=== PATIENT | female | born 1955 | race Caucasian/White ===

== ENCOUNTER 2017-10-30 08:05 | Outpatient (RCR) | payer OTHER, MEDICAID, SELFPAY | END 2017-11-08 23:59 | LOC: WC 08:05 | PROVIDERS: Family Provider Family Medicine Geriatric Medicine; PCP Family Medicine Geriatric Medicine; Visit Provider Nurse Practitioner | DX: E11.622 Type 2 diabetes mellitus with other skin ulcer (principal); Z86.14 Personal history of Methicillin resistant Staphylococcus aureus infection; L97.822 Non-pressure chronic ulcer of other part of left lower leg with fat layer exposed | CPT/HCPCS: 97605; 99212; G0463 ==

== ENCOUNTER → 2017-11-18 14:26 | Outpatient (CLI) | payer OTHER, MEDICAID, SELFPAY | PROVIDERS: Family Provider Family Medicine Geriatric Medicine; PCP Family Medicine Geriatric Medicine; Visit Provider Family Medicine Geriatric Medicine | DX: R19.7 Diarrhea, unspecified (principal) | CPT/HCPCS: 82274; 83630; 87177; 87209; 87493; 87506 ==

== ENCOUNTER 2017-12-07 08:15 | Outpatient (RCR) | payer OTHER, MEDICAID, SELFPAY ==
[2017-11-16 09:27] VITALS: BP 103/50; PULSE 104; RESP 18; TEMP 35.5
--- NOTE | 2017-11-16 10:15 | PN.PCM_ITS ---
Type of Wound Date of Service: 11/16/17 Chief Complaint: Nonhealing MRSA ulcer left knee. History of Wound: Surgery 10/20/17 - Surgical preparation left knee with incision and drainage and excisional debridement nonhealing diabetic MRSA ulcer (9 cm2). Wound care - VAC. Operative culture - negative. Was treated with Doxycycline perioperatively and has finished them. She has a history of MRSA from a culture in 05/25. Prealbumin from 10/21/17 was 13.5. She takes nutritional supplementation with protein to help the healing process. CT scan from 09/24/17 showed subcutaneous edema/cellulitis and no evidence of soft tissue abscess or osteomyelitis. Status post total knee arthroplasty. Today she denies any fever. Her appetite is good. Progress of Wound: Recent surgery on 10/20/17. - Physical Exam Vital Signs Temp Pulse Resp BP 96 F L 104 H 18 103/50 L 11/16/17 09:27 11/16/17 09:27 11/16/17 09:27 11/16/17 09:27 Wound Measurements and Assessment - Nurse 1 - General Ulcer Measurement Start: 11/16/17 08:40 Freq: Status: Active Protocol: Activity Type Activity Date Activity User E-Sign Co-Sign Detail Recorded Client Recorded Date Recorded By Document 11/16/17 09:27 DL [id number] 11/16/17 09:29 DL 11/16/17 09:27 Wound Center Nurse 1 [Ulcer Assessment Protocol: WC.WD.LOC] #2 L Knee -Current Size (cm) - Length 2.5 -Current Size (cm) - Width 4.2 -Current Size (cm) - Depth 1.2 -Total Square Cm 10.50 -Photo Taken No -Undermining/Tunneling Starts (O' 9 clock) -Undermining/Tunneling Ends (O'clock) 12 -Maximum Distance (cm) 1.6 -Exudate Amt Medium (34-66%) -Exudate Type Serosanguineous -Wound Margin Distinct, Outline Attached -Granulation Amt Large (67-100%) -Granulation Quality Red -Necrosis Amt Small (1-33%) -Necrotic Tissue Type Adherent Slough -Structure Exposed N/A -Texture (Sena-wound Skin Appearance) No Abnormality -Moisture (Sena-wound Skin Appearance No Abnormality ) -Color (Sena-wound Skin Appearance) No Abnormality -Temperature (Sena-wound Skin No Abnormality Appearance) (Pt Warm) -Ulcer Cleansing Wound Cleanser -Foul Odor after Cleansing No -Anesthetic Used 4% Lidocaine Solution KRANTHI - Nurse 2 - General Ulcer CM Notes Start: 11/16/17 08:40 Freq: Status: Active Protocol: Activity Type Activity Date Activity User E-Sign Co-Sign Detail Recorded Client Recorded Date Recorded By Document 11/16/17 09:04 JESS [id number] 11/16/17 09:07 11/16/17 09:04 Wound Center Nurse 2 [Procedure/Treatment] #3- LT LOWER LATERAL LENZ -Time 09:05 -Post Debridement Size (cm) - Length 0 -Post Debridement Size (cm) - Width 0 -Post Debridement Size (cm) - Depth 0 -Total Square Cm 0 -Wound/Ulcer Outcome Healed- Epithelialized -Foul Odor after Cleansing No -Bioengineered Tissue No -Cetacaine [place] No -Bleeding Controlled with Pressure -Treatment Response Procedure Tolerated Well #2 L Knee -Time 09:07 -Correct Patient Yes -Correct Side, Site, Position Yes -Correct Procedure Yes -Procedure Performed Yes -Type of Procedure Debridement -Clinical Debridement Subcutaneous -Post Debridement Size (cm) - Length 2.5 -Post Debridement Size (cm) - Width 4.3 -Post Debridement Size (cm) - Depth 1.2 -Total Square Cm 10.75 -Wound/Ulcer Outcome Not Healed -Ulcer Cleansing Rinsed/ Irrigated with Saline -Foul Odor after Cleansing No -Bioengineered Tissue No -Cetacaine [place] No -Bleeding Controlled with Pressure -Treatment Response Procedure Tolerated Well [See Physician Procedure note for Specifics] Pain Scale: 0-10 Numeric [Pain] -Is Patient Pain Free? Yes Debridement Note Post-Debridement Measurements/Treatment [email or web address] - Nurse 2 - General Ulcer CM Notes Start: 11/16/17 08:40 Freq: Status: Active Protocol: Activity Type Activity Date Activity User E-Sign Co-Sign Detail Recorded Client Recorded Date Recorded By Document 11/16/17 09:04 JESS [id number] 11/16/17 09:07 11/16/17 09:04 Wound Center Nurse 2 #3- LT LOWER LATERAL LENZ -Time 09:05 -Post Debridement Size (cm) - Length 0 -Post Debridement Size (cm) - Width 0 -Post Debridement Size (cm) - Depth 0 -Total Square Cm 0 -Wound/Ulcer Outcome Healed- Epithelialized -Foul Odor after Cleansing No -Bioengineered Tissue No -Cetacaine [place] No -Bleeding Controlled with Pressure -Treatment Response Procedure Tolerated Well #2 L Knee -Time 09:07 -Correct Patient Yes -Correct Side, Site, Position Yes -Correct Procedure Yes -Procedure Performed Yes -Type of Procedure Debridement -Clinical Debridement Subcutaneous -Post Debridement Size (cm) - Length 2.5 -Post Debridement Size (cm) - Width 4.3 -Post Debridement Size (cm) - Depth 1.2 -Total Square Cm 10.75 -Wound/Ulcer Outcome Not Healed -Ulcer Cleansing Rinsed/ Irrigated with Saline -Foul Odor after Cleansing No -Bioengineered Tissue No -Cetacaine [place] No -Bleeding Controlled with Pressure -Treatment Response Procedure Tolerated Well Pain Scale: 0-10 Numeric Is Patient Pain Free? Yes Wound debrided: #2 Left knee. Laterality: Left Wound Grade/Stage: 2. Type of Debridement: Excisional debridement Anesthesia Used: 4% Lidocaine Solution Depth: Down to and including healthy tissue, in the subcutaneous layer Percentage of wound debrided: 100 Instrument Used: 5mm curette Tissue Removed: subcutanenous tissue. Severity: Fat Layer Exposed Amount of bleeding with debridement: Mild Bleeding Controlled with: Pressure Patient tolerated procedure well Assessment/Plan Assessment: 1. Nonhealing MRSA diabetic ulcer left knee. 2. History of MRSA. 3. History of left knee arthroplasty. 4. Former smoker. 5. s/p surgical preparation left knee with incision and drainage and excisional debridement nonhealing diabetic MRSA ulcer (9 cm2). Plan: Continue the VAC. She is finished with the Doxycyline. The operative culture was negative. She does have a history of MRSA from a culture in 05/25. There was some confusion of whether the patient is diabetic. She says not. Her HgbA1c from 10/13/17 was normal at 5.7. She is on no diabetic medications. Prealbumin from 10/21/17 was 13.5. She takes nutritional supplementation with protein to help the healing process. Keep her left leg elevated when sitting. Renewed her Percocet for pain, one tab (30 tabs). Followup 2 weeks.
[2017-12-07 08:33] VITALS: BP 142/82; PULSE 72; RESP 18; TEMP 36.4
--- NOTE | 2017-12-10 21:39 | PN.PCM_ITS ---
Type of Wound Date of Service: 12/07/17 Chief Complaint: Nonhealing MRSA ulcer left knee. History of Wound: Surgery 10/20/17 - Surgical preparation left knee with incision and drainage and excisional debridement nonhealing diabetic MRSA ulcer (9 cm2). Wound care - VAC. Operative culture - negative. Was treated with Doxycycline perioperatively and has finished them. She has a history of MRSA from a culture in 05/25. Prealbumin from 10/21/17 was 13.5. She takes nutritional supplementation with protein to help the healing process. CT scan from 09/24/17 showed subcutaneous edema/cellulitis and no evidence of soft tissue abscess or osteomyelitis. Status post total knee arthroplasty. Today she denies any fever. Her appetite is good. Progress of Wound: Recent surgery on 10/20/17. - Physical Exam Vital Signs Temp Pulse Resp BP 97.6 F L 72 18 142/82 H 12/07/17 08:33 12/07/17 08:33 12/07/17 08:33 12/07/17 08:33 Debridement Note Post-Debridement Measurements/Treatment WC - Nurse 2 - General Ulcer CM Notes Start: 11/16/17 08:40 Freq: Status: Active Protocol: Activity Type Activity Date Activity User E-Sign Co-Sign Detail Recorded Client Recorded Date Recorded By Document 11/16/17 09:04 [id number] 11/16/17 09:07 Document 12/07/17 08:49 [id number] 12/07/17 08:50 11/16/17 12/07/17 09:04 08:49 Wound Center Nurse 2 #3- LT LOWER LATERAL LENZ -Time 09:05 -Post Debridement Size (cm) - Length 0 -Post Debridement Size (cm) - Width 0 -Post Debridement Size (cm) - Depth 0 -Total Square Cm 0 -Wound/Ulcer Outcome Healed- Epithelialized -Foul Odor after Cleansing No -Bioengineered Tissue No -Cetacaine [place] No -Bleeding Controlled with Pressure -Treatment Response Procedure Tolerated Well #2 L Knee -Time 09:07 08:49 -Correct Patient Yes Yes -Correct Side, Site, Position Yes Yes -Correct Procedure Yes Yes -Procedure Performed Yes Yes -Type of Procedure Debridement Debridement -Clinical Debridement Subcutaneous Subcutaneous -Post Debridement Size (cm) - Length 2.5 2.3 -Post Debridement Size (cm) - Width 4.3 3.4 -Post Debridement Size (cm) - Depth 1.2 0.2 -Total Square Cm 10.75 7.82 -Wound/Ulcer Outcome Not Healed Not Healed -Ulcer Cleansing Rinsed/ Rinsed/ Irrigated with Irrigated with Saline Saline -Foul Odor after Cleansing No No -Bioengineered Tissue No No -Cetacaine [place] No No -Bleeding Controlled with Pressure Pressure -Treatment Response Procedure Procedure Tolerated Well Tolerated Well Pain Scale: 0-10 Numeric Is Patient Pain Free? Yes Yes Wound debrided: #2 Left knee. Laterality: Left Wound Grade/Stage: 2. Type of Debridement: Excisional debridement Anesthesia Used: 4% Lidocaine Solution Depth: Down to and including healthy tissue, in the subcutaneous layer Percentage of wound debrided: 100 Instrument Used: 5mm curette Tissue Removed: subcutaneous tissue. Severity: Fat Layer Exposed Amount of bleeding with debridement: Mild Bleeding Controlled with: Pressure Patient tolerated procedure well Assessment/Plan Active Problems (Last Updated 04/29/18 @ 15:18 by Cee Mcnulty DO) Non-healing wound of lower extremity (Acute) Assessment: 1. Nonhealing MRSA diabetic ulcer left knee. 2. History of MRSA. 3. History of left knee arthroplasty. 4. Former smoker. 5. s/p surgical preparation left knee with incision and drainage and excisional debridement nonhealing diabetic MRSA ulcer (9 cm2). Plan: Continue the VAC. She is finished with the Doxycyline. The operative culture was negative. She does have a history of MRSA from a culture in 05/25. There was some confusion of whether the patient is diabetic. She says not. Her HgbA1c from 10/13/17 was normal at 5.7. She is on no diabetic medications. Prealbumin from 10/21/17 was 13.5. She takes nutritional supplementation with protein to help the healing process. Keep her left leg elevated when sitting. Renewed her Percocet for pain, one tab (30 tabs). Followup 2 weeks.
== END 2017-12-09 23:59 ==
LOC: WC 08:15
PROVIDERS: Family Provider Family Medicine Geriatric Medicine; PCP Family Medicine Geriatric Medicine; Visit Provider Surgery
DX: E11.622 Type 2 diabetes mellitus with other skin ulcer (principal); L97.822 Non-pressure chronic ulcer of other part of left lower leg with fat layer exposed; Z87.891 Personal history of nicotine dependence; Z86.14 Personal history of Methicillin resistant Staphylococcus aureus infection
CPT/HCPCS: 11042; 97605

== ENCOUNTER 2017-12-28 13:01 | Day surgery (SDC) | payer OTHER, MEDICAID, SELFPAY ==
[2017-12-28] VITALS (8 sets, daily range): BP systolic 119–152; BP diastolic 86–119; PULSE 64–139; RESP 16–22; TEMP 36.2–36.6; O2SAT 90–99; BMI 43.7
--- NOTE | 2017-12-28 14:43 | EKG12_ITS ---
Test Reason : AFIB RVR Blood Pressure : / mmHG Vent. Rate : 133 BPM Atrial Rate : 125 BPM P-R Int : 000 ms QRS Dur : 078 ms QT Int : 336 ms P-R-T Axes : 000 008 137 degrees QTc Int : 500 ms Atrial fibrillation with premature ventricular or aberrantly conducted complexes Posterior infarct , age undetermined Abnormal ECG When compared with ECG of 15-AUG-2017 19:46, Nonspecific T wave abnormality now evident in Inferior leads T wave inversion now evident in Anterior leads Nonspecific T wave abnormality has replaced inverted T waves in Lateral leads Confirmed by ROSALINDA ADKINS ([id number]), news video editor ABI CRAIG ([id number]) on 12/31/2017 3:13:03 PM Referred By: Dakotah Jj Confirmed By:ROSALINDA ADKINS
== END 2017-12-28 16:05 | disposition home or self-care (01) ==
LOC: SDC 13:02 → AC 13:03
PROVIDERS: Anesthesiology; Family Provider Family Medicine Geriatric Medicine; PCP Family Medicine Geriatric Medicine; Visit Provider Anesthesiology Pain Medicine
PROC: (CPT 64635; principal; 2017-12-28 14:30)
DX: M47.817 Spondylosis without myelopathy or radiculopathy, lumbosacral region (principal); M51.16 Intervertebral disc disorders with radiculopathy, lumbar region; Z53.09 Procedure and treatment not carried out because of other contraindication; I48.2 Chronic atrial fibrillation; I10 Essential (primary) hypertension; K74.60 Unspecified cirrhosis of liver; Z87.891 Personal history of nicotine dependence; Z79.899 Other long term (current) drug therapy; Z79.01 Long term (current) use of anticoagulants; Z79.891 Long term (current) use of opiate analgesic; M48.061 Spinal stenosis, lumbar region without neurogenic claudication
CPT/HCPCS: 64635; 84484; 93005; J7120

== ENCOUNTER → 2017-12-29 11:55 | Outpatient (CLI) | payer OTHER, MEDICAID, SELFPAY | PROVIDERS: Family Provider Family Medicine Geriatric Medicine; PCP Family Medicine Geriatric Medicine; Visit Provider Family Medicine Geriatric Medicine | DX: R68.83 Chills (without fever) (principal) | CPT/HCPCS: 87633 ==

== ENCOUNTER 2018-01-04 09:00 | Outpatient (RCR) | payer OTHER, MEDICAID, SELFPAY ==
[2017-11-16 11:38] VITALS: BMI 43.2
[2017-11-16 14:03] VITALS: BP 107/68
[2017-12-07 08:33] VITALS: BP 142/82
[2017-12-10 00:58] VITALS: PULSE 72; RESP 18; TEMP 36.4
--- NOTE | 2017-12-15 12:51 | VDLE_ITS ---
Reason For Study: Non-healing wound RIGHT LEFT GSV is normal. GSV is normal. CFV is compressible, spontaneous, phasic, CFV is compressible, spontaneous, phasic, competent and demonstrates normal competent, and demonstrates normal augmentation. augmentation. FV is compressible, spontaneous, phasic, FV is compressible, spontaneous, phasic, competent and demonstrates normal competent and demonstrates normal augmentation. augmentation. POP V is compressible, spontaneous, phasic, POP V is compressible, spontaneous, phasic, competent and demonstrates normal competent and demonstrates normal augmentation. augmentation. T/P Trunk is compressible. T/P Trunk is compressible. PTV is compressible. PTV is compressible. RT PerV is compressible. LT PerV is compressible. SFJ is INCOMPETENT SFJ is competent GSV is INCOMPETENT with reflux greater GSV is competent above knee than .5 sec and diameter of .65 x .71 cm GSV is INCOMPETENT below knee with reflux SSV is competent. geater than .5 sec and diameter of .52 x .58 Procedure cm Exam performed in department. SSV is INCOMPETENT with reflux greater A preliminary report was called and/or faxed than .5 sec and diameter of .90 x .83 cm. to [facility]. Interpretation Summary Deep veins of the lower extremities are bilaterally patent and compressible segmentally. There is no evidence of deep vein thrombosis on either side. Valvular competence appears intact within the proximal deep venous systems bilaterally. The greater saphenous veins appear bilaterally patent and compressible segmentally. The right sapheno-femoral junction is incompetent . The left sapheno- femoral junction is competent . The right greater saphenous vein appears segmentally incompetent. The left greater saphenous vein appears competent above the knee. The left greater saphenous vein appears incompetent below the knee. The right small saphnous vein is patent and competent. The left small saphenous vein is patent and incompetent. Ordering Physician: Alok Bliss Referring Physician: Osiel Grimaldo Chi Performed By: Leticia Han RVT
--- NOTE | 2017-12-17 14:13 | LEAS_ITS ---
Arterial Study - Arterial Study Arterial Study: This is a 62-year-old female with a history of hypertension, obesity, and atrial fibrillation. She presents with a chronic nonhealing wound to the left lower extremity. Suspecting the presence of atherosclerotic peripheral arterial occlusive disease, the patient was brought to the noninvasive vascular laboratory at this time for the purpose of bilateral noninvasive lower extremity arterial assessment. Doppler signal assessment was used to evaluate the pulses at ankle level bilaterally. The posterior tibial and dorsalis pedis pulses were triphasic bilaterally. Segmental limb pressures were obtained bilaterally. Ankle pressures, as determined by posterior tibial and dorsalis pedis pulses, could not be determined on either side due to the noncompressibility of the vasculature. The right digital pressure was measured at 121 mmHg. The left digital pressure was measured at 122 mmHg. Pulse-volume recordings were obtained bilaterally and segmentally. Waveform amplitudes appeared to be satisfactory at all levels bilaterally, including low thigh, calf, ankle, and digital levels. Resting ankle-brachial indices could not be determined on either side due to the noncompressibility of the vasculature. Digital-brachial indices were calculated bilaterally. The right and left digital-brachial indices were 0.75 bilaterally. Impression: Based upon the findings of this resting noninvasive lower extremity study, there is evidence of arterial calcification at ankle level bilaterally, rendering the arterial tree noncompressible. As a result, ankle- brachial indices can not be determined. However, triphasic waveforms were noted in ankle level bilaterally, suggesting relatively normal perfusion at ankle level bilaterally. Digital-brachial indices are bilaterally normal, suggesting relatively normal perfusion at digital level bilaterally. Clinical correlation is advised.
[2017-12-21 10:28] VITALS: BP 151/106; PULSE 125; RESP 20; TEMP 36.4; BMI 43.2
--- NOTE | 2017-12-21 16:42 | PN.PCM_ITS ---
Type of Wound Date of Service: 12/21/17 Chief Complaint: Nonhealing MRSA ulcer left knee. History of Wound: Surgery 10/20/17 - Surgical preparation left knee with incision and drainage and excisional debridement nonhealing diabetic MRSA ulcer (9 cm2). Wound care - VAC. Operative culture - negative. Was treated with Doxycycline perioperatively and has finished them. She has a history of MRSA from a culture in 05/25. Prealbumin from 10/21/17 was 13.5. She takes nutritional supplementation with protein to help the healing process. CT scan from 09/24/17 showed subcutaneous edema/cellulitis and no evidence of soft tissue abscess or osteomyelitis. Status post total knee arthroplasty. Today she denies any fever. Her appetite is good. Progress of Wound: Recent surgery on 10/20/17. - Physical Exam Vital Signs Temp Pulse Resp BP 97.5 F L 125 H 20 H 151/106 H 12/21/17 10:28 12/21/17 10:28 12/21/17 10:28 12/21/17 10:28 Wound Measurements and Assessment - Nurse 1 - General Ulcer Measurement Start: 12/21/17 10:27 Freq: Status: Active Protocol: Activity Type Activity Date Activity User E-Sign Co-Sign Detail Recorded Client Recorded Date Recorded By Document 12/21/17 10:28 [facility] [id number] 12/21/17 10:35 [facility] 12/21/17 10:28 Wound Center Nurse 1 [Ulcer Assessment Protocol: .WD.LOC] #2 L Knee -Combined with other wound No -Current Size (cm) - Length 1.2 -Current Size (cm) - Width 2.1 -Current Size (cm) - Depth 0.1 -Total Square Cm 2.52 -Photo Taken No -Epithelialization Small 1-33% -Tunneling No -Undermining/Tunneling No -Exudate Amt Small (1-33%) -Exudate Type Serosanguineous -Wound Margin Distinct, Outline Attached -Granulation Amt Medium (34-66%) -Granulation Quality [place] -Slough/Fibrin Yes -Necrosis Amt Small (1-33%) -Necrotic Tissue Type Adherent Slough -Structure Exposed None/Limited to Skin Breakdown -Texture (Sena-wound Skin Appearance) Scarring -Moisture (Sena-wound Skin Appearance Assessed ) -Color (Sena-wound Skin Appearance) Assessed -Temperature (Sena-wound Skin No Abnormality Appearance) (Pt Warm) -Tenderness on Palpation (Sena-wound No Skin Appearance) -Ulcer Cleansing Rinsed/ Irrigated with Saline -Foul Odor after Cleansing No -Anesthetic Used 4% Lidocaine Solution [Edema Assessment] -Lower Limb Edema Present Yes -Left Calf (cm) 48.6 -Left Ankle (cm) 25.6 WC - Nurse 2 - General Ulcer CM Notes Start: 12/21/17 10:27 Freq: Status: Active Protocol: Activity Type Activity Date Activity User E-Sign Co-Sign Detail Recorded Client Recorded Date Recorded By Document 12/21/17 10:58 [id number] 12/21/17 10:59 12/21/17 10:58 Wound Center Nurse 2 [Procedure/Treatment] #2 L Knee -Time 10:58 -Correct Patient Yes -Correct Side, Site, Position Yes -Correct Procedure Yes -Procedure Performed Yes -Type of Procedure Debridement -Clinical Debridement Subcutaneous -Post Debridement Size (cm) - Length 1.2 -Post Debridement Size (cm) - Width 2.2 -Post Debridement Size (cm) - Depth 0.1 -Total Square Cm 2.64 -Wound/Ulcer Outcome Not Healed -Ulcer Cleansing Rinsed/ Irrigated with Saline -Foul Odor after Cleansing No -Bioengineered Tissue No -Bleeding Controlled with Pressure -Treatment Response Procedure Tolerated Well [See Physician Procedure note for Specifics] Pain Scale: 0-10 Numeric [Pain] -Is Patient Pain Free? Yes Debridement Note Post-Debridement Measurements/Treatment - Nurse 2 - General Ulcer CM Notes Start: 12/21/17 10:27 Freq: Status: Active Protocol: Activity Type Activity Date Activity User E-Sign Co-Sign Detail Recorded Client Recorded Date Recorded By Document 12/21/17 10:58 [id number] 12/21/17 10:59 12/21/17 10:58 Wound Center Nurse 2 #2 L Knee -Time 10:58 -Correct Patient Yes -Correct Side, Site, Position Yes -Correct Procedure Yes -Procedure Performed Yes -Type of Procedure Debridement -Clinical Debridement Subcutaneous -Post Debridement Size (cm) - Length 1.2 -Post Debridement Size (cm) - Width 2.2 -Post Debridement Size (cm) - Depth 0.1 -Total Square Cm 2.64 -Wound/Ulcer Outcome Not Healed -Ulcer Cleansing Rinsed/ Irrigated with Saline -Foul Odor after Cleansing No -Bioengineered Tissue No -Bleeding Controlled with Pressure -Treatment Response Procedure Tolerated Well Pain Scale: 0-10 Numeric Is Patient Pain Free? Yes Wound debrided: #2 Left knee. Laterality: Left Wound Grade/Stage: 2. Type of Debridement: Excisional debridement Anesthesia Used: 4% Lidocaine Solution Depth: Down to and including healthy tissue, in the subcutaneous layer Percentage of wound debrided: 100 Instrument Used: 5mm curette Tissue Removed: subcutaneous tissue. Severity: Fat Layer Exposed Amount of bleeding with debridement: Mild Bleeding Controlled with: Pressure Patient tolerated procedure well Assessment/Plan Active Problems (Last Updated 04/29/18 @ 15:18 by Cee Mcnulty DO) Non-healing wound of lower extremity (Acute) Assessment: 1. Nonhealing MRSA diabetic ulcer left knee. 2. History of MRSA. 3. History of left knee arthroplasty. 4. Former smoker. 5. s/p surgical preparation left knee with incision and drainage and excisional debridement nonhealing diabetic MRSA ulcer (9 cm2). Plan: Continue the VAC. She is finished with the Doxycyline. The operative culture was negative. She does have a history of MRSA from a culture in 05/25. There was some confusion of whether the patient is diabetic. She says not. Her HgbA1c from 10/13/17 was normal at 5.7. She is on no diabetic medications. Prealbumin from 10/21/17 was 13.5. She takes nutritional supplementation with protein to help the healing process. Keep her left leg elevated when sitting. Renewed her Percocet for pain, one tab (30 tabs). Followup 2 weeks.
[2018-01-04 10:50] VITALS: BP 147/79; PULSE 104; RESP 18; TEMP 36.3; BMI 43.2
== END 2018-01-06 23:59 ==
LOC: WC 09:00
PROVIDERS: Family Provider Family Medicine Geriatric Medicine; PCP Family Medicine Geriatric Medicine; Visit Provider Surgery
DX: I83.029 Varicose veins of left lower extremity with ulcer of unspecified site (principal); L97.821 Non-pressure chronic ulcer of other part of left lower leg limited to breakdown of skin; Z86.14 Personal history of Methicillin resistant Staphylococcus aureus infection; Z87.891 Personal history of nicotine dependence; I10 Essential (primary) hypertension; I48.91 Unspecified atrial fibrillation; R60.0 Localized edema; I70.248 Atherosclerosis of native arteries of left leg with ulceration of other part of lower leg; I70.201 Unspecified atherosclerosis of native arteries of extremities, right leg
CPT/HCPCS: 11042; 93923; 93970; 99213; G0463

== ENCOUNTER 2018-01-25 07:00 | Day surgery (SDC) | payer OTHER, MEDICAID, SELFPAY ==
[2018-01-25 07:28] VITALS: BP 118/79; PULSE 77; RESP 16; TEMP 36.2; O2SAT 98; BMI 42.5
--- NOTE | 2018-01-25 08:40 | RAD_ITS ---
STUDY: X-RAY - LUMBAR SPINE REASON FOR EXAM: Female, 62 years old. Imaging provided for right L3-S1 radiofrequency ablation. TECHNIQUE: 9 coned-down intraoperative view(s) of the lumbar spine were obtained. COMPARISON: None FINDINGS: Intraoperative imaging provided for right L3-S1 radiofrequency ablation. RAD/L/S Spine Min 4 Views IMPRESSION: Imaging provided for right L3-S1 radiofrequency ablation. Electronically Signed: Dwight Ledbetter MD at 11:15 EDT Tel [phone], Service support ,
[2018-01-25] MEDS: MethylPREDNISolone Acetate 80 MG/ML Vial (08:47)
[2018-01-25] MEDS: Bupivacaine 0.25% 30 ML Vial (08:47)
[2018-01-25 09:07] VITALS: BP 118/79; BP 119/70; PULSE 77; RESP 16; TEMP 36.4; O2SAT 93
[2018-01-25 09:12] VITALS: BP 111/74; BP 118/79; PULSE 82; RESP 16; O2SAT 94
[2018-01-25 09:17] VITALS: BP 118/79; BP 118/85; PULSE 83; RESP 16; O2SAT 95
[2018-01-25 09:22] VITALS: BP 118/79; BP 122/93; PULSE 77; RESP 16; TEMP 36.2; O2SAT 95
[2018-01-25 09:57] VITALS: BP 118/79
--- NOTE | 2018-01-25 10:19 | PCM.OPRPT ---
Problem List (1) Degeneration of lumbosacral intervertebral disc Status: Chronic (2) Lumbosacral spondylosis Status: Chronic Report of Operation Date of Procedure: 01/25/18 Pre-Operative Diagnosis: Lumbosacral spondylosis, lumbosacral degenerative disc disease, lumbar facet arthropathy Post-Operative Diagnosis: Lumbosacral spondylosis, lumbosacral degenerative disc disease, lumbar facet arthropathy Surgery/Procedure Performed:: Right sided radiofrequency ablation of the medial branch at L3, L4, L5, S1 Description of Surgical Findings:: PROCEDURE: Right-sided radiofrequency ablation of the medial branch L3, L4, L5, S1 PREOPERATIVE DIAGNOSES: Lumbosacral spondylosis, lumbosacral degenerative disc disease, lumbar facet arthropathy POSTOPERATIVE DIAGNOSES: Lumbosacral spondylosis, lumbosacral degenerative disc disease, lumbar facet arthropathy ANESTHESIA: MAC COMPLICATIONS: None BLOOD LOSS: Minimal PROCEDURE IN DETAIL: History and physical today was reviewed. Risks and benefits of procedure explained. The patient understood, agreed to the procedure and informed consent was obtained. IV inserted per routine protocol. The patient was taken to the operating room, placed in the prone position with a pillow positioned underneath the abdomen. The right side of the lower back was prepped and draped in a sterile fashion using iodine x 3. Under fluoroscopy guidance, on an oblique view, the L3 through S1 vertebral bodies were visualized. The skin and subcutaneous tissue was anesthetized with approximately 10 mL of 1% lidocaine using a 25-gauge regular needle. Under direct visualization with fluoroscopy at approximately 25-degree angle, starting on the right L3, ending on the right S1 passing through the L4-L5 using a 20-gauge 15 cm with a 10 mm curved active tip radiofrequency ablation needle the needle passed through the skin. The tip of the needle was maneuvered and directed towards the superior and medial gutter of the transverse process at the vicinity of the medial branch. Once the tip of the needle was in contact with the bone, the needle pulled approximately 2 mm up the bone. The stylet of each needle was then removed. After negative aspiration of blood with CSF and confirmation of AP as well as oblique view, radiofrequency ablation probe was then inserted at each level. Impedance was then recorded at L3 to be 208, at L4 234, at L5 264, at S1 290 ohm. Motor-evoked potential was then initiated to 1.5 volt without any motor response at each corresponding level. The probe was then removed intact and a total of 6 mL preservative-free 1% lidocaine was injected in divided doses between those 4 levels after negative aspiration of blood with CSF. The radiofrequency ablation probe was then reinserted after confirmation of AP, oblique as well as lateral view. Radiofrequency ablation was then initiated to 80 degrees Celsius for 90 seconds at each level. Once concluded, the probe was then removed intact and a total of 6 mL of preservative-free 0.25% Marcaine with 40 mg Depo-Medrol was injected in divided doses between those 4 levels. The needles were then removed intact. The patient experienced no signs or symptoms of intrathecal, intravascular injection. The patient experienced no paraesthesia. The procedure was completed without any apparent difficulty, any complication. The patient appeared to tolerate well. Sensory as well as motor exam was unchanged from prior to procedure. ASSESSMENT AND PLAN: This is a 62-year-old Female with lumbosacral spondylosis, lumbosacral degenerative disc disease, lumbar facet arthropathy, status post right-sided radiofrequency ablation of the medial branch L3 through S1. The patient will continue her current medications. The patient will follow up in approximately 2 weeks for reevaluation.
== END 2018-01-25 10:01 | disposition home or self-care (01) ==
LOC: SDC 07:03 → AC 07:03
PROVIDERS: Family Provider Family Medicine Geriatric Medicine; PCP Family Medicine Geriatric Medicine; Visit Provider Anesthesiology Pain Medicine
PROC: (CPT 64635; principal; 2018-01-25 08:50)
DX: M51.17 Intervertebral disc disorders with radiculopathy, lumbosacral region (principal); M47.27 Other spondylosis with radiculopathy, lumbosacral region; Z79.899 Other long term (current) drug therapy; Z79.01 Long term (current) use of anticoagulants; Z79.891 Long term (current) use of opiate analgesic; I48.91 Unspecified atrial fibrillation; I10 Essential (primary) hypertension; Z87.891 Personal history of nicotine dependence; G43.909 Migraine, unspecified, not intractable, without status migrainosus; K21.9 Gastro-esophageal reflux disease without esophagitis; K74.69 Other cirrhosis of liver; K50.90 Crohn's disease, unspecified, without complications
CPT/HCPCS: 01936; 64635; 64636 ×2; 72110; 76000; J7120

== ENCOUNTER 2018-02-01 09:00 | Outpatient (RCR) | payer OTHER, MEDICAID, SELFPAY ==
[2018-01-07 00:46] VITALS: BP 142/82; PULSE 104; RESP 18; TEMP 36.3
[2018-01-11 08:30] VITALS: BP 152/82; PULSE 73; RESP 18; TEMP 36
--- NOTE | 2018-01-11 22:21 | PCM.WC.PN ---
Type of Wound Date of Service: 01/11/18 Chief Complaint: Nonhealing MRSA ulcer left knee. History of Wound: Surgery 10/20/17 - Surgical preparation left knee with incision and drainage and excisional debridement nonhealing diabetic MRSA ulcer (9 cm2). Wound care - Silver. Operative culture - negative. Was treated with Doxycycline perioperatively and has finished them. She has a history of MRSA from a culture in 05/25. Prealbumin from 10/21/17 was 13.5. She takes nutritional supplementation with protein to help the healing process. CT scan from 09/24/17 showed subcutaneous edema/cellulitis and no evidence of soft tissue abscess or osteomyelitis. Status post total knee arthroplasty. Today she denies any fever. Her appetite is good. Progress of Wound: Improved. - Physical Exam Vital Signs Temp Pulse Resp BP 96.8 F L 73 18 152/82 H 01/11/18 08:30 01/11/18 08:30 01/11/18 08:30 01/11/18 08:30 Wound Measurements and Assessment WC - Nurse 1 - General Ulcer Measurement Start: 01/11/18 08:30 Freq: Status: Active Protocol: Activity Type Activity Date Activity User E-Sign Co-Sign Detail Recorded Client Recorded Date Recorded By Document 01/11/18 08:30 [id number] 01/11/18 08:32 TM 01/11/18 08:30 Wound Center Nurse 1 [Ulcer Assessment] #2 L Knee -Combined with other wound No -Current Size (cm) - Length 0.4 -Current Size (cm) - Width 1.1 -Current Size (cm) - Depth 0.1 -Total Square Cm 0.44 -Date of Last Picture (Recall this 01/11/18 field) -Photo Taken Yes -Epithelialization Small 1-33% -Tunneling No -Undermining/Tunneling No -Circular Undermining No -Classification - Thickness Full Thickness without Exposed Support Structure -Exudate Amt Small (1-33%) -Exudate Type Serosanguineous -Wound Margin Distinct, Outline Attached -Granulation Amt Large (67-100%) -Granulation Quality Red -Slough/Fibrin Yes -Necrosis Amt Small (1-33%) -Necrotic Tissue Type Adherent Slough -Structure Exposed Fascia Fat Layer Exposed -Texture (Sena-wound Skin Appearance) Localized Edema Scarring -Moisture (Sena-wound Skin Appearance No Abnormality ) -Color (Sena-wound Skin Appearance) Erythema -Temperature (Sena-wound Skin No Abnormality Appearance) (Pt Warm) -Tenderness on Palpation (Sena-wound Yes Skin Appearance) -Ulcer Cleansing Rinsed/ Irrigated with Saline -Foul Odor after Cleansing No -Anesthetic Used 4% Lidocaine Solution [Edema Assessment] -Lower Limb Edema Present Yes -Right Calf (cm) 46.1 -Right Ankle (cm) 24.4 -Left Calf (cm) 44.6 -Left Ankle (cm) 24.8 KRANTHI - Nurse 2 - General Ulcer CM Notes Start: 01/11/18 08:30 Freq: Status: Active Protocol: Activity Type Activity Date Activity User E-Sign Co-Sign Detail Recorded Client Recorded Date Recorded By Document 01/11/18 08:47 JESS [id number] 01/11/18 08:49 JESS 01/11/18 08:47 Wound Center Nurse 2 [Procedure/Treatment] #2 L Knee -Time 08:49 -Correct Patient Yes -Correct Side, Site, Position Yes -Correct Procedure Yes -Procedure Performed Yes -Type of Procedure Debridement -Clinical Debridement Subcutaneous -Post Debridement Size (cm) - Length 0.5 -Post Debridement Size (cm) - Width 1.1 -Post Debridement Size (cm) - Depth 0.1 -Total Square Cm 0.55 -Wound/Ulcer Outcome Not Healed -Ulcer Cleansing Rinsed/ Irrigated with Saline -Foul Odor after Cleansing No -Bioengineered Tissue No -Bleeding Controlled with Pressure -Treatment Response Procedure Tolerated Well [See Physician Procedure note for Specifics] Pain Scale: 0-10 Numeric [Pain] -Is Patient Pain Free? Yes Debridement Note Post-Debridement Measurements/Treatment KRANTHI - Nurse 2 - General Ulcer CM Notes Start: 01/11/18 08:30 Freq: Status: Active Protocol: Activity Type Activity Date Activity User E-Sign Co-Sign Detail Recorded Client Recorded Date Recorded By Document 01/11/18 08:47 JF [id number] 01/11/18 08:49 JESS 01/11/18 08:47 Wound Center Nurse 2 #2 L Knee -Time 08:49 -Correct Patient Yes -Correct Side, Site, Position Yes -Correct Procedure Yes -Procedure Performed Yes -Type of Procedure Debridement -Clinical Debridement Subcutaneous -Post Debridement Size (cm) - Length 0.5 -Post Debridement Size (cm) - Width 1.1 -Post Debridement Size (cm) - Depth 0.1 -Total Square Cm 0.55 -Wound/Ulcer Outcome Not Healed -Ulcer Cleansing Rinsed/ Irrigated with Saline -Foul Odor after Cleansing No -Bioengineered Tissue No -Bleeding Controlled with Pressure -Treatment Response Procedure Tolerated Well Pain Scale: 0-10 Numeric Is Patient Pain Free? Yes Wound debrided: #2 Left knee. Laterality: Left Wound Grade/Stage: 2. Type of Debridement: Excisional debridement Anesthesia Used: 4% Lidocaine Solution Depth: Down to and including healthy tissue, in the subcutaneous layer Percentage of wound debrided: 100 Instrument Used: 5mm curette Tissue Removed: subcutaneous tissue. Severity: Fat Layer Exposed Amount of bleeding with debridement: Mild Bleeding Controlled with: Pressure Patient tolerated procedure well Assessment/Plan Active Problems (Last Updated 04/29/18 @ 15:18 by Cee Mcnulty DO) Non-healing wound of lower extremity (Acute) Assessment: 1. Nonhealing MRSA diabetic ulcer left knee. 2. History of MRSA. 3. History of left knee arthroplasty. 4. Former smoker. 5. s/p surgical preparation left knee with incision and drainage and excisional debridement nonhealing diabetic MRSA ulcer (9 cm2). Plan: Stop the Silver dressing and change to Collagen Hydrogel. Will also apply a 3M two layer compression wrap. She is finished with the Doxycyline. The operative culture was negative. She does have a history of MRSA from a culture in 05/25. Prealbumin from 10/21/17 was 13.5. She takes nutritional supplementation with protein to help the healing process. Keep her left leg elevated when sitting. Followup 3 weeks.
[2018-02-01 09:13] VITALS: BP 165/66; PULSE 131; RESP 18; TEMP 35.7
--- NOTE | 2018-02-01 19:14 | PCM.WC.PN ---
Type of Wound Date of Service: 02/01/18 Chief Complaint: Nonhealing MRSA ulcer left knee. History of Wound: Surgery 10/20/17 - Surgical preparation left knee with incision and drainage and excisional debridement nonhealing diabetic MRSA ulcer (9 cm2). Wound care - Collage Hydrogel. Operative culture - negative. Was treated with Doxycycline perioperatively and has finished them. She has a history of MRSA from a culture in 05/25. Prealbumin from 10/21/17 was 13.5. She takes nutritional supplementation with protein to help the healing process. CT scan from 09/24/17 showed subcutaneous edema/cellulitis and no evidence of soft tissue abscess or osteomyelitis. Status post total knee arthroplasty. Today she denies any fever. Her appetite is good. Progress of Wound: Healed. - Physical Exam Vital Signs Temp Pulse Resp BP 96.2 F L 131 H 18 165/66 H 02/01/18 09:13 02/01/18 09:13 02/01/18 09:13 02/01/18 09:13 General: Alert, Oriented x3 HEENT: PERRLA, EOMI Neck: Supple Lungs: Clear to auscultation Cardiovascular: Regular rate, Regular Rhythm Abdomen: Soft, Non-Distended Extremities: No clubbing, No cyanosis, Edema - mild edema in lower extremities. Skin: Ulcer/ Wound - left knee ulcer is healed. Neurological: Cranial nerves II-XII grossly intact Psych/Mental Status: Normal Affect, Appropriate Debridement Note Post-Debridement Measurements/Treatment WC - Nurse 2 - General Ulcer CM Notes Start: 01/11/18 08:30 Freq: Status: Active Protocol: Activity Type Activity Date Activity User E-Sign Co-Sign Detail Recorded Client Recorded Date Recorded By Document 01/11/18 08:47 [id number] 01/11/18 08:49 JESS 01/11/18 08:47 Wound Center Nurse 2 #5 L Knee -Time 08:49 -Correct Patient Yes -Correct Side, Site, Position Yes -Correct Procedure Yes -Procedure Performed Yes -Type of Procedure Debridement -Clinical Debridement Subcutaneous -Post Debridement Size (cm) - Length 0.5 -Post Debridement Size (cm) - Width 1.1 -Post Debridement Size (cm) - Depth 0.1 -Total Square Cm 0.55 -Wound/Ulcer Outcome Not Healed -Ulcer Cleansing Rinsed/ Irrigated with Saline -Foul Odor after Cleansing No -Bioengineered Tissue No -Bleeding Controlled with Pressure -Treatment Response Procedure Tolerated Well Pain Scale: 0-10 Numeric Is Patient Pain Free? Yes Wound debrided: #2 Left knee. Laterality: Left Wound Grade/Stage: 2. No debridement was completed today - The ulcer has healed. Assessment/Plan Active Problems (Last Updated 04/29/18 @ 15:18 by Cee Mcnulty DO) Non-healing wound of lower extremity (Acute) Assessment: 1. MRSA diabetic ulcer left knee, healed. 2. History of MRSA. 3. History of left knee arthroplasty. 4. Former smoker. 5. s/p surgical preparation left knee with incision and drainage and excisional debridement nonhealing diabetic MRSA ulcer (9 cm2). Plan: The ulcer has healed. Massage the scar with skin lotion daily to help soften up the scar. Order compression stockings (20-30 mmHg) to minimize swelling in her lower extremities. She will keep her legs elevated when sitting. Followup on an as needed basis.
== END 2018-02-06 23:59 ==
LOC: WC 09:00
PROVIDERS: Family Provider Family Medicine Geriatric Medicine; PCP Family Medicine Geriatric Medicine; Visit Provider Surgery
DX: E11.622 Type 2 diabetes mellitus with other skin ulcer (principal); Z86.14 Personal history of Methicillin resistant Staphylococcus aureus infection; Z87.891 Personal history of nicotine dependence; L97.822 Non-pressure chronic ulcer of other part of left lower leg with fat layer exposed
CPT/HCPCS: 11042; 29581; 99213; G0463

== ENCOUNTER → 2018-02-22 15:43 | Outpatient (CLI) | payer OTHER, MEDICAID, SELFPAY | PROVIDERS: Family Provider Family Medicine Geriatric Medicine; PCP Family Medicine Geriatric Medicine; Visit Provider Family Medicine Geriatric Medicine | DX: N39.0 Urinary tract infection, site not specified (principal) | CPT/HCPCS: 87086; 87088 ==

== ENCOUNTER 2018-03-07 16:49 | Emergency (ER) | payer OTHER, MEDICAID, SELFPAY ==
[2018-03-07 16:51] VITALS: BP 182/120; PULSE 127; RESP 16; TEMP 36.7; O2SAT 98; BMI 43.4
[2018-03-07 16:54] VITALS: BP 182/120; PULSE 125; RESP 16; O2SAT 97
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
[2018-03-07] MEDS: HYDROcodone Bitartrate/Apap 5/325 Tablet PO ×2 (17:28→18:27)
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
--- NOTE | 2018-03-07 17:53 | ED.DEP ---
ED Disposition - Plan for ED Patient: Disposition: Home or Assisted Living Chief Complaint: Lower Extremity Injury Instructions: ED Contusion Lower Ext Prescriptions: Hydrocodone/Acetaminophen [[place] 5-325 Tablet] 1 ea PO Q4H PRN PRN #14 tab PRN Reason: Pain Referrals: Osiel Grimaldo Chi, MD [Primary Care Provider] - 1 Week if not improving Additional Instructions: Elevate right leg. Review of the soft tissue bruise also noted is a contusion. [place] for pain. Follow-up your primary care physician.
--- NOTE | 2018-03-07 17:56 | DCINST.ED_ITS ---
ED Disposition - Plan for ED Patient: Disposition: Home or Assisted Living Chief Complaint: Lower Extremity Injury Instructions: ED Contusion Lower Ext Prescriptions: Hydrocodone/Acetaminophen [[place] 5-325 Tablet] 1 ea PO Q4H PRN PRN #14 tab PRN Reason: Pain Referrals: Osiel Grimaldo Chi, MD [Primary Care Provider] - 1 Week if not improving Additional Instructions: Elevate right leg. Review of the soft tissue bruise also noted is a contusion. [place] for pain. Follow-up your primary care physician.
== END 2018-03-07 18:37 | disposition home or self-care (01) ==
PROVIDERS: Emergency Provider Emergency Medicine; Family Provider Family Medicine Geriatric Medicine; PCP Family Medicine Geriatric Medicine
DX: S80.11XA Contusion of right lower leg, initial encounter (principal); W22.8XXA Striking against or struck by other objects, initial encounter; Y93.9 Activity, unspecified; Y92.9 Unspecified place or not applicable; Z79.01 Long term (current) use of anticoagulants; I10 Essential (primary) hypertension; I48.91 Unspecified atrial fibrillation; F32.9 Major depressive disorder, single episode, unspecified; Z90.49 Acquired absence of other specified parts of digestive tract; Z90.710 Acquired absence of both cervix and uterus; Z79.899 Other long term (current) drug therapy
CPT/HCPCS: 73590; 99282

== ENCOUNTER 2018-03-07 22:13 | Observation (INO) | payer OTHER, MEDICAID, SELFPAY ==
[2018-03-07 22:14] VITALS: BP 135/98; PULSE 129; RESP 20; TEMP 36.9; O2SAT 96; BMI 44.3
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
[2018-03-07] MEDS: HYDROcodone Bitartrate/Apap 5/325 Tablet PO (22:52)
[2018-03-07] MEDS: Metoprolol(XL)Succ 100 MG Tablet PO (22:53)
[2018-03-07] MEDS: dilTIAZem 60 MG CAP.SR.12H 120 MG PO (23:04)
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
[2018-03-08] VITALS (14 sets, daily range): BP systolic 98–153; BP diastolic 65–126; PULSE 62–115; RESP 15–20; TEMP 36.7–36.9; O2SAT 92–96; BMI 43.3
[2018-03-08] MEDS: Metoprolol Tartrate 5 MG/5 ML Vial IV (00:15)
--- NOTE | 2018-03-08 01:00 | EKG12_ITS ---
Test Reason : ADM EKG Blood Pressure : / mmHG Vent. Rate : 113 BPM Atrial Rate : 101 BPM P-R Int : 000 ms QRS Dur : 078 ms QT Int : 370 ms P-R-T Axes : 000 -01 107 degrees QTc Int : [address] & T wave abnormality, consider anterior ischemia Abnormal ECG Confirmed by ESTRELLITA FERNANDEZ, SATURNINO ([id number]), clinical editor ABI CRAIG ([id number] on 03/09/2018 2:13:39 PM Referred By: JOSE Confirmed By:SATURNINO HARO MD
[2018-03-08 01:19] LABS: Absolute Lymphocyte Count 2.39 X10^3/ul (0.83-4.51); Absolute Neutrophil Count 9.3 X10^3/uL (2.0-7.7); Basophil# 0.04 X10^3/uL; Basophil% 0.3 % (0-1); Eosinophil# 0.39 X10^3/uL; Hematocrit 40.7 % (37-47); Hemoglobin 13.2 g/dl (12.0-15.0); Lymphocyte # 2.39 X10^3/ul (4.0); Lymphocyte % 18.4 % (19-41); Mean Corp Hgb Conc 32.4 g/gl (32-36); Mean Corpuscular Hgb 29.6 pg (27.0-32.0); Mean Corpuscular Volume 91.3 fL (81-99); Mean Platelet Vol. 10.2 fl (6.2-12.0); Monocyte# 0.86 X10^3/uL; Monocyte% 6.6 % (0-10); Neutrophil # 9.25 X10^3/uL (2.7-7.7); Neutrophil % 71.1 % (47-70); Platelet Count 318 K/mm3 (150-450); RBC Distribution Width CV 15.3 % (11.6-14.6); RBC Distribution Width SD 49.8 fl (35.1-43.9); Red Blood Count 4.46 M/mm3 (4.2-5.4)
[2018-03-08 01:22] LABS: POSITIVE COUNT NO; POSITIVE DIFFERENTIAL NO; POSITIVE MORPHOLOGY NO
[2018-03-08 01:40] LABS: Anion Gap 5 (5-15); BUN 21 mg/dL (7-18); BUN/Creat Ratio 22.4 RATIO (10-20); Calcium,Total 8.9 mg/dL (8.5-10.1); Chloride 106 mmol/L (98-107); Creatinine, Serum 0.94 mg/dL (0.55-1.02); EST Glomerular Filtration Rate 64 mL/min (>60); Est Glom Filt Rate - Afr Amer 78 mL/min (>60); Estimated Creatinine Clearance 61.79 ml/min; Glucose 125 mg/dL (74-106); Potassium 3.1 mmol/L (3.5-5.1); Sodium Level 141 mmol/L (136-145); Thyroid Stim Hormone (TSH) 2.37 uIU/mL (0.358-3.74)
[2018-03-08] MEDS: dilTIAZem 25 MG/5 ML Vial 20 MG IV BOLUS (01:40)
[2018-03-08] MEDS: APIXABAN 5 MG TABLET PO (01:54)
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
[2018-03-08] MEDS: HYDROcodone Bitartrate/Apap 5/325 Tablet PO ×2 (05:33→12:19)
[2018-03-08] MEDS: dilTIAZem 60 MG Tablet PO ×2 (05:33→12:17)
[2018-03-08 05:52] LABS: Cholesterol 154 mg/dL (200); High Density Lipoprotein 35 mg/dL; Thyroid Stim Hormone (TSH) 1.69 uIU/mL (0.358-3.74); Triglycerides 113 mg/dL; Very Low Density Lipoprotein 23 mg/dL (5-40)
[2018-03-08] MEDS: lamoTRIgine 100 MG Tablet PO (10:34)
[2018-03-08] MEDS: FLUoxetine 20 MG Capsule 40 MG PO (10:35)
[2018-03-08] MEDS: Metoprolol Tartrate 50 MG Tablet 75 MG PO (10:35)
[2018-03-08] MEDS: Multivitamins,Therapeutic Tablet 1 TABLET PO (10:36)
[2018-03-08] MEDS: Oxybutynin 5 MG Tablet 10 MG PO (10:36)
[2018-03-08] MEDS: Methocarbamol 500 MG Tablet PO (10:37)
[2018-03-08] MEDS: Furosemide 40 MG Tablet PO (10:37)
[2018-03-08] MEDS: Vitamin E 400 UNITS Capsule PO (10:37)
[2018-03-08] MEDS: Pantoprazole Sodium 40 MG Tablet PO (10:37)
--- NOTE | 2018-03-08 12:43 | CASEMGMT ---
See RN CM Assessment Link. DC PLAN: home. Lovely SANCHEZN RN ACM
--- NOTE | 2018-03-08 14:51 | PCM.DC ---
- Discharge Diagnoses Current Active Problems: Current Active and Chronic Problems (Last Reviewed 01/22/18 @ 10:59 by Dayton Cohen MD) Atrial fibrillation with RVR (Acute) Laceration of head (Acute) You will use the following diet at home:: Cardiac Your food should be the consistency of: Regular Your liquids should be the consistency of: Regular/Thin Discharge Activity: Return to Normal Activity Call your doctor if you observe: Fever of 101 or Higher, Shortness of breath, Chest pain Allergies/Adverse Reactions: Allergies morphine Allergy (Verified 03/07/18 16:53) Itching nifedipine [From Procardia] Adverse Reaction (Verified 03/07/18 16:53) Other elevates bp Medications to take at Discharge Multivitamins,Therapeutic [Multivitamin] 1 tab PO DAILY 05/05/15 Oxybutynin [Ditropan] 10 mg PO BID 05/19/15 Ergocalciferol [Vitamin D] 50,000 unit PO LUDWIG 09/14/15 Vitamin E 400 units PO DAILY 01/01/16 Furosemide 40 mg PO BID 02/05/16 Albuterol Sulfate [Ventolin Hfa] 2 puff INHALATION Q4H PRN 01/20/17 Lorazepam 1 mg PO DAILY PRN 01/20/17 Albuterol Aerosols [Ventolin Aerosols] 2.5 mg INHALATION Q4H PRN PRN vial.neb. 10/22/17 Pantoprazole Sodium [Protonix] 40 mg PO DAILY tab 10/22/17 apixaban 5 mg tablet 5 mg PO BID #180 tab 12/25/17 fluoxetine 40 mg capsule 40 mg PO QDAY 12/29/17 potassium chloride ER 10 mEq tablet,extended release 40 meq PO .COMPLEX 12/29/17 trazodone 150 mg tablet 150 mg PO QHS PRN 12/29/17 diltiazem ER 120 mg capsule,extended release 12 hr 120 mg PO BID #180 cap 01/04/18 Gabapentin [Gralise] 600 mg PO QHS 03/07/18 Hydrocodone/Acetaminophen [[place] 5-325 Tablet] 1 ea PO Q4H PRN PRN #14 tab 03/07/18 Lamotrigine [Lamictal Xr] 100 mg PO DAILY 03/07/18 Methocarbamol [Robaxin] 500 mg PO BID 03/07/18 Metoprolol Tartrate [Lopressor (beta avila)] 75 mg PO BID #60 tab 03/08/18 The following prescriptions were given: Metoprolol Tartrate [Lopressor (beta avila)] 75 mg PO BID #60 tab Primary Care Physician: Osiel Grimaldo Chi, MD [Primary Care Provider] - Within 1 Week Please Follow Up With: Dayton Cohen MD - afib When: 2-4 weeks
--- NOTE | 2018-03-08 14:53 | PCM.DC.SUM ---
Discharge Date and Diagnosis - Problem List Patient Problems: Active and Suspected Problems (Last Reviewed 01/22/18 @ 10:59 by Dayton Cohen MD) Atrial fibrillation with RVR (Acute) Laceration of head (Acute) Date of Admission: 03/08/18 Date of Discharge: 03/08/18 - Primary Discharge Diagnosis Active and Suspected Problems (Last Reviewed 01/22/18 @ 10:59 by Dayton Cohen MD) Atrial fibrillation with RVR (Acute) Laceration of head (Acute) - Secondary Discharge Diagnosis Chronic Problems (Last Reviewed 01/22/18 @ 10:59 by Dayton Cohen MD) Degeneration of lumbosacral intervertebral disc (Chronic) Lumbosacral spondylosis (Chronic) History of left heart catheterization (Chronic ~01/2014) 01/2013, 01/2014 COPD (chronic obstructive pulmonary disease) (Chronic) Fall (on) (from) other stairs and steps, initial encounter (Chronic) Bilateral lower extremity edema (Chronic) Morbid obesity with BMI of 45.0-49.9, adult (Chronic) Non-alcoholic cirrhosis (Chronic) GERD (gastroesophageal reflux disease) (Chronic) Hypertension (Chronic) LUIS (obstructive sleep apnea) (Chronic) Tremor (Chronic) Anxiety (Chronic) Hospital Course and Treatment Imaging Results: Clinical Impression(s) from Imaging Studies Brain CT 03/07/18 22:38 IMPRESSION: No acute intracranial process. Electronically Signed: Christy Pinto MD at 23:31 EDT Tel , Service support , Operations: None Procedures: None Summary of Care Provided: The patient is a 62 year old F presents to ED with mechanical fall. She was, however, found to be in afib with RVR. Her metroprolol was change from succinate to tartrate 75mg BID. Her afib is controlled. She will need to follow with her PCP to have donald removed. Physical exam: Vital Signs Height 1.73 m Weight: 129.3 kg Weight in Pounds 285.1 lbs Pulse Ox 96 Temperature 36.7 C Pulse Rate 74 Respiratory Rate 16 Blood Pressure 125/65 Blood Pressure Position Semi-Fowlers NAD. Afebrile. HRRR +S1, S2. LCTAB.[] Discharge Diet: Low fat/ Low Cholesterol Discharge Activity: Return to Normal Activity Call your doctor if you observe: Fever of 101 or Higher, Shortness of breath, Chest pain Home Medications: Medications to take at Discharge Multivitamins,Therapeutic [Multivitamin] 1 tab PO DAILY 05/05/15 Oxybutynin [Ditropan] 10 mg PO BID 05/19/15 Ergocalciferol [Vitamin D] 50,000 unit PO LUDWIG 09/14/15 Vitamin E 400 units PO DAILY 01/01/16 Furosemide 40 mg PO BID 02/05/16 Albuterol Sulfate [Ventolin Hfa] 2 puff INHALATION Q4H PRN 01/20/17 Lorazepam 1 mg PO DAILY PRN 01/20/17 Albuterol Aerosols [Ventolin Aerosols] 2.5 mg INHALATION Q4H PRN PRN vial.neb. 10/22/17 Pantoprazole Sodium [Protonix] 40 mg PO DAILY tab 10/22/17 apixaban 5 mg tablet 5 mg PO BID #180 tab 12/25/17 fluoxetine 40 mg capsule 40 mg PO QDAY 12/29/17 potassium chloride ER 10 mEq tablet,extended release 40 meq PO .COMPLEX 12/29/17 trazodone 150 mg tablet 150 mg PO QHS PRN 12/29/17 diltiazem ER 120 mg capsule,extended release 12 hr 120 mg PO BID #180 cap 01/04/18 Gabapentin [Gralise] 600 mg PO QHS 03/07/18 Hydrocodone/Acetaminophen [[place] 5-325 Tablet] 1 ea PO Q4H PRN PRN #14 tab 03/07/18 Lamotrigine [Lamictal Xr] 100 mg PO DAILY 03/07/18 Methocarbamol [Robaxin] 500 mg PO BID 03/07/18 Metoprolol Tartrate [Lopressor (beta avila)] 75 mg PO BID #60 tab 03/08/18 Following Prescrptions Were Given to Patient: Metoprolol Tartrate [Lopressor (beta avila)] 75 mg PO BID #60 tab Primary Care Physician: Osiel Grimaldo Chi, MD [Primary Care Provider] - Within 1 Week Please Follow Up With: Dayton Cohen MD - afib When: 2-4 weeks Disposition: Home Minutes spent on discharge:: 25 Patient Condition:: Good Medical Necessity - Tobacco Use Smoking Status: Never smoker Meaningful Use Info Meaningful Use Diagnoses (Choose all that apply): None applicable Code Visit OBSV E&M: 34519 Observation care discharge
--- NOTE | 2018-03-08 14:58 | DS.PCM_ITS ---
Discharge Date and Diagnosis - Problem List Patient Problems: Active and Suspected Problems (Last Reviewed 01/22/18 @ 10:59 by Dayton Cohen MD ) Atrial fibrillation with RVR (Acute) Laceration of head (Acute) Date of Admission: 03/08/18 Date of Discharge: 03/08/18 - Primary Discharge Diagnosis Active and Suspected Problems (Last Reviewed 01/22/18 @ 10:59 by Dayton Cohen MD ) Atrial fibrillation with RVR (Acute) Laceration of head (Acute) - Secondary Discharge Diagnosis Chronic Problems (Last Reviewed 01/22/18 @ 10:59 by Dayton Cohen MD) Degeneration of lumbosacral intervertebral disc (Chronic) Lumbosacral spondylosis (Chronic) History of left heart catheterization (Chronic ~01/2014) 01/2013, 01/2014 COPD (chronic obstructive pulmonary disease) (Chronic) Fall (on) (from) other stairs and steps, initial encounter (Chronic) Bilateral lower extremity edema (Chronic) Morbid obesity with BMI of 45.0-49.9, adult (Chronic) Non-alcoholic cirrhosis (Chronic) GERD (gastroesophageal reflux disease) (Chronic) Hypertension (Chronic) LUIS (obstructive sleep apnea) (Chronic) Tremor (Chronic) Anxiety (Chronic) Hospital Course and Treatment Imaging Results: Clinical Impression(s) from Imaging Studies Brain CT 03/07/18 22:38 IMPRESSION: No acute intracranial process. Electronically Signed: Christy Pinto MD at 23:31 EDT Tel , Service support , Operations: None Procedures: None Summary of Care Provided: The patient is a 62 year old F presents to ED with mechanical fall. She was, however, found to be in afib with RVR. Her metroprolol was change from succinate to tartrate 75mg BID. Her afib is controlled. She will need to follow with her PCP to have donald removed. Physical exam: Vital Signs Height 1.73 m Weight: 129.3 kg Weight in Pounds 285.1 lbs Pulse Ox 96 Temperature 36.7 C Pulse Rate 74 Respiratory Rate 16 Blood Pressure 125/65 Blood Pressure Position Semi-Fowlers NAD. Afebrile. HRRR +S1, S2. LCTAB.[] Discharge Diet: Low fat/ Low Cholesterol Discharge Activity: Return to Normal Activity Call your doctor if you observe: Fever of 101 or Higher, Shortness of breath, Chest pain Home Medications: Medications to take at Discharge Multivitamins,Therapeutic [Multivitamin] 1 tab PO DAILY 05/05/15 Oxybutynin [Ditropan] 10 mg PO BID 05/19/15 Ergocalciferol [Vitamin D] 50,000 unit PO LUDWIG 09/14/15 Vitamin E 400 units PO DAILY 01/01/16 Furosemide 40 mg PO BID 02/05/16 Albuterol Sulfate [Ventolin Hfa] 2 puff INHALATION Q4H PRN 01/20/17 Lorazepam 1 mg PO DAILY PRN 01/20/17 Albuterol Aerosols [Ventolin Aerosols] 2.5 mg INHALATION Q4H PRN PRN vial.neb. 10/22/17 Pantoprazole Sodium [Protonix] 40 mg PO DAILY tab 10/22/17 apixaban 5 mg tablet 5 mg PO BID #180 tab 12/25/17 fluoxetine 40 mg capsule 40 mg PO QDAY 12/29/17 potassium chloride ER 10 mEq tablet,extended release 40 meq PO .COMPLEX trazodone 150 mg tablet 150 mg PO QHS PRN 12/29/17 diltiazem ER 120 mg capsule,extended release 12 hr 120 mg PO BID #180 cap Gabapentin [Gralise] 600 mg PO QHS 03/07/18 Hydrocodone/Acetaminophen [[place] 5-325 Tablet] 1 ea PO Q4H PRN PRN #14 tab 03/07 Lamotrigine [Lamictal Xr] 100 mg PO DAILY 03/07/18 Methocarbamol [Robaxin] 500 mg PO BID 03/07/18 Metoprolol Tartrate [Lopressor (beta avila)] 75 mg PO BID #60 tab 03/08/18 Following Prescrptions Were Given to Patient: Metoprolol Tartrate [Lopressor (beta avila)] 75 mg PO BID #60 tab Primary Care Physician: Osiel Grimaldo Chi, MD [Primary Care Provider] - Within 1 Week Please Follow Up With: Dayton Cohen MD - afib When: 2-4 weeks Disposition: Home Minutes spent on discharge:: 25 Patient Condition:: Good Medical Necessity - Tobacco Use Smoking Status: Never smoker Meaningful Use Info Meaningful Use Diagnoses (Choose all that apply): None applicable Code Visit OBSV E&M: 38518 Observation care discharge
== END 2018-03-08 16:44 | disposition home or self-care (01) ==
LOC: ED 22:50 → PCU 03-08 03:25
PROVIDERS: Admitting Provider Internal Medicine; Emergency Provider Emergency Medicine; Family Provider Family Medicine Geriatric Medicine; PCP Family Medicine Geriatric Medicine
DX: S01.01XA Laceration without foreign body of scalp, initial encounter (principal); Y08.89XA Assault by other specified means, initial encounter; Y93.89 Activity, other specified; Y92.9 Unspecified place or not applicable; M25.531 Pain in right wrist; W19.XXXA Unspecified fall, initial encounter; D68.32 Hemorrhagic disorder due to extrinsic circulating anticoagulants; T45.515A Adverse effect of anticoagulants, initial encounter; S16.1XXA Strain of muscle, fascia and tendon at neck level, initial encounter; I48.91 Unspecified atrial fibrillation; Z79.01 Long term (current) use of anticoagulants; M51.37 Other intervertebral disc degeneration, lumbosacral region; J44.9 Chronic obstructive pulmonary disease, unspecified; Z86.14 Personal history of Methicillin resistant Staphylococcus aureus infection; E66.01 Morbid (severe) obesity due to excess calories; Z68.41 Body mass index [BMI] 40.0-44.9, adult; Z71.3 Dietary counseling and surveillance; K21.9 Gastro-esophageal reflux disease without esophagitis; G47.33 Obstructive sleep apnea (adult) (pediatric); F41.9 Anxiety disorder, unspecified; F32.9 Major depressive disorder, single episode, unspecified; Z79.899 Other long term (current) drug therapy; R25.1 Tremor, unspecified; I11.0 Hypertensive heart disease with heart failure; I50.42 Chronic combined systolic (congestive) and diastolic (congestive) heart failure; K75.81 Nonalcoholic steatohepatitis (NASH)
CPT/HCPCS: 12002; 36415; 70450; 80048; 80061; 84443; 84484; 85025; 87631; 93005; 96374; 96375; 99218; 99285; A4216; G0378

== ENCOUNTER 2018-03-15 09:35 | Day surgery (SDC) | payer OTHER, MEDICAID, SELFPAY ==
[2018-03-15 10:08] VITALS: BP 141/95; PULSE 74; RESP 16; TEMP 36.1; O2SAT 95; BMI 43.0
--- NOTE | 2018-03-15 10:30 | RAD_ITS ---
PROCEDURE: Left L3-S1 facet joint block. DATE OF EXAMINATION: March 15, 2018. INDICATION: Female, 62 years old. Chronic low back pain. FLUOROSCOPY TIME (if supplied): (0:11) minutes/seconds Intraoperative imaging provided for intraoperative L3-S1 left facet joint block. RAD/L/S Spine Min 4 Views IMPRESSION: Intraoperative imaging provided for left L3-S1 facet joint block. Electronically Signed: Dwight Ledbetter MD at 11:02 EDT Tel [phone], Service support ,
[2018-03-15] MEDS: Bupivacaine 0.25% 30 ML Vial (10:43)
[2018-03-15] MEDS: MethylPREDNISolone Acetate 80 MG/ML Vial (10:44)
[2018-03-15 10:50] VITALS: BP 134/63; BP 141/95; PULSE 66; RESP 16; TEMP 36.6; O2SAT 93
[2018-03-15 10:55] VITALS: BP 103/67; BP 141/95; PULSE 65; RESP 16; O2SAT 99
[2018-03-15 11:00] VITALS: BP 141/95; BP 92/48; PULSE 60; RESP 16; O2SAT 95
[2018-03-15 11:05] VITALS: BP 114/75; BP 141/95; PULSE 58; RESP 16; TEMP 35.9; O2SAT 95
--- NOTE | 2018-03-15 11:31 | OP.PCM_ITS ---
Problem List (1) Degeneration of lumbosacral intervertebral disc Status: Chronic (2) Lumbosacral spondylosis Status: Chronic Report of Operation Date of Procedure: 03/15/18 Pre-Operative Diagnosis: Lumbosacral spondylosis, lumbosacral degenerative disc disease, lumbar facet arthropathy Post-Operative Diagnosis: Lumbosacral spondylosis, lumbosacral degenerative disc disease, lumbar facet arthropathy Surgery/Procedure Performed:: Left-sided lumbar facet steroid injection L3, L4, L5, S1 Description of Surgical Findings:: PROCEDURE: Left-sided lumbar facet steroid injection L3, L4, L5, S1 PREOPERATIVE DIAGNOSIS: Lumbosacral spondylosis, lumbosacral degenerative disc disease, and lumbar facet arthropathy POSTOPERATIVE DIAGNOSIS: Lumbosacral spondylosis, lumbosacral degenerative disc disease, and lumbar facet arthropathy ANESTHESIA: MAC COMPLICATIONS: None BLOOD LOSS: Minimal PROCEDURE IN DETAIL: History and physical today was reviewed. Risks and benefits of the procedure were explained. The patient understood, agreed to our procedure, and informed consent was obtained. IV inserted per routine protocol. The patient was taken to the operating room, placed in a prone position with a pillow positioned underneath the abdomen. The left side of her lower back was prepped and draped in a sterile fashion using iodine x3. Under fluoroscopy guidance, on AP view, L3 through S1 vertebral bodies were visualized. Skin and subcutaneous tissues were anesthetized with approximately 5 mL of 1% lidocaine using a 25-gauge regular needle. Under direct visualization with fluoroscopy at approximately 25-degree angle, starting on the left L3, ending on the left S1, passing through the L4-L5 using a 22-gauge 5-inch spinal needle, the needle was advanced via the skin. The tip of the needle was maneuvered and directed towards the superior and medial gutter of the transverse process at the vicinity of the medial branch. Once the tip of the needle was in contact with the bone, the needle pulled approximately 2 mm off the bone. After negative aspiration of blood with CSF and confirmation of AP as well as oblique view, a total of 8 mL of preservative-free 0.25% Marcaine with 80 mg of Depo- Medrol was injection in divided doses between those 4 levels. The needles were then removed intact. The patient experienced no signs or symptoms intrathecal, intravascular injection. The patient experienced no paraesthesia. The procedure was completed without any apparent difficult, any complication. The patient appeared to tolerate well. ASSESSMENT AND PLAN: This is a 62-year-old female with lumbosacral spondylosis, lumbosacral degenerative disc disease, and lumbar facet arthropathy, status post left-sided lumbar facet steroid injection L3 through S1. The patient will continue her current medications. The patient will follow in approximately 2 weeks for possible repeat of the procedure if indicated.
[2018-03-15 11:37] VITALS: BP 141/95
== END 2018-03-15 11:37 | disposition home or self-care (01) ==
LOC: SDC 09:37 → AC 09:38
PROVIDERS: Family Provider Family Medicine Geriatric Medicine; PCP Family Medicine Geriatric Medicine; Visit Provider Anesthesiology Pain Medicine
PROC: 3E0T3BZ Introduction of Anesthetic Agent into Peripheral Nerves and Plexi, Percutaneous Approach (ICD-10-PCS; CPT 64493; principal; 2018-03-15 10:45)
DX: M51.17 Intervertebral disc disorders with radiculopathy, lumbosacral region (principal); M47.27 Other spondylosis with radiculopathy, lumbosacral region; F41.9 Anxiety disorder, unspecified; F32.9 Major depressive disorder, single episode, unspecified; Z79.899 Other long term (current) drug therapy; Z79.01 Long term (current) use of anticoagulants; I48.91 Unspecified atrial fibrillation; I10 Essential (primary) hypertension; M19.90 Unspecified osteoarthritis, unspecified site; Z87.891 Personal history of nicotine dependence; Z79.891 Long term (current) use of opiate analgesic
CPT/HCPCS: 64493; 64494; 64495; 64483; 72110; J7120

== ENCOUNTER 2018-03-20 22:04 | Emergency (ER) | payer OTHER, MEDICAID, SELFPAY ==
[2018-03-20 22:05] VITALS: BP 155/113; PULSE 96; RESP 16; TEMP 36.5; O2SAT 93; BMI 43.2
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
--- NOTE | 2018-03-20 22:30 | ED.DEP ---
ED Disposition - Plan for ED Patient: Disposition: Home or Assisted Living Chief Complaint: Wound Check Referrals: Osiel Grimaldo Chi, MD [Primary Care Provider] - As Needed Additional Instructions: Call and follow-up with the wound care center this week. Clean the wound daily and apply antibiotic ointment. Return if pus, surrounding redness or fever.
== END 2018-03-20 22:43 | disposition home or self-care (01) ==
PROVIDERS: Emergency Provider Emergency Medicine; Family Provider Family Medicine Geriatric Medicine; PCP Family Medicine Geriatric Medicine
DX: S81.801A Unspecified open wound, right lower leg, initial encounter (principal); W51.XXXA Accidental striking against or bumped into by another person, initial encounter; Y93.9 Activity, unspecified; Y92.9 Unspecified place or not applicable; I48.91 Unspecified atrial fibrillation; Z90.49 Acquired absence of other specified parts of digestive tract; Z90.710 Acquired absence of both cervix and uterus; Z79.899 Other long term (current) drug therapy
CPT/HCPCS: 99282

== ENCOUNTER → 2018-03-25 13:50 | Outpatient (CLI) | payer OTHER, MEDICAID, SELFPAY ==
--- NOTE | 2018-03-25 13:53 | RAD_ITS ---
STUDY: X-RAY - RIGHT SHOULDER REASON FOR EXAM: Female, 62 years old. Pain TECHNIQUE: 4 view(s) of the shoulder. COMPARISON: None. FINDINGS: Normal glenohumeral articulation. Normal acromioclavicular joint. Normal acromion. Normal humeral head and visualized proximal humerus. The soft tissue structures are unremarkable. Normal visualized pulmonary apex. RAD/Shoulder min 2 Views IMPRESSION: Normal x-ray examination of the shoulder. Electronically Signed: Dc Chin MD at 7:49 EDT Tel , Service support ,
== END ==
PROVIDERS: Family Provider Family Medicine Geriatric Medicine; PCP Family Medicine Geriatric Medicine; Visit Provider Nurse Practitioner Family
DX: M25.511 Pain in right shoulder (principal)
CPT/HCPCS: 73030

== ENCOUNTER 2018-04-02 08:00 | Outpatient (RCR) | payer OTHER, MEDICAID, SELFPAY ==
[2018-03-26 08:31] VITALS: BP 146/78; PULSE 76; RESP 20; TEMP 36.6; BMI 93.8
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
[2018-04-02 08:15] VITALS: BP 139/62; PULSE 76; RESP 18; TEMP 35.7; BMI 93.8
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
== END 2018-04-08 23:59 ==
LOC: WC 08:00
PROVIDERS: Family Provider Family Medicine Geriatric Medicine; PCP Family Medicine Geriatric Medicine; Visit Provider Nurse Practitioner
DX: S81.811A Laceration without foreign body, right lower leg, initial encounter (principal); V01.00XA Pedestrian on foot injured in collision with pedal cycle in nontraffic accident, initial encounter; Z22.322 Carrier or suspected carrier of Methicillin resistant Staphylococcus aureus; L03.119 Cellulitis of unspecified part of limb; E66.01 Morbid (severe) obesity due to excess calories; Z68.42 Body mass index [BMI] 45.0-49.9, adult; Z71.3 Dietary counseling and surveillance; J44.9 Chronic obstructive pulmonary disease, unspecified; G47.33 Obstructive sleep apnea (adult) (pediatric); K21.9 Gastro-esophageal reflux disease without esophagitis; I10 Essential (primary) hypertension; K74.69 Other cirrhosis of liver; Z79.899 Other long term (current) drug therapy
CPT/HCPCS: 11042; 87070; 87075; 87077; 87186; 87205; 99213; G0463

== ENCOUNTER 2018-04-12 22:56 | Emergency (ER) | payer MEDICAID, SELFPAY ==
--- NOTE | 2018-04-12 00:01 | RAD_ITS ---
STUDY: X-RAY CHEST REASON FOR EXAM: Female, 62 years old. Fall. Pain. TECHNIQUE: PA and lateral views of the chest. COMPARISON: August 15, 2017 FINDINGS: The lungs are clear and expanded. There is no demonstrated pleural abnormality. There is borderline cardiomegaly. Normal mediastinum and guillaume. Normal visualized pulmonary arteries. Normal visualized aortic arch and descending thoracic aorta. There are diffuse degenerative changes of the visualized thoracic spine. Normal visualized ribs, clavicles, and shoulders. There is no demonstrated abnormality of the visualized soft tissue structures of the upper abdomen. RAD/Chest PA and Lateral IMPRESSION: Degenerative changes, as described above. No demonstrated acute cardiopulmonary process. Electronically Signed: Alejo Yanes MD at 13:42 EDT , Service support ,
--- NOTE | 2018-04-12 22:56 | DT_ITS ---
This patient was seen during an EMR downtime April 12, 2018 - April 19, 2018. This patient may have a combination of paper and electronic documentation or all paper documentation. All documentation is viewable within the e-chart portion of [employer] for each patient visit.
--- NOTE | 2018-04-12 23:55 | CT_ITS ---
STUDY: CT BRAIN WITHOUT CONTRAST REASON FOR EXAM: Female, 62 years old. S/P FALL TODAY, BRUISING ON CHIN. No LOC. Pt on Eliquis.Prelim report scanned in RADIATION DOSAGE (If Supplied By Facility): CTDIvol = ( 44.99 ) mGy, DLP = ( 796.11 ) mGycm TECHNIQUE: Transaxial CT imaging of the brain was performed without administration of intravenous contrast material. COMPARISON: 4.18 FINDINGS: Normal soft tissue structures. Normal calvarium. There are calcifications around the carotid artery. These are noted in the cavernous carotid arteries. There is mild cerebral atrophy with widening of the extra-axial spaces and ventricular dilatation. There are areas of decreased attenuation within the white matter tracts of the supratentorial brain, consistent with microvascular disease changes. Normal basal ganglia and thalami. Normal brainstem. There is mild cerebellar atrophy. There is no intracranial hemorrhage. There are no findings of an acute ischemic infarction. Normal visualized paranasal sinuses. CT/Brain/Head without Contrast IMPRESSION: Chronic involutional changes of the brain. There are no acute findings. Electronically Signed: Bhavesh Del Real MD at 17:33 EDT , Service support ,
== END 2018-04-13 01:00 | disposition home or self-care (01) ==
LOC: ED 04-14 16:01
PROVIDERS: Emergency Provider Emergency Medicine; Family Provider Family Medicine Geriatric Medicine; PCP Family Medicine Geriatric Medicine
DX: S09.90XA Unspecified injury of head, initial encounter (principal); W18.30XA Fall on same level, unspecified, initial encounter; Y93.01 Activity, walking, marching and hiking; S20.219D Contusion of unspecified front wall of thorax, subsequent encounter; R22.0 Localized swelling, mass and lump, head; N64.59 Other signs and symptoms in breast; I48.2 Chronic atrial fibrillation; I10 Essential (primary) hypertension; K74.60 Unspecified cirrhosis of liver; F41.9 Anxiety disorder, unspecified; F32.9 Major depressive disorder, single episode, unspecified; Z87.891 Personal history of nicotine dependence; Z79.899 Other long term (current) drug therapy
CPT/HCPCS: 70450; 71046; 93005; 99283

== ENCOUNTER 2018-04-24 01:31 | Inpatient (IN) | payer MEDICAID, SELFPAY ==
[2018-04-24] VITALS (17 sets, daily range): BP systolic 125–165; BP diastolic 67–99; PULSE 64–110; RESP 16–22; TEMP 36.4–37.1; O2SAT 93–100; BMI 44.8; BMI 43.9; BMI 44.0
--- NOTE | 2018-04-24 02:20 | RAD_ITS ---
STUDY: X-RAY CHEST REASON FOR EXAM: Female, 62 years old. Productive cough with chest pain TECHNIQUE: Single AP portable view of the chest. COMPARISON: 04/12/2018 FINDINGS: Patchy airspace infiltration at the right medial lung base, new from prior imaging. There is no demonstrated pleural abnormality. Normal size heart. Normal mediastinum and guillaume. Normal visualized pulmonary arteries. Normal visualized aortic arch and descending thoracic aorta. Normal visualized thoracic spine. Normal visualized ribs, clavicles, and shoulders. There is no demonstrated abnormality of the visualized soft tissue structures of the upper abdomen. RAD/Chest 1 View (Portable) IMPRESSION: Right medial lung base pneumonia. Electronically Signed: Daniel Conde MD at 2:56 EDT Tel , Service support ,
[2018-04-24] MEDS: predniSONE 20 MG Tablet 60 MG PO (02:34)
[2018-04-24] MEDS: Albuterol 2.5 MG/3 ML VIAL.NEB. INHALATION ×3 (02:34→02:38)
[2018-04-24] MEDS: Ipratropium/Albuterol Sulfate 3 ML AMPUL.NEB INHALATION ×5 (02:37→23:00)
[2018-04-24 03:02] LABS: Bacteria 0 SEEN /hpf (None Seen); Mucous, Urine 0 SEEN /hpf (<or=2+); Squamous Epithelial Cells - UA 0 SEEN /hpf (5-10); White Blood Cells 0 SEEN /hpf (0-5)
[2018-04-24 03:03] LABS: Color, Urine Yellow (Yellow); Glucose, Dipstick Normal (Normal); Ketone-Dipstick Negative (Negative); Leukocyte Esterase-Dipstick Negative /ul (Negative); Nitrite-Dipstick Negative (Negative); Occult Blood-Urine 25 /ul (Negative); Protein-Dipstick Negative (Negative); Urine Bilirubin Dipstick Negative (Negative); Urine Clarity Sl. Cloudy (Clear); Urine Urobilinogen Normal (Normal)
[2018-04-24 03:15] LABS: Red Blood Cells-Urine 0-5 SEEN /hpf (0-5)
--- NOTE | 2018-04-24 03:26 | ED.DCSUM_ITS ---
- ER Visit Summary Date of Service: 04/24/18 Chief Complaint: [] Cough History of Present Illness: The patient is a 62 F complaining of cough for the last 2 days gradual onset intermittent wheezing. She has a nonproductive cough. She has had soreness in her chest when she coughs. No home treatment. No history of COPD. Does have atrial fibrillation. She quit tobacco 1998. She is also having some urinary frequency and burning. She thought she might have a UTI. Physical Examination: [] Vital signs reviewed General: Well-nourished well-developed Head: Normocephalic atraumatic Eyes: Pupils equal round and reactive to light extraocular movements intact ENT: TMs clear no hemotympanum no trauma Neck: Nontender full range of motion Cardiovascular: Regular rate and rhythm no murmurs normal S1-S2 Respiratory: This wheezes throughout all lung kathleen bilateral chest nontender Abdomen: Soft nontender nondistended normal bowel sounds no masses Back: Nontender no CVA tenderness Extremities: Nontender active range of motion ?4 extremities no trauma Skin: Normal color no trauma Neuro alert oriented cranial nerves II through XII intact normal strength sensation reflexes Test Results: [] Emergency Department Course and Treatment: [] Chest x-ray shows a right medial lobe pneumonia. Urinalysis shows no infection. Patient given albuterol nebulizer treatment ?3 and Atrovent nebulizer treatment ?1. Her wheezing has subsided. Her pulse ox is 88-90% afterwards. Placed on nasal cannula oxygen. Given oral prednisone. Will be started on antibiotics for her right middle lobe pneumonia. Lab work will be sent and she will be admitted Treatment Plan: [] Disposition: [] Impression: [] Right middle lobe pneumonia with wheezing Hypoxia secondary to #1 This note was generated with [employer] dictation software. It may contain incorrect words, spelling, and punctuation that were not noted in review of the chart prior to signing ED Disposition - Plan for ED Patient: Chief Complaint: Cough Referrals: Osiel Grimaldo Chi, MD [Primary Care Provider] -
[2018-04-24] MEDS: Ceftriaxone 1 GM/50 ML BAG IV (03:57)
[2018-04-24 04:16] LABS: Absolute Lymphocyte Count 1.29 X10^3/ul (0.83-4.51); Absolute Neutrophil Count 6.4 X10^3/uL (2.0-7.7); Basophil# 0.01 X10^3/uL; Basophil% 0.1 % (0-1); Eosinophil# 0.09 X10^3/uL; Eosinophils% 1.1 % (0-5); Hematocrit 36.8 % (37-47); Hemoglobin 11.7 g/dl (12.0-15.0); Lymphocyte # 1.29 X10^3/ul (4.0); Lymphocyte % 15.8 % (19-41); Mean Corp Hgb Conc 31.8 g/gl (32-36); Mean Corpuscular Hgb 29.5 pg (27.0-32.0); Mean Corpuscular Volume 92.7 fL (81-99); Mean Platelet Vol. 10.4 fl (6.2-12.0); Monocyte# 0.34 X10^3/uL; Monocyte% 4.2 % (0-10); Neutrophil # 6.41 X10^3/uL (2.7-7.7); Neutrophil % 78.6 % (47-70); Platelet Count 217 K/mm3 (150-450); RBC Distribution Width CV 14.4 % (11.6-14.6); RBC Distribution Width SD 49.3 fl (35.1-43.9); Red Blood Count 3.97 M/mm3 (4.2-5.4); White Blood Count 8.2 K/mm3 (4.4-11.0)
[2018-04-24 04:22] LABS: POSITIVE COUNT NO; POSITIVE DIFFERENTIAL NO; POSITIVE MORPHOLOGY NO
[2018-04-24 04:28] LABS: Anion Gap 7 (5-15); BUN 13 mg/dL (7-18); BUN/Creat Ratio 18.8 RATIO (10-20); Calcium,Total 8.5 mg/dL (8.5-10.1); Chloride 103 mmol/L (98-107); Creatinine, Serum 0.69 mg/dL (0.55-1.02); EST Glomerular Filtration Rate 91 mL/min (>60); Est Glom Filt Rate - Afr Amer 110 mL/min (>60); Estimated Creatinine Clearance 84.18 ml/min; Glucose 117 mg/dL (74-106); Potassium 3.2 mmol/L (3.5-5.1); Sodium Level 141 mmol/L (136-145)
--- NOTE | 2018-04-24 08:03 | PCM.HP.STD ---
Problem List (1) Hypertension Status: Chronic Qualifiers: Hypertension type: essential hypertension (2) LUIS (obstructive sleep apnea) Status: Chronic (3) MRSA (methicillin resistant staph aureus) culture positive Status: Chronic (4) Morbid obesity with BMI of 45.0-49.9, adult Status: Chronic (5) GERD (gastroesophageal reflux disease) Status: Chronic (6) Anxiety Status: Chronic (7) Atrial fibrillation and flutter Status: Chronic History of Present Illness Date of Admission: 04/24/18 Chief Complaint: Feeling unwell, cough -worse over the last 2 days The patient is a 62 year old F past medical history of obesity, chronic atrial fibrillation on apixaban, anxiety/depression who comes in with complaints of feeling unwell and cough which has been progressive over the last 2 days. Patient states that she fell about 2 weeks ago and hit her chest, and sustained a wound on her right leg for which she is been following up at the wound center. Recently completed a 10-day course of Bactrim. Wound cultures showed MRSA(done on 04/09/2018). Patient's vitals the ED was significant for temperature of 90 8.3F, heart rate of 107, blood pressure of 114/93, respiratory rate of 17, SPO2 of 93% on room air. Investigation showed temperature of 8.2, HP of 11.7, platelet 217, sodium 141, potassium 3.2, chloride 103, bicarb 31, BUN 30, creatinine 0.69. Routine chest x-ray showed right medial lung base pneumonia Past Medical History Past Medical History (Chronic Problems): Chronic Problems (Last Updated 03/29/18 @ 08:55 by Marii Parekh) Atrial fibrillation and flutter (Chronic) Nicotine abuse (Chronic) Palpitations (Chronic) Diabetes mellitus (Chronic) Degeneration of lumbosacral intervertebral disc (Chronic) Lumbosacral spondylosis (Chronic) History of left heart catheterization (Chronic ~01/2014) 01/2013, 01/2014 COPD (chronic obstructive pulmonary disease) (Chronic) Fall (on) (from) other stairs and steps, initial encounter (Chronic) MRSA (methicillin resistant staph aureus) culture positive (Chronic) Bilateral lower extremity edema (Chronic) Morbid obesity with BMI of 45.0-49.9, adult (Chronic) Non-alcoholic cirrhosis (Chronic) GERD (gastroesophageal reflux disease) (Chronic) Hypertension (Chronic) LUIS (obstructive sleep apnea) (Chronic) Tremor (Chronic) Anxiety (Chronic) Medical History: Medical History (Last Updated 03/29/18 @ 08:55 by Marii Parekh) Palpitations (Chronic) R00.2 COPD (chronic obstructive pulmonary disease) (Chronic) J44.9 SIRS (systemic inflammatory response syndrome) (Acute) R65.10 Bilateral lower extremity edema (Chronic) R60.0 Morbid obesity with BMI of 45.0-49.9, adult (Chronic) E66.01, Z68.42 Non-alcoholic cirrhosis (Chronic) GERD (gastroesophageal reflux disease) (Chronic) K21.9 Hypertension (Chronic) I10 LUIS (obstructive sleep apnea) (Chronic) G47.33 Tremor (Chronic) R25.1 Anxiety (Chronic) F41.9 Dizziness and giddiness R42 Edema R60.9 Shortness of breath R06.02 History of carpal tunnel release Z98.890 Blister (nonthermal), left knee, initial encounter (Inactive) S80.222A Chest pain (Inactive) R07.9 Allergies morphine Allergy (Verified 04/24/18 01:31) Itching nifedipine [From Procardia] Adverse Reaction (Verified 04/24/18 01:31) Other elevates bp Home Medications: Ambulatory Orders Medication Instructions Recorded Multivitamins,Therapeutic 1 tab PO DAILY 05/05/15 [Multivitamin] Oxybutynin [Ditropan] 10 mg PO BID 05/19/15 Ergocalciferol [Vitamin D] 50,000 unit PO LUDWIG 09/14/15 Vitamin E 400 units PO DAILY 01/01/16 Furosemide 40 mg PO BID 02/05/16 Albuterol Sulfate [Ventolin Hfa] 2 puff INHALATION Q4H PRN 01/20/17 Lorazepam 1 mg PO DAILY PRN 01/20/17 Albuterol Aerosols [Ventolin 2.5 mg INHALATION Q4H PRN PRN 10/22/17 Aerosols] vial.neb. Pantoprazole Sodium [Protonix] 40 mg PO DAILY tab 10/22/17 apixaban 5 mg tablet 5 mg PO BID #180 tab 12/25/17 fluoxetine 40 mg capsule 40 mg PO QDAY 12/29/17 potassium chloride ER 10 mEq 40 meq PO BID 12/29/17 tablet,extended release trazodone 150 mg tablet 150 mg PO QHS PRN 12/29/17 diltiazem ER 120 mg 120 mg PO BID #180 cap 01/04/18 capsule,extended release 12 hr Lamotrigine [Lamictal Xr] 100 mg PO DAILY 03/07/18 Metoprolol Tartrate [Lopressor 75 mg PO BID #60 tab 03/08/18 (beta avila)] Surgical History: Surgical History (Last Updated 03/31/18 @ 10:24 by John Braswell) History of left heart catheterization (Chronic) Onset Date: ~01/2014 Z98.890 01/2013, 01/2014 History of carpal tunnel release of both wrists Z98.890 History of hysterectomy Z90.710 History of tonsillectomy and adenoidectomy Z98.890 History of total left knee replacement (TKR) Z96.652 History of total right knee replacement (TKR) Z96.651 Hx of cholecystectomy Z90.49 vaginal fistula repair Surgical History: - - T+A, Cholecystectomy, Hysterectomy, Vaginal fistula repairs, L TKR, Bunion/hammertoe RLE, Carpal tunnel BL. 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 Lives: Spouse/ Significant Other Smoking Status: Former smoker Tobacco Use: Non-smoker Alcohol: None Drugs: None - *Family History Maternal Family History: Family History (Last Updated 03/31/18 @ 10:24 by John Braswell) Mother Breast cancer Diabetes Brother Cancer History Items: Diabetes Paternal Family History: Family History (Last Updated 03/31/18 @ 10:24 by John Braswell) Mother Breast cancer Diabetes Brother Cancer History Items: Cancer Review of Systems Constitutional: Denies: Anorexia, Chills, Fever, Night Sweats, Weakness, Weight Change Eyes: Denies: Blurred vision, Cataracts, Conjunctivae Inflammation, Pain, Redness HEENT: Denies: Difficulty Hearing, Difficulty Swallowing, Head Aches, Hearing Changes, Sinus Congestion, Sinus Drainage Cardiovascular: Reports: Chest Pain. Denies: Claudication, Chest Pressure, Heaviness, Light Headedness, Orthopnea, Palpitations, Paroxysmal Noc. Dyspnea Respiratory: Reports: Shortness of Breath. Denies: Cough, Hemoptysis, Pleuritic Pain, Shortness of breath at rest, Sputum production Gastrointestinal: Denies: Abdominal Pain, Constipation, Diarrhea, Nausea, Vomiting Genitourinary: Denies: Dysuria, Frequency, Incontinence, Nocturia Musculoskeletal: Denies: Joint Pain, Joint Tenderness Skin: Denies: Rash, Wounds Neurological: Denies: Numbness, Tingling, Focal weakness Psychiatric: Denies: Anxiety, Depression, Homicidal Ideations, Suicidal Ideations Hematologic/ Lymphatic: Denies: Easy Bruising, Easy Bleeding VTE Information - Inpt Only VTE Present on Admission: No VTE Pharm Prophylaxis ordered?: Yes - Physical Exam General: Alert, Oriented x3, Cooperative, No apparent distress, - - morbidly obese, not pale, not jaundiced HEENT: Atraumatic, PERRLA, EOMI, Normocephalic Oral: Moist Mucosa Neck: Supple Lungs: Normal air movement, Diminished, Rhonchi - Scattered rhonchi Cardiovascular: Regular rate, Regular Rhythm, Normal S1, Normal S2, No murmurs Abdomen: Bowel Sounds Present, Soft, Non Tender, Non-Distended, No Hepato-splenomegaly Extremities: No edema Skin: No rashes, No breakdown Musculoskeletal: No Tenderness to Palpation of Joints or Extremities Lymphatic: No Cervical, Supraclavicular, or Inguinal Adenopathy Neurological: Cranial nerves II-XII grossly intact Psych/Mental Status: Normal Affect, Appropriate Vital Signs Temp Pulse Resp BP Pulse Ox 97.6 F L 103 H 22 H 125/71 H 96 04/24/18 05:01 04/24/18 05:01 04/24/18 05:01 04/24/18 05:01 04/24/18 05:01 Oxygen Flow Rate (L/min) 2 Oxygen Delivery Method Nasal Cannula Weight: 131.224 kg Body Mass Index (BMI) 43.9 Intake and Output for Last 24 Hours 04/22/18 04/23/18 04/24/18 23:59 23:59 23:59 Output Total 100 / 100 Balance -100 / -100 Laboratory Tests Past 24 Hrs 04/24/18 04/24/18 03:55 03:55 WBC 8.2 RBC 3.97 L Hgb 11.7 L Hct 36.8 L MCV 92.7 MCH 29.5 MCHC 31.8 L RDW 14.4 RDW Differential 49.3 H Plt Count 217 MPV 10.4 Immature Gran % (Auto) 0.200 Neut % (Auto) 78.6 H Lymph % (Auto) 15.8 L Pratt % (Auto) 4.2 Eos % (Auto) 1.1 Baso % (Auto) 0.1 Absolute Neuts (auto) 6.4 Absolute Lymphs (auto) 1.29 Total Counted Not Reportable Sodium 141 Potassium 3.2 L Chloride 103 Carbon Dioxide 31.0 Anion Gap 7 BUN 13 Creatinine 0.69 Estim Creat Clear Calc 84.18 Est GFR (MDRD) Af Amer 110 Est GFR (MDRD) Non-Af 91 BUN/Creatinine Ratio 18.8 Glucose 117 H Calcium 8.5 Assessment/Plan All Active Problems (Last Updated 03/29/18 @ 08:55 by Marii Parekh) Cellulitis of lower leg (Acute) Pain in right leg (Acute) Atrial fibrillation with RVR (Acute) Laceration of head (Acute) SIRS (systemic inflammatory response syndrome) (Acute) Non-healing wound of lower extremity (Acute) Infected open wound (Acute) Trauma complication, late effect (Acute) Allergic reaction due to correct medicinal substance properly administered (Acute) Pain in left leg (Acute) CAP (community acquired pneumonia) (Resolved) Influenza B (Resolved) Metabolic alkalosis (Resolved) Pneumonia (Resolved) Syncope and collapse (Resolved) 62-year-old with past medical history of obesity, recent MRSA of the leg, hypertension, chronic atrial fibrillation on on chronic anticoagulation, and fall about 2 weeks ago comes in with complaints of feeling unwell and progressive cough with shortness of breath 1. Right community-acquired pneumonia, likely secondary to gram-positive organisms, no signs of sepsis, patient was given IV ceftriaxone and azithromycin. Plan: We will continue with IV ceftriaxone and azithromycin, urine for Legionella and streptococcal antigen, breathing treatments, follow-up on blood work in a.m. 2. Hypertension, controlled, continue home medication. 3. Chronic atrial fibrillation, rate controlled, continue on Cardizem and apixaban. 4. Hypokalemia, replace, recheck in a.m. 5. Morbid obesity, BMI is 44, diet and exercise recommended. 6. Anxiety/depression, continue on trazodone, lorazepam. 7. DVT prophylaxis -on apixaban. Code Visit Inpatient E&M: 46534 Init Hosp L3
[2018-04-24] MEDS: 0.9% Normal Saline 1,000 ML 75 ML IV ×2 (09:55→23:06)
[2018-04-24] MEDS: Metoprolol Tartrate 50 MG Tablet 75 MG PO ×2 (09:56→22:55)
[2018-04-24 09:57] LABS: Hemoglobin A1c 5.7 % (4.2-6.3)
[2018-04-24] MEDS: guaiFENesin 1,200 MG Tablet 1200 MG PO ×2 (10:05→22:55)
[2018-04-24] MEDS: APIXABAN 5 MG TABLET PO ×2 (10:05→23:07)
[2018-04-24] MEDS: Acetaminophen 325 MG Tablet 650 MG PO ×2 (10:06→16:02)
[2018-04-24] MEDS: dilTIAZem 60 MG CAP.SR.12H 120 MG PO ×2 (11:20→22:56)
[2018-04-24] MEDS: FLUoxetine 20 MG Capsule 40 MG PO (11:20)
[2018-04-24] MEDS: Vitamin E 400 UNITS Capsule PO (11:20)
[2018-04-24] MEDS: Pantoprazole Sodium 40 MG Tablet PO (11:20)
--- NOTE | 2018-04-24 15:55 | CASEMGMT ---
CM INITIAL ASSESSMENT: Home: Patient states she lives in a one story home with her brother. There are two steps into the home, without a rail. HHS/Aides: Denies currently having HHS. She has used [facility] in the past and would prefer to use them again if indicated. DME: Denies using DME. She has a cane, but states she doesn't know how to use it. I informed patient that if she would like PT to review proper usage with her she may ask. She states she may do this. Home Oxygen: Denies Pharmacy: [facility] in [place] Advance Directives: Denies, but would like copies to complete. Advance directive documents provided to the patient to complete as she is able. Patient denies questions. PCP: Dr. Grimaldo Specialists: Dr. Harris (pain management), Dr. DARLENE Hancock (GI at [facility]), Dr. Diop (for my liver at [facility]) DC Plan: Home, no needs anticipated. CM will continue to follow for safe and effective discharge planning.
[2018-04-24] MEDS: Oxybutynin 5 MG Tablet 10 MG PO (17:23)
[2018-04-24] MEDS: lamoTRIgine 100 MG Tablet PO (22:55)
[2018-04-24] MEDS: traZODone 50 MG Tablet 150 MG PO (22:56)
[2018-04-24] MEDS: LORazepam 1 MG Tablet PO (22:56)
[2018-04-24] MEDS: oxyCODONE 5 MG Tablet PO (22:56)
[2018-04-25] VITALS (18 sets, daily range): BP systolic 112–126; BP diastolic 62–83; PULSE 63–98; RESP 14–20; TEMP 36.6–37.2; O2SAT 91–97
[2018-04-25] MEDS: Ipratropium/Albuterol Sulfate 3 ML AMPUL.NEB INHALATION ×6 (03:04→23:23)
[2018-04-25 06:50] LABS: Absolute Lymphocyte Count 1.28 X10^3/ul (0.83-4.51); Absolute Neutrophil Count 4.4 X10^3/uL (2.0-7.7); Basophil# 0.02 X10^3/uL; Basophil% 0.3 % (0-1); Eosinophil# 0.09 X10^3/uL; Eosinophils% 1.4 % (0-5); Hemoglobin 10.6 g/dl (12.0-15.0); Lymphocyte # 1.28 X10^3/ul (4.0); Lymphocyte % 19.7 % (19-41); Mean Corp Hgb Conc 31.2 g/gl (32-36); Mean Corpuscular Hgb 29.1 pg (27.0-32.0); Mean Corpuscular Volume 93.4 fL (81-99); Mean Platelet Vol. 10.8 fl (6.2-12.0); Monocyte# 0.68 X10^3/uL; Monocyte% 10.5 % (0-10); Neutrophil # 4.41 X10^3/uL (2.7-7.7); Neutrophil % 67.9 % (47-70); Platelet Count 228 K/mm3 (150-450); RBC Distribution Width CV 14.6 % (11.6-14.6); RBC Distribution Width SD 50.1 fl (35.1-43.9); Red Blood Count 3.64 M/mm3 (4.2-5.4); White Blood Count 6.5 K/mm3 (4.4-11.0)
[2018-04-25 07:03] LABS: POSITIVE COUNT NO; POSITIVE DIFFERENTIAL NO; POSITIVE MORPHOLOGY NO
[2018-04-25 07:08] LABS: Anion Gap 8 (5-15); BUN 13 mg/dL (7-18); BUN/Creat Ratio 18.7 RATIO (10-20); Calcium,Total 8.4 mg/dL (8.5-10.1); Chloride 111 mmol/L (98-107); EST Glomerular Filtration Rate 90 mL/min (>60); Est Glom Filt Rate - Afr Amer 109 mL/min (>60); Estimated Creatinine Clearance 82.98 ml/min; Glucose 105 mg/dL (74-106); Potassium 3.5 mmol/L (3.5-5.1); Sodium Level 147 mmol/L (136-145)
[2018-04-25] MEDS: Multivitamins,Therapeutic Tablet 1 TABLET PO (08:38)
[2018-04-25] MEDS: dilTIAZem 60 MG CAP.SR.12H 120 MG PO ×2 (08:38→21:56)
[2018-04-25] MEDS: Metoprolol Tartrate 50 MG Tablet 75 MG PO ×2 (08:38→21:56)
[2018-04-25] MEDS: FLUoxetine 20 MG Capsule 40 MG PO (08:39)
[2018-04-25] MEDS: APIXABAN 5 MG TABLET PO ×2 (08:39→21:56)
[2018-04-25] MEDS: Vitamin E 400 UNITS Capsule PO (08:39)
[2018-04-25] MEDS: guaiFENesin 1,200 MG Tablet 1200 MG PO ×2 (08:39→21:56)
[2018-04-25] MEDS: Oxybutynin 5 MG Tablet 10 MG PO ×2 (08:39→16:17)
[2018-04-25] MEDS: Pantoprazole Sodium 40 MG Tablet PO (08:39)
[2018-04-25] MEDS: Ceftriaxone 1 GM/50 ML BAG IV (08:40)
[2018-04-25] MEDS: Acetaminophen 325 MG Tablet 650 MG PO ×2 (09:02→16:16)
--- NOTE | 2018-04-25 10:00 | NURSING ---
in to talk with pt at her request, discussed previous shift care including frequency of rounding. pt verbalized upset as she states she was made to feel like a burden. Discussed time of when staff assisted her, timing of when will her family was here and when she was on the phone. emotional support given. Encouraged patient to discuss any further issues with the charge nurse. Denies all further needs. call light within reach.
[2018-04-25] MEDS: 0.45% Normal Saline 1,000 ML 75 ML IV (10:33)
[2018-04-25] MEDS: Collagenase 30gm Tube 1 APPLIC TOPICAL (10:33)
--- NOTE | 2018-04-25 14:14 | PCM.PN.HOSP ---
Subjective: Patient was seen and examined. She feels much better. Slightly weak. Been off oxygen. Ambulates in the room. Cough is present but dry. Denies any fever or chills. Patient is reluctant to be discharged today. Says she stays alone and prefers being discharged tomorrow. Objective: Physical Exam General: Alert, Oriented x3, Cooperative, No apparent distress, - - morbidly obese, not pale, not jaundiced HEENT: Atraumatic, PERRLA, EOMI, Normocephalic Oral: Moist Mucosa Neck: Supple Lungs: Normal air movement, Diminished, Rhonchi - Scattered rhonchi Cardiovascular: Regular rate, Regular Rhythm, Normal S1, Normal S2, No murmurs Abdomen: Bowel Sounds Present, Soft, Non Tender, Non-Distended, No Hepato-splenomegaly Extremities: No edema Skin: No rashes, No breakdown Musculoskeletal: No Tenderness to Palpation of Joints or Extremities Lymphatic: No Cervical, Supraclavicular, or Inguinal Adenopathy Neurological: Cranial nerves II-XII grossly intact Psych/Mental Status: Normal Affect, Appropriate Vitals/I&O's: Vital Signs Temp Pulse Resp BP Pulse Ox 98.2 F 70 16 118/82 H 94 04/25/18 08:33 04/25/18 12:05 04/25/18 10:48 04/25/18 08:38 04/25/18 08:33 Oxygen Flow Rate (L/min) 2 Oxygen Delivery Method Room Air Weight: 131.224 kg Intake and Output for Last 24 Hours 04/23/18 04/24/18 04/25/18 23:59 23:59 23:59 Intake Total 1564 / 1564 2978 / 2978 Balance 1564 / 1464 2978 / 2978 Laboratory Results 04/25/18 06:00: WBC 6.5, RBC 3.64 L, Hgb 10.6 L, Hct 34.0 L, MCV 93.4, MCH 29.1, MCHC 31.2 L, RDW 14.6, RDW Differential 50.1 H, Plt Count 228, MPV 10.8, Immature Gran % (Auto) 0.200, Neut % (Auto) 67.9, Lymph % (Auto) 19.7, Esmeralda % (Auto) 10.5 H, Eos % (Auto) 1.4, Baso % (Auto) 0.3, Absolute Neuts (auto) 4.4, Absolute Lymphs (auto) 1.28, Total Counted Not Reportable 04/25/18 06:00: Sodium 147 H, Potassium 3.5, Chloride 111 H, Carbon Dioxide 28.0, Anion Gap 8, BUN 13, Creatinine 0.70, Estim Creat Clear Calc 82.98, Est GFR (MDRD) Af Amer 109, Est GFR (MDRD) Non-Af 90, BUN/Creatinine Ratio 18.7, Glucose 105, Calcium 8.4 L Current Medications Acetaminophen (Tylenol) 650 mg PO Q6H PRN PRN PRN Reason: PAIN/FEVER Last Admin: 04/25/18 09:02 Dose: 650 mg Albuterol/Ipratropium (Duoneb) 3 ml INHALATION Q4H.RT [facility] Last Admin: 04/25/18 10:48 Dose: 3 ml Apixaban (Eliquis) 5 mg PO BID [facility] Last Admin: 04/25/18 08:39 Dose: 5 mg Bisacodyl (Dulcolax) 5 mg PO DAILY PRN PRN PRN Reason: Constipation Collagenase (Santyl) 1 applic TOPICAL DAILY [facility] PRN Reason: Protocol Last Admin: 04/25/18 10:33 Dose: 1 applicatio Diltiazem HCl (Cardizem Sr) 120 mg PO BID [facility] Last Admin: 04/25/18 08:38 Dose: 120 mg Ergocalciferol (Vitamin D) 50,000 unit PO Leal@1000 [facility] Last Admin: 04/25/18 08:40 Dose: 50,000 unit Fluoxetine HCl (Prozac) 40 mg PO DAILY [facility] Last Admin: 04/25/18 08:39 Dose: 40 mg Guaifenesin (Mucinex) 1,200 mg PO BID [facility] Last Admin: 04/25/18 08:39 Dose: 1,200 mg Azithromycin 500 mg/ Dextrose 255 mls @ 250 mls/hr IV Q24 [facility] Stop: 04/27/18 11:02 Last Admin: 04/25/18 10:33 Dose: 250 mls/hr Ceftriaxone Sodium (Rocephin) 1 gm in 50 mls @ 100 mls/hr IV Q24 [facility] Last Admin: 04/25/18 08:40 Dose: 100 mls/hr Sodium Chloride () 1,000 mls @ 75 mls/hr IV .[id number] [facility] Stop: 04/25/18 22:14 Last Admin: 04/25/18 10:33 Dose: 75 mls/hr Lamotrigine (Lamictal) 100 mg PO QHS [facility] Last Admin: 04/24/18 22:55 Dose: 100 mg Lorazepam (Ativan) 1 mg PO DAILY PRN PRN Reason: ANXIETY Last Admin: 04/24/18 22:56 Dose: 1 mg Magnesium Hydroxide (Milk Of Magnesia) 30 ml PO DAILY PRN PRN PRN Reason: Constipation Metoprolol Tartrate (Lopressor (Beta Danielle)) 75 mg PO BID [facility] Last Admin: 04/25/18 08:38 Dose: 75 mg [facility] Last Admin: 04/25/18 08:38 Dose: 1 tablet Nutritional Formula (Lactose Free) (Ensure Enlive) 120 ml PO 4X/DAY [facility] Last Admin: 04/25/18 13:20 Dose: 120 ml Ondansetron HCl (Zofran) 4 mg IV Q8H PRN PRN PRN Reason: NAUSEA Oxy[facility] Last Admin: 04/25/18 08:39 Dose: 10 mg Oxycodone HCl (Oxyir) 5 mg PO Q6H PRN PRN PRN Reason: SEVERE PAIN (6-10/10) Last Admin: 04/24/18 22:56 Dose: 5 mg Pantoprazole Sodium (Protonix) 40 mg PO DAILY [facility] Last Admin: 04/25/18 08:39 Dose: 40 mg Psyllium Hydrophilic Mucilloid (Metamucil) 1 packet PO DAILY PRN PRN PRN Reason: CONSTIPATION Sodium Chloride () 5 - 30 ml IV UD PRN PRN Reason: SALINE FLUSH Trazodone HCl (Desyrel) 150 mg PO QHS PRN PRN Reason: SLEEP Last Admin: 04/24/18 22:56 Dose: 150 mg Vitamin E (Vitamin E) 400 units PO DAILY [facility] Last Admin: 04/25/18 08:39 Dose: 400 units Medical Necessity - Tobacco Use Smoking Status: Former smoker Tobacco Use: Non-smoker Assessment/Plan All Active Problems (Last Updated 03/29/18 @ 08:55 by Marii Parekh) Cellulitis of lower leg (Acute) Pain in right leg (Acute) Atrial fibrillation with RVR (Acute) Laceration of head (Acute) SIRS (systemic inflammatory response syndrome) (Acute) Non-healing wound of lower extremity (Acute) Infected open wound (Acute) Trauma complication, late effect (Acute) Allergic reaction due to correct medicinal substance properly administered (Acute) Pain in left leg (Acute) CAP (community acquired pneumonia) (Resolved) Influenza B (Resolved) Metabolic alkalosis (Resolved) Pneumonia (Resolved) Syncope and collapse (Resolved) 62-year-old with past medical history of obesity, recent MRSA of the leg, hypertension, chronic atrial fibrillation on on chronic anticoagulation, and fall about 2 weeks ago comes in with complaints of feeling unwell and progressive cough with shortness of breath 1. Right community-acquired pneumonia, likely secondary to gram-positive organisms, no signs of sepsis, urine streptococcal and Legionella antigen negative, no leukocytosis, blood and sputum cultures are pending, will continue on IV ceftriaxone 2. Hypernatremia secondary to dehydration, patient encouraged to drink fluids, will start on IV half-normal saline ?1 L, repeat BMP in a.m. 3. Hypertension, controlled, continue home medication. 3. Chronic atrial fibrillation, rate controlled, continue on Cardizem and apixaban. 4. Hypokalemia, resolved, BMP in a.m. 5. Morbid obesity, BMI is 44, diet and exercise recommended. 6. Anxiety/depression, continue on trazodone, lorazepam. 7. Chronic right leg wound, history of recent falls, history of MRSA of the leg, no signs of cellulitis seen, follows up with wound clinic, continue with current wound instructions, wound nurse consulted in am. 8. DVT prophylaxis -on apixaban. 9. Disposition: DC home in a.m. Code Visit Inpatient E&M: 44715 Subs Hosp L2
--- NOTE | 2018-04-25 14:23 | PN_ITS ---
Subjective: Patient was seen and examined. She feels much better. Slightly weak. Been off oxygen. Ambulates in the room. Cough is present but dry. Denies any fever or chills. Patient is reluctant to be discharged today. Says she stays alone and prefers being discharged tomorrow. Objective: Physical Exam General: Alert, Oriented x3, Cooperative, No apparent distress, - - morbidly obese, not pale, not jaundiced HEENT: Atraumatic, PERRLA, EOMI, Normocephalic Oral: Moist Mucosa Neck: Supple Lungs: Normal air movement, Diminished, Rhonchi - Scattered rhonchi Cardiovascular: Regular rate, Regular Rhythm, Normal S1, Normal S2, No murmurs Abdomen: Bowel Sounds Present, Soft, Non Tender, Non-Distended, No Hepato- splenomegaly Extremities: No edema Skin: No rashes, No breakdown Musculoskeletal: No Tenderness to Palpation of Joints or Extremities Lymphatic: No Cervical, Supraclavicular, or Inguinal Adenopathy Neurological: Cranial nerves II-XII grossly intact Psych/Mental Status: Normal Affect, Appropriate Vitals/I&O's: Vital Signs Temp Pulse Resp BP Pulse Ox 98.2 F 70 16 118/82 H 94 04/25/18 08:33 04/25/18 12:05 04/25/18 10:48 04/25/18 08:38 04/25/18 08:33 Oxygen Flow Rate (L/min) 2 Oxygen Delivery Method Room Air Weight: 131.224 kg Intake and Output for Last 24 Hours 04/23/18 04/24/18 04/25/18 23:59 23:59 23:59 Intake Total 1564 / 1564 2978 / 2978 Balance 1564 / 1464 2978 / 2978 Laboratory Results 04/25/18 06:00: WBC 6.5, RBC 3.64 L, Hgb 10.6 L, Hct 34.0 L, MCV 93.4, MCH 29.1 , MCHC 31.2 L, RDW 14.6, RDW Differential 50.1 H, Plt Count 228, MPV 10.8, Immature Gran % (Auto) 0.200, Neut % (Auto) 67.9, Lymph % (Auto) 19.7, [place] % ( Auto) 10.5 H, Eos % (Auto) 1.4, Baso % (Auto) 0.3, Absolute Neuts (auto) 4.4, Absolute Lymphs (auto) 1.28, Total Counted Not Reportable 04/25/18 06:00: Sodium 147 H, Potassium 3.5, Chloride 111 H, Carbon Dioxide 28.0 , Anion Gap 8, BUN 13, Creatinine 0.70, Estim Creat Clear Calc 82.98, Est GFR ( MDRD) Af Amer 109, Est GFR (MDRD) Non-Af 90, BUN/Creatinine Ratio 18.7, Glucose 105, Calcium 8.4 L Current Medications Acetaminophen (Tylenol) 650 mg PO Q6H PRN PRN PRN Reason: PAIN/FEVER Last Admin: 04/25/18 09:02 Dose: 650 mg Albuterol/Ipratropium (Duoneb) 3 ml INHALATION Q4H.RT [facility] Last Admin: 04/25/18 10:48 Dose: 3 ml Apixaban (Eliquis) 5 mg PO BID [facility] Last Admin: 04/25/18 08:39 Dose: 5 mg Bisacodyl (Dulcolax) 5 mg PO DAILY PRN PRN PRN Reason: Constipation Collagenase (Santyl) 1 applic TOPICAL DAILY [facility] PRN Reason: Protocol Last Admin: 04/25/18 10:33 Dose: 1 applicatio Diltiazem HCl (Cardizem Sr) 120 mg PO BID [facility] Last Admin: 04/25/18 08:38 Dose: 120 mg Ergocalciferol (Vitamin D) 50,000 unit PO Leal@1000 [facility] Last Admin: 04/25/18 08:40 Dose: 50,000 unit Fluoxetine HCl (Prozac) 40 mg PO DAILY [facility] Last Admin: 04/25/18 08:39 Dose: 40 mg Guaifenesin (Mucinex) 1,200 mg PO BID [facility] Last Admin: 04/25/18 08:39 Dose: 1,200 mg Azithromycin 500 mg/ Dextrose 255 mls @ 250 mls/hr IV Q24 [facility] Stop: 04/27/18 11:02 Last Admin: 04/25/18 10:33 Dose: 250 mls/hr Ceftriaxone Sodium (Rocephin) 1 gm in 50 mls @ 100 mls/hr IV Q24 [facility] Last Admin: 04/25/18 08:40 Dose: 100 mls/hr Sodium Chloride () 1,000 mls @ 75 mls/hr IV .[id number] [facility] Stop: 04/25/18 22:14 Last Admin: 04/25/18 10:33 Dose: 75 mls/hr Lamotrigine (Lamictal) 100 mg PO QHS [facility] Last Admin: 04/24/18 22:55 Dose: 100 mg Lorazepam (Ativan) 1 mg PO DAILY PRN PRN Reason: ANXIETY Last Admin: 04/24/18 22:56 Dose: 1 mg Magnesium Hydroxide (Milk Of Magnesia) 30 ml PO DAILY PRN PRN PRN Reason: Constipation Metoprolol Tartrate (Lopressor (Beta Danielle)) 75 mg PO BID [facility] Last Admin: 04/25/18 08:38 Dose: 75 mg [facility] Admin: 04/25/18 08:38 Dose: 1 tablet Nutritional Formula (Lactose Free) (Ensure Enlive) 120 ml PO 4X/DAY [facility] Last Admin: 04/25/18 13:20 Dose: 120 ml Ondansetron HCl (Zofran) 4 mg IV Q8H PRN PRN PRN Reason: NAUSEA [facility] Last Admin: 04/25/18 08:39 Dose: 10 mg Oxycodone HCl (Oxyir) 5 mg PO Q6H PRN PRN PRN Reason: SEVERE PAIN (6-10/10) Last Admin: 04/24/18 22:56 Dose: 5 mg Pantoprazole Sodium (Protonix) 40 mg PO DAILY [facility] Last Admin: 04/25/18 08:39 Dose: 40 mg Psyllium Hydrophilic Mucilloid (Metamucil) 1 packet PO DAILY PRN PRN PRN Reason: CONSTIPATION Sodium Chloride () 5 - 30 ml IV UD PRN PRN Reason: SALINE FLUSH Trazodone HCl (Desyrel) 150 mg PO QHS PRN PRN Reason: SLEEP Last Admin: 04/24/18 22:56 Dose: 150 mg Vitamin E (Vitamin E) 400 units PO DAILY [facility] Last Admin: 04/25/18 08:39 Dose: 400 units Medical Necessity - Tobacco Use Smoking Status: Former smoker Tobacco Use: Non-smoker Assessment/Plan All Active Problems (Last Updated 03/29/18 @ 08:55 by Marii Parekh) Cellulitis of lower leg (Acute) Pain in right leg (Acute) Atrial fibrillation with RVR (Acute) Laceration of head (Acute) SIRS (systemic inflammatory response syndrome) (Acute) Non-healing wound of lower extremity (Acute) Infected open wound (Acute) Trauma complication, late effect (Acute) Allergic reaction due to correct medicinal substance properly administered ( Acute) Pain in left leg (Acute) CAP (community acquired pneumonia) (Resolved) Influenza B (Resolved) Metabolic alkalosis (Resolved) Pneumonia (Resolved) Syncope and collapse (Resolved) 62-year-old with past medical history of obesity, recent MRSA of the leg, hypertension, chronic atrial fibrillation on on chronic anticoagulation, and fall about 2 weeks ago comes in with complaints of feeling unwell and progressive cough with shortness of breath 1. Right community-acquired pneumonia, likely secondary to gram-positive organisms, no signs of sepsis, urine streptococcal and Legionella antigen negative, no leukocytosis, blood and sputum cultures are pending, will continue on IV ceftriaxone 2. Hypernatremia secondary to dehydration, patient encouraged to drink fluids, will start on IV half-normal saline ?1 L, repeat BMP in a.m. 3. Hypertension, controlled, continue home medication. 3. Chronic atrial fibrillation, rate controlled, continue on Cardizem and apixaban. 4. Hypokalemia, resolved, BMP in a.m. 5. Morbid obesity, BMI is 44, diet and exercise recommended. 6. Anxiety/depression, continue on trazodone, lorazepam. 7. Chronic right leg wound, history of recent falls, history of MRSA of the leg , no signs of cellulitis seen, follows up with wound clinic, continue with current wound instructions, wound nurse consulted in am. 8. DVT prophylaxis -on apixaban. 9. Disposition: DC home in a.m. Code Visit Inpatient E&M: 30985 Subs Hosp L2
[2018-04-25] MEDS: oxyCODONE 5 MG Tablet PO (20:34)
[2018-04-25] MEDS: predniSONE 20 MG Tablet PO (21:56)
[2018-04-25] MEDS: Benzonatate 100 MG Capsule PO (21:56)
[2018-04-25] MEDS: lamoTRIgine 100 MG Tablet PO (21:56)
[2018-04-26] VITALS (12 sets, daily range): BP systolic 126–145; BP diastolic 75–84; PULSE 65–118; RESP 18–20; TEMP 36.4–37.3; O2SAT 92–98
[2018-04-26] MEDS: oxyCODONE 5 MG Tablet PO ×3 (02:34→20:07)
[2018-04-26 06:21] LABS: Absolute Lymphocyte Count 0.77 X10^3/ul (0.83-4.51); Absolute Neutrophil Count 6.5 X10^3/uL (2.0-7.7); Basophil# 0.03 X10^3/uL; Basophil% 0.4 % (0-1); Eosinophil# 0.07 X10^3/uL; Eosinophils% 0.9 % (0-5); Hematocrit 36.1 % (37-47); Hemoglobin 11.2 g/dl (12.0-15.0); Lymphocyte # 0.77 X10^3/ul (4.0); Lymphocyte % 9.9 % (19-41); Mean Corpuscular Hgb 29.9 pg (27.0-32.0); Mean Corpuscular Volume 96.5 fL (81-99); Mean Platelet Vol. 11.1 fl (6.2-12.0); Monocyte# 0.32 X10^3/uL; Monocyte% 4.1 % (0-10); Neutrophil # 6.53 X10^3/uL (2.7-7.7); Neutrophil % 84.2 % (47-70); Platelet Count 247 K/mm3 (150-450); RBC Distribution Width CV 14.8 % (11.6-14.6); RBC Distribution Width SD 49.9 fl (35.1-43.9); Red Blood Count 3.74 M/mm3 (4.2-5.4); White Blood Count 7.8 K/mm3 (4.4-11.0)
[2018-04-26 06:25] LABS: POSITIVE COUNT NO; POSITIVE DIFFERENTIAL NO; POSITIVE MORPHOLOGY NO
[2018-04-26 06:28] LABS: Anion Gap 6 (5-15); BUN 15 mg/dL (7-18); BUN/Creat Ratio 17.4 RATIO (10-20); Calcium,Total 8.5 mg/dL (8.5-10.1); Chloride 106 mmol/L (98-107); Creatinine, Serum 0.86 mg/dL (0.55-1.02); EST Glomerular Filtration Rate 71 mL/min (>60); Est Glom Filt Rate - Afr Amer 86 mL/min (>60); Estimated Creatinine Clearance 67.54 ml/min; Glucose 132 mg/dL (74-106); Potassium 4.6 mmol/L (3.5-5.1); Sodium Level 143 mmol/L (136-145)
[2018-04-26] MEDS: Ipratropium/Albuterol Sulfate 3 ML AMPUL.NEB INHALATION ×5 (06:53→23:47)
[2018-04-26] MEDS: Multivitamins,Therapeutic Tablet 1 TABLET PO (08:45)
[2018-04-26] MEDS: APIXABAN 5 MG TABLET PO (08:45)
[2018-04-26] MEDS: Vitamin E 400 UNITS Capsule PO (08:45)
[2018-04-26] MEDS: predniSONE 20 MG Tablet PO (08:45)
[2018-04-26] MEDS: FLUoxetine 20 MG Capsule 40 MG PO (08:45)
[2018-04-26] MEDS: guaiFENesin 1,200 MG Tablet 1200 MG PO (08:45)
[2018-04-26] MEDS: Metoprolol Tartrate 50 MG Tablet 75 MG PO (08:45)
[2018-04-26] MEDS: dilTIAZem 60 MG CAP.SR.12H 120 MG PO (08:45)
[2018-04-26] MEDS: Pantoprazole Sodium 40 MG Tablet PO (08:45)
[2018-04-26] MEDS: Oxybutynin 5 MG Tablet 10 MG PO ×2 (08:46→17:01)
[2018-04-26] MEDS: Ceftriaxone 1 GM/50 ML BAG IV (10:54)
[2018-04-26] MEDS: Collagenase 30gm Tube 1 APPLIC TOPICAL (12:39)
--- NOTE | 2018-04-26 13:13 | PN_ITS ---
Subjective: The patient is a 62-year-old female with a past medical history of obesity, chronic atrial fibrillation, anxiety/depression, LUIS and chronic atrial fibrillation and flutter who presented to the emergency department at [facility] on 04/24/2018 complaining of cough over the preceding 2 days. He had recently finished a 10 day course of Bactrim for cellulitis of the lower extremity secondary to MRSA. Straight in the emergency room showed a right basilar pneumonia. White blood cell count was normal at 8.2 and the percent neutrophils were 78.6%. Legionella and streptococcal antigens in the urine were negative. Blood cultures had no growth after 48 hours. Luminary on the sputum culture appears to be normal respiratory andry. She has been afebrile throughout her hospital admission. White blood cell count has been normal throughout her admission. Pulse ox on room air today is 92%. No respiratory panel was sent. She is c/o chest pain with coughing and also still has a dry cough which has not improved since admission. She has been a smoker in the past but quit in the . She denies any history of asthma. She does complain of itchy watery eyes and a itchy nose. She has had some postnasal drip. - Physical Exam General: Alert, Oriented x3, Cooperative, No apparent distress, Well developed, Well nourished, - - frequent dry cough HEENT: Atraumatic, PERRLA, EOMI Oral: Moist Mucosa, No Gingival or Mucosal Lesions/ Ulcerations Lungs: Wheezes, - - coarse crackles in the left base....R base has no crackles Cardiovascular: Regular rate, Regular Rhythm, Normal S1, Normal S2, No Gallop Abdomen: Bowel Sounds Present, Soft, Non Tender, Non-Distended, Obese Extremities: No clubbing, No cyanosis, No edema Psych/Mental Status: Normal Affect, Appropriate Vital Signs Temp Pulse Resp BP Pulse Ox 98.8 F 80 20 H 141/75 H 92 04/26/18 08:35 04/26/18 10:56 04/26/18 10:56 04/26/18 08:35 04/26/18 08:58 Oxygen Flow Rate (L/min) 2 Oxygen Delivery Method Room Air Weight: 289 lb 4.79 oz Intake and Output for Last 24 Hours 04/24/18 04/25/18 04/26/18 23:59 23:59 23:59 Intake Total 1564 / 1564 3328 / 3328 2587 / 2587 Balance 1564 / 1464 3328 / 3328 2587 / 2587 Microbiology Past 72 Hours 04/25/18 12:54 Gram Stain - Final Sputum, Expectorated/Coughed Respiratory Culture - Preliminary Appears to be normal respiratory andry. Further studies to follow. 04/24/18 08:50 Blood Culture - Preliminary Blood Culture (Wb) - Right Hand No growth in 48 hours. 04/24/18 08:37 Blood Culture - Preliminary Blood Culture (Wb) - Anticubital Left No growth in 48 hours. Laboratory Tests Past 24 Hrs 04/26/18 04/26/18 05:36 05:36 WBC 7.8 RBC 3.74 L Hgb 11.2 L Hct 36.1 L MCV 96.5 MCH 29.9 MCHC 31.0 L RDW 14.8 H RDW Differential 49.9 H Plt Count 247 MPV 11.1 Immature Gran % (Auto) 0.500 Neut % (Auto) 84.2 H Lymph % (Auto) 9.9 L [place] % (Auto) 4.1 Eos % (Auto) 0.9 Baso % (Auto) 0.4 Absolute Neuts (auto) 6.5 Absolute Lymphs (auto) 0.77 L Total Counted Not Reportable Sodium 143 Potassium 4.6 Chloride 106 Carbon Dioxide 31.0 Anion Gap 6 BUN 15 Creatinine 0.86 Estim Creat Clear Calc 67.54 Est GFR (MDRD) Af Amer 86 Est GFR (MDRD) Non-Af 71 BUN/Creatinine Ratio 17.4 Glucose 132 H Calcium 8.5 Medical Necessity - Tobacco Use Smoking Status: Former smoker Tobacco Use: Non-smoker Assessment/Plan All Active Problems (Last Updated 03/29/18 @ 08:55 by Marii Parekh) Cellulitis of lower leg (Acute) Pain in right leg (Acute) Atrial fibrillation with RVR (Acute) Laceration of head (Acute) SIRS (systemic inflammatory response syndrome) (Acute) Non-healing wound of lower extremity (Acute) Infected open wound (Acute) Trauma complication, late effect (Acute) Allergic reaction due to correct medicinal substance properly administered ( Acute) Pain in left leg (Acute) CAP (community acquired pneumonia) (Resolved) Influenza B (Resolved) Metabolic alkalosis (Resolved) Pneumonia (Resolved) Syncope and collapse (Resolved) Impressions 1. Pneumonia reported on chest x-ray by the radiologist however the patient has been afebrile with a normal white blood cell count since admission. It is possible she has a viral pneumonia. We will continue antibiotics for now and check a respiratory panel in the a.m. 2. Diffuse bronchospasm-continue aerosolized bronchodilators. Discontinue prednisone and start Solu-Medrol 60 mg IV every 8 hours. 3. Morbid obesity 4. Hypertension 5. Chronic atrial fibrillation-rate controlled, will continue Cardizem and apixaban 6. Hypokalemia-resolved repeat a PA and a lateral CXR in the AM Code Visit Inpatient E&M: [id number] Subs Hosp L2
[2018-04-27] VITALS (13 sets, daily range): BP systolic 132–155; BP diastolic 79–93; PULSE 75–111; RESP 18–20; TEMP 36.9–37.2; O2SAT 93–98
[2018-04-27] MEDS: dilTIAZem 60 MG CAP.SR.12H 120 MG PO ×3 (00:01→22:09)
[2018-04-27] MEDS: APIXABAN 5 MG TABLET PO ×3 (00:02→22:09)
[2018-04-27] MEDS: MethylPREDNISolone 125 MG/2 ML Vial 60 MG IV ×4 (00:03→22:10)
[2018-04-27] MEDS: 0.9% NaCl Peripheral Flush Adult/Peds IV ×4 (00:03→22:10)
[2018-04-27] MEDS: guaiFENesin 1,200 MG Tablet 1200 MG PO ×3 (00:03→22:09)
[2018-04-27] MEDS: lamoTRIgine 100 MG Tablet PO ×2 (00:03→22:09)
[2018-04-27] MEDS: Metoprolol Tartrate 50 MG Tablet 75 MG PO ×3 (00:04→22:09)
[2018-04-27] MEDS: LORazepam 1 MG Tablet PO (00:04)
[2018-04-27] MEDS: oxyCODONE 5 MG Tablet PO ×3 (03:50→20:20)
[2018-04-27] MEDS: Ipratropium/Albuterol Sulfate 3 ML AMPUL.NEB INHALATION ×4 (03:54→23:44)
--- NOTE | 2018-04-27 05:55 | RAD_ITS ---
STUDY: X-RAY CHEST REASON FOR EXAM: Female, 62 years old. Cough. History of pneumonia. TECHNIQUE: PA and lateral views of the chest. COMPARISON: Comparison is made with prior study dated April 23, 2018. FINDINGS: Mild increased markings at the lung bases. This has progressed as compared to prior study. Follow-up is recommended. There is no demonstrated pleural abnormality. Normal size heart. Normal mediastinum and guillaume. Normal visualized pulmonary arteries. There is atherosclerotic tortuosity of the aortic arch and descending thoracic aorta. There are diffuse degenerative changes of the visualized thoracic spine. Normal visualized ribs, clavicles, and shoulders. There is no demonstrated abnormality of the visualized soft tissue structures of the upper abdomen. RAD/Chest PA and Lateral IMPRESSION: Progressive increased markings at the lung bases. Further follow-up is recommended. Electronically Signed: Dwight Ledbetter MD at 16:00 EDT Tel [phone], Service support ,
[2018-04-27] MEDS: Ceftriaxone 1 GM/50 ML BAG IV (09:01)
[2018-04-27] MEDS: Vitamin E 400 UNITS Capsule PO (09:03)
[2018-04-27] MEDS: Oxybutynin 5 MG Tablet 10 MG PO ×2 (09:03→17:38)
[2018-04-27] MEDS: Multivitamins,Therapeutic Tablet 1 TABLET PO (09:03)
[2018-04-27] MEDS: FLUoxetine 20 MG Capsule 40 MG PO (09:03)
[2018-04-27] MEDS: Pantoprazole Sodium 40 MG Tablet PO (09:03)
[2018-04-27] MEDS: Collagenase 30gm Tube 1 APPLIC TOPICAL (10:25)
[2018-04-27] MEDS: Benzonatate 100 MG Capsule PO ×2 (14:26→22:10)
--- NOTE | 2018-04-27 20:07 | PN_ITS ---
Subjective: She remains afebrile. Vital signs are stable. She is 93-95% saturated on room air. Continues to complain of shortness of breath, especially with exertion. Respiratory panel is positive for parainfluenza 3 Chest x-ray today shows no obvious infiltrates. She does have increased linear markings at the bases and these are most likely secondary to atelectasis or scarring. Objective: General: Alert, oriented ?3, cooperative, pleasant and appropriate Neck: Supple, trachea midline, no enlarged cervical nodes, no enlarged supraclavicular nodes Lungs: diffuse wheezing but less tight than yesterday with increased air exchange, symmetric chest expansion, not tachypneic at rest, no conversational dyspnea, no accessory muscle use.. She does get tachypneic with minimal exertion. Heart: Regular rate and rhythm, normal S1, normal S2, no murmur, no gallop, no rub Abdomen: Soft, NT, ND, bowel sounds present, obese Extremities: No clubbing, no peripheral edema, no cyanosis - Physical Exam Vital Signs Temp Pulse Resp BP Pulse Ox 98.7 F 91 18 150/80 H 95 04/27/18 17:40 04/27/18 17:40 04/27/18 17:40 04/27/18 17:40 04/27/18 17:40 Oxygen Flow Rate (L/min) 1 Oxygen Delivery Method Room Air Weight: 289 lb 4.79 oz Intake and Output for Last 24 Hours 04/25/18 04/26/18 04/27/18 23:59 23:59 23:59 Intake Total 3328 / 3328 2587 / 2587 1913 / 1913 Output Total 100 / 100 Balance 3328 / 3328 2587 / 2587 1813 / 1813 Microbiology Past 72 Hours 04/26/18 23:50 Respiratory Panel (PCR) - Final Interface Orders Parainfluenza 3 04/25/18 12:54 Gram Stain - Final Sputum, Expectorated/Coughed Respiratory Culture - Preliminary Appears to be normal respiratory andry. Further studies to follow. 04/24/18 08:50 Blood Culture - Preliminary Blood Culture (Wb) - Right Hand No growth in 48 hours. 04/24/18 08:37 Blood Culture - Preliminary Blood Culture (Wb) - Anticubital Left No growth in 48 hours. Medical Necessity - Tobacco Use Smoking Status: Former smoker Tobacco Use: Non-smoker Assessment/Plan All Active Problems (Last Updated 03/29/18 @ 08:55 by Marii Parekh) Cellulitis of lower leg (Acute) Pain in right leg (Acute) Atrial fibrillation with RVR (Acute) Laceration of head (Acute) SIRS (systemic inflammatory response syndrome) (Acute) Non-healing wound of lower extremity (Acute) Infected open wound (Acute) Trauma complication, late effect (Acute) Allergic reaction due to correct medicinal substance properly administered ( Acute) Pain in left leg (Acute) CAP (community acquired pneumonia) (Resolved) Influenza B (Resolved) Metabolic alkalosis (Resolved) Pneumonia (Resolved) Syncope and collapse (Resolved) Impressions 1. Pneumonia reported on chest x-ray by the radiologist however the patient has been afebrile with a normal white blood cell count since admission. The CXR today shows better inspiration and per my review there is no infiltrates. 2. Diffuse bronchospasm-continue aerosolized bronchodilators. Discontinue prednisone and start Solu-Medrol 60 mg IV every 8 hours. 3. Morbid obesity 4. Hypertension 5. Chronic atrial fibrillation-rate controlled, will continue Cardizem and apixaban 6. Hypokalemia-resolved 7. Obstructive sleep apnea 8. Anxiety/depression Continue current treatment, possible conversion to prednisone in the a.m. if she continues to improve...... Ambulatory pulse ox prior to discharge Code Visit Inpatient E&M: [id number] Subs Hosp L2
[2018-04-28] VITALS (10 sets, daily range): BP systolic 138–150; BP diastolic 91–107; PULSE 76–101; RESP 16–20; TEMP 36.6–36.8; O2SAT 92–96
[2018-04-28] MEDS: LORazepam 1 MG Tablet PO ×2 (00:09→22:11)
[2018-04-28] MEDS: oxyCODONE 5 MG Tablet PO ×3 (02:38→22:11)
[2018-04-28] MEDS: Ipratropium/Albuterol Sulfate 3 ML AMPUL.NEB INHALATION ×5 (03:47→19:21)
[2018-04-28] MEDS: 0.9% NaCl Peripheral Flush Adult/Peds IV (06:16)
[2018-04-28] MEDS: MethylPREDNISolone 125 MG/2 ML Vial 60 MG IV (06:16)
[2018-04-28] MEDS: dilTIAZem 60 MG CAP.SR.12H 120 MG PO ×2 (09:46→22:08)
[2018-04-28] MEDS: Ceftriaxone 1 GM/50 ML BAG IV (09:46)
[2018-04-28] MEDS: FLUoxetine 20 MG Capsule 40 MG PO (09:46)
[2018-04-28] MEDS: Oxybutynin 5 MG Tablet 10 MG PO ×2 (09:46→17:18)
[2018-04-28] MEDS: guaiFENesin 1,200 MG Tablet 1200 MG PO ×2 (09:47→22:08)
[2018-04-28] MEDS: Vitamin E 400 UNITS Capsule PO (09:47)
[2018-04-28] MEDS: Multivitamins,Therapeutic Tablet 1 TABLET PO (09:47)
[2018-04-28] MEDS: Pantoprazole Sodium 40 MG Tablet PO (09:47)
[2018-04-28] MEDS: Metoprolol Tartrate 50 MG Tablet 75 MG PO ×2 (09:47→22:09)
[2018-04-28] MEDS: APIXABAN 5 MG TABLET PO ×2 (09:47→22:08)
[2018-04-28] MEDS: Collagenase 30gm Tube 1 APPLIC TOPICAL (10:20)
--- NOTE | 2018-04-28 12:16 | NURSING ---
dressing changed to the RLE per DELIO Lechuga. Did not remove at this time.
[2018-04-28] MEDS: Acetaminophen 325 MG Tablet 650 MG PO (15:00)
[2018-04-28] MEDS: Benzonatate 100 MG Capsule PO ×2 (15:00→22:10)
[2018-04-28] MEDS: predniSONE 20 MG Tablet 40 MG PO (15:00)
--- NOTE | 2018-04-28 20:53 | PN_ITS ---
Subjective: She is afebrile. Vital signs are stable. She is 94% saturated on room air today. She continues to C/O SOB, harry with exertion but this is improving and she is actually requesting to be discharged. The cough is now mostly dry and the wheezing has improved. Objective: General: Alert, oriented ?3, cooperative, pleasant and appropriate Neck: Supple, trachea midline, no enlarged cervical nodes, no enlarged supraclavicular nodes Lungs: scattered mild wheezing, less tight with increased air exchange, symmetric chest expansion, not tachypneic at rest, no conversational dyspnea, no accessory muscle use.. She does get tachypneic with minimal exertion. Heart: Regular rate and rhythm, normal S1, normal S2, no murmur, no gallop, no rub Abdomen: Soft, NT, ND, bowel sounds present, obese Extremities: No clubbing, no peripheral edema, no cyanosis - Physical Exam Lungs: Wheezes - Very mild today with much improved air exchange. No rails. No conversational dyspnea. Not tachypneic at rest. Symmetric chest rise. Cardiovascular: Regular rate, Regular Rhythm, Normal S1, Normal S2 Vital Signs Temp Pulse Resp BP Pulse Ox 97.9 F 76 16 145/91 H 94 04/28/18 14:57 04/28/18 16:06 04/28/18 16:06 04/28/18 14:57 04/28/18 14:57 Oxygen Flow Rate (L/min) 1 Oxygen Delivery Method Room Air Weight: 289 lb 4.79 oz Intake and Output for Last 24 Hours 04/26/18 04/27/18 04/28/18 23:59 23:59 23:59 Intake Total 2587 / 2587 1913 / 1913 700 / 700 Output Total 100 / 100 1750 / 1750 Balance 2587 / 2587 1813 / 1813 -1050 / -1050 Microbiology Past 72 Hours 04/25/18 12:54 Gram Stain - Final Sputum, Expectorated/Coughed Respiratory Culture - Final Mixed normal respiratory andry. No Haemophilus, Streptococcus pneumoniae, beta-hemolytic Streptococcus or Staphylococcus aureus isolated. 04/26/18 23:50 Respiratory Panel (PCR) - Final Interface Orders Parainfluenza 3 04/24/18 08:50 Blood Culture - Preliminary Blood Culture (Wb) - Right Hand No growth in 48 hours. 04/24/18 08:37 Blood Culture - Preliminary Blood Culture (Wb) - Anticubital Left No growth in 48 hours. Medical Necessity - Tobacco Use Smoking Status: Former smoker Tobacco Use: Non-smoker Assessment/Plan All Active Problems (Last Updated 04/29/18 @ 15:18 by Cee Mcnulty DO) Hypokalemia (Acute) Acute exacerbation of chronic obstructive pulmonary disease (COPD) (Acute) Parainfluenza virus bronchopneumonia (Acute) Non-healing wound of lower extremity (Acute) Allergic reaction due to correct medicinal substance properly administered ( Resolved) Atrial fibrillation with RVR (Resolved) CAP (community acquired pneumonia) (Resolved) Cellulitis of lower leg (Resolved) Influenza B (Resolved) Laceration of head (Resolved) Metabolic alkalosis (Resolved) Pneumonia (Resolved) Syncope and collapse (Resolved) Impressions 1. Pneumonia reported on chest x-ray by the radiologist however the patient has been afebrile with a normal white blood cell count since admission. The CXR today shows better inspiration and per my review there is no infiltrates. 2. Diffuse bronchospasm-continue aerosolized bronchodilators. Discontinue prednisone and start Solu-Medrol 60 mg IV every 8 hours. 3. Morbid obesity 4. Hypertension 5. Chronic atrial fibrillation-rate controlled, will continue Cardizem and apixaban 6. Hypokalemia-resolved 7. Obstructive sleep apnea 8. Anxiety/depression Transition to prednisone today. Patient encouraged to get up and walk. Ambulatory pulse ox on room air in the a.m. Probable discharge on 04/29/2018. Code Visit Inpatient E&M: [id number] Subs Hosp L1
[2018-04-28] MEDS: lamoTRIgine 100 MG Tablet PO (22:09)
[2018-04-29] VITALS (9 sets, daily range): BP systolic 116–132; BP diastolic 68–76; PULSE 90–98; RESP 18–21; TEMP 36.4–36.9; O2SAT 92–95
--- NOTE | 2018-04-29 05:43 | NURSING ---
Ambulatory pulse ox attended. Pt unable to walk in the corridors as in isolation so walked back and forth in room 5 or 6 times. Stopped pt when she started to feel slightly dizzy. Pulse ox remained steady at 95-96% whilst ambulating.
[2018-04-29] MEDS: Ipratropium/Albuterol Sulfate 3 ML AMPUL.NEB INHALATION ×3 (07:24→15:08)
[2018-04-29] MEDS: Collagenase 30gm Tube 1 APPLIC TOPICAL (08:26)
--- NOTE | 2018-04-29 09:00 | NURSING ---
wound photo: right lateral lower leg
[2018-04-29] MEDS: Ceftriaxone 1 GM/50 ML BAG IV (10:13)
[2018-04-29] MEDS: Acetaminophen 325 MG Tablet 650 MG PO (10:13)
[2018-04-29] MEDS: guaiFENesin 1,200 MG Tablet 1200 MG PO (10:14)
[2018-04-29] MEDS: predniSONE 20 MG Tablet 40 MG PO (10:14)
[2018-04-29] MEDS: APIXABAN 5 MG TABLET PO (10:14)
[2018-04-29] MEDS: Vitamin E 400 UNITS Capsule PO (10:14)
[2018-04-29] MEDS: Pantoprazole Sodium 40 MG Tablet PO (10:14)
[2018-04-29] MEDS: Metoprolol Tartrate 50 MG Tablet 75 MG PO (10:14)
[2018-04-29] MEDS: FLUoxetine 20 MG Capsule 40 MG PO (10:14)
[2018-04-29] MEDS: Oxybutynin 5 MG Tablet 10 MG PO (10:14)
[2018-04-29] MEDS: Multivitamins,Therapeutic Tablet 1 TABLET PO (10:15)
[2018-04-29] MEDS: dilTIAZem 60 MG CAP.SR.12H 120 MG PO (10:15)
[2018-04-29] MEDS: oxyCODONE 5 MG Tablet PO (10:18)
[2018-04-29] MEDS: 0.9% NaCl Peripheral Flush Adult/Peds IV (10:19)
--- NOTE | 2018-04-29 15:14 | PCM.DC ---
- Discharge Diagnoses Current Active Problems: Current Active and Chronic Problems (Last Updated 03/29/18 @ 08:55 by Marii Parekh) Atrial fibrillation and flutter (Chronic) You will use the following diet at home:: Calorie/Carbohydrate Controlled (specify 1200, 1400, etc) - Recommend a 1400-calorie diet to lose weight, low-salt and low-cholesterol Your food should be the consistency of: Regular Your liquids should be the consistency of: Regular/Thin Discharge Activity: - - Avoid exposure to any strong smells such as bleach, cleaning products, strong colognes or perfumes, paint fumes and smoke of any kind. Avoid sudden exposure to cold air because this can cause bronchospasm. You may want to cover your mouth when you go outside in the winter. Avoid exposure to anyone who is sick with a cough or sore throat. Call your doctor if you observe: Fever of 101 or Higher, Dizziness, Fainting spells, Chest pain, - - Increased cough, purulent sputum Instructions: MyPlate Worksheet: 1,400 Calories Pending Tests on Discharge: none Allergies/Adverse Reactions: Allergies morphine Allergy (Verified 04/24/18 01:31) Itching nifedipine [From Procardia] Adverse Reaction (Verified 04/24/18 01:31) Other elevates bp Medications to take at Discharge Multivitamins,Therapeutic [Multivitamin] 1 tab PO DAILY 05/05/15 Oxybutynin [Ditropan] 10 mg PO BID 05/19/15 Ergocalciferol [Vitamin D] 50,000 unit PO LUDWIG 09/14/15 Vitamin E 400 units PO DAILY 01/01/16 Furosemide 40 mg PO BID 02/05/16 Albuterol Sulfate [Ventolin Hfa] 2 puff INHALATION Q4H PRN 01/20/17 Lorazepam 1 mg PO DAILY PRN 01/20/17 Albuterol Aerosols [Ventolin Aerosols] 2.5 mg INHALATION Q4H PRN PRN vial.neb. 10/22/17 Pantoprazole Sodium [Protonix] 40 mg PO DAILY tab 10/22/17 apixaban 5 mg tablet 5 mg PO BID #180 tab 12/25/17 fluoxetine 40 mg capsule 40 mg PO QDAY 12/29/17 potassium chloride ER 10 mEq tablet,extended release 40 meq PO BID 12/29/17 trazodone 150 mg tablet 150 mg PO QHS PRN 12/29/17 diltiazem ER 120 mg capsule,extended release 12 hr 120 mg PO BID #180 cap 01/04/18 Metoprolol Tartrate [Lopressor (beta avila)] 75 mg PO BID #60 tab 03/08/18 Lamotrigine 100 mg PO QHS 04/24/18 Collagenase [Santyl] 1 applic TOPICAL DAILY #1 tube 04/29/18 Guaifenesin [Mucinex] 1,200 mg PO BID #20 tab 04/29/18 Hydrocodone Bit/Homatropine [Hycodan Syrup] 5 - 10 ml PO Q6H PRN PRN 7 Days #120 ml 04/29/18 Prednisone 10 mg PO UD #30 tablet 04/29/18 Psyllium [Metamucil] 1 packet PO DAILY PRN PRN #90 packet 04/29/18 The following prescriptions were given: Hydrocodone Bit/Homatropine [Hycodan Syrup] 5 - 10 ml PO Q6H PRN PRN 7 Days #120 ml PRN Reason: COUGH Collagenase [Santyl] 1 applic TOPICAL DAILY #1 tube Prednisone 10 mg PO UD #30 tablet Psyllium [Metamucil] 1 packet PO DAILY PRN PRN #90 packet PRN Reason: CONSTIPATION Guaifenesin [Mucinex] 1,200 mg PO BID #20 tab Primary Care Physician: Osiel Grimaldo Chi, MD [Primary Care Provider] - Please follow up with your Primary Care Physician in: 1-2 weeks
--- NOTE | 2018-04-29 15:22 | DCINST_ITS ---
- Discharge Diagnoses Current Active Problems: Current Active and Chronic Problems (Last Updated 03/29/18 @ 08:55 by Marii Parekh) Atrial fibrillation and flutter (Chronic) You will use the following diet at home:: Calorie/Carbohydrate Controlled ( specify 1200, 1400, etc) - Recommend a 1400-calorie diet to lose weight, low- salt and low-cholesterol Your food should be the consistency of: Regular Your liquids should be the consistency of: Regular/Thin Discharge Activity: - - Avoid exposure to any strong smells such as bleach, cleaning products, strong colognes or perfumes, paint fumes and smoke of any kind. Avoid sudden exposure to cold air because this can cause bronchospasm. You may want to cover your mouth when you go outside in the winter. Avoid exposure to anyone who is sick with a cough or sore throat. Call your doctor if you observe: Fever of 101 or Higher, Dizziness, Fainting spells, Chest pain, - - Increased cough, purulent sputum Instructions: MyPlate Worksheet: 1,400 Calories Pending Tests on Discharge: none Allergies/Adverse Reactions: Allergies morphine Allergy (Verified 04/24/18 01:31) Itching nifedipine [From Procardia] Adverse Reaction (Verified 04/24/18 01:31) Other elevates bp Medications to take at Discharge Multivitamins,Therapeutic [Multivitamin] 1 tab PO DAILY 05/05/15 Oxybutynin [Ditropan] 10 mg PO BID 05/19/15 Ergocalciferol [Vitamin D] 50,000 unit PO LUDWIG 09/14/15 Vitamin E 400 units PO DAILY 01/01/16 Furosemide 40 mg PO BID 02/05/16 Albuterol Sulfate [Ventolin Hfa] 2 puff INHALATION Q4H PRN 01/20/17 Lorazepam 1 mg PO DAILY PRN 01/20/17 Albuterol Aerosols [Ventolin Aerosols] 2.5 mg INHALATION Q4H PRN PRN vial.neb. 10/22/17 Pantoprazole Sodium [Protonix] 40 mg PO DAILY tab 10/22/17 apixaban 5 mg tablet 5 mg PO BID #180 tab 12/25/17 fluoxetine 40 mg capsule 40 mg PO QDAY 12/29/17 potassium chloride ER 10 mEq tablet,extended release 40 meq PO BID 12/29/17 trazodone 150 mg tablet 150 mg PO QHS PRN 12/29/17 diltiazem ER 120 mg capsule,extended release 12 hr 120 mg PO BID #180 cap Metoprolol Tartrate [Lopressor (beta avila)] 75 mg PO BID #60 tab 03/08/18 Lamotrigine 100 mg PO QHS 04/24/18 Collagenase [Santyl] 1 applic TOPICAL DAILY #1 tube 04/29/18 Guaifenesin [Mucinex] 1,200 mg PO BID #20 tab 04/29/18 Hydrocodone Bit/Homatropine [Hycodan Syrup] 5 - 10 ml PO Q6H PRN PRN 7 Days # 120 ml 04/29/18 Prednisone 10 mg PO UD #30 tablet 04/29/18 Psyllium [Metamucil] 1 packet PO DAILY PRN PRN #90 packet 04/29/18 The following prescriptions were given: Hydrocodone Bit/Homatropine [Hycodan Syrup] 5 - 10 ml PO Q6H PRN PRN 7 Days # 120 ml PRN Reason: COUGH Collagenase [Santyl] 1 applic TOPICAL DAILY #1 tube Prednisone 10 mg PO UD #30 tablet Psyllium [Metamucil] 1 packet PO DAILY PRN PRN #90 packet PRN Reason: CONSTIPATION Guaifenesin [Mucinex] 1,200 mg PO BID #20 tab Primary Care Physician: Osiel Grimaldo Chi, MD [Primary Care Provider] - Please follow up with your Primary Care Physician in: 1-2 weeks
--- NOTE | 2018-04-29 15:23 | DS.PCM_ITS ---
Discharge Date and Diagnosis Date of Admission: 04/24/18 Date of Discharge: 04/29/18 - Primary Discharge Diagnosis Active and Suspected Problems (Last Updated 03/29/18 @ 08:55 by Marii Parekh) Acute exacerbation of chronic obstructive pulmonary disease (COPD) (Acute) Parainfluenza virus bronchopneumonia (Acute) Hypokalemia (Acute) - Secondary Discharge Diagnosis Chronic Problems (Last Updated 03/29/18 @ 08:55 by Marii Parekh) History of MRSA infection (Chronic) Paroxysmal atrial fibrillation (Chronic)-on chronic anticoagulation with apixaban Palpitations (Chronic) Diabetes mellitus (Chronic) Degeneration of lumbosacral intervertebral disc (Chronic) Lumbosacral spondylosis (Chronic) History of left heart catheterization (Chronic ~01/2014) 01/2013, 01/2014 COPD (chronic obstructive pulmonary disease) (Chronic) Bilateral lower extremity edema (Chronic) Morbid obesity with BMI of 45.0-49.9, adult (Chronic) Non-alcoholic cirrhosis (Chronic) GERD (gastroesophageal reflux disease) (Chronic) Hypertension (Chronic) LUIS (obstructive sleep apnea) (Chronic) Tremor (Chronic) Anxiety (Chronic) Hospital Course and Treatment Imaging Results: Clinical Impression(s) from Imaging Studies Chest X-Ray 04/24/18 02:20 IMPRESSION: Right medial lung base pneumonia. Electronically Signed: Daniel Conde MD at 2:56 EDT Tel , Service support , Chest X-Ray 04/27/18 05:55 IMPRESSION: Progressive increased markings at the lung bases. Further follow-up is recommended. Electronically Signed: Dwight Ledbetter MD at 16:00 EDT Tel [phone], Service support , Laboratory Tests 04/24/18 04/24/18 04/24/18 02:55 03:55 03:55 WBC 8.2 RBC 3.97 L Hgb 11.7 L Hct 36.8 L MCV 92.7 MCH 29.5 MCHC 31.8 L RDW 14.4 RDW Differential 49.3 H Plt Count 217 MPV 10.4 Immature Gran % (Auto) 0.200 Neut % (Auto) 78.6 H Lymph % (Auto) 15.8 L [place] % (Auto) 4.2 Eos % (Auto) 1.1 Baso % (Auto) 0.1 Absolute Neuts (auto) 6.4 Absolute Lymphs (auto) 1.29 Total Counted Not Reportable Sodium 141 Potassium 3.2 L Chloride 103 Carbon Dioxide 31.0 Anion Gap 7 BUN 13 Creatinine 0.69 Estim Creat Clear Calc 84.18 Est GFR (MDRD) Af Amer 110 Est GFR (MDRD) Non-Af 91 BUN/Creatinine Ratio 18.8 Glucose 117 H Hemoglobin A1c Calcium 8.5 Urine Color Yellow Urine Clarity Sl. Cloudy Urine pH 7.0 Ur Specific [place] 1.010 Urine Protein Negative Urine Glucose (UA) Normal Urine Ketones Negative Urine Occult Blood 25 H Urine Nitrite Negative Urine Bilirubin Negative Urine Urobilinogen Normal Ur Leukocyte Esterase Negative Urine RBC 0-5 SEEN Urine WBC 0 SEEN Ur Squamous Epith Cells 0 SEEN Urine Bacteria 0 SEEN Urine Mucus 0 SEEN 04/24/18 04/25/18 04/25/18 08:50 06:00 06:00 WBC 6.5 RBC 3.64 L Hgb 10.6 L Hct 34.0 L MCV 93.4 MCH 29.1 MCHC 31.2 L RDW 14.6 RDW Differential 50.1 H Plt Count 228 MPV 10.8 Immature Gran % (Auto) 0.200 Neut % (Auto) 67.9 Lymph % (Auto) 19.7 [place] % (Auto) 10.5 H Eos % (Auto) 1.4 Baso % (Auto) 0.3 Absolute Neuts (auto) 4.4 Absolute Lymphs (auto) 1.28 Total Counted Not Reportable Sodium 147 H Potassium 3.5 Chloride 111 H Carbon Dioxide 28.0 Anion Gap 8 BUN 13 Creatinine 0.70 Estim Creat Clear Calc 82.98 Est GFR (MDRD) Af Amer 109 Est GFR (MDRD) Non-Af 90 BUN/Creatinine Ratio 18.7 Glucose 105 Hemoglobin A1c 5.7 Calcium 8.4 L Urine Color Urine Clarity Urine pH Ur Specific [place] Urine Protein Urine Glucose (UA) Urine Ketones Urine Occult Blood Urine Nitrite Urine Bilirubin Urine Urobilinogen Ur Leukocyte Esterase Urine RBC Urine WBC Ur Squamous Epith Cells Urine Bacteria Urine Mucus 04/26/18 04/26/18 05:36 05:36 WBC 7.8 RBC 3.74 L Hgb 11.2 L Hct 36.1 L MCV 96.5 MCH 29.9 MCHC 31.0 L RDW 14.8 H RDW Differential 49.9 H Plt Count 247 MPV 11.1 Immature Gran % (Auto) 0.500 Neut % (Auto) 84.2 H Lymph % (Auto) 9.9 L [place] % (Auto) 4.1 Eos % (Auto) 0.9 Baso % (Auto) 0.4 Absolute Neuts (auto) 6.5 Absolute Lymphs (auto) 0.77 L Total Counted Not Reportable Sodium 143 Potassium 4.6 Chloride 106 Carbon Dioxide 31.0 Anion Gap 6 BUN 15 Creatinine 0.86 Estim Creat Clear Calc 67.54 Est GFR (MDRD) Af Amer 86 Est GFR (MDRD) Non-Af 71 BUN/Creatinine Ratio 17.4 Glucose 132 H Hemoglobin A1c Calcium 8.5 Urine Color Urine Clarity Urine pH Ur Specific [place] Urine Protein Urine Glucose (UA) Urine Ketones Urine Occult Blood Urine Nitrite Urine Bilirubin Urine Urobilinogen Ur Leukocyte Esterase Urine RBC Urine WBC Ur Squamous Epith Cells Urine Bacteria Urine Mucus Microbiology 04/24/18 08:37 Blood Culture (Wb) - Anticubital Left Blood Culture - Final No growth in 5 days. 04/24/18 08:50 Blood Culture (Wb) - Right Hand Blood Culture - Final No growth in 5 days. 04/25/18 12:54 Sputum, Expectorated/Coughed Gram Stain - Final 04/25/18 12:54 Sputum, Expectorated/Coughed Respiratory Culture - Final Mixed normal respiratory andry. No Haemophilus, Streptococcus pneumoniae, beta-hemolytic Streptococcus or Staphylococcus aureus isolated. 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 She had recently finished a 10 day course of Bactrim for cellulitis of the lower extremity secondary to MRSA. Chest x-ray in the emergency room showed a right basilar pneumonia. White blood cell count was normal at 8.2 and the percent neutrophils were 78.6%. Legionella and streptococcal antigens in the urine were negative. Blood cultures had no growth after 48 hours. Sputum culture had normal respiratory andry. A respiratory panel was positive for parainfluenza 3. She was afebrile throughout her hospital admission. White blood cell count was normal throughout her admission. She was treated with aerosolized bronchodilators and high-dose steroids for acute exacerbation of COPD secondary to bronchopneumonia secondary to parainfluenza 3. She was transitioned to prednisone on 04/28/2018 and on 04/29/2018 she was afebrile with stable vital signs and the respiratory rate was 21 with a pulse ox of 95% on room air. Pulse ox ambulating on room air was 95%. She was discharged home on a prednisone taper and guaifenesin and will follow up with Dr. Grimaldo in 1-2 weeks. Weight loss was recommended and she was given literature for a 1400- calorie diet. The wound on the lower extremity had an eschar and she was given a RX for Santyl to continue at home. General: Alert, oriented ?3, cooperative, pleasant and appropriate Neck: Supple, trachea midline, no enlarged cervical nodes, no enlarged supraclavicular nodes Lungs: CTA, fair air exchange, symmetric chest expansion, not tachypneic at rest, no conversational dyspnea, no accessory muscle use.. She does get tachypneic with minimal exertion and weight loss and possibly pulmonary rehab has been recommended Heart: Regular rate and rhythm, normal S1, normal S2, no murmur, no gallop, no rub Abdomen: Soft, NT, ND, bowel sounds present, obese Extremities: No clubbing, no peripheral edema, no cyanosis Discharge Activity: - - Avoid exposure to any strong smells such as bleach, cleaning products, strong colognes or perfumes, paint fumes and smoke of any kind. Avoid sudden exposure to cold air because this can cause bronchospasm. You may want to cover your mouth when you go outside in the winter. Avoid exposure to anyone who is sick with a cough or sore throat. Call your doctor if you observe: Fever of 101 or Higher, Dizziness, Fainting spells, Chest pain, - - Increased cough, purulent sputum Home Medications: Medications to take at Discharge Multivitamins,Therapeutic [Multivitamin] 1 tab PO DAILY 05/05/15 Oxybutynin [Ditropan] 10 mg PO BID 05/19/15 Ergocalciferol [Vitamin D] 50,000 unit PO LUDWIG 09/14/15 Vitamin E 400 units PO DAILY 01/01/16 Furosemide 40 mg PO BID 02/05/16 Albuterol Sulfate [Ventolin Hfa] 2 puff INHALATION Q4H PRN 01/20/17 Lorazepam 1 mg PO DAILY PRN 01/20/17 Albuterol Aerosols [Ventolin Aerosols] 2.5 mg INHALATION Q4H PRN PRN vial.neb. 10/22/17 Pantoprazole Sodium [Protonix] 40 mg PO DAILY tab 10/22/17 apixaban 5 mg tablet 5 mg PO BID #180 tab 12/25/17 fluoxetine 40 mg capsule 40 mg PO QDAY 12/29/17 potassium chloride ER 10 mEq tablet,extended release 40 meq PO BID 12/29/17 trazodone 150 mg tablet 150 mg PO QHS PRN 12/29/17 diltiazem ER 120 mg capsule,extended release 12 hr 120 mg PO BID #180 cap Metoprolol Tartrate [Lopressor (beta avila)] 75 mg PO BID #60 tab 03/08/18 Lamotrigine 100 mg PO QHS 04/24/18 Collagenase [Santyl] 1 applic TOPICAL DAILY #1 tube 04/29/18 Guaifenesin [Mucinex] 1,200 mg PO BID #20 tab 04/29/18 Hydrocodone Bit/Homatropine [Hycodan Syrup] 5 - 10 ml PO Q6H PRN PRN 7 Days # 120 ml 04/29/18 Prednisone 10 mg PO UD #30 tablet 04/29/18 Psyllium [Metamucil] 1 packet PO DAILY PRN PRN #90 packet 04/29/18 Following Prescrptions Were Given to Patient: Hydrocodone Bit/Homatropine [Hycodan Syrup] 5 - 10 ml PO Q6H PRN PRN 7 Days # 120 ml PRN Reason: COUGH Collagenase [Santyl] 1 applic TOPICAL DAILY #1 tube Prednisone 10 mg PO UD #30 tablet Psyllium [Metamucil] 1 packet PO DAILY PRN PRN #90 packet PRN Reason: CONSTIPATION Guaifenesin [Mucinex] 1,200 mg PO BID #20 tab Primary Care Physician: Osiel Grimaldo Chi, MD [Primary Care Provider] - Please follow up with your Primary Care Physician in: 1-2 weeks Patient Instructions: MyPlate Worksheet: 1,400 Calories Disposition: Home Minutes spent on discharge:: 30 Patient Condition:: Good Medical Necessity - Tobacco Use Smoking Status: Former smoker Tobacco Use: Non-smoker Meaningful Use Info Meaningful Use Diagnoses (Choose all that apply): None applicable
--- NOTE | 2018-04-30 15:52 | CASEMGMT ---
DELIO HALL Discharge Follow-up Phone Call: QASIM: Jorge Strata: 4 Call Date: 04/30/18 Discharge Date: 04/29/18 Time of Call: 1550 Duration: 1 Admitting Diagnosis: Pneumonia DELIO HALL attempted to complete follow-up phone call after recent hospitalization. DELIO HALL left message with return contact information.
--- NOTE | 2018-05-19 13:29 | CCN.REFER ---
PATIENT WILL NOT RETURN ANY OF CCN CALLS.
--- NOTE | 2018-05-19 14:02 | CCN.REFER ---
PATIENT RETURNED CALL, AND SHE AGREES TO CCN.
== END 2018-04-29 16:47 | disposition home or self-care (01) | DRG 89 ==
LOC: ED 02:09 → MS3 04:10
PROVIDERS: Internal Medicine; Admitting Provider Internal Medicine; Emergency Provider Emergency Medicine; Family Provider Family Medicine Geriatric Medicine; PCP Family Medicine Geriatric Medicine; Visit Provider Internal Medicine
DX: J12.2 Parainfluenza virus pneumonia (principal); I48.2 Chronic atrial fibrillation; J44.1 Chronic obstructive pulmonary disease with (acute) exacerbation; J44.0 Chronic obstructive pulmonary disease with (acute) lower respiratory infection; K74.60 Unspecified cirrhosis of liver; R09.02 Hypoxemia; Z68.41 Body mass index [BMI] 40.0-44.9, adult; I10 Essential (primary) hypertension; Z79.01 Long term (current) use of anticoagulants; E87.6 Hypokalemia; Z87.891 Personal history of nicotine dependence; E66.01 Morbid (severe) obesity due to excess calories; Z79.899 Other long term (current) drug therapy; F41.9 Anxiety disorder, unspecified; F32.9 Major depressive disorder, single episode, unspecified; Z86.14 Personal history of Methicillin resistant Staphylococcus aureus infection; G47.33 Obstructive sleep apnea (adult) (pediatric); K21.9 Gastro-esophageal reflux disease without esophagitis; J98.01 Acute bronchospasm
CPT/HCPCS: 36415; 71045; 71046; 80048; 81001; 83036; 85025; 87040; 87070; 87205; 87449; 87633; 93005; 94640; 97162; 97165; 97802; 99284; J7030; J7050; A4216

== ENCOUNTER → 2018-05-03 15:53 | Outpatient (CLI) | payer MEDICAID, SELFPAY ==
[2018-05-03 17:13] LABS: Absolute Lymphocyte Count 1.82 X10^3/ul (0.83-4.51); Basophil# 0.02 X10^3/uL; Basophil% 0.1 % (0-1); Eosinophil# 0.02 X10^3/uL; Eosinophils% 0.1 % (0-5); Hematocrit 45.4 % (37-47); Hemoglobin 14.8 g/dl (12.0-15.0); Lymphocyte # 1.82 X10^3/ul (4.0); Lymphocyte % 9.7 % (19-41); Mean Corp Hgb Conc 32.6 g/gl (32-36); Mean Corpuscular Hgb 29.4 pg (27.0-32.0); Mean Corpuscular Volume 90.3 fL (81-99); Mean Platelet Vol. 10.1 fl (6.2-12.0); Monocyte# 0.52 X10^3/uL; Monocyte% 2.8 % (0-10); Neutrophil # 16.04 X10^3/uL (2.7-7.7); Neutrophil % 85.7 % (47-70); Platelet Count 428 K/mm3 (150-450); RBC Distribution Width CV 14.2 % (11.6-14.6); RBC Distribution Width SD 46.1 fl (35.1-43.9); Red Blood Count 5.03 M/mm3 (4.2-5.4); White Blood Count 18.7 K/mm3 (4.4-11.0)
[2018-05-03 17:20] LABS: POSITIVE COUNT NO; POSITIVE DIFFERENTIAL NO; POSITIVE MORPHOLOGY NO
[2018-05-03 17:30] LABS: Vitamin D,25 Hydroxy 23.9 ng/mL (29.95-100.01)
[2018-05-03 17:33] LABS: ALB/GLOB Ratio 0.9 RATIO (0.9-2.4); AST(SGOT) 15 U/L (15-37); Alanine Aminotransfer ALT/SGPT 49 U/L (13-56); Albumin, Serum 3.6 g/dL (3.2-5.0); Alkaline Phosphatase 91 U/L (45-117); Anion Gap 9 (5-15); BUN 17 mg/dL (7-18); BUN/Creat Ratio 19.6 RATIO (10-20); Calcium,Total 8.8 mg/dL (8.5-10.1); Chloride 99 mmol/L (98-107); Creatinine, Serum 0.87 mg/dL (0.55-1.02); EST Glomerular Filtration Rate 70 mL/min (>60); Est Glom Filt Rate - Afr Amer 85 mL/min (>60); Globulin 3.8 g/dL (2.2-4.2); Glucose 159 mg/dL (74-106); Potassium 3.4 mmol/L (3.5-5.1); Protein, Total 7.4 g/dL (6.4-8.2); Sodium Level 140 mmol/L (136-145); Thyroid Stim Hormone (TSH) 0.44 uIU/mL (0.358-3.74)
== END ==
PROVIDERS: Family Provider Family Medicine Geriatric Medicine; PCP Family Medicine Geriatric Medicine; Visit Provider Family Medicine Geriatric Medicine
DX: E11.9 Type 2 diabetes mellitus without complications (principal); E55.9 Vitamin D deficiency, unspecified; I10 Essential (primary) hypertension
CPT/HCPCS: 36415; 80053; 82306; 84443; 85025

== ENCOUNTER 2018-05-07 10:00 | Outpatient (RCR) | payer MEDICAID, SELFPAY ==
[2018-04-09 01:10] VITALS: BP 139/62; PULSE 76; RESP 18; TEMP 35.7
[2018-04-09 10:01] VITALS: BP 138/9; PULSE 102; RESP 20; TEMP 37.1
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
[2018-04-30 08:41] VITALS: BP 162/105; RESP 18; TEMP 35.7
--- NOTE | 2018-04-30 08:56 | WC ---
Pt. was in hospital for six days with viral pneumonia. Discharged home yesterday. Is currently on prednisone and hydrocodone cough medication.
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
[2018-05-07 09:59] VITALS: BP 108/61; PULSE 74; RESP 18; TEMP 36.3
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
== END 2018-05-08 23:59 ==
LOC: WC 10:00
PROVIDERS: Family Provider Family Medicine Geriatric Medicine; PCP Family Medicine Geriatric Medicine; Visit Provider Nurse Practitioner
DX: S81.811A Laceration without foreign body, right lower leg, initial encounter (principal); V09.1XXA Pedestrian injured in unspecified nontraffic accident, initial encounter; L03.119 Cellulitis of unspecified part of limb; Z22.322 Carrier or suspected carrier of Methicillin resistant Staphylococcus aureus; R60.0 Localized edema
CPT/HCPCS: 11042; 15271; 87070; 87075; 87077; 87186; 87205; Q4131

== ENCOUNTER 2018-05-14 09:11 | Outpatient (RCR) | payer MEDICAID, SELFPAY ==
[2018-05-09 00:58] VITALS: BP 108/61; PULSE 74; RESP 18; TEMP 36.3
[2018-05-14 11:55] VITALS: BP 137/83; PULSE 95; RESP 18; TEMP 36.2
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
== END 2018-06-08 23:59 ==
LOC: WC 09:11
PROVIDERS: Family Provider Family Medicine Geriatric Medicine; PCP Family Medicine Geriatric Medicine; Visit Provider Nurse Practitioner
DX: L97.919 Non-pressure chronic ulcer of unspecified part of right lower leg with unspecified severity (principal); Z86.14 Personal history of Methicillin resistant Staphylococcus aureus infection
CPT/HCPCS: 99211; G0463

== ENCOUNTER → 2018-06-01 14:10 | Outpatient (CLI) | payer MEDICAID, SELFPAY ==
[2018-06-01 17:36] LABS: Anion Gap 7 (5-15); BUN 15 mg/dL (7-18); BUN/Creat Ratio 15.8 RATIO (10-20); Calcium,Total 8.9 mg/dL (8.5-10.1); Chloride 108 mmol/L (98-107); Creatinine, Serum 0.95 mg/dL (0.55-1.02); EST Glomerular Filtration Rate 63 mL/min (>60); Est Glom Filt Rate - Afr Amer 76 mL/min (>60); Glucose 101 mg/dL (74-106); Potassium 3.6 mmol/L (3.5-5.1); Sodium Level 143 mmol/L (136-145)
== END ==
PROVIDERS: Family Provider Family Medicine Geriatric Medicine; PCP Family Medicine Geriatric Medicine; Visit Provider Physician Assistant Medical
DX: I48.0 Paroxysmal atrial fibrillation (principal); R60.0 Localized edema
CPT/HCPCS: 36415; 80048

== ENCOUNTER 2018-06-14 07:58 | Day surgery (SDC) | payer MEDICAID, SELFPAY ==
[2018-06-14 08:20] VITALS: BP 113/74; PULSE 96; RESP 18; TEMP 36.2; O2SAT 100; BMI 40.9
[2018-06-14] MEDS: Bupivacaine 0.25% 30 ML Vial (08:55)
[2018-06-14] MEDS: MethylPREDNISolone Acetate 80 MG/ML Vial (08:55)
[2018-06-14 09:11] VITALS: BP 113/74; BP 87/61; PULSE 89; RESP 16; TEMP 36.3; O2SAT 97
[2018-06-14 09:15] VITALS: BP 113/74; BP 91/63; PULSE 75; RESP 16; O2SAT 95
[2018-06-14 09:18] VITALS: BP 113/74; BP 92/58; PULSE 75; RESP 16; O2SAT 95
[2018-06-14 09:24] VITALS: BP 113/74; BP 96/64; PULSE 72; RESP 16; TEMP 36.1; O2SAT 95
[2018-06-14 09:52] VITALS: BP 113/74
--- NOTE | 2018-06-14 10:50 | OP.PCM_ITS ---
Problem List (1) Degeneration of lumbosacral intervertebral disc Status: Chronic (2) Lumbosacral spondylosis Status: Chronic Report of Operation Date of Procedure: 06/14/18 Pre-Operative Diagnosis: Lumbosacral spondylosis, lumbosacral degenerative disc disease, and lumbar facet arthropathy Post-Operative Diagnosis: Lumbosacral spondylosis, lumbosacral degenerative disc disease, and lumbar facet arthropathy Surgery/Procedure Performed:: Left-sided lumbar facet steroid injection L3, L4, L5, S1 Description of Surgical Findings:: PROCEDURE: Left-sided lumbar facet steroid injection L3, L4, L5, S1 PREOPERATIVE DIAGNOSIS: Lumbosacral spondylosis, lumbosacral degenerative disc disease, and lumbar facet arthropathy POSTOPERATIVE DIAGNOSIS: Lumbosacral spondylosis, lumbosacral degenerative disc disease, and lumbar facet arthropathy ANESTHESIA: MAC COMPLICATIONS: None BLOOD LOSS: Minimal PROCEDURE IN DETAIL: History and physical today was reviewed. Risks and benefits of the procedure were explained. The patient understood, agreed to our procedure, and informed consent was obtained. IV inserted per routine protocol. The patient was taken to the operating room, placed in a prone position with a pillow positioned underneath the abdomen. The right side of his lower back was prepped and draped in a sterile fashion using iodine x3. Under fluoroscopy guidance, on AP view, L3 through S1 vertebral bodies were visualized. Skin and subcutaneous tissues were anesthetized with approximately 5 mL of 1% lidocaine using a 25-gauge regular needle. Under direct visualization with fluoroscopy at approximately 25-degree angle, starting on the left L3, ending on the left S1, passing through the L4-L5 using a 22-gauge 3 1/2-inch spinal needle, the needle was advanced via the skin. The tip of the needle was maneuvered and directed towards the superior and medial gutter of the transverse process at the vicinity of the medial branch. Once the tip of the needle was in contact with the bone, the needle pulled approximately 2 mm off the bone. After negative aspiration of blood with CSF and confirmation of AP as well as oblique view, a total of 8 mL of preservative-free 0.25% Marcaine with 80 mg of Depo- Medrol was injection in divided doses between those 4 levels. The needles were then removed intact. The patient experienced no signs or symptoms intrathecal, intravascular injection. The patient experienced no paraesthesia. The procedure was completed without any apparent difficult, any complication. The patient appeared to tolerate well. ASSESSMENT AND PLAN: This is a 62-year-old Female with Lumbosacral spondylosis, lumbosacral degenerative disc disease, and lumbar facet arthropathy , status post left-sided lumbar facet steroid injection L3 through S1. The patient will continue her current medications. The patient will follow in approximately 2 weeks for possible repeat of the procedure if indicated.
== END 2018-06-14 09:52 | disposition home or self-care (01) ==
LOC: SDC 07:58 → AC 08:05
PROVIDERS: Family Provider Family Medicine Geriatric Medicine; PCP Family Medicine Geriatric Medicine; Visit Provider Anesthesiology Pain Medicine
PROC: 3E0T3BZ Introduction of Anesthetic Agent into Peripheral Nerves and Plexi, Percutaneous Approach (ICD-10-PCS; CPT 64493; principal; 2018-06-14 08:45)
DX: M47.817 Spondylosis without myelopathy or radiculopathy, lumbosacral region (principal); M51.37 Other intervertebral disc degeneration, lumbosacral region; M46.96 Unspecified inflammatory spondylopathy, lumbar region; I48.91 Unspecified atrial fibrillation; I10 Essential (primary) hypertension; K50.90 Crohn's disease, unspecified, without complications; M19.90 Unspecified osteoarthritis, unspecified site; K21.9 Gastro-esophageal reflux disease without esophagitis; K74.60 Unspecified cirrhosis of liver; Z78.0 Asymptomatic menopausal state; Z90.49 Acquired absence of other specified parts of digestive tract; Z79.899 Other long term (current) drug therapy; Z87.891 Personal history of nicotine dependence
CPT/HCPCS: 01992; 64493; 64494; 64495; 64483; 72110; J7120

== ENCOUNTER → 2018-06-15 12:01 | Outpatient (CLI) | payer MEDICAID, SELFPAY ==
[2018-06-15 12:49] LABS: Absolute Lymphocyte Count 1.78 X10^3/ul (0.83-4.51); Absolute Neutrophil Count 13.8 X10^3/uL (2.0-7.7); Basophil# 0.01 X10^3/uL; Basophil% 0.1 % (0-1); Eosinophil# 0.01 X10^3/uL; Eosinophils% 0.1 % (0-5); Hematocrit 40.1 % (37-47); Hemoglobin 12.9 g/dl (12.0-15.0); Lymphocyte # 1.78 X10^3/ul (4.0); Lymphocyte % 10.9 % (19-41); Mean Corp Hgb Conc 32.2 g/gl (32-36); Mean Corpuscular Hgb 29.7 pg (27.0-32.0); Mean Corpuscular Volume 92.4 fL (81-99); Mean Platelet Vol. 11.1 fl (6.2-12.0); Monocyte# 0.69 X10^3/uL; Monocyte% 4.2 % (0-10); Neutrophil # 13.81 X10^3/uL (2.7-7.7); Neutrophil % 84.6 % (47-70); Platelet Count 305 K/mm3 (150-450); RBC Distribution Width CV 14.7 % (11.6-14.6); Red Blood Count 4.34 M/mm3 (4.2-5.4); White Blood Count 16.3 K/mm3 (4.4-11.0)
[2018-06-15 12:50] LABS: POSITIVE COUNT NO; POSITIVE DIFFERENTIAL NO; POSITIVE MORPHOLOGY NO
[2018-06-15 13:35] LABS: ALB/GLOB Ratio 1.2 RATIO (0.9-2.4); AST(SGOT) 13 U/L (15-37); Alanine Aminotransfer ALT/SGPT 20 U/L (13-56); Albumin, Serum 3.8 g/dL (3.2-5.0); Alkaline Phosphatase 91 U/L (45-117); Anion Gap 8 (5-15); BUN 22 mg/dL (7-18); BUN/Creat Ratio 21.8 RATIO (10-20); Calcium,Total 9.2 mg/dL (8.5-10.1); Chloride 105 mmol/L (98-107); Creatinine, Serum 1.01 mg/dL (0.55-1.02); EST Glomerular Filtration Rate 59 mL/min (>60); Est Glom Filt Rate - Afr Amer 71 mL/min (>60); Globulin 3.3 g/dL (2.2-4.2); Glucose 104 mg/dL (74-106); Potassium 3.6 mmol/L (3.5-5.1); Protein, Total 7.1 g/dL (6.4-8.2); Sodium Level 145 mmol/L (136-145); Thyroid Stim Hormone (TSH) 1.01 uIU/mL (0.358-3.74)
[2018-06-15 13:42] LABS: BNP,B-Type NATRIURETIC PEPTIDE 312.4 pg/mL (0-100)
== END ==
PROVIDERS: Family Provider Family Medicine Geriatric Medicine; PCP Family Medicine Geriatric Medicine; Visit Provider Family Medicine Geriatric Medicine
DX: R06.02 Shortness of breath (principal); R53.83 Other fatigue
CPT/HCPCS: 36415; 80053; 83880; 84443; 85025

== ENCOUNTER → 2018-07-26 11:03 | Outpatient (CLI) | payer MEDICAID, SELFPAY ==
[2018-07-26 11:53] LABS: Anion Gap 9 (5-15); BUN 12 mg/dL (7-18); BUN/Creat Ratio 16.6 RATIO (10-20); Chloride 106 mmol/L (98-107); Creatinine, Serum 0.72 mg/dL (0.55-1.02); EST Glomerular Filtration Rate 86 mL/min (>60); Est Glom Filt Rate - Afr Amer 105 mL/min (>60); Glucose 93 mg/dL (74-106); Potassium 3.7 mmol/L (3.5-5.1); Sodium Level 147 mmol/L (136-145)
== END ==
PROVIDERS: Family Provider Family Medicine Geriatric Medicine; PCP Family Medicine Geriatric Medicine; Visit Provider Physician Assistant Medical
DX: I48.0 Paroxysmal atrial fibrillation (principal)
CPT/HCPCS: 36415; 80048

== ENCOUNTER 2018-08-06 19:21 | Emergency (ER) | payer MEDICAID, SELFPAY ==
[2018-08-06 19:22] VITALS: BP 155/88; PULSE 120; RESP 18; TEMP 36.3; O2SAT 97; BMI 39.8
[2018-08-06 19:30] VITALS: O2SAT 94
[2018-08-06 19:47] VITALS: BP 137/82; PULSE 110; RESP 21; O2SAT 98
--- NOTE | 2018-08-06 19:47 | ED.VISSUMM ---
- ER Visit Summary Date of Service: 08/06/18 Chief Complaint: Cough History of Present Illness: The patient is a 62 F history of hypertension, A. fib and known alcoholic cirrhosis. She is on anticoagulation. Patient states she had 3-day history since Thursday mild sore throat and a cough sometimes productive of yellowish to green sputum. No hemoptysis. No chest pain other than with coughing. Low-grade fever of 100. No significant shortness of breath. Patient was on a course of antibiotics earlier this month for sinusitis. Physical Examination: Well-appearing older female. Vital signs are stable. Afebrile. Pulse ox 97% on room air. H EENT exam posterior pharynx no erythema or exudate. No trouble swallowing or breathing. No stridor or drooling. TMs normal. She has a mild nasal congestion. No purulent discharge. No sinus tenderness. Neck nontender trachea midline. No lymph. Lungs no rales or rhonchi. Few scattered expiratory wheezes. Equal and symmetrical. Heart regular rhythm rate about 100 no murmur. Abdomen obese but soft nontender. Normal bowel sounds. Test Results: Medically the patient does not need a chest x-ray I discussed that with her and she deferred having one done. Emergency Department Course and Treatment: Exam is consistent with a viral URI. Treatment Plan: Fluids and rest. Motrin as needed. Return to the ER follow-up with her doctor if not improving. Disposition: Discharge Impression: Acute viral bronchitis This note was generated with [employer] dictation software. It may contain incorrect words, spelling, and punctuation that were not noted in review of the chart prior to signing ED Disposition - Plan for ED Patient: Chief Complaint: Cough Referrals: Osiel Grimaldo Chi, MD [Primary Care Provider] -
--- NOTE | 2018-08-06 19:50 | ED.DEP ---
ED Disposition - Plan for ED Patient: Disposition: Home or Assisted Living Chief Complaint: Cough Instructions: ED URI Viral Referrals: Osiel Grimaldo Chi, MD [Primary Care Provider] - 10-14 Days if not better Additional Instructions: Plenty of fluids and rest. Motrin as needed. Return if feeling worse or follow-up with your doctor.
== END 2018-08-06 19:57 | disposition home or self-care (01) ==
PROVIDERS: Emergency Provider Emergency Medicine; Family Provider Family Medicine Geriatric Medicine; PCP Family Medicine Geriatric Medicine
DX: J20.8 Acute bronchitis due to other specified organisms (principal); J06.9 Acute upper respiratory infection, unspecified; R19.7 Diarrhea, unspecified; I10 Essential (primary) hypertension; I48.91 Unspecified atrial fibrillation; K70.30 Alcoholic cirrhosis of liver without ascites; F41.9 Anxiety disorder, unspecified; Z90.49 Acquired absence of other specified parts of digestive tract; Z79.01 Long term (current) use of anticoagulants; Z79.899 Other long term (current) drug therapy
CPT/HCPCS: 99282

== ENCOUNTER → 2018-08-17 17:55 | Outpatient (CLI) | payer MEDICAID, SELFPAY | PROVIDERS: Family Provider Family Medicine Geriatric Medicine; PCP Family Medicine Geriatric Medicine; Referring Provider Family Medicine Geriatric Medicine; Visit Provider Family Medicine Geriatric Medicine | DX: R68.83 Chills (without fever) (principal); M48.061 Spinal stenosis, lumbar region without neurogenic claudication; M51.36 Other intervertebral disc degeneration, lumbar region; M46.96 Unspecified inflammatory spondylopathy, lumbar region; M54.16 Radiculopathy, lumbar region; M79.10 Myalgia, unspecified site; M47.817 Spondylosis without myelopathy or radiculopathy, lumbosacral region; M25.511 Pain in right shoulder | CPT/HCPCS: 87633; 97162 ==

== ENCOUNTER → 2018-08-26 09:58 | Outpatient (CLI) | payer MEDICAID, SELFPAY ==
--- NOTE | 2018-08-26 10:00 | BI_ITS ---
MAMMOGRAPHY - BILATERAL SCREENING REASON FOR EXAM: Female, 62 years old. Routine annual screening examination. PERTINENT HISTORY: Mother with breast cancer. TECHNIQUE: Digital bilateral breast krystyna (3D mammographic acquisition) in the CC and MLO projections. 2-D mediolateral oblique (MLO) and craniocaudad (CC) views of both breasts were obtained. CAD: Full Field Digital Mammography with Computer Added Detection was performed. COMPARISON: Comparison is made with prior study dated November 03, 2014. FINDINGS: Breast Composition: The breasts are almost entirely fatty. There are no dominant masses or suspicious calcifications. No other significant abnormalities are identified. There has been no significant change since the prior study. BI/SCREENING MAMM (CAD), BILAT IMPRESSION: Stable bilateral screening mammogram. Yearly follow-up mammogram recommended. (A) ASSESSMENT CATEGORY: BIRADS Category 1: Negative. A letter regarding these results will be sent to the patient by the facility within 30 days. Approximately 10% of breast cancers are not detected by mammography. A normal mammogram should not delay biopsy of a clinically suspicious abnormality. [id number] Electronically Signed: Dwight Ledbetter MD at 11:36 EDT Tel [phone], Service support ,
== END ==
PROVIDERS: Family Provider Family Medicine Geriatric Medicine; PCP Family Medicine Geriatric Medicine; Visit Provider Family Medicine Geriatric Medicine
DX: Z12.31 Encounter for screening mammogram for malignant neoplasm of breast (principal)
CPT/HCPCS: 77063; 77067

== ENCOUNTER 2018-09-09 11:00 | Outpatient (RCR) | payer MEDICAID, SELFPAY ==
--- NOTE | 2018-08-17 13:23 | HP.PTEVAL_ITS ---
Patient's Visit Information RUDY MICHELE is a 62 year old F referred to Physical Therapy by CAROLINE Winn with a diagnosis of DDD L/S Lumbar arthropathy, R shoulder pain. Date of Evaluation: 08/17/18 Physical Therapist: Abran Cagle DPT, [place] - Visit Plan Frequency: 2x /Week Duration: 4-6 Weeks Plan: 2x/week for 4-6 for aquatic therapy for posture, R shoulder RC strength, NS core strength and hip strength especially abd and ext. Progress to I as patient is a member at the [employer]. - Subjective Subjective: [place] my boyfirend. Bad pain in back for years. It gets worse as I get older. Fell a couple times which doesn't help. Pain is LB and mid back. R shoulder hurts anteriorly for 8 months after fall. Unsure of the reason for the falls. Has walker and cane and zimmer tart using them. No numbness except maybe sometime in R shoulder. Gets unsteady at times ut not spinning. Shoulder hurts to push to stand. Sleep is OK at home. Not employed. Can't due to pain. Spends day sitting and watching TV and reading. Lives apartment and does stuff around the apartment but typically gets worse with sweep adn mopping, feels much better sitting down. Dresses self and bathes self. Exercises: no - Pain LBP Pain Intensity (Out of 10): 9 Pain Intensity Range: 6, 9 R shoulder Pain Intensity (Out of 10): 0 Pain Intensity Range: 0, 7 Comment: comfy at rest - Objective Walks I but slow and large L trendelenberg. Needs UE to transfer out of chair and is obese. Balance is not bad but fatigues easily. Steps reciprocal needs two rails today. LE AROM WFL, strength at 4-/5 without pain in knees and ankles and 3+ in hips without pain. reflexes 2/3 patella and achilels and sensation WNL to gross light touch. coordination to reciprocal toe tap is WFL. UE AROM R shoulder painful, tender to touch supraspinatus, weak ext rotationa nd painful 3+, int rot4-, flex/abd 3 and painful. Sensation UE WNL to gross light touch. + R muñoz quynh and neer impingement test. Posture is forward head and shoulderblades. C/S AROM WFL and painfree. LB AROM limited and painful in ext moderately, Good flexion and fair SB without pain today. - Balance Scores Functional Gait Assessment Score: 24 % Disability: 20.0000 - Goals Goal 1:: Elevate R shoulder without pain or hesitation Goal Time Frame: 4-6 Weeks Goal 2:: Walk or stand 30 minutes withotu increased pain Goal Time Frame: 4-6 Weeks Goal 3:: I approp HEP to minimize future problems and manage discomfort Goal Time Frame: 4-6 Weeks - Rehabilitation Potential Physical Therapy Diagnosis: Degenerative changes in LB, wekaness in hips and R shoulder impiongement. Rehabilitation Potential: Fair - Anticipated Interventions Patient/Client Instruction: Educate patient on: Condition, Plan of Care For the Purpose of:: To decrease pain, To increase tolerance to activity/condition/position Therapeutic Exercise to Include: Strength training, In an aquatic setting, Dynamic Lumbar Stabilization, Scapular Strength/Stabilization For the Purpose of:: To decrease pain, To increase tolerance to activity/condition/position Thank you for the opportunity to evaluate your patient. For Medicare and Medicare HMO plans, please review the plan of care and approve it. It will need to be FAXED BACK to us at [phone] for Medicare purposes. Please let me know if there are questions or concerns regarding this plan of care. Physician Signature: Date:
--- NOTE | 2018-10-28 10:02 | HP.PTDCNRP_ITS ---
HP - Discharge Summary (1) - Patient Information RUDY MICHELE was seen in my office for initial evaluation on 08/17/18. The following Plan of Care was established for this patient: Initial Frequency: 2x /Week Initial Duration: 4-6 Weeks - Anticipated Interventions Patient/Client Instruction: Educate patient on: Condition, Plan of Care For the Purpose of:: To decrease pain, To increase tolerance to activi ty/condition/position Therapeutic Exercise to Include: Strength training, In an aquatic setting, Dynamic Lumbar Stabilization, Scapular Strength/Stabilization For the Purpose of:: To decrease pain, To increase tolerance to activity/condition/position This patient was last seen in our office 09/09/18. Pertinent comments regarding their Physical therapy will appear below: Pt seen 3 visits of plan of care adn then no showed ro cancelled for 5 visits neglecting to reschedule any of them. At this oint, it has been over 6 weeks adn Iw ill discontinue due to nonattendance. At this point I will be discontinuing this patient from physical therapy. I would be happy to see this patient again in the future if found appropriate by the physician. Thank you! Abran Cagle, DPT, OCS, CSCS
== END 2018-09-09 19:00 | disposition home or self-care (01) ==
LOC: PT 11:00
PROVIDERS: Family Provider Family Medicine Geriatric Medicine; PCP Family Medicine Geriatric Medicine; Referring Provider Nurse Practitioner Family; Visit Provider Nurse Practitioner Family
DX: M48.061 Spinal stenosis, lumbar region without neurogenic claudication (principal); M51.36 Other intervertebral disc degeneration, lumbar region; M46.96 Unspecified inflammatory spondylopathy, lumbar region; M54.16 Radiculopathy, lumbar region; M79.10 Myalgia, unspecified site; M47.817 Spondylosis without myelopathy or radiculopathy, lumbosacral region; M25.511 Pain in right shoulder
CPT/HCPCS: 97113; 97162

== ENCOUNTER → 2018-09-24 11:39 | Outpatient (CLI) | payer MEDICAID, SELFPAY | LOC: POLAB3 11:39 → PSN 12:52 | PROVIDERS: Family Provider Family Medicine Geriatric Medicine; PCP Family Medicine Geriatric Medicine; Referring Provider Family Medicine Geriatric Medicine; Visit Provider Family Medicine Geriatric Medicine | DX: R68.83 Chills (without fever) (principal); N39.0 Urinary tract infection, site not specified | CPT/HCPCS: 87086; 87088; 87633 ==

== ENCOUNTER 2018-09-27 06:55 | Day surgery (SDC) | payer MEDICAID, SELFPAY ==
[2018-09-07 14:33] VITALS: BMI 41.3
[2018-09-27 07:32] VITALS: BP 129/81; PULSE 88; RESP 16; TEMP 36.7; O2SAT 94; BMI 42.0
--- NOTE | 2018-09-27 08:00 | RAD_ITS ---
STUDY: X-RAY - LUMBAR SPINE REASON FOR EXAM: Female, 63 years old. Left L3-S1 radiofrequency ablation. TECHNIQUE: 11 coned-down images of the lumbar spine were obtained were obtained intraoperatively. COMPARISON: None FINDINGS: Intraoperative fluoroscopic services provided for left L3-S1 radiofrequency ablation. RAD/L/S Spine Min 4 Views IMPRESSION: Intraoperative imaging provided for left L3 S1 radiofrequency ablation. Electronically Signed: Dwight Ledbetter MD at 12:37 EST Tel [phone], Service support ,
[2018-09-27] MEDS: Bupivacaine 0.5% PF 10 ML VIAL (08:22)
[2018-09-27] MEDS: MethylPREDNISolone Acetate 80 MG/ML Vial (08:23)
[2018-09-27 08:35] VITALS: BP 129/81; BP 133/88; PULSE 87; RESP 16; TEMP 36.2; O2SAT 98
[2018-09-27 08:40] VITALS: BP 122/88; BP 129/81; PULSE 83; RESP 16; O2SAT 95
[2018-09-27 08:45] VITALS: BP 129/81; BP 141/95; PULSE 97; RESP 16; O2SAT 95
[2018-09-27 08:50] VITALS: BP 129/81; BP 132/95; PULSE 90; RESP 16; TEMP 36.6; O2SAT 96
[2018-09-27 09:12] VITALS: BP 129/81
--- NOTE | 2018-09-27 09:50 | PCM.OPRPT ---
Problem List (1) Degeneration of lumbosacral intervertebral disc Status: Chronic (2) Lumbosacral spondylosis Status: Chronic Report of Operation Date of Procedure: 09/27/18 Pre-Operative Diagnosis: Lumbosacral spondylosis, lumbosacral degenerative disc disease, lumbar facet arthropathy Post-Operative Diagnosis: Lumbosacral spondylosis, lumbosacral degenerative disc disease, lumbar facet arthropathy Surgery/Procedure Performed:: Left-sided lumbar radiofrequency ablation of the medial branch at L3, L4, L5, S1 Description of Surgical Findings:: PROCEDURE: Left-sided radiofrequency ablation of the medial branch L3, L4, L5, S1 PREOPERATIVE DIAGNOSES: Lumbosacral spondylosis, lumbosacral degenerative disc disease, lumbar facet arthropathy POSTOPERATIVE DIAGNOSES: Lumbosacral spondylosis, lumbosacral degenerative disc disease, lumbar facet arthropathy ANESTHESIA: MAC COMPLICATIONS: None BLOOD LOSS: Minimal PROCEDURE IN DETAIL: History and physical today was reviewed. Risks and benefits of procedure explained. The patient understood, agreed to the procedure and informed consent was obtained. IV inserted per routine protocol. The patient was taken to the operating room, placed in the prone position with a pillow positioned underneath the abdomen. The left side of the lower back was prepped and draped in a sterile fashion using iodine x 3. Under fluoroscopy guidance, on an oblique view, the L3 through S1 vertebral bodies were visualized. The skin and subcutaneous tissue was anesthetized with approximately 10 mL of 1% lidocaine using a 25-gauge regular needle. Under direct visualization with fluoroscopy at approximately 25-degree angle, starting on the left L3, ending on the left S1 passing through the L4-L5 using a 20-gauge 15 cm with a 10 mm curved active tip radiofrequency ablation needle, the needle passed through the skin, The tip of the needle was maneuvered and directed towards the superior and medial gutter of the transverse process at the vicinity of the medial branch. Once the tip of the needle was in contact with the bone, the needle pulled approximately 2 mm up the bone. The stylet of each needle was then removed. After negative aspiration of blood with CSF and confirmation of AP as well as oblique view, radiofrequency ablation probe was then inserted at each level. Impedance was then recorded at L3 to be 298, at L4 240, at L5 298, at S1 310 ohm. Motor-evoked potential was then initiated to 1.5 volt without any motor response at each corresponding level. The probe was then removed intact and a total of 6 mL preservative-free 1% lidocaine was injected in divided doses between those 4 levels after negative aspiration of blood with CSF. The radiofrequency ablation probe was then reinserted after confirmation of AP, oblique as well as lateral view. Radiofrequency ablation was then initiated to 80 degrees Celsius for 90 seconds at each level. Once concluded, the probe was then removed intact and a total of 6 mL of preservative-free 0.25% Marcaine with 40 mg Depo-Medrol was injected in divided doses between those 4 levels. The needles were then removed intact. The patient experienced no signs or symptoms of intrathecal, intravascular injection. The patient experienced no paraesthesia. The procedure was completed without any apparent difficulty, any complication. The patient appeared to tolerate well. Sensory as well as motor exam was unchanged from prior to procedure. ASSESSMENT AND PLAN: This is a 63-year-old female with lumbosacral spondylosis, lumbosacral degenerative disc disease, lumbar facet arthropathy, status post left-sided radiofrequency ablation of the medial branch L3 through S1. The patient will continue her current medications. The patient will follow up in approximately 2 weeks for reevaluation.
== END 2018-09-27 09:25 | disposition home or self-care (01) ==
LOC: SDC 06:56 → AC 06:56
PROVIDERS: Family Provider Family Medicine Geriatric Medicine; PCP Family Medicine Geriatric Medicine; Referring Provider Anesthesiology Pain Medicine; Visit Provider Anesthesiology Pain Medicine
PROC: (CPT 64635; principal; 2018-09-27 08:05)
DX: M47.817 Spondylosis without myelopathy or radiculopathy, lumbosacral region (principal); M51.37 Other intervertebral disc degeneration, lumbosacral region; M46.96 Unspecified inflammatory spondylopathy, lumbar region; I48.91 Unspecified atrial fibrillation; I10 Essential (primary) hypertension; G43.909 Migraine, unspecified, not intractable, without status migrainosus; K50.90 Crohn's disease, unspecified, without complications; K21.9 Gastro-esophageal reflux disease without esophagitis; K74.60 Unspecified cirrhosis of liver; F32.9 Major depressive disorder, single episode, unspecified; Z87.19 Personal history of other diseases of the digestive system; Z78.0 Asymptomatic menopausal state; Z79.899 Other long term (current) drug therapy; Z87.891 Personal history of nicotine dependence
CPT/HCPCS: 64635; 64636 ×3; 72110; 76000; J7120; J3490

== ENCOUNTER 2018-10-27 16:19 | Observation (INO) | payer MEDICAID, SELFPAY ==
[2018-10-27] VITALS (7 sets, daily range): BP systolic 129–159; BP diastolic 75–105; PULSE 84–106; RESP 14–18; TEMP 36.1–37.1; O2SAT 95; BMI 40.8; BMI 40.9
--- NOTE | 2018-10-27 16:49 | EKG12_ITS ---
Test Reason : CHRONIC A-FIB Blood Pressure : / mmHG Vent. Rate : 102 BPM Atrial Rate : 115 BPM P-R Int : 000 ms QRS Dur : 084 ms QT Int : 336 ms P-R-T Axes : 000 002 -06 degrees QTc Int : 437 ms Atrial fibrillation with rapid ventricular response ST & T wave abnormality, consider anterolateral ischemia Abnormal ECG Confirmed by ESTRELLITA FERNANDEZ, SATURNINO ([id number]), editorial clerk ABI CRAIG ([id number] on 10/29/2018 1:59:56 PM Referred By: Chelsie Tripp Confirmed By:SATURNINO HARO MD
--- NOTE | 2018-10-27 16:50 | RAD_ITS ---
STUDY: X-RAY - RIGHT SHOULDER REASON FOR EXAM: Female, 63 years old. Pain, decreased range of motion TECHNIQUE: 4 view(s) of the shoulder. COMPARISON: None. FINDINGS: There is mild degenerative arthrosis of the glenohumeral articulation. There is degenerative arthrosis of the acromioclavicular joint without inferior osseous spur formation. Normal acromion. Normal humeral head and visualized proximal humerus. The soft tissue structures are unremarkable. Normal visualized pulmonary apex. RAD/Shoulder min 2 Views IMPRESSION: Arthrosis Electronically Signed: Augie Bosch MD at 19:27 EST , Service support ,
--- NOTE | 2018-10-27 16:50 | CT_ITS ---
STUDY: CT ABDOMEN AND PELVIS WITH CONTRAST REASON FOR EXAM: Female, 63 years old. Hypertension, elevated LFTs RADIATION DOSAGE (If Supplied By Facility): CTDIvol = ( 18.74 ) mGy, DLP = ( 1380.94 ) mGycm TECHNIQUE: Transaxial images were obtained from the dome of the diaphragm to the symphysis pubis with oral contrast. 100ML ml of Isovue 300 contrast was administered. Sagittal and coronal images were reconstructed. Individualized dose optimization techniques were used for this CT. COMPARISON: 2014 FINDINGS: There are chronic interstitial fibrotic changes of the lung bases. The visualized portions of the heart are within normal limits. Normal liver. There has likely been a previous cholecystectomy Normal spleen. Normal pancreas. Normal bilateral adrenal glands. Age consistent cortical thinning in both kidneys with 2 cm right renal cyst. Normal visualized stomach. Normal small intestine. There are multiple colonic diverticula consistent with diverticulosis. The appendix is visualized and appears normal. Appendix best seen on coronal recon images 57 through 60 There is diffuse atherosclerotic calcification of the abdominal aorta, without a demonstrated aneurysm. Normal inferior vena cava. Normal retroperitoneum. Normal urinary bladder. There is absence of the uterus consistent with a prior hysterectomy. There is a small umbilical hernia containing fat. Calcifications noted within the gluteal fat likely injection granulomas. There are diffuse degenerative changes of the visualized lumbar spine, and pelvis. CT/Abdomen/Pelvis WITH Contrast IMPRESSION: No suspicious solid organ abnormality, age consistent changes in both kidneys with a simple 2 cm right renal cyst. No CT evidence of an acute inflammatory process, normal appendix visualized. Degenerative bony changes Electronically Signed: Augie Bosch MD at 19:10 EST , Service support ,
--- NOTE | 2018-10-27 16:58 | ED.DCSUM_ITS ---
- ER Visit Summary Date of Service: 10/27/18 Chief Complaint: Vomiting, diarrhea History of Present Illness: The patient is a 63 F presenting with vomiting, diarrhea. This started today. She has had several episodes of both vomiting and diarrhea. She denies blood in her stool or emesis. Denies possibility of bad food exposure, no recent antibiotics, no recent travel. She states she feels dizzy with standing. She fell when trying to go the bathroom and has pain in her right upper extremity. She did not hit her head or lose consciousness. Denies other complaints. She is on Eliquis for history of A. fib. Physical Examination: Vitals are stable. Patient is afebrile. Alert no acute distress. HEENT exam dry mucous membranes Neck is supple. Lungs are clear and equal bilaterally. Heart is regular rate and rhythm. Abdomen is soft mild diffuse lower tenderness, no guarding or rebound Extremities right anterior shoulder tenderness, active full range of motion Skin is warm and dry. No focal neurologic deficit. Remainder of exam is unremarkable. Emergency Department Course and Treatment: Patient given IV fluids, Zofran. EKG is A. fib rate of 102. X-ray of the right shoulder and humerus show no fracture. CBC, chemistries unremarkable. Alk phos 129. Lipase 53. Troponin is negative. Patient continues to be dizzy with standing and trying to ambulate to the bathroom. CT abdomen pelvis shows no acute process. Discussed with the hospitalist for observation. Disposition: Observation Impression: Gastroenteritis, dehydration, right shoulder contusion s/p fall This note was generated with [employer] dictation software. It may contain incorrect words, spelling, and punctuation that were not noted in review of the chart prior to signing ED Disposition - Plan for ED Patient: Chief Complaint: Nausea/Vomiting Referrals: Osiel Grimaldo Chi, MD [Primary Care Provider] -
[2018-10-27] MEDS: Ondansetron 4 MG/2 ML Vial IV (17:03)
[2018-10-27] MEDS: 0.9% Normal Saline 1,000 ML 1000 ML IV (17:03)
[2018-10-27 17:17] LABS: Absolute Lymphocyte Count 1.67 X10^3/ul (0.83-4.51); Absolute Neutrophil Count 6.4 X10^3/uL (2.0-7.7); Basophil# 0.02 X10^3/uL; Basophil% 0.2 % (0-1); Eosinophil# 0.34 X10^3/uL; Eosinophils% 3.8 % (0-5); Hematocrit 42.1 % (37-47); Hemoglobin 13.2 g/dl (12.0-15.0); Lymphocyte # 1.67 X10^3/ul (4.0); Lymphocyte % 18.5 % (19-41); Mean Corp Hgb Conc 31.4 g/gl (32-36); Mean Corpuscular Hgb 28.7 pg (27.0-32.0); Mean Corpuscular Volume 91.5 fL (81-99); Mean Platelet Vol. 10.1 fl (6.2-12.0); Monocyte# 0.51 X10^3/uL; Monocyte% 5.7 % (0-10); Neutrophil # 6.44 X10^3/uL (2.7-7.7); Neutrophil % 71.4 % (47-70); Platelet Count 266 K/mm3 (150-450); RBC Distribution Width CV 14.8 % (11.6-14.6); RBC Distribution Width SD 49.4 fl (35.1-43.9)
[2018-10-27 17:22] LABS: POSITIVE COUNT NO; POSITIVE DIFFERENTIAL NO; POSITIVE MORPHOLOGY NO
[2018-10-27 17:39] LABS: AST(SGOT) 23 U/L (15-37); Alanine Aminotransfer ALT/SGPT 48 U/L (13-56); Albumin, Serum 3.6 g/dL (3.2-5.0); Alkaline Phosphatase 129 U/L (45-117); Anion Gap 7 (5-15); BUN 16 mg/dL (7-18); BUN/Creat Ratio 22.9 RATIO (10-20); Bilirubin, Direct 0.26 mg/dL (0.00-0.30); Calcium,Total 8.9 mg/dL (8.5-10.1); Chloride 105 mmol/L (98-107); EST Glomerular Filtration Rate 90 mL/min (>60); Est Glom Filt Rate - Afr Amer 108 mL/min (>60); Globulin 3.5 g/dL (2.2-4.2); Glucose 107 mg/dL (74-106); Lipase 53 U/L (73-393); Potassium 3.5 mmol/L (3.5-5.1); Protein, Total 7.1 g/dL (6.4-8.2); Sodium Level 143 mmol/L (136-145)
[2018-10-27 18:20] LABS: Bacteria 0 SEEN /hpf (None Seen); Mucous, Urine 0 SEEN /hpf (<or=2+); Red Blood Cells-Urine 0 SEEN /hpf (0-5); Squamous Epithelial Cells - UA 0 SEEN /hpf (5-10); White Blood Cells 0 SEEN /hpf (0-5)
[2018-10-27 18:32] LABS: Color, Urine Yellow (Yellow); Glucose, Dipstick Normal (Normal); Ketone-Dipstick Negative (Negative); Leukocyte Esterase-Dipstick Negative /ul (Negative); Nitrite-Dipstick Negative (Negative); Occult Blood-Urine Negative /ul (Negative); Protein-Dipstick Negative (Negative); Urine Bilirubin Dipstick Negative (Negative); Urine Clarity Clear (Clear); Urine Urobilinogen Normal (Normal)
--- NOTE | 2018-10-27 19:07 | RAD_ITS ---
STUDY: X-RAY - RIGHT HUMERUS REASON FOR EXAM: Female, 63 years old. Pain after trauma TECHNIQUE: 3 view(s) of the humerus. COMPARISON: None. FINDINGS: Normal visualized humerus. There is no demonstrated fracture or osseous destructive process. There is no demonstrated soft tissue abnormality. RAD/Humerus min 2 Views IMPRESSION: Normal x-ray examination of the humerus. Electronically Signed: Augie Bosch MD at 19:26 EST , Service support ,
--- NOTE | 2018-10-27 21:20 | PCM.HP.STD ---
History of Present Illness Date of Admission: 10/27/18 Chief Complaint: Diarrhea vomiting of one days duration The patient is a 63 year old F with an extensive past medical history as listed below. She was admitted through the ED on 10/27/2018 with complaint of nausea, vomiting and diarrhea which started yesterday. She remembers she ate scrambled eggs and pizza yesterday and she had other family members see the same. She started having severe nausea and vomiting as well as diarrhea. She vomited about 12 times from yesterday until today and has had 4 episodes of watery nonbloody diarrhea. She denied any fever or chills, cough or chest pain but admitted to palpitations due to A. fib. She also complained of dizziness due to the excessive vomiting and diarrhea and states she tripped and fell when she was going to the bathroom and hit her left shoulder. She denied any abdominal pain or frequency with urination. She came to the ED where vitals were significant for elevated blood pressure of 145/103 at time of review. Labs are essentially unremarkable. Lipase was 53. Troponin was negative and CBC was unremarkable. EKG showed A. fib with heart rate of 102. CT of the abdomen and pelvis showed no acute process. She is been admitted to be managed for gastroenteritis and right shoulder contusion which she sustained after she fell on account of dizziness. [] Past Medical History Past Medical History (Chronic Problems): Chronic Problems (Last Updated 04/29/18 @ 15:18 by Cee Mcnulty DO) History of MRSA infection (Chronic) Paroxysmal atrial fibrillation (Chronic) Atrial fibrillation and flutter (Chronic) Palpitations (Chronic) Diabetes mellitus (Chronic) Degeneration of lumbosacral intervertebral disc (Chronic) Lumbosacral spondylosis (Chronic) History of left heart catheterization (Chronic ~01/2014) 01/2013, 01/2014 COPD (chronic obstructive pulmonary disease) (Chronic) Bilateral lower extremity edema (Chronic) Morbid obesity with BMI of 45.0-49.9, adult (Chronic) Non-alcoholic cirrhosis (Chronic) GERD (gastroesophageal reflux disease) (Chronic) Hypertension (Chronic) LUIS (obstructive sleep apnea) (Chronic) Tremor (Chronic) Anxiety (Chronic) Medical History: Medical History (Last Updated 04/29/18 @ 15:18 by Cee Mcnulty DO) Palpitations (Chronic) R00.2 COPD (chronic obstructive pulmonary disease) (Chronic) J44.9 Bilateral lower extremity edema (Chronic) R60.0 Morbid obesity with BMI of 45.0-49.9, adult (Chronic) E66.01, Z68.42 Non-alcoholic cirrhosis (Chronic) GERD (gastroesophageal reflux disease) (Chronic) K21.9 Hypertension (Chronic) I10 LUIS (obstructive sleep apnea) (Chronic) G47.33 Tremor (Chronic) R25.1 Anxiety (Chronic) F41.9 Dizziness and giddiness R42 Edema R60.9 Shortness of breath R06.02 History of hysterectomy Z90.710 Blister (nonthermal), left knee, initial encounter (Inactive) S80.222A Chest pain (Inactive) R07.9 Allergies morphine Allergy (Verified 10/27/18 16:20) Itching nifedipine [From Procardia] Adverse Reaction (Verified 10/27/18 16:20) Other elevates bp Home Medications: Ambulatory Orders Medication Instructions Recorded Furosemide 40 mg PO BID 02/05/16 fluoxetine 40 mg capsule 40 mg PO DAILY 12/29/17 apixaban 5 mg tablet 5 mg PO BID tab 07/21/18 trazodone 100 mg tablet 100 mg PO QHS 30 Days #30 07/21/18 diltiazem CD 240 mg 240 mg PO DAILY #90 cap 08/05/18 capsule,extended release 24 hr Lamotrigine [Lamictal] 100 mg PO DAILY 08/06/18 cholecalciferol (vitamin D3) 50,000 unit PO LUDWIG 30 Days #4 cap 09/07/18 50,000 unit capsule gabapentin 600 mg tablet 600 mg PO BID 30 Days #30 tab 09/07/18 Ascorbic Acid [Vitamin C] 1,500 mg PO DAILY 10/27/18 Baclofen 10 mg PO TID 10/27/18 Lorazepam [Ativan] 1 mg PO BID 10/27/18 Metoprolol Tartrate 75 mg PO BID 10/27/18 Oxybutynin Chloride 10 mg PO BID 10/27/18 Potassium Chloride [Klor-Con M20] 40 meq PO BID 10/27/18 Simvastatin 40 mg PO DAILY 10/27/18 Surgical History: Surgical History (Last Updated 03/31/18 @ 10:24 by John Braswell) History of left heart catheterization (Chronic) Onset Date: ~01/2014 Z98.890 01/2013, 01/2014 History of carpal tunnel release Z98.890 History of carpal tunnel release of both wrists Z98.890 History of tonsillectomy and adenoidectomy Z98.890 History of total left knee replacement (TKR) Z96.652 History of total right knee replacement (TKR) Z96.651 Hx of cholecystectomy Z90.49 vaginal fistula repair Surgical History: - - T+A, Cholecystectomy, Hysterectomy, Vaginal fistula repairs, L TKR, Bunion/hammertoe RLE, Carpal tunnel BL. 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 Denies: Chills, Fever, Weight Change Eyes: Denies: Blurred vision HEENT: Denies: Head Aches, Sinus Congestion, Sinus Drainage Cardiovascular: Reports: Palpitations. Denies: Chest Pain, Chest Tightness, Heaviness, Orthopnea, Syncope Respiratory: Denies: Cough, Shortness of Breath, Shortness of breath at rest, Sputum production Gastrointestinal: Reports: Abdominal Pain, Diarrhea, Nausea, Vomiting. Denies: Constipation Genitourinary: Denies: Dysuria Musculoskeletal: Reports: Joint Pain - shoulder pain. Denies: Joint Tenderness Skin: Denies: Rash, Wounds Neurological: Denies: Numbness, Tingling, Focal weakness Psychiatric: Denies: Anxiety, Depression, Homicidal Ideations, Suicidal Ideations Hematologic/ Lymphatic: Denies: Easy Bruising, Easy Bleeding VTE Information - Inpt Only VTE Present on Admission: No VTE Pharm Prophylaxis ordered?: Yes - Physical Exam General: Alert, Oriented x3, Cooperative HEENT: Atraumatic, PERRLA, EOMI, Normocephalic Oral: Dry Mucosa Neck: Supple, No JVD, Negative Carotid Bruits Lungs: Clear to auscultation, Normal air movement, No rhonchi, No wheeze, No rales Cardiovascular: Normal S1, Normal S2, No murmurs, Irregular Rate, Tachycardic Abdomen: Bowel Sounds Present, Soft, Non Tender, Non-Distended, No Hepato-splenomegaly, Passing Flatus Extremities: No clubbing, No cyanosis, No edema, Capillary Refill Less than 3 Seconds Skin: No rashes, No breakdown Musculoskeletal: No Tenderness to Palpation of Joints or Extremities Lymphatic: No Cervical, Supraclavicular, or Inguinal Adenopathy Neurological: Cranial nerves II-XII grossly intact, Neuro grossly intact, Motor Exam 5/5 strength throughout Psych/Mental Status: Normal Affect, Appropriate, Alert and oriented to time, place, person, mood and affect Vital Signs Temp Pulse Resp BP Pulse Ox 97 F L 86 16 145/103 H 95 10/27/18 16:21 10/27/18 21:02 10/27/18 21:02 10/27/18 21:02 10/27/18 16:21 Oxygen Delivery Method Room Air Weight: 268 lb 11.896 oz Body Mass Index (BMI) 40.8 Laboratory Tests Past 24 Hrs 10/27/18 10/27/18 10/27/18 17:00 17:00 17:00 WBC 9.0 RBC 4.60 Hgb 13.2 Hct 42.1 MCV 91.5 MCH 28.7 MCHC 31.4 L RDW 14.8 H RDW Differential 49.4 H Plt Count 266 MPV 10.1 Immature Gran % (Auto) 0.400 Neut % (Auto) 71.4 H Lymph % (Auto) 18.5 L [place] % (Auto) 5.7 Eos % (Auto) 3.8 Baso % (Auto) 0.2 Absolute Neuts (auto) 6.4 Absolute Lymphs (auto) 1.67 Total Counted Not Reportable Sodium 143 Potassium 3.5 Chloride 105 Carbon Dioxide 31.0 Anion Gap 7 BUN 16 Creatinine 0.70 Estim Creat Clear Calc 81.90 Est GFR (MDRD) Af Amer 108 Est GFR (MDRD) Non-Af 90 BUN/Creatinine Ratio 22.9 H Glucose 107 H Calcium 8.9 Total Bilirubin 0.70 Direct Bilirubin 0.26 AST 23 ALT 48 Alkaline Phosphatase 129 H Troponin I < 0.015 Total Protein 7.1 Albumin 3.6 Globulin 3.5 Lipase 53 L Urine Color Urine Clarity Urine pH Ur Specific [place] Urine Protein Urine Glucose (UA) Urine Ketones Urine Occult Blood Urine Nitrite Urine Bilirubin Urine Urobilinogen Ur Leukocyte Esterase Urine RBC Urine WBC Ur Squamous Epith Cells Urine Bacteria Urine Mucus 10/27/18 18:00 WBC RBC Hgb Hct MCV MCH MCHC RDW RDW Differential Plt Count MPV Immature Gran % (Auto) Neut % (Auto) Lymph % (Auto) [place] % (Auto) Eos % (Auto) Baso % (Auto) Absolute Neuts (auto) Absolute Lymphs (auto) Total Counted Sodium Potassium Chloride Carbon Dioxide Anion Gap BUN Creatinine Estim Creat Clear Calc Est GFR (MDRD) Af Amer Est GFR (MDRD) Non-Af BUN/Creatinine Ratio Glucose Calcium Total Bilirubin Direct Bilirubin AST ALT Alkaline Phosphatase Troponin I Total Protein Albumin Globulin Lipase Urine Color Yellow Urine Clarity Clear Urine pH 7.0 Ur Specific [place] 1.010 Urine Protein Negative Urine Glucose (UA) Normal Urine Ketones Negative Urine Occult Blood Negative Urine Nitrite Negative Urine Bilirubin Negative Urine Urobilinogen Normal Ur Leukocyte Esterase Negative Urine RBC 0 SEEN Urine WBC 0 SEEN Ur Squamous Epith Cells 0 SEEN Urine Bacteria 0 SEEN Urine Mucus 0 SEEN Diagnostic Data Abdomen/Pelvis CT 10/27/18 16:50 IMPRESSION: No suspicious solid organ abnormality, age consistent changes in both kidneys with a simple 2 cm right renal cyst. No CT evidence of an acute inflammatory process, normal appendix visualized. Degenerative bony changes Electronically Signed: Augie Bosch MD at 19:10 EST , Service support , Shoulder X-Ray 10/27/18 16:50 IMPRESSION: Arthrosis Electronically Signed: Augie Bosch MD at 19:27 EST , Service support , Humerus X-Ray 10/27/18 19:07 IMPRESSION: Normal x-ray examination of the humerus. Electronically Signed: Augie Bosch MD at 19:26 EST , Service support , Assessment/Plan All Active Problems (Last Updated 04/29/18 @ 15:18 by Cee Mcnulty DO) Sinusitis (Acute) Hypokalemia (Acute) Acute exacerbation of chronic obstructive pulmonary disease (COPD) (Acute) Parainfluenza virus bronchopneumonia (Acute) Non-healing wound of lower extremity (Acute) Allergic reaction due to correct medicinal substance properly administered (Resolved) Atrial fibrillation with RVR (Resolved) CAP (community acquired pneumonia) (Resolved) Cellulitis of lower leg (Resolved) Influenza B (Resolved) Laceration of head (Resolved) Metabolic alkalosis (Resolved) Pneumonia (Resolved) Syncope and collapse (Resolved) [age]-year-old female presenting with a one day complaint of nausea, vomiting and diarrhea. 1. Gastroenteritis Has a 1 day history of nausea, vomiting and diarrhea after eating some scrambled eggs and some pizza. Admit to monitored bed in [facility] Hydrated with IV fluid normal saline. CBC and BMP were unremarkable. States she has had a history of C. difficile in the past and so we will check C. difficile to see if this is a recurrence. She denies being on any antibiotics recently. IV Zofran as needed for nausea. 2. A. fib Heart rate was in the 100s on admission. This is likely exacerbated by dehydration from the gastroenteritis. Will continue rate limiting medications. monitor HR per telemetry. on apizaban and cardizem and metoprolol 3. Right shoulder pain due to mechanical fall X-ray of the right shoulder was negative and x-ray of the right humerus was also negative. fall Precautions. Tylenol For pain 4. HyperLipidemia: On simvastatin 5. Hypertension: on metoprolol and furosemide 6. Depression: On trazodone and fluoxetine DVT prophylaxis: On apixaban CODE STATUS: Full code Patient counseled extensively about different types of CODE STATUS including full code, DNR CCA and DNR CCA. Patient elects to be full code. Total beqs-[id number] time 16 minutes. Code Visit OBSV E&M: 29047 Initial observation care L3
--- NOTE | 2018-10-27 21:27 | HP.PCM_ITS ---
History of Present Illness Date of Admission: 10/27/18 Chief Complaint: Diarrhea vomiting of one days duration The patient is a 63 year old F with an extensive past medical history as listed below. She was admitted through the ED on 10/27/2018 with complaint of nausea, vomiting and diarrhea which started yesterday. She remembers she ate scrambled eggs and pizza yesterday and she had other family members see the same. She started having severe nausea and vomiting as well as diarrhea. She vomited about 12 times from yesterday until today and has had 4 episodes of watery nonbloody diarrhea. She denied any fever or chills, cough or chest pain but admitted to palpitations due to A. fib. She also complained of dizziness due to the excessive vomiting and diarrhea and states she tripped and fell when she was going to the bathroom and hit her left shoulder. She denied any abdominal pain or frequency with urination. She came to the ED where vitals were significant for elevated blood pressure of 145/103 at time of review. Labs are essentially unremarkable. Lipase was 53. Troponin was negative and CBC was unremarkable. EKG showed A. fib with heart rate of 102. CT of the abdomen and pelvis showed no acute process. She is been admitted to be managed for gastroenteritis and right shoulder contusion which she sustained after she fell on account of dizziness. [] Past Medical History Past Medical History (Chronic Problems): Chronic Problems (Last Updated 04/29/18 @ 15:18 by Cee Mcnulty DO) History of MRSA infection (Chronic) Paroxysmal atrial fibrillation (Chronic) Atrial fibrillation and flutter (Chronic) Palpitations (Chronic) Diabetes mellitus (Chronic) Degeneration of lumbosacral intervertebral disc (Chronic) Lumbosacral spondylosis (Chronic) History of left heart catheterization (Chronic ~01/2014) 01/2013, 01/2014 COPD (chronic obstructive pulmonary disease) (Chronic) Bilateral lower extremity edema (Chronic) Morbid obesity with BMI of 45.0-49.9, adult (Chronic) Non-alcoholic cirrhosis (Chronic) GERD (gastroesophageal reflux disease) (Chronic) Hypertension (Chronic) LUIS (obstructive sleep apnea) (Chronic) Tremor (Chronic) Anxiety (Chronic) Medical History: Medical History (Last Updated 04/29/18 @ 15:18 by Cee Mcnulty DO) Palpitations (Chronic) R00.2 COPD (chronic obstructive pulmonary disease) (Chronic) J44.9 Bilateral lower extremity edema (Chronic) R60.0 Morbid obesity with BMI of 45.0-49.9, adult (Chronic) E66.01, Z68.42 Non-alcoholic cirrhosis (Chronic) GERD (gastroesophageal reflux disease) (Chronic) K21.9 Hypertension (Chronic) I10 LUIS (obstructive sleep apnea) (Chronic) G47.33 Tremor (Chronic) R25.1 Anxiety (Chronic) F41.9 Dizziness and giddiness R42 Edema R60.9 Shortness of breath R06.02 History of hysterectomy Z90.710 Blister (nonthermal), left knee, initial encounter (Inactive) S80.222A Chest pain (Inactive) R07.9 Allergies morphine Allergy (Verified 10/27/18 16:20) Itching nifedipine [From Procardia] Adverse Reaction (Verified 10/27/18 16:20) Other elevates bp Home Medications: Ambulatory Orders Medication Instructions Recorded Furosemide 40 mg PO BID 02/05/16 fluoxetine 40 mg capsule 40 mg PO DAILY 12/29/17 apixaban 5 mg tablet 5 mg PO BID tab 07/21/18 trazodone 100 mg tablet 100 mg PO QHS 30 Days #30 07/21/18 diltiazem CD 240 mg 240 mg PO DAILY #90 cap 08/05/18 capsule,extended release 24 hr Lamotrigine [Lamictal] 100 mg PO DAILY 08/06/18 cholecalciferol (vitamin D3) 50,000 unit PO LUDWIG 30 Days #4 cap 09/07/18 50,000 unit capsule gabapentin 600 mg tablet 600 mg PO BID 30 Days #30 tab 09/07/18 Ascorbic Acid [Vitamin C] 1,500 mg PO DAILY 10/27/18 Baclofen 10 mg PO TID 10/27/18 Lorazepam [Ativan] 1 mg PO BID 10/27/18 Metoprolol Tartrate 75 mg PO BID 10/27/18 Oxybutynin Chloride 10 mg PO BID 10/27/18 Potassium Chloride [Klor-Con M20] 40 meq PO BID 10/27/18 Simvastatin 40 mg PO DAILY 10/27/18 Surgical History: Surgical History (Last Updated 03/31/18 @ 10:24 by John Braswell) History of left heart catheterization (Chronic) Onset Date: ~01/2014 Z98.890 01/2013, 01/2014 History of carpal tunnel release Z98.890 History of carpal tunnel release of both wrists Z98.890 History of tonsillectomy and adenoidectomy Z98.890 History of total left knee replacement (TKR) Z96.652 History of total right knee replacement (TKR) Z96.651 Hx of cholecystectomy Z90.49 vaginal fistula repair Surgical History: - - T+A, Cholecystectomy, Hysterectomy, Vaginal fistula repairs, L TKR, Bunion/hammertoe RLE, Carpal tunnel BL. 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 Denies: Chills, Fever, Weight Change Eyes: Denies: Blurred vision HEENT: Denies: Head Aches, Sinus Congestion, Sinus Drainage Cardiovascular: Reports: Palpitations. Denies: Chest Pain, Chest Tightness, Heaviness, Orthopnea, Syncope Respiratory: Denies: Cough, Shortness of Breath, Shortness of breath at rest, Sputum production Gastrointestinal: Reports: Abdominal Pain, Diarrhea, Nausea, Vomiting. Denies: Constipation Genitourinary: Denies: Dysuria Musculoskeletal: Reports: Joint Pain - shoulder pain. Denies: Joint Tenderness Skin: Denies: Rash, Wounds Neurological: Denies: Numbness, Tingling, Focal weakness Psychiatric: Denies: Anxiety, Depression, Homicidal Ideations, Suicidal Ideations Hematologic/ Lymphatic: Denies: Easy Bruising, Easy Bleeding VTE Information - Inpt Only VTE Present on Admission: No VTE Pharm Prophylaxis ordered?: Yes - Physical Exam General: Alert, Oriented x3, Cooperative HEENT: Atraumatic, PERRLA, EOMI, Normocephalic Oral: Dry Mucosa Neck: Supple, No JVD, Negative Carotid Bruits Lungs: Clear to auscultation, Normal air movement, No rhonchi, No wheeze, No rales Cardiovascular: Normal S1, Normal S2, No murmurs, Irregular Rate, Tachycardic Abdomen: Bowel Sounds Present, Soft, Non Tender, Non-Distended, No Hepato- splenomegaly, Passing Flatus Extremities: No clubbing, No cyanosis, No edema, Capillary Refill Less than 3 Seconds Skin: No rashes, No breakdown Musculoskeletal: No Tenderness to Palpation of Joints or Extremities Lymphatic: No Cervical, Supraclavicular, or Inguinal Adenopathy Neurological: Cranial nerves II-XII grossly intact, Neuro grossly intact, Motor Exam 5/5 strength throughout Psych/Mental Status: Normal Affect, Appropriate, Alert and oriented to time, place, person, mood and affect Vital Signs Temp Pulse Resp BP Pulse Ox 97 F L 86 16 145/103 H 95 10/27/18 16:21 10/27/18 21:02 10/27/18 21:02 10/27/18 21:02 10/27/18 16:21 Oxygen Delivery Method Room Air Weight: 268 lb 11.896 oz Body Mass Index (BMI) 40.8 Laboratory Tests Past 24 Hrs 10/27/18 10/27/18 10/27/18 17:00 17:00 17:00 WBC 9.0 RBC 4.60 Hgb 13.2 Hct 42.1 MCV 91.5 MCH 28.7 MCHC 31.4 L RDW 14.8 H RDW Differential 49.4 H Plt Count 266 MPV 10.1 Immature Gran % (Auto) 0.400 Neut % (Auto) 71.4 H Lymph % (Auto) 18.5 L [place] % (Auto) 5.7 Eos % (Auto) 3.8 Baso % (Auto) 0.2 Absolute Neuts (auto) 6.4 Absolute Lymphs (auto) 1.67 Total Counted Not Reportable Sodium 143 Potassium 3.5 Chloride 105 Carbon Dioxide 31.0 Anion Gap 7 BUN 16 Creatinine 0.70 Estim Creat Clear Calc 81.90 Est GFR (MDRD) Af Amer 108 Est GFR (MDRD) Non-Af 90 BUN/Creatinine Ratio 22.9 H Glucose 107 H Calcium 8.9 Total Bilirubin 0.70 Direct Bilirubin 0.26 AST 23 ALT 48 Alkaline Phosphatase 129 H Troponin I < 0.015 Total Protein 7.1 Albumin 3.6 Globulin 3.5 Lipase 53 L Urine Color Urine Clarity Urine pH Ur Specific [place] Urine Protein Urine Glucose (UA) Urine Ketones Urine Occult Blood Urine Nitrite Urine Bilirubin Urine Urobilinogen Ur Leukocyte Esterase Urine RBC Urine WBC Ur Squamous Epith Cells Urine Bacteria Urine Mucus 10/27/18 18:00 WBC RBC Hgb Hct MCV MCH MCHC RDW RDW Differential Plt Count MPV Immature Gran % (Auto) Neut % (Auto) Lymph % (Auto) [place] % (Auto) Eos % (Auto) Baso % (Auto) Absolute Neuts (auto) Absolute Lymphs (auto) Total Counted Sodium Potassium Chloride Carbon Dioxide Anion Gap BUN Creatinine Estim Creat Clear Calc Est GFR (MDRD) Af Amer Est GFR (MDRD) Non-Af BUN/Creatinine Ratio Glucose Calcium Total Bilirubin Direct Bilirubin AST ALT Alkaline Phosphatase Troponin I Total Protein Albumin Globulin Lipase Urine Color Yellow Urine Clarity Clear Urine pH 7.0 Ur Specific [place] 1.010 Urine Protein Negative Urine Glucose (UA) Normal Urine Ketones Negative Urine Occult Blood Negative Urine Nitrite Negative Urine Bilirubin Negative Urine Urobilinogen Normal Ur Leukocyte Esterase Negative Urine RBC 0 SEEN Urine WBC 0 SEEN Ur Squamous Epith Cells 0 SEEN Urine Bacteria 0 SEEN Urine Mucus 0 SEEN Diagnostic Data Abdomen/Pelvis CT 10/27/18 16:50 IMPRESSION: No suspicious solid organ abnormality, age consistent changes in both kidneys with a simple 2 cm right renal cyst. No CT evidence of an acute inflammatory process, normal appendix visualized. Degenerative bony changes Electronically Signed: Augie Bosch MD at 19:10 EST , Service support , Shoulder X-Ray 10/27/18 16:50 IMPRESSION: Arthrosis Electronically Signed: Augie Bosch MD at 19:27 EST , Service support , Humerus X-Ray 10/27/18 19:07 IMPRESSION: Normal x-ray examination of the humerus. Electronically Signed: Augie Bosch MD at 19:26 EST , Service support , Assessment/Plan All Active Problems (Last Updated 04/29/18 @ 15:18 by Cee Mcnulty DO) Sinusitis (Acute) Hypokalemia (Acute) Acute exacerbation of chronic obstructive pulmonary disease (COPD) (Acute) Parainfluenza virus bronchopneumonia (Acute) Non-healing wound of lower extremity (Acute) Allergic reaction due to correct medicinal substance properly administered (Resolved) Atrial fibrillation with RVR (Resolved) CAP (community acquired pneumonia) (Resolved) Cellulitis of lower leg (Resolved) Influenza B (Resolved) Laceration of head (Resolved) Metabolic alkalosis (Resolved) Pneumonia (Resolved) Syncope and collapse (Resolved) [age]-year-old female presenting with a one day complaint of nausea, vomiting and diarrhea. 1. Gastroenteritis * Has a 1 day history of nausea, vomiting and diarrhea after eating some scrambled eggs and some pizza. * Admit to monitored bed in [facility] * Hydrated with IV fluid normal saline. * CBC and BMP were unremarkable. * States she has had a history of C. difficile in the past and so we will check C. difficile to see if this is a recurrence. * She denies being on any antibiotics recently. * IV Zofran as needed for nausea. * 2. A. fib * Heart rate was in the 100s on admission. This is likely exacerbated by dehydration from the gastroenteritis. * Will continue rate limiting medications. * monitor HR per telemetry. * on apizaban and cardizem and metoprolol * 3. Right shoulder pain due to mechanical fall * X-ray of the right shoulder was negative and x-ray of the right humerus was also negative. * fall Precautions. * Tylenol For pain * 4. HyperLipidemia: On simvastatin 5. Hypertension: on metoprolol and furosemide 6. Depression: On trazodone and fluoxetine DVT prophylaxis: On apixaban CODE STATUS: Full code * Patient counseled extensively about different types of CODE STATUS including full code, DNR CCA and DNR CCA. Patient elects to be full code. Total fcyo-ak-arbr time 16 minutes. Code Visit OBSV E&M: 31081 Initial observation care L3
[2018-10-27] MEDS: HYDROmorphone 1 MG/ML Syringe IV (21:28)
[2018-10-27] MEDS: traZODone 100 MG Tablet PO (23:13)
[2018-10-27] MEDS: 0.9% Normal Saline 1,000 ML 125 ML IV (23:13)
[2018-10-27] MEDS: LORazepam 1 MG Tablet PO (23:13)
[2018-10-27] MEDS: Gabapentin 600 MG Tablet PO (23:13)
[2018-10-27] MEDS: Oxybutynin 5 MG Tablet 10 MG PO (23:13)
[2018-10-27] MEDS: APIXABAN 5 MG TABLET PO (23:13)
[2018-10-27] MEDS: Baclofen 10 MG Tablet PO (23:13)
[2018-10-27] MEDS: Metoprolol Tartrate 50 MG Tablet 75 MG PO (23:14)
[2018-10-28 03:30] VITALS: PULSE 61
[2018-10-28 04:00] VITALS: BP 115/84; PULSE 74; RESP 14; TEMP 37; O2SAT 93
[2018-10-28] MEDS: 0.9% NaCl Peripheral Flush Adult/Peds IV (05:03)
[2018-10-28] MEDS: Baclofen 10 MG Tablet PO (05:03)
[2018-10-28 06:43] LABS: Absolute Lymphocyte Count 1.36 X10^3/ul (0.83-4.51); Absolute Neutrophil Count 4.3 X10^3/uL (2.0-7.7); Basophil# 0.04 X10^3/uL; Basophil% 0.6 % (0-1); Eosinophil# 0.36 X10^3/uL; Eosinophils% 5.5 % (0-5); Hemoglobin 11.4 g/dl (12.0-15.0); Lymphocyte # 1.36 X10^3/ul (4.0); Mean Corp Hgb Conc 30.8 g/gl (32-36); Mean Corpuscular Hgb 28.8 pg (27.0-32.0); Mean Corpuscular Volume 93.4 fL (81-99); Mean Platelet Vol. 10.9 fl (6.2-12.0); Monocyte# 0.43 X10^3/uL; Monocyte% 6.6 % (0-10); Neutrophil # 4.27 X10^3/uL (2.7-7.7); Neutrophil % 65.8 % (47-70); Platelet Count 252 K/mm3 (150-450); RBC Distribution Width CV 14.9 % (11.6-14.6); RBC Distribution Width SD 49.2 fl (35.1-43.9); Red Blood Count 3.96 M/mm3 (4.2-5.4); White Blood Count 6.5 K/mm3 (4.4-11.0)
[2018-10-28 06:55] LABS: POSITIVE COUNT NO; POSITIVE DIFFERENTIAL NO; POSITIVE MORPHOLOGY NO
[2018-10-28 07:00] LABS: Anion Gap 6 (5-15); BUN 13 mg/dL (7-18); BUN/Creat Ratio 20.5 RATIO (10-20); Calcium,Total 8.3 mg/dL (8.5-10.1); Chloride 108 mmol/L (98-107); Creatinine, Serum 0.63 mg/dL (0.55-1.02); EST Glomerular Filtration Rate 101 mL/min (>60); Est Glom Filt Rate - Afr Amer 122 mL/min (>60); Glucose 81 mg/dL (74-106); Potassium 4.4 mmol/L (3.5-5.1); Sodium Level 145 mmol/L (136-145)
[2018-10-28] MEDS: 0.9% Normal Saline 1,000 ML 125 ML IV (08:00)
[2018-10-28 09:00] VITALS: BP 117/78; PULSE 74; RESP 18; TEMP 36.3; O2SAT 95
[2018-10-28] MEDS: oxyCODONE 5 MG Tablet PO (09:14)
[2018-10-28] MEDS: APIXABAN 5 MG TABLET PO (09:14)
[2018-10-28] MEDS: dilTIAZem CD 240 MG Capsule PO (09:15)
[2018-10-28] MEDS: Gabapentin 600 MG Tablet PO (09:15)
[2018-10-28] MEDS: Oxybutynin 5 MG Tablet 10 MG PO (09:15)
[2018-10-28] MEDS: lamoTRIgine 100 MG Tablet PO (09:15)
[2018-10-28 09:16] VITALS: PULSE 74
[2018-10-28] MEDS: Metoprolol Tartrate 50 MG Tablet 75 MG PO (09:16)
[2018-10-28] MEDS: LORazepam 1 MG Tablet PO (09:16)
[2018-10-28] MEDS: Ascorbic Acid 500 MG Tablet 1500 MG PO (09:17)
[2018-10-28] MEDS: FLUoxetine 20 MG Capsule 40 MG PO (09:17)
[2018-10-28 10:00] VITALS: PULSE 78
--- NOTE | 2018-10-28 10:37 | DCINST_ITS ---
You will use the following diet at home:: Cardiac Your food should be the consistency of: Regular Discharge Activity: May Not Drive Weight Bearing Status: Weight bearing as tolerated Call your doctor if you observe: Fever of 101 or Higher, Inability to have a javier wel movement, Shortness of breath, Dizziness, Fainting spells, Swelling in the ankles, Increased palpitations (irregular heartbeat), Uncontrolled pain Allergies/Adverse Reactions: Allergies morphine Allergy (Verified 10/27/18 16:20) Itching nifedipine [From Procardia] Adverse Reaction (Verified 10/27/18 16:20) Other elevates bp Medications to take at Discharge Furosemide 40 mg PO BID 02/05/16 fluoxetine 40 mg capsule 40 mg PO DAILY 12/29/17 apixaban 5 mg tablet 5 mg PO BID tab 07/21/18 trazodone 100 mg tablet 100 mg PO QHS 30 Days #30 07/21/18 diltiazem CD 240 mg capsule,extended release 24 hr 240 mg PO DAILY #90 cap 08/05/18 Lamotrigine [Lamictal] 100 mg PO DAILY 08/06/18 cholecalciferol (vitamin D3) 50,000 unit capsule 50,000 unit PO LUDWIG 30 Days #4 cap 09/07/18 gabapentin 600 mg tablet 600 mg PO BID 30 Days #30 tab 09/07/18 Ascorbic Acid [Vitamin C] 1,500 mg PO DAILY 10/27/18 Baclofen 10 mg PO TID 10/27/18 Lorazepam [Ativan] 1 mg PO BID 10/27/18 Metoprolol Tartrate 75 mg PO BID 10/27/18 Oxybutynin Chloride 10 mg PO BID 10/27/18 Potassium Chloride [Klor-Con M20] 40 meq PO BID 10/27/18 Simvastatin 40 mg PO DAILY 10/27/18 Primary Care Physician: Osiel Grimaldo Chi, MD [Primary Care Provider] - Please follow up with your Primary Care Physician in: in 2 weeks Test Results: Test results from this visit will be discussed in further detail at your follow- up appointment, if applicable.
--- NOTE | 2018-10-28 10:37 | DS.PCM_ITS ---
Discharge Date and Diagnosis Date of Admission: 10/27/18 Date of Discharge: 10/28/18 - Primary Discharge Diagnosis Acute gastroenteritis mostly secondary to food poisoning/viral gastroenteritis - Secondary Discharge Diagnosis Chronic Problems (Last Updated 04/29/18 @ 15:18 by Cee Mcnulty DO) History of MRSA infection (Chronic) Paroxysmal atrial fibrillation (Chronic) Atrial fibrillation and flutter (Chronic) Palpitations (Chronic) Diabetes mellitus (Chronic) Degeneration of lumbosacral intervertebral disc (Chronic) Lumbosacral spondylosis (Chronic) History of left heart catheterization (Chronic ~01/2014) 01/2013, 01/2014 COPD (chronic obstructive pulmonary disease) (Chronic) Bilateral lower extremity edema (Chronic) Morbid obesity with BMI of 45.0-49.9, adult (Chronic) Non-alcoholic cirrhosis (Chronic) GERD (gastroesophageal reflux disease) (Chronic) Hypertension (Chronic) LUIS (obstructive sleep apnea) (Chronic) Tremor (Chronic) Anxiety (Chronic) Hospital Course and Treatment Operations: None Summary of Care Provided: The patient is a 63 year old F with multiple comorbidities and multiple recurrent admissions was admitted for nausea, vomiting, diarrhea after she ate scrambled eggs and pizza most probably gastroenteritis with suspicion of food poisoning/viral. [] 1. Acute gastroenteritis most probably is secondary to food poisoning/viral gastroenteritis. Patient was treated conservatively with IV fluid normal saline and supportive management for nausea and vomiting. * CBC and BMP were unremarkable. * States she has had a history of C. difficile in the past long time ago. Did not had a stool specimen for stool studies. * She denies being on any antibiotics recently. * 2. A. fib * Heart rate was in the 100s on admission. This is likely exacerbated by dehydration from the gastroenteritis. Heart rate was controlled, in 70s. Was monitored on telemetry. * on apizaban and cardizem and metoprolol 3. Right shoulder pain due to mechanical fall * X-ray of the right shoulder was negative and x-ray of the right humerus was also negative. * fall Precautions. * Tylenol For pain 4. HyperLipidemia: On simvastatin 5. Hypertension: on metoprolol and furosemide 6. Depression: On trazodone and fluoxetine DVT prophylaxis: On apixaban Discharge medication reconciliation done. Follow-up instructions completed. Discharge process discussed with the patient and her granddaughter present in the room Subjective: Seen and examined. Patient did not had any bowel movement after admission. Therefore, no stool specimen for study. Denies abdominal pain, nausea or vomiting. No fever or chills. Blood pressure 117/78 - Physical Exam General: Alert, Oriented x3, Cooperative HEENT: Atraumatic, PERRLA, EOMI, Normocephalic Neck: Supple, No JVD, Negative Carotid Bruits Lungs: Clear to auscultation, Diminished - Air entry diminished secondary to morbid obesity. Cardiovascular: Normal S1, Normal S2, No murmurs, Irregular Rate Abdomen: Bowel Sounds Present, Soft, Non Tender, Non-Distended - Fib Extremities: Capillary Refill Less than 3 Seconds, Edema Skin: No rashes, No breakdown Musculoskeletal: No Tenderness to Palpation of Joints or Extremities, Arthritic Changes, Muscle Wasting Neurological: Cranial nerves II-XII grossly intact, Deep Tendon Reflexes 2+/4 and Symmetrical, Neuro grossly intact Psych/Mental Status: Normal Affect, Appropriate Vital Signs Temp Pulse Resp BP Pulse Ox 97.4 F L 74 18 117/78 95 10/28/18 09:00 10/28/18 09:16 10/28/18 09:00 10/28/18 09:00 10/28/18 09:00 Oxygen Delivery Method Room Air Weight: 268 lb 15.423 oz Body Mass Index (BMI) 40.8 Intake and Output for Last 24 Hours 10/26/18 10/27/18 10/28/18 23:59 23:59 23:59 Intake Total 1080 / 1080 Balance 1080 / 1080 Laboratory Tests Past 24 Hrs 10/27/18 10/27/18 10/27/18 17:00 17:00 17:00 WBC 9.0 RBC 4.60 Hgb 13.2 Hct 42.1 MCV 91.5 MCH 28.7 MCHC 31.4 L RDW 14.8 H RDW Differential 49.4 H Plt Count 266 MPV 10.1 Immature Gran % (Auto) 0.400 Neut % (Auto) 71.4 H Lymph % (Auto) 18.5 L [place] % (Auto) 5.7 Eos % (Auto) 3.8 Baso % (Auto) 0.2 Absolute Neuts (auto) 6.4 Absolute Lymphs (auto) 1.67 Total Counted Not Reportable Sodium 143 Potassium 3.5 Chloride 105 Carbon Dioxide 31.0 Anion Gap 7 BUN 16 Creatinine 0.70 Estim Creat Clear Calc 81.90 Est GFR (MDRD) Af Amer 108 Est GFR (MDRD) Non-Af 90 BUN/Creatinine Ratio 22.9 H Glucose 107 H Calcium 8.9 Total Bilirubin 0.70 Direct Bilirubin 0.26 AST 23 ALT 48 Alkaline Phosphatase 129 H Troponin I < 0.015 Total Protein 7.1 Albumin 3.6 Globulin 3.5 Lipase 53 L Urine Color Urine Clarity Urine pH Ur Specific [place] Urine Protein Urine Glucose (UA) Urine Ketones Urine Occult Blood Urine Nitrite Urine Bilirubin Urine Urobilinogen Ur Leukocyte Esterase Urine RBC Urine WBC Ur Squamous Epith Cells Urine Bacteria Urine Mucus 10/27/18 10/28/18 10/28/18 18:00 06:04 06:04 WBC 6.5 RBC 3.96 L Hgb 11.4 L Hct 37.0 MCV 93.4 MCH 28.8 MCHC 30.8 L RDW 14.9 H RDW Differential 49.2 H Plt Count 252 MPV 10.9 Immature Gran % (Auto) 0.500 Neut % (Auto) 65.8 Lymph % (Auto) 21.0 [place] % (Auto) 6.6 Eos % (Auto) 5.5 H Baso % (Auto) 0.6 Absolute Neuts (auto) 4.3 Absolute Lymphs (auto) 1.36 Total Counted Not Reportable Sodium 145 Potassium 4.4 Chloride 108 H Carbon Dioxide 31.0 Anion Gap 6 BUN 13 Creatinine 0.63 Estim Creat Clear Calc 91.00 Est GFR (MDRD) Af Amer 122 Est GFR (MDRD) Non-Af 101 BUN/Creatinine Ratio 20.5 H Glucose 81 Calcium 8.3 L Total Bilirubin Direct Bilirubin AST ALT Alkaline Phosphatase Troponin I Total Protein Albumin Globulin Lipase Urine Color Yellow Urine Clarity Clear Urine pH 7.0 Ur Specific [place] 1.010 Urine Protein Negative Urine Glucose (UA) Normal Urine Ketones Negative Urine Occult Blood Negative Urine Nitrite Negative Urine Bilirubin Negative Urine Urobilinogen Normal Ur Leukocyte Esterase Negative Urine RBC 0 SEEN Urine WBC 0 SEEN Ur Squamous Epith Cells 0 SEEN Urine Bacteria 0 SEEN Urine Mucus 0 SEEN Discharge Activity: May Not Drive Weight Bearing Status: Weight bearing as tolerated Call your doctor if you observe: Fever of 101 or Higher, Inability to have a bowel movement, Shortness of breath, Dizziness, Fainting spells, Swelling in the ankles, Increased palpitations (irregular heartbeat), Uncontrolled pain Home Medications: Medications to take at Discharge Furosemide 40 mg PO BID 02/05/16 fluoxetine 40 mg capsule 40 mg PO DAILY 12/29/17 apixaban 5 mg tablet 5 mg PO BID tab 07/21/18 trazodone 100 mg tablet 100 mg PO QHS 30 Days #30 07/21/18 diltiazem CD 240 mg capsule,extended release 24 hr 240 mg PO DAILY #90 cap 08/05/18 Lamotrigine [Lamictal] 100 mg PO DAILY 08/06/18 cholecalciferol (vitamin D3) 50,000 unit capsule 50,000 unit PO LUDWIG 30 Days #4 cap 09/07/18 gabapentin 600 mg tablet 600 mg PO BID 30 Days #30 tab 09/07/18 Ascorbic Acid [Vitamin C] 1,500 mg PO DAILY 10/27/18 Baclofen 10 mg PO TID 10/27/18 Lorazepam [Ativan] 1 mg PO BID 10/27/18 Metoprolol Tartrate 75 mg PO BID 10/27/18 Oxybutynin Chloride 10 mg PO BID 10/27/18 Potassium Chloride [Klor-Con M20] 40 meq PO BID 10/27/18 Simvastatin 40 mg PO DAILY 10/27/18 Primary Care Physician: Osiel Grimaldo Chi, MD [Primary Care Provider] - Please follow up with your Primary Care Physician in: in 2 weeks Medical Necessity - Tobacco Use Smoking Status: Unknown if ever smoked Meaningful Use Info Meaningful Use Diagnoses (Choose all that apply): None applicable Code Visit OBSV E&M: 50613 Observation care discharge
== END 2018-10-28 12:00 | disposition home or self-care (01) ==
LOC: ED 18:05 → MS3 21:01
PROVIDERS: Admitting Provider Student in an Organized Health Care Education/Training Program; Emergency Provider Emergency Medicine; Family Provider Family Medicine Geriatric Medicine; PCP Family Medicine Geriatric Medicine; Referring Provider Student in an Organized Health Care Education/Training Program; Visit Provider Internal Medicine
DX: K52.9 Noninfective gastroenteritis and colitis, unspecified (principal); Z86.14 Personal history of Methicillin resistant Staphylococcus aureus infection; I48.91 Unspecified atrial fibrillation; Z79.01 Long term (current) use of anticoagulants; Z79.899 Other long term (current) drug therapy; E86.0 Dehydration; S40.011A Contusion of right shoulder, initial encounter; W19.XXXA Unspecified fall, initial encounter; Y93.9 Activity, unspecified; Y92.9 Unspecified place or not applicable; I48.0 Paroxysmal atrial fibrillation; M51.37 Other intervertebral disc degeneration, lumbosacral region; E66.01 Morbid (severe) obesity due to excess calories; Z68.41 Body mass index [BMI] 40.0-44.9, adult; Z71.3 Dietary counseling and surveillance; J44.9 Chronic obstructive pulmonary disease, unspecified; E11.9 Type 2 diabetes mellitus without complications; G47.33 Obstructive sleep apnea (adult) (pediatric); K21.9 Gastro-esophageal reflux disease without esophagitis; F41.9 Anxiety disorder, unspecified; F32.9 Major depressive disorder, single episode, unspecified; I10 Essential (primary) hypertension
CPT/HCPCS: 36415; 73030; 73060; 74177; 80048; 80076; 81001; 83690; 84484; 85025; 93005; 96361; 96374; 96375; 99218; 99283; J7030; Q9967; A4216; G0378; J2405

== ENCOUNTER 2018-11-15 07:32 | Day surgery (SDC) | payer MEDICAID, SELFPAY ==
[2018-10-27 21:49] VITALS: BMI 40.8
[2018-11-15] MEDS: Bupivacaine 0.25% 30 ML Vial (07:40)
[2018-11-15 08:06] VITALS: BP 144/93; PULSE 112; RESP 16; TEMP 36.2; O2SAT 98; BMI 40.6
--- NOTE | 2018-11-15 08:10 | RAD_ITS ---
PROCEDURE: Right L3-S1 radiofrequency ablation. DATE OF EXAMINATION: November 15, 2018. INDICATION: Female, 63 years old. Chronic low back pain. FLUOROSCOPY TIME (if supplied): (35.6 seconds) minutes/seconds. 7 images were obtained. Intraoperative fluoroscopic services provided for right L3-S1 radiofrequency ablation. The spinal needles are seen at the appropriate levels. RAD/L/S Spine Min 4 Views IMPRESSION: Intraoperative fluoroscopic services provided for right L3-S1 radiofrequency ablation. Electronically Signed: Dwight Ledbetter MD at 15:59 EST Tel [phone], Service support ,
[2018-11-15] MEDS: MethylPREDNISolone Acetate 80 MG/ML Vial (08:29)
[2018-11-15 08:50] VITALS: BP 120/74; BP 144/93; PULSE 78; RESP 16; TEMP 36.6; O2SAT 97
[2018-11-15 08:55] VITALS: BP 113/85; BP 144/93; PULSE 70; RESP 16; O2SAT 95
[2018-11-15 09:00] VITALS: BP 128/83; BP 144/93; PULSE 72; RESP 16; O2SAT 97
[2018-11-15 09:05] VITALS: BP 122/93; BP 144/93; PULSE 70; RESP 16; TEMP 36.7; O2SAT 98
[2018-11-15 09:18] VITALS: BP 144/93
--- NOTE | 2018-11-15 09:54 | PCM.OPRPT ---
Problem List (1) Degeneration of lumbosacral intervertebral disc Status: Chronic (2) Lumbosacral spondylosis Status: Chronic Report of Operation Date of Procedure: 11/15/18 Pre-Operative Diagnosis: Lumbosacral spondylosis, lumbosacral degenerative disc disease, lumbar facet arthropathy Post-Operative Diagnosis: Lumbosacral spondylosis, lumbosacral degenerative disc disease, lumbar facet arthropathy Surgery/Procedure Performed:: Right-sided lumbar radiofrequency ablation of the medial branch at L3, L4, L5, S1 Description of Surgical Findings:: PROCEDURE: Right-sided radiofrequency ablation of the medial branch L3, L4, L5, S1 PREOPERATIVE DIAGNOSES: Lumbosacral spondylosis, lumbosacral degenerative disc disease, lumbar facet arthropathy POSTOPERATIVE DIAGNOSES: Lumbosacral spondylosis, lumbosacral degenerative disc disease, lumbar facet arthropathy ANESTHESIA: MAC COMPLICATIONS: None BLOOD LOSS: Minimal PROCEDURE IN DETAIL: History and physical today was reviewed. Risks and benefits of procedure explained. The patient understood, agreed to the procedure and informed consent was obtained. IV inserted per routine protocol. The patient was taken to the operating room, placed in the prone position with a pillow positioned underneath the abdomen. The right side of the lower back was prepped and draped in a sterile fashion using iodine x 3. Under fluoroscopy guidance, on an oblique view, the L3 through S1 vertebral bodies were visualized. The skin and subcutaneous tissue was anesthetized with approximately 10 mL of 1% lidocaine using a 25-gauge regular needle. Under direct visualization with fluoroscopy at approximately 25-degree angle, starting on the right L3, ending on the right S1 passing through the L4-L5 using a 20-gauge 15 cm with a 10 mm curved active tip radiofrequency ablation needle the needle passed through the skin. The tip of the needle was maneuvered and directed towards the superior and medial gutter of the transverse process at the vicinity of the medial branch. Once the tip of the needle was in contact with the bone, the needle pulled approximately 2 mm up the bone. The stylet of each needle was then removed. After negative aspiration of blood with CSF and confirmation of AP as well as oblique view, radiofrequency ablation probe was then inserted at each level. Impedance was then recorded at L3 to be 217, at L4 211, at L5 326, at S1 328 ohm. Motor-evoked potential was then initiated to 1.5 volt without any motor response at each corresponding level. The probe was then removed intact and a total of 6 mL preservative-free 1% lidocaine was injected in divided doses between those 4 levels after negative aspiration of blood with CSF. The radiofrequency ablation probe was then reinserted after confirmation of AP, oblique as well as lateral view. Radiofrequency ablation was then initiated to 80 degrees Celsius for 90 seconds at each level. Once concluded, the probe was then removed intact and a total of 6 mL of preservative-free 0.25% Marcaine with 40 mg Depo-Medrol was injected in divided doses between those 4 levels. The needles were then removed intact. The patient experienced no signs or symptoms of intrathecal, intravascular injection. The patient experienced no paraesthesia. The procedure was completed without any apparent difficulty, any complication. The patient appeared to tolerate well. Sensory as well as motor exam was unchanged from prior to procedure. ASSESSMENT AND PLAN: This is a 63-year-old Female with lumbosacral spondylosis, lumbosacral degenerative disc disease, lumbar facet arthropathy, status post right-sided radiofrequency ablation of the medial branch L3 through S1. The patient will continue her current medications. The patient will follow up in approximately 2 weeks for reevaluation.
== END 2018-11-15 09:45 | disposition home or self-care (01) ==
LOC: SDC 07:34 → AC 07:38
PROVIDERS: Family Provider Family Medicine Geriatric Medicine; PCP Family Medicine Geriatric Medicine; Referring Provider Anesthesiology Pain Medicine; Visit Provider Anesthesiology Pain Medicine
PROC: (CPT 64635; principal; 2018-11-15 08:00)
DX: M47.897 Other spondylosis, lumbosacral region (principal); M51.37 Other intervertebral disc degeneration, lumbosacral region; M12.88 Other specific arthropathies, not elsewhere classified, other specified site; I48.91 Unspecified atrial fibrillation; F32.9 Major depressive disorder, single episode, unspecified; K21.9 Gastro-esophageal reflux disease without esophagitis; Z79.899 Other long term (current) drug therapy; Z79.01 Long term (current) use of anticoagulants; I10 Essential (primary) hypertension; Z87.891 Personal history of nicotine dependence
CPT/HCPCS: 64635; 64636 ×3; 72110; 76000; J7120

== ENCOUNTER 2018-12-01 18:45 | Inpatient (IN) | payer MEDICAID, SELFPAY ==
[2018-12-01] VITALS (8 sets, daily range): BP systolic 95–152; BP diastolic 48–90; PULSE 70–89; RESP 16–18; TEMP 36.9–37; O2SAT 95–97; BMI 43.2; BMI 41.5; BMI 41.6
--- NOTE | 2018-12-01 19:14 | CT_ITS ---
STUDY: CT CERVICAL SPINE WITHOUT CONTRAST REASON FOR EXAM: Female, 63 years old. Fall. Hit posterior head. No loss of consciousness. RADIATION DOSAGE (If Supplied By Facility): CTDIvol = ( 27.22 ) mGy, DLP = ( 548.85 ) mGycm TECHNIQUE: High resolution transaxial imaging was performed without contrast material. Sagittal and coronal images were reconstructed. Individualized dose optimization techniques were used for this CT. COMPARISON: CT cervical spine, March 30, 2017. FINDINGS: Normal craniovertebral junction. There are degenerative changes of the anterior atlantoaxial articulation. Normal odontoid process. There is straightening of the normal cervical lordosis. Normal vertebral bodies and posterior osseous elements. C2-3: Normal endplates. Normal disc height and morphology. There is mild facet and uncovertebral joint degenerative change. Normal central canal and intervertebral neuroforamina. C3-4: Normal endplates. There is loss of disc height. There is facet and uncovertebral joint degenerative change. Normal central canal and intervertebral neuroforamina. C4-5: Normal endplates. There is loss of disc height. There is facet and uncovertebral joint degenerative change. Normal central canal reveals mild narrowing of the right intervertebral neuroforamen. C5-6: There is endplate spondylosis with marked loss of disc height. There is facet and uncovertebral joint degenerative change. Normal central canal. There is severe narrowing of the right intervertebral neuroforamen. C6-7: Normal endplates. Mild loss of disc height. Normal central canal and intervertebral neuroforamina. C7-T1: Normal endplates. Normal disc height and morphology. Normal central canal and intervertebral neuroforamina. Normal visualized soft tissue structures. CT/Spine Cervical without Contras IMPRESSION: Degenerative changes of the cervical spine without acute fracture or subluxation. There is no marked interval change Electronically Signed: Félix Mcintyre DO at 20:10 EST Tel [phone], Service support ,
--- NOTE | 2018-12-01 19:14 | CT_ITS ---
STUDY: CT BRAIN WITHOUT CONTRAST REASON FOR EXAM: Female, 63 years old. Fall. Hit head. RADIATION DOSAGE (If Supplied By Facility): CTDIvol = ( 44.99 ) mGy, DLP = ( 812.98 ) mGycm TECHNIQUE: Transaxial CT imaging of the brain was performed without administration of intravenous contrast material. Individualized dose optimization techniques were used for this CT. COMPARISON: April 12, 2018. FINDINGS: There is a subcutaneous hematoma over the left occipital region. The soft tissues are otherwise unremarkable. Normal calvarium. Normal size ventricles and extra-axial spaces for the patient's age. Normal white matter tracts of the cerebral hemispheres. Normal basal ganglia and thalami. Normal brainstem. Normal cerebellum. There is no intracranial hemorrhage. There are no findings of an acute ischemic infarction. Normal visualized paranasal sinuses. CT/Brain/Head without Contrast IMPRESSION: 1. No evidence of acute intracranial or calvarial abnormality. 2. Left occipital subcutaneous hematoma. Electronically Signed: Félix Mcintyre DO at 19:57 EST Tel [phone], Service support ,
--- NOTE | 2018-12-01 19:14 | RAD_ITS ---
STUDY: X-RAY - LEFT KNEE REASON FOR EXAM: Female, 63 years old. Fracture of the distal femur after recent fall. TECHNIQUE: 4 view(s) of the knee. COMPARISON: Radiographs of the left kidney due to September 14, 2015. FINDINGS: There is an acute comminuted and displaced fracture of the distal femoral diaphysis and metaphysis, proximal to the femoral prosthesis. Patient has a total knee arthroplasty with the proximal tibial component and distal femoral component. Normal proximal tibiofibular articulation. Normal medial femorotibial compartment. Normal lateral femorotibial compartment. Normal patellofemoral articulation. There is a soft tissue prominence in the suprapatellar region suggesting a small volume joint effusion. There is soft tissue swelling. RAD/Knee 1 or 2 Views IMPRESSION: 1. Acute comminuted displaced fracture of distal femoral diaphysis. 2. Osteoporosis. 3. Status post total left knee arthroplasty. Electronically Signed: Leonarda Felix MD at 20:50 EST , Service support ,
--- NOTE | 2018-12-01 19:15 | CT_ITS ---
STUDY: CT ABDOMEN AND PELVIS WITHOUT CONTRAST REASON FOR EXAM: Female, 63 years old. Fall. Hit posterior head. Left flank pain. RADIATION DOSAGE (If Supplied By Facility): CTDIvol = ( 24.17 ) mGy, DLP = ( 1529.14 ) mGycm TECHNIQUE: Transaxial images were obtained from the dome of the diaphragm to the symphysis pubis without oral contrast, and without intravenous contrast. Sagittal and coronal images were reconstructed. Individualized dose optimization techniques were used for this CT. COMPARISON: October 27, 2018. FINDINGS: The visualized lung bases are unremarkable. The visualized portions of the heart are within normal limits. Normal liver. There is non-visualization of the gallbladder, which may be secondary to either contraction or a prior cholecystectomy. Normal spleen. Normal pancreas. Normal bilateral adrenal glands. 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 There is a 3.2 cm upper pole cyst. There is no solid mass renal calculi. There is no hydronephrosis. Normal visualized right ureter. The left kidney is without mass or renal calculi. There is no hydronephrosis. Normal visualized left ureter. Normal visualized stomach. Normal small intestine. Normal colon. The appendix is visualized and appears normal. There is diffuse atherosclerotic calcification of the abdominal aorta, without a demonstrated aneurysm. Normal inferior vena cava. Normal retroperitoneum. Normal urinary bladder. Status post hysterectomy. Vaginal cuff is grossly unremarkable. There is a calcification within the left perirectal fat which is unchanged from the prior exam. No free air or free fluid is seen within the peritoneal cavity. There is a large umbilical hernia of omental fat. The abdominal wall appears otherwise grossly unremarkable. There is stranding of subcutaneous fat over the right buttock although this is incompletely visualized. Injection granulomata are seen in the left buttock. There is levoscoliosis and degenerative changes of the lumbar spine. There is no visualized fracture or dislocation. CT/Abdomen/Pelvis without Cont IMPRESSION: 1. Stranding of the soft tissues over the right buttock and hip suggesting soft tissue injury. There is no underlying fracture or dislocation. 2. No evidence of acute intra-abdominal or pelvic abnormality. There is no other major interval change when compared to the previous study. Electronically Signed: Félix Mcintyre DO at 20:06 EST Tel [phone], Service support ,
[2018-12-01] MEDS: HYDROcodone Bitartrate/Apap 5/325 Tablet PO (19:27)
--- NOTE | 2018-12-01 19:47 | RAD_ITS ---
STUDY: X-RAY - LEFT FEMUR REASON FOR STUDY: Female, 63 years old. Fall. Left leg pain. TECHNIQUE: 4 view(s) of the femur. COMPARISON: Left knee, December 01, 2018. FINDINGS: There is a comminuted and dorsally angulated fracture of the distal femoral diametaphysis. The fracture extends downward to the left total knee arthroplasty. There is no obvious loosening on the current images. The proximal femoral shaft is intact. There are degenerative changes of the hip without dislocation. Normal visualized soft tissue structure. RAD/Femur Min 2 Views IMPRESSION: Comminuted and dorsally angulated fracture of the distal femur, involving the total knee arthroplasty. Electronically Signed: Félix Mcintyre DO at 20:45 EST Tel [phone], Service support ,
--- NOTE | 2018-12-01 19:55 | RAD_ITS ---
STUDY: X-RAY CHEST REASON FOR EXAM: Female, 63 years old. Fall. Pain. Left leg abnormality. TECHNIQUE: Single AP portable view of the chest. COMPARISON: April 27, 2018. FINDINGS: There is a decreased inspiratory effort. There is no new mass or infiltrate. There is no demonstrated pleural abnormality. Normal size heart. Normal mediastinum and guillaume. Normal visualized pulmonary arteries. Normal visualized aortic arch and descending thoracic aorta. The thoracic spine is obscured by the mediastinum. There is degenerative osteoarthritis of the bilateral shoulders. There is no demonstrated abnormality of the visualized soft tissue structures of the upper abdomen. RAD/Chest 1 View (Portable) IMPRESSION: No acute cardiopulmonary disease. Electronically Signed: Félix Mcintyre DO at 20:43 EST Tel [phone], Service support ,
[2018-12-01] MEDS: ALPRAZolam 0.25 MG Tablet PO (20:06)
[2018-12-01] MEDS: HYDROmorphone 0.5 MG/0.5 ML SYRINGE IV ×2 (20:29→21:17)
[2018-12-01] MEDS: 0.9% Normal Saline 1,000 ML 15 ML IV (20:29)
[2018-12-01 20:34] LABS: Absolute Neutrophil Count 6.8 X10^3/uL (2.0-7.7); Basophil# 0.04 X10^3/uL; Basophil% 0.4 % (0-1); Eosinophil# 0.35 X10^3/uL; Eosinophils% 3.5 % (0-5); Hematocrit 40.1 % (37-47); Hemoglobin 12.5 g/dl (12.0-15.0); Lymphocyte % 20.2 % (19-41); Mean Corp Hgb Conc 31.2 g/gl (32-36); Mean Corpuscular Hgb 29.1 pg (27.0-32.0); Mean Corpuscular Volume 93.3 fL (81-99); Mean Platelet Vol. 10.5 fl (6.2-12.0); Monocyte# 0.65 X10^3/uL; Monocyte% 6.6 % (0-10); Neutrophil # 6.78 X10^3/uL (2.7-7.7); Neutrophil % 68.7 % (47-70); Platelet Count 256 K/mm3 (150-450); RBC Distribution Width CV 14.9 % (11.6-14.6); RBC Distribution Width SD 50.5 fl (35.1-43.9); White Blood Count 9.9 K/mm3 (4.4-11.0)
[2018-12-01 20:38] LABS: POSITIVE COUNT NO; POSITIVE DIFFERENTIAL NO; POSITIVE MORPHOLOGY NO
[2018-12-01 20:43] LABS: Anion Gap 7 (5-15); BUN 23 mg/dL (7-18); BUN/Creat Ratio 31.6 RATIO (10-20); Calcium,Total 8.9 mg/dL (8.5-10.1); Chloride 106 mmol/L (98-107); Creatinine, Serum 0.73 mg/dL (0.55-1.02); EST Glomerular Filtration Rate 85 mL/min (>60); Est Glom Filt Rate - Afr Amer 103 mL/min (>60); Estimated Creatinine Clearance 78.54 ml/min; Glucose 130 mg/dL (74-106); Potassium 3.4 mmol/L (3.5-5.1); Sodium Level 145 mmol/L (136-145)
[2018-12-01 20:45] LABS: International Normalized Ratio 1.3; Prothrombin Time (Protime)PT. 15.8 SECONDS (11.7-14.9)
[2018-12-01 20:46] LABS: Partial Thromboplast Time 29.7 Seconds (24.1-36.2)
--- NOTE | 2018-12-01 20:55 | ED.RN ---
PURE WICK URINARY DEVICE APPLIED TO PATIENT AND HOOKED UP TO SUCTION PER DR. CRESPO'S REQUEST.
[2018-12-01] MEDS: Ondansetron 4 MG/2 ML Vial IV (21:17)
--- NOTE | 2018-12-01 22:01 | ED.VISSUMM ---
- ER Visit Summary Date of Service: 12/01/18 Chief Complaint: Fall History of Present Illness: The patient is a 63 F who fell on the ice today and presents with pain to her left knee, left flank, and head. She denies loss of consciousness. Patient states she was attempting to get into her truck when her feet slipped on the ice. Past history significant for COPD, hypertension, diabetes, GERD, paroxysmal A. fib, cirrhosis. Patient is currently on Eliquis. Physical Examination: Vital signs are unremarkable. Patient is lying in bed in no acute distress. Head neck examination does reveal hematoma to the posterior parietal scalp. No overlying laceration. No C-spine tenderness. Heart is regular rate and rhythm. Lungs sounds are grossly clear. Abdomen is soft with mild tenderness in the mid to lower left side abdomen. No overlying skin changes or evidence of hematoma. Lower extremity examination reveals tenderness to palpation on the left knee and distal thigh. She does have strong distal pulses and can wiggle toes. Test Results: Left femur and left knee x-rays are initially obtained which reveal comminuted and dorsally angulated fracture of the distal femur involving total knee arthroplasty. Chest x-ray shows no acute disease. CT head shows no intra-cranial abnormality. There is a subcutaneous hematoma noted to the left occiput. C-spine CT shows degenerative changes with no fracture. CT flank shows soft tissue stranding in the right buttock and hip suggesting soft tissue injury. No acute intra-abdominal abnormality is noted. CBC is unremarkable. Chemistry studies significant for potassium 3.4. INR is 1.3. Emergency Department Course and Treatment: Patient was initially given Piseco and Xanax. Upon completion of initial x-rays which did demonstrate fracture IV line was established. She was given Dilaudid for pain as well as Zofran for nausea. Left leg has been placed in a knee immobilizer. She has strong distal pulses and can wiggle toes following immobilizer application. Test results have been discussed with the patient. I have spoken with Dr. Felix, on-call for orthopedics. He has consulted with Dr. Jenkins and Dr. Jenkins will plan to do her left distal femur surgery either Thursday or Thursday morning. They will allow a day or 2 for the Eliquis to get out of her system. Hospitalist is on page at this time. Treatment Plan: [] Disposition: Admit Impression: 1. Mechanical fall 2. Left distal femur fracture 3. Chronic anticoagulation secondary to paroxysmal A. fib This note was generated with [employer] dictation software. It may contain incorrect words, spelling, and punctuation that were not noted in review of the chart prior to signing ED Disposition - Plan for ED Patient: Chief Complaint: Lower Extremity Injury Referrals: Osiel Grimaldo Chi, MD [Primary Care Provider] -
--- NOTE | 2018-12-01 22:54 | HP.PCM_ITS ---
Problem List (1) Acute fall Status: Acute (2) Fracture of femur, distal, left, closed Status: Acute (3) Sinusitis Status: Chronic (4) Hypokalemia Status: Chronic (5) Acute exacerbation of chronic obstructive pulmonary disease (COPD) Status: Resolved (6) Parainfluenza virus bronchopneumonia Status: Resolved (7) History of MRSA infection Status: Resolved (8) Paroxysmal atrial fibrillation Status: Chronic (9) Atrial fibrillation and flutter Status: Chronic (10) Palpitations Status: Chronic (11) Diabetes mellitus Status: Chronic Qualifiers: Diabetes mellitus type: type 2 (12) Degeneration of lumbosacral intervertebral disc Status: Chronic (13) Lumbosacral spondylosis Status: Chronic (14) History of left heart catheterization Status: Chronic Comment: 01/2013, 01/2014 (15) COPD (chronic obstructive pulmonary disease) Status: Chronic (16) Non-healing wound of lower extremity Status: Acute (17) Bilateral lower extremity edema Status: Chronic (18) Morbid obesity with BMI of 45.0-49.9, adult Status: Chronic (19) Non-alcoholic cirrhosis Status: Chronic (20) GERD (gastroesophageal reflux disease) Status: Chronic (21) Hypertension Status: Chronic Qualifiers: Hypertension type: essential hypertension Qualified Code(s): I10 - Essential (primary) hypertension (22) LUIS (obstructive sleep apnea) Status: Chronic (23) Tremor Status: Chronic (24) Anxiety Status: Chronic History of Present Illness Date of Admission: 12/01/18 Chief Complaint: Fall with fracture of left femur The patient is a 63 year old F with multiple comorbidities came to ER when she slipped on the ice and left knee went into hyperflexion and then fell into left side of flank and hit her head. She denies loss of consciousness. Patient immediately had severe pain in her left knee, left flank and head. She also complained of pain on the left flank of the abdomen. She is on usual health prior to that. She has multiple comorbidities including proximal A. fib, COPD, nonalcoholic cirrhosis, hypertension, obstructive sleep apnea and morbid obesity She had CT head, C-spine and x-rays of left knee and abdomen and pelvis CT. X-ray of left knee shows acute communicated displaced fracture of distal femoral diaphysis and metaphysis, proximal to the femoral prosthesis. CT scan of the abdomen shows a stranding of soft tissue over the right buttock and hip suggesting soft tissue injury otherwise no acute intra-abdominal or pelvic abnormality. Past Medical History Past Medical History (Chronic Problems): Chronic Problems (Last Updated 04/29/18 @ 15:18 by Cee Mcnulty DO) Sinusitis (Chronic) Hypokalemia (Chronic) Paroxysmal atrial fibrillation (Chronic) Atrial fibrillation and flutter (Chronic) Palpitations (Chronic) Diabetes mellitus (Chronic) Degeneration of lumbosacral intervertebral disc (Chronic) Lumbosacral spondylosis (Chronic) History of left heart catheterization (Chronic ~01/2014) 01/2013, 01/2014 COPD (chronic obstructive pulmonary disease) (Chronic) Bilateral lower extremity edema (Chronic) Morbid obesity with BMI of 45.0-49.9, adult (Chronic) Non-alcoholic cirrhosis (Chronic) GERD (gastroesophageal reflux disease) (Chronic) Hypertension (Chronic) LUIS (obstructive sleep apnea) (Chronic) Tremor (Chronic) Anxiety (Chronic) Medical History: Medical History (Last Updated 04/29/18 @ 15:18 by Cee Mcnulty DO) Palpitations (Chronic) R00.2 COPD (chronic obstructive pulmonary disease) (Chronic) J44.9 Bilateral lower extremity edema (Chronic) R60.0 Morbid obesity with BMI of 45.0-49.9, adult (Chronic) E66.01, Z68.42 Non-alcoholic cirrhosis (Chronic) GERD (gastroesophageal reflux disease) (Chronic) K21.9 Hypertension (Chronic) I10 LUIS (obstructive sleep apnea) (Chronic) G47.33 Tremor (Chronic) R25.1 Anxiety (Chronic) F41.9 Dizziness and giddiness R42 Edema R60.9 Shortness of breath R06.02 History of hysterectomy Z90.710 Blister (nonthermal), left knee, initial encounter (Inactive) S80.222A Chest pain (Inactive) R07.9 Allergies morphine Allergy (Verified 12/01/18 18:51) Itching nifedipine [From Procardia] Adverse Reaction (Verified 12/01/18 18:51) Other elevates bp Home Medications: Ambulatory Orders Medication Instructions Recorded Furosemide 40 mg PO BID 02/05/16 fluoxetine 40 mg capsule 40 mg PO DAILY 12/29/17 apixaban 5 mg tablet 5 mg PO BID tab 07/21/18 trazodone 100 mg tablet 100 mg PO QHS 30 Days #30 07/21/18 Lamotrigine [Lamictal] 100 mg PO QHS 08/06/18 cholecalciferol (vitamin D3) 50,000 unit PO LUDWIG 30 Days #4 cap 09/07/18 50,000 unit capsule gabapentin 600 mg tablet 600 mg PO BID 30 Days #30 tab 09/07/18 Ascorbic Acid [Vitamin C] 1,500 mg PO DAILY 10/27/18 Baclofen 10 mg PO TID 10/27/18 Lorazepam [Ativan] 1 mg PO BID PRN 10/27/18 Metoprolol Tartrate 75 mg PO BID 10/27/18 Oxybutynin Chloride 10 mg PO BID 10/27/18 Potassium Chloride [Klor-Con M20] 40 meq PO BID 10/27/18 Simvastatin 40 mg PO QHS 10/27/18 S-Adenosylmethionine Sul Tosyl 400 mg PO BID 12/01/18 [Ray-E] Diltiazem HCl [Diltiazem 24Hr ER] 240 mg PO DAILY 12/02/18 Surgical History: Surgical History (Last Updated 03/31/18 @ 10:24 by John Braswell) History of left heart catheterization (Chronic) Onset Date: ~01/2014 Z98.890 01/2013, 01/2014 History of carpal tunnel release Z98.890 History of carpal tunnel release of both wrists Z98.890 History of tonsillectomy and adenoidectomy Z98.890 History of total left knee replacement (TKR) Z96.652 History of total right knee replacement (TKR) Z96.651 Hx of cholecystectomy Z90.49 vaginal fistula repair Surgical History: - - T+A, Cholecystectomy, Hysterectomy, Vaginal fistula repairs, L TKR, Bunion/hammertoe RLE, Carpal tunnel BL. 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 Smoking Status: Former smoker - *Family History Maternal Family History: Family History (Last Updated 03/31/18 @ 10:24 by John Braswell) Mother Breast cancer Diabetes Brother Cancer History Items: Diabetes Paternal Family History: Family History (Last Updated 03/31/18 @ 10:24 by John Braswell) Mother Breast cancer Diabetes Brother Cancer History Items: Cancer Review of Systems Constitutional: Denies: Chills, Fever, Weight Change HEENT: Denies: Head Aches, Sinus Congestion, Sinus Drainage Cardiovascular: Denies: Chest Pain, Palpitations Respiratory: Denies: Cough, Shortness of breath at rest, Sputum production Gastrointestinal: Denies: Abdominal Pain, Nausea, Vomiting Genitourinary: Denies: Dysuria, Frequency, Hematuria, Urgency Musculoskeletal: Reports: Back Pain, Joint Pain, Joint swelling, Joint Tenderness Skin: Denies: Rash, Wounds Neurological: Reports: Balance problems, Incoordination. Denies: Focal weakness, Numbness, Tingling Psychiatric: Denies: Anxiety, Depression, Homicidal Ideations, Suicidal Ideations Hematologic/ Lymphatic: Denies: Easy Bruising, Easy Bleeding VTE Information - Inpt Only VTE Present on Admission: No VTE Mechan Device Prophylaxis: None Reason prophylaxis not ordered:: Medical Contraindication - Will need left distal femoral fracture ORIF Patient Problems: Active and Suspected Problems (Last Updated 04/29/18 @ 15:18 by Cee Mcnulty DO) Acute fall (Acute) Fracture of femur, distal, left, closed (Acute) - Physical Exam General: Alert, Oriented x3, Cooperative HEENT: Atraumatic, PERRLA, EOMI, Normocephalic Neck: Supple, No JVD, Negative Carotid Bruits Lungs: Normal air movement, No rhonchi, No wheeze, No rales, Diminished - Air entry is diminished in the bilateral lung bases Cardiovascular: Regular rate, Regular Rhythm, Normal S1, Normal S2, No murmurs Abdomen: Bowel Sounds Present, Soft, Non-Distended, Tender - Mild tenderness the abdominal wall the left lumbar region Extremities: Capillary Refill Less than 3 Seconds, Edema Skin: No rashes, No breakdown Musculoskeletal: Arthritic Changes, Tenderness - Tenderness of the left knee and thigh. Deformity of the left femur. Left lower extremity in a splint Neurological: Cranial nerves II-XII grossly intact Psych/Mental Status: Normal Affect, Appropriate Vital Signs Temp Pulse Resp BP Pulse Ox 98.6 F 87 18 98/65 96 12/01/18 18:46 12/01/18 22:50 12/01/18 22:21 12/01/18 22:50 12/01/18 22:50 Oxygen Flow Rate (L/min) 2 Oxygen Delivery Method Nasal Cannula Weight: 284 lb 6.341 oz Body Mass Index (BMI) 43.2 Laboratory Tests Past 24 Hrs 12/01/18 12/01/18 12/01/18 20:15 20:15 20:15 WBC 9.9 RBC 4.30 Hgb 12.5 Hct 40.1 MCV 93.3 MCH 29.1 MCHC 31.2 L RDW 14.9 H RDW Differential 50.5 H Plt Count 256 MPV 10.5 Immature Gran % (Auto) 0.600 Neut % (Auto) 68.7 Lymph % (Auto) 20.2 [place] % (Auto) 6.6 Eos % (Auto) 3.5 Baso % (Auto) 0.4 Absolute Neuts (auto) 6.8 Absolute Lymphs (auto) 2.00 Total Counted Not Reportable PT 15.8 H INR 1.3 APTT 29.7 Sodium 145 Potassium 3.4 L Chloride 106 Carbon Dioxide 32.0 Anion Gap 7 BUN 23 H Creatinine 0.73 Estim Creat Clear Calc 78.54 Est GFR (MDRD) Af Amer 103 Est GFR (MDRD) Non-Af 85 BUN/Creatinine Ratio 31.6 H Glucose 130 H Calcium 8.9 Assessment/Plan All Active Problems (Last Updated 04/29/18 @ 15:18 by Cee Mcnulty DO) Acute fall (Acute) Fracture of femur, distal, left, closed (Acute) Acute exacerbation of chronic obstructive pulmonary disease (COPD) (Resolved) Parainfluenza virus bronchopneumonia (Resolved) History of MRSA infection (Resolved) Non-healing wound of lower extremity (Acute) Allergic reaction due to correct medicinal substance properly administered (Resolved) Atrial fibrillation with RVR (Resolved) CAP (community acquired pneumonia) (Resolved) Cellulitis of lower leg (Resolved) Influenza B (Resolved) Laceration of head (Resolved) Metabolic alkalosis (Resolved) Pneumonia (Resolved) Syncope and collapse (Resolved) The patient is a 63 year old F with multiple comorbidities came to ER when she slipped on the ice and left knee went into hyperflexion and then fell into left side of flank and hit her head. She denies loss of consciousness. Patient immediately had severe pain in her left knee, left flank and head. She also complained of pain on the left flank of the abdomen. She is on usual health prior to that. She has multiple comorbidities including proximal A. fib, COPD, nonalcoholic cirrhosis, hypertension, obstructive sleep apnea and morbid obesity She had CT head, C-spine and x-rays of left knee and abdomen and pelvis CT. X-ray of left knee shows acute communicated displaced fracture of distal femoral diaphysis and metaphysis, proximal to the femoral prosthesis. CT scan of the abdomen shows a stranding of soft tissue over the right buttock and hip suggesting soft tissue injury otherwise no acute intra-abdominal or pelvic abnormality. 1. Acute comminuted, displaced, closed fracture of distal femoral diaphysis, proximal to femoral prosthesis: The patient is being admitted on [facility] floor. ER physician Dr. Kapadia consulted Dr. Jenkins and will plan to do surgery on either Thursday or Thursday morning as the patient needs about 2 days to wear off the effect of Eliquis. Pain control. Perioperative management. IV fluid normal saline. Vitals are stable. 2. Paroxysmal A. fib on Eliquis: Eliquis is on hold. Twelve-lead EKG done. The patient had last echo in August 2017 reported as EF 45-50%. Mild global hypokinesis of left ventricle. LA severely enlarged. Normal right atrium. Normal right ventricle size and systolic function. No significant valvular abnormality except mild diffuse aortic valve thickening. 3. Mild hypokalemia: K3.4. Potassium is being replaced. 4. HyperLipidemia: On simvastatin 5. Hypertension: on metoprolol and furosemide 6. Depression: On trazodone and fluoxetine. Patient denies history of diabetes mellitus type 2 even though it is listed in problem list. Glucose 81 in October 2018, currently 130. A1c tomorrow a.m. 7. COPD bronchodilator as needed. Incentive spirometry. DVT prophylaxis: On apixaban Laboratory Results 12/01/18 20:15: WBC 9.9, RBC 4.30, Hgb 12.5, Hct 40.1, MCV 93.3, MCH 29.1, MCHC 31.2 L, RDW 14.9 H, RDW Differential 50.5 H, Plt Count 256, MPV 10.5, Immature Gran % (Auto) 0.600, Neut % (Auto) 68.7, Lymph % (Auto) 20.2, [place] % (Auto) 6.6, Eos % (Auto) 3.5, Baso % (Auto) 0.4, Absolute Neuts (auto) 6.8, Absolute Lymphs (auto) 2.00, Total Counted Not Reportable 12/01/18 20:15: PT 15.8 H, INR 1.3, APTT 29.7 12/01/18 20:15: Sodium 145, Potassium 3.4 L, Chloride 106, Carbon Dioxide 32.0, Anion Gap 7, BUN 23 H, Creatinine 0.73, Estim Creat Clear Calc 78.54, Est GFR (MDRD) Af Amer 103, Est GFR (MDRD) Non-Af 85, BUN/Creatinine Ratio 31.6 H, Glucose 130 H, Calcium 8.9 Clinical Impression(s) from Imaging Studies Brain CT 12/01/18 19:14 IMPRESSION: 1. No evidence of acute intracranial or calvarial abnormality. 2. Left occipital subcutaneous hematoma. Cervical Spine CT 12/01/18 19:14 IMPRESSION: Degenerative changes of the cervical spine without acute fracture or subluxation. There is no marked interval change Knee X-Ray 12/01/18 19:14 IMPRESSION: 1. Acute comminuted displaced fracture of distal femoral diaphysis. 2. Osteoporosis. 3. Status post total left knee arthroplasty. Electronically Signed: Leonarda Felix MD at 20:50 EST , Service support , Abdomen/Pelvis CT 12/01/18 19:15 IMPRESSION: 1. Stranding of the soft tissues over the right buttock and hip suggesting soft tissue injury. There is no underlying fracture or dislocation. 2. No evidence of acute intra-abdominal or pelvic abnormality. There is no other major interval change when compared to the previous study. Electronically Signed: Félix Mcintyre DO at 20:06 EST Tel [phone], Service support , Femur X-Ray 12/01/18 19:47 IMPRESSION: Comminuted and dorsally angulated fracture of the distal femur, involving the total knee arthroplasty. Electronically Signed: Félix Mcintyre DO at 20:45 EST Tel [phone], Service support , Chest X-Ray 12/01/18 19:55 IMPRESSION: No acute cardiopulmonary disease. Code Visit Inpatient E&M: 43179 Init Hosp L3
--- NOTE | 2018-12-02 00:31 | EKG12_ITS ---
Test Reason : AM EKG Blood Pressure : / mmHG Vent. Rate : 080 BPM Atrial Rate : 096 BPM P-R Int : 000 ms QRS Dur : 090 ms QT Int : 416 ms P-R-T Axes : 000 -04 000 degrees QTc Int : 479 ms Atrial fibrillation Abnormal ECG Confirmed by LUCILA FERNANDEZ, NITESH ([id number]), health editor ABI CRAIG ([id number] on 12/07/2018 3:55:33 PM Referred By: JOSE Confirmed By:NITESH GAYTAN MD
[2018-12-02] MEDS: HYDROcodone Bitartrate/Apap 5/325 Tablet PO ×4 (00:55→15:54)
[2018-12-02] MEDS: 0.9% Normal Saline 1,000 ML 75 ML IV (05:02)
[2018-12-02 05:06] VITALS: BP 115/72; PULSE 79; RESP 18; TEMP 36.9; O2SAT 93
[2018-12-02 05:57] LABS: Absolute Lymphocyte Count 1.35 X10^3/ul (0.83-4.51); Absolute Neutrophil Count 6.4 X10^3/uL (2.0-7.7); Basophil# 0.03 X10^3/uL; Basophil% 0.3 % (0-1); Eosinophil# 0.25 X10^3/uL; Eosinophils% 2.9 % (0-5); Hematocrit 35.9 % (37-47); Hemoglobin 10.9 g/dl (12.0-15.0); Lymphocyte # 1.35 X10^3/ul (4.0); Lymphocyte % 15.6 % (19-41); Mean Corp Hgb Conc 30.4 g/gl (32-36); Mean Corpuscular Hgb 28.5 pg (27.0-32.0); Mean Platelet Vol. 10.3 fl (6.2-12.0); Monocyte# 0.55 X10^3/uL; Monocyte% 6.4 % (0-10); Neutrophil # 6.43 X10^3/uL (2.7-7.7); Neutrophil % 74.5 % (47-70); Platelet Count 239 K/mm3 (150-450); RBC Distribution Width SD 50.9 fl (35.1-43.9); Red Blood Count 3.82 M/mm3 (4.2-5.4); White Blood Count 8.6 K/mm3 (4.4-11.0)
[2018-12-02 06:07] LABS: POSITIVE COUNT NO; POSITIVE DIFFERENTIAL NO; POSITIVE MORPHOLOGY NO
[2018-12-02 06:21] LABS: Anion Gap 6 (5-15); BUN 23 mg/dL (7-18); BUN/Creat Ratio 32.7 RATIO (10-20); Chloride 108 mmol/L (98-107); EST Glomerular Filtration Rate 89 mL/min (>60); Est Glom Filt Rate - Afr Amer 108 mL/min (>60); Glucose 111 mg/dL (74-106); Potassium 3.8 mmol/L (3.5-5.1); Sodium Level 144 mmol/L (136-145)
--- NOTE | 2018-12-02 09:21 | PCM.CONS.GEN ---
Problem List (1) Fracture of femur, distal, left, closed Status: Acute Reason for Consult Date of Consultation: 12/02/18 Reason for Consultation: Left distal femur periprosthetic fracture History of Present Illness: The patient is a 63 year old female who slipped on the ice having her left knee hyperflexed falling on the left side. Patient had immediate left knee pain. Patient states she did hit her left flank and head. Patient had severe pain in the left knee. Patient underwent a previous left total knee arthroplasty while in [place] in 2011. She denies any postoperative complications, infections, or return to surgery. Patient states prior to the fall she was not having any significant pain in the left knee. She was ambulating without a walker or cane. Patient was seen by Dr. Bliss in 2016 for nonhealing ulcer of the left knee after a fall. Patient states she had an irrigation and debridement secondary to MRSA. She was treated with antibiotics and this resolved. She also states having a similar ulceration over the right lower leg. Patient also underwent a right total knee arthroplasty by Dr. Madrid in 2013. Patient denies any numbness and tingling in the left lower extremity. She is currently lying in bed with knee immobilizer on the left knee. Patient has a medical history pertinent for atrial fibrillation currently on Eliquis, chronic obstructive pulmonary disease, nonalcoholic cirrhosis, hypertension, obstructive sleep apnea, morbid obesity, gastroesophageal reflux disease, and anxiety. Patient's chart lists diabetes mellitus however patient states she does not have this. Orthopedics was consulted secondary to the periprosthetic left knee fracture. The Eliquis has been held in anticipation of surgery. Patient follows with android ui developer Dr. Cohen. She has also had previous heart catheterization in 2013. Patient had CT scan of the head, C-spine, abdomen/pelvis. CT scan of the head report was viewed shows no intracranial hemorrhage but does reveal subcutaneous hematoma left occipital region. CT scan report of the cervical spine shows degenerative changes with no acute fracture. Patient currently denies any chest pain, shortness of breath. Past Medical History Past Medical History (Chronic Problems): Chronic Problems (Last Updated 04/29/18 @ 15:18 by Cee Mcnulty DO) Sinusitis (Chronic) Hypokalemia (Chronic) Paroxysmal atrial fibrillation (Chronic) Atrial fibrillation and flutter (Chronic) Palpitations (Chronic) Diabetes mellitus (Chronic) Degeneration of lumbosacral intervertebral disc (Chronic) Lumbosacral spondylosis (Chronic) History of left heart catheterization (Chronic ~01/2014) 01/2013, 01/2014 COPD (chronic obstructive pulmonary disease) (Chronic) Bilateral lower extremity edema (Chronic) Morbid obesity with BMI of 45.0-49.9, adult (Chronic) Non-alcoholic cirrhosis (Chronic) GERD (gastroesophageal reflux disease) (Chronic) Hypertension (Chronic) LUIS (obstructive sleep apnea) (Chronic) Tremor (Chronic) Anxiety (Chronic) Medical History: Medical History (Last Updated 04/29/18 @ 15:18 by Cee Mcnulty DO) Palpitations (Chronic) R00.2 COPD (chronic obstructive pulmonary disease) (Chronic) J44.9 Bilateral lower extremity edema (Chronic) R60.0 Morbid obesity with BMI of 45.0-49.9, adult (Chronic) E66.01, Z68.42 Non-alcoholic cirrhosis (Chronic) GERD (gastroesophageal reflux disease) (Chronic) K21.9 Hypertension (Chronic) I10 LUIS (obstructive sleep apnea) (Chronic) G47.33 Tremor (Chronic) R25.1 Anxiety (Chronic) F41.9 Dizziness and giddiness R42 Edema R60.9 Shortness of breath R06.02 History of hysterectomy Z90.710 Blister (nonthermal), left knee, initial encounter (Inactive) S80.222A Chest pain (Inactive) R07.9 Allergies morphine Allergy (Verified 12/01/18 18:51) Itching nifedipine [From Procardia] Adverse Reaction (Verified 12/01/18 23:56) Causes elevated BP Home Medications: Ambulatory Orders Medication Instructions Recorded Furosemide 40 mg PO BID 02/05/16 fluoxetine 40 mg capsule 40 mg PO DAILY 12/29/17 apixaban 5 mg tablet 5 mg PO BID tab 07/21/18 trazodone 100 mg tablet 100 mg PO QHS 30 Days #30 07/21/18 Lamotrigine [Lamictal] 100 mg PO QHS 08/06/18 cholecalciferol (vitamin D3) 50,000 unit PO LUDWIG 30 Days #4 cap 09/07/18 50,000 unit capsule gabapentin 600 mg tablet 600 mg PO BID 30 Days #30 tab 09/07/18 Ascorbic Acid [Vitamin C] 1,500 mg PO DAILY 10/27/18 Baclofen 10 mg PO TID 10/27/18 Lorazepam [Ativan] 1 mg PO BID PRN 10/27/18 Metoprolol Tartrate 75 mg PO BID 10/27/18 Oxybutynin Chloride 10 mg PO BID 10/27/18 Potassium Chloride [Klor-Con M20] 40 meq PO BID 10/27/18 Simvastatin 40 mg PO QHS 10/27/18 S-Adenosylmethionine Sul Tosyl 400 mg PO BID 12/01/18 [Ray-E] Diltiazem HCl [Diltiazem 24Hr ER] 240 mg PO DAILY 12/02/18 Surgical History: Surgical History (Last Updated 03/31/18 @ 10:24 by John Braswell) History of left heart catheterization (Chronic) Onset Date: ~01/2014 Z98.890 01/2013, 01/2014 History of carpal tunnel release Z98.890 History of carpal tunnel release of both wrists Z98.890 History of tonsillectomy and adenoidectomy Z98.890 History of total left knee replacement (TKR) Z96.652 History of total right knee replacement (TKR) Z96.651 Hx of cholecystectomy Z90.49 vaginal fistula repair Surgical History: - - T+A, Cholecystectomy, Hysterectomy, Vaginal fistula repairs, L TKR, Bunion/hammertoe RLE, Carpal tunnel BL. 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 history Smoking Status: Former smoker - *Family History Maternal Family History: Family History (Last Updated 03/31/18 @ 10:24 by John Braswell) Mother Breast cancer Diabetes Brother Cancer History Items: Diabetes Paternal Family History: Family History (Last Updated 03/31/18 @ 10:24 by John Braswell) Mother Breast cancer Diabetes Brother Cancer History Items: Cancer Patient Problems: Active and Suspected Problems (Last Updated 04/29/18 @ 15:18 by Cee Mcnulty DO) Acute fall (Acute) Fracture of femur, distal, left, closed (Acute) Objective: On exam patient is resting comfortably in the hospital bed. Vital signs are stable and patient is currently afebrile. On auscultation patient currently is an irregular irregular rhythm. Abdomen is soft nontender to palpation with bowel sounds present 4 quadrants. Left knee reveals patient in knee immobilizer. Upon loosening the knee immobilizer there is no evidence of any wounds. Previous incision is well-healed without erythema or signs of infection. There is positive swelling to the left knee. Range of motion of the left knee was deferred secondary to fracture. Patient is able to actively plantarflex/dorsiflex left/right lower extremity. Sensation intact to saphenous, sural, superficial/deep peroneal, and tibial distribution bilaterally. Negative Homans bilaterally. - Physical Exam General: Alert, Oriented x3, Cooperative Vital Signs Temp Pulse Resp BP Pulse Ox 98.4 F 79 18 115/72 93 12/02/18 05:06 12/02/18 05:06 12/02/18 05:06 12/02/18 05:06 12/02/18 05:06 Oxygen Flow Rate (L/min) 2 Oxygen Delivery Method Room Air Weight: 124 kg Body Mass Index (BMI) 41.5 Intake and Output for Last 24 Hours 11/30/18 12/01/18 12/02/18 23:59 23:59 23:59 Intake Total 373 / 373 Balance 373 / 373 Laboratory Tests Past 24 Hrs 12/01/18 12/01/18 12/01/18 20:15 20:15 20:15 WBC 9.9 RBC 4.30 Hgb 12.5 Hct 40.1 MCV 93.3 MCH 29.1 MCHC 31.2 L RDW 14.9 H RDW Differential 50.5 H Plt Count 256 MPV 10.5 Immature Gran % (Auto) 0.600 Neut % (Auto) 68.7 Lymph % (Auto) 20.2 [place] % (Auto) 6.6 Eos % (Auto) 3.5 Baso % (Auto) 0.4 Absolute Neuts (auto) 6.8 Absolute Lymphs (auto) 2.00 Total Counted Not Reportable PT 15.8 H INR 1.3 APTT 29.7 Sodium 145 Potassium 3.4 L Chloride 106 Carbon Dioxide 32.0 Anion Gap 7 BUN 23 H Creatinine 0.73 Estim Creat Clear Calc 78.54 Est GFR (MDRD) Af Amer 103 Est GFR (MDRD) Non-Af 85 BUN/Creatinine Ratio 31.6 H Glucose 130 H Calcium 8.9 Magnesium 12/02/18 12/02/18 05:20 05:20 WBC 8.6 RBC 3.82 L Hgb 10.9 L Hct 35.9 L MCV 94.0 MCH 28.5 MCHC 30.4 L RDW 15.0 H RDW Differential 50.9 H Plt Count 239 MPV 10.3 Immature Gran % (Auto) 0.300 Neut % (Auto) 74.5 H Lymph % (Auto) 15.6 L [place] % (Auto) 6.4 Eos % (Auto) 2.9 Baso % (Auto) 0.3 Absolute Neuts (auto) 6.4 Absolute Lymphs (auto) 1.35 Total Counted Not Reportable PT INR APTT Sodium 144 Potassium 3.8 Chloride 108 H Carbon Dioxide 30.0 Anion Gap 6 BUN 23 H Creatinine 0.70 Estim Creat Clear Calc 81.90 Est GFR (MDRD) Af Amer 108 Est GFR (MDRD) Non-Af 89 BUN/Creatinine Ratio 32.7 H Glucose 111 H Calcium 8.0 L Magnesium 2.0 Assessment/Plan All Active Problems (Last Updated 04/29/18 @ 15:18 by Cee Mcnulty DO) Acute fall (Acute) Fracture of femur, distal, left, closed (Acute) Acute exacerbation of chronic obstructive pulmonary disease (COPD) (Resolved) Parainfluenza virus bronchopneumonia (Resolved) History of MRSA infection (Resolved) Non-healing wound of lower extremity (Acute) Allergic reaction due to correct medicinal substance properly administered (Resolved) Atrial fibrillation with RVR (Resolved) CAP (community acquired pneumonia) (Resolved) Cellulitis of lower leg (Resolved) Influenza B (Resolved) Laceration of head (Resolved) Metabolic alkalosis (Resolved) Pneumonia (Resolved) Syncope and collapse (Resolved) Diagnostic studies: 1. X-rays were reviewed from [facility] including femur and knee reveals a comminuted displaced fracture of the distal femur just proximal to the prosthesis. Fracture proceeded to the femoral prosthesis. There is apex dorsal angulation of the fracture. Tibia reveals a long cemented stem without evidence of fracture or loosening. Femur x-rays also do show degenerative changes of the left hip joint with joint space narrowing osteophyte formation. Assessment/plan: 1. Acute left comminuted distal femur periprosthetic fracture secondary to fall 2. Left hip osteoarthritis without evidence of fracture 3. Previous MRSA infection left knee 2017 4. Continue Pain Medications: Patient currently on [place] for pain control 5. Atrial fibrillation: Currently on Eliquis. Eliquis has been stopped in anticipation of surgery on Thursday. 6. PT/OT: Nonweightbearing left lower extremity. Continue with turns in the bed every 2 hours to prevent ulceration/bed sores. 7. H & H: 10.9/35.9, asymptomatic. Medicine has also ordered an A1c. Patient denies having diabetes mellitus but this is listed in her chart. Patient is currently not taking any medications for diabetes at home 8. Encouraged Incentive Spirometry 9. Continue medical treatment and care by medicine for multiple comorbidities 10. Disposition: Plan will be for surgical intervention of the left knee secondary to the acute comminuted left distal femur periprosthetic fracture. I discussed with the patient that she will most likely need a distal third femoral replacement. Anticipate this procedure will take over 3 hours due to hardware removal. Patient has stem in the distal tibia that will need to be removed. We will plan to proceed with surgical intervention as long as patient is medically cleared by medicine. Continue knee immobilizer of the left knee with no weightbearing left lower extremity. Continue with pain medications as above per medicine. Patient has discontinued the Eliquis in anticipation of surgery. Dr. Antonio Jenkins will evaluate the patient prior to surgery for consent.
[2018-12-02] MEDS: Polyethylene Glycol 3350 17 GM PACKET PO (10:49)
[2018-12-02] MEDS: Glucerna Shake 120 ML LIQUID PO (10:49)
[2018-12-02] MEDS: Famotidine 20 MG Tablet PO ×2 (10:50→21:14)
[2018-12-02 10:55] VITALS: BP 101/57; PULSE 83; RESP 16; TEMP 36.8; O2SAT 93
--- NOTE | 2018-12-02 13:14 | PN_ITS ---
<Demarcus Myrick - Last Filed: 12/02/18 13:07> Patient Problems: Active and Suspected Problems (Last Updated 04/29/18 @ 15:18 by Cee Mcnulty DO) Acute fall (Acute) Fracture of femur, distal, left, closed (Acute) Subjective: Pt c/o ongoing 8/10 pain in her leg. She denies numbness/tingling. She denies palp. She is not SOB. No N/V. Tolerating PO. + MARINO, at home she uses tylenol - will try this first. - Physical Exam General: Alert, Oriented x3, Cooperative HEENT: Atraumatic, PERRLA, EOMI, Normocephalic Neck: Supple, No JVD, Negative Carotid Bruits Lungs: Clear to auscultation, Normal air movement Cardiovascular: Regular rate, No murmurs Abdomen: Bowel Sounds Present, Soft, Non Tender Extremities: No edema, Capillary Refill Less than 3 Seconds Skin: No rashes, No breakdown Musculoskeletal: No Tenderness to Palpation of Joints or Extremities Neurological: Cranial nerves II-XII grossly intact Psych/Mental Status: Normal Affect, Appropriate, Alert and oriented to time, place, person, mood and affect Vital Signs Temp Pulse Resp BP Pulse Ox 98.2 F 83 16 101/57 L 93 12/02/18 10:55 12/02/18 10:55 12/02/18 10:55 12/02/18 10:55 12/02/18 10:55 Oxygen Flow Rate (L/min) 2 Oxygen Delivery Method Room Air Weight: 273 lb 5.971 oz Body Mass Index (BMI) 41.5 Intake and Output for Last 24 Hours 11/30/18 12/01/18 12/02/18 23:59 23:59 23:59 Intake Total 373 / 373 Balance 373 / 373 Laboratory Tests Past 24 Hrs 12/01/18 12/01/18 12/01/18 20:15 20:15 20:15 WBC 9.9 RBC 4.30 Hgb 12.5 Hct 40.1 MCV 93.3 MCH 29.1 MCHC 31.2 L RDW 14.9 H RDW Differential 50.5 H Plt Count 256 MPV 10.5 Immature Gran % (Auto) 0.600 Neut % (Auto) 68.7 Lymph % (Auto) 20.2 [place] % (Auto) 6.6 Eos % (Auto) 3.5 Baso % (Auto) 0.4 Absolute Neuts (auto) 6.8 Absolute Lymphs (auto) 2.00 Total Counted Not Reportable PT 15.8 H INR 1.3 APTT 29.7 Sodium 145 Potassium 3.4 L Chloride 106 Carbon Dioxide 32.0 Anion Gap 7 BUN 23 H Creatinine 0.73 Estim Creat Clear Calc 78.54 Est GFR (MDRD) Af Amer 103 Est GFR (MDRD) Non-Af 85 BUN/Creatinine Ratio 31.6 H Glucose 130 H Calcium 8.9 Magnesium 12/02/18 12/02/18 05:20 05:20 WBC 8.6 RBC 3.82 L Hgb 10.9 L Hct 35.9 L MCV 94.0 MCH 28.5 MCHC 30.4 L RDW 15.0 H RDW Differential 50.9 H Plt Count 239 MPV 10.3 Immature Gran % (Auto) 0.300 Neut % (Auto) 74.5 H Lymph % (Auto) 15.6 L [place] % (Auto) 6.4 Eos % (Auto) 2.9 Baso % (Auto) 0.3 Absolute Neuts (auto) 6.4 Absolute Lymphs (auto) 1.35 Total Counted Not Reportable PT INR APTT Sodium 144 Potassium 3.8 Chloride 108 H Carbon Dioxide 30.0 Anion Gap 6 BUN 23 H Creatinine 0.70 Estim Creat Clear Calc 81.90 Est GFR (MDRD) Af Amer 108 Est GFR (MDRD) Non-Af 89 BUN/Creatinine Ratio 32.7 H Glucose 111 H Calcium 8.0 L Magnesium 2.0 Medical Necessity - Tobacco Use Smoking Status: Former smoker Assessment/Plan All Active Problems (Last Updated 04/29/18 @ 15:18 by Cee Mcnulty DO) Acute fall (Acute) Fracture of femur, distal, left, closed (Acute) Acute exacerbation of chronic obstructive pulmonary disease (COPD) (Resolved) Parainfluenza virus bronchopneumonia (Resolved) History of MRSA infection (Resolved) Non-healing wound of lower extremity (Acute) Allergic reaction due to correct medicinal substance properly administered (Resolved) Atrial fibrillation with RVR (Resolved) CAP (community acquired pneumonia) (Resolved) Cellulitis of lower leg (Resolved) Influenza B (Resolved) Laceration of head (Resolved) Metabolic alkalosis (Resolved) Pneumonia (Resolved) Syncope and collapse (Resolved) 1. Acute comminuted, displaced, closed fracture of the distal femoral diaphysis, proximal to the femoral prosthesis secondary to fall at home. Dr. Jenkins is consulted and plans to take the patient to surgery. Eliquis has been discontinued and the patient will be cleared for surgery on Thursday. 2. Paroxysmal atrial fibrillation-Eliquis held as above. Last echo August 10, 2017 EF 45-50%. Currently rate is well controlled. Continue Lopressor and Cardizem 3. Hypokalemia-resolved 4. COPD-currently stable. As needed aerosols 5. Other chronic medical issues include history of morbid obesity, obstructive sleep apnea, GERD, MRSA of the lower extremity wound, known alcoholic cirrhosis, anxiety, hypertension. DVT prophylaxis: Eliquis currently held for surgery DC planning: PTOT postop, fall at home, may need placed. This patient was seen by Demarcus Myrick PA-C under the supervision of Doctor Marcelo. <Silviano Robertson F - Last Filed: 12/02/18 14:36> - Physical Exam Vital Signs Temp Pulse Resp BP Pulse Ox 98.2 F 83 16 101/57 L 93 12/02/18 10:55 12/02/18 10:55 12/02/18 10:55 12/02/18 10:55 12/02/18 10:55 Oxygen Flow Rate (L/min) 2 Oxygen Delivery Method Room Air Weight: 273 lb 5.971 oz Body Mass Index (BMI) 41.5 Intake and Output for Last 24 Hours 11/30/18 12/01/18 12/02/18 23:59 23:59 23:59 Intake Total 373 / 373 Output Total 800 / 800 Balance -427 / -427 Laboratory Tests Past 24 Hrs 12/01/18 12/01/18 12/01/18 20:15 20:15 20:15 WBC 9.9 RBC 4.30 Hgb 12.5 Hct 40.1 MCV 93.3 MCH 29.1 MCHC 31.2 L RDW 14.9 H RDW Differential 50.5 H Plt Count 256 MPV 10.5 Immature Gran % (Auto) 0.600 Neut % (Auto) 68.7 Lymph % (Auto) 20.2 [place] % (Auto) 6.6 Eos % (Auto) 3.5 Baso % (Auto) 0.4 Absolute Neuts (auto) 6.8 Absolute Lymphs (auto) 2.00 Total Counted Not Reportable PT 15.8 H INR 1.3 APTT 29.7 Sodium 145 Potassium 3.4 L Chloride 106 Carbon Dioxide 32.0 Anion Gap 7 BUN 23 H Creatinine 0.73 Estim Creat Clear Calc 78.54 Est GFR (MDRD) Af Amer 103 Est GFR (MDRD) Non-Af 85 BUN/Creatinine Ratio 31.6 H Glucose 130 H Calcium 8.9 Magnesium 12/02/18 12/02/18 05:20 05:20 WBC 8.6 RBC 3.82 L Hgb 10.9 L Hct 35.9 L MCV 94.0 MCH 28.5 MCHC 30.4 L RDW 15.0 H RDW Differential 50.9 H Plt Count 239 MPV 10.3 Immature Gran % (Auto) 0.300 Neut % (Auto) 74.5 H Lymph % (Auto) 15.6 L [place] % (Auto) 6.4 Eos % (Auto) 2.9 Baso % (Auto) 0.3 Absolute Neuts (auto) 6.4 Absolute Lymphs (auto) 1.35 Total Counted Not Reportable PT INR APTT Sodium 144 Potassium 3.8 Chloride 108 H Carbon Dioxide 30.0 Anion Gap 6 BUN 23 H Creatinine 0.70 Estim Creat Clear Calc 81.90 Est GFR (MDRD) Af Amer 108 Est GFR (MDRD) Non-Af 89 BUN/Creatinine Ratio 32.7 H Glucose 111 H Calcium 8.0 L Magnesium 2.0 Code Visit Addendum: Dr. Robertson I personally examined the patient and reviewed the chart. I agree with the above. 83-year-old male with a history of A. fib, COPD, morbid obesity, LUIS presenting after a fall leading to an acute comminuted displaced closed fracture of the distal femoral diaphysis. She will undergo surgery on Thursday. At this time will restart all of her medications and DC her IV fluids. She can eat until Thursday night. She is currently low to moderate risk for surgery and depending on how she does with sedation given her obesity, her history of COPD, and her history of LUIS, she may need to be transferred to the ICU after surgery if she is unable to be extubated. Inpatient E&M: [id number] [facility] L2
[2018-12-02] MEDS: Acetaminophen 325 MG Tablet 650 MG PO (13:25)
--- NOTE | 2018-12-02 14:30 | CASEMGMT ---
Social Work Assessment Referral Date: 12/02/2017 Date of Assessment: 12/02/2017 Reason for consult: Initial assessment Informant: STEFANIE Personal Status: SW met with pt to complete initial assessment. SW introduced self and role at [facility]. Pt is alert and orientated x4. Pt states that she lives with her brother and boyfriend in a one floor apartment with two steps to enter. Pt states that she takes care of her brother. Pt states that she was previously independent with ADLs. DME include a can but pt states I use the cane whenever. PT states PCP is DR. Grimaldo and preferred pharmacy is [facility]. Substance abuse Hx: Pt states that she used to smoke cigarettes but quit in 1998. Pt states that she used to be an alcoholic but quit in 1994. Pt states she still drinks occasionally but the last drink she had was two years ago on her birthday. Mental Health Hx: Pt states that she has a history of depression, bipolar, and anxiety. Pt states that she see's Deonna Clay (psychiatrist) and Lemuel (counselor) at [facility]. Pt states she has been seeing a counselor on and off for about 40 years. Pt states that she wishes to discharge home once medically cleared. STEFANIE informed pt that this worker and RN ISABEL will continue to follow along to assist with discharge planning and will wait to confirm discharge plans until pt has her surgery and works with PT/OT after surgery. Pt states understanding. Plan: Pt wishes to discharge home. STEFANIE and RN ISABEL to continue to follow along to assist with discharge planning. Ladonna Castro HOGSHEAD COOPER, PERSONAL INJURY LAW SPECIALIST
[2018-12-02] MEDS: Baclofen 10 MG Tablet PO ×2 (15:44→21:14)
[2018-12-02] MEDS: LORazepam 1 MG Tablet PO (15:44)
[2018-12-02] MEDS: FLUoxetine 20 MG Capsule 40 MG PO (15:44)
[2018-12-02 15:46] VITALS: BP 104/53; PULSE 94; RESP 16; TEMP 36.8; O2SAT 95
[2018-12-02] MEDS: Gabapentin 600 MG Tablet PO (15:53)
[2018-12-02] MEDS: Furosemide 40 MG Tablet PO (17:32)
[2018-12-02] MEDS: DiphenhydrAMINE 25 MG Capsule PO (20:02)
[2018-12-02] MEDS: Sodium Chloride 0.65% 1 SPRAY SPRAY.BTL NASAL (20:05)
[2018-12-02 20:08] VITALS: BP 109/59; PULSE 99; RESP 18; TEMP 36.9; O2SAT 94
[2018-12-02 21:14] VITALS: PULSE 102
[2018-12-02] MEDS: lamoTRIgine 100 MG Tablet PO (21:14)
[2018-12-02] MEDS: Atorvastatin Calcium 20 MG Tablet PO (21:14)
[2018-12-02] MEDS: Metoprolol Tartrate 50 MG, Metoprolol Tartrate 25 MG 75 MG PO (21:14)
[2018-12-02] MEDS: traZODone 100 MG Tablet PO (21:14)
[2018-12-03] VITALS (11 sets, daily range): BP systolic 97–118; BP diastolic 51–74; PULSE 72–102; RESP 18–20; TEMP 36.7–37.7; O2SAT 93–94
[2018-12-03] MEDS: Baclofen 10 MG Tablet PO ×2 (05:58→14:06)
[2018-12-03] MEDS: HYDROcodone Bitartrate/Apap 5/325 Tablet PO ×2 (06:03→12:45)
--- NOTE | 2018-12-03 07:21 | PN.ORTHO_ITS ---
Patient Problems: Active and Suspected Problems (Last Updated 04/29/18 @ 15:18 by Cee Mcnulty DO) Acute fall (Acute) Fracture of femur, distal, left, closed (Acute) Subjective: The patient was sitting in bed upon examination. Patient denies any chest pain, shortness of breath, dizziness, lightheadedness, nausea or vomiting, or calf pain. Pain is controlled on medications. Patient does report pain in the left knee. No adverse overnight events. Plan is for surgery on December 04, 2018 at 8 AM.. Objective: Vital signs stable and afebrile. Patient is able to plantarflex and dorsiflex actively. Sensation is intact to light touch to saphenous, sural, superficial and deep peroneal, and tibial distribution. Negative Homans bilaterally, negative signs and symptoms of DVT. - Physical Exam General: Alert, Oriented x3, Cooperative, No apparent distress Vital Signs Temp Pulse Resp BP Pulse Ox 98.5 F 82 18 108/62 94 12/03/18 02:30 12/03/18 06:19 12/03/18 02:30 12/03/18 06:19 12/03/18 02:30 Oxygen Flow Rate (L/min) 2 Oxygen Delivery Method Room Air Weight: 124 kg Body Mass Index (BMI) 41.5 Intake and Output for Last 24 Hours 12/01/18 12/02/18 12/03/18 23:59 23:59 23:59 Intake Total 2213 / 2213 200 / 200 Output Total 3650 / 3650 1450 / 1450 Balance -1437 / -1437 -1250 / -1250 Medical Necessity - Tobacco Use Smoking Status: Former smoker Assessment/Plan All Active Problems (Last Updated 04/29/18 @ 15:18 by Cee Mcnulty DO) Acute fall (Acute) Fracture of femur, distal, left, closed (Acute) Acute exacerbation of chronic obstructive pulmonary disease (COPD) (Resolved) Parainfluenza virus bronchopneumonia (Resolved) History of MRSA infection (Resolved) Non-healing wound of lower extremity (Acute) Allergic reaction due to correct medicinal substance properly administered (Resolved) Atrial fibrillation with RVR (Resolved) CAP (community acquired pneumonia) (Resolved) Cellulitis of lower leg (Resolved) Influenza B (Resolved) Laceration of head (Resolved) Metabolic alkalosis (Resolved) Pneumonia (Resolved) Syncope and collapse (Resolved) Assessment/plan: 1. Acute left comminuted distal femur periprosthetic fracture secondary to fall 2. Left hip osteoarthritis without evidence of fracture 3. Previous MRSA infection left knee 2016 4. Continue Pain Medications: Patient currently on [place] for pain control 5. Atrial fibrillation: Currently on Eliquis. Eliquis has been stopped in anticipation of surgery on Thursday. 6. PT/OT: Nonweightbearing left lower extremity. Continue with turns in the bed every 2 hours to prevent ulceration/bed sores. 7. Continue medical treatment and care by medicine for multiple comorbidities 8. Disposition: Plan will be for surgical intervention of the left knee secondary to the acute comminuted left distal femur periprosthetic fracture. I discussed with the patient that she will most likely need a distal third femoral replacement. Anticipate this procedure will take over 3 hours due to hardware removal. Plan for surgery is tomorrow December 04, 2018 at 8 AM. Patient has stem in the distal tibia that will need to be removed. We will plan to proceed with surgical intervention as long as patient is medically cleared by medicine. Continue knee immobilizer of the left knee with no weightbearing left lower extremity. Continue with pain medications as above per medicine. Patient has discontinued the Eliquis in anticipation of surgery. Dr. Antonio Jenkins will evaluate the patient prior to surgery for consent.
[2018-12-03] MEDS: Furosemide 40 MG Tablet PO ×2 (09:49→17:45)
[2018-12-03] MEDS: dilTIAZem CD 240 MG Capsule PO (09:50)
[2018-12-03] MEDS: Gabapentin 600 MG Tablet PO ×2 (09:50→17:45)
[2018-12-03] MEDS: Polyethylene Glycol 3350 17 GM PACKET PO (09:51)
[2018-12-03] MEDS: Famotidine 20 MG Tablet PO ×2 (09:51→22:20)
[2018-12-03] MEDS: FLUoxetine 20 MG Capsule 40 MG PO (09:52)
[2018-12-03] MEDS: Metoprolol Tartrate 50 MG, Metoprolol Tartrate 25 MG 75 MG PO ×2 (12:45→22:20)
[2018-12-03] MEDS: 0.9% NaCl Peripheral Flush Adult/Peds IV (14:07)
--- NOTE | 2018-12-03 14:12 | CHAPLAIN ---
Type of Pastoral Visit _x__ Initial Visit ___ Follow-up Visit ___ On-call Visit ___ General Patient Visit ___ Spiritual Assessment ___ Family Conference ___ Bereavement ___ Rapid Response ___ Code Blue ___ Other (describe below) Pastoral Care Referral From _x__ Patient ___ Family ___ Nurse ___ Physician ___ Flume Maker ___ Clearance Rep ___ Other (describe below) Sacrament/Intervention _x__ Active listening ___ Anointing ___ Orthodox _x__ Bereavement ___ Communion _x__ Elke exploration ___ _x__ Life review _x__ Prayer ___ Reconciliation ___ Sacrament of Sick _x__ Supportive presence ___ Wedding ___ Other (describe below) Pastoral Comments patient is dealing with of her daughter last year and has spiritual questions; pt facing surgery and facing need to be well so she can offer care of her family
--- NOTE | 2018-12-03 14:27 | PN_ITS ---
<Demarcus Myrick - Last Filed: 12/03/18 14:25> Patient Problems: Active and Suspected Problems (Last Updated 04/29/18 @ 15:18 by Cee Mcnulty DO) Acute fall (Acute) Fracture of femur, distal, left, closed (Acute) Subjective: C/o 10/10 pain when pain meds are due. No n/v. Tolerating PO. No SOB/wheezing. - Physical Exam General: Alert, Oriented x3, Cooperative HEENT: Atraumatic, PERRLA, EOMI, Normocephalic Neck: Supple, No JVD, Negative Carotid Bruits Lungs: Clear to auscultation, Normal air movement Cardiovascular: Regular rate, No murmurs Abdomen: Bowel Sounds Present, Soft, Non Tender Extremities: No edema, Capillary Refill Less than 3 Seconds Skin: No rashes, No breakdown Musculoskeletal: No Tenderness to Palpation of Joints or Extremities Neurological: Cranial nerves II-XII grossly intact Psych/Mental Status: Normal Affect, Appropriate, Alert and oriented to time, place, person, mood and affect Vital Signs Temp Pulse Resp BP Pulse Ox 99.8 F H 93 18 118/74 93 12/03/18 14:08 12/03/18 14:08 12/03/18 14:08 12/03/18 14:08 12/03/18 14:08 Oxygen Flow Rate (L/min) 2 Oxygen Delivery Method Room Air Weight: 273 lb 5.971 oz Body Mass Index (BMI) 41.5 Intake and Output for Last 24 Hours 12/01/18 12/02/18 12/03/18 23:59 23:59 23:59 Intake Total 2213 / 2213 700 / 700 Output Total 3650 / 3650 2049 Balance -1437 / -1437 -1350 / -1350 Medical Necessity - Tobacco Use Smoking Status: Former smoker Assessment/Plan All Active Problems (Last Updated 04/29/18 @ 15:18 by Cee Mcnulty DO) Acute fall (Acute) Fracture of femur, distal, left, closed (Acute) Acute exacerbation of chronic obstructive pulmonary disease (COPD) (Resolved) Parainfluenza virus bronchopneumonia (Resolved) History of MRSA infection (Resolved) Non-healing wound of lower extremity (Acute) Allergic reaction due to correct medicinal substance properly administered (Resolved) Atrial fibrillation with RVR (Resolved) CAP (community acquired pneumonia) (Resolved) Cellulitis of lower leg (Resolved) Influenza B (Resolved) Laceration of head (Resolved) Metabolic alkalosis (Resolved) Pneumonia (Resolved) Syncope and collapse (Resolved) 1. Acute comminuted, displaced, closed fracture of the distal femoral diaphysis, proximal to the femoral prosthesis secondary to fall at home. Dr. Jenkins is consulted and plans to take the patient to surgery. Eliquis has been discontinued and the patient will go to surgery thursday. 2. Paroxysmal atrial fibrillation-Eliquis held as above. Last echo August 10, 2017 EF 45-50%. Currently rate is well controlled. Continue Lopressor and Cardizem 3. Hypokalemia-resolved 4. COPD-currently stable. As needed aerosols 5. Other chronic medical issues include history of morbid obesity, obstructive sleep apnea, GERD, MRSA of the lower extremity wound, known alcoholic cirrhosis, anxiety, hypertension. DVT prophylaxis: Eliquis currently held for surgery DC planning: PTOT postop, fall at home, may need placed. This patient was seen by Demarcus Myrick PA-C under the supervision of Doctor Rosendo weller. <Silviano Robertson F - Last Filed: 12/03/18 16:17> - Physical Exam Vital Signs Temp Pulse Resp BP Pulse Ox 99.8 F H 93 18 118/74 93 12/03/18 14:08 12/03/18 14:08 12/03/18 14:08 12/03/18 14:08 12/03/18 14:27 Oxygen Flow Rate (L/min) 2 Oxygen Delivery Method Room Air Weight: 273 lb 5.971 oz Body Mass Index (BMI) 41.5 Intake and Output for Last 24 Hours 12/01/18 12/02/18 12/03/18 23:59 23:59 23:59 Intake Total 2213 / 2213 700 / 700 Output Total 3650 / 3650 2049 / 2049 Balance -1437 / -1437 -1350 / -1350 Code Visit Addendum: Dr. Robertson I personally examined the patient and reviewed the chart. I agree with the above. 63-year-old female with history of A. fib, COPD, morbid obesity, LUIS presenting after a fall leading to an acute comminuted displaced closed fracture of the distal femoral diaphysis. Plan is for her to undergo surgery on Thursday. She can continue all of her home meds and continue her diet for today, she will need to be n.p.o. tonight. We will discuss with surgery when she can restart her Eliquis. Inpatient E&M: 23748 Subs Hosp L2
[2018-12-03 19:00] LABS: Bedside Glucose 149 mg/dL (70-110)
[2018-12-03] MEDS: Ipratropium/Albuterol Sulfate 3 ML AMPUL.NEB INHALATION (19:40)
--- NOTE | 2018-12-03 20:15 | CT_ITS ---
STUDY: CT BRAIN WITHOUT CONTRAST REASON FOR EXAM: Female, 63 years old. Involuntary movement of upper extremity RADIATION DOSAGE (If Supplied By Facility): CTDIvol = ( 44.99 ) mGy, DLP = ( 829.85 ) mGycm TECHNIQUE: Transaxial CT imaging of the brain was performed without administration of intravenous contrast material. Individualized dose optimization techniques were used for this CT. COMPARISON: December 01, 2018 FINDINGS: Small hematoma overlying the left occipital bone without associated skull fracture. Normal size ventricles and extra-axial spaces for the patient's age. Mild periventricular white matter ischemic changes.. Normal basal ganglia and thalami. Normal brainstem. Normal cerebellum. There is no intracranial hemorrhage. There are no findings of an acute ischemic infarction. Small mucous retention cyst in left maxillary sinus The hematoma in the scalp has decreased in size significantly since prior study. No other significant change CT/Brain/Head without Contrast IMPRESSION: Small persistent hematoma in the scalp overlying left occipital bone without skull fracture or acute intracranial bleed Mild periventricular white matter ischemic changes Electronically Signed: Dakotah White MD at 22:22 EST , Service support ,
--- NOTE | 2018-12-03 20:18 | EKG12_ITS ---
Test Reason : NEURO SX Blood Pressure : / mmHG Vent. Rate : 084 BPM Atrial Rate : 227 BPM P-R Int : 000 ms QRS Dur : 090 ms QT Int : 424 ms P-R-T Axes : 000 -07 -10 degrees QTc Int : 501 ms Atrial fibrillation Nonspecific ST and T wave abnormality Prolonged QT Abnormal ECG Confirmed by LUCILA FERNANDEZ, NITESH ([id number]), supervising film or videotape editor ABI CRAIG ([id number]) on 12/09/2018 8:37:13 AM Referred By: JOSE Confirmed By:NITESH GAYTAN MD
--- NOTE | 2018-12-03 20:18 | PCM.HOSP.N ---
Hospitalist Note Nurse called me to evaluate the patien for the concern of weakness of upper extremities and drowsy and lethargic and abnormal behavior Seen and examined. Patient has involuntary movement of proximal muscles in both upper arms. Not able to hold both upper extremity for 10 seconds. Patient is tearful feels like something is wrong with her. Denies change in vision or loss of vision. NIH stroke scale done Patient is not able to hold upper extremity for 10 seconds but seems she is confused. Doesn't look like stroke but medication side effects as she is on Prozac, trazodone, lamotrigine, baclofen and [place]. The patient has a history of anxiety and tremor but denies history of seizure disorder but she is on Lamictal. Seems she might have a history of bipolar. CT head without contrast is ordered EKG 12-lead ordered to check for QTc interval. Previous EKG of 02 December 2018 shows A. fib with QTC 470 ms Discontinue baclofen. Decrease trazodone to 50 mg at bedtime as needed only for insomnia. Avoid Ativan 1 leave patient goes in withdrawal are absolutely needed. Active Medications Acetaminophen (Tylenol) 650 mg PO Q6H PRN PRN PRN Reason: Mild Pain (scale 0-3)/T>100.7 Last Admin: 12/02/18 13:25 Dose: 650 mg Hydrocodone Bitart/Acetaminophen ([place] 5mg-325mg) 1 - 2 tablet PO Q4H PRN PRN PRN Reason: MODERATE PAIN (4-5/10) Last Admin: 12/03/18 12:45 Dose: 2 tablet Al Hydroxide/Mg Hydroxide (Mylanta Ii) 30 ml PO Q6H PRN PRN PRN Reason: Gastric Burning Albuterol/Ipratropium (Duoneb) 3 ml INHALATION Q4HWA.RT [facility] Last Admin: 12/03/18 19:40 Dose: 3 ml Atorvastatin Calcium (Lipitor) 20 mg PO QHS [facility] Last Admin: 12/02/18 21:14 Dose: 20 mg Bisacodyl (Dulcolax) 10 mg RECTAL DAILY PRN PRN PRN Reason: Constipation Diltiazem HCl (Cardizem Cd) 240 mg PO DAILY [facility] Last Admin: 12/03/18 09:50 Dose: 240 mg Docusate Sodium (Colace) 200 mg PO BID PRN PRN PRN Reason: Constipation Famotidine (Pepcid) 20 mg PO BID [facility] Last Admin: 12/03/18 09:51 Dose: 20 mg Fluoxetine HCl (Prozac) 40 mg PO DAILY [facility] Last Admin: 12/03/18 09:52 Dose: 40 mg Furosemide (Lasix) 40 mg PO BIDLX [facility] Last Admin: 12/03/18 17:45 Dose: 40 mg Gabapentin (Neurontin) 600 mg PO BIDCM [facility] Last Admin: 12/03/18 17:45 Dose: 600 mg Sodium Chloride () 1,000 mls @ 15 mls/hr IV .Q48H [facility] Last Admin: 12/01/18 20:29 Dose: 15 mls/hr Cefazolin Sodium 3 gm/ (Dextrose) 130 mls @ 150 mls/hr IV SEND TO OR W/PATIENT ONE Stop: 12/04/18 07:51 Lamotrigine (Lamictal) 100 mg PO QHS [facility] Last Admin: 12/02/18 21:14 Dose: 100 mg Lorazepam (Ativan) 0.5 mg PO BID PRN PRN Reason: ANXIETY Metoprolol Tartrate 50 mg/ (Metoprolol Tartrate 25 mg) 75 mg PO BID [facility] Last Admin: 12/03/18 12:45 Dose: 75 mg Nutritional Formula (Lactose Free) (Ensure Enlive) 120 ml PO 4X/DAY [facility] Last Admin: 12/03/18 17:44 Dose: 120 ml Ondansetron HCl (Zofran) 4 mg IV Q8H PRN PRN PRN Reason: Nausea Polyethylene Glycol (Miralax) 17 gm PO DAILY [facility] Last Admin: 12/03/18 09:51 Dose: 17 gm Sodium Chloride () 5 - 15 ml IV UD PRN PRN Reason: SALINE FLUSH Last Admin: 12/03/18 14:07 Dose: 10 ml Sodium Chloride ([place] Nasal [place]) 1 spray NASAL TID PRN PRN PRN Reason: NASAL DRYNESS Last Admin: 12/02/18 20:05 Dose: 1 spray Trazodone HCl (Desyrel) 50 mg PO QHS PRN PRN PRN Reason: insomnia Zolpidem Tartrate (Ambien (Generic)) 5 mg PO QHS PRN PRN PRN Reason: INSOMNIA
--- NOTE | 2018-12-03 20:24 | CCHN_ITS ---
Hospitalist Note Nurse called me to evaluate the patien for the concern of weakness of upper extremities and drowsy and lethargic and abnormal behavior Seen and examined. Patient has involuntary movement of proximal muscles in both upper arms. Not able to hold both upper extremity for 10 seconds. Patient is tearful feels like something is wrong with her. Denies change in vision or loss of vision. NIH stroke scale done Patient is not able to hold upper extremity for 10 seconds but seems she is confused. Doesn't look like stroke but medication side effects as she is on Prozac, trazodone, lamotrigine, baclofen and [place]. The patient has a history of anxiety and tremor but denies history of seizure disorder but she is on Lamictal. Seems she might have a history of bipolar. CT head without contrast is ordered EKG 12-lead ordered to check for QTc interval. Previous EKG of 02 December 2018 shows A. fib with QTC 470 ms Discontinue baclofen. Decrease trazodone to 50 mg at bedtime as needed only for insomnia. Avoid Ativan 1 leave patient goes in withdrawal are absolutely needed. Active Medications Acetaminophen (Tylenol) 650 mg PO Q6H PRN PRN PRN Reason: Mild Pain (scale 0-3)/T>100.7 Last Admin: 12/02/18 13:25 Dose: 650 mg Hydrocodone Bitart/Acetaminophen ([place] 5mg-325mg) 1 - 2 tablet PO Q4H PRN PRN PRN Reason: MODERATE PAIN (4-5/10) Last Admin: 12/03/18 12:45 Dose: 2 tablet Al Hydroxide/Mg Hydroxide (Mylanta Ii) 30 ml PO Q6H PRN PRN PRN Reason: Gastric Burning Albuterol/Ipratropium (Duoneb) 3 ml INHALATION Q4HWA.RT [facility] Last Admin: 12/03/18 19:40 Dose: 3 ml Atorvastatin Calcium (Lipitor) 20 mg PO QHS [facility] Last Admin: 12/02/18 21:14 Dose: 20 mg Bisacodyl (Dulcolax) 10 mg RECTAL DAILY PRN PRN PRN Reason: Constipation Diltiazem HCl (Cardizem Cd) 240 mg PO DAILY [facility] Last Admin: 12/03/18 09:50 Dose: 240 mg Docusate Sodium (Colace) 200 mg PO BID PRN PRN PRN Reason: Constipation Famotidine (Pepcid) 20 mg PO BID [facility] Last Admin: 12/03/18 09:51 Dose: 20 mg Fluoxetine HCl (Prozac) 40 mg PO DAILY [facility] Last Admin: 12/03/18 09:52 Dose: 40 mg Furosemide (Lasix) 40 mg PO BIDLX [facility] Last Admin: 12/03/18 17:45 Dose: 40 mg Gabapentin (Neurontin) 600 mg PO BIDCM [facility] Last Admin: 12/03/18 17:45 Dose: 600 mg Sodium Chloride () 1,000 mls @ 15 mls/hr IV .Q48H [facility] Last Admin: 12/01/18 20:29 Dose: 15 mls/hr Cefazolin Sodium 3 gm/ (Dextrose) 130 mls @ 150 mls/hr IV SEND TO OR W/PATIENT ONE Stop: 12/04/18 07:51 Lamotrigine (Lamictal) 100 mg PO QHS [facility] Last Admin: 12/02/18 21:14 Dose: 100 mg Lorazepam (Ativan) 0.5 mg PO BID PRN PRN Reason: ANXIETY Metoprolol Tartrate 50 mg/ (Metoprolol Tartrate 25 mg) 75 mg PO BID [facility] Last Admin: 12/03/18 12:45 Dose: 75 mg Nutritional Formula (Lactose Free) (Ensure Enlive) 120 ml PO 4X/DAY [facility] Last Admin: 12/03/18 17:44 Dose: 120 ml Ondansetron HCl (Zofran) 4 mg IV Q8H PRN PRN PRN Reason: Nausea Polyethylene Glycol (Miralax) 17 gm PO DAILY [facility] Last Admin: 12/03/18 09:51 Dose: 17 gm Sodium Chloride () 5 - 15 ml IV UD PRN PRN Reason: SALINE FLUSH Last Admin: 12/03/18 14:07 Dose: 10 ml Sodium Chloride ([place] Nasal [place]) 1 spray NASAL TID PRN PRN PRN Reason: NASAL DRYNESS Last Admin: 12/02/18 20:05 Dose: 1 spray Trazodone HCl (Desyrel) 50 mg PO QHS PRN PRN PRN Reason: insomnia Zolpidem Tartrate (Ambien (Generic)) 5 mg PO QHS PRN PRN PRN Reason: INSOMNIA
[2018-12-03] MEDS: Atorvastatin Calcium 20 MG Tablet PO (22:20)
[2018-12-03] MEDS: lamoTRIgine 100 MG Tablet PO (22:20)
[2018-12-03] MEDS: 0.9% Normal Saline 1,000 ML 15 ML IV (22:25)
[2018-12-04] VITALS (24 sets, daily range): BP systolic 89–138; BP diastolic 60–107; PULSE 74–119; RESP 16–20; TEMP 36.3–36.9; O2SAT 92–96; BMI 41.5; BMI 41.6
[2018-12-04 05:47] LABS: Absolute Lymphocyte Count 1.85 X10^3/ul (0.83-4.51); Basophil# 0.05 X10^3/uL; Basophil% 0.5 % (0-1); Eosinophil# 0.58 X10^3/uL; Eosinophils% 5.7 % (0-5); Hematocrit 36.7 % (37-47); Hemoglobin 11.6 g/dl (12.0-15.0); Lymphocyte # 1.85 X10^3/ul (4.0); Lymphocyte % 18.2 % (19-41); Mean Corp Hgb Conc 31.6 g/gl (32-36); Mean Corpuscular Hgb 29.6 pg (27.0-32.0); Mean Corpuscular Volume 93.6 fL (81-99); Mean Platelet Vol. 10.8 fl (6.2-12.0); Monocyte# 0.67 X10^3/uL; Monocyte% 6.6 % (0-10); Neutrophil # 6.96 X10^3/uL (2.7-7.7); Neutrophil % 68.5 % (47-70); Platelet Count 244 K/mm3 (150-450); RBC Distribution Width CV 14.9 % (11.6-14.6); RBC Distribution Width SD 48.9 fl (35.1-43.9); Red Blood Count 3.92 M/mm3 (4.2-5.4); White Blood Count 10.2 K/mm3 (4.4-11.0)
--- NOTE | 2018-12-04 05:55 | EKG12_ITS ---
Test Reason : AM EKG Blood Pressure : / mmHG Vent. Rate : 075 BPM Atrial Rate : 089 BPM P-R Int : 000 ms QRS Dur : 094 ms QT Int : 422 ms P-R-T Axes : 000 -07 005 degrees QTc Int : 471 ms Atrial fibrillation Abnormal ECG Confirmed by LUCILA FERNANDEZ, NITESH ([id number]), editorial project manager ABI CRAIG ([id number]) on 12/09/2018 8:37:01 AM Referred By: JOSE Confirmed By:NITESH GAYTAN MD
[2018-12-04 06:00] LABS: Anion Gap 5 (5-15); BUN 17 mg/dL (7-18); BUN/Creat Ratio 21.2 RATIO (10-20); Calcium,Total 8.4 mg/dL (8.5-10.1); Chloride 100 mmol/L (98-107); EST Glomerular Filtration Rate 77 mL/min (>60); Est Glom Filt Rate - Afr Amer 93 mL/min (>60); Estimated Creatinine Clearance 71.67 ml/min; Glucose 101 mg/dL (74-106); Phosphorus 3.5 mg/dL (2.5-4.9); Potassium 3.5 mmol/L (3.5-5.1); Sodium Level 142 mmol/L (136-145)
[2018-12-04 06:01] LABS: POSITIVE COUNT NO; POSITIVE DIFFERENTIAL NO; POSITIVE MORPHOLOGY NO
[2018-12-04] MEDS: Ipratropium/Albuterol Sulfate 3 ML AMPUL.NEB INHALATION ×4 (07:00→23:00)
[2018-12-04] MEDS: Potassium Chloride 10mEq/100mL 10 MEQ/100 ML IV.SOLN. 100 MEQ IV BOLUS ×2 (07:04→14:06)
[2018-12-04 08:49] LABS: Hemoglobin A1c 5.4 % (4.2-6.3)
[2018-12-04] MEDS: Vancomycin IV 1,000 MG/20 ML Vial 2000 MG OPERA.SITE (09:30)
--- NOTE | 2018-12-04 10:45 | PCA ---
pt off floor
--- NOTE | 2018-12-04 12:19 | PCM.OPRPT ---
Report of Operation Date of Procedure: 12/04/18 Pre-Operative Diagnosis: Left periprosthetic distal femur fracture Post-Operative Diagnosis: Left comminuted periprosthetic distal femur fracture Surgery/Procedure Performed:: Revision left total knee replacement entire femoral and tibial component Description of Surgical Findings:: Severe comminution and evidence of implant loosening from the injury was noted intraoperatively. Leg lengths appear equal during surgery based on medial malleoli. Good patella tracking. stencil machine operator: Pablito Dhillon Type of Anesthesia:: General Anesthesiologist: Rebecca Fulton Special Medications: 3 g Ancef, 2 g TXA 1 minute lavage and wound prior to closure, 10 mg Decadron, joint cocktail (5 mg Duramorph, 30 mL of 0.5% Ropivicaine, 1000 units of epinephrine, 30 mg of Toradol), 2 additional grams Ancef 2-1/2 hours after incision. 1 g of vancomycin in cement mantle. 1 g of vancomycin powder and wound. Specimen's removed: 3 separate specimens were sent to microbiology Estimated Blood Loss (mL): 300 Fluids Replaced: 2 L crystalloid Description of Procedure: On the date of the procedure patient's left lower extremity was marked in the preoperative area. Patient was brought back to the operating room where there transferred to the table in the supine position. Anesthesia assumed control of the C-spine and airway remained to control throughout the remainder of the procedure. All bony prominences were identified and well-padded. After anesthesia was administered a tourniquet was placed in the left upper thigh. At this time based on the patient's size of a BMI of 41 and the instability of the fracture my assistant golf professional had to help hold the leg is the leg was prepped. While the leg was being prepped surgeon scrubbed. Upon reentering the room left lower extremity was draped in a standard orthopedic fashion with the help of my tech well to people held the leg. Once this was appropriately draped the incision was marked out. Previous incision was used extending it proximally and distally 2 cm. Timeout was called at this time and everyone agreed upon the side, the site, the procedure be performed, patient's identity and antibiotics given. Esmarch bandage was used to exsanguinate the extremity. Based on the patient's size and instability of the leg to people had to hold the leg while the Esmarch was placed. Knee was flexed tourniquet was placed up to 250 mmHg. Incision was taken down through skin subtenons tissue fat down to fascia. Appropriate medial lateral flaps were raised. Once we identified the extensor mechanism a standard medial parapatellar arthrotomy was made was made proximal enough getting into the vastus medialis in order to get to the proximal portion of the fracture. Once we entered the wound were able to identify the fracture. They were fragments of bone that were associated from the implant. The entire lateral femoral condyle was dissociated from the implant and distal femur. There was several pieces of comminution. At this time the distal femur was debrided and placed on the back table all, need pieces were debrided and placed on the back table. A cleanup cut was made on the distal femur. Based on the fragments debrided we determine an estimate with the standard size body and 30 mm augment. The distal femur was exposed by my assistant golf professional with retractors and using a lap sponge to elevate the distal femur. We then used flexible reamers in order to ream up to 15 mm where he had good chatter in the femur. At this time based on the previous tibial implant we trialed the femoral implants and noted that a 40 mm augment was better. This help us get the joint line down to where it was previously. Once this was done we removed the femoral component and exposed the tibia. Once the tibia was adequately exposed the tibia had a long stem with a offset. Patient had osteopenic bone. We used this thin saw first to separate the bone cement interface then a thicker sole in order to give us room to use the osteotomes. Once the entire baseplate/bone/cement interface was disrupted we attempted to back slap the implant however the cement was fixed distally. Based on the kink from the office that we knew we had to remove some of the cement prior to explanting the tibia. At this time using cortical windows we were able to debride some of the cement over the shoulder of the offset. We did this very carefully using a bur and osteotomes. We used fluid in order to decrease the amount of heat. Once the cement had adequately been debrided and we could visualize the shoulder through the windows we again attempted to back slap the tibia. This then did come out. It took 4 times of carefully debriding cement and attempting to back slap before we could get the implant out safely. We were able to get the implant out without additional significant bone loss or major fractures. However, this did take us additional time due to the size of the implants stems and the offset. We spent at least an additional 45 minutes on this portion of the case in order to avoid complications. Once this was removed we removed the remainder of the cement mantle distally using drills and osteotomes. At this point we then began to prep the tibia for implants. First we reamed the proximal tibia for a cone a size E cone was selected. Contrast was put into place and a perpendicular cut was made using the extra medullary guide on the proximal tibia. Once a perpendicular cut was made a medium tibial baseplate was selected. It was pinned in place in appropriate external rotation heel punch was made and the box was reamed. We then selected a 40 mm tibial stem and 10 mm augment. We placed the tibial trial and trialed the femur once more. With a 13 mm polyethylene leg lengths were equal and patella appeared to track well without appreciable impingement until about 110 degrees. At this time the trial components were removed. 6 L of normal saline were used to irrigate the wound under low pressure lavage. We started the lavage the tourniquet was let down. After the lavage hemostasis was obtained. No significant vascular injuries were noted in the posterior knee. We then placed the tourniquet back up for cementing. We mixed 2 batches of cement separately. One batch was mixed with an additional gram of vancomycin and placed around the femoral components body as a additional nonbiodegradable antibiotic spacer as this procedure has a high infection rate. The other active cement was mixed in a gun and used to pressurize the tibial canal after a cement restrictor was placed. Prior to repressurized and the canal cement the tibial cone had been put into place and was solidly fixed. Once the tibia canal was pressurized with cement we then cemented the millimeters augment on the backside of the tibia and cemented the tibia into place. Once the tibia cement was cured we directed our attention to the femur. Femoral canal was cleaned up and dried. Additional batch of cement was mixed and the femoral canal was pressurized and using the previous marking for external rotation the femur was cemented in the appropriate place. After the femoral cement cured we again trialed the appropriate tibial polyethylene and noted that a 13 mm polyethylene was appropriate. Final components were opened for the bushings and the polyethylene and assembled. The hinged component was assembled into place with a 3 degree bumper. It was let down and hemostasis was obtained. 2 g of TXA were used to lavage the wound for 1 minute followed by normal saline. A lateral drain was placed. Vancomycin was placed. The arthrotomy was closed #1 Vicryl. Skin was closed with 2-0 Vicryl and 3-0 nylon. Sterile dressing was placed. She was awakened by anesthesia and transferred to the PACU for recovery. Postoperative plan: Patient will wear a knee immobilizer for 2 weeks to protect the wound. At 2 weeks she will start range of motion and strengthening. We will do partial weightbearing for 6 weeks 50%. Patient can restart her Eliquis tomorrow for DVT prophylaxis and treatment. She will be placed on doxycycline for 1 week as we follow cultures. Implants: Femur: standard left distal femur for GMR S with appropriate bushings. 40 mm body, 13 mm stem with standard attached body. Tibia: Starr M2 tibia for hinged implant. 40 mm stem. 10 mm augment. 13 mm polyethylene. Size E Cone. Based on the complexity of this case and modifier 22 should be considered. Patient size added to the complexity of the case with a BMI of 41+. In addition the tibial stem took a significant amount of additional time adding roughly an hour to the case. This is typically a 3-hour case that took 4 hours, 33% longer. Grafts/Implants Used: [place] GMR S distal femoral replacement - Complications None - Admit VTE Documentation VTE Present on Admission: No VTE Mechan Device Prophylaxis: SCD's, Thigh High BECCA Hose VTE Pharm Prophylaxis ordered?: Yes
--- NOTE | 2018-12-04 12:42 | OP.PCM_ITS ---
Report of Operation Date of Procedure: 12/04/18 Pre-Operative Diagnosis: Left periprosthetic distal femur fracture Post-Operative Diagnosis: Left comminuted periprosthetic distal femur fracture Surgery/Procedure Performed:: Revision left total knee replacement entire femo ral and tibial component Description of Surgical Findings:: Severe comminution and evidence of implant loosening from the injury was noted intraoperatively. Leg lengths appear equal during surgery based on medial malleoli. Good patella tracking. catalyst manufacturing operator: Pablito Dhillon Type of Anesthesia:: General Anesthesiologist: Rebecca Fulton Special Medications: 3 g Ancef, 2 g TXA 1 minute lavage and wound prior to closure, 10 mg Decadron, joint cocktail (5 mg Duramorph, 30 mL of 0.5% Ropivicaine, 1000 units of epinephrine, 30 mg of Toradol), 2 additional grams Ancef 2-1/2 hours after incision. 1 g of vancomycin in cement mantle. 1 g of vancomycin powder and wound. Specimen's removed: 3 separate specimens were sent to microbiology Estimated Blood Loss (mL): 300 Fluids Replaced: 2 L crystalloid Description of Procedure: On the date of the procedure patient's left lower extremity was marked in the preoperative area. Patient was brought back to the operating room where there transferred to the table in the supine position. Anesthesia assumed control of the C-spine and airway remained to control throughout the remainder of the procedure. All bony prominences were identified and well-padded. After anesthesia was administered a tourniquet was placed in the left upper thigh. At this time based on the patient's size of a BMI of 41 and the instability of the fracture my care assistant had to help hold the leg is the leg was prepped. While the leg was being prepped surgeon scrubbed. Upon reentering the room left lower extremity was draped in a standard orthopedic fashion with the help of my tech well to people held the leg. Once this was appropriately draped the incision was marked out. Previous incision was used extending it proximally and distally 2 cm. Timeout was called at this time and everyone agreed upon the side, the site, the procedure be performed, patient's identity and antibiotics given. Esmarch bandage was used to exsanguinate the extremity. Based on the patient's size and instability of the leg to people had to hold the leg while the Esmarch was placed. Knee was flexed tourniquet was placed up to 250 mmHg. Incision was gutierrez en down through skin subtenons tissue fat down to fascia. Appropriate medial lateral flaps were raised. Once we identified the extensor mechanism a standard medial parapatellar arthrotomy was made was made proximal enough getting into the vastus medialis in order to get to the proximal portion of the fracture. Once we entered the wound were able to identify the fracture. They were fragments of bone that were associated from the implant. The entire lateral femoral condyle was dissociated from the implant and distal femur. There was several pieces of comminution. At this time the distal femur was debrided and placed on the back table all, need pieces were debrided and placed on the back table. A cleanup cut was made on the distal femur. Based on the fragments debrided we determine an estimate with the standard size body and 30 mm augment. The distal femur was exposed by my care assistant with retractors and using a lap sponge to elevate the distal femur. We then used flexible reamers in order to ream up to 15 mm where he had good chatter in the femur. At this time based on the previous tibial implant we trialed the femoral implants and noted that a 40 mm augment was better. This help us get the joint line down to where it was previously. Once this was done we removed the femoral component and exposed the tibia. Once the tibia was adequately exposed the tibia had a long stem with a offset. Patient had osteopenic bone. We used this thin saw first to separate the bone cement interface then a thicker sole in order to give us room to use the osteotomes. Once the entire baseplate/bone/cement interface was disrupted we attempted to back slap the implant however the cement was fixed distally. Based on the kink from the office that we knew we had to remove some of the cement prior to explanting the tibia. At this time using cortical windows we were able to debride some of the cement over the shoulder of the offset. We did this very carefully using a bur and osteotomes. We used fluid in order to decrease the amount of heat. Once the cement had adequately been debrided and we could visualize the shoulder through the windows we again attempted to back slap the tibia. This then did come out. It took 4 times of carefully debriding cement and attempting to back slap before we could get the implant out safely. We were able to get the implant out without additional significant bone loss or major fractures. However, this did take us additional time due to the size of the implants stems and the offset. We spent at least an additional 45 minutes on this portion of the case in order to avoid complications. Once this was removed we removed the remainder of the cement mantle distally using drills and osteotomes. At this point we then began to prep the tibia for implants. First we reamed the proximal tibia for a cone a size E cone was selected. Contrast was put into place and a perpendicular cut was made using the extra medullary guide on the proximal tibia. Once a perpendicular cut was made a medium tibial baseplate was selected. It was pinned in place in appropriate external rotation heel punch was made and the box was reamed. We then selected a 40 mm tibial stem and 10 mm augment. We placed the tibial trial and trialed the femur once more. With a 13 mm polyethylene leg lengths were equal and patella appeared to track well without appreciable impingement until about 110 degrees. At this time the trial components were removed. 6 L of normal saline were used to irrigate the wound under low pressure lavage. We started the lava ge the tourniquet was let down. After the lavage hemostasis was obtained. No significant vascular injuries were noted in the posterior knee. We then placed the tourniquet back up for cementing. We mixed 2 batches of cement separately. One batch was mixed with an additional gram of vancomycin and placed around the femoral components body as a additional nonbiodegradable antibiotic spacer as th is procedure has a high infection rate. The other active cement was mixed in a gun and used to pressurize the tibial canal after a cement restrictor was placed. Prior to repressurized and the canal cement the tibial cone had been put into place and was solidly fixed. Once the tibia canal was pressurized with cement we then cemented the millimeters augment on the backside of the tibia and cemented the tibia into place. Once the tibia cement was cured we directed our attention to the femur. Femoral canal was cleaned up and dried. Additional batch of cement was mixed and the femoral canal was pressurized and using the previous marking for external rotation the femur was cemented in the appropriate place. After the femoral cement cured we again trialed the appropriate tibial polyethylene and noted that a 13 mm polyethylene was appropriate. Final components were opened for the bushings and the polyethylene and assembled. The hinged component was assembled into place with a 3 degree bumper. It was let down and hemostasis was obtained. 2 g of TXA were used to lavage the wound for 1 minute followed by normal saline. A lateral drain was placed. Vancomycin was placed. The arthrotomy was closed #1 Vicryl. Skin was closed with 2-0 Vicryl and 3-0 nylon. Sterile dressing was placed. She was awakened by anesthesia and transferred to the PACU for recovery. Postoperative plan: Patient will wear a knee immobilizer for 2 weeks to protect the wound. At 2 weeks she will start range of motion and strengthening. We will do partial weightbearing for 6 weeks 50%. Patient can restart her Eliquis tomorrow for DVT prophylaxis and treatment. She will be placed on doxycycline for 1 week as we follow cultures. Implants: Femur: standard left distal femur for GMR S with appropriate bushings. 40 mm body, 13 mm stem with standard attached body. Tibia: Woodruff M2 tibia for hinged implant. 40 mm stem. 10 mm augment. 13 mm polyethylene. Size E Cone. Based on the complexity of this case and modifier 22 should be considered. Patient size added to the complexity of the case with a BMI of 41+. In addition the tibial stem took a significant amount of additional time adding roughly an hour to the case. This is typically a 3-hour case that took 4 hours, 33% longer. Grafts/Implants Used: Starr GMR S distal femoral replacement - Complications None - Admit VTE Documentation VTE Present on Admission: No VTE Mechan Device Prophylaxis: SCD's, Thigh High BECCA Hose VTE Pharm Prophylaxis ordered?: Yes
--- NOTE | 2018-12-04 12:53 | PCA ---
pt off floor
--- NOTE | 2018-12-04 13:09 | RAD_ITS ---
STUDY: X-RAY - LEFT KNEE REASON FOR EXAM: Female, 63 years old. Postop TECHNIQUE: 2 view(s) of the knee. COMPARISON: None. FINDINGS: Normal visualized distal femur. Normal visualized proximal tibia and fibula. Normal proximal tibiofibular articulation. Knee replacement is in radiographic alignment. Soft tissue swelling, gas and surgical drainage catheter compatible with recent surgery. Vascular calcifications are present. RAD/Knee 1 or 2 Views IMPRESSION: Radiographic alignment of left knee replacement with recent operative changes. Electronically Signed: Say Kimball MD at 18:07 EST , Service support ,
--- NOTE | 2018-12-04 13:53 | PCA ---
pt off floor
--- NOTE | 2018-12-04 14:34 | PN_ITS ---
<Demarcus Myrick - Last Filed: 12/04/18 14:29> Patient Problems: Active and Suspected Problems (Last Updated 04/29/18 @ 15:18 by Cee Mcnulty DO) Acute fall (Acute) Fracture of femur, distal, left, closed (Acute) Subjective: Pt resting comfortably in bed post op. She has no complaints. She is somewhat drowsy still. She is on 3lpm O2 via NC, no complaints of SOB or cough, and with clear lungs and good breathing effort. No pain. No numbness or tingling. No nausea or vomiting. No PO intake yet. Dubois is in place. - Physical Exam General: Alert, Oriented x3, Cooperative, - - drowsy HEENT: Atraumatic, PERRLA, EOMI, Normocephalic Neck: Supple, No JVD, Negative Carotid Bruits Lungs: Clear to auscultation, Normal air movement Cardiovascular: Regular rate, No murmurs Abdomen: Bowel Sounds Present, Soft, Non Tender Extremities: No edema, Capillary Refill Less than 3 Seconds Skin: No rashes, No breakdown Musculoskeletal: No Tenderness to Palpation of Joints or Extremities Neurological: Cranial nerves II-XII grossly intact Psych/Mental Status: Normal Affect, Appropriate Vital Signs Temp Pulse Resp BP Pulse Ox 98.0 F 111 H 16 112/74 94 12/04/18 14:12 12/04/18 14:12 12/04/18 14:12 12/04/18 14:12 12/04/18 14:12 Oxygen Flow Rate (L/min) 3 Oxygen Delivery Method Nasal Cannula Weight: 273 lb 5.971 oz Body Mass Index (BMI) 41.5 Intake and Output for Last 24 Hours 12/02/18 12/03/18 12/04/18 23:59 23:59 23:59 Intake Total 2213 / 2213 1000 / 1000 2710 / 2710 Output Total 3650 / 3650 3050 / 3050 2300 / 2300 Balance -1437 / -1437 -2049 / -0 410 / 410 Laboratory Tests Past 24 Hrs 12/04/18 12/04/18 12/04/18 05:16 05:16 05:16 WBC 10.2 RBC 3.92 L Hgb 11.6 L Hct 36.7 L MCV 93.6 MCH 29.6 MCHC 31.6 L RDW 14.9 H RDW Differential 48.9 H Plt Count 244 MPV 10.8 Immature Gran % (Auto) 0.500 Neut % (Auto) 68.5 Lymph % (Auto) 18.2 L [place] % (Auto) 6.6 Eos % (Auto) 5.7 H Baso % (Auto) 0.5 Absolute Neuts (auto) 7.0 Absolute Lymphs (auto) 1.85 Total Counted Not Reportable Sodium 142 Potassium 3.5 Chloride 100 Carbon Dioxide 37.0 H Anion Gap 5 BUN 17 Creatinine 0.80 Estim Creat Clear Calc 71.67 Est GFR (MDRD) Af Amer 93 Est GFR (MDRD) Non-Af 77 BUN/Creatinine Ratio 21.2 H Glucose 101 Hemoglobin A1c Calcium 8.4 L Phosphorus 3.5 Magnesium 2.0 Blood Type O POSITIVE Antibody Screen NEGATIVE 12/04/18 05:16 WBC RBC Hgb Hct MCV MCH MCHC RDW RDW Differential Plt Count MPV Immature Gran % (Auto) Neut % (Auto) Lymph % (Auto) [place] % (Auto) Eos % (Auto) Baso % (Auto) Absolute Neuts (auto) Absolute Lymphs (auto) Total Counted Sodium Potassium Chloride Carbon Dioxide Anion Gap BUN Creatinine Estim Creat Clear Calc Est GFR (MDRD) Af Amer Est GFR (MDRD) Non-Af BUN/Creatinine Ratio Glucose Hemoglobin A1c 5.4 Calcium Phosphorus Magnesium Blood Type Antibody Screen POC Glucose 12/03/18 18:55 POC Glucose 149 H Medical Necessity - Tobacco Use Smoking Status: Former smoker Assessment/Plan All Active Problems (Last Updated 04/29/18 @ 15:18 by Cee Mcnulty DO) Acute fall (Acute) Fracture of femur, distal, left, closed (Acute) Acute exacerbation of chronic obstructive pulmonary disease (COPD) (Resolved) Parainfluenza virus bronchopneumonia (Resolved) History of MRSA infection (Resolved) Non-healing wound of lower extremity (Acute) Allergic reaction due to correct medicinal substance properly administered (Resolved) Atrial fibrillation with RVR (Resolved) CAP (community acquired pneumonia) (Resolved) Cellulitis of lower leg (Resolved) Influenza B (Resolved) Laceration of head (Resolved) Metabolic alkalosis (Resolved) Pneumonia (Resolved) Syncope and collapse (Resolved) 1. Acute comminuted, displaced, closed fracture of the distal femoral diaphysis, proximal to the femoral prosthesis secondary to fall at home. Post op d#0. Dr. Jenkins following. Doing well. IS and Wean O2 as tolerated and as she becomes more alert. Clear diet ordered per ortho. Repeat CT brain with small persistent scalp hematoma. 2. Paroxysmal atrial fibrillation-Eliquis held as above. Last echo August 10, 2017 EF 45-50%. Currently rate is well controlled. Continue Lopressor and Cardizem. Plan to resume eliquis tomorrow if no bleeding. 3. Hypokalemia-resolved 4. COPD-currently stable. As needed aerosols. CXR neg at admission. 5. Other chronic medical issues include history of morbid obesity, obstructive sleep apnea, GERD, MRSA of the lower extremity wound, known alcoholic cirrhosis, anxiety, hypertension. DVT prophylaxis: Eliquis currently held for surgery - resume tomorrow if no bleeding. DC planning: PTOT postop, fall at home, may need placed. This patient was seen by Demarcus Myrick PA-C under the supervision of Doctor Marcelo. <Silviano Robertson F - Last Filed: 12/04/18 15:17> - Physical Exam Vital Signs Temp Pulse Resp BP Pulse Ox 98.0 F 111 H 16 112/74 94 12/04/18 14:12 12/04/18 14:12 12/04/18 14:12 12/04/18 14:12 12/04/18 14:12 Oxygen Flow Rate (L/min) 3 Oxygen Delivery Method Nasal Cannula Weight: 273 lb 5.971 oz Body Mass Index (BMI) 41.5 Intake and Output for Last 24 Hours 12/02/18 12/03/18 12/04/18 23:59 23:59 23:59 Intake Total 2213 / 2213 1000 / 1000 2710 / 2710 Output Total 3650 / 3650 3050 / 3050 2300 / 2300 Balance -1437 / -1437 -2050 / -2050 410 / 410 Laboratory Tests Past 24 Hrs 12/04/18 12/04/18 12/04/18 05:16 05:16 05:16 WBC 10.2 RBC 3.92 L Hgb 11.6 L Hct 36.7 L MCV 93.6 MCH 29.6 MCHC 31.6 L RDW 14.9 H RDW Differential 48.9 H Plt Count 244 MPV 10.8 Immature Gran % (Auto) 0.500 Neut % (Auto) 68.5 Lymph % (Auto) 18.2 L [place] % (Auto) 6.6 Eos % (Auto) 5.7 H Baso % (Auto) 0.5 Absolute Neuts (auto) 7.0 Absolute Lymphs (auto) 1.85 Total Counted Not Reportable Sodium 142 Potassium 3.5 Chloride 100 Carbon Dioxide 37.0 H Anion Gap 5 BUN 17 Creatinine 0.80 Estim Creat Clear Calc 71.67 Est GFR (MDRD) Af Amer 93 Est GFR (MDRD) Non-Af 77 BUN/Creatinine Ratio 21.2 H Glucose 101 Hemoglobin A1c Calcium 8.4 L Phosphorus 3.5 Magnesium 2.0 Blood Type O POSITIVE Antibody Screen NEGATIVE 12/04/18 05:16 WBC RBC Hgb Hct MCV MCH MCHC RDW RDW Differential Plt Count MPV Immature Gran % (Auto) Neut % (Auto) Lymph % (Auto) [place] % (Auto) Eos % (Auto) Baso % (Auto) Absolute Neuts (auto) Absolute Lymphs (auto) Total Counted Sodium Potassium Chloride Carbon Dioxide Anion Gap BUN Creatinine Estim Creat Clear Calc Est GFR (MDRD) Af Amer Est GFR (MDRD) Non-Af BUN/Creatinine Ratio Glucose Hemoglobin A1c 5.4 Calcium Phosphorus Magnesium Blood Type Antibody Screen POC Glucose 12/03/18 18:55 POC Glucose 149 H Code Visit Addendum: Dr. Robertson I personally examined the patient and reviewed the chart. I agree with the above. 63-year-old female with a history of A. fib, COPD, morbid obesity, LUIS presenting after falling to an acute comminuted displaced closed fracture of the distal femoral diaphysis. She underwent operative repair today. The plan will be to continue her Eliquis tomorrow and plan for either discharge home or discharge to a assisted facility depending on PT and OT needs. Inpatient E&M: 90811 Subs Hosp L2
[2018-12-04] MEDS: Gabapentin 600 MG Tablet PO (16:14)
[2018-12-04] MEDS: Metoprolol Tartrate 50 MG, Metoprolol Tartrate 25 MG 75 MG PO ×2 (16:14→21:19)
[2018-12-04] MEDS: dilTIAZem CD 240 MG Capsule PO (16:14)
[2018-12-04] MEDS: Furosemide 40 MG Tablet PO (16:14)
[2018-12-04 17:36] LABS: Bedside Glucose 237 mg/dL (70-110)
[2018-12-04] MEDS: Cefazolin 1 GM/50 ML BAG IV (18:21)
[2018-12-04] MEDS: 0.9% Normal Saline 1,000 ML 15 ML IV (18:21)
[2018-12-04] MEDS: Ketorolac 15 MG/ML Vial IV (18:24)
[2018-12-04] MEDS: Atorvastatin Calcium 20 MG Tablet PO (21:18)
[2018-12-04] MEDS: lamoTRIgine 100 MG Tablet PO (21:19)
[2018-12-04] MEDS: Famotidine 20 MG Tablet PO (21:20)
[2018-12-04] MEDS: Insulin Lispro 100 UNIT/ML INSULN.PEN SC (21:26)
[2018-12-04 22:11] LABS: Bedside Glucose 211 mg/dL (70-110)
[2018-12-04] MEDS: HYDROcodone Bitartrate/Apap 5/325 Tablet PO (23:42)
[2018-12-05] VITALS (16 sets, daily range): BP systolic 91–108; BP diastolic 49–72; PULSE 54–102; RESP 16–18; TEMP 36.4–37.2; O2SAT 94–97
[2018-12-05] MEDS: LORazepam 0.5 MG Tablet PO ×2 (00:51→21:17)
[2018-12-05] MEDS: Ketorolac 15 MG/ML Vial IV ×2 (03:12→13:36)
[2018-12-05] MEDS: Cefazolin 1 GM/50 ML BAG IV (03:12)
[2018-12-05] MEDS: HYDROcodone Bitartrate/Apap 5/325 Tablet PO ×3 (04:31→18:32)
--- NOTE | 2018-12-05 05:55 | EKG12_ITS ---
Test Reason : AM Blood Pressure : / mmHG Vent. Rate : 087 BPM Atrial Rate : 090 BPM P-R Int : 000 ms QRS Dur : 084 ms QT Int : 402 ms P-R-T Axes : 000 008 014 degrees QTc Int : 483 ms Atrial fibrillation Abnormal ECG Confirmed by LUCILA FERNANDEZ, NITESH ([id number]), associate entertainment editor ABI CRAIG ([id number] on 12/09/2018 8:36:28 AM Referred By: Confirmed By:NITESH GAYTAN MD
[2018-12-05 06:00] LABS: Hematocrit 28.8 % (37-47); Hemoglobin 9.1 g/dl (12.0-15.0); Mean Corp Hgb Conc 31.6 g/gl (32-36); Mean Corpuscular Hgb 29.4 pg (27.0-32.0); Mean Corpuscular Volume 93.2 fL (81-99); Mean Platelet Vol. 10.7 fl (6.2-12.0); Platelet Count 194 K/mm3 (150-450); RBC Distribution Width CV 14.7 % (11.6-14.6); Red Blood Count 3.09 M/mm3 (4.2-5.4); White Blood Count 12.8 K/mm3 (4.4-11.0)
[2018-12-05 06:04] LABS: Scan Indicated on CBC? Y/N NO
[2018-12-05 06:17] LABS: Anion Gap 9 (5-15); BUN 20 mg/dL (7-18); BUN/Creat Ratio 24.8 RATIO (10-20); Calcium,Total 8.1 mg/dL (8.5-10.1); Chloride 100 mmol/L (98-107); Creatinine, Serum 0.81 mg/dL (0.55-1.02); EST Glomerular Filtration Rate 76 mL/min (>60); Est Glom Filt Rate - Afr Amer 92 mL/min (>60); Estimated Creatinine Clearance 70.78 ml/min; Glucose 152 mg/dL (74-106); Potassium 3.9 mmol/L (3.5-5.1); Sodium Level 140 mmol/L (136-145)
[2018-12-05] MEDS: Insulin Lispro 100 UNIT/ML INSULN.PEN SC ×3 (06:37→21:09)
[2018-12-05 06:45] LABS: Bedside Glucose 153 mg/dL (70-110)
[2018-12-05] MEDS: Ipratropium/Albuterol Sulfate 3 ML AMPUL.NEB INHALATION ×4 (07:05→19:26)
[2018-12-05] MEDS: dilTIAZem CD 240 MG Capsule PO (08:22)
[2018-12-05] MEDS: Gabapentin 600 MG Tablet PO ×2 (08:22→16:57)
[2018-12-05] MEDS: Famotidine 20 MG Tablet PO ×2 (08:22→21:11)
[2018-12-05] MEDS: Polyethylene Glycol 3350 17 GM PACKET PO (08:22)
[2018-12-05] MEDS: Metoprolol Tartrate 50 MG, Metoprolol Tartrate 25 MG 75 MG PO (08:23)
[2018-12-05] MEDS: Furosemide 40 MG Tablet PO ×2 (08:24→18:33)
--- NOTE | 2018-12-05 11:07 | PCM.PROGNOTE ---
<Demarcus Myrick - Last Filed: 12/05/18 11:07> Patient Problems: Active and Suspected Problems (Last Updated 04/29/18 @ 15:18 by Cee Mcnulty DO) Acute fall (Acute) Fracture of femur, distal, left, closed (Acute) Subjective: Pt resting comfortably in bed. She has not been up yet. Heart rate was up somewhat last night, but no palp. She does have a cough, however she insists this is chronic and not new at all. It is nonproductive. She has moderate pain in the hip with intermittent parasthesias of the foot. - Physical Exam General: Alert, Oriented x3, Cooperative HEENT: Atraumatic, PERRLA, EOMI, Normocephalic Neck: Supple, No JVD, Negative Carotid Bruits Lungs: Clear to auscultation, Normal air movement Cardiovascular: Regular rate, No murmurs Abdomen: Bowel Sounds Present, Soft, Non Tender Extremities: No edema, Capillary Refill Less than 3 Seconds Skin: No rashes, No breakdown Musculoskeletal: No Tenderness to Palpation of Joints or Extremities Neurological: Cranial nerves II-XII grossly intact Psych/Mental Status: Normal Affect, Appropriate, Alert and oriented to time, place, person, mood and affect Vital Signs Temp Pulse Resp BP Pulse Ox 98.3 F 90 16 105/70 94 12/05/18 08:20 12/05/18 08:23 12/05/18 08:20 12/05/18 08:20 12/05/18 08:20 Oxygen Flow Rate (L/min) 2 Oxygen Delivery Method Nasal Cannula Weight: 273 lb 5.971 oz Body Mass Index (BMI) 41.5 Intake and Output for Last 24 Hours 12/03/18 12/04/18 12/05/18 23:59 23:59 23:59 Intake Total 1000 / 1000 3232 / 3232 145 / 145 Output Total 3050 / 3050 2995 / 2995 905 / 905 Balance -2049 / -0 237 / 237 -760 / -760 Microbiology Past 72 Hours 12/04/18 12:30 Gram Stain - Final Tissue - Other 12/04/18 12:30 Gram Stain - Final Tissue - Other 12/04/18 12:30 Gram Stain - Final Tissue - Other Laboratory Tests Past 24 Hrs 12/05/18 12/05/18 05:26 05:26 WBC 12.8 H RBC 3.09 L Hgb 9.1 L Hct 28.8 L MCV 93.2 MCH 29.4 MCHC 31.6 L RDW 14.7 H RDW Differential 48.0 H Plt Count 194 MPV 10.7 Sodium 140 Potassium 3.9 Chloride 100 Carbon Dioxide 31.0 Anion Gap 9 BUN 20 H Creatinine 0.81 Estim Creat Clear Calc 70.78 Est GFR (MDRD) Af Amer 92 Est GFR (MDRD) Non-Af 76 BUN/Creatinine Ratio 24.8 H Glucose 152 H Calcium 8.1 L POC Glucose 12/05/18 12/04/18 12/04/18 06:30 21:17 17:26 POC Glucose 153 H 211 H 237 H Medical Necessity - Tobacco Use Smoking Status: Former smoker Assessment/Plan All Active Problems (Last Updated 04/29/18 @ 15:18 by Cee Mcnulty DO) Acute fall (Acute) Fracture of femur, distal, left, closed (Acute) Acute exacerbation of chronic obstructive pulmonary disease (COPD) (Resolved) Parainfluenza virus bronchopneumonia (Resolved) History of MRSA infection (Resolved) Non-healing wound of lower extremity (Acute) Allergic reaction due to correct medicinal substance properly administered (Resolved) Atrial fibrillation with RVR (Resolved) CAP (community acquired pneumonia) (Resolved) Cellulitis of lower leg (Resolved) Influenza B (Resolved) Laceration of head (Resolved) Metabolic alkalosis (Resolved) Pneumonia (Resolved) Syncope and collapse (Resolved) 1. Acute comminuted, displaced, closed fracture of the distal femoral diaphysis, proximal to the femoral prosthesis secondary to fall at home. Post op d#1. Dr. Jenkins following. Doing well. Parsasthesias off and on in foot, however on testing PMS intact. Continue IS and Wean O2 as tolerated. diet advanced ordered per ortho. Repeat CT brain with small persistent scalp hematoma. 2. Paroxysmal atrial fibrillation-Eliquis held as above. Last echo August 10, 2017 EF 45-50%. Currently rate is well controlled. Continue Lopressor and Cardizem. Eliquis has been resumed. 3. Hypokalemia-resolved 4. COPD-currently stable. As needed aerosols. CXR neg at admission. Encouraged IS 10x/hr. 5. Other chronic medical issues include history of morbid obesity, obstructive sleep apnea, GERD, MRSA of the lower extremity wound, known alcoholic cirrhosis, anxiety, hypertension. 6. Hyperglycemia - likely 2/2 stress reaction, a1c 5.4. low dose SSI and accuchecks ordered. DVT prophylaxis: Eliquis restarted. DC planning: PTOT postop, fall at home, likely needs placed. This patient was seen by Demarcus Myrick PA-C under the supervision of Doctor Marcelo. <Silviano Robertson F - Last Filed: 12/05/18 12:53> - Physical Exam Vital Signs Temp Pulse Resp BP Pulse Ox 98.3 F 69 16 105/70 94 12/05/18 08:20 12/05/18 11:59 12/05/18 10:35 12/05/18 08:20 12/05/18 08:20 Oxygen Flow Rate (L/min) 2 Oxygen Delivery Method Nasal Cannula Weight: 273 lb 5.971 oz Body Mass Index (BMI) 41.5 Intake and Output for Last 24 Hours 12/03/18 12/04/18 12/05/18 23:59 23:59 23:59 Intake Total 1000 / 1000 3232 / 3232 745 / 745 Output Total 3050 / 3050 2995 / 2995 1855 / 1855 Balance -2050 / -2050 237 / 237 -1110 / -1110 Microbiology Past 72 Hours 12/04/18 12:30 Gram Stain - Final Tissue - Other 12/04/18 12:30 Gram Stain - Final Tissue - Other 12/04/18 12:30 Gram Stain - Final Tissue - Other Laboratory Tests Past 24 Hrs 12/05/18 12/05/18 05:26 05:26 WBC 12.8 H RBC 3.09 L Hgb 9.1 L Hct 28.8 L MCV 93.2 MCH 29.4 MCHC 31.6 L RDW 14.7 H RDW Differential 48.0 H Plt Count 194 MPV 10.7 Sodium 140 Potassium 3.9 Chloride 100 Carbon Dioxide 31.0 Anion Gap 9 BUN 20 H Creatinine 0.81 Estim Creat Clear Calc 70.78 Est GFR (MDRD) Af Amer 92 Est GFR (MDRD) Non-Af 76 BUN/Creatinine Ratio 24.8 H Glucose 152 H Calcium 8.1 L POC Glucose 12/05/18 12/05/18 12/04/18 12:22 06:30 21:17 POC Glucose 130 H 153 H 211 H 12/04/18 17:26 POC Glucose 237 H Code Visit Addendum: Dr. Robertson I personally examined the patient and reviewed the chart. I agree with the above. 63-year-old female presenting after a fall with an acute comminuted displaced closed fracture of the distal femoral diaphysis. She is postop day 1 and is doing well. She is having some pain but otherwise has tolerated surgery. We will plan to restart Eliquis tomorrow for her paroxysmal A. fib otherwise she continue all of her home medications. Have discussed with her that she may need placement to a senior living facility on discharge for rehab. Inpatient E&M: 19082 Subs Hosp L2
[2018-12-05 12:26] LABS: Bedside Glucose 130 mg/dL (70-110)
[2018-12-05] MEDS: 0.9% NaCl Peripheral Flush Adult/Peds IV ×2 (13:37→15:54)
--- NOTE | 2018-12-05 14:14 | PCM.PN.ORT ---
Patient Problems: Active and Suspected Problems (Last Updated 04/29/18 @ 15:18 by Cee Mcnulty DO) Acute fall (Acute) Fracture of femur, distal, left, closed (Acute) Subjective: Patient is doing well today. No acute events overnight. She does report some intermittent paresthesias in the left lower extremity especially in the foot. She also reports some tierney bone pain. No fevers overnight. Patient did have some difficulty with physical therapy and tolerating the partial weightbearing. Pain reports 6-9 out of 10 pain in the charting however she is resting comfortably in bed during our encounter today. Objective: Left knee radiographs postoperatively shows stable well fixed distal femoral replacement and tibial implant. - Physical Exam General: Alert, Oriented x3, Cooperative Extremities: - - Left lower extremity: Dressing is clean dry and intact Sensations intact to light touch saphenous, sural, superficial peroneal, deep peroneal, and tibial distributions Motors intact 5/5 EHL, DF, PF calves are soft and supple Vital Signs Temp Pulse Resp BP Pulse Ox 98.3 F 69 16 105/70 94 12/05/18 08:20 12/05/18 11:59 12/05/18 10:35 12/05/18 08:20 12/05/18 08:20 Oxygen Flow Rate (L/min) 2 Oxygen Delivery Method Nasal Cannula Weight: 273 lb 5.971 oz Body Mass Index (BMI) 41.5 Intake and Output for Last 24 Hours 12/03/18 12/04/18 12/05/18 23:59 23:59 23:59 Intake Total 1000 / 1000 3232 / 3232 745 / 745 Output Total 3050 / 3050 2995 / 2995 1855 / 1855 Balance -2050 / -2050 237 / 237 -1110 / -1110 Microbiology Past 72 Hours 12/04/18 12:30 Gram Stain - Final Tissue - Other Wound Culture - Preliminary No growth-Final to follow 12/04/18 12:30 Gram Stain - Final Tissue - Other Wound Culture - Preliminary No growth-Final to follow 12/04/18 12:30 Gram Stain - Final Tissue - Other Wound Culture - Preliminary No growth-Final to follow Laboratory Tests Past 24 Hrs 12/05/18 12/05/18 05:26 05:26 WBC 12.8 H RBC 3.09 L Hgb 9.1 L Hct 28.8 L MCV 93.2 MCH 29.4 MCHC 31.6 L RDW 14.7 H RDW Differential 48.0 H Plt Count 194 MPV 10.7 Sodium 140 Potassium 3.9 Chloride 100 Carbon Dioxide 31.0 Anion Gap 9 BUN 20 H Creatinine 0.81 Estim Creat Clear Calc 70.78 Est GFR (MDRD) Af Amer 92 Est GFR (MDRD) Non-Af 76 BUN/Creatinine Ratio 24.8 H Glucose 152 H Calcium 8.1 L POC Glucose 12/05/18 12/05/18 12/04/18 12:22 06:30 21:17 POC Glucose 130 H 153 H 211 H 12/04/18 17:26 POC Glucose 237 H Medical Necessity - Tobacco Use Smoking Status: Former smoker Assessment/Plan All Active Problems (Last Updated 04/29/18 @ 15:18 by Cee Mcnulty DO) Acute fall (Acute) Fracture of femur, distal, left, closed (Acute) Acute exacerbation of chronic obstructive pulmonary disease (COPD) (Resolved) Parainfluenza virus bronchopneumonia (Resolved) History of MRSA infection (Resolved) Non-healing wound of lower extremity (Acute) Allergic reaction due to correct medicinal substance properly administered (Resolved) Atrial fibrillation with RVR (Resolved) CAP (community acquired pneumonia) (Resolved) Cellulitis of lower leg (Resolved) Influenza B (Resolved) Laceration of head (Resolved) Metabolic alkalosis (Resolved) Pneumonia (Resolved) Syncope and collapse (Resolved) Postop day 1 revision left total knee replacement. 1. Therapy: Partial weightbearing 50% left lower extremity. Going to maintain the knee immobilizer at this time to help protect the integrity of the soft tissue envelope and minimize tension on the incision as patient heals. 2. Drain: Drain continues to decrease in drainage output. Plan is for discontinuation of the drain tomorrow morning if output remains minimal. 3. DVT prophylaxis: Patient allowed to restart Eliquis today. 4. Pain control: Continue current regimen patient allergic to morphine. Patient's reported pain. To be significantly more than what physical exam and vital signs would indicate. 5. Cultures are negative we will continue to follow, continue doxycycline for 1 week as we follow cultures. 6. Disposition: Based on patient's protected weightbearing status and overall health and upper extremity strength she will likely need detention versus rehabilitation upon discharge prior to being discharged home. [facility] Office:
[2018-12-05] MEDS: Doxycycline 100 MG CAPSULE PO ×2 (15:54→21:08)
[2018-12-05 17:15] LABS: Bedside Glucose 201 mg/dL (70-110)
[2018-12-05] MEDS: lamoTRIgine 100 MG Tablet PO (21:09)
[2018-12-05] MEDS: Atorvastatin Calcium 20 MG Tablet PO (21:09)
[2018-12-05] MEDS: APIXABAN 5 MG TABLET PO (21:09)
[2018-12-05 22:06] LABS: Bedside Glucose 193 mg/dL (70-110)
[2018-12-06] VITALS (14 sets, daily range): BP systolic 101–142; BP diastolic 59–71; PULSE 74–117; RESP 16–20; TEMP 36.6–37.1; O2SAT 94–96
--- NOTE | 2018-12-06 05:55 | EKG12_ITS ---
Test Reason : AM Blood Pressure : / mmHG Vent. Rate : 087 BPM Atrial Rate : 093 BPM P-R Int : 000 ms QRS Dur : 096 ms QT Int : 392 ms P-R-T Axes : 000 004 006 degrees QTc Int : 471 ms Atrial fibrillation Abnormal ECG Confirmed by LUCILA FERNANDEZ, NITESH ([id number]), business editor ABI CRAIG ([id number] on 12/09/2018 8:36:10 AM Referred By: LUNA Confirmed By:NITESH GAYTAN MD
[2018-12-06 06:20] LABS: Absolute Neutrophil Count 8.7 X10^3/uL (2.0-7.7); Basophil# 0.01 X10^3/uL; Basophil% 0.1 % (0-1); Eosinophil# 0.12 X10^3/uL; Eosinophils% 1.1 % (0-5); Hematocrit 27.5 % (37-47); Hemoglobin 8.4 g/dl (12.0-15.0); Lymphocyte % 9.4 % (19-41); Mean Corp Hgb Conc 30.5 g/gl (32-36); Mean Corpuscular Hgb 29.4 pg (27.0-32.0); Mean Corpuscular Volume 96.2 fL (81-99); Mean Platelet Vol. 10.9 fl (6.2-12.0); Monocyte% 6.6 % (0-10); Neutrophil # 8.72 X10^3/uL (2.7-7.7); Neutrophil % 82.4 % (47-70); Platelet Count 202 K/mm3 (150-450); RBC Distribution Width CV 14.9 % (11.6-14.6); RBC Distribution Width SD 49.5 fl (35.1-43.9); Red Blood Count 2.86 M/mm3 (4.2-5.4); White Blood Count 10.6 K/mm3 (4.4-11.0)
[2018-12-06 06:21] LABS: POSITIVE COUNT NO; POSITIVE DIFFERENTIAL NO; POSITIVE MORPHOLOGY NO
[2018-12-06] MEDS: HYDROcodone Bitartrate/Apap 5/325 Tablet PO ×4 (06:27→21:13)
[2018-12-06 06:31] LABS: Bedside Glucose 135 mg/dL (70-110)
--- NOTE | 2018-12-06 07:10 | PCM.PN.ORT ---
Patient Problems: Active and Suspected Problems (Last Updated 04/29/18 @ 15:18 by Cee Mcnulty DO) Acute fall (Acute) Fracture of femur, distal, left, closed (Acute) Subjective: The patient was sitting in bed upon examination. Patient denies any chest pain, shortness of breath, dizziness, nausea or vomiting, or calf pain. Pain is controlled on medications. No adverse overnight events. Patient only had 30 mL drainage on December 05, 2018. Drainage into the Hemovac has slowed down. Patient does continue to complain of increased pain into the left knee. Objective: Vital signs stable and afebrile. Patient is able to plantarflex and dorsiflex actively. Sensation is intact to light touch to saphenous, sural, superficial and deep peroneal, and tibial distribution. Dressing is clean dry and intact. Hemovac drain: Minimal output in canister. Negative Homans bilaterally, negative signs and symptoms of DVT. - Physical Exam General: Alert, Oriented x3, Cooperative, No apparent distress Vital Signs Temp Pulse Resp BP Pulse Ox 97.9 F 83 18 104/59 L 94 12/06/18 03:20 12/06/18 04:00 12/06/18 03:20 12/06/18 03:20 12/06/18 03:20 Oxygen Flow Rate (L/min) 2 Oxygen Delivery Method Nasal Cannula Weight: 124 kg Body Mass Index (BMI) 41.5 Intake and Output for Last 24 Hours 12/04/18 12/05/18 12/06/18 23:59 23:59 23:59 Intake Total 3232 / 3232 1145 / 1145 400 / 400 Output Total 2995 / 2995 3005 / 3005 1600 / 1600 Balance 237 / 237 -1860 / -1860 -1200 / -1200 Microbiology Past 72 Hours 12/04/18 12:30 Gram Stain - Final Tissue - Other Wound Culture - Preliminary No growth-Final to follow 12/04/18 12:30 Gram Stain - Final Tissue - Other Wound Culture - Preliminary No growth-Final to follow 12/04/18 12:30 Gram Stain - Final Tissue - Other Wound Culture - Preliminary No growth-Final to follow Laboratory Tests Past 24 Hrs 12/06/18 05:52 WBC 10.6 RBC 2.86 L Hgb 8.4 L Hct 27.5 L MCV 96.2 MCH 29.4 MCHC 30.5 L RDW 14.9 H RDW Differential 49.5 H Plt Count 202 MPV 10.9 Immature Gran % (Auto) 0.400 Neut % (Auto) 82.4 H Lymph % (Auto) 9.4 L [place] % (Auto) 6.6 Eos % (Auto) 1.1 Baso % (Auto) 0.1 Absolute Neuts (auto) 8.7 H Absolute Lymphs (auto) 1.00 Total Counted Not Reportable POC Glucose 12/06/18 12/05/18 12/05/18 06:19 21:07 16:55 POC Glucose 135 H 193 H 201 H 12/05/18 12:22 POC Glucose 130 H Medical Necessity - Tobacco Use Smoking Status: Former smoker Assessment/Plan All Active Problems (Last Updated 04/29/18 @ 15:18 by Cee Mcnulty DO) Acute fall (Acute) Fracture of femur, distal, left, closed (Acute) Acute exacerbation of chronic obstructive pulmonary disease (COPD) (Resolved) Parainfluenza virus bronchopneumonia (Resolved) History of MRSA infection (Resolved) Non-healing wound of lower extremity (Acute) Allergic reaction due to correct medicinal substance properly administered (Resolved) Atrial fibrillation with RVR (Resolved) CAP (community acquired pneumonia) (Resolved) Cellulitis of lower leg (Resolved) Influenza B (Resolved) Laceration of head (Resolved) Metabolic alkalosis (Resolved) Pneumonia (Resolved) Syncope and collapse (Resolved) 1. S/P revision left total knee arthroplasty POD #2 2. Continue Pain Medications: Continue per primary medicine. Patient currently on [place]. If pain is not adequately controlled would recommend oxycodone 1-2 tablets every 4 hours. 3. DVT Prophylaxis: Patient has been placed back on her Eliquis in which she takes secondary to atrial fibrillation. 4. PT/OT: Partial weightbearing 50% left lower extremity. Continue with knee immobilizer for 2 weeks postoperatively 5. H & H: 8.4/27.5 6. Encouraged Incentive Spirometry 7. Continue post operative medical management per medicine 8. Continue antibiotics: Currently on doxycycline 1 week postoperatively while following cultures 9. Disposition: Due to patient's protected weightbearing and limitations patient will require care home facility versus rehabilitation upon discharge. We will have case management assist with proper placement.
[2018-12-06] MEDS: Ipratropium/Albuterol Sulfate 3 ML AMPUL.NEB INHALATION ×4 (07:12→19:18)
[2018-12-06] MEDS: Gabapentin 600 MG Tablet PO ×2 (09:10→16:32)
[2018-12-06] MEDS: dilTIAZem CD 240 MG Capsule PO (09:11)
[2018-12-06] MEDS: Furosemide 40 MG Tablet PO ×2 (09:12→17:46)
[2018-12-06] MEDS: Doxycycline 100 MG CAPSULE PO ×2 (09:12→22:52)
[2018-12-06] MEDS: APIXABAN 5 MG TABLET PO ×2 (09:12→22:51)
[2018-12-06] MEDS: Polyethylene Glycol 3350 17 GM PACKET PO (09:13)
[2018-12-06] MEDS: Metoprolol Tartrate 50 MG, Metoprolol Tartrate 25 MG 75 MG PO ×2 (09:13→22:52)
[2018-12-06] MEDS: Famotidine 20 MG Tablet PO ×2 (09:13→22:56)
--- NOTE | 2018-12-06 09:57 | PCM.PN.HOSP ---
Patient Problems: Active and Suspected Problems (Last Updated 04/29/18 @ 15:18 by Cee Mcnulty DO) Acute fall (Acute) Fracture of femur, distal, left, closed (Acute) Subjective: Patient is a 63-year-old lady who slipped on ice injuring her left knee imaging studies obtained on admission demonstrated Comminuted and dorsally angulated fracture of the distal femur, involving the total knee arthroplasty. Admitted to regular nursing floor with consultation placed to orthopedic surgery patient underwent surgical intervention on 12/04/2018 12/06/2018: Patient seen complains of significant pain in the left knee. Significant drop in patient hemoglobin level down to 8.4 Objective: GENERAL: cooperative HEENT: Atraumatic; moist oral mucosa EYES; Anicteric, Normal Conjunctiva NECK; supple, normal thyroid, no distended JVD. RESPIRATORY: Diminished to auscultation bilaterally, CARDIOVASCULAR: Regular S1 S2, no audible murmurs GI: soft, non-tender, normoactive bowel sounds, : No Renal angle tenderness; EXTREMITIES: No edema, no clubbing, no cyanosis. MUSCULOSKELETAL: left Knee surgical dressing NEURO: Awake; no lateralizing signs. SKIN: No Rash PSYCH; Normal affect Vitals/I&O's: Vital Signs Temp Pulse Resp BP Pulse Ox 98.1 F 95 16 101/60 95 12/06/18 08:52 12/06/18 09:13 12/06/18 08:52 12/06/18 08:52 12/06/18 08:52 Oxygen Flow Rate (L/min) 2 Oxygen Delivery Method Nasal Cannula Weight: 124 kg Body Mass Index (BMI) 41.5 Intake and Output for Last 24 Hours 12/04/18 12/05/18 12/06/18 23:59 23:59 23:59 Intake Total 3232 / 3232 1145 / 1145 400 / 400 Output Total 2995 / 2995 3005 / 3005 1600 / 1600 Balance 237 / 237 -1860 / -1860 -1200 / -1200 Microbiology Past 72 Hours 12/04/18 12:30 Tissue - Other Gram Stain - Final 12/04/18 12:30 Tissue - Other Wound Culture - Preliminary No growth-Final to follow 12/04/18 12:30 Tissue - Other Gram Stain - Final 12/04/18 12:30 Tissue - Other Wound Culture - Preliminary No growth-Final to follow 12/04/18 12:30 Tissue - Other Gram Stain - Final 12/04/18 12:30 Tissue - Other Wound Culture - Preliminary No growth-Final to follow Laboratory Results 12/05/18 12:22: POC Glucose 130 H 12/05/18 16:55: POC Glucose 201 H 12/05/18 21:07: POC Glucose 193 H 12/06/18 05:52: WBC 10.6, RBC 2.86 L, Hgb 8.4 L, Hct 27.5 L, MCV 96.2, MCH 29.4, MCHC 30.5 L, RDW 14.9 H, RDW Differential 49.5 H, Plt Count 202, MPV 10.9, Immature Gran % (Auto) 0.400, Neut % (Auto) 82.4 H, Lymph % (Auto) 9.4 L, [place] % (Auto) 6.6, Eos % (Auto) 1.1, Baso % (Auto) 0.1, Absolute Neuts (auto) 8.7 H, Absolute Lymphs (auto) 1.00, Total Counted Not Reportable 12/06/18 06:19: POC Glucose 135 H Current Medications Acetaminophen (Tylenol) 650 mg PO Q6H PRN PRN PRN Reason: Mild Pain (scale 0-3)/T>100.7 Last Admin: 12/02/18 13:25 Dose: 650 mg Hydrocodone Bitart/Acetaminophen ([place] 5mg-325mg) 1 - 2 tablet PO Q4H PRN PRN PRN Reason: MODERATE PAIN (4-5/10) Last Admin: 12/06/18 06:27 Dose: 2 tablet Al Hydroxide/Mg Hydroxide (Mylanta Ii) 30 ml PO Q6H PRN PRN PRN Reason: Gastric Burning Albuterol/Ipratropium (Duoneb) 3 ml INHALATION Q4HWA.RT [facility] Last Admin: 12/06/18 07:12 Dose: 3 ml Apixaban (Eliquis) 5 mg PO BID [facility] Last Admin: 12/06/18 09:12 Dose: 5 mg Atorvastatin Calcium (Lipitor) 20 mg PO QHS [facility] Last Admin: 12/05/18 21:09 Dose: 20 mg Bisacodyl (Dulcolax) 10 mg RECTAL DAILY PRN PRN PRN Reason: Constipation Dextrose (D50w Syringe) 0 gm IV X1 PRN; Protocol PRN Reason: Hypoglycemia Diltiazem HCl (Cardizem Cd) 240 mg PO DAILY [facility] Last Admin: 12/06/18 09:11 Dose: 240 mg Docusate Sodium (Colace) 200 mg PO BID PRN PRN PRN Reason: Constipation Doxycycline Monohydrate (Doxycycline) 100 mg PO BID [facility] Stop: 12/12/18 15:01 Last Admin: 12/06/18 09:12 Dose: 100 mg Famotidine (Pepcid) 20 mg PO BID [facility] Last Admin: 12/06/18 09:13 Dose: 20 mg Furosemide (Lasix) 40 mg PO BIDLX [facility] Last Admin: 12/06/18 09:12 Dose: 40 mg Gabapentin (Neurontin) 600 mg PO BIDCM [facility] Last Admin: 12/06/18 09:10 Dose: 600 mg Glucagon () 1 mg IM .X1 PRN PRN Reason: Hypoglycemia Sodium Chloride () 1,000 mls @ 15 mls/hr IV .Q48H [facility] Last Admin: 12/04/18 18:21 Dose: 15 mls/hr Insulin Human Lispro (Humalog Kwikpen (Bkc)) 0 unit SC ACHS [facility]; Protocol Last Admin: 12/06/18 06:27 Dose: Not Given Lamotrigine (Lamictal) 100 mg PO QHS [facility] Last Admin: 12/05/18 21:09 Dose: 100 mg Lorazepam (Ativan) 0.5 mg PO BID PRN PRN Reason: ANXIETY Last Admin: 12/05/18 21:17 Dose: 0.5 mg Metoprolol Tartrate 50 mg/ (Metoprolol Tartrate 25 mg) 75 mg PO BID [facility] Last Admin: 12/06/18 09:13 Dose: 75 mg Nutritional Formula (Lactose Free) (Ensure Enlive) 120 ml PO 4X/DAY [facility] Last Admin: 12/06/18 09:17 Dose: 120 ml Ondansetron HCl (Zofran) 4 mg IV Q8H PRN PRN PRN Reason: Nausea Polyethylene Glycol (Miralax) 17 gm PO DAILY [facility] Last Admin: 12/06/18 09:13 Dose: 17 gm Promethazine HCl (Phenergan) 12.5 mg IM Q6H PRN PRN; Protocol PRN Reason: NAUSEA/VOMITING Sodium Chloride () 5 - 15 ml IV UD PRN PRN Reason: SALINE FLUSH Last Admin: 12/05/18 15:54 Dose: 10 ml Sodium Chloride (Emanuel Nasal [place]) 1 spray NASAL TID PRN PRN PRN Reason: NASAL DRYNESS Last Admin: 12/02/18 20:05 Dose: 1 spray Trazodone HCl (Desyrel) 50 mg PO QHS PRN PRN PRN Reason: insomnia Zolpidem Tartrate (Ambien (Generic)) 5 mg PO QHS PRN PRN PRN Reason: INSOMNIA Medical Necessity - Tobacco Use Smoking Status: Former smoker Assessment/Plan All Active Problems (Last Updated 04/29/18 @ 15:18 by Cee Mcnulty DO) Acute fall (Acute) Fracture of femur, distal, left, closed (Acute) Acute exacerbation of chronic obstructive pulmonary disease (COPD) (Resolved) Parainfluenza virus bronchopneumonia (Resolved) History of MRSA infection (Resolved) Non-healing wound of lower extremity (Acute) Allergic reaction due to correct medicinal substance properly administered (Resolved) Atrial fibrillation with RVR (Resolved) CAP (community acquired pneumonia) (Resolved) Cellulitis of lower leg (Resolved) Influenza B (Resolved) Laceration of head (Resolved) Metabolic alkalosis (Resolved) Pneumonia (Resolved) Syncope and collapse (Resolved) Patient is a 63-year-old lady who slipped on ice injuring her left knee imaging studies obtained on admission demonstrated Comminuted and dorsally angulated fracture of the distal femur, involving the total knee arthroplasty. Admitted to regular nursing floor with consultation placed to orthopedic surgery patient underwent surgical intervention on 12/04/2018 1. Acute comminuted, displaced, closed fracture of the distal femoral diaphysis, proximal to the femoral prosthesis secondary to fall. Patient underwent Revision left total knee replacement entire femoral and tibial component on 12/04/[address] Jenkins 2. Paroxysmal atrial fibrillation rate controlled on systemic anticoagulation with Eliquis resumed on 12/05/2017 3. Anemia secondary to acute blood loss anemia following surgery monitoring H&H with plans to transfuse if hemoglobin falls below 7 or patient becomes symptomatic 4. COPD without acute exacerbation did continue patient home regimen 5. Obstructive sleep apnea 6. Morbid obesity with BMI of 41.6 7. Hypertension-blood pressure controlled, home medications continued with dose adjustment as needed 8. Depression with anxiety 9. Chronic alcoholic cirrhosis stable 10. DVT prophylaxis on Eliquis Clinical Impression(s) from Imaging Studies Brain CT 12/01/18 19:14 IMPRESSION: 1. No evidence of acute intracranial or calvarial abnormality. 2. Left occipital subcutaneous hematoma. Electronically Signed: Félix Mcintyre at 19:57 EST Tel [phone], Service support , Cervical Spine CT 12/01/18 19:14 IMPRESSION: Degenerative changes of the cervical spine without acute fracture or subluxation. There is no marked interval change Electronically Signed: Félix Mcintyre, at 20:10 EST Tel [phone], Service support , Knee X-Ray 12/01/18 19:14 IMPRESSION: 1. Acute comminuted displaced fracture of distal femoral diaphysis. 2. Osteoporosis. 3. Status post total left knee arthroplasty. Electronically Signed: Leonarda Felix MD a Active Medications Acetaminophen (Tylenol) 650 mg PO Q6H PRN PRN PRN Reason: Mild Pain (scale 0-3)/T>100.7 Last Admin: 12/02/18 13:25 Dose: 650 mg Hydrocodone Bitart/Acetaminophen ([place] 5mg-325mg) 1 - 2 tablet PO Q4H PRN PRN PRN Reason: MODERATE PAIN (4-5/10) Last Admin: 12/06/18 06:27 Dose: 2 tablet Al Hydroxide/Mg Hydroxide (Mylanta Ii) 30 ml PO Q6H PRN PRN PRN Reason: Gastric Burning Albuterol/Ipratropium (Duoneb) 3 ml INHALATION Q4HWA.RT [facility] Last Admin: 12/06/18 07:12 Dose: 3 ml Apixaban (Eliquis) 5 mg PO BID [facility] Last Admin: 12/06/18 09:12 Dose: 5 mg Atorvastatin Calcium (Lipitor) 20 mg PO QHS [facility] Last Admin: 12/05/18 21:09 Dose: 20 mg Bisacodyl (Dulcolax) 10 mg RECTAL DAILY PRN PRN PRN Reason: Constipation Dextrose (D50w Syringe) 0 gm IV X1 PRN; Protocol PRN Reason: Hypoglycemia Diltiazem HCl (Cardizem Cd) 240 mg PO DAILY [facility] Last Admin: 12/06/18 09:11 Dose: 240 mg Docusate Sodium (Colace) 200 mg PO BID PRN PRN PRN Reason: Constipation Doxycycline Monohydrate (Doxycycline) 100 mg PO BID [facility] Stop: 12/12/18 15:01 Last Admin: 12/06/18 09:12 Dose: 100 mg Famotidine (Pepcid) 20 mg PO BID [facility] Last Admin: 12/06/18 09:13 Dose: 20 mg Furosemide (Lasix) 40 mg PO BIDLX [facility] Last Admin: 12/06/18 09:12 Dose: 40 mg Gabapentin (Neurontin) 600 mg PO BIDCM [facility] Last Admin: 12/06/18 09:10 Dose: 600 mg Glucagon () 1 mg IM .X1 PRN PRN Reason: Hypoglycemia Sodium Chloride () 1,000 mls @ 15 mls/hr IV .Q48H [facility] Last Admin: 12/04/18 18:21 Dose: 15 mls/hr Insulin Human Lispro (Humalog Kwikpen (Bkc)) 0 unit SC ACHS [facility]; Protocol Last Admin: 12/06/18 06:27 Dose: Not Given Lamotrigine (Lamictal) 100 mg PO QHS [facility] Last Admin: 12/05/18 21:09 Dose: 100 mg Lorazepam (Ativan) 0.5 mg PO BID PRN PRN Reason: ANXIETY Last Admin: 12/05/18 21:17 Dose: 0.5 mg Metoprolol Tartrate 50 mg/ (Metoprolol Tartrate 25 mg) 75 mg PO BID [facility] Last Admin: 12/06/18 09:13 Dose: 75 mg Nutritional Formula (Lactose Free) (Ensure Enlive) 120 ml PO 4X/DAY [facility] Last Admin: 12/06/18 09:17 Dose: 120 ml Ondansetron HCl (Zofran) 4 mg IV Q8H PRN PRN PRN Reason: Nausea Polyethylene Glycol (Miralax) 17 gm PO DAILY [facility] Last Admin: 12/06/18 09:13 Dose: 17 gm Promethazine HCl (Phenergan) 12.5 mg IM Q6H PRN PRN; Protocol PRN Reason: NAUSEA/VOMITING Sodium Chloride () 5 - 15 ml IV UD PRN PRN Reason: SALINE FLUSH Last Admin: 12/05/18 15:54 Dose: 10 ml Sodium Chloride (Emanuel Nasal [place]) 1 spray NASAL TID PRN PRN PRN Reason: NASAL DRYNESS Last Admin: 12/02/18 20:05 Dose: 1 spray Trazodone HCl (Desyrel) 50 mg PO QHS PRN PRN PRN Reason: insomnia Zolpidem Tartrate (Ambien (Generic)) 5 mg PO QHS PRN PRN PRN Reason: INSOMNIA t 20:50 EST , Service support , Abdomen/Pelvis CT 12/01/18 19:15 IMPRESSION: 1. Stranding of the soft tissues over the right buttock and hip suggesting soft tissue injury. There is no underlying fracture or dislocation. 2. No evidence of acute intra-abdominal or pelvic abnormality. There is no other major interval change when compared to the previous study. Electronically Signed: Félix Mcintyre DO at 20:06 EST Tel [phone], Service support , Femur X-Ray 12/01/18 19:47 IMPRESSION: Comminuted and dorsally angulated fracture of the distal femur, involving the total knee arthroplasty. Electronically Signed: Félix Mcintyre DO at 20:45 EST Tel [phone], Service support , Chest X-Ray 12/01/18 19:55 IMPRESSION: No acute cardiopulmonary disease. Electronically Signed: Félix Mcintyre DO at 20:43 EST Tel [phone], Service support , Brain CT 12/03/18 20:15 IMPRESSION: Small persistent hematoma in the scalp overlying left occipital bone without skull fracture or acute intracranial bleed Mild periventricular white matter ischemic changes Electronically Signed: Dakotah White MD at 22:22 EST , Service support , Knee X-Ray 12/04/18 13:09 IMPRESSION: Radiographic alignment of left knee replacement with recent operative changes. Electronically Signed: Say Kimball MD at 18:07 EST , Service support , Code Visit Inpatient E&M: 57146 Subs Hosp L3
--- NOTE | 2018-12-06 10:00 | PN_ITS ---
Patient Problems: Active and Suspected Problems (Last Updated 04/29/18 @ 15:18 by Cee Mcnulty DO) Acute fall (Acute) Fracture of femur, distal, left, closed (Acute) Subjective: Patient is a 63-year-old lady who slipped on ice injuring her left knee imaging studies obtained on admission demonstrated Comminuted and dorsally angulated fracture of the distal femur, involving the total knee arthroplasty. Admitted to regular nursing floor with consultation placed to orthopedic surgery patient underwent surgical intervention on 12/04/2018 12/06/2018: Patient seen complains of significant pain in the left knee. Significant drop in patient hemoglobin level down to 8.4 Objective: GENERAL: cooperative HEENT: Atraumatic; moist oral mucosa EYES; Anicteric, Normal Conjunctiva NECK; supple, normal thyroid, no distended JVD. RESPIRATORY: Diminished to auscultation bilaterally, CARDIOVASCULAR: Regular S1 S2, no audible murmurs GI: soft, non-tender, normoactive bowel sounds, : No Renal angle tenderness; EXTREMITIES: No edema, no clubbing, no cyanosis. MUSCULOSKELETAL: left Knee surgical dressing NEURO: Awake; no lateralizing signs. SKIN: No Rash PSYCH; Normal affect Vitals/I&O's: Vital Signs Temp Pulse Resp BP Pulse Ox 98.1 F 95 16 101/60 95 12/06/18 08:52 12/06/18 09:13 12/06/18 08:52 12/06/18 08:52 12/06/18 08:52 Oxygen Flow Rate (L/min) 2 Oxygen Delivery Method Nasal Cannula Weight: 124 kg Body Mass Index (BMI) 41.5 Intake and Output for Last 24 Hours 12/04/18 12/05/18 12/06/18 23:59 23:59 23:59 Intake Total 3232 / 3232 1145 / 1145 400 / 400 Output Total 2995 / 2995 3005 / 3005 1600 / 1600 Balance 237 / 237 -1860 / -1860 -1200 / -1200 Microbiology Past 72 Hours 12/04/18 12:30 Tissue - Other Gram Stain - Final 12/04/18 12:30 Tissue - Other Wound Culture - Preliminary No growth-Final to follow 12/04/18 12:30 Tissue - Other Gram Stain - Final 12/04/18 12:30 Tissue - Other Wound Culture - Preliminary No growth-Final to follow 12/04/18 12:30 Tissue - Other Gram Stain - Final 12/04/18 12:30 Tissue - Other Wound Culture - Preliminary No growth-Final to follow Laboratory Results 12/05/18 12:22: POC Glucose 130 H 12/05/18 16:55: POC Glucose 201 H 12/05/18 21:07: POC Glucose 193 H 12/06/18 05:52: WBC 10.6, RBC 2.86 L, Hgb 8.4 L, Hct 27.5 L, MCV 96.2, MCH 29.4, MCHC 30.5 L, RDW 14.9 H, RDW Differential 49.5 H, Plt Count 202, MPV 10.9, Immature Gran % (Auto) 0.400, Neut % (Auto) 82.4 H, Lymph % (Auto) 9.4 L, [place] % (Auto) 6.6, Eos % (Auto) 1.1, Baso % (Auto) 0.1, Absolute Neuts (auto) 8.7 H, Absolute Lymphs (auto) 1.00, Total Counted Not Reportable 12/06/18 06:19: POC Glucose 135 H Current Medications Acetaminophen (Tylenol) 650 mg PO Q6H PRN PRN PRN Reason: Mild Pain (scale 0-3)/T>100.7 Last Admin: 12/02/18 13:25 Dose: 650 mg Hydrocodone Bitart/Acetaminophen ([place] 5mg-325mg) 1 - 2 tablet PO Q4H PRN PRN PRN Reason: MODERATE PAIN (4-5/10) Last Admin: 12/06/18 06:27 Dose: 2 tablet Al Hydroxide/Mg Hydroxide (Mylanta Ii) 30 ml PO Q6H PRN PRN PRN Reason: Gastric Burning Albuterol/Ipratropium (Duoneb) 3 ml INHALATION Q4HWA.RT [facility] Last Admin: 12/06/18 07:12 Dose: 3 ml Apixaban (Eliquis) 5 mg PO BID [facility] Last Admin: 12/06/18 09:12 Dose: 5 mg Atorvastatin Calcium (Lipitor) 20 mg PO QHS [facility] Last Admin: 12/05/18 21:09 Dose: 20 mg Bisacodyl (Dulcolax) 10 mg RECTAL DAILY PRN PRN PRN Reason: Constipation Dextrose (D50w Syringe) 0 gm IV X1 PRN; Protocol PRN Reason: Hypoglycemia Diltiazem HCl (Cardizem Cd) 240 mg PO DAILY [facility] Last Admin: 12/06/18 09:11 Dose: 240 mg Docusate Sodium (Colace) 200 mg PO BID PRN PRN PRN Reason: Constipation Doxycycline Monohydrate (Doxycycline) 100 mg PO BID [facility] Stop: 12/12/18 15:01 Last Admin: 12/06/18 09:12 Dose: 100 mg Famotidine (Pepcid) 20 mg PO BID [facility] Last Admin: 12/06/18 09:13 Dose: 20 mg Furosemide (Lasix) 40 mg PO BIDLX [facility] Last Admin: 12/06/18 09:12 Dose: 40 mg Gabapentin (Neurontin) 600 mg PO BIDCM [facility] Last Admin: 12/06/18 09:10 Dose: 600 mg Glucagon () 1 mg IM .X1 PRN PRN Reason: Hypoglycemia Sodium Chloride () 1,000 mls @ 15 mls/hr IV .Q48H [facility] Last Admin: 12/04/18 18:21 Dose: 15 mls/hr Insulin Human Lispro (Humalog Kwikpen (Bkc)) 0 unit SC ACHS [facility]; Protocol Last Admin: 12/06/18 06:27 Dose: Not Given Lamotrigine (Lamictal) 100 mg PO QHS [facility] Last Admin: 12/05/18 21:09 Dose: 100 mg Lorazepam (Ativan) 0.5 mg PO BID PRN PRN Reason: ANXIETY Last Admin: 12/05/18 21:17 Dose: 0.5 mg Metoprolol Tartrate 50 mg/ (Metoprolol Tartrate 25 mg) 75 mg PO BID [facility] Last Admin: 12/06/18 09:13 Dose: 75 mg Nutritional Formula (Lactose Free) (Ensure Enlive) 120 ml PO 4X/DAY [facility] Last Admin: 12/06/18 09:17 Dose: 120 ml Ondansetron HCl (Zofran) 4 mg IV Q8H PRN PRN PRN Reason: Nausea Polyethylene Glycol (Miralax) 17 gm PO DAILY [facility] Last Admin: 12/06/18 09:13 Dose: 17 gm Promethazine HCl (Phenergan) 12.5 mg IM Q6H PRN PRN; Protocol PRN Reason: NAUSEA/VOMITING Sodium Chloride () 5 - 15 ml IV UD PRN PRN Reason: SALINE FLUSH Last Admin: 12/05/18 15:54 Dose: 10 ml Sodium Chloride ([place] Nasal [place]) 1 spray NASAL TID PRN PRN PRN Reason: NASAL DRYNESS Last Admin: 12/02/18 20:05 Dose: 1 spray Trazodone HCl (Desyrel) 50 mg PO QHS PRN PRN PRN Reason: insomnia Zolpidem Tartrate (Ambien (Generic)) 5 mg PO QHS PRN PRN PRN Reason: INSOMNIA Medical Necessity - Tobacco Use Smoking Status: Former smoker Assessment/Plan All Active Problems (Last Updated 04/29/18 @ 15:18 by Cee Mcnulty DO) Acute fall (Acute) Fracture of femur, distal, left, closed (Acute) Acute exacerbation of chronic obstructive pulmonary disease (COPD) (Resolved) Parainfluenza virus bronchopneumonia (Resolved) History of MRSA infection (Resolved) Non-healing wound of lower extremity (Acute) Allergic reaction due to correct medicinal substance properly administered (Resolved) Atrial fibrillation with RVR (Resolved) CAP (community acquired pneumonia) (Resolved) Cellulitis of lower leg (Resolved) Influenza B (Resolved) Laceration of head (Resolved) Metabolic alkalosis (Resolved) Pneumonia (Resolved) Syncope and collapse (Resolved) Patient is a 63-year-old lady who slipped on ice injuring her left knee imaging studies obtained on admission demonstrated Comminuted and dorsally angulated fracture of the distal femur, involving the total knee arthroplasty. Admitted to regular nursing floor with consultation placed to orthopedic surgery patient underwent surgical intervention on 12/04/2018 1. Acute comminuted, displaced, closed fracture of the distal femoral diaphysis, proximal to the femoral prosthesis secondary to fall. Patient underwent Revision left total knee replacement entire femoral and tibial component on 12/04/[address] Jenkins 2. Paroxysmal atrial fibrillation rate controlled on systemic anticoagulation with Eliquis resumed on 12/05/2017 3. Anemia secondary to acute blood loss anemia following surgery monitoring H&H with plans to transfuse if hemoglobin falls below 7 or patient becomes symptomatic 4. COPD without acute exacerbation did continue patient home regimen 5. Obstructive sleep apnea 6. Morbid obesity with BMI of 41.6 7. Hypertension-blood pressure controlled, home medications continued with dose adjustment as needed 8. Depression with anxiety 9. Chronic alcoholic cirrhosis stable 10. DVT prophylaxis on Eliquis Clinical Impression(s) from Imaging Studies Brain CT 12/01/18 19:14 IMPRESSION: 1. No evidence of acute intracranial or calvarial abnormality. 2. Left occipital subcutaneous hematoma. Electronically Signed: Félix Mcintyre at 19:57 EST Tel [phone], Service support , Cervical Spine CT 12/01/18 19:14 IMPRESSION: Degenerative changes of the cervical spine without acute fracture or subluxation. There is no marked interval change Electronically Signed: Félix Mcintyre, at 20:10 EST Tel [phone], Service support , Knee X-Ray 12/01/18 19:14 IMPRESSION: 1. Acute comminuted displaced fracture of distal femoral diaphysis. 2. Osteoporosis. 3. Status post total left knee arthroplasty. Electronically Signed: Leonarda Felix MD a Active Medications Acetaminophen (Tylenol) 650 mg PO Q6H PRN PRN PRN Reason: Mild Pain (scale 0-3)/T>100.7 Last Admin: 12/02/18 13:25 Dose: 650 mg Hydrocodone Bitart/Acetaminophen ([place] 5mg-325mg) 1 - 2 tablet PO Q4H PRN PRN PRN Reason: MODERATE PAIN (4-5/10) Last Admin: 12/06/18 06:27 Dose: 2 tablet Al Hydroxide/Mg Hydroxide (Mylanta Ii) 30 ml PO Q6H PRN PRN PRN Reason: Gastric Burning Albuterol/Ipratropium (Duoneb) 3 ml INHALATION Q4HWA.RT [facility] Last Admin: 12/06/18 07:12 Dose: 3 ml Apixaban (Eliquis) 5 mg PO BID [facility] Last Admin: 12/06/18 09:12 Dose: 5 mg Atorvastatin Calcium (Lipitor) 20 mg PO QHS [facility] Last Admin: 12/05/18 21:09 Dose: 20 mg Bisacodyl (Dulcolax) 10 mg RECTAL DAILY PRN PRN PRN Reason: Constipation Dextrose (D50w Syringe) 0 gm IV X1 PRN; Protocol PRN Reason: Hypoglycemia Diltiazem HCl (Cardizem Cd) 240 mg PO DAILY [facility] Last Admin: 12/06/18 09:11 Dose: 240 mg Docusate Sodium (Colace) 200 mg PO BID PRN PRN PRN Reason: Constipation Doxycycline Monohydrate (Doxycycline) 100 mg PO BID [facility] Stop: 12/12/18 15:01 Last Admin: 12/06/18 09:12 Dose: 100 mg Famotidine (Pepcid) 20 mg PO BID [facility] Last Admin: 12/06/18 09:13 Dose: 20 mg Furosemide (Lasix) 40 mg PO BIDLX [facility] Last Admin: 12/06/18 09:12 Dose: 40 mg Gabapentin (Neurontin) 600 mg PO BIDCM [facility] Last Admin: 12/06/18 09:10 Dose: 600 mg Glucagon () 1 mg IM .X1 PRN PRN Reason: Hypoglycemia Sodium Chloride () 1,000 mls @ 15 mls/hr IV .Q48H [facility] Last Admin: 12/04/18 18:21 Dose: 15 mls/hr Insulin Human Lispro (Humalog Kwikpen (Bkc)) 0 unit SC ACHS [facility]; Protocol Last Admin: 12/06/18 06:27 Dose: Not Given Lamotrigine (Lamictal) 100 mg PO QHS [facility] Last Admin: 12/05/18 21:09 Dose: 100 mg Lorazepam (Ativan) 0.5 mg PO BID PRN PRN Reason: ANXIETY Last Admin: 12/05/18 21:17 Dose: 0.5 mg Metoprolol Tartrate 50 mg/ (Metoprolol Tartrate 25 mg) 75 mg PO BID [facility] Last Admin: 12/06/18 09:13 Dose: 75 mg Nutritional Formula (Lactose Free) (Ensure Enlive) 120 ml PO 4X/DAY [facility] Last Admin: 12/06/18 09:17 Dose: 120 ml Ondansetron HCl (Zofran) 4 mg IV Q8H PRN PRN PRN Reason: Nausea Polyethylene Glycol (Miralax) 17 gm PO DAILY [facility] Last Admin: 12/06/18 09:13 Dose: 17 gm Promethazine HCl (Phenergan) 12.5 mg IM Q6H PRN PRN; Protocol PRN Reason: NAUSEA/VOMITING Sodium Chloride () 5 - 15 ml IV UD PRN PRN Reason: SALINE FLUSH Last Admin: 12/05/18 15:54 Dose: 10 ml Sodium Chloride ([place] Nasal [place]) 1 spray NASAL TID PRN PRN PRN Reason: NASAL DRYNESS Last Admin: 12/02/18 20:05 Dose: 1 spray Trazodone HCl (Desyrel) 50 mg PO QHS PRN PRN PRN Reason: insomnia Zolpidem Tartrate (Ambien (Generic)) 5 mg PO QHS PRN PRN PRN Reason: INSOMNIA t 20:50 EST , Service support , Abdomen/Pelvis CT 12/01/18 19:15 IMPRESSION: 1. Stranding of the soft tissues over the right buttock and hip suggesting soft tissue injury. There is no underlying fracture or dislocation. 2. No evidence of acute intra-abdominal or pelvic abnormality. There is no other major interval change when compared to the previous study. Electronically Signed: Félix Mcintyre DO at 20:06 EST Tel [phone], Service support , Femur X-Ray 12/01/18 19:47 IMPRESSION: Comminuted and dorsally angulated fracture of the distal femur, involving the total knee arthroplasty. Electronically Signed: Félix Mcintyre DO at 20:45 EST Tel [phone], Service support , Chest X-Ray 12/01/18 19:55 IMPRESSION: No acute cardiopulmonary disease. Electronically Signed: Félix Mcintyre DO at 20:43 EST Tel [phone], Service support , Brain CT 12/03/18 20:15 IMPRESSION: Small persistent hematoma in the scalp overlying left occipital bone without skull fracture or acute intracranial bleed Mild periventricular white matter ischemic changes Electronically Signed: Dakotah White MD at 22:22 EST , Service support , Knee X-Ray 12/04/18 13:09 IMPRESSION: Radiographic alignment of left knee replacement with recent operative changes. Electronically Signed: Say Kimball MD at 18:07 EST , Service support , Code Visit Inpatient E&M: 85992 Subs Hosp L3
[2018-12-06 11:15] LABS: Bedside Glucose 146 mg/dL (70-110)
[2018-12-06 11:36] LABS: Hemoglobin A1c 5.3 % (4.2-6.3)
--- NOTE | 2018-12-06 12:08 | CASEMGMT ---
Social Work Note STEFANIE met with pt to confirm discharge plans. Pt states she would like to go to [facility]. SW explained pt will need qualifying diagnosis and that pt will need to be able to complete three hours of therapy a day. Pt states that she has been to [facility] before and liked the people there. SW explained that this worker will have to check on bed availability and pt will need pre-cert from insurance. SW provided pt with list of in network facilities in the area in the event [facility] is unable to accept pt or pt's insurance denies [facility]. STEFANIE encouraged pt to have 2-3 different choices for SNF. Pt states understanding. STEFANIE placed a call to Tiffanie with [facility]. Per Tiffanie she will submit referral to [facility]. Plan: [facility] pending pre-cert Ladonna ESTRELLA, NUTRITIONALIST
[2018-12-06] MEDS: Insulin Lispro 100 UNIT/ML INSULN.PEN SC (16:32)
[2018-12-06] MEDS: LORazepam 0.5 MG Tablet PO ×2 (16:38→22:51)
[2018-12-06 17:01] LABS: Bedside Glucose 161 mg/dL (70-110)
[2018-12-06] MEDS: Atorvastatin Calcium 20 MG Tablet PO (22:53)
[2018-12-06] MEDS: lamoTRIgine 100 MG Tablet PO (22:53)
[2018-12-06 23:01] LABS: Bedside Glucose 136 mg/dL (70-110)
[2018-12-07] VITALS (10 sets, daily range): BP systolic 98–131; BP diastolic 64–76; PULSE 61–87; RESP 16–20; TEMP 36.6–37.1; O2SAT 93–97
[2018-12-07 06:51] LABS: Bedside Glucose 119 mg/dL (70-110)
--- NOTE | 2018-12-07 07:04 | PN.ORTHO_ITS ---
Patient Problems: Active and Suspected Problems (Last Updated 04/29/18 @ 15:18 by Cee Mcnulty DO) Acute fall (Acute) Fracture of femur, distal, left, closed (Acute) Subjective: The patient was sitting in bed upon examination. Patient denies any chest pain, shortness of breath, dizziness, lightheadedness, nausea or vomiting, or calf pain. Pain is controlled on medications. Patient appears to be in better pain control this morning. No adverse overnight events. Case management is involved and currently waiting on pre-CERT for discharge to rehab unit.. Objective: Vital signs stable and afebrile. Patient is able to plantarflex and dorsiflex actively. Sensation is intact to light touch to saphenous, sural, superficial and deep peroneal, and tibial distribution. Dressing is clean dry and intact. Knee immobilizer in place. Negative Homans bilaterally, negative signs and symptoms of DVT. - Physical Exam Vital Signs Temp Pulse Resp BP Pulse Ox 98.4 F 81 16 98/64 96 12/07/18 02:00 12/07/18 04:13 12/07/18 02:00 12/07/18 02:00 12/07/18 02:00 Oxygen Flow Rate (L/min) 2 Oxygen Delivery Method Room Air Weight: 124 kg Body Mass Index (BMI) 41.5 Intake and Output for Last 24 Hours 12/05/18 12/06/18 12/07/18 23:59 23:59 23:59 Intake Total 1145 / 1145 1020 / 1020 Output Total 3005 / 3005 1600 / 1600 Balance -1860 / -1860 -580 / -580 Microbiology Past 72 Hours 12/04/18 12:30 Gram Stain - Final Tissue - Other Wound Culture - Preliminary No growth-Final to follow Anaerobic Culture - Preliminary No growth in 48 hours. 12/04/18 12:30 Gram Stain - Final Tissue - Other Wound Culture - Preliminary No growth-Final to follow Anaerobic Culture - Preliminary No growth in 48 hours. 12/04/18 12:30 Gram Stain - Final Tissue - Other Wound Culture - Preliminary No growth-Final to follow Anaerobic Culture - Preliminary No growth in 48 hours. Laboratory Tests Past 24 Hrs 12/06/18 12/07/18 12/07/18 05:52 06:16 06:16 WBC Pending RBC Pending Hgb Pending Hct Pending MCV Pending MCH Pending MCHC Pending RDW Pending RDW Differential Pending Plt Count Pending Sodium Pending Potassium Pending Chloride Pending Carbon Dioxide Pending Anion Gap Pending BUN Pending Creatinine Pending Est GFR (MDRD) Af Amer Pending Est GFR (MDRD) Non-Af Pending BUN/Creatinine Ratio Pending Glucose Pending Hemoglobin A1c 5.3 Calcium Pending Magnesium Pending POC Glucose 12/07/18 12/06/18 12/06/18 06:48 22:49 16:29 POC Glucose 119 H 136 H 161 H 12/06/18 11:07 POC Glucose 146 H Medical Necessity - Tobacco Use Smoking Status: Former smoker Assessment/Plan All Active Problems (Last Updated 04/29/18 @ 15:18 by Cee Mcnulty DO) Acute fall (Acute) Fracture of femur, distal, left, closed (Acute) Acute exacerbation of chronic obstructive pulmonary disease (COPD) (Resolved) Parainfluenza virus bronchopneumonia (Resolved) History of MRSA infection (Resolved) Non-healing wound of lower extremity (Acute) Allergic reaction due to correct medicinal substance properly administered (Resolved) Atrial fibrillation with RVR (Resolved) CAP (community acquired pneumonia) (Resolved) Cellulitis of lower leg (Resolved) Influenza B (Resolved) Laceration of head (Resolved) Metabolic alkalosis (Resolved) Pneumonia (Resolved) Syncope and collapse (Resolved) 1. S/P revision left total knee arthroplasty POD #3 2. Continue Pain Medications: Continue per primary medicine. Patient currently on [place]. If pain is not adequately controlled would recommend oxycodone 1-2 tablets every 4 hours. 3. DVT Prophylaxis: Patient has been placed back on her Eliquis in which she takes secondary to atrial fibrillation. 4. PT/OT: Partial weightbearing 50% left lower extremity. Continue with knee immobilizer for 2 weeks postoperatively 5. H & H: Currently pending, asymptomatic. Patient does have anemia secondary to acute blood loss following surgery. Primary medicine will continue to monitor and transfuse if hemoglobin falls below 7 and patient becomes symptomatic. 6. Encouraged Incentive Spirometry 7. Continue post operative medical management per medicine 8. Continue antibiotics: Currently on doxycycline 1 week postoperatively while following cultures 9. Disposition: Due to patient's protected weightbearing and limitations patient will require retirement facility versus rehabilitation upon discharge. We will have case management assist with proper placement. Currently waiting on pre-CERT for discharge to rehab unit. Patient will need to schedule II week follow-up with [facility]. Continue with the knee immobilizer and partial weightbearing 50% left lower extremity 6 weeks postoperatively. At 2-week visit we will begin range of motion and strengthening of the left lower extremity. Continue with Eliquis for DVT prophylaxis.
[2018-12-07 07:05] LABS: Hematocrit 30.2 % (37-47); Hemoglobin 9.2 g/dl (12.0-15.0); Mean Corp Hgb Conc 30.5 g/gl (32-36); Mean Corpuscular Hgb 29.6 pg (27.0-32.0); Mean Corpuscular Volume 97.1 fL (81-99); Mean Platelet Vol. 11.3 fl (6.2-12.0); Platelet Count 252 K/mm3 (150-450); RBC Distribution Width CV 15.3 % (11.6-14.6); RBC Distribution Width SD 51.6 fl (35.1-43.9); Red Blood Count 3.11 M/mm3 (4.2-5.4); White Blood Count 10.1 K/mm3 (4.4-11.0)
[2018-12-07 07:08] LABS: Scan Indicated on CBC? Y/N NO
[2018-12-07 07:23] LABS: Anion Gap 9 (5-15); BUN 29 mg/dL (7-18); BUN/Creat Ratio 38.6 RATIO (10-20); Calcium,Total 8.6 mg/dL (8.5-10.1); Chloride 101 mmol/L (98-107); Creatinine, Serum 0.75 mg/dL (0.55-1.02); EST Glomerular Filtration Rate 83 mL/min (>60); Est Glom Filt Rate - Afr Amer 100 mL/min (>60); Estimated Creatinine Clearance 76.44 ml/min; Glucose 105 mg/dL (74-106); Magnesium 2.1 mg/dL (1.6-2.6); Potassium 3.6 mmol/L (3.5-5.1); Sodium Level 143 mmol/L (136-145)
[2018-12-07] MEDS: Ipratropium/Albuterol Sulfate 3 ML AMPUL.NEB INHALATION ×2 (07:24→14:46)
[2018-12-07] MEDS: Gabapentin 600 MG Tablet PO ×2 (08:26→16:48)
[2018-12-07] MEDS: HYDROcodone Bitartrate/Apap 5/325 Tablet PO ×2 (08:53→14:10)
[2018-12-07] MEDS: dilTIAZem CD 240 MG Capsule PO (08:54)
[2018-12-07] MEDS: Doxycycline 100 MG CAPSULE PO (08:54)
[2018-12-07] MEDS: Metoprolol Tartrate 50 MG, Metoprolol Tartrate 25 MG 75 MG PO (08:55)
[2018-12-07] MEDS: Furosemide 40 MG Tablet PO ×2 (08:55→16:48)
[2018-12-07] MEDS: Polyethylene Glycol 3350 17 GM PACKET PO (08:55)
[2018-12-07] MEDS: APIXABAN 5 MG TABLET PO (08:55)
[2018-12-07] MEDS: Famotidine 20 MG Tablet PO (08:56)
--- NOTE | 2018-12-07 09:51 | PCM.PN.HOSP ---
Patient Problems: Active and Suspected Problems (Last Updated 04/29/18 @ 15:18 by Cee Mcnulty DO) Acute fall (Acute) Fracture of femur, distal, left, closed (Acute) Subjective: Seen complains of significant pain if needed. Added Toradol 50 mg x1. Plan is for patient to be transferred to the inpatient rehab unit pending insurance approval Objective: GENERAL: cooperative HEENT: Atraumatic; moist oral mucosa EYES; Anicteric, Normal Conjunctiva NECK; supple, normal thyroid, no distended JVD. RESPIRATORY: Diminished to auscultation bilaterally, CARDIOVASCULAR: Regular S1 S2, no audible murmurs GI: soft, non-tender, normoactive bowel sounds, : No Renal angle tenderness; EXTREMITIES: No edema, no clubbing, no cyanosis. MUSCULOSKELETAL: left Knee surgical dressing NEURO: Awake; no lateralizing signs. SKIN: No Rash PSYCH; Normal affect Vitals/I&O's: Vital Signs Temp Pulse Resp BP Pulse Ox 97.8 F 66 18 131/72 H 93 12/07/18 08:30 12/07/18 08:55 12/07/18 08:30 12/07/18 08:30 12/07/18 08:30 Oxygen Flow Rate (L/min) 2 Oxygen Delivery Method Room Air Weight: 124 kg Body Mass Index (BMI) 41.5 Intake and Output for Last 24 Hours 12/05/18 12/06/18 12/07/18 23:59 23:59 23:59 Intake Total 1145 / 1145 1020 / 1020 Output Total 3005 / 3005 1600 / 1600 Balance -1860 / -1860 -580 / -580 Microbiology Past 72 Hours 12/04/18 12:30 Tissue - Other Gram Stain - Final 12/04/18 12:30 Tissue - Other Wound Culture - Final No growth aerobically. 12/04/18 12:30 Tissue - Other Anaerobic Culture - Preliminary No growth in 48 hours. 12/04/18 12:30 Tissue - Other Gram Stain - Final 12/04/18 12:30 Tissue - Other Wound Culture - Final No growth aerobically. 12/04/18 12:30 Tissue - Other Anaerobic Culture - Preliminary No growth in 48 hours. 12/04/18 12:30 Tissue - Other Gram Stain - Final 12/04/18 12:30 Tissue - Other Wound Culture - Final No growth aerobically. 12/04/18 12:30 Tissue - Other Anaerobic Culture - Preliminary No growth in 48 hours. Laboratory Results 12/06/18 05:52: Hemoglobin A1c 5.3 12/06/18 11:07: POC Glucose 146 H 12/06/18 16:29: POC Glucose 161 H 12/06/18 22:49: POC Glucose 136 H 12/07/18 06:16: WBC 10.1, RBC 3.11 L, Hgb 9.2 L, Hct 30.2 L, MCV 97.1, MCH 29.6, MCHC 30.5 L, RDW 15.3 H, RDW Differential 51.6 H, Plt Count 252, MPV 11.3 12/07/18 06:16: Sodium 143, Potassium 3.6, Chloride 101, Carbon Dioxide 33.0 H, Anion Gap 9, BUN 29 H, Creatinine 0.75, Estim Creat Clear Calc 76.44, Est GFR (MDRD) Af Amer 100, Est GFR (MDRD) Non-Af 83, BUN/Creatinine Ratio 38.6 H, Glucose 105, Calcium 8.6, Magnesium 2.1 12/07/18 06:48: POC Glucose 119 H Current Medications Acetaminophen (Tylenol) 650 mg PO Q6H PRN PRN PRN Reason: Mild Pain (scale 0-3)/T>100.7 Last Admin: 12/02/18 13:25 Dose: 650 mg Hydrocodone Bitart/Acetaminophen ([place] 5mg-325mg) 1 - 2 tablet PO Q4H PRN PRN PRN Reason: MODERATE PAIN (4-5/10) Last Admin: 12/07/18 08:53 Dose: 2 tablet Al Hydroxide/Mg Hydroxide (Mylanta Ii) 30 ml PO Q6H PRN PRN PRN Reason: Gastric Burning Albuterol/Ipratropium (Duoneb) 3 ml INHALATION Q4HWA.RT [facility] Last Admin: 12/07/18 07:24 Dose: 3 ml Apixaban (Eliquis) 5 mg PO BID [facility] Last Admin: 12/07/18 08:55 Dose: 5 mg Atorvastatin Calcium (Lipitor) 20 mg PO QHS [facility] Last Admin: 12/06/18 22:53 Dose: 20 mg Bisacodyl (Dulcolax) 10 mg RECTAL DAILY PRN PRN PRN Reason: Constipation Dextrose (D50w Syringe) 0 gm IV X1 PRN; Protocol PRN Reason: Hypoglycemia Diltiazem HCl (Cardizem Cd) 240 mg PO DAILY [facility] Last Admin: 12/07/18 08:54 Dose: 240 mg Docusate Sodium (Colace) 200 mg PO BID PRN PRN PRN Reason: Constipation Doxycycline Monohydrate (Doxycycline) 100 mg PO BID [facility] Stop: 12/12/18 15:01 Last Admin: 12/07/18 08:54 Dose: 100 mg Famotidine (Pepcid) 20 mg PO BID [facility] Last Admin: 12/07/18 08:56 Dose: 20 mg Furosemide (Lasix) 40 mg PO BIDLX [facility] Last Admin: 12/07/18 08:55 Dose: 40 mg Gabapentin (Neurontin) 600 mg PO BIDCM [facility] Last Admin: 12/07/18 08:26 Dose: 600 mg Glucagon () 1 mg IM .X1 PRN PRN Reason: Hypoglycemia Sodium Chloride () 1,000 mls @ 15 mls/hr IV .Q48H [facility] Last Admin: 12/07/18 05:53 Dose: Not Given Insulin Human Lispro (Humalog Kwikpen (Bkc)) 0 unit SC ACHS [facility]; Protocol Last Admin: 12/07/18 08:01 Dose: Not Given Ketorolac Tromethamine (Toradol) 15 mg IV X1 ONE Stop: 12/07/18 09:50 Lamotrigine (Lamictal) 100 mg PO QHS [facility] Last Admin: 12/06/18 22:53 Dose: 100 mg Lorazepam (Ativan) 0.5 mg PO BID PRN PRN Reason: ANXIETY Last Admin: 12/06/18 22:51 Dose: 0.5 mg Metoprolol Tartrate 50 mg/ (Metoprolol Tartrate 25 mg) 75 mg PO BID [facility] Last Admin: 12/07/18 08:55 Dose: 75 mg Nutritional Formula (Lactose Free) (Ensure Enlive) 120 ml PO 4X/DAY [facility] Last Admin: 12/07/18 08:55 Dose: 120 ml Ondansetron HCl (Zofran) 4 mg IV Q8H PRN PRN PRN Reason: Nausea Polyethylene Glycol (Miralax) 17 gm PO DAILY [facility] Last Admin: 12/07/18 08:55 Dose: 17 gm Promethazine HCl (Phenergan) 12.5 mg IM Q6H PRN PRN; Protocol PRN Reason: NAUSEA/VOMITING Sodium Chloride () 5 - 15 ml IV UD PRN PRN Reason: SALINE FLUSH Last Admin: 12/05/18 15:54 Dose: 10 ml Sodium Chloride ([place] Nasal [place]) 1 spray NASAL TID PRN PRN PRN Reason: NASAL DRYNESS Last Admin: 12/02/18 20:05 Dose: 1 spray Trazodone HCl (Desyrel) 50 mg PO QHS PRN PRN PRN Reason: insomnia Zolpidem Tartrate (Ambien (Generic)) 5 mg PO QHS PRN PRN PRN Reason: INSOMNIA Medical Necessity - Tobacco Use Smoking Status: Former smoker Assessment/Plan All Active Problems (Last Updated 04/29/18 @ 15:18 by Cee Mcnulty DO) Acute fall (Acute) Fracture of femur, distal, left, closed (Acute) Acute exacerbation of chronic obstructive pulmonary disease (COPD) (Resolved) Parainfluenza virus bronchopneumonia (Resolved) History of MRSA infection (Resolved) Non-healing wound of lower extremity (Acute) Allergic reaction due to correct medicinal substance properly administered (Resolved) Atrial fibrillation with RVR (Resolved) CAP (community acquired pneumonia) (Resolved) Cellulitis of lower leg (Resolved) Influenza B (Resolved) Laceration of head (Resolved) Metabolic alkalosis (Resolved) Pneumonia (Resolved) Syncope and collapse (Resolved) Patient is a 63-year-old lady who slipped on ice injuring her left knee imaging studies obtained on admission demonstrated Comminuted and dorsally angulated fracture of the distal femur, involving the total knee arthroplasty. Admitted to regular nursing floor with consultation placed to orthopedic surgery patient underwent surgical intervention on 12/04/2018 1. Acute comminuted, displaced, closed fracture of the distal femoral diaphysis, proximal to the femoral prosthesis secondary to fall. Patient underwent Revision left total knee replacement entire femoral and tibial component on 12/04/[address] Jenkins currently undergoing PT with plans for patient to be transferred to the inpatient rehab unit pending insurance approval 2. Paroxysmal atrial fibrillation rate controlled on systemic anticoagulation with Eliquis resumed on 12/05/2017 3. Anemia secondary to acute blood loss anemia following surgery monitoring H&H with plans to transfuse if hemoglobin falls below 7 or patient becomes symptomatic 4. COPD without acute exacerbation did continue patient home regimen 5. Obstructive sleep apnea 6. Morbid obesity with BMI of 41.6 7. Hypertension-blood pressure controlled, home medications continued with dose adjustment as needed 8. Depression with anxiety 9. Chronic alcoholic cirrhosis stable 10. DVT prophylaxis on Eliquis Code Visit Inpatient E&M: 47973 Subs Hosp L2
[2018-12-07] MEDS: Ketorolac 15 MG/ML Vial IV (10:30)
[2018-12-07 11:31] LABS: Bedside Glucose 119 mg/dL (70-110)
--- NOTE | 2018-12-07 11:47 | CASEMGMT ---
Addendum entered by Ladonna Castro 12/07/18 13:50: SW spoke with Tiffanie in [facility] stating she called [facility] and they are working on referral. Original Note: Social Work Note SW spoke with Tiffanie with [facility] stating Dr. Kumari has accepted pt and she has [facility]. Tiffanie states she will let this worker know once she hears from pt's insurance. SW spoke with Tiffanie with [facility] again and per Tiffanie she has received calls from nursing about pt stating pt was unable to work with PT/OT today. Tiffanie states she will need to have pt work with PT/OT and she would like to come speak to pt after lunch regarding RU. Tiffanie states she still hasn't heard anything from pt's insurance. Plan: Tiffanie to meet with pt after lunch RU pending pre-cert Ladonna Castro CABLE TELEVISION ACCESS COORDINATOR, INSURANCE INSTRUCTOR
--- NOTE | 2018-12-07 15:30 | CASEMGMT ---
Social Work Note SW received message from Tiffanie with RU stating pt has been approved for RU. Physician, RN and pt updated. Plan: RU today Ladonna Castro BANQUET ATTENDANT, BELL CAPTAIN
--- NOTE | 2018-12-07 15:46 | DCINST_ITS ---
- Discharge Diagnoses Current Active Problems: Current Active and Chronic Problems (Last Updated 04/29/18 @ 15:18 by Cee Mcnulty DO) Acute fall (Acute) Fracture of femur, distal, left, closed (Acute) You will use the following diet at home:: Regular Allergies/Adverse Reactions: Allergies morphine Allergy (Verified 12/01/18 18:51) Itching nifedipine [From Procardia] Adverse Reaction (Verified 12/01/18 23:56) Causes elevated BP Medications to take at Discharge Furosemide 40 mg PO BID 02/05/16 fluoxetine 40 mg capsule 40 mg PO DAILY 12/29/17 apixaban 5 mg tablet 5 mg PO BID tab 07/21/18 trazodone 100 mg tablet 100 mg PO QHS 30 Days #30 07/21/18 Lamotrigine [Lamictal] 100 mg PO QHS 08/06/18 cholecalciferol (vitamin D3) 50,000 unit capsule 50,000 unit PO LUDWIG 30 Days #4 cap 09/07/18 gabapentin 600 mg tablet 600 mg PO BID 30 Days #30 tab 09/07/18 Ascorbic Acid [Vitamin C] 1,500 mg PO DAILY 10/27/18 Baclofen 10 mg PO TID 10/27/18 Lorazepam [Ativan] 1 mg PO BID PRN 10/27/18 Metoprolol Tartrate 75 mg PO BID 10/27/18 Oxybutynin Chloride 10 mg PO BID 10/27/18 Potassium Chloride [Klor-Con M20] 40 meq PO BID 10/27/18 Simvastatin 40 mg PO QHS 10/27/18 S-Adenosylmethionine Sul Tosyl [Ray-E] 400 mg PO BID 12/01/18 Diltiazem HCl [Diltiazem 24Hr ER] 240 mg PO DAILY 12/02/18 Acetaminophen [Tylenol Tablet] 650 mg PO Q6H PRN PRN tablet 12/07/18 Bisacodyl [Dulcolax] 10 mg RECTAL DAILY PRN PRN suppos. 12/07/18 Polyethylene Glycol 3350 [Miralax] 17 gm PO DAILY packet 12/07/18 Zolpidem Tartrate [Ambien] 5 mg PO QHS PRN PRN tablet 12/07/18 Primary Care Physician: Osiel Grimaldo Chi, MD [Primary Care Provider] - Test Results: Test results from this visit will be discussed in further detail at your follow- up appointment, if applicable. Please Follow Up With: Antonio Jenkins MD When: IN 1-2 WEEKS Proposed Discharge Date: 12/07/18
--- NOTE | 2018-12-07 16:05 | PCM.DC.SUM ---
Discharge Date and Diagnosis - Problem List Patient Problems: Active and Suspected Problems (Last Updated 04/29/18 @ 15:18 by Cee Mcnulty DO) Acute fall (Acute) Fracture of femur, distal, left, closed (Acute) Date of Admission: 12/01/18 Date of Discharge: 12/07/18 - Primary Discharge Diagnosis Active and Suspected Problems (Last Updated 04/29/18 @ 15:18 by Cee Mcnulty DO) Acute fall (Acute) Fracture of femur, distal, left, closed (Acute) - Secondary Discharge Diagnosis Chronic Problems (Last Updated 04/29/18 @ 15:18 by Cee Mcnulty DO) Sinusitis (Chronic) Hypokalemia (Chronic) Paroxysmal atrial fibrillation (Chronic) Atrial fibrillation and flutter (Chronic) Palpitations (Chronic) Diabetes mellitus (Chronic) Degeneration of lumbosacral intervertebral disc (Chronic) Lumbosacral spondylosis (Chronic) History of left heart catheterization (Chronic ~01/2014) 01/2013, 01/2014 COPD (chronic obstructive pulmonary disease) (Chronic) Bilateral lower extremity edema (Chronic) Morbid obesity with BMI of 45.0-49.9, adult (Chronic) Non-alcoholic cirrhosis (Chronic) GERD (gastroesophageal reflux disease) (Chronic) Hypertension (Chronic) LUIS (obstructive sleep apnea) (Chronic) Tremor (Chronic) Anxiety (Chronic) Hospital Course and Treatment Imaging Results: Clinical Impression(s) from Imaging Studies Brain CT 12/01/18 19:14 IMPRESSION: 1. No evidence of acute intracranial or calvarial abnormality. 2. Left occipital subcutaneous hematoma. Electronically Signed: Félix Mcintyre DO at 19:57 EST Tel [phone], Service support , Cervical Spine CT 12/01/18 19:14 IMPRESSION: Degenerative changes of the cervical spine without acute fracture or subluxation. There is no marked interval change Electronically Signed: Félix Mcintyre DO at 20:10 EST Tel [phone], Service support , Knee X-Ray 12/01/18 19:14 IMPRESSION: 1. Acute comminuted displaced fracture of distal femoral diaphysis. 2. Osteoporosis. 3. Status post total left knee arthroplasty. Electronically Signed: Leonarda Felix MD at 20:50 EST , Service support , Abdomen/Pelvis CT 12/01/18 19:15 IMPRESSION: 1. Stranding of the soft tissues over the right buttock and hip suggesting soft tissue injury. There is no underlying fracture or dislocation. 2. No evidence of acute intra-abdominal or pelvic abnormality. There is no other major interval change when compared to the previous study. Electronically Signed: Félix Mcintyre DO at 20:06 EST Tel [phone], Service support , Femur X-Ray 12/01/18 19:47 IMPRESSION: Comminuted and dorsally angulated fracture of the distal femur, involving the total knee arthroplasty. Electronically Signed: Félix Mcintyre DO at 20:45 EST Tel [phone], Service support , Chest X-Ray 12/01/18 19:55 IMPRESSION: No acute cardiopulmonary disease. Electronically Signed: Félix Mcintyre DO at 20:43 EST Tel [phone], Service support , Brain CT 12/03/18 20:15 IMPRESSION: Small persistent hematoma in the scalp overlying left occipital bone without skull fracture or acute intracranial bleed Mild periventricular white matter ischemic changes Electronically Signed: Dakotah White MD at 22:22 EST , Service support , Knee X-Ray 12/04/18 13:09 IMPRESSION: Radiographic alignment of left knee replacement with recent operative changes. Electronically Signed: Say Kimball MD at 18:07 EST , Service support , Operations: None Summary of Care Provided: Patient is a 63-year-old lady who slipped on ice injuring her left knee imaging studies obtained on admission demonstrated Comminuted and dorsally angulated fracture of the distal femur, involving the total knee arthroplasty. Admitted to regular nursing floor with consultation placed to orthopedic surgery patient underwent surgical intervention on 12/04/2018 1. Acute comminuted, displaced, closed fracture of the distal femoral diaphysis, proximal to the femoral prosthesis secondary to fall. Patient underwent Revision left total knee replacement entire femoral and tibial component on 12/04/[address] Jenkins patient was transferred to the inpatient rehab unit once insurance approval was obtained 2. Paroxysmal atrial fibrillation rate controlled on systemic anticoagulation with Eliquis resumed on 12/05/2017 3. Anemia secondary to acute blood loss anemia following surgery monitored H&H patient did not meet criteria for blood transfusion symptomatic 4. COPD without acute exacerbation did continue patient home regimen 5. Obstructive sleep apnea 6. Morbid obesity with BMI of 41.6 7. Hypertension-blood pressure controlled, home medications continued with dose adjustment as needed 8. Depression with anxiety 9. Chronic alcoholic cirrhosis stable 10. DVT prophylaxis on Eliquis Patient Problems: Active and Suspected Problems (Last Updated 04/29/18 @ 15:18 by Cee Mcnulty DO) Acute fall (Acute) Fracture of femur, distal, left, closed (Acute) - Physical Exam General: Alert, Oriented x3 HEENT: Atraumatic Neck: Supple, No JVD Lungs: Diminished Neurological: Neuro grossly intact Psych/Mental Status: Normal Affect Vital Signs Temp Pulse Resp BP Pulse Ox 97.9 F 82 16 111/76 95 12/07/18 14:04 12/07/18 14:46 12/07/18 14:46 12/07/18 14:04 12/07/18 14:04 Oxygen Flow Rate (L/min) 2 Oxygen Delivery Method Room Air Weight: 124 kg Body Mass Index (BMI) 41.5 Intake and Output for Last 24 Hours 12/05/18 12/06/18 12/07/18 23:59 23:59 23:59 Intake Total 1145 / 1145 1020 / 1020 Output Total 3005 / 3005 1600 / 1600 Balance -1860 / -1860 -580 / -580 Microbiology Past 72 Hours 12/04/18 12:30 Gram Stain - Final Tissue - Other Wound Culture - Final No growth aerobically. Anaerobic Culture - Preliminary No growth in 48 hours. 12/04/18 12:30 Gram Stain - Final Tissue - Other Wound Culture - Final No growth aerobically. Anaerobic Culture - Preliminary No growth in 48 hours. 12/04/18 12:30 Gram Stain - Final Tissue - Other Wound Culture - Final No growth aerobically. Anaerobic Culture - Preliminary No growth in 48 hours. Laboratory Tests Past 24 Hrs 12/07/18 12/07/18 06:16 06:16 WBC 10.1 RBC 3.11 L Hgb 9.2 L Hct 30.2 L MCV 97.1 MCH 29.6 MCHC 30.5 L RDW 15.3 H RDW Differential 51.6 H Plt Count 252 MPV 11.3 Sodium 143 Potassium 3.6 Chloride 101 Carbon Dioxide 33.0 H Anion Gap 9 BUN 29 H Creatinine 0.75 Estim Creat Clear Calc 76.44 Est GFR (MDRD) Af Amer 100 Est GFR (MDRD) Non-Af 83 BUN/Creatinine Ratio 38.6 H Glucose 105 Calcium 8.6 Magnesium 2.1 POC Glucose 12/07/18 12/07/18 12/06/18 11:25 06:48 22:49 POC Glucose 119 H 119 H 136 H 12/06/18 16:29 POC Glucose 161 H Discharge Diet: No Restrictions Home Medications: Medications to take at Discharge Furosemide 40 mg PO BID 02/05/16 fluoxetine 40 mg capsule 40 mg PO DAILY 12/29/17 apixaban 5 mg tablet 5 mg PO BID tab 07/21/18 trazodone 100 mg tablet 100 mg PO QHS 30 Days #30 07/21/18 Lamotrigine [Lamictal] 100 mg PO QHS 08/06/18 cholecalciferol (vitamin D3) 50,000 unit capsule 50,000 unit PO LUDWIG 30 Days #4 cap 09/07/18 gabapentin 600 mg tablet 600 mg PO BID 30 Days #30 tab 09/07/18 Ascorbic Acid [Vitamin C] 1,500 mg PO DAILY 10/27/18 Baclofen 10 mg PO TID 10/27/18 Lorazepam [Ativan] 1 mg PO BID PRN 10/27/18 Metoprolol Tartrate 75 mg PO BID 10/27/18 Oxybutynin Chloride 10 mg PO BID 10/27/18 Potassium Chloride [Klor-Con M20] 40 meq PO BID 10/27/18 Simvastatin 40 mg PO QHS 10/27/18 S-Adenosylmethionine Sul Tosyl [Ray-E] 400 mg PO BID 12/01/18 Diltiazem HCl [Diltiazem 24Hr ER] 240 mg PO DAILY 12/02/18 Acetaminophen [Tylenol Tablet] 650 mg PO Q6H PRN PRN tablet 12/07/18 Bisacodyl [Dulcolax] 10 mg RECTAL DAILY PRN PRN suppos. 12/07/18 Polyethylene Glycol 3350 [Miralax] 17 gm PO DAILY packet 12/07/18 Zolpidem Tartrate [Ambien] 5 mg PO QHS PRN PRN tablet 12/07/18 Primary Care Physician: Osiel Grimaldo Chi, MD [Primary Care Provider] - Please Follow Up With: Antonio Jenkins MD When: IN 1-2 WEEKS Disposition: Inpt Rehab Unit/Facility Minutes spent on discharge:: 45 Patient Condition:: Stable Medical Necessity - Tobacco Use Smoking Status: Former smoker Meaningful Use Info Meaningful Use Diagnoses (Choose all that apply): None applicable Code Visit Inpatient E&M: 79260 Disch Hosp
--- NOTE | 2018-12-07 16:05 | NURSING ---
call placed to rehab unit and report given to RN whom will be taking over care for this patient
[2018-12-07] MEDS: Insulin Lispro 100 UNIT/ML INSULN.PEN SC (16:47)
[2018-12-07 17:16] LABS: Bedside Glucose 166 mg/dL (70-110)
== END 2018-12-07 17:47 | DRG 302 ==
LOC: ED 19:23 → MS3 23:06
PROVIDERS: Anesthesiology; Family Medicine; Physician Assistant; Specialist; Admitting Provider Internal Medicine; Emergency Provider Emergency Medicine; Family Provider Family Medicine Geriatric Medicine; PCP Family Medicine Geriatric Medicine; Visit Provider Internal Medicine
PROC: 0SPD0JZ Removal of Synthetic Substitute from Left Knee Joint, Open Approach (ICD-10-PCS; principal; 2018-12-04 07:35)
DX: S72.492A Other fracture of lower end of left femur, initial encounter for closed fracture (principal); M97.12XA Periprosthetic fracture around internal prosthetic left knee joint, initial encounter; W00.0XXA Fall on same level due to ice and snow, initial encounter; E66.01 Morbid (severe) obesity due to excess calories; Z68.41 Body mass index [BMI] 40.0-44.9, adult; G47.33 Obstructive sleep apnea (adult) (pediatric); I48.0 Paroxysmal atrial fibrillation; E87.6 Hypokalemia; D62 Acute posthemorrhagic anemia; I10 Essential (primary) hypertension; K70.30 Alcoholic cirrhosis of liver without ascites; F41.8 Other specified anxiety disorders; Z79.01 Long term (current) use of anticoagulants; Z79.899 Other long term (current) drug therapy; J44.9 Chronic obstructive pulmonary disease, unspecified; Z87.891 Personal history of nicotine dependence; Z86.14 Personal history of Methicillin resistant Staphylococcus aureus infection; S00.03XA Contusion of scalp, initial encounter
CPT/HCPCS: 36415; 70450; 71045; 72125; 73552; 73560; 74176; 80048; 82962; 83036; 83735; 84100; 85025; 85027; 85610; 85730; 86850; 86900; 87015; 87070; 87075; 87102; 87116; 87205; 87206; 93005; 94640; 97110; 97162; 97166; 97530; 97535; 97802; 99251; 99284; C1776; J7030; J7040; A4216; G0463; J2405

== ENCOUNTER 2018-12-07 18:00 | Inpatient (IN) | payer MEDICAID, SELFPAY ==
[2018-12-04 07:47] VITALS: BMI 41.5
[2018-12-07 18:00] VITALS: BP 111/58; PULSE 82; RESP 18; TEMP 36.8; O2SAT 95
[2018-12-07 19:05] VITALS: BMI 41.3; BMI 41.4
--- NOTE | 2018-12-07 19:05 | NURSING ---
Aware she is a fall risk and must ask for staff assist. Demonstrated call shook use.
[2018-12-07 20:50] VITALS: O2SAT 94
[2018-12-07 21:08] VITALS: BP 105/62; PULSE 80; RESP 18; TEMP 36.8; O2SAT 92
[2018-12-07] MEDS: Gabapentin 600 MG Tablet PO (22:15)
[2018-12-07] MEDS: Senna/Docusate Sodium 1 Tablet 2 TABLET PO (22:15)
[2018-12-07 22:16] VITALS: BP 105/62; PULSE 80
[2018-12-07] MEDS: lamoTRIgine 100 MG Tablet PO (22:16)
[2018-12-07] MEDS: Atorvastatin Calcium 20 MG Tablet PO (22:16)
[2018-12-07] MEDS: Baclofen 10 MG Tablet PO (22:16)
[2018-12-07] MEDS: Metoprolol Tartrate 25 MG Tablet 75 MG PO (22:16)
[2018-12-07] MEDS: APIXABAN 5 MG TABLET PO (22:16)
[2018-12-07] MEDS: traZODone 100 MG Tablet PO (22:17)
[2018-12-07] MEDS: Oxybutynin 5 MG Tablet 10 MG PO (22:17)
--- NOTE | 2018-12-07 23:21 | NURSING ---
DDR PAINTSIL RETURNS CALL AFTER BEING PAGED BY [facility] JOINERY FACTORY WORKER. INFORMED PT HAS PAIN RATED #10 TO L FEMUR. ORDERS GIVEN.
[2018-12-07] MEDS: Acetaminophen 325 MG Tablet 650 MG PO (23:24)
--- NOTE | 2018-12-08 00:05 | NURSING ---
PT SLEEPING AT THIS TIME. INSTRUCTED EARLIER TO USE CALL LIGHT IF HAVING PAIN WHEN WAKES UP DURING NIGHT.
--- NOTE | 2018-12-08 02:00 | NURSING ---
PT REMAINS ASLEEP AND HAS NOT WOKEN UP TO REQUEST ONE TIME ORDER FOR STRONGER PAIN MED (OXYIR).
[2018-12-08] MEDS: oxyCODONE 5 MG Tablet PO ×3 (02:51→19:58)
--- NOTE | 2018-12-08 02:54 | NURSING ---
PT WAKES TO USE BSC AND NOW WANTS PAIN MED-GIVEN.
[2018-12-08 05:54] LABS: Hematocrit 31.1 % (37-47); Hemoglobin 9.5 g/dl (12.0-15.0); Mean Corp Hgb Conc 30.5 g/gl (32-36); Mean Corpuscular Hgb 29.4 pg (27.0-32.0); Mean Corpuscular Volume 96.3 fL (81-99); Mean Platelet Vol. 11.1 fl (6.2-12.0); Platelet Count 296 K/mm3 (150-450); RBC Distribution Width CV 15.4 % (11.6-14.6); RBC Distribution Width SD 51.8 fl (35.1-43.9); Red Blood Count 3.23 M/mm3 (4.2-5.4); White Blood Count 12.1 K/mm3 (4.4-11.0)
[2018-12-08 05:55] LABS: Scan Indicated on CBC? Y/N NO
[2018-12-08 06:06] LABS: Anion Gap 6 (5-15); BUN 28 mg/dL (7-18); BUN/Creat Ratio 40.4 RATIO (10-20); Calcium,Total 8.6 mg/dL (8.5-10.1); Chloride 102 mmol/L (98-107); Creatinine, Serum 0.69 mg/dL (0.55-1.02); EST Glomerular Filtration Rate 91 mL/min (>60); Est Glom Filt Rate - Afr Amer 110 mL/min (>60); Estimated Creatinine Clearance 83.09 ml/min; Glucose 111 mg/dL (74-106); Potassium 3.5 mmol/L (3.5-5.1); Sodium Level 142 mmol/L (136-145)
[2018-12-08] MEDS: Acetaminophen 325 MG Tablet 650 MG PO ×2 (06:53→17:41)
[2018-12-08] MEDS: Baclofen 10 MG Tablet PO ×3 (06:53→20:00)
[2018-12-08 07:08] VITALS: BP 108/67; PULSE 78; RESP 12; TEMP 36.5; O2SAT 93
[2018-12-08 07:44] VITALS: BP 108/67; PULSE 78
[2018-12-08] MEDS: dilTIAZem CD 240 MG Capsule PO (07:44)
[2018-12-08] MEDS: FLUoxetine 20 MG Capsule 40 MG PO (07:44)
[2018-12-08] MEDS: APIXABAN 5 MG TABLET PO ×2 (07:44→20:00)
[2018-12-08] MEDS: Oxybutynin 5 MG Tablet 10 MG PO ×2 (07:44→20:00)
[2018-12-08] MEDS: Metoprolol Tartrate 25 MG Tablet 75 MG PO ×2 (07:44→19:59)
[2018-12-08] MEDS: Furosemide 40 MG Tablet PO ×2 (07:44→17:39)
[2018-12-08] MEDS: Gabapentin 600 MG Tablet PO ×2 (07:45→19:59)
[2018-12-08] MEDS: Ascorbic Acid 500 MG Tablet 1500 MG PO (07:45)
[2018-12-08] MEDS: Senna/Docusate Sodium 1 Tablet 2 TABLET PO ×2 (07:45→19:58)
[2018-12-08] MEDS: Polyethylene Glycol 3350 17 GM PACKET PO (07:45)
--- NOTE | 2018-12-08 08:31 | HP.PCM_ITS ---
Problem List (1) Acute fall Status: Acute (2) Fracture of femur, distal, left, closed Status: Acute (3) History of MRSA infection Status: Resolved (4) Paroxysmal atrial fibrillation Status: Chronic (5) Atrial fibrillation and flutter Status: Chronic (6) Degeneration of lumbosacral intervertebral disc Status: Chronic (7) Lumbosacral spondylosis Status: Chronic (8) COPD (chronic obstructive pulmonary disease) Status: Chronic (9) Non-healing wound of lower extremity Status: Acute (10) Morbid obesity with BMI of 45.0-49.9, adult Status: Chronic (11) Non-alcoholic cirrhosis Status: Chronic (12) GERD (gastroesophageal reflux disease) Status: Chronic (13) Hypertension Status: Chronic Qualifiers: Hypertension type: essential hypertension Qualified Code(s): I10 - Essent ial (primary) hypertension (14) LUIS (obstructive sleep apnea) Status: Chronic (15) Debility Status: Acute History of Present Illness Date of Admission: 12/07/18 Chief Complaint: Debility s/p fall, left distal femur fracture s/p total knee replacement The patient is a 63 year old F with PMH HTN, Afib on Eliquis, LUIS, morbid obesity, COPD, GERD, chronic non healing ulcer bilateral LE, Lumbar spondylosis with lumbar radiculopathy and degenerative disc disease, depression/anxiety admitted to [facility] on 12/07/18 with debility s/p fall and left distal femur closed fracture s/p revision total left knee replacement done by Dr. Jenkins on 12/04/18, for >3 hrs therapy daily with a goal of returning back home at or near her prior level of functional independence. Per patient she fell on ice on 12/03/18, had femur fracture, per patient she hit her back of the head also, but denies any LOC, had some double vision since but has improved, denies any MARINO. Lives with her BF and brother in an apartment, has 2 steps to go into the house, does not use cane or walker at baseline, denies any frequent falls, does drive and does not need any assistance for her ADLs at baseline. Per patient she has chronic low back pain, does go to pain management for the same. Has occasional radicular symptoms but denies the same at present. [] Past Medical History Past Medical History (Chronic Problems): Chronic Problems (Last Updated 04/29/18 @ 15:18 by Cee Mcnulty DO) Sinusitis (Chronic) Hypokalemia (Chronic) Paroxysmal atrial fibrillation (Chronic) Atrial fibrillation and flutter (Chronic) Palpitations (Chronic) Diabetes mellitus (Chronic) Degeneration of lumbosacral intervertebral disc (Chronic) Lumbosacral spondylosis (Chronic) History of left heart catheterization (Chronic ~01/2014) 01/2013, 01/2014 COPD (chronic obstructive pulmonary disease) (Chronic) Bilateral lower extremity edema (Chronic) Morbid obesity with BMI of 45.0-49.9, adult (Chronic) Non-alcoholic cirrhosis (Chronic) GERD (gastroesophageal reflux disease) (Chronic) Hypertension (Chronic) LUIS (obstructive sleep apnea) (Chronic) Tremor (Chronic) Anxiety (Chronic) Medical History: Medical History (Last Updated 04/29/18 @ 15:18 by Cee Mcnulty DO) Palpitations (Chronic) R00.2 COPD (chronic obstructive pulmonary disease) (Chronic) J44.9 Bilateral lower extremity edema (Chronic) R60.0 Morbid obesity with BMI of 45.0-49.9, adult (Chronic) E66.01, Z68.42 Non-alcoholic cirrhosis (Chronic) GERD (gastroesophageal reflux disease) (Chronic) K21.9 Hypertension (Chronic) I10 LUIS (obstructive sleep apnea) (Chronic) G47.33 Tremor (Chronic) R25.1 Anxiety (Chronic) F41.9 Dizziness and giddiness R42 Edema R60.9 Shortness of breath R06.02 History of hysterectomy Z90.710 Blister (nonthermal), left knee, initial encounter (Inactive) S80.222A Chest pain (Inactive) R07.9 Allergies morphine Allergy (Verified 12/01/18 18:51) Itching nifedipine [From Procardia] Adverse Reaction (Verified 12/01/18 23:56) Causes elevated BP Home Medications: Ambulatory Orders Medication Instructions Recorded Furosemide 40 mg PO BID 02/05/16 fluoxetine 40 mg capsule 40 mg PO DAILY 12/29/17 apixaban 5 mg tablet 5 mg PO BID tab 07/21/18 trazodone 100 mg tablet 100 mg PO QHS 30 Days #30 07/21/18 Lamotrigine [Lamictal] 100 mg PO QHS 08/06/18 cholecalciferol (vitamin D3) 50,000 unit PO LUDWIG 30 Days #4 cap 18 50,000 unit capsule gabapentin 600 mg tablet 600 mg PO BID 30 Days #30 tab 09/07/18 Ascorbic Acid [Vitamin C] 1,500 mg PO DAILY 10/27/18 Baclofen 10 mg PO TID 10/27/18 Lorazepam [Ativan] 1 mg PO BID PRN 10/27/18 Metoprolol Tartrate 75 mg PO BID 10/27/18 Oxybutynin Chloride 10 mg PO BID 10/27/18 Potassium Chloride [Klor-Con M20] 40 meq PO BID 10/27/18 Simvastatin 40 mg PO QHS 10/27/18 S-Adenosylmethionine Sul Tosyl 400 mg PO BID 12/01/18 [Ray-E] Diltiazem HCl [Diltiazem 24Hr ER] 240 mg PO DAILY 12/02/18 Acetaminophen [Tylenol Tablet] 650 mg PO Q6H PRN PRN tablet 12/07/18 Bisacodyl [Dulcolax] 10 mg RECTAL DAILY PRN PRN suppos. 12/07/18 Polyethylene Glycol 3350 [Miralax] 17 gm PO DAILY 12/07/18 Zolpidem Tartrate [Ambien] 5 mg PO QHS PRN PRN tablet 12/07/18 Surgical History: Surgical History (Last Updated 03/31/18 @ 10:24 by John Braswell) History of left heart catheterization (Chronic) Onset Date: ~01/2014 Z98.890 01/2013, 01/2014 History of carpal tunnel release Z98.890 History of carpal tunnel release of both wrists Z98.890 History of tonsillectomy and adenoidectomy Z98.890 History of total left knee replacement (TKR) Z96.652 History of total right knee replacement (TKR) Z96.651 Hx of cholecystectomy Z90.49 vaginal fistula repair Surgical History: - - T+A, Cholecystectomy, Hysterectomy, Vaginal fistula repairs, L TKR, Bunion/hammertoe RLE, Carpal tunnel BL. 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 Lives: - - with BF and brother Smoking Status: Former smoker Alcohol: None Drugs: None - *Family History Maternal Family History: Family History (Last Updated 03/31/18 @ 10:24 by John Braswell) Mother Breast cancer Diabetes Brother Cancer History Items: Diabetes Paternal Family History: Family History (Last Updated 03/31/18 @ 10:24 by John Braswell) Mother Breast cancer Diabetes Brother Cancer History Items: Cancer Review of Systems Constitutional: Reports: - - complete ROS negative except as documented in HPI VTE Information - Inpt Only VTE Present on Admission: No VTE Mechan Device Prophylaxis: SCD's, Knee High BECCA Hose VTE Pharm Prophylaxis ordered?: Yes Patient Problems: Active and Suspected Problems (Last Updated 04/29/18 @ 15:18 by Cee Mcnulty DO) Debility (Acute) - Physical Exam General: Alert HEENT: Normocephalic Neck: Supple Lungs: Normal air movement Cardiovascular: Normal S1, Normal S2 Abdomen: Bowel Sounds Present Extremities: No cyanosis Neurological: Cranial nerves II-XII grossly intact, Deep Tendon Reflexes 2+/4 and Symmetrical, Neuro grossly intact, Motor Exam 5/5 strength throughout, Muscle tone normal, Sensory exam intact to light touch and pain, Coordination normal Psych/Mental Status: Normal Affect Vital Signs Temp Pulse Resp BP Pulse Ox 97.7 F L 78 12 108/67 93 12/08/18 07:08 12/08/18 07:44 12/08/18 07:08 12/08/18 07:44 12/08/18 07:08 Oxygen Delivery Method Room Air Weight: 123.377 kg Body Mass Index (BMI) 41.3 Intake and Output for Last 24 Hours 12/06/18 12/07/18 12/08/18 23:59 23:59 23:59 Intake Total 360 / 360 Output Total 300 / 300 500 / 500 Balance -300 / -300 -140 / -140 Laboratory Tests Past 24 Hrs 12/08/18 12/08/18 05:35 05:35 WBC 12.1 H RBC 3.23 L Hgb 9.5 L Hct 31.1 L MCV 96.3 MCH 29.4 MCHC 30.5 L RDW 15.4 H RDW Differential 51.8 H Plt Count 296 MPV 11.1 Sodium 142 Potassium 3.5 Chloride 102 Carbon Dioxide 34.0 H Anion Gap 6 BUN 28 H Creatinine 0.69 Estim Creat Clear Calc 83.09 Est GFR (MDRD) Af Amer 110 Est GFR (MDRD) Non-Af 91 BUN/Creatinine Ratio 40.4 H Glucose 111 H Calcium 8.6 Assessment/Plan All Active Problems (Last Updated 04/29/18 @ 15:18 by Cee Mcnulty DO) Acute fall (Acute) Fracture of femur, distal, left, closed (Acute) Debility (Acute) Acute exacerbation of chronic obstructive pulmonary disease (COPD) (Resolved) Parainfluenza virus bronchopneumonia (Resolved) History of MRSA infection (Resolved) Non-healing wound of lower extremity (Acute) Allergic reaction due to correct medicinal substance properly administered (Resolved) Atrial fibrillation with RVR (Resolved) CAP (community acquired pneumonia) (Resolved) Cellulitis of lower leg (Resolved) Influenza B (Resolved) Laceration of head (Resolved) Metabolic alkalosis (Resolved) Pneumonia (Resolved) Syncope and collapse (Resolved) The patient is a 63 year old F with PMH HTN, Afib on Eliquis, LUIS, morbid obesity, COPD, GERD, chronic non healing ulcer bilateral LE, Lumbar spondylosis with lumbar radiculopathy and degenerative disc disease, depression/anxiety admitted to [facility] on 12/07/18 with debility s/p fall and left distal femur closed fracture s/p revision total left knee replacement done by Dr. Jenkins on 12/04/18, for >3 hrs therapy daily with a goal of returning back home at or near her prior level of functional independence. Per patient she fell on ice on 12/03/18, had femur fracture, per patient she hit her back of the head also, but denies any LOC, had some double vision since but has improved, denies any MARINO. Lives with her BF and brother in an apartment, has 2 steps to go into the house, does not use cane or walker at baseline, denies any frequent falls, does drive and does not need any assistance for her ADLs at baseline. Per patient she has chronic low back pain, does go to pain management for the same. Has occasional radicular symptoms but denies the same at present. Plan -PT for gait stability and balance -OT for ADLs -Analgesics PRN -Bowel protocol -Left distal closed femur fracture s/p revision total left knee replacement- further management per orthopedic Dr. Jenkins's recommendation -HTN-on Lasix, Metoprolol and Diltiazem. BP controlled -HLD- on atorvastatin -Afib-On Eliquis 5mg PO BID. Rate controlled. -Chronic low back pain- on gabapentin 600 mg PO BID and Baclofen -Anxiety/mood d/o- on Prozac and Lamictal 100 mg PO q hs. -Urinary disturbances- on Ditropan -GI/DVT prophylaxis- ON Eliquis -Fall precautions -Further medical management per hospitalist recommendation. Hospitalist consult -Follow with PCP, Orthopedic surgeon Dr. Jenkins, and Cardiology as outpatient after discharge. Code Visit Inpatient E&M: 19362 Init Hosp L3
--- NOTE | 2018-12-08 08:52 | REHABEVAL_ITS ---
Admission Information Status Changes from Prescreening?: No changes Identified Actual Problem List:: Falls, Mobility Impaired, Self Care Deficit, BP, Hypertension Potential Problem List:: DVT, Bleeding, Infection, UTI, Aspiration, Falls, Skin Integrity, Depression Risk of Complications DVT: LMWH, BECCA Hose, Sequential Compression Device Bleeding: Monitor Lab Values, Nursing to Teach Precautions for anti-coagulation therapy., Wound, if applicable, to be assessed every shift., Stroke patients assessed for lethargy or change in status. Infection: Clinical Staff to Monitor for S/S of infection:, S/S of infection include fever, redness, warmth, etc. Urinary Tract Infection: Monitor for frequency, burning, discomfort, or incontinence., Nursing will obtain urine sample for urinalysis and C&S when ordered. Aspiration: Clinical staff will monitor for coughing, drooling, congestion., Speech will evaluate swallowing and dsyphasia., Nursing will monitor patient swallowing during meals. Falls: Patient will be evaluated for Fall Precautions, Patient will be placed on Fall Precautions as indicated per protocol. Skin Breakdown: Nursing will assess skin daily using assessment tool., Nursing will place on Skin Breakdown Precautions as indicated. Pain: Clinical staff will assess patient's pain level per protocol., Medications will be given, if needed, and the pain level reassessed., Other methods: Massage, distraction, decrease stimulus, etc. used PRN. Plan of Care Patient requires physician specializing in physical medicine and rehab oversight to provide close medical supervision of rehab issues including: Pain Management, Sleep Problems, Bowel and Bladder, Medical and co-morbidity Management, DVT prophylaxis, Rehabilitation Leadership, Coordination of treatment team Patient needs Physical Therapy: For a minimum of 1 hour, At least 5 out of 7 days Patient needs Physical Therapy to improve:: Mobility, Mobility, Mobility, Strengthening, Transfers, Stretching, ROM, Endurance, Stairs, Gait, Balance Patient needs Occupational Therapy: For a minimum of 1 hour, At least 5 out of 7 days Patient needs Occupational Therapy to improve ADL's incl.: Eating, Grooming, Bathing, Dressing, Toileting, Toilet transfers, Community Reintegration, Higher functioning activities, Household tasks, Adaptive Equipment, Splinting, Other activities as determined Patient requires 24/ Rehabilitation Nursing for: Pain Issues, Identifying and preventing risk factors, Monitoring and reporting current medical conditions, Assisting with ambulation, transfer, and all ADL's, Teaching patients about disease process and medications, Family teaching, Providing safe environment, Bowel and Bladder Issues, Skin integrity, Medication Management Patient needs Labor Gang Supervisor/ Case Management for: Discharge Planning, Arranging Home Equipment or Services, Family Interventions Patient needs Dietary and Nutrition Services for: Adequate Nutrition, Nutritional Supplements, Nutritional Education Goals Patient will remain: free from falls, or injury at time of discharge. Patient will perform bed mobility at: MOD I level of assist. Patient will complete transfers from bed to chair at: MOD I level of assist. Patient will ambulate: 100 feet, with MOD I assist, with LRD Patient will complete upper body dressing at: MOD I level of assist. Patient will complete lower body dressing at: MOD I level of assist. Patient will complete toileting at: MOD I level of assist. Patient will perform bathing at: MOD I level of assist. Patient will complete grooming at: MOD I level of assist. Patient will complete home management skills at: MOD I level of assist. Patient will achieve: 12 stairs, at MOD I assist Patient will have pain level of: of 3 or less Patient's skin will: remain intact, free from infection. Patient will receive: adequate nutrition. Discharge Planning Pt Prognosis for Sig. Practical Improv. w/in Reasonable Time: Good Estimated Length of stay (days): 16 Anticipated D/C Destination: Home with Outpt Therapy Was Preadmission Assessment Accurate?: Yes
--- NOTE | 2018-12-08 10:04 | NURSING ---
Called Dr. Jenkins's office to clarify orders left message [phone]
--- NOTE | 2018-12-08 11:57 | PN_ITS ---
Patient Problems: Active and Suspected Problems (Last Updated 04/29/18 @ 15:18 by Cee Mcnulty DO) Debility (Acute) Subjective: Patient is a 63-year-old lady who slipped on ice injuring her left knee imaging studies obtained on admission demonstrated Comminuted and dorsally angulated fracture of the distal femur, involving the total knee arthroplasty. Admitted to regular nursing floor with consultation placed to orthopedic surgery patient underwent surgical intervention on 12/04/2018 [facility] once her medical condition stabilized. 12/08/2018: Patient seen complains of significant pain in the left knee rating pain 9 out of 10. OxyIR added to patient pain regimen Objective: GENERAL: cooperative HEENT: Atraumatic; moist oral mucosa EYES; Anicteric, Normal Conjunctiva NECK; supple, normal thyroid, no distended JVD. RESPIRATORY: Diminished to auscultation bilaterally, CARDIOVASCULAR: Regular S1 S2, no audible murmurs GI: soft, non-tender, normoactive bowel sounds, : No Renal angle tenderness; EXTREMITIES: No edema, no clubbing, no cyanosis. MUSCULOSKELETAL: left Knee surgical dressing NEURO: Awake; no lateralizing signs. SKIN: No Rash PSYCH; Normal affect Vitals/I&O's: Vital Signs Temp Pulse Resp BP Pulse Ox 97.7 F L 78 12 108/67 93 12/08/18 07:08 12/08/18 07:44 12/08/18 07:08 12/08/18 07:44 12/08/18 07:08 Oxygen Delivery Method Room Air Weight: 123.37 kg Body Mass Index (BMI) 41.3 Intake and Output for Last 24 Hours 12/06/18 12/07/18 12/08/18 23:59 23:59 23:59 Intake Total 360 / 360 Output Total 300 / 300 500 / 500 Balance -300 / -300 -140 / -140 Laboratory Results 12/08/18 05:35: WBC 12.1 H, RBC 3.23 L, Hgb 9.5 L, Hct 31.1 L, MCV 96.3, MCH 29.4, MCHC 30.5 L, RDW 15.4 H, RDW Differential 51.8 H, Plt Count 296, MPV 11.1 12/08/18 05:35: Sodium 142, Potassium 3.5, Chloride 102, Carbon Dioxide 34.0 H, Anion Gap 6, BUN 28 H, Creatinine 0.69, Estim Creat Clear Calc 83.09, Est GFR (MDRD) Af Amer 110, Est GFR (MDRD) Non-Af 91, BUN/Creatinine Ratio 40.4 H, Glucose 111 H, Calcium 8.6 Current Medications Acetaminophen (Tylenol) 650 mg PO Q6H PRN PRN PRN Reason: Mild Pain (scale 0-3)/T>100.7 Last Admin: 12/08/18 06:53 Dose: 650 mg Apixaban (Eliquis) 5 mg PO BID [facility] Last Admin: 12/08/18 07:44 Dose: 5 mg Ascorbic Acid (Vitamin C) 1,500 mg PO DAILY [facility] Last Admin: 12/08/18 07:45 Dose: 1,500 mg Atorvastatin Calcium (Lipitor) 20 mg PO QHS [facility] Last Admin: 12/07/18 22:16 Dose: 20 mg Baclofen (Lioresal) 10 mg PO TID [facility] Last Admin: 12/08/18 06:53 Dose: 10 mg Bisacodyl (Dulcolax) 10 mg RECTAL DAILY PRN PRN PRN Reason: Constipation Diltiazem HCl (Cardizem Cd) 240 mg PO DAILY [facility] Last Admin: 12/08/18 07:44 Dose: 240 mg Ergocalciferol (Vitamin D) 50,000 unit PO LUDWIG [facility] Fluoxetine HCl (Prozac) 40 mg PO DAILY [facility] Last Admin: 12/08/18 07:44 Dose: 40 mg Furosemide (Lasix) 40 mg PO BIDLX [facility] Last Admin: 12/08/18 07:44 Dose: 40 mg Gabapentin (Neurontin) 600 mg PO BID [facility] Last Admin: 12/08/18 07:45 Dose: 600 mg Lamotrigine (Lamictal) 100 mg PO QHS [facility] Last Admin: 12/07/18 22:16 Dose: 100 mg Magnesium Hydroxide (Milk Of Magnesia) 30 ml PO .PRN X 1 PRN PRN Reason: Constipation Metoprolol Tartrate (Lopressor (Beta Danielle)) 75 mg PO BID [facility] Last Admin: 12/08/18 07:44 Dose: 75 mg Oxybutynin Chloride (Ditropan) 10 mg PO BID [facility] Last Admin: 12/08/18 07:44 Dose: 10 mg Oxycodone HCl (Oxyir) 5 mg PO Q4H PRN PRN PRN Reason: SEVERE PAIN (6-10/10) Polyethylene Glycol (Miralax) 17 gm PO DAILY [facility] Last Admin: 12/08/18 07:45 Dose: 17 gm Potassium [facility] ([facility]Dur) [facility] Last Admin: 12/08/18 06:52 Dose: 40 meq Senna/Docusate Sodium (Senokot-S, Sena-Colace) 2 tablet PO BID [facility] Last Admin: 12/08/18 07:45 Dose: 2 tablet Trazodone HCl (Desyrel) 100 mg PO QHS [facility] Last Admin: 12/07/18 22:17 Dose: 100 mg Zolpidem Tartrate (Ambien (Generic)) 5 mg PO QHS PRN PRN PRN Reason: INSOMNIA Medical Necessity - Tobacco Use Smoking Status: Former smoker Assessment/Plan All Active Problems (Last Updated 04/29/18 @ 15:18 by Cee Mcnulty DO) Acute fall (Acute) Fracture of femur, distal, left, closed (Acute) Debility (Acute) Acute exacerbation of chronic obstructive pulmonary disease (COPD) (Resolved) Parainfluenza virus bronchopneumonia (Resolved) History of MRSA infection (Resolved) Non-healing wound of lower extremity (Acute) Allergic reaction due to correct medicinal substance properly administered (Resolved) Atrial fibrillation with RVR (Resolved) CAP (community acquired pneumonia) (Resolved) Cellulitis of lower leg (Resolved) Influenza B (Resolved) Laceration of head (Resolved) Metabolic alkalosis (Resolved) Pneumonia (Resolved) Syncope and collapse (Resolved) Patient is a 63-year-old lady who slipped on ice injuring her left knee imaging studies obtained on admission demonstrated Comminuted and dorsally angulated fracture of the distal femur, involving the total knee arthroplasty. Admitted to regular nursing floor with consultation placed to orthopedic surgery patient underwent surgical intervention on 12/04/2018 patient was transferred to the inpatient rehab unit once her medical condition stabilized. 1. Acute comminuted, displaced, closed fracture of the distal femoral diaphysis, proximal to the femoral prosthesis secondary to fall. Patient underwent Revision left total knee replacement entire femoral and tibial component on 12/04/[address] Jenkins transferred to the inpatient rehab unit once her medical condition stabilized 2. Paroxysmal atrial fibrillation rate controlled on systemic anticoagulation with Eliquis resumed on 12/05/2017 3. Anemia secondary to acute blood loss anemia following surgery monitoring H&H with plans to transfuse if hemoglobin falls below 7 or patient becomes symptomatic 4. COPD without acute exacerbation did continue patient home regimen 5. Obstructive sleep apnea 6. Morbid obesity with BMI of 41.6 7. Hypertension-blood pressure controlled, home medications continued with dose adjustment as needed 8. Depression with anxiety 9. Chronic alcoholic cirrhosis stable 10. DVT prophylaxis on Eliquis Code Visit Inpatient E&M: 17558 Subs Hosp L3
[2018-12-08 14:13] VITALS: BP 100/50; PULSE 72; RESP 18; O2SAT 95
[2018-12-08 19:51] VITALS: BP 131/75; PULSE 80; RESP 16; TEMP 36.8; O2SAT 94
[2018-12-08] MEDS: Magnesium Hydroxide 30 ML UDC PO (19:58)
[2018-12-08 19:59] VITALS: BP 131/75; PULSE 80
[2018-12-08] MEDS: Atorvastatin Calcium 20 MG Tablet PO (19:59)
[2018-12-08] MEDS: traZODone 100 MG Tablet PO (20:00)
[2018-12-08] MEDS: lamoTRIgine 100 MG Tablet PO (20:00)
[2018-12-09] MEDS: Bisacodyl 10 MG Suppository RECTAL (01:56)
[2018-12-09] MEDS: oxyCODONE 5 MG Tablet PO ×2 (01:56→07:00)
[2018-12-09] MEDS: Baclofen 10 MG Tablet PO (07:01)
[2018-12-09 07:25] VITALS: O2SAT 95
[2018-12-09 08:06] VITALS: BP 119/83; PULSE 73; RESP 12; TEMP 36.9; O2SAT 95
[2018-12-09] MEDS: Ascorbic Acid 500 MG Tablet 1500 MG PO (08:56)
[2018-12-09] MEDS: APIXABAN 5 MG TABLET PO ×2 (08:58→20:06)
[2018-12-09 08:59] VITALS: PULSE 73
[2018-12-09] MEDS: Metoprolol Tartrate 25 MG Tablet 75 MG PO ×2 (08:59→20:07)
[2018-12-09] MEDS: FLUoxetine 20 MG Capsule 40 MG PO (08:59)
[2018-12-09] MEDS: Oxybutynin 5 MG Tablet 10 MG PO ×2 (09:00→20:06)
[2018-12-09] MEDS: Furosemide 40 MG Tablet PO ×2 (09:00→18:24)
[2018-12-09] MEDS: Gabapentin 600 MG Tablet PO ×2 (09:00→20:07)
[2018-12-09] MEDS: dilTIAZem CD 240 MG Capsule PO (09:01)
--- NOTE | 2018-12-09 10:48 | PN.NEURO_ITS ---
Patient Problems: Active and Suspected Problems (Last Updated 04/29/18 @ 15:18 by Cee Mcnulty DO) Debility (Acute) Subjective: No issues overnight. Care discussed with nursing staff. Per nursing staff and PT/OT patient probably is more sleepy. Patient is on multiple medications like baclofen 10 mg p.o. 3 times daily (per patient started by Dr. Harris about a month ago for muscle spasms?but it has not helped with any symptoms). Also is on trazodone 100 mg p.o. nightly. Yesterday (12/08/2018) was started on OxyIR for pain, which patient had tolerated without any side effects. Per OT patient patient also has some occasional involuntary movements of the arms. At present patient is alert and oriented does not have any involuntary movement on bedside examination. Will decrease the baclofen to 5 mg p.o. 3 times daily and discontinue the trazodone, will decrease OxyIR 1 tablet as needed to every 6 hourly as needed. During the inpatient admission for total knee revision patient was on doxycycline (reasons not clear for the same), but the same was not written by the orthopedics team to be continued on discharge. Will call Dr. Jenkins's office for further clarification of doxycycline and for further dressing management of the total knee revision. - Physical Exam General: Alert HEENT: Normocephalic Neck: Supple Lungs: Clear to auscultation Cardiovascular: Normal S1, Normal S2 Abdomen: Bowel Sounds Present Extremities: No cyanosis Neurological: Cranial nerves II-XII grossly intact, Deep Tendon Reflexes 2+/4 and Symmetrical, Neuro grossly intact, Motor Exam 5/5 strength throughout, Muscle tone normal, Sensory exam intact to light touch and pain, Coordination normal Psych/Mental Status: Normal Affect Vital Signs Temp Pulse Resp BP Pulse Ox 98.4 F 73 12 119/83 H 95 12/09/18 08:06 12/09/18 08:59 12/09/18 08:06 12/09/18 08:06 12/09/18 08:06 Oxygen Delivery Method Room Air Weight: 123.37 kg Body Mass Index (BMI) 41.3 Intake and Output for Last 24 Hours 12/07/18 12/08/18 12/09/18 23:59 23:59 23:59 Intake Total 1080 / 1080 Output Total 300 / 300 500 / 500 Balance -300 / -300 580 / 580 Medical Necessity - Tobacco Use Smoking Status: Former smoker Assessment/Plan All Active Problems (Last Updated 04/29/18 @ 15:18 by Cee Mcnulty DO) Acute fall (Acute) Fracture of femur, distal, left, closed (Acute) Debility (Acute) Acute exacerbation of chronic obstructive pulmonary disease (COPD) (Resolved) Parainfluenza virus bronchopneumonia (Resolved) History of MRSA infection (Resolved) Non-healing wound of lower extremity (Acute) Allergic reaction due to correct medicinal substance properly administered (Resolved) Atrial fibrillation with RVR (Resolved) CAP (community acquired pneumonia) (Resolved) Cellulitis of lower leg (Resolved) Influenza B (Resolved) Laceration of head (Resolved) Metabolic alkalosis (Resolved) Pneumonia (Resolved) Syncope and collapse (Resolved) The patient is a 63 year old F with PMH HTN, Afib on Eliquis, LUIS, morbid obesity, COPD, GERD, chronic non healing ulcer bilateral LE, Lumbar spondylosis with lumbar radiculopathy and degenerative disc disease, depression/anxiety admitted to [facility] on 12/07/18 with debility s/p fall and left distal femur closed fracture s/p revision total left knee replacement done by Dr. Jenkins on 12/04/18, for >3 hrs therapy daily with a goal of returning back home at or near her prior level of functional independence. Per patient she fell on ice on 12/03/18, had femur fracture, per patient she hit her back of the head also, but denies any LOC, had some double vision since but has improved, denies any MARINO. Lives with her BF and brother in an apartment, has 2 steps to go into the house, does not use cane or walker at baseline, denies any frequent falls, does drive and does not need any assistance for her ADLs at baseline. Per patient she has chronic low back pain, does go to pain management for the same. Has occasional radicular symptoms but denies the same at present. Plan -PT for gait stability and balance -OT for ADLs -Analgesics PRN -Bowel protocol -Left distal closed femur fracture s/p revision total left knee replacement- further management per orthopedic Dr. Jenkins's recommendation. Call Dr. Jenkins's office for further recommendations doxycycline which was given to the patient as an inpatient but not written on the discharge summary. Also need further recommendations about dressing for the left knee. WBCs 12.1 on admission. will repeat and monitor. ?Muscle spasms?patient was started on baclofen 10 mg p.o. [address] Harris about a month ago. Per patient baclofen has not helped much. Will decrease baclofen to 5 mg p.o. 3 times daily. ?We will discontinue trazodone as PT/OT thinks patient is too sleepy at times. -HTN-on Lasix, Metoprolol and Diltiazem. BP controlled -HLD- on atorvastatin -Afib-On Eliquis 5mg PO BID. Rate controlled. -Chronic low back pain- on gabapentin 600 mg PO BID and Baclofen -Anxiety/mood d/o- on Prozac and Lamictal 100 mg PO q hs. -Urinary disturbances- on Ditropan -GI/DVT prophylaxis- ON Eliquis -Fall precautions -Further medical management per hospitalist recommendation. Hospitalist consult -Follow with PCP, Orthopedic surgeon Dr. Jenkins, and Cardiology as outpatient after discharge.
[2018-12-09 11:35] VITALS: BP 108/68; PULSE 78; RESP 17; O2SAT 96
[2018-12-09] MEDS: Baclofen 10 MG Tablet 5 MG PO ×2 (14:52→20:06)
[2018-12-09] MEDS: Acetaminophen 325 MG Tablet 650 MG PO (18:24)
[2018-12-09] MEDS: lamoTRIgine 100 MG Tablet PO (20:06)
[2018-12-09 20:07] VITALS: PULSE 66
[2018-12-09] MEDS: Atorvastatin Calcium 20 MG Tablet PO (20:07)
--- NOTE | 2018-12-09 21:30 | NURSING ---
upon removing immobilizer for the first time per physician's order, pt stated the back of left leg was tender. upon removing TRI wraps per order to remove dressing, this nurse noted an open area to the left posterior proximal calf. open area was measured at 1 cm by 1 cm. area noted to have slough and red granulation tissue. skin around open area noted to be pink in color. area cleansed with sterile water, patted dry, adaptic placed over open area. area then wrapped with gauze wrap. a consult to Daisha wound nurse, was ordered. will continue to monitor.
[2018-12-09 22:00] VITALS: BP 106/68; PULSE 66; RESP 18; TEMP 36.8; O2SAT 96
[2018-12-09] MEDS: Doxycycline 100 MG CAPSULE PO (23:01)
--- NOTE | 2018-12-10 03:56 | NURSING ---
Reviewed and agree with CLIENT SERVICE COORDINATOR documentation and FIMS charting.
[2018-12-10] MEDS: Baclofen 10 MG Tablet 5 MG PO ×3 (05:41→19:54)
[2018-12-10] MEDS: Acetaminophen 325 MG Tablet 650 MG PO ×2 (05:41→14:20)
[2018-12-10 06:04] LABS: White Blood Count 9.1 K/mm3 (4.4-11.0)
[2018-12-10 07:00] VITALS: PULSE 80; RESP 18; TEMP 36.7; O2SAT 98
--- NOTE | 2018-12-10 07:31 | NURSING ---
2130 12/09/2018 HEEL SLUGGER called this RN to view a wound discovered upon removal of immobilizer for the first time per doctors order. Order for immobilizer to be in place for 2 weeks. Open wound found at proximal calf. Wound cleansed with sterile water, covered with Adaptic, gauze wrap wrapped around calf. Wound nurse consult. Will continue to monitor.
[2018-12-10 09:05] VITALS: BP 105/72; PULSE 72; RESP 18; O2SAT 90
[2018-12-10] MEDS: Ascorbic Acid 500 MG Tablet 1500 MG PO (09:08)
[2018-12-10] MEDS: FLUoxetine 20 MG Capsule 40 MG PO (09:08)
[2018-12-10 09:09] VITALS: BP 105/72; PULSE 72
[2018-12-10] MEDS: Furosemide 40 MG Tablet PO ×2 (09:09→16:43)
[2018-12-10] MEDS: dilTIAZem CD 240 MG Capsule PO (09:09)
[2018-12-10] MEDS: Metoprolol Tartrate 25 MG Tablet 75 MG PO ×2 (09:09→19:54)
[2018-12-10] MEDS: Doxycycline 100 MG CAPSULE PO ×2 (09:09→19:53)
[2018-12-10] MEDS: Oxybutynin 5 MG Tablet 10 MG PO ×2 (09:09→19:53)
[2018-12-10] MEDS: Gabapentin 600 MG Tablet PO ×2 (09:09→19:55)
[2018-12-10] MEDS: APIXABAN 5 MG TABLET PO ×2 (09:10→19:54)
[2018-12-10] MEDS: Polyethylene Glycol 3350 17 GM PACKET PO (09:10)
[2018-12-10] MEDS: HYDROcodone Bitartrate/Apap 5/325 Tablet PO (11:32)
--- NOTE | 2018-12-10 12:23 | PN.NEURO_ITS ---
Patient Problems: Active and Suspected Problems (Last Updated 04/29/18 @ 15:18 by Cee Mcnulty DO) Debility (Acute) Subjective: No issues overnight. Care discussed with the nursing staff. Per orthopedic surgery patient to be continued on doxycycline 100 mg p.o. twice daily for a total of 14 days. WBC count has normalized to 9.1. Per nursing staff there is a quarter size open wound at the posterior proximal calf on the left leg when the immobilizer was removed yesterday on 12/09/2018, wound consult placed. Per orthopedic recommendations the immobilizer was not to be removed until 12/09/2018. - Physical Exam General: Alert HEENT: Normocephalic Neck: Supple Lungs: Normal air movement Cardiovascular: Normal S1, Normal S2 Abdomen: Bowel Sounds Present Extremities: No cyanosis Neurological: Cranial nerves II-XII grossly intact, Deep Tendon Reflexes 2+/4 and Symmetrical, Neuro grossly intact, Motor Exam 5/5 strength throughout, Muscle tone normal, Sensory exam intact to light touch and pain, Coordination normal Psych/Mental Status: Normal Affect Vital Signs Temp Pulse Resp BP Pulse Ox 98.0 F 72 18 105/72 90 12/10/18 07:00 12/10/18 09:09 12/10/18 09:05 12/10/18 09:09 12/10/18 09:05 Oxygen Flow Rate (L/min) 2 Oxygen Delivery Method Nasal Cannula Weight: 123.37 kg Body Mass Index (BMI) 41.3 Intake and Output for Last 24 Hours 12/08/18 12/09/18 12/10/18 23:59 23:59 23:59 Intake Total 1080 / 1080 Output Total 500 / 500 200 / 200 Balance 580 / 580 -200 / -200 Laboratory Tests Past 24 Hrs 12/10/18 05:35 WBC 9.1 Medical Necessity - Tobacco Use Smoking Status: Former smoker Assessment/Plan All Active Problems (Last Updated 04/29/18 @ 15:18 by Cee Mcnulty DO) Acute fall (Acute) Fracture of femur, distal, left, closed (Acute) Debility (Acute) Acute exacerbation of chronic obstructive pulmonary disease (COPD) (Resolved) Parainfluenza virus bronchopneumonia (Resolved) History of MRSA infection (Resolved) Non-healing wound of lower extremity (Acute) Allergic reaction due to correct medicinal substance properly administered ( Resolved) Atrial fibrillation with RVR (Resolved) CAP (community acquired pneumonia) (Resolved) Cellulitis of lower leg (Resolved) Influenza B (Resolved) Laceration of head (Resolved) Metabolic alkalosis (Resolved) Pneumonia (Resolved) Syncope and collapse (Resolved) The patient is a 63 year old F with PMH HTN, Afib on Eliquis, LUIS, morbid obesity, COPD, GERD, chronic non healing ulcer bilateral LE, Lumbar spondylosis with lumbar radiculopathy and degenerative disc disease, depression/anxiety admitted to [facility] on 12/07/18 with debility s/p fall and left distal femur closed fracture s/p revision total left knee replacement done by Dr. Jenkins on 12/04/18, for >3 hrs therapy daily with a goal of returning back home at or near her prior level of functional independence. Per patient she fell on ice on 12/03/18, had femur fracture, per patient she hit her back of the head also, but denies any LOC, had some double vision since but has improved, denies any MARINO. Lives with her BF and brother in an apartment, has 2 steps to go into the house, does not use cane or walker at baseline, denies any frequent falls, does drive and does not need any assistance for her ADLs at baseline. Per patient she has chronic low back pain, does go to pain management for the same. Has occasional radicular symptoms but denies the same at present. Plan -PT for gait stability and balance -OT for ADLs -Analgesics PRN -Bowel protocol -Left distal closed femur fracture s/p revision total left knee replacement- further management per orthopedic Dr. Jenkins's recommendation. Per Dr. Jenkins's further recommendation doxycycline was restarted and it is to be given for 14 days. WBCs 9.1. ?Muscle spasms?patient was started on baclofen 10 mg p.o. [address] Harris about a month ago. Per patient baclofen has not helped much. decreased to baclofen to 5 mg p.o. 3 times daily. ?We will discontinue trazodone as PT/OT thinks patient is too sleepy at times. -HTN-on Lasix, Metoprolol and Diltiazem. BP controlled -HLD- on atorvastatin -Afib-On Eliquis 5mg PO BID. Rate controlled. -Chronic low back pain- on gabapentin 600 mg PO BID and Baclofen -Anxiety/mood d/o- on Prozac and Lamictal 100 mg PO q hs. -Urinary disturbances- on Ditropan -GI/DVT prophylaxis- ON Eliquis -Fall precautions -Further medical management per hospitalist recommendation. Hospitalist consult -Follow with PCP, Orthopedic surgeon Dr. Jenkins, and Cardiology as outpatient after discharge.
--- NOTE | 2018-12-10 13:03 | PN_ITS ---
Patient Problems: Active and Suspected Problems (Last Updated 04/29/18 @ 15:18 by Cee Mcnulty DO) Debility (Acute) Subjective: Patient seen complains of headache. An order was given for Tylenol 650 every 6 as needed Objective: GENERAL: cooperative HEENT: Atraumatic; moist oral mucosa EYES; Anicteric, Normal Conjunctiva NECK; supple, normal thyroid, no distended JVD. RESPIRATORY: Diminished to auscultation bilaterally, CARDIOVASCULAR: Regular S1 S2, no audible murmurs GI: soft, non-tender, normoactive bowel sounds, : No Renal angle tenderness; EXTREMITIES: No edema, no clubbing, no cyanosis. MUSCULOSKELETAL: left Knee surgical dressing NEURO: Awake; no lateralizing signs. SKIN: No Rash PSYCH; Normal affect Vitals/I&O's: Vital Signs Temp Pulse Resp BP Pulse Ox 98.0 F 72 18 105/72 90 12/10/18 07:00 12/10/18 09:09 12/10/18 09:05 12/10/18 09:09 12/10/18 09:05 Oxygen Flow Rate (L/min) 2 Oxygen Delivery Method Nasal Cannula Weight: 123.37 kg Body Mass Index (BMI) 41.3 Intake and Output for Last 24 Hours 12/08/18 12/09/18 12/10/18 23:59 23:59 23:59 Intake Total 1080 / 1080 Output Total 500 / 500 200 / 200 Balance 580 / 580 -200 / -200 Laboratory Results 12/10/18 05:35: WBC 9.1 Current Medications Acetaminophen (Tylenol) 650 mg PO Q6H PRN PRN PRN Reason: Mild Pain (scale 0-3)/T>100.7 Last Admin: 12/10/18 05:41 Dose: 650 mg Hydrocodone Bitart/Acetaminophen ([place] 5mg-325mg) 1 tablet PO Q6H PRN PRN PRN Reason: SEVERE PAIN (6-10/10) Last Admin: 12/10/18 11:32 Dose: 1 tablet Apixaban (Eliquis) 5 mg PO BID [facility] Last Admin: 12/10/18 09:10 Dose: 5 mg Ascorbic Acid (Vitamin C) 1,500 mg PO DAILY [facility] Last Admin: 12/10/18 09:08 Dose: 1,500 mg Atorvastatin Calcium (Lipitor) 20 mg PO QHS [facility] Last Admin: 12/09/18 20:07 Dose: 20 mg Baclofen (Lioresal) 5 mg PO TID [facility] Last Admin: 12/10/18 05:41 Dose: 5 mg Bisacodyl (Dulcolax) 10 mg RECTAL DAILY PRN PRN PRN Reason: Constipation Last Admin: 12/09/18 01:56 Dose: 10 mg Calamine/Phenol (Calmoseptine Ointment) 1 applic TOPICAL BID@0600,2200 [facility]; Protocol Diltiazem HCl (Cardizem Cd) 240 mg PO DAILY [facility] Last Admin: 12/10/18 09:09 Dose: 240 mg Doxycycline Monohydrate (Doxycycline) 100 mg PO BID [facility] Stop: 12/14/18 22:01 Last Admin: 12/10/18 09:09 Dose: 100 mg Ergocalciferol (Vitamin D) 50,000 unit PO LUDWIG [facility] Fluoxetine HCl (Prozac) 40 mg PO DAILY [facility] Last Admin: 12/10/18 09:08 Dose: 40 mg Furosemide (Lasix) 40 mg PO BIDLX [facility] Last Admin: 12/10/18 09:09 Dose: 40 mg Gabapentin (Neurontin) 600 mg PO BID [facility] Last Admin: 12/10/18 09:09 Dose: 600 mg Lamotrigine (Lamictal) 100 mg PO QHS [facility] Last Admin: 12/09/18 20:06 Dose: 100 mg Magnesium Hydroxide (Milk Of Magnesia) 30 ml PO .PRN X 1 PRN PRN Reason: Constipation Last Admin: 12/08/18 19:58 Dose: 30 ml Metoprolol Tartrate (Lopressor (Beta Danielle)) 75 mg PO BID [facility] Last Admin: 12/10/18 09:09 Dose: 75 mg Oxybutynin Chloride (Ditropan) 10 mg PO BID [facility] Last Admin: 12/10/18 09:09 Dose: 10 mg Polyethylene Glycol (Miralax) 17 gm PO DAILY [facility] Last Admin: 12/10/18 09:10 Dose: 17 gm [facility] Last Admin: 12/10/18 09:09 Dose: 40 meq Senna/Docusate Sodium (Senokot-S, Sena-Colace) 2 tablet PO BID [facility] Last Admin: 12/10/18 09:10 Dose: Not Given Zolpidem Tartrate (Ambien (Generic)) 5 mg PO QHS PRN PRN PRN Reason: INSOMNIA Medical Necessity - Tobacco Use Smoking Status: Former smoker Assessment/Plan All Active Problems (Last Updated 04/29/18 @ 15:18 by Cee Mcnulty DO) Acute fall (Acute) Fracture of femur, distal, left, closed (Acute) Debility (Acute) Acute exacerbation of chronic obstructive pulmonary disease (COPD) (Resolved) Parainfluenza virus bronchopneumonia (Resolved) History of MRSA infection (Resolved) Non-healing wound of lower extremity (Acute) Allergic reaction due to correct medicinal substance properly administered (Resolved) Atrial fibrillation with RVR (Resolved) CAP (community acquired pneumonia) (Resolved) Cellulitis of lower leg (Resolved) Influenza B (Resolved) Laceration of head (Resolved) Metabolic alkalosis (Resolved) Pneumonia (Resolved) Syncope and collapse (Resolved) Patient is a 63-year-old lady who slipped on ice injuring her left knee imaging studies obtained on admission demonstrated Comminuted and dorsally angulated fracture of the distal femur, involving the total knee arthroplasty. Admitted to regular nursing floor with consultation placed to orthopedic surgery patient underwent surgical intervention on 12/04/2018 patient was transferred to the inpatient rehab unit once her medical condition stabilized. 1. Acute comminuted, displaced, closed fracture of the distal femoral diaphysis, proximal to the femoral prosthesis secondary to fall. Patient underwent Revision left total knee replacement entire femoral and tibial component on 12/04/[address] Jenkins transferred to the inpatient rehab unit once her medical condition stabilized 2. Paroxysmal atrial fibrillation rate controlled on systemic anticoagulation with Eliquis resumed on 12/05/2017 3. Anemia secondary to acute blood loss anemia following surgery monitoring H&H with plans to transfuse if hemoglobin falls below 7 or patient becomes symptomatic 4. COPD without acute exacerbation did continue patient home regimen 5. Obstructive sleep apnea 6. Morbid obesity with BMI of 41.6 7. Hypertension-blood pressure controlled, home medications continued with dose adjustment as needed 8. Depression with anxiety 9. Chronic alcoholic cirrhosis stable 10. DVT prophylaxis on Eliquis Code Visit Inpatient E&M: 84968 Subs Hosp L2
[2018-12-10 15:30] VITALS: O2SAT 95
--- NOTE | 2018-12-10 16:19 | NURSING ---
wound photo: Left posterior Calf
--- NOTE | 2018-12-10 16:20 | NURSING ---
wound photo: Flavia
[2018-12-10 19:54] VITALS: PULSE 82
[2018-12-10] MEDS: Atorvastatin Calcium 20 MG Tablet PO (19:54)
[2018-12-10] MEDS: lamoTRIgine 100 MG Tablet PO (19:54)
[2018-12-10] MEDS: Menthol/Lanolin/Calamine/Znox 113 GM Tube 1 APPLIC TOPICAL (20:03)
[2018-12-10 20:07] VITALS: BP 108/74; PULSE 82; RESP 16; TEMP 37.1; O2SAT 96
--- NOTE | 2018-12-10 23:43 | NURSING ---
Reviewed and agree with LPNs fims and handoff
[2018-12-11] MEDS: HYDROcodone Bitartrate/Apap 5/325 Tablet PO ×2 (01:07→17:57)
[2018-12-11] MEDS: Baclofen 10 MG Tablet 5 MG PO ×3 (06:41→22:02)
[2018-12-11] MEDS: Menthol/Lanolin/Calamine/Znox 113 GM Tube 1 APPLIC TOPICAL ×2 (06:49→22:08)
[2018-12-11 10:00] VITALS: BP 110/67; PULSE 81; RESP 16; TEMP 36.3; O2SAT 96
[2018-12-11] MEDS: Oxybutynin 5 MG Tablet 10 MG PO ×2 (10:27→22:01)
[2018-12-11] MEDS: Furosemide 40 MG Tablet PO ×2 (10:27→17:17)
[2018-12-11] MEDS: Doxycycline 100 MG CAPSULE PO ×2 (10:27→22:01)
[2018-12-11] MEDS: dilTIAZem CD 240 MG Capsule PO (10:27)
[2018-12-11] MEDS: APIXABAN 5 MG TABLET PO ×2 (10:27→22:02)
[2018-12-11 10:28] VITALS: PULSE 81
[2018-12-11] MEDS: Metoprolol Tartrate 25 MG Tablet 75 MG PO ×2 (10:28→22:05)
[2018-12-11] MEDS: Gabapentin 600 MG Tablet PO ×2 (10:28→22:05)
[2018-12-11] MEDS: Polyethylene Glycol 3350 17 GM PACKET PO (10:28)
[2018-12-11] MEDS: FLUoxetine 20 MG Capsule 40 MG PO (10:29)
[2018-12-11] MEDS: Ascorbic Acid 500 MG Tablet 1500 MG PO (10:30)
[2018-12-11] MEDS: Acetaminophen 325 MG Tablet 650 MG PO (10:54)
[2018-12-11 13:00] VITALS: O2SAT 98
[2018-12-11 22:00] VITALS: BP 113/70; PULSE 71; RESP 18; TEMP 36.7; O2SAT 96
[2018-12-11] MEDS: lamoTRIgine 100 MG Tablet PO (22:02)
[2018-12-11] MEDS: Atorvastatin Calcium 20 MG Tablet PO (22:02)
[2018-12-11 22:05] VITALS: PULSE 71
[2018-12-12] MEDS: HYDROcodone Bitartrate/Apap 5/325 Tablet PO ×2 (01:18→21:30)
--- NOTE | 2018-12-12 05:43 | NURSING ---
Reviewed and agree with LPNs fims and handoff
[2018-12-12] MEDS: Baclofen 10 MG Tablet 5 MG PO ×3 (05:47→21:32)
[2018-12-12] MEDS: Menthol/Lanolin/Calamine/Znox 113 GM Tube 1 APPLIC TOPICAL ×2 (05:48→21:32)
[2018-12-12 06:53] VITALS: O2SAT 95
[2018-12-12 07:47] VITALS: PULSE 64; RESP 18; TEMP 37; O2SAT 93
[2018-12-12] MEDS: Doxycycline 100 MG CAPSULE PO ×2 (08:48→21:32)
[2018-12-12] MEDS: APIXABAN 5 MG TABLET PO ×2 (08:48→21:32)
[2018-12-12] MEDS: Oxybutynin 5 MG Tablet 10 MG PO ×2 (08:48→21:32)
[2018-12-12] MEDS: Polyethylene Glycol 3350 17 GM PACKET PO (08:48)
[2018-12-12] MEDS: Ascorbic Acid 500 MG Tablet 1500 MG PO (08:49)
[2018-12-12] MEDS: Gabapentin 600 MG Tablet PO ×2 (08:49→21:32)
[2018-12-12] MEDS: FLUoxetine 20 MG Capsule 40 MG PO (08:49)
[2018-12-12] MEDS: Senna/Docusate Sodium 1 Tablet 2 TABLET PO ×2 (08:53→21:31)
--- NOTE | 2018-12-12 09:37 | PN_ITS ---
Patient Problems: Active and Suspected Problems (Last Updated 04/29/18 @ 15:18 by Cee Mcnulty DO) Debility (Acute) Subjective: Patient seen still complains of significant discomfort in the left lower extremity otherwise tolerating PT well Objective: GENERAL: cooperative HEENT: Atraumatic; moist oral mucosa EYES; Anicteric, Normal Conjunctiva NECK; supple, normal thyroid, no distended JVD. RESPIRATORY: Diminished to auscultation bilaterally, CARDIOVASCULAR: Regular S1 S2, no audible murmurs GI: soft, non-tender, normoactive bowel sounds, : No Renal angle tenderness; EXTREMITIES: No edema, no clubbing, no cyanosis. MUSCULOSKELETAL: left Knee surgical dressing NEURO: Awake; no lateralizing signs. SKIN: No Rash PSYCH; Normal affect Vitals/I&O's: Vital Signs Temp Pulse Resp BP Pulse Ox 98.6 F 64 18 113/70 93 12/12/18 07:47 12/12/18 07:47 12/12/18 07:47 12/11/18 22:00 12/12/18 07:47 Oxygen Flow Rate (L/min) 2 Oxygen Delivery Method Room Air Weight: 123.37 kg Body Mass Index (BMI) 41.3 Intake and Output for Last 24 Hours 12/10/18 12/11/18 12/12/18 23:59 23:59 23:59 Intake Total 240 / 240 Balance 240 / 240 Current Medications Acetaminophen (Tylenol) 650 mg PO Q6H PRN PRN PRN Reason: Mild Pain (scale 0-3)/T>100.7 Last Admin: 12/11/18 10:54 Dose: 650 mg Hydrocodone Bitart/Acetaminophen ([place] 5mg-325mg) 1 tablet PO Q6H PRN PRN PRN Reason: SEVERE PAIN (6-10/10) Last Admin: 12/12/18 01:18 Dose: 1 tablet Apixaban (Eliquis) 5 mg PO BID [facility] Last Admin: 12/12/18 08:48 Dose: 5 mg Ascorbic Acid (Vitamin C) 1,500 mg PO DAILY [facility] Last Admin: 12/12/18 08:49 Dose: 1,500 mg Atorvastatin Calcium (Lipitor) 20 mg PO QHS [facility] Last Admin: 12/11/18 22:02 Dose: 20 mg Baclofen (Lioresal) 5 mg PO TID [facility] Last Admin: 12/12/18 05:47 Dose: 5 mg Bisacodyl (Dulcolax) 10 mg RECTAL DAILY PRN PRN PRN Reason: Constipation Last Admin: 12/09/18 01:56 Dose: 10 mg Calamine/Phenol (Calmoseptine Ointment) 1 applic TOPICAL BID@0600,2200 [facility]; Protocol Last Admin: 12/12/18 05:48 Dose: 1 applicatio Diltiazem HCl (Cardizem Cd) 240 mg PO DAILY [facility] Last Admin: 12/11/18 10:27 Dose: 240 mg Doxycycline Monohydrate (Doxycycline) 100 mg PO BID [facility] Stop: 12/14/18 22:01 Last Admin: 12/12/18 08:48 Dose: 100 mg Ergocalciferol (Vitamin D) 50,000 unit PO LUDWIG [facility] Last Admin: 12/12/18 08:49 Dose: 50,000 unit Fluoxetine HCl (Prozac) 40 mg PO DAILY [facility] Last Admin: 12/12/18 08:49 Dose: 40 mg Furosemide (Lasix) 40 mg PO BIDLX [facility] Last Admin: 12/11/18 17:17 Dose: 40 mg Gabapentin (Neurontin) 600 mg PO BID [facility] Last Admin: 12/12/18 08:49 Dose: 600 mg Lamotrigine (Lamictal) 100 mg PO QHS [facility] Last Admin: 12/11/18 22:02 Dose: 100 mg Magnesium Hydroxide (Milk Of Magnesia) 30 ml PO .PRN X 1 PRN PRN Reason: Constipation Last Admin: 12/08/18 19:58 Dose: 30 ml Metoprolol Tartrate (Lopressor (Beta Danielle)) 75 mg PO BID [facility] Last Admin: 12/11/18 22:05 Dose: 75 mg Oxybutynin Chloride (Ditropan) 10 mg PO BID [facility] Last Admin: 12/12/18 08:48 Dose: 10 mg Polyethylene Glycol (Miralax) 17 gm PO DAILY [facility] Last Admin: 12/12/18 08:48 Dose: 17 gm Potassium Chloride (K-Dur) 40 meq PO BIDCM [facility] Last Admin: 12/12/18 08:47 Dose: 40 meq Senna/Docusate Sodium (Senokot-S, Sena-Colace) 2 tablet PO BID [facility] Last Admin: 12/12/18 08:53 Dose: 2 tablet Zolpidem Tartrate (Ambien (Generic)) 5 mg PO QHS PRN PRN PRN Reason: INSOMNIA Medical Necessity - Tobacco Use Smoking Status: Former smoker Assessment/Plan All Active Problems (Last Updated 04/29/18 @ 15:18 by Cee Mcnulty DO) Acute fall (Acute) Fracture of femur, distal, left, closed (Acute) Debility (Acute) Acute exacerbation of chronic obstructive pulmonary disease (COPD) (Resolved) Parainfluenza virus bronchopneumonia (Resolved) History of MRSA infection (Resolved) Non-healing wound of lower extremity (Acute) Allergic reaction due to correct medicinal substance properly administered (Resolved) Atrial fibrillation with RVR (Resolved) CAP (community acquired pneumonia) (Resolved) Cellulitis of lower leg (Resolved) Influenza B (Resolved) Laceration of head (Resolved) Metabolic alkalosis (Resolved) Pneumonia (Resolved) Syncope and collapse (Resolved) Patient is a 63-year-old lady who slipped on ice injuring her left knee imaging studies obtained on admission demonstrated Comminuted and dorsally angulated fracture of the distal femur, involving the total knee arthroplasty. Admitted to regular nursing floor with consultation placed to orthopedic surgery patient underwent surgical intervention on 12/04/2018 patient was transferred to the inpatient rehab unit once her medical condition stabilized. 1. Acute comminuted, displaced, closed fracture of the distal femoral diaphysis, proximal to the femoral prosthesis secondary to fall. Patient underwent Revision left total knee replacement entire femoral and tibial component on 12/04/[address] Jenkins transferred to the inpatient rehab unit once her medical condition stabilized 2. Paroxysmal atrial fibrillation rate controlled on systemic anticoagulation with Eliquis resumed on 12/05/2017 3. Anemia secondary to acute blood loss anemia following surgery monitoring H&H with plans to transfuse if hemoglobin falls below 7 or patient becomes symptomatic 4. COPD without acute exacerbation did continue patient home regimen 5. Obstructive sleep apnea 6. Morbid obesity with BMI of 41.6 7. Hypertension-blood pressure controlled, home medications continued with dose adjustment as needed 8. Depression with anxiety 9. Chronic alcoholic cirrhosis stable 10. DVT prophylaxis on Eliquis Code Visit Inpatient E&M: 26765 Subs Hosp L2
[2018-12-12 11:14] VITALS: BP 89/62; PULSE 82; RESP 18; TEMP 37
[2018-12-12 11:42] VITALS: BP 89/62; PULSE 82
[2018-12-12] MEDS: Furosemide 40 MG Tablet PO (18:21)
[2018-12-12 21:25] VITALS: BP 122/80; PULSE 113; RESP 18; TEMP 36.7; O2SAT 97
[2018-12-12] MEDS: lamoTRIgine 100 MG Tablet PO (21:31)
[2018-12-12] MEDS: Atorvastatin Calcium 20 MG Tablet PO (21:32)
[2018-12-12 22:21] VITALS: BP 122/80; PULSE 113
[2018-12-12] MEDS: Metoprolol Tartrate 25 MG Tablet 75 MG PO (22:21)
[2018-12-13] VITALS (7 sets, daily range): BP systolic 100–110; BP diastolic 58–71; PULSE 71–78; RESP 16–17; TEMP 36.6–37; O2SAT 93–100
[2018-12-13] MEDS: HYDROcodone Bitartrate/Apap 5/325 Tablet PO ×3 (04:34→22:36)
[2018-12-13] MEDS: Baclofen 10 MG Tablet 5 MG PO ×3 (04:35→22:37)
[2018-12-13] MEDS: Menthol/Lanolin/Calamine/Znox 113 GM Tube 1 APPLIC TOPICAL ×2 (04:35→22:38)
--- NOTE | 2018-12-13 04:47 | NURSING ---
Reviewed and agree with LPNs fims and handoff
[2018-12-13] MEDS: Oxybutynin 5 MG Tablet 10 MG PO ×2 (08:01→22:36)
[2018-12-13] MEDS: Furosemide 40 MG Tablet PO ×2 (08:01→17:26)
[2018-12-13] MEDS: Gabapentin 600 MG Tablet PO ×2 (08:01→22:38)
[2018-12-13] MEDS: Doxycycline 100 MG CAPSULE PO ×2 (08:01→22:38)
[2018-12-13] MEDS: dilTIAZem CD 240 MG Capsule PO (08:01)
[2018-12-13] MEDS: FLUoxetine 20 MG Capsule 40 MG PO (08:02)
[2018-12-13] MEDS: Metoprolol Tartrate 25 MG Tablet 75 MG PO ×2 (08:02→22:37)
[2018-12-13] MEDS: APIXABAN 5 MG TABLET PO ×2 (08:03→22:37)
[2018-12-13] MEDS: Ascorbic Acid 500 MG Tablet 1500 MG PO (08:03)
--- NOTE | 2018-12-13 10:16 | CT_ITS ---
STUDY: CT BRAIN WITHOUT CONTRAST REASON FOR EXAM: Female, 63 years old. Dizziness. RADIATION DOSAGE (If Supplied By Facility): CTDIvol = ( 44.99 ) mGy, DLP = ( 812.98 ) mGycm TECHNIQUE: Transaxial CT imaging of the brain was performed without administration of intravenous contrast material. Individualized dose optimization techniques were used for this CT. COMPARISON: Comparison is made with prior study dated June 02, 2019. FINDINGS: Normal soft tissue structures. Normal calvarium. There is mild cerebral atrophy with widening of the extra-axial spaces and ventricular dilatation. There are areas of decreased attenuation within the white matter tracts of the supratentorial brain, consistent with microvascular disease changes. Normal basal ganglia and thalami. Normal brainstem. Normal cerebellum. There is no intracranial hemorrhage. There are no findings of an acute ischemic infarction. Densely calcified left vertebral artery. Normal visualized paranasal sinuses. CT/Brain/Head without Contrast IMPRESSION: Chronic involutional changes of the brain. Electronically Signed: Dwight Ledbetter MD at 13:58 EST , Service support ,
[2018-12-13] MEDS: Polyethylene Glycol 3350 17 GM PACKET PO (10:23)
[2018-12-13] MEDS: Senna/Docusate Sodium 1 Tablet 2 TABLET PO (10:24)
--- NOTE | 2018-12-13 11:50 | PN.NEURO_ITS ---
Patient Problems: Active and Suspected Problems (Last Updated 04/29/18 @ 15:18 by Cee Mcnulty DO) Debility (Acute) Subjective: No issues overnight. Care discussed with the nursing staff. Staffed in the team meeting today. All questions were answered. Further therapy details per PT/OT notes. Wound care consult note appreciated. - Physical Exam General: Alert HEENT: Normocephalic Neck: Supple Lungs: Normal air movement Cardiovascular: Normal S1, Normal S2 Abdomen: Bowel Sounds Present Extremities: No cyanosis Neurological: Cranial nerves II-XII grossly intact, Deep Tendon Reflexes 2+/4 and Symmetrical, Neuro grossly intact, Motor Exam 5/5 strength throughout, Muscle tone normal, Sensory exam intact to light touch and pain, Coordination normal Psych/Mental Status: Normal Affect Vital Signs Temp Pulse Resp BP Pulse Ox 97.8 F 71 17 110/62 100 12/13/18 10:30 12/13/18 10:30 12/13/18 08:00 12/13/18 08:00 12/13/18 10:30 Oxygen Flow Rate (L/min) 2 Oxygen Delivery Method Room Air Weight: 123.37 kg Body Mass Index (BMI) 41.3 Medical Necessity - Tobacco Use Smoking Status: Former smoker Assessment/Plan All Active Problems (Last Updated 04/29/18 @ 15:18 by Cee Mcnulty DO) Acute fall (Acute) Fracture of femur, distal, left, closed (Acute) Debility (Acute) Acute exacerbation of chronic obstructive pulmonary disease (COPD) (Resolved) Parainfluenza virus bronchopneumonia (Resolved) History of MRSA infection (Resolved) Non-healing wound of lower extremity (Acute) Allergic reaction due to correct medicinal substance properly administered (Resolved) Atrial fibrillation with RVR (Resolved) CAP (community acquired pneumonia) (Resolved) Cellulitis of lower leg (Resolved) Influenza B (Resolved) Laceration of head (Resolved) Metabolic alkalosis (Resolved) Pneumonia (Resolved) Syncope and collapse (Resolved) The patient is a 63 year old F with PMH HTN, Afib on Eliquis, LUIS, morbid obesit y, COPD, GERD, chronic non healing ulcer bilateral LE, Lumbar spondylosis with lumbar radiculopathy and degenerative disc disease, depression/anxiety admitted to [facility] on 12/07/18 with debility s/p fall and left distal femur closed fracture s/p revision total left knee replacement done by Dr. Jenkins on 12/04/18, for >3 hrs therapy daily with a goal of returning back home at or near her prior level of functional independence. Per patient she fell on ice on 12/03/18, had femur fracture, per patient she hit her back of the head also, but denies any LOC, had some double vision since but has improved, denies any MARINO. Lives with her BF and brother in an apartment, has 2 steps to go into the house, does not use cane or walker at baseline, denies any frequent falls, does drive and does not need any assistance for her ADLs at baseline. Per patient she has chronic low back pain, does go to pain management for the same. Has occasional radicular symptoms but denies the same at present. Plan -PT for gait stability and balance -OT for ADLs -Analgesics PRN -Bowel protocol -Left distal closed femur fracture s/p revision total left knee replacement- further postsurgical management per orthopedic Dr. Jenkins's recommendation. Per Dr. Jenkins's further recommendation doxycycline was restarted and it is to be given for 14 days. WBCs 9.1 (12/10/2018). -Orthostatic vitals were positive- maintain hydration, compression stockings as needed. -Dizziness and light headedness per PT/OT after patient walks a few steps- probably orthostatic but will re-check CT head w/o contrast as she had hit the back of the head when she fell on 12/01/18 per patient. Per patient she does not want to get MRI brain due to claustrophobia. will do CT head for possible post- concussion syndrome. ?Muscle spasms?patient was started on baclofen 10 mg p.o. [address] Harris about a month ago. Per patient baclofen has not helped much. decreased to baclofen to 5 mg p.o. 3 times daily. ?We will discontinue trazodone as PT/OT thinks patient is too sleepy at times. Stopping trazodone has helped. -HTN-on Lasix, Metoprolol and Diltiazem. BP controlled -HLD- on atorvastatin -Afib-On Eliquis 5mg PO BID. Rate controlled. -Chronic low back pain- on gabapentin 600 mg PO BID and Baclofen -Anxiety/mood d/o- on Prozac and Lamictal 100 mg PO q hs. -Urinary disturbances- on Ditropan -GI/DVT prophylaxis- ON Eliquis -Fall precautions -Further medical management per hospitalist recommendation. Hospitalist consult -Follow with PCP, Orthopedic surgeon Dr. Jenkins, and Cardiology as outpatient after discharge.
--- NOTE | 2018-12-13 12:52 | CASEMGMT ---
Team meeting held. Patient present, no support person present. Patient with an insurance update due on 12/21/18 and aware that continued stay approval is not guaranteed. Patient plans to discharge to home with significant other and brother at time of discharge. Plan is to re-team patient next week. Support given. Will continue to follow. Waldemar JENSEN MSW
--- NOTE | 2018-12-13 14:15 | NURSING ---
This nurse received order via Dr. Jenkins's nurse Vicky. If patient can come to office on Thursday, we are to make an appt and if not, we are able to take xrays here at the hospital and nursing here is able to take out sutures/donald.
[2018-12-13] MEDS: Atorvastatin Calcium 20 MG Tablet PO (22:37)
[2018-12-13] MEDS: lamoTRIgine 100 MG Tablet PO (22:39)
--- NOTE | 2018-12-14 03:55 | NURSING ---
Reviewed and agree with OPHTHALMOLOGY SURGICAL TECHNICIAN documentation and FIMs charting.
[2018-12-14] MEDS: Baclofen 10 MG Tablet 5 MG PO ×3 (05:36→21:41)
[2018-12-14] MEDS: HYDROcodone Bitartrate/Apap 5/325 Tablet PO ×3 (05:37→21:49)
[2018-12-14] MEDS: Menthol/Lanolin/Calamine/Znox 113 GM Tube 1 APPLIC TOPICAL ×2 (05:38→21:40)
[2018-12-14 07:32] VITALS: O2SAT 94
[2018-12-14 07:40] VITALS: BP 112/74; PULSE 72; RESP 16; TEMP 36.9; O2SAT 96
[2018-12-14] MEDS: Gabapentin 600 MG Tablet PO ×2 (09:22→21:41)
[2018-12-14] MEDS: Ascorbic Acid 500 MG Tablet 1500 MG PO (09:22)
[2018-12-14] MEDS: FLUoxetine 20 MG Capsule 40 MG PO (09:22)
[2018-12-14] MEDS: Furosemide 40 MG Tablet PO ×2 (09:22→17:36)
[2018-12-14 09:23] VITALS: PULSE 72
[2018-12-14] MEDS: Metoprolol Tartrate 25 MG Tablet 75 MG PO ×2 (09:23→21:42)
[2018-12-14] MEDS: Doxycycline 100 MG CAPSULE PO ×2 (09:23→21:41)
[2018-12-14] MEDS: dilTIAZem CD 240 MG Capsule PO (09:23)
[2018-12-14] MEDS: Oxybutynin 5 MG Tablet 10 MG PO ×2 (09:23→21:41)
[2018-12-14] MEDS: APIXABAN 5 MG TABLET PO ×2 (09:24→21:41)
[2018-12-14] MEDS: Acetaminophen 325 MG Tablet 650 MG PO (09:29)
[2018-12-14 11:00] VITALS: BP 106/58; BP 110/60; BP 114/62
[2018-12-14 21:00] VITALS: BP 109/77; PULSE 51; RESP 16; TEMP 37.1; O2SAT 91
[2018-12-14] MEDS: lamoTRIgine 100 MG Tablet PO (21:41)
[2018-12-14] MEDS: Atorvastatin Calcium 20 MG Tablet PO (21:41)
[2018-12-14 21:42] VITALS: BP 109/77; PULSE 51
--- NOTE | 2018-12-15 01:27 | NURSING ---
Reviewed and agree with SHEETMETAL WORKER documentation and FIMs charting.
[2018-12-15] MEDS: Acetaminophen 325 MG Tablet 650 MG PO ×2 (02:37→10:34)
[2018-12-15] MEDS: Baclofen 10 MG Tablet 5 MG PO ×3 (06:22→20:34)
[2018-12-15] MEDS: Menthol/Lanolin/Calamine/Znox 113 GM Tube 1 APPLIC TOPICAL ×2 (06:22→20:33)
[2018-12-15] MEDS: HYDROcodone Bitartrate/Apap 5/325 Tablet PO ×3 (06:26→20:41)
[2018-12-15 07:00] VITALS: BP 101/60; PULSE 71; RESP 16; TEMP 36.6; O2SAT 92
[2018-12-15 07:39] VITALS: O2SAT 93
[2018-12-15] MEDS: APIXABAN 5 MG TABLET PO ×2 (08:13→20:33)
[2018-12-15] MEDS: Oxybutynin 5 MG Tablet 10 MG PO ×2 (08:13→20:33)
[2018-12-15] MEDS: FLUoxetine 20 MG Capsule 40 MG PO (08:14)
[2018-12-15] MEDS: Ascorbic Acid 500 MG Tablet 1500 MG PO (08:14)
[2018-12-15] MEDS: Gabapentin 600 MG Tablet PO ×2 (08:14→20:36)
[2018-12-15 11:57] VITALS: PULSE 84
--- NOTE | 2018-12-15 11:58 | NURSING ---
pt refused cardizem, lopressor, and lasix this am d/t low BP. States she monitors her Bp at home and doesn't take these meds if it is low. Re-checked x2 and remains 102/64 HR 84. RN made aware.
--- NOTE | 2018-12-15 13:46 | PCM.PN.NEU ---
Patient Problems: Active and Suspected Problems (Last Updated 04/29/18 @ 15:18 by Cee Mcnulty DO) Debility (Acute) Subjective: No new complaints. Tolerating therapies. No GI or complaints. She does report ongoing pain, and nursing staff notes that her pain complaints are fairly stable and she has had some untoward cognitive reaction to medications in the past. - Physical Exam General: Alert, Oriented x3, Cooperative, No apparent distress Neurological: Cranial nerves II-XII grossly intact Psych/Mental Status: Normal Affect, Alert and oriented to time, place, person, mood and affect Vital Signs Temp Pulse Resp BP Pulse Ox 36.6 C 84 16 101/60 93 12/15/18 07:00 12/15/18 11:57 12/15/18 07:00 12/15/18 07:00 12/15/18 07:39 Oxygen Flow Rate (L/min) 2 Oxygen Delivery Method Room Air Weight: 123.37 kg Body Mass Index (BMI) 41.3 Intake and Output for Last 24 Hours 12/13/18 12/14/18 12/15/18 23:59 23:59 23:59 Intake Total 360 / 360 240 / 240 Balance 360 / 360 240 / 240 Current Medications Generic Name Dose Route Start Last Admin Trade Name Freq PRN Reason Stop Dose Admin Acetaminophen 650 mg 12/07/18 20:04 12/15/18 10:34 Tylenol PO 650 mg Q6H PRN PRN Administration Mild Pain (scale 0-3)/T>100.7 Hydrocodone Bitart/Acetaminophen 1 tablet 12/10/18 10:41 12/15/18 13:39 [place] 5mg-325mg PO 1 tablet Q6H PRN PRN Administration SEVERE PAIN (6-10/10) Apixaban 5 mg 12/07/18 22:00 12/15/18 08:13 Eliquis PO 5 mg BID SUZANNE Administration Ascorbic Acid 1,500 mg 12/08/18 10:00 12/15/18 08:14 Vitamin C PO 1,500 mg DAILY SUZANNE Administration Atorvastatin Calcium 20 mg 12/07/18 22:00 12/14/18 21:41 Lipitor PO 20 mg QHS SUZANNE Administration Baclofen 5 mg 12/09/18 14:00 12/15/18 13:38 Lioresal PO 5 mg TID SUZANNE Administration Bisacodyl 10 mg 12/07/18 20:04 12/09/18 01:56 Dulcolax RECTAL 10 mg DAILY PRN PRN Administration Constipation Calamine/Phenol 1 applic 12/10/18 22:00 12/15/18 06:22 Calmoseptine Ointment TOPICAL 1 applicatio BID@0600,2200 SUZANNE Administration Protocol Diltiazem HCl 240 mg 12/08/18 10:00 12/15/18 11:57 Cardizem Cd PO Not Given DAILY [facility] Ergocalciferol 50,000 unit 12/12/18 10:00 12/12/18 08:49 Vitamin D PO 50,000 unit LUDWIG [facility] Administration Fluoxetine HCl 40 mg 12/08/18 10:00 12/15/18 08:14 Prozac PO 40 mg DAILY [facility] Administration Furosemide 40 mg 12/08/18 10:00 12/15/18 11:57 Lasix PO Not Given BIDLX [facility] Gabapentin 600 mg 12/07/18 22:00 12/15/18 08:14 Neurontin PO 600 mg BID [facility] Administration Lamotrigine 100 mg 12/07/18 22:00 12/14/18 21:41 Lamictal PO 100 mg QHS [facility] Administration Magnesium Hydroxide 30 ml 12/07/18 20:06 12/08/18 19:58 Milk Of Magnesia PO 30 ml .PRN X 1 PRN Administration Constipation Metoprolol Tartrate 75 mg 12/07/18 22:00 12/15/18 11:57 Lopressor (Beta Danielle) PO Not Given BID [facility] Oxybutynin Chloride 10 mg 12/07/18 22:00 12/15/18 08:13 Ditropan PO 10 mg BID [facility] Administration Polyethylene Glycol 17 gm 12/08/18 10:00 12/15/18 08:14 Miralax PO Not Given DAILY [facility] Potassium Chloride 40 meq 12/08/18 08:00 12/15/18 08:12 [facility] Administration Senna/Docusate Sodium 2 tablet 12/07/18 22:00 12/15/18 08:14 Senokot-S, Sena-Colace PO Not Given BID [facility] Zolpidem Tartrate 5 mg 12/07/18 20:04 Ambien (Generic) PO QHS PRN PRN INSOMNIA Medical Necessity - Tobacco Use Smoking Status: Former smoker Assessment/Plan All Active Problems (Last Updated 04/29/18 @ 15:18 by Cee Mcnulty DO) Acute fall (Acute) Fracture of femur, distal, left, closed (Acute) Debility (Acute) Acute exacerbation of chronic obstructive pulmonary disease (COPD) (Resolved) Parainfluenza virus bronchopneumonia (Resolved) History of MRSA infection (Resolved) Non-healing wound of lower extremity (Acute) Allergic reaction due to correct medicinal substance properly administered (Resolved) Atrial fibrillation with RVR (Resolved) CAP (community acquired pneumonia) (Resolved) Cellulitis of lower leg (Resolved) Influenza B (Resolved) Laceration of head (Resolved) Metabolic alkalosis (Resolved) Pneumonia (Resolved) Syncope and collapse (Resolved) Per notes: The patient is a 63 year old F with PMH HTN, Afib on Eliquis, LUIS, morbid obesity, COPD, GERD, chronic non healing ulcer bilateral LE, Lumbar spondylosis with lumbar radiculopathy and degenerative disc disease, depression/anxiety admitted to [facility] on 12/07/18 with debility s/p fall and left distal femur closed fracture s/p revision total left knee replacement done by Dr. Jenkins on 12/04/18, for >3 hrs therapy daily with a goal of returning back home at or near her prior level of functional independence. Per patient she fell on ice on 12/03/18, had femur fracture, per patient she hit her back of the head also, but denies any LOC, had some double vision since but has improved, denies any MARINO. Lives with her BF and brother in an apartment, has 2 steps to go into the house, does not use cane or walker at baseline, denies any frequent falls, does drive and does not need any assistance for her ADLs at baseline. Per patient she has chronic low back pain, does go to pain management for the same. Has occasional radicular symptoms but denies the same at present. Impression: Debility status post left femur fracture status post ORIF and revision of left knee replacement. Goal of rehab is mandaen of prior level of functional independence. Plan -PT for gait stability and balance -OT for ADLs -Analgesics PRN -Bowel protocol -Left distal closed femur fracture s/p revision total left knee replacement- further postsurgical management per orthopedic Dr. Jenkins's recommendation. Per Dr. Jenkins's further recommendation doxycycline was restarted and it is to be given for 14 days. WBCs 9.1 (12/10/2018). 12/16: Stable -Orthostatic vitals were positive- maintain hydration, compression stockings as needed. 12/16: Stable -Dizziness and light headedness per PT/OT after patient walks a few steps- probably orthostatic but will re-check CT head w/o contrast as she had hit the back of the head when she fell on 12/01/18 per patient. Per patient she does not want to get MRI brain due to claustrophobia. will do CT head for possible post-concussion syndrome. 12/16: No recurrence ?Muscle spasms?patient was started on baclofen 10 mg p.o. [address] Harris about a month ago. Per patient baclofen has not helped much. decreased to baclofen to 5 mg p.o. 3 times daily. 12/16: Resolved this may be due to overmedication with narcotics ?We will discontinue trazodone as PT/OT thinks patient is too sleepy at times. Stopping trazodone has helped. -HTN-on Lasix, Metoprolol and Diltiazem. BP controlled -HLD- on atorvastatin -Afib-On Eliquis 5mg PO BID. Rate controlled. -Chronic low back pain- on gabapentin 600 mg PO BID and Baclofen -Anxiety/mood d/o- on Prozac and Lamictal 100 mg PO q hs. 12/16: Stable -Urinary disturbances- on Ditropan 12/16: Stable -GI/DVT prophylaxis- ON Eliquis -Fall precautions -Further medical management per hospitalist recommendation. Hospitalist consult -Follow with PCP, Orthopedic surgeon Dr. Jenkins, and Cardiology as outpatient after discharge.
[2018-12-15] MEDS: Furosemide 40 MG Tablet PO (17:32)
[2018-12-15 20:02] VITALS: BP 109/65; PULSE 90; RESP 16; TEMP 36.9; O2SAT 98
[2018-12-15] MEDS: lamoTRIgine 100 MG Tablet PO (20:34)
[2018-12-15 20:35] VITALS: PULSE 90
[2018-12-15] MEDS: Atorvastatin Calcium 20 MG Tablet PO (20:35)
[2018-12-15] MEDS: Metoprolol Tartrate 25 MG Tablet 75 MG PO (20:35)
[2018-12-16] VITALS (7 sets, daily range): BP systolic 98–133; BP diastolic 59–62; PULSE 76–90; RESP 18; TEMP 36.8–37.1; O2SAT 95–96
[2018-12-16] MEDS: Baclofen 10 MG Tablet 5 MG PO ×3 (06:43→20:49)
[2018-12-16] MEDS: Menthol/Lanolin/Calamine/Znox 113 GM Tube 1 APPLIC TOPICAL ×2 (06:45→21:36)
[2018-12-16] MEDS: HYDROcodone Bitartrate/Apap 5/325 Tablet PO ×3 (06:48→20:53)
[2018-12-16] MEDS: FLUoxetine 20 MG Capsule 40 MG PO (09:57)
[2018-12-16] MEDS: Ascorbic Acid 500 MG Tablet 1500 MG PO (09:57)
[2018-12-16] MEDS: Gabapentin 600 MG Tablet PO ×2 (09:57→20:50)
[2018-12-16] MEDS: APIXABAN 5 MG TABLET PO ×2 (09:57→20:49)
[2018-12-16] MEDS: Oxybutynin 5 MG Tablet 10 MG PO ×2 (09:57→20:49)
[2018-12-16] MEDS: Furosemide 40 MG Tablet PO ×2 (09:57→17:40)
[2018-12-16] MEDS: Metoprolol Tartrate 25 MG Tablet 75 MG PO (09:57)
[2018-12-16] MEDS: dilTIAZem CD 240 MG Capsule PO (09:58)
--- NOTE | 2018-12-16 11:39 | PCM.PN.NEU ---
Patient Problems: Active and Suspected Problems (Last Updated 04/29/18 @ 15:18 by Cee Mcnulty DO) Debility (Acute) Subjective: No new complaints. Tolerating therapies. No GI or complaints. She reports intermittent itching and takes Benadryl intermittently at home. This has been ordered. She denies any rashes. She also prefers trazodone 50 mg at bedtime and this has been ordered as well. Apparently she does not tolerate Ambien. - Physical Exam General: Alert, Oriented x3, Cooperative, No apparent distress Musculoskeletal: - - Left knee incision is clear Neurological: Cranial nerves II-XII grossly intact Psych/Mental Status: Normal Affect, Alert and oriented to time, place, person, mood and affect Vital Signs Temp Pulse Resp BP Pulse Ox 36.8 C 90 18 133/59 H 95 12/16/18 07:50 12/16/18 09:57 12/16/18 07:50 12/16/18 07:50 12/16/18 07:50 Oxygen Flow Rate (L/min) 2 Oxygen Delivery Method Room Air Weight: 123.37 kg Body Mass Index (BMI) 41.3 Intake and Output for Last 24 Hours 12/14/18 12/15/18 12/16/18 23:59 23:59 23:59 Intake Total 720 / 720 440 / 440 Balance 720 / 720 440 / 440 Current Medications Generic Name Dose Route Start Last Admin Trade Name Freq PRN Reason Stop Dose Admin Acetaminophen 650 mg 12/07/18 20:04 12/15/18 10:34 Tylenol PO 650 mg Q6H PRN PRN Administration Mild Pain (scale 0-3)/T>100.7 Hydrocodone Bitart/Acetaminophen 1 tablet 12/10/18 10:41 12/16/18 06:48 [place] 5mg-325mg PO 1 tablet Q6H PRN PRN Administration SEVERE PAIN (6-10/10) Apixaban 5 mg 12/07/18 22:00 12/16/18 09:57 Eliquis PO 5 mg BID SUZANNE Administration Ascorbic Acid 1,500 mg 12/08/18 10:00 12/16/18 09:57 Vitamin C PO 1,500 mg DAILY SUZANNE Administration Atorvastatin Calcium 20 mg 12/07/18 22:00 12/15/18 20:35 Lipitor PO 20 mg QHS SUZANNE Administration Baclofen 5 mg 12/09/18 14:00 12/16/18 06:43 Lioresal PO 5 mg TID SUZANNE Administration Bisacodyl 10 mg 12/07/18 20:04 12/09/18 01:56 Dulcolax RECTAL 10 mg DAILY PRN PRN Administration Constipation Calamine/Phenol 1 applic 12/10/18 22:00 12/16/18 06:45 Calmoseptine Ointment TOPICAL 1 applicatio BID@0600,2200 [facility] Administration Protocol Diltiazem HCl 240 mg 12/08/18 10:00 12/16/18 09:58 Cardizem Cd PO 240 mg DAILY [facility] Administration Diphenhydramine HCl 25 mg 12/16/18 09:55 Benadryl PO TID PRN PRN ITCHING Ergocalciferol 50,000 unit 12/12/18 10:00 12/12/18 08:49 Vitamin D PO 50,000 unit LUDWIG [facility] Administration Fluoxetine HCl 40 mg 12/08/18 10:00 12/16/18 09:57 Prozac PO 40 mg DAILY [facility] Administration Furosemide 40 mg 12/08/18 10:00 12/16/18 09:57 Lasix PO 40 mg BIDLX [facility] Administration Gabapentin 600 mg 12/07/18 22:00 12/16/18 09:57 Neurontin PO 600 mg BID [facility] Administration Lamotrigine 100 mg 12/07/18 22:00 12/15/18 20:34 Lamictal PO 100 mg QHS [facility] Administration Magnesium Hydroxide 30 ml 12/07/18 20:06 12/08/18 19:58 Milk Of Magnesia PO 30 ml .PRN X 1 PRN Administration Constipation Metoprolol Tartrate 75 mg 12/07/18 22:00 12/16/18 09:57 Lopressor (Beta Danielle) PO 75 mg BID [facility] Administration Oxybutynin Chloride 10 mg 12/07/18 22:00 12/16/18 09:57 Ditropan PO 10 mg BID [facility] Administration Polyethylene Glycol 17 gm 12/08/18 10:00 12/16/18 09:55 Miralax PO Not Given DAILY [facility] Potassium Chloride 40 meq 12/08/18 08:00 12/16/18 09:58 K-Dur PO 40 meq BIDCM [facility] Administration Senna/Docusate Sodium 2 tablet 12/07/18 22:00 12/16/18 09:56 Senokot-S, Sena-Colace PO Not Given BID [facility]ANNE Trazodone HCl 50 mg 12/16/18 22:00 Desyrel PO QHS SUZANNE Zolpidem Tartrate 5 mg 12/07/18 20:04 Ambien (Generic) PO QHS PRN PRN INSOMNIA Medical Necessity - Tobacco Use Smoking Status: Former smoker Assessment/Plan All Active Problems (Last Updated 04/29/18 @ 15:18 by Cee Mcnulty DO) Acute fall (Acute) Fracture of femur, distal, left, closed (Acute) Debility (Acute) Acute exacerbation of chronic obstructive pulmonary disease (COPD) (Resolved) Parainfluenza virus bronchopneumonia (Resolved) History of MRSA infection (Resolved) Non-healing wound of lower extremity (Acute) Allergic reaction due to correct medicinal substance properly administered (Resolved) Atrial fibrillation with RVR (Resolved) CAP (community acquired pneumonia) (Resolved) Cellulitis of lower leg (Resolved) Influenza B (Resolved) Laceration of head (Resolved) Metabolic alkalosis (Resolved) Pneumonia (Resolved) Syncope and collapse (Resolved) Per notes: The patient is a 63 year old F with PMH HTN, Afib on Eliquis, LUIS, morbid obesity, COPD, GERD, chronic non healing ulcer bilateral LE, Lumbar spondylosis with lumbar radiculopathy and degenerative disc disease, depression/anxiety admitted to [facility] on 12/07/18 with debility s/p fall and left distal femur closed fracture s/p revision total left knee replacement done by Dr. Jenkins on 12/04/18, for >3 hrs therapy daily with a goal of returning back home at or near her prior level of functional independence. Per patient she fell on ice on 12/03/18, had femur fracture, per patient she hit her back of the head also, but denies any LOC, had some double vision since but has improved, denies any MARINO. Lives with her BF and brother in an apartment, has 2 steps to go into the house, does not use cane or walker at baseline, denies any frequent falls, does drive and does not need any assistance for her ADLs at baseline. Per patient she has chronic low back pain, does go to pain management for the same. Has occasional radicular symptoms but denies the same at present. Impression: Debility status post left femur fracture status post ORIF and revision of left knee replacement. Goal of rehab is adventism of prior level of functional independence. Plan -PT for gait stability and balance -OT for ADLs -Analgesics PRN -Bowel protocol -Left distal closed femur fracture s/p revision total left knee replacement- further postsurgical management per orthopedic Dr. Jenkins's recommendation. Per Dr. Jenkins's further recommendation doxycycline was restarted and it is to be given for 14 days. WBCs 9.1 (12/10/2018). 2: Stable. Incision is clear. -Orthostatic vitals were positive- maintain hydration, compression stockings as needed. 2: Stable -Dizziness and light headedness per PT/OT after patient walks a few steps- probably orthostatic but will re-check CT head w/o contrast as she had hit the back of the head when she fell on 12/01/18 per patient. Per patient she does not want to get MRI brain due to claustrophobia. will do CT head for possible post-concussion syndrome. 12/16: No recurrence ?Muscle spasms?patient was started on baclofen 10 mg p.o. [address] Harris about a month ago. Per patient baclofen has not helped much. decreased to baclofen to 5 mg p.o. 3 times daily. 12/16: Resolved this may be due to overmedication with narcotics ?We will discontinue trazodone as PT/OT thinks patient is too sleepy at times. Stopping trazodone has helped. Patient has asked to restart trazodone at 50 mg we will try this and see. -HTN-on Lasix, Metoprolol and Diltiazem. BP controlled -HLD- on atorvastatin -Afib-On Eliquis 5mg PO BID. Rate controlled. -Chronic low back pain- on gabapentin 600 mg PO BID and Baclofen -Anxiety/mood d/o- on Prozac and Lamictal 100 mg PO q hs. 12/16: Stable -Urinary disturbances- on Ditropan 12/16: Stable -GI/DVT prophylaxis- ON Eliquis -Fall precautions -Further medical management per hospitalist recommendation. Hospitalist consult -Follow with PCP, Orthopedic surgeon Dr. Jenkins, and Cardiology as outpatient after discharge.
--- NOTE | 2018-12-16 11:42 | PN.NEURO_ITS ---
Patient Problems: Active and Suspected Problems (Last Updated 04/29/18 @ 15:18 by Cee Mcnulty DO) Debility (Acute) Subjective: No new complaints. Tolerating therapies. No GI or complaints. She reports intermittent itching and takes Benadryl intermittently at home. This has been ordered. She denies any rashes. She also prefers trazodone 50 mg at bedtime and this has been ordered as well. Apparently she does not tolerate Ambien. - Physical Exam General: Alert, Oriented x3, Cooperative, No apparent distress Musculoskeletal: - - Left knee incision is clear Neurological: Cranial nerves II-XII grossly intact Psych/Mental Status: Normal Affect, Alert and oriented to time, place, person, mood and affect Vital Signs Temp Pulse Resp BP Pulse Ox 36.8 C 90 18 133/59 H 95 12/16/18 07:50 12/16/18 09:57 12/16/18 07:50 12/16/18 07:50 12/16/18 07:50 Oxygen Flow Rate (L/min) 2 Oxygen Delivery Method Room Air Weight: 123.37 kg Body Mass Index (BMI) 41.3 Intake and Output for Last 24 Hours 12/14/18 12/15/18 12/16/18 23:59 23:59 23:59 Intake Total 720 / 720 440 / 440 Balance 720 / 720 440 / 440 Current Medications Generic Name Dose Route Start Last Admin Trade Name Freq PRN Reason Stop Dose Admin Acetaminophen 650 mg 12/07/18 20:04 12/15/18 10:34 Tylenol PO 650 mg Q6H PRN PRN Administration Mild Pain (scale 0-3)/T>100.7 Hydrocodone Bitart/Acetaminophen 1 tablet 12/10/18 10:41 12/16/18 06:48 Soldier 5mg-325mg PO 1 tablet Q6H PRN PRN Administration SEVERE PAIN (6-10/10) Apixaban 5 mg 12/07/18 22:00 12/16/18 09:57 Eliquis PO 5 mg BID SUZANNE Administration Ascorbic Acid 1,500 mg 12/08/18 10:00 12/16/18 09:57 Vitamin C PO 1,500 mg DAILY SUZANNE Administration Atorvastatin Calcium 20 mg 12/07/18 22:00 12/15/18 20:35 Lipitor PO 20 mg QHS SUZANNE Administration Baclofen 5 mg 12/09/18 14:00 12/16/18 06:43 Lioresal PO 5 mg TID SUZANNE Administration Bisacodyl 10 mg 12/07/18 20:04 12/09/18 01:56 Dulcolax RECTAL 10 mg DAILY PRN PRN Administration Constipation Calamine/Phenol 1 applic 12/10/18 22:00 12/16/18 06:45 Calmoseptine Ointment TOPICAL 1 applicatio BID@0600,2200 [facility] Administration Protocol Diltiazem HCl 240 mg 12/08/18 10:00 12/16/18 09:58 Cardizem Cd PO 240 mg DAILY [facility] Administration Diphenhydramine HCl 25 mg 12/16/18 09:55 Benadryl PO TID PRN PRN ITCHING Ergocalciferol 50,000 unit 12/12/18 10:00 12/12/18 08:49 Vitamin D PO 50,000 unit LUDWIG [facility] Administration Fluoxetine HCl 40 mg 12/08/18 10:00 12/16/18 09:57 Prozac PO 40 mg DAILY [facility] Administration Furosemide 40 mg 12/08/18 10:00 12/16/18 09:57 Lasix PO 40 mg BIDLX [facility] Administration Gabapentin 600 mg 12/07/18 22:00 12/16/18 09:57 Neurontin PO 600 mg BID [facility] Administration Lamotrigine 100 mg 12/07/18 22:00 12/15/18 20:34 Lamictal PO 100 mg QHS [facility] Administration Magnesium Hydroxide 30 ml 12/07/18 20:06 12/08/18 19:58 Milk Of Magnesia PO 30 ml .PRN X 1 PRN Administration Constipation Metoprolol Tartrate 75 mg 12/07/18 22:00 12/16/18 09:57 Lopressor (Beta Danielle) PO 75 mg BID [facility] Administration Oxybutynin Chloride 10 mg 12/07/18 22:00 12/16/18 09:57 Ditropan PO 10 mg BID [facility] Administration Polyethylene Glycol 17 gm 12/08/18 10:00 12/16/18 09:55 Miralax PO Not Given DAILY [facility] Potassium Chloride 40 meq 12/08/18 08:00 12/16/18 09:58 K-Dur PO 40 meq BIDCM [facility] Administration Senna/Docusate Sodium 2 tablet 12/07/18 22:00 12/16/18 09:56 Senokot-S, Sena-Colace PO Not Given BID SUZANNE Trazodone HCl 50 mg 12/16/18 22:00 Desyrel PO QHS SUZANNE Zolpidem Tartrate 5 mg 12/07/18 20:04 Ambien (Generic) PO QHS PRN PRN INSOMNIA Medical Necessity - Tobacco Use Smoking Status: Former smoker Assessment/Plan All Active Problems (Last Updated 04/29/18 @ 15:18 by Cee Mcnulty DO) Acute fall (Acute) Fracture of femur, distal, left, closed (Acute) Debility (Acute) Acute exacerbation of chronic obstructive pulmonary disease (COPD) (Resolved) Parainfluenza virus bronchopneumonia (Resolved) History of MRSA infection (Resolved) Non-healing wound of lower extremity (Acute) Allergic reaction due to correct medicinal substance properly administered (Resolved) Atrial fibrillation with RVR (Resolved) CAP (community acquired pneumonia) (Resolved) Cellulitis of lower leg (Resolved) Influenza B (Resolved) Laceration of head (Resolved) Metabolic alkalosis (Resolved) Pneumonia (Resolved) Syncope and collapse (Resolved) Per notes: The patient is a 63 year old F with PMH HTN, Afib on Eliquis, LUIS, morbid obesity, COPD, GERD, chronic non healing ulcer bilateral LE, Lumbar spondylosis with lumbar radiculopathy and degenerative disc disease, depression/anxiety admitted to [facility] on 12/07/18 with debility s/p fall and left distal femur closed fracture s/p revision total left knee replacement done by Dr. Jenkins on 12/04/18, for >3 hrs therapy daily with a goal of returning back home at or near her prior level of functional independence. Per patient she fell on ice on 12/03/18, had femur fracture, per patient she hit her back of the head also, but denies any LOC, had some double vision since but has improved, denies any MARINO. Lives with her BF and brother in an apartment, has 2 steps to go into the house, does not use cane or walker at baseline, denies any frequent falls, does drive and does not need any assistance for her ADLs at baseline. Per patient she has chronic low back pain, does go to pain management for the same. Has occasional radicular symptoms but denies the same at present. Impression: Debility status post left femur fracture status post ORIF and revision of left knee replacement. Goal of rehab is christian of prior level of functional independence. Plan -PT for gait stability and balance -OT for ADLs -Analgesics PRN -Bowel protocol -Left distal closed femur fracture s/p revision total left knee replacement- further postsurgical management per orthopedic Dr. Jenkins's recommendation. Per Dr. Jenkins's further recommendation doxycycline was restarted and it is to be given for 14 days. WBCs 9.1 (12/10/2018). 2: Stable. Incision is clear. -Orthostatic vitals were positive- maintain hydration, compression stockings as needed. 2: Stable -Dizziness and light headedness per PT/OT after patient walks a few steps- probably orthostatic but will re-check CT head w/o contrast as she had hit the back of the head when she fell on 12/01/18 per patient. Per patient she does not want to get MRI brain due to claustrophobia. will do CT head for possible post- concussion syndrome. 12/16: No recurrence ?Muscle spasms?patient was started on baclofen 10 mg p.o. [address] Harris about a month ago. Per patient baclofen has not helped much. decreased to baclofen to 5 mg p.o. 3 times daily. 12/16: Resolved this may be due to overmedication with narcotics ?We will discontinue trazodone as PT/OT thinks patient is too sleepy at times. Stopping trazodone has helped. Patient has asked to restart trazodone at 50 mg we will try this and see. -HTN-on Lasix, Metoprolol and Diltiazem. BP controlled -HLD- on atorvastatin -Afib-On Eliquis 5mg PO BID. Rate controlled. -Chronic low back pain- on gabapentin 600 mg PO BID and Baclofen -Anxiety/mood d/o- on Prozac and Lamictal 100 mg PO q hs. 12/16: Stable -Urinary disturbances- on Ditropan 12/16: Stable -GI/DVT prophylaxis- ON Eliquis -Fall precautions -Further medical management per hospitalist recommendation. Hospitalist consult -Follow with PCP, Orthopedic surgeon Dr. Jenkins, and Cardiology as outpatient after discharge.
[2018-12-16] MEDS: traZODone 50 MG Tablet PO (20:48)
[2018-12-16] MEDS: lamoTRIgine 100 MG Tablet PO (20:49)
[2018-12-16] MEDS: Atorvastatin Calcium 20 MG Tablet PO (20:50)
--- NOTE | 2018-12-16 21:17 | NURSING ---
DR CHASE NOTIFIED OF PT'S BLOOD PRESSURE AND PULSE THIS SHIFT. ORDERS GIVEN TO HOLD THIS LOPRESSOR DOSE AND PARAMETERS PROVIDED FOR FUTURE DOSES. CURRENTLY, PT'S SKIN IS WARM AND DRY. HEART RATE IS IRREGULAR. PT STATES SHE HAS HAD INTERMITTENT DIZZINESS SINCE ARRIVING TO REHAB UNIT. PT IS ALERT AND ORIENTED AND ACTING APPROPRIATELY.
[2018-12-17] VITALS (7 sets, daily range): BP systolic 88–112; BP diastolic 62–68; PULSE 74–82; RESP 16–18; TEMP 36.6–36.7; O2SAT 96–98
--- NOTE | 2018-12-17 02:43 | NURSING ---
REVIEWED AND AGREE WITH DOT COMPLIANCE COORDINATOR'S FIM AND HANDOFF CHARTING.
[2018-12-17] MEDS: Baclofen 10 MG Tablet 5 MG PO ×3 (06:29→21:15)
[2018-12-17] MEDS: Menthol/Lanolin/Calamine/Znox 113 GM Tube 1 APPLIC TOPICAL ×2 (06:34→21:14)
[2018-12-17] MEDS: HYDROcodone Bitartrate/Apap 5/325 Tablet PO ×2 (06:44→21:19)
[2018-12-17] MEDS: Oxybutynin 5 MG Tablet 10 MG PO ×2 (08:08→21:15)
[2018-12-17] MEDS: FLUoxetine 20 MG Capsule 40 MG PO (08:08)
[2018-12-17] MEDS: Ascorbic Acid 500 MG Tablet 1500 MG PO (08:08)
[2018-12-17] MEDS: APIXABAN 5 MG TABLET PO ×2 (08:08→21:15)
[2018-12-17] MEDS: Gabapentin 600 MG Tablet PO ×2 (08:09→21:16)
[2018-12-17] MEDS: Furosemide 40 MG Tablet PO ×2 (09:00→17:27)
[2018-12-17] MEDS: Metoprolol Tartrate 25 MG Tablet 75 MG PO ×2 (09:01→21:16)
[2018-12-17] MEDS: dilTIAZem CD 240 MG Capsule PO (09:01)
--- NOTE | 2018-12-17 11:52 | PN.NEURO_ITS ---
Patient Problems: Active and Suspected Problems (Last Updated 04/29/18 @ 15:18 by Cee Mcnulty DO) Debility (Acute) Subjective: No complaints. Tolerating therapies. No GI or complaints although she does have intermittent vertigo and apparently is experiencing this now. She says she has had multiple episodes of this and is been treated with meclizine in the past. She has not had a scan. She says she is claustrophobic and cannot have an MRI but she is willing to undergo CTA. Otherwise tolerating therapies. No G I or complaints. - Physical Exam General: Alert, Oriented x3, Cooperative, No apparent distress HEENT: PERRLA, EOMI Neurological: Cranial nerves II-XII grossly intact Psych/Mental Status: Normal Affect, Alert and oriented to time, place, person, mood and affect Vital Signs Temp Pulse Resp BP Pulse Ox 36.6 C 82 16 112/66 97 12/17/18 08:11 12/17/18 09:01 12/17/18 08:11 12/17/18 08:53 12/17/18 08:11 Oxygen Flow Rate (L/min) 2 Oxygen Delivery Method Room Air Weight: 123.37 kg Body Mass Index (BMI) 41.3 Intake and Output for Last 24 Hours 12/15/18 12/16/18 12/17/18 23:59 23:59 23:59 Intake Total 720 / 720 1380 / 1380 360 / 360 Balance 720 / 720 1380 / 1380 360 / 360 Current Medications Generic Name Dose Route Start Last Admin Trade Name Freq PRN Reason Stop Dose Admin Acetaminophen 650 mg 12/07/18 20:04 12/15/18 10:34 Tylenol PO 650 mg Q6H PRN PRN Administration Mild Pain (scale 0-3)/T>100.7 Hydrocodone Bitart/Acetaminophen 1 tablet 12/10/18 10:41 12/17/18 06:44 Conrad 5mg-325mg PO 1 tablet Q6H PRN PRN Administration SEVERE PAIN (6-10/10) Apixaban 5 mg 12/07/18 22:00 12/17/18 08:08 Eliquis PO 5 mg BID SUZANNE Administration Ascorbic Acid 1,500 mg 12/08/18 10:00 12/17/18 08:08 Vitamin C PO 1,500 mg DAILY SUZANNE Administration Atorvastatin Calcium 20 mg 12/07/18 22:00 12/16/18 20:50 Lipitor PO 20 mg QHS [facility] Administration Baclofen 5 mg 12/09/18 14:00 12/17/18 06:29 Lioresal PO 5 mg TID [facility] Administration Bisacodyl 10 mg 12/07/18 20:04 12/09/18 01:56 Dulcolax RECTAL 10 mg DAILY PRN PRN Administration Constipation Calamine/Phenol 1 applic 12/10/18 22:00 12/17/18 06:34 Calmoseptine Ointment TOPICAL 1 applicatio BID@0600,2200 [facility] Administration Protocol Diltiazem HCl 240 mg 12/08/18 10:00 12/17/18 09:01 Cardizem Cd PO 240 mg DAILY [facility] Administration Diphenhydramine HCl 25 mg 12/16/18 09:55 Benadryl PO TID PRN PRN ITCHING Ergocalciferol 50,000 unit 12/12/18 10:00 12/12/18 08:49 Vitamin D PO 50,000 unit LUDWIG [facility] Administration Fluoxetine HCl 40 mg 12/08/18 10:00 12/17/18 08:08 Prozac PO 40 mg DAILY [facility] Administration Furosemide 40 mg 12/08/18 10:00 12/17/18 09:00 Lasix PO 40 mg BIDLX [facility] Administration Gabapentin 600 mg 12/07/18 22:00 12/17/18 08:09 Neurontin PO 600 mg BID [facility] Administration Lamotrigine 100 mg 12/07/18 22:00 12/16/18 20:49 Lamictal PO 100 mg QHS [facility] Administration Magnesium Hydroxide 30 ml 12/07/18 20:06 12/08/18 19:58 Milk Of Magnesia PO 30 ml .PRN X 1 PRN Administration Constipation Metoprolol Tartrate 75 mg 12/16/18 22:00 12/17/18 09:01 Lopressor (Beta Danielle) PO 75 mg BID [facility] Administration Oxybutynin Chloride 10 mg 12/07/18 22:00 12/17/18 08:08 Ditropan PO 10 mg BID [facility] Administration Polyethylene Glycol 17 gm 12/08/18 10:00 12/17/18 08:09 Miralax PO Not Given DAILY [facility] Potassium Chloride 40 meq 12/08/18 08:00 12/17/18 08:08 K-Dur PO 40 meq BIDCM [facility] Administration Senna/Docusate Sodium 2 tablet 12/07/18 22:00 12/17/18 08:09 Senokot-S, Sena-Colace PO Not Given BID SUZANNE Trazodone HCl 50 mg 12/16/18 22:00 12/16/18 20:48 Desyrel PO 50 mg QHS SUZANNE Administration Zolpidem Tartrate 5 mg 12/07/18 20:04 Ambien (Generic) PO QHS PRN PRN INSOMNIA Medical Necessity - Tobacco Use Smoking Status: Former smoker Assessment/Plan All Active Problems (Last Updated 04/29/18 @ 15:18 by Cee Mcnulty DO) Acute fall (Acute) Fracture of femur, distal, left, closed (Acute) Debility (Acute) Acute exacerbation of chronic obstructive pulmonary disease (COPD) (Resolved) Parainfluenza virus bronchopneumonia (Resolved) History of MRSA infection (Resolved) Non-healing wound of lower extremity (Acute) Allergic reaction due to correct medicinal substance properly administered (Resolved) Atrial fibrillation with RVR (Resolved) CAP (community acquired pneumonia) (Resolved) Cellulitis of lower leg (Resolved) Influenza B (Resolved) Laceration of head (Resolved) Metabolic alkalosis (Resolved) Pneumonia (Resolved) Syncope and collapse (Resolved) Per notes: The patient is a 63 year old F with PMH HTN, Afib on Eliquis, LUIS, morbid obesity, COPD, GERD, chronic non healing ulcer bilateral LE, Lumbar spondylosis with lumbar radiculopathy and degenerative disc disease, depression/anxiety admitted to [facility] on 12/07/18 with debility s/p fall and left distal femur closed fracture s/p revision total left knee replacement done by Dr. Jenkins on 12/04/18, for >3 hrs therapy daily with a goal of returning back home at or near her prior level of functional independence. Per patient she fell on ice on 12/03/18, had femur fracture, per patient she hit her back of the head also, but denies any LOC, had some double vision since but has improved, denies any MARINO. Lives with her BF and brother in an apartment, has 2 steps to go into the house, does not use cane or walker at baseline, denies any frequent falls, does drive and does not need any assistance for her ADLs at baseline. Per patient she has chronic low back pain, does go to pain management for the same. Has occasional radicular symptoms but denies the same at present. Impression: Debility status post left femur fracture status post ORIF and revision of left knee replacement. Goal of rehab is denominational of prior level of functional independence. Plan -PT for gait stability and balance -OT for ADLs -Analgesics PRN -Bowel protocol -Left distal closed femur fracture s/p revision total left knee replacement- further postsurgical management per orthopedic Dr. Jenkins's recommendation. Per Dr. Jenkins's further recommendation doxycycline was restarted and it is to be given for 14 days. WBCs 9.1 (12/10/2018). 2: Stable. Incision is clear. -Orthostatic vitals were positive- maintain hydration, compression stockings as needed. 12/16: Stable. -Dizziness and light headedness per PT/OT after patient walks a few steps- probably orthostatic but will re-check CT head w/o contrast as she had hit the back of the head when she fell on 12/01/18 per patient. Per patient she does not want to get MRI brain due to claustrophobia. will do CT head for possible post- concussion syndrome. 12/16: No recurrence. Vertigo has recurred. We will do a CTA of her head and neck. Patient cannot have an MRI due to claustrophobia. ?Muscle spasms?patient was started on baclofen 10 mg p.o. [address] Harris about a month ago. Per patient baclofen has not helped much. decreased to baclofen to 5 mg p.o. 3 times daily. 12/16: Resolved this may be due to overmedication with narcotics ?We will discontinue trazodone as PT/OT thinks patient is too sleepy at times. Stopping trazodone has helped. Patient has asked to restart trazodone at 50 mg we will try this and see. -HTN-on Lasix, Metoprolol and Diltiazem. BP controlled -HLD- on atorvastatin -Afib-On Eliquis 5mg PO BID. Rate controlled. -Chronic low back pain- on gabapentin 600 mg PO BID and Baclofen -Anxiety/mood d/o- on Prozac and Lamictal 100 mg PO q hs. 12/16: Stable -Urinary disturbances- on Ditropan 12/16: Stable -GI/DVT prophylaxis- ON Eliquis -Fall precautions -Further medical management per hospitalist recommendation. Hospitalist consult -Follow with PCP, Orthopedic surgeon Dr. Jenkins, and Cardiology as outpatient after discharge.
--- NOTE | 2018-12-17 11:53 | CT_ITS ---
STUDY: CTA OF THE BRAIN without and with IV contrast REASON FOR EXAM: Female, 63 years old. RADIATION DOSAGE (If Supplied By Facility): CTDIvol = ( 42.35 ) mGy, DLP = ( 1514.24 ) mGycm TECHNIQUE: Axial head CT imaging was initially performed without IV contrast. CT angiography was performed with a multi-detector CT scanner. Data acquisition was obtained from the skull base through the vertex following intravenous administration of 100 ml of Isovue-370. MIP images were reconstructed from the axial data set. Post-processing of the angiographic images was performed, with multiplanar reformation and 3D reconstruction. Individualized dose optimization techniques were used for this CT. COMPARISON: None. FINDINGS: Normal bilateral petrous carotid arteries. There is calcified plaque formation of the right cavernous carotid artery, without a cross-sectional luminal stenosis. Normal left cavernous carotid artery with a normal supraclinoid bifurcation. Normal right A1 segments of the anterior cerebral artery. Normal left A1 segments of the anterior cerebral artery. Normal intact anterior communicating artery (ACOM). Normal bilateral A2 segments of the anterior cerebral arteries. Normal right M1 and M2 segments of the middle cerebral arteries, with a normal M1 bifurcation. Normal left M1 and M2 segments of the middle cerebral arteries, with a normal M1 bifurcation. Normal right posterior communicating artery (PCOM). 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 There is a small atretic right vertebral artery with a dominant left vertebral artery. Arising from the medial side of the left posterior inferior cerebellar artery, there is a 7.8 x 7.5 mm saccular aneurysm best seen on image 175 of series 3 and image 57 of 601. The visualized bilateral superior cerebellar (SCA) arteries are normal. Normal bilateral P1, P2 and visualized P3 segments of the posterior cerebral arteries. There is no demonstrated aneurysm of the jackson of Ray. Mild central parenchymal volume loss. No masses, mass effects or shift of the midline structures. Diminished areas of white matter in the periventricular and subcortical regions. No acute intracranial hemorrhage or obvious infarction. Visualized paranasal sinuses, orbits and mastoid air cells are unremarkable except for minimal mucosal thickening of the sphenoid sinus. CT/CTA Head W/WO Contrast IMPRESSION: 1. 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 2. No acute intracranial hemorrhage. 3. Age-appropriate central parenchymal volume loss. White matter changes that are nonspecific but most commonly associated with chronic small vessel ischemic disease. Electronically Signed: Say Kimball MD at 19:27 EST , Service support ,
--- NOTE | 2018-12-17 11:53 | CT_ITS ---
We are attempting to reach Hayden Villarreal MD to discuss findings. An addendum with communication details will be sent when the communication is complete. STUDY: CTA NECK WITH CONTRAST REASON FOR EXAM: Female, 63 years old. Dizziness RADIATION DOSAGE (If Supplied By Facility): CTDIvol = ( ) mGy, DLP = ( ) mGycm TECHNIQUE: CT angiography with multi-detector data acquisition was performed from the aortic arch to the skull base following intravenous administration of 100ML ml of Isovue 370 contrast. MIP images were reconstructed from the axial data set. Post-processing of the angiographic images was performed, with multiplanar reformation and 3D reconstruction. Individualized dose optimization techniques were used for this CT. COMPARISON: None. FINDINGS: AORTIC ARCH: Normal visualized aortic arch. Normal origins of the brachiocephalic, left common carotid, and left subclavian arteries. RIGHT CAROTID ARTERIES: Normal right common carotid artery (CCA). Normal right common carotid bulb. Normal origin of the right internal carotid (ICA) artery without a hemodynamically significant stenosis. There is atherosclerotic tortuous elongation of the cervical portion of the right internal carotid artery. Normal origin of the right external carotid artery (ECA). LEFT CAROTID ARTERIES: Normal left common carotid artery (CCA). There is mild atherosclerotic plaque formation with minimal narrowing of the left carotid bulb. Normal origin of the left internal carotid (ICA) artery without a hemodynamically significant stenosis. There is atherosclerotic tortuous elongation of the cervical portion of the left internal carotid artery. Normal origin of the left external carotid artery (ECA). VERTEBRAL ARTERIES: Normal bilateral vertebral arteries. Mild adenopathy of the upper mediastinum is only partially visualized. Station 4 lymph nodes measure up to 1.6 cm in short axis. CT/CTA Neck W/WO Contrast IMPRESSION: 1. No hemodynamically significant stenosis or dissection. Mild atherosclerosis with tortuosity. 2. Mediastinal adenopathy partially visualized. Recommend chest CT/follow-up. Electronically Signed: Say Kimball MD at 19:43 EST , Service support ,
--- NOTE | 2018-12-17 20:15 | NURSING ---
DR BENTLEY ON [facility] CALLS TO REPORT CRITICAL RESULTS FROM CTA NECK OF PT. PHONE # . DR BENTLEY REPORTS PT HAS AN 8 MM PICA,(L POST INF CEREBELLAR ARTERY ANEURYSM. PAGE PLACE TO DR SONG VIA NEUROLOGY CELL OPERATION SUPERVISOR.
--- NOTE | 2018-12-17 20:20 | NURSING ---
PT CURRENTLY TALKING ON PHONE. FEELS FINE. VITALS DONE.
--- NOTE | 2018-12-17 20:35 | NURSING ---
DR VAZQUEZ PHONES INTO UNIT (MEDICINE AIDE FOR NEUROLOGY). INFORMED OF CRITICAL RESULT GIVEN BY DR BENTLEY OF [facility] OF AN 8 MM PICA ANEURYSM ON PT'S CTA OF NECK DONE TODAY. NO NEW ORDERS GIVEN AT THIS TIME.
[2018-12-17] MEDS: lamoTRIgine 100 MG Tablet PO (21:15)
[2018-12-17] MEDS: traZODone 50 MG Tablet PO (21:15)
[2018-12-17] MEDS: Atorvastatin Calcium 20 MG Tablet PO (21:16)
--- NOTE | 2018-12-18 03:15 | NURSING ---
REVIEWED AND AGREE WITH CONVERTING OPERATOR'S FIM AND HANDOFF CHARTING.
[2018-12-18] MEDS: Baclofen 10 MG Tablet 5 MG PO ×3 (05:27→21:15)
[2018-12-18] MEDS: Menthol/Lanolin/Calamine/Znox 113 GM Tube 1 APPLIC TOPICAL ×2 (05:28→21:24)
[2018-12-18 07:00] VITALS: BP 123/68; PULSE 71; RESP 18; TEMP 36.7; O2SAT 93
[2018-12-18] MEDS: dilTIAZem CD 240 MG Capsule PO (07:42)
[2018-12-18 07:43] VITALS: PULSE 70
[2018-12-18] MEDS: Metoprolol Tartrate 25 MG Tablet 75 MG PO ×2 (07:43→21:14)
[2018-12-18] MEDS: Oxybutynin 5 MG Tablet 10 MG PO ×2 (07:43→21:16)
[2018-12-18] MEDS: APIXABAN 5 MG TABLET PO ×2 (07:43→21:17)
[2018-12-18] MEDS: Furosemide 40 MG Tablet PO ×2 (07:43→17:20)
[2018-12-18] MEDS: Ascorbic Acid 500 MG Tablet 1500 MG PO (07:45)
[2018-12-18] MEDS: Gabapentin 600 MG Tablet PO ×2 (07:45→21:14)
[2018-12-18] MEDS: FLUoxetine 20 MG Capsule 40 MG PO (07:45)
[2018-12-18] MEDS: HYDROcodone Bitartrate/Apap 5/325 Tablet PO ×3 (07:45→21:22)
[2018-12-18 14:15] VITALS: O2SAT 94
[2018-12-18 20:11] VITALS: BP 110/76; PULSE 67; RESP 16; TEMP 36.7; O2SAT 95
[2018-12-18 21:14] VITALS: PULSE 72
[2018-12-18] MEDS: Atorvastatin Calcium 20 MG Tablet PO (21:14)
[2018-12-18] MEDS: traZODone 50 MG Tablet PO (21:16)
[2018-12-18] MEDS: lamoTRIgine 100 MG Tablet PO (21:16)
[2018-12-18] MEDS: Senna/Docusate Sodium 1 Tablet 2 TABLET PO (21:17)
[2018-12-18] MEDS: Zolpidem Tartrate 5 MG Tablet PO (22:59)
[2018-12-19] MEDS: Baclofen 10 MG Tablet 5 MG PO ×3 (06:11→21:21)
[2018-12-19] MEDS: HYDROcodone Bitartrate/Apap 5/325 Tablet PO ×3 (06:12→21:20)
[2018-12-19] MEDS: Menthol/Lanolin/Calamine/Znox 113 GM Tube 1 APPLIC TOPICAL ×2 (06:13→21:21)
[2018-12-19 07:47] VITALS: BP 102/64; PULSE 70; RESP 18; TEMP 36.3; O2SAT 98
[2018-12-19 08:46] VITALS: PULSE 67
[2018-12-19] MEDS: Metoprolol Tartrate 25 MG Tablet 75 MG PO ×2 (08:46→21:22)
[2018-12-19] MEDS: Ascorbic Acid 500 MG Tablet 1500 MG PO (08:46)
[2018-12-19] MEDS: FLUoxetine 20 MG Capsule 40 MG PO (08:46)
[2018-12-19] MEDS: Gabapentin 600 MG Tablet PO ×2 (08:46→21:21)
[2018-12-19] MEDS: Furosemide 40 MG Tablet PO ×2 (08:46→16:35)
[2018-12-19] MEDS: Oxybutynin 5 MG Tablet 10 MG PO ×2 (08:47→21:21)
[2018-12-19] MEDS: APIXABAN 5 MG TABLET PO ×2 (08:54→21:21)
[2018-12-19] MEDS: dilTIAZem CD 240 MG Capsule PO (08:55)
--- NOTE | 2018-12-19 18:23 | NURSING ---
Refused several times to ambulate with staff in hallway. Patient reported she wanted to rest.
[2018-12-19 20:55] VITALS: BP 104/58; PULSE 72; PULSE 95; RESP 18; TEMP 37.1; O2SAT 95
[2018-12-19] MEDS: Atorvastatin Calcium 20 MG Tablet PO (21:21)
[2018-12-19] MEDS: lamoTRIgine 100 MG Tablet PO (21:21)
[2018-12-19] MEDS: Senna/Docusate Sodium 1 Tablet 2 TABLET PO (21:21)
[2018-12-19] MEDS: traZODone 50 MG Tablet PO (21:21)
[2018-12-19 21:22] VITALS: BP 104/58; PULSE 72
[2018-12-19] MEDS: Zolpidem Tartrate 5 MG Tablet PO (23:05)
[2018-12-20] MEDS: Baclofen 10 MG Tablet 5 MG PO ×3 (06:27→21:32)
[2018-12-20] MEDS: Menthol/Lanolin/Calamine/Znox 113 GM Tube 1 APPLIC TOPICAL ×2 (06:28→21:33)
--- NOTE | 2018-12-20 06:32 | NURSING ---
0600 24 sutures were removed from incision to the lt thigh and knee as per order. pt tolerated the procedure well. no active drainage was noted old dried drainage noted along the incision line
[2018-12-20 07:11] LABS: Bedside Glucose 96 mg/dL (70-110)
--- NOTE | 2018-12-20 07:46 | PN_ITS ---
Patient Problems: Active and Suspected Problems (Last Updated 04/29/18 @ 15:18 by Cee Mcnulty DO) Debility (Acute) Subjective: Patient still complains of discomfort in left lower extremity otherwise tolerating physical therapy well Objective: GENERAL: cooperative HEENT: Atraumatic; moist oral mucosa EYES; Anicteric, Normal Conjunctiva NECK; supple, normal thyroid, no distended JVD. RESPIRATORY: Diminished to auscultation bilaterally, CARDIOVASCULAR: Regular S1 S2, no audible murmurs GI: soft, non-tender, normoactive bowel sounds, : No Renal angle tenderness; EXTREMITIES: No edema, no clubbing, no cyanosis. MUSCULOSKELETAL: left Knee surgical dressing NEURO: Awake; no lateralizing signs. SKIN: No Rash PSYCH; Normal affect Vitals/I&O's: Vital Signs Temp Pulse Resp BP Pulse Ox 98.7 F 72 18 104/58 L 95 12/19/18 20:55 12/19/18 21:22 12/19/18 20:55 12/19/18 21:22 12/19/18 20:55 Oxygen Flow Rate (L/min) 2 Oxygen Delivery Method Room Air Weight: 123.37 kg Body Mass Index (BMI) 41.3 Intake and Output for Last 24 Hours 12/18/18 12/19/18 12/20/18 23:59 23:59 23:59 Intake Total 600 / 600 Balance 600 / 600 Laboratory Results 12/20/18 06:54: POC Glucose 96 Current Medications Acetaminophen (Tylenol) 650 mg PO Q6H PRN PRN PRN Reason: Mild Pain (scale 0-3)/T>100.7 Last Admin: 12/15/18 10:34 Dose: 650 mg Hydrocodone Bitart/Acetaminophen ([place] 5mg-325mg) 1 tablet PO Q6H PRN PRN PRN Reason: SEVERE PAIN (6-10/10) Last Admin: 12/19/18 21:20 Dose: 1 tablet Apixaban (Eliquis) 5 mg PO BID [facility] Last Admin: 12/19/18 21:21 Dose: 5 mg Ascorbic Acid (Vitamin C) 1,500 mg PO DAILY [facility] Last Admin: 12/19/18 08:46 Dose: 1,500 mg Atorvastatin Calcium (Lipitor) 20 mg PO QHS [facility] Last Admin: 02/10/19 21:21 Dose: 20 mg Baclofen (Lioresal) 5 mg PO TID [facility] Last Admin: 12/20/18 06:27 Dose: 5 mg Bisacodyl (Dulcolax) 10 mg RECTAL DAILY PRN PRN PRN Reason: Constipation Last Admin: 12/09/18 01:56 Dose: 10 mg Calamine/Phenol (Calmoseptine Ointment) 1 applic TOPICAL BID@0600,2200 [facility]; Protocol Last Admin: 12/20/18 06:28 Dose: 1 applicatio Diltiazem HCl (Cardizem Cd) 240 mg PO DAILY [facility] Last Admin: 12/19/18 08:55 Dose: 240 mg Diphenhydramine HCl (Benadryl) 25 mg PO TID PRN PRN PRN Reason: ITCHING Ergocalciferol (Vitamin D) 50,000 unit PO LUDWIG [facility] Last Admin: 12/19/18 08:46 Dose: 50,000 unit Fluoxetine HCl (Prozac) 40 mg PO DAILY [facility] Last Admin: 12/19/18 08:46 Dose: 40 mg Furosemide (Lasix) 40 mg PO BIDLX [facility] Last Admin: 12/19/18 16:35 Dose: 40 mg Gabapentin (Neurontin) 600 mg PO BID [facility] Last Admin: 12/19/18 21:21 Dose: 600 mg Lamotrigine (Lamictal) 100 mg PO QHS [facility] Last Admin: 12/19/18 21:21 Dose: 100 mg Magnesium Hydroxide (Milk Of Magnesia) 30 ml PO .PRN X 1 PRN PRN Reason: Constipation Last Admin: 12/08/18 19:58 Dose: 30 ml Metoprolol Tartrate (Lopressor (Beta Danielle)) 75 mg PO BID [facility] Last Admin: 12/19/18 21:22 Dose: 75 mg Oxybutynin Chloride (Ditropan) 10 mg PO BID [facility] Last Admin: 12/19/18 21:21 Dose: 10 mg Polyethylene Glycol (Miralax) 17 gm PO DAILY [facility] Last Admin: 12/19/18 08:55 Dose: Not Given Potassium Chloride (K-Dur) 40 meq PO BIDCM [facility] Last Admin: 12/19/18 16:35 Dose: 40 meq Senna/Docusate Sodium (Senokot-S, Sena-Colace) 2 tablet PO BID [facility] Last Admin: 12/19/18 21:21 Dose: 2 tablet Trazodone HCl (Desyrel) 50 mg PO QHS [facility] Last Admin: 12/19/18 21:21 Dose: 50 mg Zolpidem Tartrate (Ambien (Generic)) 5 mg PO QHS PRN PRN PRN Reason: INSOMNIA Last Admin: 12/19/18 23:05 Dose: 5 mg Medical Necessity - Tobacco Use Smoking Status: Former smoker Assessment/Plan All Active Problems (Last Updated 04/29/18 @ 15:18 by Cee Mcnulty DO) Acute fall (Acute) Fracture of femur, distal, left, closed (Acute) Debility (Acute) Acute exacerbation of chronic obstructive pulmonary disease (COPD) (Resolved) Parainfluenza virus bronchopneumonia (Resolved) History of MRSA infection (Resolved) Non-healing wound of lower extremity (Acute) Allergic reaction due to correct medicinal substance properly administered (Resolved) Atrial fibrillation with RVR (Resolved) CAP (community acquired pneumonia) (Resolved) Cellulitis of lower leg (Resolved) Influenza B (Resolved) Laceration of head (Resolved) Metabolic alkalosis (Resolved) Pneumonia (Resolved) Syncope and collapse (Resolved) Patient is a 63-year-old lady who slipped on ice injuring her left knee imaging studies obtained on admission demonstrated Comminuted and dorsally angulated fracture of the distal femur, involving the total knee arthroplasty. Admitted to regular nursing floor with consultation placed to orthopedic surgery patient underwent surgical intervention on 12/04/2018 patient was transferred to the inpatient rehab unit once her medical condition stabilized. 1. Acute comminuted, displaced, closed fracture of the distal femoral diaphysis, proximal to the femoral prosthesis secondary to fall. Patient underwent Revision left total knee replacement entire femoral and tibial component on 12/04/[address] Jenkins transferred to the inpatient rehab unit once her medical condition stabilized. Patient progress is rather been slow. 2. Paroxysmal atrial fibrillation rate controlled on systemic anticoagulation with Eliquis resumed on 12/05/2017 3. Anemia secondary to acute blood loss anemia following surgery monitoring H&H and has not require blood transfusion 4. COPD without acute exacerbation did continue patient home regimen 5. Obstructive sleep apnea 6. Morbid obesity with BMI of 41.6 7. Hypertension-blood pressure controlled, home medications continued with dose adjustment as needed 8. Depression with anxiety 9. Chronic alcoholic cirrhosis stable 10. DVT prophylaxis on Eliquis Code Visit Inpatient E&M: 49397 Subs Hosp L2
[2018-12-20 07:50] VITALS: BP 103/56; PULSE 67; RESP 16; TEMP 36.6; O2SAT 95
[2018-12-20 09:15] VITALS: PULSE 72
[2018-12-20] MEDS: Furosemide 40 MG Tablet PO ×2 (09:15→18:08)
[2018-12-20] MEDS: APIXABAN 5 MG TABLET PO ×2 (09:15→21:30)
[2018-12-20] MEDS: Metoprolol Tartrate 25 MG Tablet 75 MG PO (09:15)
[2018-12-20] MEDS: Oxybutynin 5 MG Tablet 10 MG PO ×2 (09:15→21:32)
[2018-12-20] MEDS: dilTIAZem CD 240 MG Capsule PO (09:15)
[2018-12-20] MEDS: FLUoxetine 20 MG Capsule 40 MG PO (09:16)
[2018-12-20] MEDS: Gabapentin 600 MG Tablet PO ×2 (09:16→21:32)
[2018-12-20] MEDS: Senna/Docusate Sodium 1 Tablet 2 TABLET PO ×2 (09:16→21:30)
[2018-12-20] MEDS: Ascorbic Acid 500 MG Tablet 1500 MG PO (09:17)
--- NOTE | 2018-12-20 10:50 | PCM.PN.NEU ---
Patient Problems: Active and Suspected Problems (Last Updated 04/29/18 @ 15:18 by Cee Mcnulty DO) Debility (Acute) Subjective: Staffed in team meeting. Questions are answered. With physical therapy she is standby assistance and has improved walking distance and improved fatigue. Occupational therapy notes improvement with respect to personal care issues. She was somewhat sleepy this morning apparently her trazodone was stopped again and she was placed back on Ambien. No issues from a social work standpoint updating Medicare pending. - Physical Exam General: Alert, Oriented x3, Cooperative, No apparent distress Neurological: Cranial nerves II-XII grossly intact Psych/Mental Status: Normal Affect, Alert and oriented to time, place, person, mood and affect Vital Signs Temp Pulse Resp BP Pulse Ox 36.6 C 72 16 103/56 L 95 12/20/18 07:50 12/20/18 09:15 12/20/18 07:50 12/20/18 07:50 12/20/18 07:50 Oxygen Flow Rate (L/min) 2 Oxygen Delivery Method Room Air Weight: 123.37 kg Body Mass Index (BMI) 41.3 Intake and Output for Last 24 Hours 12/18/18 12/19/18 12/20/18 23:59 23:59 23:59 Intake Total 600 / 600 Balance 600 / 600 POC Glucose 12/20/18 06:54 POC Glucose 96 Current Medications Generic Name Dose Route Start Last Admin Trade Name Freq PRN Reason Stop Dose Admin Acetaminophen 650 mg 12/07/18 20:04 12/15/18 10:34 Tylenol PO 650 mg Q6H PRN PRN Administration Mild Pain (scale 0-3)/T>100.7 Hydrocodone Bitart/Acetaminophen 1 tablet 12/10/18 10:41 12/19/18 21:20 [place] 5mg-325mg PO 1 tablet Q6H PRN PRN Administration SEVERE PAIN (6-10/10) Apixaban 5 mg 12/07/18 22:00 12/20/18 09:15 Eliquis PO 5 mg BID [facility] Administration Ascorbic Acid 1,500 mg 12/08/18 10:00 12/20/18 09:17 Vitamin C PO 1,500 mg DAILY [facility] Administration Atorvastatin Calcium 20 mg 12/07/18 22:00 12/19/18 21:21 Lipitor PO 20 mg QHS [facility] Administration Baclofen 5 mg 12/09/18 14:00 12/20/18 06:27 Lioresal PO 5 mg TID [facility] Administration Bisacodyl 10 mg 12/07/18 20:04 12/09/18 01:56 Dulcolax RECTAL 10 mg DAILY PRN PRN Administration Constipation Calamine/Phenol 1 applic 12/10/18 22:00 12/20/18 06:28 Calmoseptine Ointment TOPICAL 1 applicatio BID@0600,2200 [facility] Administration Protocol Diltiazem HCl 240 mg 12/08/18 10:00 12/20/18 09:15 Cardizem Cd PO 240 mg DAILY [facility] Administration Diphenhydramine HCl 25 mg 12/16/18 09:55 Benadryl PO TID PRN PRN ITCHING Ergocalciferol 50,000 unit 12/12/18 10:00 12/19/18 08:46 Vitamin D PO 50,000 unit LUDWIG [facility] Administration Fluoxetine HCl 40 mg 12/08/18 10:00 12/20/18 09:16 Prozac PO 40 mg DAILY [facility] Administration Furosemide 40 mg 12/08/18 10:00 12/20/18 09:15 Lasix PO 40 mg BIDLX [facility] Administration Gabapentin 600 mg 12/07/18 22:00 12/20/18 09:16 Neurontin PO 600 mg BID [facility] Administration Lamotrigine 100 mg 12/07/18 22:00 12/19/18 21:21 Lamictal PO 100 mg QHS [facility] Administration Magnesium Hydroxide 30 ml 12/07/18 20:06 12/08/18 19:58 Milk Of Magnesia PO 30 ml .PRN X 1 PRN Administration Constipation Metoprolol Tartrate 75 mg 12/16/18 22:00 12/20/18 09:15 Lopressor (Beta Danielle) PO 75 mg BID [facility] Administration Oxybutynin Chloride 10 mg 12/07/18 22:00 12/20/18 09:15 Ditropan PO 10 mg BID [facility] Administration Polyethylene Glycol 17 gm 12/08/18 10:00 12/20/18 09:16 Miralax PO Not Given DAILY [facility] Potassium Chloride 40 meq 12/08/18 08:00 12/20/18 09:14 K-Dur PO 40 meq BIDCM [facility] Administration Senna/Docusate Sodium 2 tablet 12/07/18 22:00 12/20/18 09:16 Senokot-S, Sena-Colace PO 2 tablet BID [facility] Administration Trazodone HCl 25 mg 12/20/18 22:00 Desyrel PO QHS [facility] Medical Necessity - Tobacco Use Smoking Status: Former smoker Assessment/Plan All Active Problems (Last Updated 04/29/18 @ 15:18 by Cee Mcnulty DO) Acute fall (Acute) Fracture of femur, distal, left, closed (Acute) Debility (Acute) Acute exacerbation of chronic obstructive pulmonary disease (COPD) (Resolved) Parainfluenza virus bronchopneumonia (Resolved) History of MRSA infection (Resolved) Non-healing wound of lower extremity (Acute) Allergic reaction due to correct medicinal substance properly administered (Resolved) Atrial fibrillation with RVR (Resolved) CAP (community acquired pneumonia) (Resolved) Cellulitis of lower leg (Resolved) Influenza B (Resolved) Laceration of head (Resolved) Metabolic alkalosis (Resolved) Pneumonia (Resolved) Syncope and collapse (Resolved) Per notes: The patient is a 63 year old F with PMH HTN, Afib on Eliquis, LUIS, morbid obesity, COPD, GERD, chronic non healing ulcer bilateral LE, Lumbar spondylosis with lumbar radiculopathy and degenerative disc disease, depression/anxiety admitted to [facility] on 12/07/18 with debility s/p fall and left distal femur closed fracture s/p revision total left knee replacement done by Dr. Jenkins on 12/04/18, for >3 hrs therapy daily with a goal of returning back home at or near her prior level of functional independence. Per patient she fell on ice on 12/03/18, had femur fracture, per patient she hit her back of the head also, but denies any LOC, had some double vision since but has improved, denies any MARINO. Lives with her BF and brother in an apartment, has 2 steps to go into the house, does not use cane or walker at baseline, denies any frequent falls, does drive and does not need any assistance for her ADLs at baseline. Per patient she has chronic low back pain, does go to pain management for the same. Has occasional radicular symptoms but denies the same at present. Impression: Debility status post left femur fracture status post ORIF and revision of left knee replacement. Goal of rehab is jainism of prior level of functional independence. Plan -PT for gait stability and balance -OT for ADLs -Analgesics PRN -Bowel protocol -Left distal closed femur fracture s/p revision total left knee replacement- further postsurgical management per orthopedic Dr. Jenkins's recommendation. Per Dr. Jenkins's further recommendation doxycycline was restarted and it is to be given for 14 days. WBCs 9.1 (12/10/2018). 12/16: Stable. Incision is clear. -Orthostatic vitals were positive- maintain hydration, compression stockings as needed. 12/16: Stable. -Dizziness and light headedness per PT/OT after patient walks a few steps- probably orthostatic but will re-check CT head w/o contrast as she had hit the back of the head when she fell on 12/01/18 per patient. Per patient she does not want to get MRI brain due to claustrophobia. will do CT head for possible post-concussion syndrome. 12/16: No recurrence. Vertigo has recurred. We will do a CTA of her head and neck. Patient cannot have an MRI due to claustrophobia. ?Muscle spasms?patient was started on baclofen 10 mg p.o. [address] Harris about a month ago. Per patient baclofen has not helped much. decreased to baclofen to 5 mg p.o. 3 times daily. 12/16: Resolved this may be due to overmedication with narcotics ?We will discontinue trazodone as PT/OT thinks patient is too sleepy at times. Stopping trazodone has helped. Patient has asked to restart trazodone at 50 mg we will try this and see. Somehow the trazodone was discontinued and she is back on Ambien. I have discussed this with the nursing staff. Apparently the Ambien made her too sleepy this morning we will try 25 mg of trazodone at bedtime. She normally takes trazodone at home and this appears to have worked well for her. -HTN-on Lasix, Metoprolol and Diltiazem. BP controlled -HLD- on atorvastatin -Afib-On Eliquis 5mg PO BID. Rate controlled. -Chronic low back pain- on gabapentin 600 mg PO BID and Baclofen -Anxiety/mood d/o- on Prozac and Lamictal 100 mg PO q hs. 12/16: Stable -Urinary disturbances- on Ditropan 12/16: Stable -GI/DVT prophylaxis- ON Eliquis -Fall precautions -Further medical management per hospitalist recommendation. Hospitalist consult -Follow with PCP, Orthopedic surgeon Dr. Jenkins, and Cardiology as outpatient after discharge.
--- NOTE | 2018-12-20 10:55 | RAD_ITS ---
STUDY: X-RAY - LEFT FEMUR REASON FOR STUDY: Female, 63 years old. TECHNIQUE: 2 view(s) and 6 images of the femur. COMPARISON: Comparison is made with prior examination dated December 01, 2018. FINDINGS: The patient is status post resection of the distal femur with replacement of a long stem femoral component of a total knee replacement. There is good alignment. RAD/Femur Min 2 Views IMPRESSION: Status post resection of the distal portion of the femur with long stem femoral component of a knee prosthesis. There is good alignment. Postoperative soft tissue changes. Electronically Signed: Dwight Ledbetter MD at 13:03 EST , Service support ,
[2018-12-20] MEDS: HYDROcodone Bitartrate/Apap 5/325 Tablet PO (11:13)
--- NOTE | 2018-12-20 15:09 | CASEMGMT ---
Team meeting held today with pt present. Pt continues to participate in PT and OT and is progressing. No d/c date has been set at this time. Pt plans to return home with her boyfriend and brother. Pt states they are unable to assist her in her home. Insurance update is due tomorrow 12/21/18. Pt is aware and made aware that continued stay is not guaranteed. SW offered to update family on team meeting and pt declined stating she will notify them when they visit. Will continue with treatment plan at this time and reteam next week. TAVIA Ramirez
--- NOTE | 2018-12-20 15:17 | NURSING ---
wound photo: left knee
--- NOTE | 2018-12-20 15:18 | NURSING ---
wound photo: left posterolateral lower leg
[2018-12-20 21:30] VITALS: BP 96/64; PULSE 73; PULSE 93; RESP 18; TEMP 37.1; O2SAT 98
[2018-12-20] MEDS: lamoTRIgine 100 MG Tablet PO (21:32)
[2018-12-20] MEDS: Atorvastatin Calcium 20 MG Tablet PO (21:32)
[2018-12-20] MEDS: traZODone 50 MG Tablet 25 MG PO (21:33)
[2018-12-20 21:36] VITALS: BP 96/64; PULSE 73
[2018-12-21] MEDS: Menthol/Lanolin/Calamine/Znox 113 GM Tube 1 APPLIC TOPICAL ×2 (06:06→22:15)
[2018-12-21] MEDS: Baclofen 10 MG Tablet 5 MG PO ×3 (06:06→22:15)
[2018-12-21] MEDS: Ascorbic Acid 500 MG Tablet 1500 MG PO (07:56)
[2018-12-21] MEDS: FLUoxetine 20 MG Capsule 40 MG PO (07:57)
[2018-12-21] MEDS: Gabapentin 600 MG Tablet PO ×2 (07:57→22:14)
[2018-12-21] MEDS: Oxybutynin 5 MG Tablet 10 MG PO ×2 (07:57→22:15)
[2018-12-21] MEDS: APIXABAN 5 MG TABLET PO ×2 (07:57→22:15)
[2018-12-21] MEDS: Senna/Docusate Sodium 1 Tablet 2 TABLET PO ×2 (07:57→22:17)
[2018-12-21 09:12] VITALS: BP 103/65; PULSE 90; RESP 18; TEMP 36.5; O2SAT 97
[2018-12-21 09:14] VITALS: BP 103/65; PULSE 90
[2018-12-21] MEDS: Metoprolol Tartrate 25 MG Tablet 75 MG PO ×2 (09:14→22:16)
[2018-12-21] MEDS: dilTIAZem CD 240 MG Capsule PO (09:15)
[2018-12-21] MEDS: Furosemide 40 MG Tablet PO ×2 (09:15→17:09)
--- NOTE | 2018-12-21 11:30 | PN.NEURO_ITS ---
Patient Problems: Active and Suspected Problems (Last Updated 04/29/18 @ 15:18 by Cee Mcnulty DO) Debility (Acute) Subjective: No new complaints. Tolerating therapies. No GI or complaints. Her knee immobilizer has been removed and she is experiencing knee pain but she feels that she is moving forward otherwise. Her dose of trazodone was reduced to 25 and she is much better today. - Physical Exam General: Alert, Oriented x3 HEENT: Atraumatic, PERRLA, EOMI Neurological: Cranial nerves II-XII grossly intact Psych/Mental Status: Normal Affect, Alert and oriented to time, place, person, mood and affect Vital Signs Temp Pulse Resp BP Pulse Ox 36.5 C L 90 18 103/65 97 12/21/18 09:12 12/21/18 09:14 12/21/18 09:12 12/21/18 09:14 12/21/18 09:12 Oxygen Flow Rate (L/min) 2 Oxygen Delivery Method Room Air Weight: 123.37 kg Body Mass Index (BMI) 41.3 Intake and Output for Last 24 Hours 12/19/18 12/20/18 12/21/18 23:59 23:59 23:59 Intake Total 440 / 440 360 / 360 Balance 440 / 440 360 / 360 Medical Necessity - Tobacco Use Smoking Status: Former smoker Assessment/Plan All Active Problems (Last Updated 04/29/18 @ 15:18 by Cee Mcnulty DO) Acute fall (Acute) Fracture of femur, distal, left, closed (Acute) Debility (Acute) Acute exacerbation of chronic obstructive pulmonary disease (COPD) (Resolved) Parainfluenza virus bronchopneumonia (Resolved) History of MRSA infection (Resolved) Non-healing wound of lower extremity (Acute) Allergic reaction due to correct medicinal substance properly administered (Resolved) Atrial fibrillation with RVR (Resolved) CAP (community acquired pneumonia) (Resolved) Cellulitis of lower leg (Resolved) Influenza B (Resolved) Laceration of head (Resolved) Metabolic alkalosis (Resolved) Pneumonia (Resolved) Syncope and collapse (Resolved) Per notes: The patient is a 63 year old F with PMH HTN, Afib on Eliquis, LUIS, morbid obesity, COPD, GERD, chronic non healing ulcer bilateral LE, Lumbar spondylosis with lumbar radiculopathy and degenerative disc disease, depression/anxiety admitted to [facility] on 12/07/18 with debility s/p fall and left distal femur closed fracture s/p revision total left knee replacement done by Dr. Jenkins on 12/04/18, for >3 hrs therapy daily with a goal of returning back home at or near her prior level of functional independence. Per patient she fell on ice on 12/03/18, had femur fracture, per patient she hit her back of the head also, but denies any LOC, had some double vision since but has improved, denies any MARINO. Lives with her BF and brother in an apartment, has 2 steps to go into the house, does not use cane or walker at baseline, denies any frequent falls, does drive and does not need any assistance for her ADLs at baseline. Per patient she has chronic low back pain, does go to pain management for the same. Has occasional radicular symptoms but denies the same at present. Impression: Debility status post left femur fracture status post ORIF and revision of left knee replacement. Goal of rehab is druze of prior level of functional independence. Plan -PT for gait stability and balance -OT for ADLs -Analgesics PRN -Bowel protocol -Left distal closed femur fracture s/p revision total left knee replacement- further postsurgical management per orthopedic Dr. Jenkins's recommendation. Per Dr. Jenkins's further recommendation doxycycline was restarted and it is to be given for 14 days. WBCs 9.1 (12/10/2018). 12/16: Stable. Incision is clear. 12/21: Stable -Orthostatic vitals were positive- maintain hydration, compression stockings as needed. 12/16: Stable. 12/21: Resolved -Dizziness and light headedness per PT/OT after patient walks a few steps- probably orthostatic but will re-check CT head w/o contrast as she had hit the back of the head when she fell on 12/01/18 per patient. Per patient she does not want to get MRI brain due to claustrophobia. will do CT head for possible post- concussion syndrome. 12/16: No recurrence. Vertigo has recurred. We will do a CTA of her head and neck. Patient cannot have an MRI due to claustrophobia. 12/21: None recurrent. She has a small PICA aneurysm, 8 mm which she is aware of and should be followed periodically with repeat scans. ?Muscle spasms?patient was started on baclofen 10 mg p.o. [address] Harris about a month ago. Per patient baclofen has not helped much. decreased to baclofen to 5 mg p.o. 3 times daily. 12/16: Resolved this may be due to overmedication with narcotics ?We will discontinue trazodone as PT/OT thinks patient is too sleepy at times. Stopping trazodone has helped. Patient has asked to restart trazodone at 50 mg we will try this and see. Somehow the trazodone was discontinued and she is back on Ambien. I have discussed this with the nursing staff. Apparently the Ambien made her too sleepy this morning we will try 25 mg of trazodone at bedtime. She normally takes trazodone at home and this appears to have worked well for her. -HTN-on Lasix, Metoprolol and Diltiazem. BP controlled -HLD- on atorvastatin -Afib-On Eliquis 5mg PO BID. Rate controlled. -Chronic low back pain- on gabapentin 600 mg PO BID and Baclofen 12/21: Controlled -Anxiety/mood d/o- on Prozac and Lamictal 100 mg PO q hs. 12/16: Stable -Urinary disturbances- on Ditropan 12/16: Stable -GI/DVT prophylaxis- ON Eliquis -Fall precautions -Further medical management per hospitalist recommendation. Hospitalist consult -Follow with PCP, Orthopedic surgeon Dr. Jenkins, and Cardiology as outpatient after discharge.
--- NOTE | 2018-12-21 12:27 | CASEMGMT ---
Insurance Clinical information sent. Pending continued stay approval at this time. Auth#[id number] Waldemar ESTRELLA, CAMILA
[2018-12-21] MEDS: HYDROcodone Bitartrate/Apap 5/325 Tablet PO (13:14)
[2018-12-21] MEDS: traZODone 50 MG Tablet 25 MG PO (22:14)
[2018-12-21] MEDS: Atorvastatin Calcium 20 MG Tablet PO (22:14)
[2018-12-21 22:15] VITALS: BP 100/68; PULSE 76; RESP 16; RESP 94; TEMP 36.8; O2SAT 94
[2018-12-21] MEDS: lamoTRIgine 100 MG Tablet PO (22:15)
[2018-12-21 22:16] VITALS: BP 100/68; PULSE 76
--- NOTE | 2018-12-22 01:39 | NURSING ---
Reviewed and agree with [employer] documentation and FIMs charting.
[2018-12-22] MEDS: HYDROcodone Bitartrate/Apap 5/325 Tablet PO ×2 (06:33→21:40)
[2018-12-22] MEDS: Menthol/Lanolin/Calamine/Znox 113 GM Tube 1 APPLIC TOPICAL ×2 (06:34→21:33)
[2018-12-22] MEDS: Baclofen 10 MG Tablet 5 MG PO ×3 (06:36→21:36)
[2018-12-22 07:00] VITALS: TEMP 36.5
[2018-12-22] MEDS: Oxybutynin 5 MG Tablet 10 MG PO ×2 (09:01→21:35)
[2018-12-22] MEDS: FLUoxetine 20 MG Capsule 40 MG PO (09:02)
[2018-12-22] MEDS: Gabapentin 600 MG Tablet PO ×2 (09:02→21:37)
[2018-12-22] MEDS: Ascorbic Acid 500 MG Tablet 1500 MG PO (09:02)
[2018-12-22] MEDS: APIXABAN 5 MG TABLET PO ×2 (09:04→21:35)
[2018-12-22 10:26] VITALS: BP 101/60; PULSE 86; RESP 18; TEMP 36.6; O2SAT 96
[2018-12-22 10:28] VITALS: PULSE 86
[2018-12-22] MEDS: dilTIAZem CD 240 MG Capsule PO (10:28)
[2018-12-22] MEDS: Furosemide 40 MG Tablet PO ×2 (10:28→17:08)
[2018-12-22] MEDS: Metoprolol Tartrate 25 MG Tablet 75 MG PO (10:28)
[2018-12-22] MEDS: Acetaminophen 325 MG Tablet 650 MG PO (11:28)
--- NOTE | 2018-12-22 13:42 | PCM.PN.HOSP ---
Patient Problems: Active and Suspected Problems (Last Updated 04/29/18 @ 15:18 by Cee Mcnulty DO) Debility (Acute) Subjective: Patient seen tolerating physical therapy well. Objective: GENERAL: cooperative HEENT: Atraumatic; moist oral mucosa EYES; Anicteric, Normal Conjunctiva NECK; supple, normal thyroid, no distended JVD. RESPIRATORY: Diminished to auscultation bilaterally, CARDIOVASCULAR: Regular S1 S2, no audible murmurs GI: soft, non-tender, normoactive bowel sounds, : No Renal angle tenderness; EXTREMITIES: No edema, no clubbing, no cyanosis. MUSCULOSKELETAL: left Knee surgical dressing NEURO: Awake; no lateralizing signs. SKIN: No Rash PSYCH; Normal affect Vitals/I&O's: Vital Signs Temp Pulse Resp BP Pulse Ox 97.9 F 86 18 101/60 96 12/22/18 10:26 12/22/18 10:28 12/22/18 10:26 12/22/18 10:26 12/22/18 10:26 Oxygen Flow Rate (L/min) 2 Oxygen Delivery Method Room Air Weight: 123.37 kg Body Mass Index (BMI) 41.3 Intake and Output for Last 24 Hours 12/20/18 12/21/18 12/22/18 23:59 23:59 23:59 Intake Total 440 / 440 940 / 940 360 / 360 Balance 440 / 440 940 / 940 360 / 360 Current Medications Acetaminophen (Tylenol) 650 mg PO Q6H PRN PRN PRN Reason: Mild Pain (scale 0-3)/T>100.7 Last Admin: 12/22/18 11:28 Dose: 650 mg Hydrocodone Bitart/Acetaminophen ([place] 5mg-325mg) 1 tablet PO Q6H PRN PRN PRN Reason: SEVERE PAIN (6-10/10) Last Admin: 12/22/18 06:33 Dose: 1 tablet Apixaban (Eliquis) 5 mg PO BID [facility] Last Admin: 12/22/18 09:04 Dose: 5 mg Ascorbic Acid (Vitamin C) 1,500 mg PO DAILY [facility] Last Admin: 12/22/18 09:02 Dose: 1,500 mg Atorvastatin Calcium (Lipitor) 20 mg PO QHS [facility] Last Admin: 12/21/18 22:14 Dose: 20 mg Baclofen (Lioresal) 5 mg PO TID [facility] Last Admin: 12/22/18 13:16 Dose: 5 mg Bisacodyl (Dulcolax) 10 mg RECTAL DAILY PRN PRN PRN Reason: Constipation Last Admin: 12/09/18 01:56 Dose: 10 mg Calamine/Phenol (Calmoseptine Ointment) 1 applic TOPICAL BID@0600,2200 [facility]; Protocol Last Admin: 12/22/18 06:34 Dose: 1 applicatio Diltiazem HCl (Cardizem Cd) 240 mg PO DAILY [facility] Last Admin: 12/22/18 10:28 Dose: 240 mg Diphenhydramine HCl (Benadryl) 25 mg PO TID PRN PRN PRN Reason: ITCHING Ergocalciferol (Vitamin D) 50,000 unit PO LUDWIG [facility] Last Admin: 12/19/18 08:46 Dose: 50,000 unit Fluoxetine HCl (Prozac) 40 mg PO DAILY [facility] Last Admin: 12/22/18 09:02 Dose: 40 mg Furosemide (Lasix) 40 mg PO BIDLX [facility] Last Admin: 12/22/18 10:28 Dose: 40 mg Gabapentin (Neurontin) 600 mg PO BID [facility] Last Admin: 12/22/18 09:02 Dose: 600 mg Lamotrigine (Lamictal) 100 mg PO QHS [facility] Last Admin: 12/21/18 22:15 Dose: 100 mg Magnesium Hydroxide (Milk Of Magnesia) 30 ml PO .PRN X 1 PRN PRN Reason: Constipation Last Admin: 12/08/18 19:58 Dose: 30 ml Metoprolol Tartrate (Lopressor (Beta Danielle)) 75 mg PO BID [facility] Last Admin: 12/22/18 10:28 Dose: 75 mg Oxybutynin Chloride (Ditropan) 10 mg PO BID [facility] Last Admin: 12/22/18 09:01 Dose: 10 mg Polyethylene Glycol (Miralax) 17 gm PO DAILY [facility] Last Admin: 12/22/18 09:24 Dose: Not Given [facility] Admin: 12/22/18 09:01 Dose: 40 meq Senna/Docusate Sodium (Senokot-S, Sena-Colace) 2 tablet PO BID [facility] Last Admin: 12/22/18 09:24 Dose: Not Given Trazodone HCl (Desyrel) 25 mg PO QHS [facility] Last Admin: 12/21/18 22:14 Dose: 25 mg Medical Necessity - Tobacco Use Smoking Status: Former smoker Assessment/Plan All Active Problems (Last Updated 04/29/18 @ 15:18 by Cee Mcnulty DO) Acute fall (Acute) Fracture of femur, distal, left, closed (Acute) Debility (Acute) Acute exacerbation of chronic obstructive pulmonary disease (COPD) (Resolved) Parainfluenza virus bronchopneumonia (Resolved) History of MRSA infection (Resolved) Non-healing wound of lower extremity (Acute) Allergic reaction due to correct medicinal substance properly administered (Resolved) Atrial fibrillation with RVR (Resolved) CAP (community acquired pneumonia) (Resolved) Cellulitis of lower leg (Resolved) Influenza B (Resolved) Laceration of head (Resolved) Metabolic alkalosis (Resolved) Pneumonia (Resolved) Syncope and collapse (Resolved) Patient is a 63-year-old lady who slipped on ice injuring her left knee imaging studies obtained on admission demonstrated Comminuted and dorsally angulated fracture of the distal femur, involving the total knee arthroplasty. Admitted to regular nursing floor with consultation placed to orthopedic surgery patient underwent surgical intervention on 12/04/2018 patient was transferred to the inpatient rehab unit once her medical condition stabilized. 1. Acute comminuted, displaced, closed fracture of the distal femoral diaphysis, proximal to the femoral prosthesis secondary to fall. Patient underwent Revision left total knee replacement entire femoral and tibial component on 12/04/[address] Jenkins transferred to the inpatient rehab unit once her medical condition stabilized. Patient progress is rather been slow. 2. Paroxysmal atrial fibrillation rate controlled on systemic anticoagulation with Eliquis resumed on 12/05/2017 3. Anemia secondary to acute blood loss anemia following surgery monitoring H&H and has not require blood transfusion 4. COPD without acute exacerbation did continue patient home regimen 5. Obstructive sleep apnea 6. Morbid obesity with BMI of 41.6 7. Hypertension-blood pressure controlled, home medications continued with dose adjustment as needed 8. Depression with anxiety 9. Chronic alcoholic cirrhosis stable 10. DVT prophylaxis on Eliquis Code Visit Inpatient E&M: 88974 Subs Hosp L2
--- NOTE | 2018-12-22 14:26 | CASEMGMT ---
Insurance Continued stay approved with next update due on 12/27/18. Auth#[id number] Waldemar ESTRELLA, CAMILA
[2018-12-22 21:15] VITALS: BP 94/70; PULSE 69
[2018-12-22] MEDS: traZODone 50 MG Tablet 25 MG PO (21:34)
[2018-12-22] MEDS: lamoTRIgine 100 MG Tablet PO (21:35)
[2018-12-22] MEDS: Atorvastatin Calcium 20 MG Tablet PO (21:37)
[2018-12-22 22:00] VITALS: BP 94/70; PULSE 69; RESP 18; TEMP 36.8; O2SAT 97
[2018-12-23] MEDS: Baclofen 10 MG Tablet 5 MG PO ×3 (06:46→22:01)
[2018-12-23] MEDS: Menthol/Lanolin/Calamine/Znox 113 GM Tube 1 APPLIC TOPICAL ×2 (06:46→22:01)
[2018-12-23 07:43] VITALS: BP 96/58; PULSE 78; RESP 18; TEMP 36.8; O2SAT 96
[2018-12-23] MEDS: Gabapentin 600 MG Tablet PO ×2 (07:46→22:02)
[2018-12-23] MEDS: Furosemide 40 MG Tablet PO ×2 (07:46→17:16)
[2018-12-23] MEDS: APIXABAN 5 MG TABLET PO ×2 (07:46→22:01)
[2018-12-23] MEDS: Ascorbic Acid 500 MG Tablet 1500 MG PO (07:46)
[2018-12-23] MEDS: FLUoxetine 20 MG Capsule 40 MG PO (07:46)
[2018-12-23] MEDS: Oxybutynin 5 MG Tablet 10 MG PO ×2 (07:46→22:01)
[2018-12-23 09:06] VITALS: BP 121/56; PULSE 96
[2018-12-23 09:07] VITALS: PULSE 96
[2018-12-23] MEDS: dilTIAZem CD 240 MG Capsule PO (09:07)
[2018-12-23] MEDS: Metoprolol Tartrate 25 MG Tablet 75 MG PO ×2 (09:07→22:04)
[2018-12-23] MEDS: HYDROcodone Bitartrate/Apap 5/325 Tablet PO ×2 (12:39→22:24)
[2018-12-23 22:00] VITALS: BP 108/64; PULSE 70; RESP 18; TEMP 36.8; O2SAT 95
[2018-12-23] MEDS: lamoTRIgine 100 MG Tablet PO (22:01)
[2018-12-23] MEDS: traZODone 50 MG Tablet 25 MG PO (22:01)
[2018-12-23] MEDS: Atorvastatin Calcium 20 MG Tablet PO (22:02)
[2018-12-23 22:04] VITALS: BP 108/64; PULSE 70
--- NOTE | 2018-12-24 02:19 | NURSING ---
REVIEWED AND AGREE WITH NARCOTICS AND VICE DETECTIVE'S FIM AND HANDOFF CHARTING.
[2018-12-24] MEDS: Baclofen 10 MG Tablet 5 MG PO ×3 (05:52→21:05)
[2018-12-24] MEDS: Menthol/Lanolin/Calamine/Znox 113 GM Tube 1 APPLIC TOPICAL ×2 (05:53→21:04)
[2018-12-24 07:42] VITALS: BP 102/76; PULSE 71; RESP 16; TEMP 36.6; O2SAT 95
[2018-12-24] MEDS: Ascorbic Acid 500 MG Tablet 1500 MG PO (07:43)
[2018-12-24] MEDS: APIXABAN 5 MG TABLET PO ×2 (07:43→21:05)
[2018-12-24] MEDS: FLUoxetine 20 MG Capsule 40 MG PO (07:43)
[2018-12-24] MEDS: Oxybutynin 5 MG Tablet 10 MG PO ×2 (07:43→21:05)
[2018-12-24 07:44] VITALS: PULSE 71
[2018-12-24] MEDS: Metoprolol Tartrate 25 MG Tablet 75 MG PO (07:44)
[2018-12-24] MEDS: dilTIAZem CD 240 MG Capsule PO (07:44)
[2018-12-24] MEDS: Furosemide 40 MG Tablet PO ×2 (07:44→16:58)
[2018-12-24] MEDS: Gabapentin 600 MG Tablet PO ×2 (07:44→21:06)
[2018-12-24] MEDS: HYDROcodone Bitartrate/Apap 5/325 Tablet PO ×2 (08:11→21:05)
--- NOTE | 2018-12-24 13:21 | PCM.PN.NEU ---
Patient Problems: Active and Suspected Problems (Last Updated 04/29/18 @ 15:18 by Cee Mcnulty DO) Debility (Acute) Subjective: asks about low bp and ongoing bp issues - Physical Exam General: Alert, Oriented x3, Cooperative, No apparent distress HEENT: Atraumatic, PERRLA, EOMI Neurological: Cranial nerves II-XII grossly intact Psych/Mental Status: Normal Affect, Alert and oriented to time, place, person, mood and affect Vital Signs Temp Pulse Resp BP Pulse Ox 36.6 C 71 16 102/76 95 12/24/18 07:42 12/24/18 07:44 12/24/18 07:42 12/24/18 07:42 12/24/18 07:42 Oxygen Flow Rate (L/min) 2 Oxygen Delivery Method Room Air Weight: 120.769 kg Body Mass Index (BMI) 41.3 Intake and Output for Last 24 Hours 12/22/18 12/23/18 12/24/18 23:59 23:59 23:59 Intake Total 1080 / 1080 Balance 1080 / 1080 Medical Necessity - Tobacco Use Smoking Status: Former smoker Assessment/Plan All Active Problems (Last Updated 04/29/18 @ 15:18 by Cee Mcnulty DO) Acute fall (Acute) Fracture of femur, distal, left, closed (Acute) Debility (Acute) Acute exacerbation of chronic obstructive pulmonary disease (COPD) (Resolved) Parainfluenza virus bronchopneumonia (Resolved) History of MRSA infection (Resolved) Non-healing wound of lower extremity (Acute) Allergic reaction due to correct medicinal substance properly administered (Resolved) Atrial fibrillation with RVR (Resolved) CAP (community acquired pneumonia) (Resolved) Cellulitis of lower leg (Resolved) Influenza B (Resolved) Laceration of head (Resolved) Metabolic alkalosis (Resolved) Pneumonia (Resolved) Syncope and collapse (Resolved) Per notes: The patient is a 63 year old F with PMH HTN, Afib on Eliquis, LUIS, morbid obesity, COPD, GERD, chronic non healing ulcer bilateral LE, Lumbar spondylosis with lumbar radiculopathy and degenerative disc disease, depression/anxiety admitted to [facility] on 12/07/18 with debility s/p fall and left distal femur closed fracture s/p revision total left knee replacement done by Dr. Jenkins on 12/04/18, for >3 hrs therapy daily with a goal of returning back home at or near her prior level of functional independence. Per patient she fell on ice on 12/03/18, had femur fracture, per patient she hit her back of the head also, but denies any LOC, had some double vision since but has improved, denies any MARINO. Lives with her BF and brother in an apartment, has 2 steps to go into the house, does not use cane or walker at baseline, denies any frequent falls, does drive and does not need any assistance for her ADLs at baseline. Per patient she has chronic low back pain, does go to pain management for the same. Has occasional radicular symptoms but denies the same at present. Impression: Debility status post left femur fracture status post ORIF and revision of left knee replacement. Goal of rehab is [facility] of prior level of functional independence. Plan -PT for gait stability and balance -OT for ADLs -Analgesics PRN -Bowel protocol -Left distal closed femur fracture s/p revision total left knee replacement- further postsurgical management per orthopedic Dr. Jenkins's recommendation. Per Dr. Jenkins's further recommendation doxycycline was restarted and it is to be given for 14 days. WBCs 9.1 (12/10/2018). 12/16: Stable. Incision is clear. 12/21: Stable -Orthostatic vitals were positive- maintain hydration, compression stockings as needed. 2: Stable. 12/21: Resolved -Dizziness and light headedness per PT/OT after patient walks a few steps- probably orthostatic but will re-check CT head w/o contrast as she had hit the back of the head when she fell on 12/01/18 per patient. Per patient she does not want to get MRI brain due to claustrophobia. will do CT head for possible post-concussion syndrome. 2: No recurrence. Vertigo has recurred. We will do a CTA of her head and neck. Patient cannot have an MRI due to claustrophobia. 12/21: None recurrent. She has a small PICA aneurysm, 8 mm which she is aware of and should be followed periodically with repeat scans. ?Muscle spasms?patient was started on baclofen 10 mg p.o. [address] Harris about a month ago. Per patient baclofen has not helped much. decreased to baclofen to 5 mg p.o. 3 times daily. 12/16: Resolved this may be due to overmedication with narcotics ?We will discontinue trazodone as PT/OT thinks patient is too sleepy at times. Stopping trazodone has helped. Patient has asked to restart trazodone at 50 mg we will try this and see. Somehow the trazodone was discontinued and she is back on Ambien. I have discussed this with the nursing staff. Apparently the Ambien made her too sleepy this morning we will try 25 mg of trazodone at bedtime. She normally takes trazodone at home and this appears to have worked well for her. -HTN-on Lasix, Metoprolol and Diltiazem. BP controlled -HLD- on atorvastatin -Afib-On Eliquis 5mg PO BID. Rate controlled. -Chronic low back pain- on gabapentin 600 mg PO BID and Baclofen 12/21: Controlled -Anxiety/mood d/o- on Prozac and Lamictal 100 mg PO q hs. 12/16: Stable -Urinary disturbances- on Ditropan 12/16: Stable -GI/DVT prophylaxis- ON Eliquis -Fall precautions -Further medical management per hospitalist recommendation. Hospitalist consult -Follow with PCP, Orthopedic surgeon Dr. Jenkins, and Cardiology as outpatient after discharge.
--- NOTE | 2018-12-24 13:25 | PN.NEURO_ITS ---
Patient Problems: Active and Suspected Problems (Last Updated 04/29/18 @ 15:18 by Cee Mcnulty DO) Debility (Acute) Subjective: concerned about low bp. otherwise no complaints. - Physical Exam General: Alert, Oriented x3 Neurological: Cranial nerves II-XII grossly intact Psych/Mental Status: Normal Affect, Alert and oriented to time, place, person, mood and affect Vital Signs Temp Pulse Resp BP Pulse Ox 36.6 C 71 16 102/76 95 12/24/18 07:42 12/24/18 07:44 12/24/18 07:42 12/24/18 07:42 12/24/18 07:42 Oxygen Flow Rate (L/min) 2 Oxygen Delivery Method Room Air Weight: 120.769 kg Body Mass Index (BMI) 41.3 Intake and Output for Last 24 Hours 12/22/18 12/23/18 12/24/18 23:59 23:59 23:59 Intake Total 1080 / 1080 Balance 1080 / 1080 Current Medications Generic Name Dose Route Start Last Admin Trade Name Freq PRN Reason Stop Dose Admin Acetaminophen 650 mg 12/07/18 20:04 12/22/18 11:28 Tylenol PO 650 mg Q6H PRN PRN Administration Mild Pain (scale 0-3)/T>100.7 Hydrocodone Bitart/Acetaminophen 1 tablet 12/10/18 10:41 12/24/18 08:11 [place] 5mg-325mg PO 1 tablet Q6H PRN PRN Administration SEVERE PAIN (6-10/10) Apixaban 5 mg 12/07/18 22:00 12/24/18 07:43 Eliquis PO 5 mg BID SUZANNE Administration Ascorbic Acid 1,500 mg 12/08/18 10:00 12/24/18 07:43 Vitamin C PO 1,500 mg DAILY SUZANNE Administration Atorvastatin Calcium 20 mg 12/07/18 22:00 12/23/18 22:02 Lipitor PO 20 mg QHS SUZANNE Administration Baclofen 5 mg 12/09/18 14:00 12/24/18 13:06 Lioresal PO 5 mg TID SUZANNE Administration Bisacodyl 10 mg 12/07/18 20:04 12/09/18 01:56 Dulcolax RECTAL 10 mg DAILY PRN PRN Administration Constipation Calamine/Phenol 1 applic 12/10/18 22:00 12/24/18 05:53 Calmoseptine Ointment TOPICAL 1 applicatio BID@0600,2200 SUZANNE Administration Protocol Diltiazem HCl 240 mg 12/08/18 10:00 12/24/18 07:44 Cardizem Cd PO 240 mg DAILY [facility]NE Administration Diphenhydramine HCl 25 mg 12/16/18 09:55 Benadryl PO TID PRN PRN ITCHING Ergocalciferol 50,000 unit 12/12/18 10:00 12/19/18 08:46 Vitamin D PO 50,000 unit LUDWIG SUZANNE Administration Fluoxetine HCl 40 mg 12/08/18 10:00 12/24/18 07:43 Prozac PO 40 mg DAILY [facility] Administration Furosemide 40 mg 12/08/18 10:00 12/24/18 07:44 Lasix PO 40 mg BIDLX [facility]NE Administration Gabapentin 600 mg 12/07/18 22:00 12/24/18 07:44 Neurontin PO 600 mg BID [facility] Administration Lamotrigine 100 mg 12/07/18 22:00 12/23/18 22:01 Lamictal PO 100 mg QHS [facility] Administration Magnesium Hydroxide 30 ml 12/07/18 20:06 12/08/18 19:58 Milk Of Magnesia PO 30 ml .PRN X 1 PRN Administration Constipation Metoprolol Tartrate 75 mg 12/16/18 22:00 12/24/18 07:44 Lopressor (Beta Danielle) PO 75 mg BID [facility] Administration Oxybutynin Chloride 10 mg 12/07/18 22:00 12/24/18 07:43 Ditropan PO 10 mg BID [facility] Administration Polyethylene Glycol 17 gm 12/08/18 10:00 12/24/18 07:47 Miralax PO Not Given DAILY [facility] Potassium Chloride 40 meq 12/08/18 08:00 12/24/18 07:43 [facility] Administration Senna/Docusate Sodium 2 tablet 12/07/18 22:00 12/24/18 07:48 Senokot-S, Sena-Colace PO Not Given BID [facility] Trazodone HCl 25 mg 12/20/18 22:00 12/23/18 22:01 Desyrel PO 25 mg QHS [facility] Administration Medical Necessity - Tobacco Use Smoking Status: Former smoker Assessment/Plan All Active Problems (Last Updated 04/29/18 @ 15:18 by Cee Mcnulty DO) Acute fall (Acute) Fracture of femur, distal, left, closed (Acute) Debility (Acute) Acute exacerbation of chronic obstructive pulmonary disease (COPD) (Resolved) Parainfluenza virus bronchopneumonia (Resolved) History of MRSA infection (Resolved) Non-healing wound of lower extremity (Acute) Allergic reaction due to correct medicinal substance properly administered (Resolved) Atrial fibrillation with RVR (Resolved) CAP (community acquired pneumonia) (Resolved) Cellulitis of lower leg (Resolved) Influenza B (Resolved) Laceration of head (Resolved) Metabolic alkalosis (Resolved) Pneumonia (Resolved) Syncope and collapse (Resolved) Per notes: The patient is a 63 year old F with PMH HTN, Afib on Eliquis, LUIS, morbid obesity, COPD, GERD, chronic non healing ulcer bilateral LE, Lumbar spo ndylosis with lumbar radiculopathy and degenerative disc disease, depression/anxiety admitted to [facility] on 12/07/18 with debility s/p fall and left distal femur closed fracture s/p revision total left knee replacement done by Dr. Jenkins on 12/04/18, for >3 hrs therapy daily with a goal of returning back home at or near her prior level of functional independence. Per patient she fell on ice on 12/03/18, had femur fracture, per patient she hit her back of the head also, but denies any LOC, had some double vision since but has improved, denies any MARINO. Lives with her BF and brother in an apartment, has 2 steps to go into the house, does not use cane or walker at baseline, denies any frequent falls, does drive and does not need any assistance for her ADLs at baseline. Per patient she has chronic low back pain, does go to pain management for the same. Has occasional radicular symptoms but denies the same at present. Impression: Debility status post left femur fracture status post ORIF and revision of left knee replacement. Goal of rehab is church of prior level of functional independence. Plan -PT for gait stability and balance -OT for ADLs -Analgesics PRN -Bowel protocol -Left distal closed femur fracture s/p revision total left knee replacement- further postsurgical management per orthopedic Dr. Jenkins's recommendation. Per Dr. Jenkins's further recommendation doxycycline was restarted and it is to be given for 14 days. WBCs 9.1 (12/10/2018). 12/16: Stable. Incision is clear. 12/21: Stable -Orthostatic vitals were positive- maintain hydration, compression stockings as needed. 12/16: Stable. 12/21: Resolved. 12/24: will reduce lopressor to 50mg bid -Dizziness and light headedness per PT/OT after patient walks a few steps- probably orthostatic but will re-check CT head w/o contrast as she had hit the back of the head when she fell on 12/01/18 per patient. Per patient she does not want to get MRI brain due to claustrophobia. will do CT head for possible post- concussion syndrome. 12/16: No recurrence. Vertigo has recurred. We will do a CTA of her head and neck. Patient cannot have an MRI due to claustrophobia. 12/21: None recurrent. She has a small PICA aneurysm, 8 mm which she is aware of and should be followed periodically with repeat scans. ?Muscle spasms?patient was started on baclofen 10 mg p.o. [address] Harris about a month ago. Per patient baclofen has not helped much. decreased to baclofen to 5 mg p.o. 3 times daily. 12/16: Resolved this may be due to overmedication with narcotics ?We will discontinue trazodone as PT/OT thinks patient is too sleepy at times. Stopping trazodone has helped. Patient has asked to restart trazodone at 50 mg we will try this and see. Somehow the trazodone was discontinued and she is ba ck on Ambien. I have discussed this with the nursing staff. Apparently the Ambien made her too sleepy this morning we will try 25 mg of trazodone at bedtime. She normally takes trazodone at home and this appears to have worked well for her. -HTN-on Lasix, Metoprolol and Diltiazem. BP controlled -HLD- on atorvastatin -Afib-On Eliquis 5mg PO BID. Rate controlled. -Chronic low back pain- on gabapentin 600 mg PO BID and Baclofen 12/21: Controlled -Anxiety/mood d/o- on Prozac and Lamictal 100 mg PO q hs. 2/7: Stable -Urinary disturbances- on Ditropan 12/16: Stable -GI/DVT prophylaxis- ON Eliquis -Fall precautions -Further medical management per hospitalist recommendation. Hospitalist consult -Follow with PCP, Orthopedic surgeon Dr. Jenkins, and Cardiology as outpatient after discharge.
--- NOTE | 2018-12-24 14:31 | PN_ITS ---
Patient Problems: Active and Suspected Problems (Last Updated 04/29/18 @ 15:18 by Cee Mcnulty DO) Debility (Acute) Subjective: Seen has tolerated physical therapy well. Pain in the left knee appears to have subsided Objective: GENERAL: cooperative HEENT: Atraumatic; moist oral mucosa EYES; Anicteric, Normal Conjunctiva NECK; supple, normal thyroid, no distended JVD. RESPIRATORY: Diminished to auscultation bilaterally, CARDIOVASCULAR: Regular S1 S2, no audible murmurs GI: soft, non-tender, normoactive bowel sounds, : No Renal angle tenderness; EXTREMITIES: No edema, no clubbing, no cyanosis. MUSCULOSKELETAL: left Knee surgical dressing NEURO: Awake; no lateralizing signs. SKIN: No Rash PSYCH; Normal affect Vitals/I&O's: Vital Signs Temp Pulse Resp BP Pulse Ox 97.8 F 71 16 102/76 95 12/24/18 07:42 12/24/18 07:44 12/24/18 07:42 12/24/18 07:42 12/24/18 07:42 Oxygen Flow Rate (L/min) 2 Oxygen Delivery Method Room Air Weight: 120.769 kg Body Mass Index (BMI) 41.3 Intake and Output for Last 24 Hours 12/22/18 12/23/18 12/24/18 23:59 23:59 23:59 Intake Total 1080 / 1080 Balance 1080 / 1080 Current Medications Acetaminophen (Tylenol) 650 mg PO Q6H PRN PRN PRN Reason: Mild Pain (scale 0-3)/T>100.7 Last Admin: 12/22/18 11:28 Dose: 650 mg Hydrocodone Bitart/Acetaminophen ([place] 5mg-325mg) 1 tablet PO Q6H PRN PRN PRN Reason: SEVERE PAIN (6-10/10) Last Admin: 12/24/18 08:11 Dose: 1 tablet Apixaban (Eliquis) 5 mg PO BID [facility] Last Admin: 12/24/18 07:43 Dose: 5 mg Ascorbic Acid (Vitamin C) 1,500 mg PO DAILY [facility] Last Admin: 12/24/18 07:43 Dose: 1,500 mg Atorvastatin Calcium (Lipitor) 20 mg PO QHS [facility] Last Admin: 12/23/18 22:02 Dose: 20 mg Baclofen (Lioresal) 5 mg PO TID [facility] Last Admin: 12/24/18 13:06 Dose: 5 mg Bisacodyl (Dulcolax) 10 mg RECTAL DAILY PRN PRN PRN Reason: Constipation Last Admin: 12/09/18 01:56 Dose: 10 mg Calamine/Phenol (Calmoseptine Ointment) 1 applic TOPICAL BID@0600,2200 [facility]; Protocol Last Admin: 12/24/18 05:53 Dose: 1 applicatio Diltiazem HCl (Cardizem Cd) 240 mg PO DAILY [facility] Last Admin: 12/24/18 07:44 Dose: 240 mg Diphenhydramine HCl (Benadryl) 25 mg PO TID PRN PRN PRN Reason: ITCHING Ergocalciferol (Vitamin D) 50,000 unit PO LUDWIG [facility] Last Admin: 12/19/18 08:46 Dose: 50,000 unit Fluoxetine HCl (Prozac) 40 mg PO DAILY [facility] Last Admin: 12/24/18 07:43 Dose: 40 mg Furosemide (Lasix) 40 mg PO BIDLX [facility] Last Admin: 12/24/18 07:44 Dose: 40 mg Gabapentin (Neurontin) 600 mg PO BID [facility] Last Admin: 12/24/18 07:44 Dose: 600 mg Lamotrigine (Lamictal) 100 mg PO QHS [facility] Last Admin: 12/23/18 22:01 Dose: 100 mg Magnesium Hydroxide (Milk Of Magnesia) 30 ml PO .PRN X 1 PRN PRN Reason: Constipation Last Admin: 12/08/18 19:58 Dose: 30 ml Metoprolol Tartrate (Lopressor (Beta Danielle)) 50 mg PO BID [facility] Oxybutynin Chloride (Ditropan) 10 mg PO BID [facility] Last Admin: 12/24/18 07:43 Dose: 10 mg Polyethylene Glycol (Miralax) 17 gm PO DAILY [facility] Last Admin: 12/24/18 07:47 Dose: Not Given Potassium [facility] ([facility] Last Admin: 12/24/18 07:43 Dose: 40 meq Senna/Docusate Sodium (Senokot-S, Sena-Colace) 2 tablet PO BID [facility] Last Admin: 12/24/18 07:48 Dose: Not Given Trazodone HCl (Desyrel) 25 mg PO QHS [facility] Last Admin: 12/23/18 22:01 Dose: 25 mg Medical Necessity - Tobacco Use Smoking Status: Former smoker Assessment/Plan All Active Problems (Last Updated 04/29/18 @ 15:18 by Cee Mcnulty DO) Acute fall (Acute) Fracture of femur, distal, left, closed (Acute) Debility (Acute) Acute exacerbation of chronic obstructive pulmonary disease (COPD) (Resolved) Parainfluenza virus bronchopneumonia (Resolved) History of MRSA infection (Resolved) Non-healing wound of lower extremity (Acute) Allergic reaction due to correct medicinal substance properly administered (Resolved) Atrial fibrillation with RVR (Resolved) CAP (community acquired pneumonia) (Resolved) Cellulitis of lower leg (Resolved) Influenza B (Resolved) Laceration of head (Resolved) Metabolic alkalosis (Resolved) Pneumonia (Resolved) Syncope and collapse (Resolved) Patient is a 63-year-old lady who slipped on ice injuring her left knee imaging studies obtained on admission demonstrated Comminuted and dorsally angulated fracture of the distal femur, involving the total knee arthroplasty. Admitted to regular nursing floor with consultation placed to orthopedic surgery patient underwent surgical intervention on 12/04/2018 patient was transferred to the inpatient rehab unit once her medical condition stabilized. 1. Acute comminuted, displaced, closed fracture of the distal femoral diaphysis, proximal to the femoral prosthesis secondary to fall. Patient underwent Revision left total knee replacement entire femoral and tibial component on 12/04/[address] Jenkins transferred to the inpatient rehab unit once her medical condition stabilized. Patient progress is rather been slow. 2. Paroxysmal atrial fibrillation rate controlled on systemic anticoagulation with Eliquis resumed on 12/05/2017 3. Anemia secondary to acute blood loss anemia following surgery monitoring H&H and has not require blood transfusion 4. COPD without acute exacerbation did continue patient home regimen 5. Obstructive sleep apnea 6. Morbid obesity with BMI of 41.6 7. Hypertension-blood pressure controlled, home medications continued with dose adjustment as needed 8. Depression with anxiety 9. Chronic alcoholic cirrhosis stable 10. DVT prophylaxis on Eliquis Code Visit Inpatient E&M: 26545 Subs Hosp L2
[2018-12-24 16:59] VITALS: BP 108/64
[2018-12-24 20:27] VITALS: BP 99/53; PULSE 84; RESP 16; TEMP 36.7; O2SAT 97
[2018-12-24] MEDS: traZODone 50 MG Tablet 25 MG PO (21:05)
[2018-12-24] MEDS: lamoTRIgine 100 MG Tablet PO (21:05)
[2018-12-24] MEDS: Senna/Docusate Sodium 1 Tablet 2 TABLET PO (21:06)
[2018-12-24] MEDS: Atorvastatin Calcium 20 MG Tablet PO (21:06)
[2018-12-24 21:13] VITALS: BP 98/62
--- NOTE | 2018-12-25 01:24 | NURSING ---
Reviewed and agree with [employer] [employer] documentation and [employer]IM[employer] charting.
[2018-12-25] MEDS: Baclofen 10 MG Tablet 5 MG PO ×3 (06:36→21:11)
[2018-12-25] MEDS: Menthol/Lanolin/Calamine/Znox 113 GM Tube 1 APPLIC TOPICAL ×2 (06:36→21:17)
[2018-12-25 07:31] VITALS: BP 105/65; PULSE 79; RESP 18; TEMP 36.9; O2SAT 95
[2018-12-25] MEDS: Oxybutynin 5 MG Tablet 10 MG PO ×2 (10:30→21:10)
[2018-12-25] MEDS: dilTIAZem CD 240 MG Capsule PO (10:30)
[2018-12-25] MEDS: APIXABAN 5 MG TABLET PO ×2 (10:30→21:11)
[2018-12-25 10:31] VITALS: BP 105/65; PULSE 79
[2018-12-25] MEDS: Furosemide 40 MG Tablet PO ×2 (10:31→17:35)
[2018-12-25] MEDS: Metoprolol Tartrate 50 MG Tablet PO ×2 (10:31→21:12)
[2018-12-25] MEDS: FLUoxetine 20 MG Capsule 40 MG PO (10:31)
[2018-12-25] MEDS: Ascorbic Acid 500 MG Tablet 1500 MG PO (10:31)
[2018-12-25] MEDS: Gabapentin 600 MG Tablet PO ×2 (10:31→21:13)
[2018-12-25 18:58] VITALS: BP 106/58; PULSE 80; RESP 18; TEMP 37.1; O2SAT 96
[2018-12-25] MEDS: traZODone 50 MG Tablet 25 MG PO (21:10)
[2018-12-25] MEDS: lamoTRIgine 100 MG Tablet PO (21:11)
[2018-12-25 21:12] VITALS: PULSE 79
[2018-12-25] MEDS: Atorvastatin Calcium 20 MG Tablet PO (21:12)
[2018-12-25] MEDS: HYDROcodone Bitartrate/Apap 5/325 Tablet PO (21:16)
[2018-12-25 22:00] VITALS: PULSE 76
[2018-12-26] MEDS: Baclofen 10 MG Tablet 5 MG PO ×3 (06:02→20:54)
[2018-12-26] MEDS: Menthol/Lanolin/Calamine/Znox 113 GM Tube 1 APPLIC TOPICAL ×2 (06:04→20:52)
[2018-12-26 07:51] VITALS: BP 98/68; PULSE 71; RESP 16; TEMP 36.6; O2SAT 95
[2018-12-26 09:16] VITALS: BP 103/63; PULSE 79
[2018-12-26] MEDS: Oxybutynin 5 MG Tablet 10 MG PO ×2 (09:16→20:53)
[2018-12-26] MEDS: dilTIAZem CD 240 MG Capsule PO (09:16)
[2018-12-26] MEDS: Ascorbic Acid 500 MG Tablet 1500 MG PO (09:16)
[2018-12-26] MEDS: Metoprolol Tartrate 50 MG Tablet PO ×2 (09:16→20:54)
[2018-12-26] MEDS: APIXABAN 5 MG TABLET PO ×2 (09:16→20:53)
[2018-12-26] MEDS: Senna/Docusate Sodium 1 Tablet 2 TABLET PO (09:16)
[2018-12-26] MEDS: Furosemide 40 MG Tablet PO ×2 (09:17→18:10)
[2018-12-26] MEDS: Gabapentin 600 MG Tablet PO ×2 (09:17→20:55)
[2018-12-26] MEDS: FLUoxetine 20 MG Capsule 40 MG PO (09:17)
--- NOTE | 2018-12-26 10:36 | PN_ITS ---
Patient Problems: Active and Suspected Problems (Last Updated 04/29/18 @ 15:18 by Cee Mcnulty DO) Debility (Acute) Subjective: Patient seen. Did experience a relatively uneventful night. Did order for CBC BMP and magnesium reviewed within normal limits. Objective: GENERAL: cooperative HEENT: Atraumatic; moist oral mucosa EYES; Anicteric, Normal Conjunctiva NECK; supple, normal thyroid, no distended JVD. RESPIRATORY: Diminished to auscultation bilaterally, CARDIOVASCULAR: Regular S1 S2, no audible murmurs GI: soft, non-tender, normoactive bowel sounds, : No Renal angle tenderness; EXTREMITIES: No edema, no clubbing, no cyanosis. MUSCULOSKELETAL: left Knee surgical dressing NEURO: Awake; no lateralizing signs. SKIN: No Rash PSYCH; Normal affect Vitals/I&O's: Vital Signs Temp Pulse Resp BP Pulse Ox 98 F 79 16 103/63 95 12/26/18 07:51 12/26/18 09:16 12/26/18 07:51 12/26/18 09:16 12/26/18 07:51 Oxygen Flow Rate (L/min) 2 Oxygen Delivery Method Room Air Weight: 120.769 kg Body Mass Index (BMI) 41.3 Intake and Output for Last 24 Hours 12/24/18 12/25/18 12/26/18 23:59 23:59 23:59 Intake Total 1340 / 1340 Balance 1340 / 1340 Current Medications Acetaminophen (Tylenol) 650 mg PO Q6H PRN PRN PRN Reason: Mild Pain (scale 0-3)/T>100.7 Last Admin: 12/22/18 11:28 Dose: 650 mg Hydrocodone Bitart/Acetaminophen ([place] 5mg-325mg) 1 tablet PO Q6H PRN PRN PRN Reason: SEVERE PAIN (6-10/10) Last Admin: 12/25/18 21:16 Dose: 1 tablet Apixaban (Eliquis) 5 mg PO BID [facility] Last Admin: 12/26/18 09:16 Dose: 5 mg Ascorbic Acid (Vitamin C) 1,500 mg PO DAILY [facility] Last Admin: 12/26/18 09:16 Dose: 1,500 mg Atorvastatin Calcium (Lipitor) 20 mg PO QHS [facility] Last Admin: 12/25/18 21:12 Dose: 20 mg Baclofen (Lioresal) 5 mg PO TID [facility] Last Admin: 12/26/18 06:02 Dose: 5 mg Bisacodyl (Dulcolax) 10 mg RECTAL DAILY PRN PRN PRN Reason: Constipation Last Admin: 12/09/18 01:56 Dose: 10 mg Calamine/Phenol (Calmoseptine Ointment) 1 applic TOPICAL BID@0600,2200 [facility]; Protocol Last Admin: 12/26/18 06:04 Dose: 1 applicatio Diltiazem HCl (Cardizem Cd) 240 mg PO DAILY [facility] Last Admin: 12/26/18 09:16 Dose: 240 mg Diphenhydramine HCl (Benadryl) 25 mg PO TID PRN PRN PRN Reason: ITCHING Ergocalciferol (Vitamin D) 50,000 unit PO LUDWIG [facility] Last Admin: 12/26/18 09:20 Dose: 50,000 unit Fluoxetine HCl (Prozac) 40 mg PO DAILY [facility] Last Admin: 12/26/18 09:17 Dose: 40 mg Furosemide (Lasix) 40 mg PO BIDLX [facility] Last Admin: 12/26/18 09:17 Dose: 40 mg Gabapentin (Neurontin) 600 mg PO BID [facility] Last Admin: 12/26/18 09:17 Dose: 600 mg Lamotrigine (Lamictal) 100 mg PO QHS [facility] Last Admin: 12/25/18 21:11 Dose: 100 mg Magnesium Hydroxide (Milk Of Magnesia) 30 ml PO .PRN X 1 PRN PRN Reason: Constipation Last Admin: 12/08/18 19:58 Dose: 30 ml Metoprolol Tartrate (Lopressor (Beta Danielle)) 50 mg PO BID [facility] Last Admin: 12/26/18 09:16 Dose: 50 mg Oxybutynin Chloride (Ditropan) 10 mg PO BID [facility] Last Admin: 12/26/18 09:16 Dose: 10 mg Polyethylene Glycol (Miralax) 17 gm PO DAILY [facility] Last Admin: 12/26/18 09:12 Dose: Not Given [facility] Last Admin: 12/26/18 09:17 Dose: 40 meq Senna/Docusate Sodium (Senokot-S, Sena-Colace) 2 tablet PO BID [facility] Last Admin: 12/26/18 09:16 Dose: 2 tablet Trazodone HCl (Desyrel) 25 mg PO QHS [facility] Last Admin: 12/25/18 21:10 Dose: 25 mg Medical Necessity - Tobacco Use Smoking Status: Former smoker Assessment/Plan All Active Problems (Last Updated 04/29/18 @ 15:18 by Cee Mcnulty DO) Acute fall (Acute) Fracture of femur, distal, left, closed (Acute) Debility (Acute) Acute exacerbation of chronic obstructive pulmonary disease (COPD) (Resolved) Parainfluenza virus bronchopneumonia (Resolved) History of MRSA infection (Resolved) Non-healing wound of lower extremity (Acute) Allergic reaction due to correct medicinal substance properly administered (Resolved) Atrial fibrillation with RVR (Resolved) CAP (community acquired pneumonia) (Resolved) Cellulitis of lower leg (Resolved) Influenza B (Resolved) Laceration of head (Resolved) Metabolic alkalosis (Resolved) Pneumonia (Resolved) Syncope and collapse (Resolved) Patient is a 63-year-old lady who slipped on ice injuring her left knee imaging studies obtained on admission demonstrated Comminuted and dorsally angulated fracture of the distal femur, involving the total knee arthroplasty. Admitted to regular nursing floor with consultation placed to orthopedic surgery patient underwent surgical intervention on 12/04/2018 patient was transferred to the inpatient rehab unit once her medical condition stabilized. 1. Acute comminuted, displaced, closed fracture of the distal femoral diaphysis, proximal to the femoral prosthesis secondary to fall. Patient underwent Revision left total knee replacement entire femoral and tibial component on 12/04/[address] Jenkins transferred to the inpatient rehab unit once her medical condition stabilized. Patient progress is rather been slow. 2. Paroxysmal atrial fibrillation rate controlled on systemic anticoagulation with Eliquis resumed on 12/05/2017 3. Anemia secondary to acute blood loss anemia following surgery monitoring H&H and has not require blood transfusion 4. COPD without acute exacerbation did continue patient home regimen 5. Obstructive sleep apnea 6. Morbid obesity with BMI of 41.6 7. Hypertension-blood pressure controlled, home medications continued with dose adjustment as needed 8. Depression with anxiety 9. Chronic alcoholic cirrhosis stable 10. DVT prophylaxis on Eliquis Code Visit Inpatient E&M: 46578 Subs Hosp L2
[2018-12-26 11:13] LABS: Mean Corp Hgb Conc 30.3 g/gl (32-36); Mean Corpuscular Hgb 28.7 pg (27.0-32.0); Mean Corpuscular Volume 94.6 fL (81-99); Mean Platelet Vol. 9.6 fl (6.2-12.0); Platelet Count 284 K/mm3 (150-450); RBC Distribution Width CV 15.8 % (11.6-14.6); Red Blood Count 3.49 M/mm3 (4.2-5.4); Scan Indicated on CBC? Y/N NO; White Blood Count 6.3 K/mm3 (4.4-11.0)
[2018-12-26 11:38] LABS: Anion Gap 7 (5-15); BUN 16 mg/dL (7-18); BUN/Creat Ratio 20.7 RATIO (10-20); Calcium,Total 8.3 mg/dL (8.5-10.1); Chloride 105 mmol/L (98-107); Creatinine, Serum 0.77 mg/dL (0.55-1.02); EST Glomerular Filtration Rate 80 mL/min (>60); Est Glom Filt Rate - Afr Amer 97 mL/min (>60); Estimated Creatinine Clearance 74.46 ml/min; Glucose 104 mg/dL (74-106); Potassium 3.8 mmol/L (3.5-5.1); Sodium Level 143 mmol/L (136-145)
[2018-12-26 19:48] VITALS: BP 124/74; PULSE 81; RESP 19; TEMP 37.1; O2SAT 95
[2018-12-26 20:46] VITALS: PULSE 81
[2018-12-26] MEDS: lamoTRIgine 100 MG Tablet PO (20:53)
[2018-12-26] MEDS: traZODone 50 MG Tablet 25 MG PO (20:53)
[2018-12-26 20:54] VITALS: BP 124/74; PULSE 81
[2018-12-26] MEDS: Atorvastatin Calcium 20 MG Tablet PO (20:54)
[2018-12-26] MEDS: HYDROcodone Bitartrate/Apap 5/325 Tablet PO (22:12)
[2018-12-27] MEDS: Menthol/Lanolin/Calamine/Znox 113 GM Tube 1 APPLIC TOPICAL ×2 (05:12→20:47)
[2018-12-27] MEDS: Baclofen 10 MG Tablet 5 MG PO ×3 (05:12→20:45)
[2018-12-27] MEDS: HYDROcodone Bitartrate/Apap 5/325 Tablet PO ×3 (05:14→20:47)
[2018-12-27] MEDS: Ascorbic Acid 500 MG Tablet 1500 MG PO (07:54)
[2018-12-27] MEDS: Gabapentin 600 MG Tablet PO ×2 (07:54→20:47)
[2018-12-27] MEDS: FLUoxetine 20 MG Capsule 40 MG PO (07:55)
[2018-12-27] MEDS: Oxybutynin 5 MG Tablet 10 MG PO ×2 (07:55→20:45)
[2018-12-27] MEDS: Furosemide 40 MG Tablet PO ×2 (07:55→16:08)
[2018-12-27] MEDS: APIXABAN 5 MG TABLET PO ×2 (07:57→20:45)
[2018-12-27] MEDS: dilTIAZem CD 240 MG Capsule PO (07:57)
[2018-12-27 08:16] VITALS: BP 102/64; PULSE 72; RESP 18; TEMP 36.6; O2SAT 92
[2018-12-27 08:29] VITALS: BP 102/64; PULSE 72
[2018-12-27] MEDS: Metoprolol Tartrate 50 MG Tablet PO ×2 (08:29→20:46)
--- NOTE | 2018-12-27 11:34 | CASEMGMT ---
Team meeting held. Patient present, no support person present at this time. Patient with insurance update due on this day, 12/27/18 and aware that continued stay approval is not guaranteed. Patient plans to discharge to home with significant other and brother versus SNF, pending how long insurance will coverage patient on the Inpatient Rehab Unit. Patient unsure of what SNF at this time. Patient to continue with further care and treatment on the Inpatient Rehab Unit. Support given. Will continue to follow. Waldemar ESTRELLA, CAMILA
--- NOTE | 2018-12-27 11:47 | PN.NEURO_ITS ---
Patient Problems: Active and Suspected Problems (Last Updated 04/29/18 @ 15:18 by Cee Mcnulty DO) Debility (Acute) Subjective: Patient staffed in team meeting. No complaints. Tolerating therapies. With physical therapy she is contact-guard assist/min assist and able to ambulate 40- 60 feet which is improved. With occupational therapy measures she has been assessed/set up and with nursing there are no issues although she is requesting that her Rakan wraps be discontinued and we will abide by this. Awaiting update from care source. - Physical Exam General: Alert, Oriented x3, Cooperative, No apparent distress Neurological: Cranial nerves II-XII grossly intact Psych/Mental Status: Normal Affect, Alert and oriented to time, place, person, mood and affect Vital Signs Temp Pulse Resp BP Pulse Ox 36.6 C 72 18 102/64 92 12/27/18 08:16 12/27/18 08:29 12/27/18 08:16 12/27/18 08:29 12/27/18 08:16 Oxygen Flow Rate (L/min) 2 Oxygen Delivery Method Room Air Weight: 120.769 kg Body Mass Index (BMI) 41.3 Intake and Output for Last 24 Hours 12/25/18 12/26/18 12/27/18 23:59 23:59 23:59 Intake Total 1340 / 1340 600 / 600 Balance 1340 / 1340 600 / 600 Current Medications Generic Name Dose Route Start Last Admin Trade Name Freq PRN Reason Stop Dose Admin Acetaminophen 650 mg 12/07/18 20:04 12/22/18 11:28 Tylenol PO 650 mg Q6H PRN PRN Administration Mild Pain (scale 0-3)/T>100.7 Hydrocodone Bitart/Acetaminophen 1 tablet 12/10/18 10:41 12/27/18 11:34 [place] 5mg-325mg PO 1 tablet Q6H PRN PRN Administration SEVERE PAIN (6-10/10) Apixaban 5 mg 12/07/18 22:00 12/27/18 07:57 Eliquis PO 5 mg BID [facility] Administration Ascorbic Acid 1,500 mg 12/08/18 10:00 12/27/18 07:54 Vitamin C PO 1,500 mg DAILY [facility] Administration Atorvastatin Calcium 20 mg 12/07/18 22:00 12/26/18 20:54 Lipitor PO 20 mg QHS [facility] Administration Baclofen 5 mg 12/09/18 14:00 12/27/18 05:12 Lioresal PO 5 mg TID [facility] Administration Bisacodyl 10 mg 12/07/18 20:04 12/09/18 01:56 Dulcolax RECTAL 10 mg DAILY PRN PRN Administration Constipation Calamine/Phenol 1 applic 12/10/18 22:00 12/27/18 05:12 Calmoseptine Ointment TOPICAL 1 applicatio BID@0600,2200 [facility] Administration Protocol Diltiazem HCl 240 mg 12/08/18 10:00 12/27/18 07:57 Cardizem Cd PO 240 mg DAILY [facility] Administration Diphenhydramine HCl 25 mg 12/16/18 09:55 Benadryl PO TID PRN PRN ITCHING Ergocalciferol 50,000 unit 12/12/18 10:00 12/26/18 09:20 Vitamin D PO 50,000 unit LUDWIG [facility] Administration Fluoxetine HCl 40 mg 12/08/18 10:00 12/27/18 07:55 Prozac PO 40 mg DAILY [facility] Administration Furosemide 40 mg 12/08/18 10:00 12/27/18 07:55 Lasix PO 40 mg BIDLX [facility] Administration Gabapentin 600 mg 12/07/18 22:00 12/27/18 07:54 Neurontin PO 600 mg BID [facility] Administration Lamotrigine 100 mg 12/07/18 22:00 12/26/18 20:53 Lamictal PO 100 mg QHS [facility] Administration Magnesium Hydroxide 30 ml 12/07/18 20:06 12/08/18 19:58 Milk Of Magnesia PO 30 ml .PRN X 1 PRN Administration Constipation Metoprolol Tartrate 50 mg 12/24/18 22:00 12/27/18 08:29 Lopressor (Beta Danielle) PO 50 mg BID [facility] Administration Oxybutynin Chloride 10 mg 12/07/18 22:00 12/27/18 07:55 Ditropan PO 10 mg BID [facility] Administration Polyethylene Glycol 17 gm 12/08/18 10:00 12/27/18 07:57 Miralax PO Not Given DAILY [facility] Potassium Chloride 40 meq 12/08/18 08:00 12/27/18 07:55 K-Dur PO 40 meq BIDCM [facility] Administration Senna/Docusate Sodium 2 tablet 12/07/18 22:00 12/27/18 07:58 Senokot-S, Sena-Colace PO Not Given BID [facility] Trazodone HCl 25 mg 12/20/18 22:00 12/26/18 20:53 Desyrel PO 25 mg QHS [facility] Administration Medical Necessity - Tobacco Use Smoking Status: Former smoker Assessment/Plan All Active Problems (Last Updated 04/29/18 @ 15:18 by Cee Mcnulty DO) Acute fall (Acute) Fracture of femur, distal, left, closed (Acute) Debility (Acute) Acute exacerbation of chronic obstructive pulmonary disease (COPD) (Resolved) Parainfluenza virus bronchopneumonia (Resolved) History of MRSA infection (Resolved) Non-healing wound of lower extremity (Acute) Allergic reaction due to correct medicinal substance properly administered (Resolved) Atrial fibrillation with RVR (Resolved) CAP (community acquired pneumonia) (Resolved) Cellulitis of lower leg (Resolved) Influenza B (Resolved) Laceration of head (Resolved) Metabolic alkalosis (Resolved) Pneumonia (Resolved) Syncope and collapse (Resolved) Per notes: The patient is a 63 year old F with PMH HTN, Afib on Eliquis, LUIS, morbid obesity, COPD, GERD, chronic non healing ulcer bilateral LE, Lumbar spondylosis with lumbar radiculopathy and degenerative disc disease, depression/anxiety admitted to [facility] on 12/07/18 with debility s/p fall and left distal femur closed fracture s/p revision total left knee replacement done by Dr. Jenkins on 12/04/18, for >3 hrs therapy daily with a goal of returning back home at or near her prior level of functional independence. Per patient she fell on ice on 12/03/18, had femur fracture, per patient she hit her back of the head also, but denies any LOC, had some double vision since but has improved, denies any MARINO. Lives with her BF and brother in an apartment, has 2 steps to go into the house, does not use cane or walker at baseline, denies any frequent falls, does drive and does not need any assistance for her ADLs at baseline. Per patient she has chronic low back pain, does go to pain management for the same. Has occasional radicular symptoms but denies the same at present. Impression: Debility status post left femur fracture status post ORIF and revision of left knee replacement. Goal of rehab is moravian of prior level of functional independence. Plan -PT for gait stability and balance -OT for ADLs -Analgesics PRN -Bowel protocol -Left distal closed femur fracture s/p revision total left knee replacement- further postsurgical management per orthopedic Dr. Jenkins's recommendation. Per Dr. Jenkins's further recommendation doxycycline was restarted and it is to be given for 14 days. WBCs 9.1 (12/10/2018). 12/16: Stable. Incision is clear. 12/21: Stable 12/27: Improved -Orthostatic vitals were positive- maintain hydration, compression stockings as needed. 12/16: Stable. 12/21: Resolved 12/27: Improved -Dizziness and light headedness per PT/OT after patient walks a few steps- probably orthostatic but will re-check CT head w/o contrast as she had hit the back of the head when she fell on 12/01/18 per patient. Per patient she does not want to get MRI brain due to claustrophobia. will do CT head for possible post- concussion syndrome. 12/16: No recurrence. Vertigo has recurred. We will do a CTA of her head and neck. Patient cannot have an MRI due to claustrophobia. 12/21: None recurrent. She has a small PICA aneurysm, 8 mm which she is aware of and should be followed periodically with repeat scans. ?Muscle spasms?patient was started on baclofen 10 mg p.o. [address] Harris about a month ago. Per patient baclofen has not helped much. decreased to baclofen to 5 mg p.o. 3 times daily. 12/16: Resolved this may be due to overmedication with narcotics. 12/27: Resolved ?We will discontinue trazodone as PT/OT thinks patient is too sleepy at times. Stopping trazodone has helped. Patient has asked to restart trazodone at 50 mg we will try this and see. Somehow the trazodone was discontinued and she is back on Ambien. I have discussed this with the nursing staff. Apparently the Ambien made her too sleepy this morning we will try 25 mg of trazodone at bedtime. She normally takes trazodone at home and this appears to have worked well for her. 12/27: Stable -HTN-on Lasix, Metoprolol and Diltiazem. BP controlled -HLD- on atorvastatin -Afib-On Eliquis 5mg PO BID. Rate controlled. -Chronic low back pain- on gabapentin 600 mg PO BID and Baclofen 12/21: Controlled -Anxiety/mood d/o- on Prozac and Lamictal 100 mg PO q hs. 12/16: Stable -Urinary disturbances- on Ditropan 12/16: Stable -GI/DVT prophylaxis- ON Eliquis -Fall precautions -Further medical management per hospitalist recommendation. Hospitalist consult -Follow with PCP, Orthopedic surgeon Dr. Jenkins, and Cardiology as outpatient after discharge.
--- NOTE | 2018-12-27 13:00 | CASEMGMT ---
Insurance Clinical information sent. Pending continued stay approval. Auth#[id number] Waldemar ESTRELLA, CAMILA
--- NOTE | 2018-12-27 15:00 | CASEMGMT ---
Insurance Continued stay approved with next update due on 01/03/19. LCD: 01/03/19. Auth#[id number] Waldemar ESTRELLA, CAMILA
[2018-12-27 20:30] VITALS: BP 108/62; PULSE 77; RESP 18; TEMP 36.6; O2SAT 94
[2018-12-27] MEDS: traZODone 50 MG Tablet 25 MG PO (20:44)
[2018-12-27] MEDS: lamoTRIgine 100 MG Tablet PO (20:45)
[2018-12-27] MEDS: Atorvastatin Calcium 20 MG Tablet PO (20:45)
[2018-12-27 20:46] VITALS: BP 108/62; PULSE 77
--- NOTE | 2018-12-28 01:15 | NURSING ---
REVIEWED AND AGREE WITH [employer]'S FIM AND HANDOFF CHARTING.
[2018-12-28] MEDS: Acetaminophen 325 MG Tablet 650 MG PO (01:34)
[2018-12-28] MEDS: HYDROcodone Bitartrate/Apap 5/325 Tablet PO ×3 (06:48→21:34)
[2018-12-28] MEDS: Baclofen 10 MG Tablet 5 MG PO ×3 (06:48→21:35)
[2018-12-28] MEDS: Menthol/Lanolin/Calamine/Znox 113 GM Tube 1 APPLIC TOPICAL ×2 (06:49→21:38)
[2018-12-28 08:30] VITALS: BP 100/70; PULSE 69; RESP 16; TEMP 36.8; O2SAT 93
[2018-12-28 08:33] VITALS: BP 141/68; PULSE 61
[2018-12-28] MEDS: Metoprolol Tartrate 50 MG Tablet PO ×2 (08:33→21:35)
[2018-12-28] MEDS: APIXABAN 5 MG TABLET PO ×2 (08:34→21:38)
[2018-12-28] MEDS: Oxybutynin 5 MG Tablet 10 MG PO ×2 (08:34→21:38)
[2018-12-28] MEDS: dilTIAZem CD 240 MG Capsule PO (08:34)
[2018-12-28] MEDS: Ascorbic Acid 500 MG Tablet 1500 MG PO (08:34)
[2018-12-28] MEDS: Furosemide 40 MG Tablet PO ×2 (08:34→17:00)
[2018-12-28] MEDS: Gabapentin 600 MG Tablet PO ×2 (08:34→21:35)
[2018-12-28] MEDS: FLUoxetine 20 MG Capsule 40 MG PO (08:39)
--- NOTE | 2018-12-28 12:41 | PN.NEURO_ITS ---
Patient Problems: Active and Suspected Problems (Last Updated 04/29/18 @ 15:18 by Cee Mcnulty DO) Debility (Acute) Subjective: No new complaints. Tolerating therapies. No GI or complaints. No recurrence of dizziness or vertigo. Has been sleeping well at this point. - Physical Exam General: Alert, Oriented x3, Cooperative, No apparent distress HEENT: PERRLA, EOMI Neurological: Cranial nerves II-XII grossly intact Psych/Mental Status: Normal Affect, Alert and oriented to time, place, person, mood and affect Vital Signs Temp Pulse Resp BP Pulse Ox 36.8 C 61 16 141/68 H 93 12/28/18 08:30 12/28/18 08:33 12/28/18 08:30 12/28/18 08:33 12/28/18 08:30 Oxygen Flow Rate (L/min) 2 Oxygen Delivery Method Room Air Weight: 120.769 kg Body Mass Index (BMI) 41.3 Intake and Output for Last 24 Hours 12/26/18 12/27/18 12/28/18 23:59 23:59 23:59 Intake Total 600 / 600 Balance 600 / 600 Medical Necessity - Tobacco Use Smoking Status: Former smoker Assessment/Plan All Active Problems (Last Updated 04/29/18 @ 15:18 by Cee Mcnulty DO) Acute fall (Acute) Fracture of femur, distal, left, closed (Acute) Debility (Acute) Acute exacerbation of chronic obstructive pulmonary disease (COPD) (Resolved) Parainfluenza virus bronchopneumonia (Resolved) History of MRSA infection (Resolved) Non-healing wound of lower extremity (Acute) Allergic reaction due to correct medicinal substance properly administered (Resolved) Atrial fibrillation with RVR (Resolved) CAP (community acquired pneumonia) (Resolved) Cellulitis of lower leg (Resolved) Influenza B (Resolved) Laceration of head (Resolved) Metabolic alkalosis (Resolved) Pneumonia (Resolved) Syncope and collapse (Resolved) Per notes: The patient is a 63 year old F with PMH HTN, Afib on Eliquis, LUIS, morbid obesity, COPD, GERD, chronic non healing ulcer bilateral LE, Lumbar spondylosis with lumbar radiculopathy and degenerative disc disease, depression/anxiety admitted to [facility] on 12/07/18 with debility s/p fall and left distal femur closed fracture s/p revision total left knee replacement done by Dr. Jenkins on 12/04/18, for >3 hrs therapy daily with a goal of returning back home at or near her prior level of functional independence. Per patient she fell on ice on 12/03/18, had femur fracture, per patient she hit her back of the head also, but denies any LOC, had some double vision since but has improved, denies any MARINO. Lives with her BF and brother in an apartment, has 2 steps to go into the house, does not use cane or walker at baseline, denies any frequent falls, does drive and does not need any assistance for her ADLs at baseline. Per patient she has chronic low back pain, does go to pain management for the same. Has occasional radicular symptoms but denies the same at present. Impression: Debility status post left femur fracture status post ORIF and revision of left knee replacement. Goal of rehab is roman catholic of prior level of functional independence. Plan -PT for gait stability and balance. 12/28: Stable -OT for ADLs. 2/: Stable -Analgesics PRN -Bowel protocol -Left distal closed femur fracture s/p revision total left knee replacement- further postsurgical management per orthopedic Dr. Jenkins's recommendation. Per Dr. Jenkins's further recommendation doxycycline was restarted and it is to be given for 14 days. WBCs 9.1 (12/10/2018). 12/16: Stable. Incision is clear. 12/21: Stable 12/27: Improved 12/28: Stable. -Orthostatic vitals were positive- maintain hydration, compression stockings as needed. 12/16: Stable. 12/21: Resolved 12/27: Improved -Dizziness and light headedness per PT/OT after patient walks a few steps- probably orthostatic but will re-check CT head w/o contrast as she had hit the back of the head when she fell on 12/01/18 per patient. Per patient she does not want to get MRI brain due to claustrophobia. will do CT head for possible post- concussion syndrome. 12/16: No recurrence. Vertigo has recurred. We will do a CTA of her head and neck. Patient cannot have an MRI due to claustrophobia. 12/21: None recurrent. She has a small PICA aneurysm, 8 mm which she is aware of and should be followed periodically with repeat scans. ?Muscle spasms?patient was started on baclofen 10 mg p.o. [address] Harris about a month ago. Per patient baclofen has not helped much. decreased to baclofen to 5 mg p.o. 3 times daily. 12/16: Resolved this may be due to overmedication with narcotics. 12/27: Resolved ?We will discontinue trazodone as PT/OT thinks patient is too sleepy at times. Stopping trazodone has helped. Patient has asked to restart trazodone at 50 mg we will try this and see. Somehow the trazodone was discontinued and she is back on Ambien. I have discussed this with the nursing staff. Apparently the Ambien made her too sleepy this morning we will try 25 mg of trazodone at bedtime. She normally takes trazodone at home and this appears to have worked well for her. 12/27: Stable -HTN-on Lasix, Metoprolol and Diltiazem. BP controlled -HLD- on atorvastatin -Afib-On Eliquis 5mg PO BID. Rate controlled. -Chronic low back pain- on gabapentin 600 mg PO BID and Baclofen 12/21: Controlled -Anxiety/mood d/o- on Prozac and Lamictal 100 mg PO q hs. 12/16: Stable -Urinary disturbances- on Ditropan 12/16: Stable -GI/DVT prophylaxis- ON Eliquis -Fall precautions -Further medical management per hospitalist recommendation. Hospitalist consult -Follow with PCP, Orthopedic surgeon Dr. Jenkins, and Cardiology as outpatient after discharge.
[2018-12-28 21:20] VITALS: BP 106/72; PULSE 61; RESP 16; RESP 17; TEMP 37.1; O2SAT 97
[2018-12-28] MEDS: traZODone 50 MG Tablet 25 MG PO (21:34)
[2018-12-28 21:35] VITALS: BP 106/72; PULSE 61
[2018-12-28] MEDS: Senna/Docusate Sodium 1 Tablet 2 TABLET PO (21:35)
[2018-12-28] MEDS: Atorvastatin Calcium 20 MG Tablet PO (21:35)
[2018-12-28] MEDS: lamoTRIgine 100 MG Tablet PO (21:38)
--- NOTE | 2018-12-29 01:28 | NURSING ---
REVIEWED AND AGREE WITH CROZE MACHINE OPERATOR'S FIM AND HANDOFF CHARTING.
[2018-12-29] MEDS: Baclofen 10 MG Tablet 5 MG PO ×3 (05:58→20:34)
[2018-12-29] MEDS: Menthol/Lanolin/Calamine/Znox 113 GM Tube 1 APPLIC TOPICAL ×2 (05:59→20:31)
[2018-12-29] MEDS: Oxybutynin 5 MG Tablet 10 MG PO ×2 (07:38→20:32)
[2018-12-29] MEDS: Senna/Docusate Sodium 1 Tablet 2 TABLET PO (07:38)
[2018-12-29] MEDS: Ascorbic Acid 500 MG Tablet 1500 MG PO (07:38)
[2018-12-29] MEDS: Gabapentin 600 MG Tablet PO ×2 (07:38→20:33)
[2018-12-29] MEDS: HYDROcodone Bitartrate/Apap 5/325 Tablet PO ×2 (08:19→20:40)
[2018-12-29 09:45] VITALS: BP 102/68; PULSE 82; RESP 16; TEMP 36.5; O2SAT 95
[2018-12-29 11:24] VITALS: PULSE 70
[2018-12-29] MEDS: dilTIAZem CD 240 MG Capsule PO (11:24)
[2018-12-29] MEDS: APIXABAN 5 MG TABLET PO ×2 (11:24→20:30)
[2018-12-29] MEDS: FLUoxetine 20 MG Capsule 40 MG PO (11:24)
[2018-12-29] MEDS: Metoprolol Tartrate 50 MG Tablet PO ×2 (11:24→20:33)
[2018-12-29] MEDS: Furosemide 40 MG Tablet PO ×2 (11:25→18:13)
[2018-12-29 18:39] VITALS: BP 100/53; PULSE 73; RESP 16; TEMP 37.1; O2SAT 97
[2018-12-29 20:22] VITALS: BP 102/56
[2018-12-29] MEDS: traZODone 50 MG Tablet 25 MG PO (20:32)
[2018-12-29 20:33] VITALS: BP 102/56; PULSE 76
[2018-12-29] MEDS: Atorvastatin Calcium 20 MG Tablet PO (20:33)
[2018-12-29] MEDS: lamoTRIgine 100 MG Tablet PO (20:35)
[2018-12-29 22:00] VITALS: PULSE 73; RESP 16
[2018-12-30] MEDS: Menthol/Lanolin/Calamine/Znox 113 GM Tube 1 APPLIC TOPICAL ×2 (05:21→20:21)
[2018-12-30] MEDS: Baclofen 10 MG Tablet 5 MG PO ×3 (05:22→20:27)
[2018-12-30] MEDS: HYDROcodone Bitartrate/Apap 5/325 Tablet PO ×3 (05:25→20:28)
[2018-12-30 07:21] VITALS: BP 101/63; PULSE 78; RESP 17; TEMP 36.6; O2SAT 97
[2018-12-30 07:45] VITALS: PULSE 78
[2018-12-30] MEDS: APIXABAN 5 MG TABLET PO ×2 (07:45→20:27)
[2018-12-30] MEDS: Ascorbic Acid 500 MG Tablet 1500 MG PO (07:45)
[2018-12-30] MEDS: Gabapentin 600 MG Tablet PO ×2 (07:45→20:28)
[2018-12-30] MEDS: dilTIAZem CD 240 MG Capsule PO (07:45)
[2018-12-30] MEDS: Oxybutynin 5 MG Tablet 10 MG PO ×2 (07:45→20:26)
[2018-12-30] MEDS: Metoprolol Tartrate 50 MG Tablet PO (07:45)
[2018-12-30] MEDS: FLUoxetine 20 MG Capsule 40 MG PO (07:45)
[2018-12-30] MEDS: Furosemide 40 MG Tablet PO ×2 (07:45→17:14)
[2018-12-30 17:14] VITALS: BP 98/66; PULSE 70
[2018-12-30] MEDS: traZODone 50 MG Tablet 25 MG PO (20:26)
[2018-12-30] MEDS: lamoTRIgine 100 MG Tablet PO (20:27)
[2018-12-30] MEDS: Atorvastatin Calcium 20 MG Tablet PO (20:27)
[2018-12-30 20:37] VITALS: BP 98/64; PULSE 61; RESP 18; TEMP 36.8; O2SAT 92
--- NOTE | 2018-12-31 04:20 | NURSING ---
Reviewed and agree with RIG SUPERINTENDENT documentation and FIMs charting.
[2018-12-31] MEDS: Baclofen 10 MG Tablet 5 MG PO ×3 (06:37→21:50)
[2018-12-31] MEDS: Menthol/Lanolin/Calamine/Znox 113 GM Tube 1 APPLIC TOPICAL ×2 (06:37→21:52)
[2018-12-31 07:00] VITALS: BP 106/66; PULSE 86; RESP 18; TEMP 36.7; O2SAT 92
[2018-12-31] MEDS: Ascorbic Acid 500 MG Tablet 1500 MG PO (09:51)
[2018-12-31] MEDS: Gabapentin 600 MG Tablet PO ×2 (09:51→21:51)
[2018-12-31 09:52] VITALS: BP 106/66; PULSE 86
[2018-12-31] MEDS: Oxybutynin 5 MG Tablet 10 MG PO ×2 (09:52→21:49)
[2018-12-31] MEDS: HYDROcodone Bitartrate/Apap 5/325 Tablet PO ×2 (09:52→21:49)
[2018-12-31] MEDS: dilTIAZem CD 240 MG Capsule PO (09:52)
[2018-12-31] MEDS: FLUoxetine 20 MG Capsule 40 MG PO (09:52)
[2018-12-31] MEDS: Metoprolol Tartrate 50 MG Tablet PO (09:52)
[2018-12-31] MEDS: Furosemide 40 MG Tablet PO ×2 (09:53→17:38)
[2018-12-31] MEDS: APIXABAN 5 MG TABLET PO ×2 (09:53→21:52)
[2018-12-31 18:14] VITALS: BP 98/58; PULSE 75; RESP 16; TEMP 36.9; O2SAT 96
[2018-12-31] MEDS: lamoTRIgine 100 MG Tablet PO (21:49)
[2018-12-31] MEDS: Atorvastatin Calcium 20 MG Tablet PO (21:50)
[2018-12-31] MEDS: traZODone 50 MG Tablet 25 MG PO (21:51)
[2018-12-31 21:55] VITALS: BP 98/58
[2018-12-31] MEDS: Senna/Docusate Sodium 1 Tablet 2 TABLET PO (22:04)
[2019-01-01] MEDS: Baclofen 10 MG Tablet 5 MG PO ×3 (06:19→20:25)
[2019-01-01] MEDS: Menthol/Lanolin/Calamine/Znox 113 GM Tube 1 APPLIC TOPICAL ×2 (06:22→20:27)
[2019-01-01 07:00] VITALS: BP 95/69; PULSE 79; RESP 18; TEMP 36.6; O2SAT 96
[2019-01-01 08:23] VITALS: BP 129/66
[2019-01-01 08:26] VITALS: PULSE 79
[2019-01-01] MEDS: Gabapentin 600 MG Tablet PO ×2 (08:26→20:25)
[2019-01-01] MEDS: FLUoxetine 20 MG Capsule 40 MG PO (08:26)
[2019-01-01] MEDS: Metoprolol Tartrate 50 MG Tablet PO (08:26)
[2019-01-01] MEDS: Furosemide 40 MG Tablet PO ×2 (08:26→17:00)
[2019-01-01] MEDS: Ascorbic Acid 500 MG Tablet 1500 MG PO (08:27)
[2019-01-01] MEDS: Senna/Docusate Sodium 1 Tablet 2 TABLET PO ×2 (08:27→20:23)
[2019-01-01] MEDS: dilTIAZem CD 240 MG Capsule PO (08:27)
[2019-01-01] MEDS: APIXABAN 5 MG TABLET PO ×2 (08:28→20:25)
[2019-01-01] MEDS: Oxybutynin 5 MG Tablet 10 MG PO ×2 (08:28→20:25)
[2019-01-01] MEDS: HYDROcodone Bitartrate/Apap 5/325 Tablet PO ×2 (10:29→17:02)
[2019-01-01 20:10] VITALS: BP 92/41; PULSE 66; RESP 18; TEMP 37.2; O2SAT 95
[2019-01-01 20:21] VITALS: BP 92/41; PULSE 66
[2019-01-01] MEDS: Atorvastatin Calcium 20 MG Tablet PO (20:24)
[2019-01-01] MEDS: traZODone 50 MG Tablet 25 MG PO (20:24)
[2019-01-01] MEDS: lamoTRIgine 100 MG Tablet PO (20:24)
[2019-01-02] MEDS: Baclofen 10 MG Tablet 5 MG PO ×3 (04:57→21:03)
[2019-01-02] MEDS: HYDROcodone Bitartrate/Apap 5/325 Tablet PO ×3 (04:57→21:02)
[2019-01-02 07:18] VITALS: BP 108/50; PULSE 89; RESP 18; TEMP 36.4; O2SAT 93
[2019-01-02] MEDS: Polyethylene Glycol 3350 17 GM PACKET PO (08:21)
[2019-01-02] MEDS: Menthol/Lanolin/Calamine/Znox 113 GM Tube 1 APPLIC TOPICAL ×2 (08:21→21:06)
[2019-01-02] MEDS: Furosemide 40 MG Tablet PO ×2 (08:22→17:38)
[2019-01-02] MEDS: FLUoxetine 20 MG Capsule 40 MG PO (08:22)
[2019-01-02] MEDS: dilTIAZem CD 240 MG Capsule PO (08:22)
[2019-01-02 08:23] VITALS: BP 108/50; PULSE 89
[2019-01-02] MEDS: Gabapentin 600 MG Tablet PO ×2 (08:23→21:01)
[2019-01-02] MEDS: Ascorbic Acid 500 MG Tablet 1500 MG PO (08:23)
[2019-01-02] MEDS: Metoprolol Tartrate 50 MG Tablet PO ×2 (08:23→21:02)
[2019-01-02] MEDS: Senna/Docusate Sodium 1 Tablet 2 TABLET PO (08:23)
[2019-01-02] MEDS: Oxybutynin 5 MG Tablet 10 MG PO ×2 (08:24→21:03)
[2019-01-02] MEDS: APIXABAN 5 MG TABLET PO ×2 (08:26→21:01)
--- NOTE | 2019-01-02 16:10 | NURSING ---
pt ambulated x1 assist with walker x1 lap through hallway. Pt also completed nustep x15 minutes. Tolerated well.
[2019-01-02 20:00] VITALS: BP 100/61; PULSE 70; RESP 16; TEMP 36.7
[2019-01-02] MEDS: traZODone 50 MG Tablet 25 MG PO (21:01)
[2019-01-02 21:02] VITALS: BP 100/61; PULSE 70
[2019-01-02] MEDS: Atorvastatin Calcium 20 MG Tablet PO (21:03)
[2019-01-02] MEDS: lamoTRIgine 100 MG Tablet PO (21:06)
[2019-01-03] MEDS: Baclofen 10 MG Tablet 5 MG PO ×3 (05:54→20:55)
[2019-01-03] MEDS: HYDROcodone Bitartrate/Apap 5/325 Tablet PO ×3 (05:55→21:26)
[2019-01-03] MEDS: Menthol/Lanolin/Calamine/Znox 113 GM Tube 1 APPLIC TOPICAL ×2 (05:58→20:52)
[2019-01-03] MEDS: Oxybutynin 5 MG Tablet 10 MG PO ×2 (08:05→21:00)
[2019-01-03] MEDS: Ascorbic Acid 500 MG Tablet 1500 MG PO (08:05)
[2019-01-03] MEDS: FLUoxetine 20 MG Capsule 40 MG PO (08:05)
[2019-01-03] MEDS: dilTIAZem CD 240 MG Capsule PO (08:05)
[2019-01-03 08:06] VITALS: BP 105/59; PULSE 61
[2019-01-03] MEDS: Furosemide 40 MG Tablet PO ×2 (08:06→17:11)
[2019-01-03] MEDS: Metoprolol Tartrate 50 MG Tablet PO (08:06)
[2019-01-03] MEDS: APIXABAN 5 MG TABLET PO ×2 (08:06→21:01)
[2019-01-03] MEDS: Gabapentin 600 MG Tablet PO ×2 (08:06→21:01)
[2019-01-03 08:54] VITALS: BP 105/57; PULSE 61; RESP 18; TEMP 36.6; O2SAT 96
--- NOTE | 2019-01-03 10:21 | CASEMGMT ---
Team meeting held. Patient present. Collaborating with patient and team, discharge date set for 01/07/19 pending if insurance approves until stated discharge date. Patient with insurance update due on this day and aware that continued stay approval is not guaranteed. Patient plans to discharge to home with brother and significant other. Patient to follow up with orthopedics surgeon on further therapy recommendation. Therapy providing patient with list of home exercises. Patient reporting to have a walker already set up within the home and to have family that is able to provide transportation home for patient at time of discharge. Support given. Proposed discharge date: 01/07/19 PLAN: Discharge to home with significant other and family. Waldemar ESTRELLA, CAMILA
--- NOTE | 2019-01-03 13:14 | CASEMGMT ---
Insurance Clinical information sent. Pending continued stay approval. Auth#[id number] Waldemar ESTRELLA, CAMILA
--- NOTE | 2019-01-03 14:07 | PCM.PN.NEU ---
Patient Problems: Active and Suspected Problems (Last Updated 04/29/18 @ 15:18 by Cee Mcnulty DO) Debility (Acute) Subjective: No issues overnight. Care discussed with the nursing staff. Staffed in the team meeting today. All questions were answered. Further therapy details per PT/OT notes. - Physical Exam General: Alert HEENT: Normocephalic Neck: Supple Lungs: Normal air movement Cardiovascular: Normal S1, Normal S2 Abdomen: Bowel Sounds Present Extremities: No cyanosis Neurological: Cranial nerves II-XII grossly intact, Deep Tendon Reflexes 2+/4 and Symmetrical, Neuro grossly intact, Motor Exam 5/5 strength throughout, Muscle tone normal, Sensory exam intact to light touch and pain, Coordination normal Psych/Mental Status: Normal Affect Vital Signs Temp Pulse Resp BP Pulse Ox 97.8 F 61 18 105/57 L 96 01/03/19 08:54 01/03/19 08:54 01/03/19 08:54 01/03/19 08:54 01/03/19 08:54 Oxygen Flow Rate (L/min) 2 Oxygen Delivery Method Room Air Weight: 121.2 kg Body Mass Index (BMI) 41.3 Intake and Output for Last 24 Hours 01/01/19 01/02/19 01/03/19 23:59 23:59 23:59 Intake Total 880 / 880 Balance 880 / 880 Medical Necessity - Tobacco Use Smoking Status: Former smoker Assessment/Plan All Active Problems (Last Updated 04/29/18 @ 15:18 by Cee Mcnulty DO) Acute fall (Acute) Fracture of femur, distal, left, closed (Acute) Debility (Acute) Acute exacerbation of chronic obstructive pulmonary disease (COPD) (Resolved) Parainfluenza virus bronchopneumonia (Resolved) History of MRSA infection (Resolved) Non-healing wound of lower extremity (Acute) Allergic reaction due to correct medicinal substance properly administered (Resolved) Atrial fibrillation with RVR (Resolved) CAP (community acquired pneumonia) (Resolved) Cellulitis of lower leg (Resolved) Influenza B (Resolved) Laceration of head (Resolved) Metabolic alkalosis (Resolved) Pneumonia (Resolved) Syncope and collapse (Resolved) The patient is a 63 year old F with PMH HTN, Afib on Eliquis, LUIS, morbid obesity, COPD, GERD, chronic non healing ulcer bilateral LE, Lumbar spondylosis with lumbar radiculopathy and degenerative disc disease, depression/anxiety admitted to [facility] on 12/07/18 with debility s/p fall and left distal femur closed fracture s/p revision total left knee replacement done by Dr. Jenkins on 12/04/18, for >3 hrs therapy daily with a goal of returning back home at or near her prior level of functional independence. Per patient she fell on ice on 12/03/18, had femur fracture, per patient she hit her back of the head also, but denies any LOC, had some double vision since but has improved, denies any MARINO. Lives with her BF and brother in an apartment, has 2 steps to go into the house, does not use cane or walker at baseline, denies any frequent falls, does drive and does not need any assistance for her ADLs at baseline. Per patient she has chronic low back pain, does go to pain management for the same. Has occasional radicular symptoms but denies the same at present. Likely discharge Thursday01/07/2019. Plan -PT for gait stability and balance -OT for ADLs -Analgesics PRN -Bowel protocol -Left distal closed femur fracture s/p revision total left knee replacement- further postsurgical management per orthopedic Dr. Jenkins's recommendation. Per Dr. Jenkins's further recommendation doxycycline was given for 14 days. WBCs 6.3 (12/26/2018). -Orthostatic vitals were positive initially during the admission to [facility]- maintain hydration, compression stockings as needed. Later resolved -Dizziness and light headedness per PT/OT after patient walks a few steps- probably orthostatic but CT head w/o contrast-reported nothing acute, CT head was done as she had hit the back of the head when she fell on 12/01/18 per patient. Per patient she does not want to get MRI brain due to claustrophobia. 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 Refer to Neurosurgery as outpatient. CTA neck reported to show mediastinal adenopathy partially visualized. Will defer further evaluation to hospitalist. ?Muscle spasms?patient was started on baclofen 10 mg p.o. [address] Harris about a month ago. Per patient baclofen has not helped much. decreased to baclofen to 5 mg p.o. 3 times daily. -HTN-on Lasix, Metoprolol and Diltiazem. BP controlled -HLD- on atorvastatin -Afib-On Eliquis 5mg PO BID. Rate controlled. -Chronic low back pain- on gabapentin 600 mg PO BID and Baclofen -Anxiety/mood d/o- on Prozac and Lamictal 100 mg PO q hs. -Urinary disturbances- on Ditropan -GI/DVT prophylaxis- ON Eliquis -Fall precautions -Further medical management per hospitalist recommendation. Hospitalist consult -Follow with PCP, Orthopedic surgeon Dr. Jenkins, Neurosurgery and Cardiology as outpatient after discharge.
--- NOTE | 2019-01-03 15:16 | PCM.RU.DC ---
Rehab Discharge Summary DATE OF ADMISSION: 12/07/18 DATE OF DISCHARGE: 01/07/2019 - Rehab Diagnosis Debility s/p fall and left distal femur closed fracture s/p revision total left knee replacement Patient Problems: Active and Suspected Problems (Last Updated 04/29/18 @ 15:18 by Cee Mcnulty DO) Debility (Acute) - Physical Exam Vital Signs Temp Pulse Resp BP Pulse Ox 97.8 F 61 18 105/57 L 96 01/03/19 08:54 01/03/19 08:54 01/03/19 08:54 01/03/19 08:54 01/03/19 08:54 Oxygen Flow Rate (L/min) 2 Oxygen Delivery Method Room Air Weight: 121.2 kg Body Mass Index (BMI) 41.3 Intake and Output for Last 24 Hours 01/01/19 01/02/19 01/03/19 23:59 23:59 23:59 Intake Total 880 / 880 Balance 880 / 880 Discharge Diet: - - Regular diet Discharge Activity: May Not Drive Weight Bearing Status: Partial weight bearing Call your doctor if your incision/area has: Continuous Slow Oozing, Sudden Increased Bleeding, Increased Pain/ Swelling, Increased Redness, Foul Smelling Discharge, Swelling at the incision site Call your doctor if you observe: Fever of 101 or Higher, Coldness, Increased Pain, Numbness or Tingling, Change in Color, Inability to urinate, Inability to have a bowel movement, Using more than one pad per hour, Shortness of breath, Dizziness, Fainting spells, Swelling in the ankles, Chest pain, Prolonged hiccoughing, Increased palpitations (irregular heartbeat), Calf discomfort, Uncontrolled pain Cleanse incision/area with: - - per ortho recommendations Home Medications: Medications to take at Discharge Furosemide 40 mg PO BID 02/05/16 fluoxetine 40 mg capsule 40 mg PO DAILY 12/29/17 apixaban 5 mg tablet 5 mg PO BID tab 07/21/18 Lamotrigine [Lamictal] 100 mg PO QHS 08/06/18 cholecalciferol (vitamin D3) 50,000 unit capsule 50,000 unit PO LUDWIG 30 Days #4 cap 09/07/18 gabapentin 600 mg tablet 600 mg PO BID 30 Days #30 tab 09/07/18 Ascorbic Acid [Vitamin C] 1,500 mg PO DAILY 10/27/18 Metoprolol Tartrate 75 mg PO BID 10/27/18 Oxybutynin Chloride 10 mg PO BID 10/27/18 Potassium Chloride [Klor-Con M20] 40 meq PO BID 10/27/18 Simvastatin 40 mg PO QHS 10/27/18 Diltiazem HCl [Diltiazem 24Hr ER] 240 mg PO DAILY 12/02/18 Baclofen [Lioresal] 5 mg PO TID tablet 01/03/19 Hydrocodone Bitart/Apap 5-325 [[place] 5/325] 1 tablet PO Q6H PRN PRN 10 Days #40 tablet 01/03/19 traZODone [Desyrel] 25 mg PO QHS tablet 01/03/19 Following Prescrptions Were Given to Patient: Hydrocodone Bitart/Apap 5-325 [[place] 5/325] 1 tablet PO Q6H PRN PRN 10 Days #40 tablet PRN Reason: Severe Pain (-08/18) Primary Care Physician: Osiel Grimaldo Chi, MD [Primary Care Provider] - Please follow up with your Primary Care Physician in: Follow up with PCP in 1-2 weeks Please Follow Up With: Gregory When: Follow up with Orthopedic surgeon in 1-2 weeks When: Follow with Neurosurgery REGLA When: Follow up with Cardiology Patient Instructions: What Is Atrial Flutter/Atrial Fibrillation?, What Is Type 2 Diabetes?, What is COPD?, Your High Blood Pressure Risk Factors, Diabetes and Kidney Disease, Discharge Instructions for Atrial Fibrillation, Discharge Instructions: COPD, Discharge Instructions for High Blood Pressure (Hypertension), Deciding on Bariatric Surgery Rehab Course The patient is a 63 year old F with PMH HTN, Afib on Eliquis, LUIS, morbid obesity, COPD, GERD, chronic non healing ulcer bilateral LE, Lumbar spondylosis with lumbar radiculopathy and degenerative disc disease, depression/anxiety admitted to [facility] on 12/07/18 with debility s/p fall and left distal femur closed fracture s/p revision total left knee replacement done by Dr. Jenkins on 12/04/18, for >3 hrs therapy daily with a goal of returning back home at or near her prior level of functional independence. Per patient she fell on ice on 12/03/18, had femur fracture, per patient she hit her back of the head also, but denies any LOC, had some double vision since but has improved, denies any MARINO. Lives with her BF and brother in an apartment, has 2 steps to go into the house, does not use cane or walker at baseline, denies any frequent falls, does drive and does not need any assistance for her ADLs at baseline. Per patient she has chronic low back pain, does go to pain management for the same. Has occasional radicular symptoms but denies the same at present. Per Dr. Jenkins's further recommendation doxycycline was given for 14 days. WBCs 6.3 (12/26/2018). Patient was orthostatic during the admission, also had dizziness, for which CT head w/o contrast was done and-reported nothing acute. Per patient she does not want to get MRI brain due to claustrophobia. 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 CTA neck reported to show mediastinal adenopathy partially visualized. Wound care consult was obtained for left posterior calf wound which was discovered upon the removal of immobilize for the first time and recommendations followed with resulting improvement in the wound. Patient tolerated therapies well, had further uncomplicated hospital course. Hospitalist consult was obtained for medical management and recommendations followed. Given the size of the left PICA aneurysm discussed in detail with the patient the need to see neurosurgery REGLA as outpatient for further intervention. She understands the same, counseled not to smoke and avoid hypertension. Patient to follow up with PCP (PCP to decide further management evaluation of mediastinal lymphadenopathy and decision about getting CT chest), Orthopedics surgery Dr. Jenkins, Neurosurgery (for left PICA aneurysm) and Cardiology (for Afib) as outpatient. Meaningful Use Info Meaningful Use Diagnoses (Choose all that apply): None applicable
--- NOTE | 2019-01-03 16:28 | PN_ITS ---
Patient Problems: Active and Suspected Problems (Last Updated 04/29/18 @ 15:18 by Cee Mcnulty DO) Debility (Acute) Subjective: Patient seen did discuss results of CT of the neck which demonstrated Mediastinal adenopathy patient was informed to follow-up with her primary care physician Dr. Grimaldo for repeat CAT scan in 3 months. Objective: GENERAL: cooperative HEENT: Atraumatic; moist oral mucosa EYES; Anicteric, Normal Conjunctiva NECK; supple, normal thyroid, no distended JVD. RESPIRATORY: Diminished to auscultation bilaterally, CARDIOVASCULAR: Regular S1 S2, no audible murmurs GI: soft, non-tender, normoactive bowel sounds, : No Renal angle tenderness; EXTREMITIES: No edema, no clubbing, no cyanosis. MUSCULOSKELETAL: left Knee surgical dressing NEURO: Awake; no lateralizing signs. SKIN: No Rash PSYCH; Normal affect Vitals/I&O's: Vital Signs Temp Pulse Resp BP Pulse Ox 97.8 F 61 18 105/57 L 96 01/03/19 08:54 01/03/19 08:54 01/03/19 08:54 01/03/19 08:54 01/03/19 08:54 Oxygen Flow Rate (L/min) 2 Oxygen Delivery Method Room Air Weight: 121.2 kg Body Mass Index (BMI) 41.3 Intake and Output for Last 24 Hours 01/01/19 01/02/19 01/03/19 23:59 23:59 23:59 Intake Total 880 / 880 Balance 880 / 880 Current Medications Acetaminophen (Tylenol) 650 mg PO Q6H PRN PRN PRN Reason: Mild Pain (scale 0-3)/T>100.7 Last Admin: 12/28/18 01:34 Dose: 650 mg Hydrocodone Bitart/Acetaminophen ([place] 5mg-325mg) 1 tablet PO Q6H PRN PRN PRN Reason: SEVERE PAIN (6-10/10) Last Admin: 01/03/19 14:46 Dose: 1 tablet Apixaban (Eliquis) 5 mg PO BID [facility] Last Admin: 01/03/19 08:06 Dose: 5 mg Ascorbic Acid (Vitamin C) 1,500 mg PO DAILY [facility] Last Admin: 01/03/19 08:05 Dose: 1,500 mg Atorvastatin Calcium (Lipitor) 20 mg PO QHS [facility] Last Admin: 01/02/19 21:03 Dose: 20 mg Baclofen (Lioresal) 5 mg PO TID [facility] Last Admin: 01/03/19 14:44 Dose: 5 mg Bisacodyl (Dulcolax) 10 mg RECTAL DAILY PRN PRN PRN Reason: Constipation Last Admin: 12/09/18 01:56 Dose: 10 mg Calamine/Phenol (Calmoseptine Ointment) 1 applic TOPICAL BID@0600,2200 [facility]; Protocol Last Admin: 01/03/19 05:58 Dose: 1 applicatio Diltiazem HCl (Cardizem Cd) 240 mg PO DAILY [facility] Last Admin: 01/03/19 08:05 Dose: 240 mg Diphenhydramine HCl (Benadryl) 25 mg PO TID PRN PRN PRN Reason: ITCHING Ergocalciferol (Vitamin D) 50,000 unit PO LUDWIG [facility] Last Admin: 01/02/19 08:22 Dose: 50,000 unit Fluoxetine HCl (Prozac) 40 mg PO DAILY [facility] Last Admin: 01/03/19 08:05 Dose: 40 mg Furosemide (Lasix) 40 mg PO BIDLX [facility] Last Admin: 01/03/19 08:06 Dose: 40 mg Gabapentin (Neurontin) 600 mg PO BID [facility] Last Admin: 01/03/19 08:06 Dose: 600 mg Lamotrigine (Lamictal) 100 mg PO QHS [facility] Last Admin: 01/02/19 21:06 Dose: 100 mg Magnesium Hydroxide (Milk Of Magnesia) 30 ml PO .PRN X 1 PRN PRN Reason: Constipation Last Admin: 12/08/18 19:58 Dose: 30 ml Metoprolol Tartrate (Lopressor (Beta Danielle)) 50 mg PO BID [facility] Last Admin: 01/03/19 08:06 Dose: 50 mg Oxybutynin Chloride (Ditropan) 10 mg PO BID [facility] Last Admin: 01/03/19 08:05 Dose: 10 mg Polyethylene Glycol (Miralax) 17 gm PO DAILY [facility] Last Admin: 01/03/19 08:07 Dose: Not Given Potassium Chloride (K-Dur) 40 meq PO BIDCM [facility] Last Admin: 01/03/19 08:05 Dose: 40 meq Senna/Docusate Sodium (Senokot-S, Sena-Colace) 2 tablet PO BID [facility] Last Admin: 01/03/19 08:07 Dose: Not Given Trazodone HCl (Desyrel) 25 mg PO QHS [facility] Last Admin: 01/02/19 21:01 Dose: 25 mg Medical Necessity - Tobacco Use Smoking Status: Former smoker Assessment/Plan All Active Problems (Last Updated 04/29/18 @ 15:18 by Cee Mcnulty DO) Acute fall (Acute) Fracture of femur, distal, left, closed (Acute) Debility (Acute) Acute exacerbation of chronic obstructive pulmonary disease (COPD) (Resolved) Parainfluenza virus bronchopneumonia (Resolved) History of MRSA infection (Resolved) Non-healing wound of lower extremity (Acute) Allergic reaction due to correct medicinal substance properly administered (Resolved) Atrial fibrillation with RVR (Resolved) CAP (community acquired pneumonia) (Resolved) Cellulitis of lower leg (Resolved) Influenza B (Resolved) Laceration of head (Resolved) Metabolic alkalosis (Resolved) Pneumonia (Resolved) Syncope and collapse (Resolved) Patient is a 63-year-old lady who slipped on ice injuring her left knee imaging studies obtained on admission demonstrated Comminuted and dorsally angulated fracture of the distal femur, involving the total knee arthroplasty. Admitted to regular nursing floor with consultation placed to orthopedic surgery patient underwent surgical intervention on 12/04/2018 patient was transferred to the inpatient rehab unit once her medical condition stabilized. 1. Acute comminuted, displaced, closed fracture of the distal femoral diaphysis, proximal to the femoral prosthesis secondary to fall. Patient underwent Revision left total knee replacement entire femoral and tibial component on 12/04/[address] Jenkins transferred to the inpatient rehab unit once her medical condition stabilized. Patient progress is rather been slow. 2. Paroxysmal atrial fibrillation rate controlled on systemic anticoagulation with Eliquis resumed on 12/05/2017 3. Anemia secondary to acute blood loss anemia following surgery monitoring H&H and has not require blood transfusion 4. COPD without acute exacerbation did continue patient home regimen 5. Obstructive sleep apnea 6. Morbid obesity with BMI of 41.6 7. Hypertension-blood pressure controlled, home medications continued with dose adjustment as needed 8. Depression with anxiety 9. Chronic alcoholic cirrhosis stable 10. Mediastinal adenopathy ; Informed of results instructed to follow-up with Dr. Grimaldo her primary care physician for subsequent follow-up 11. DVT prophylaxis on Eliquis Code Visit Inpatient E&M: 69193 Subs Hosp L2
[2019-01-03 19:23] VITALS: BP 95/59; PULSE 60; RESP 16; TEMP 36.7; O2SAT 93
[2019-01-03 20:54] VITALS: BP 93/58; PULSE 60
[2019-01-03] MEDS: Atorvastatin Calcium 20 MG Tablet PO (20:54)
[2019-01-03] MEDS: lamoTRIgine 100 MG Tablet PO (20:55)
[2019-01-03] MEDS: traZODone 50 MG Tablet 25 MG PO (21:00)
[2019-01-03] MEDS: Senna/Docusate Sodium 1 Tablet 2 TABLET PO (21:01)
[2019-01-03 22:00] VITALS: PULSE 60; RESP 16
[2019-01-04] MEDS: Baclofen 10 MG Tablet 5 MG PO ×3 (05:24→20:28)
[2019-01-04] MEDS: Menthol/Lanolin/Calamine/Znox 113 GM Tube 1 APPLIC TOPICAL (05:28)
[2019-01-04] MEDS: dilTIAZem CD 240 MG Capsule PO (07:48)
[2019-01-04] MEDS: Oxybutynin 5 MG Tablet 10 MG PO ×2 (07:49→20:28)
[2019-01-04] MEDS: Furosemide 40 MG Tablet PO ×2 (07:49→17:47)
[2019-01-04] MEDS: FLUoxetine 20 MG Capsule 40 MG PO (07:50)
[2019-01-04] MEDS: Ascorbic Acid 500 MG Tablet 1500 MG PO (07:50)
[2019-01-04 07:52] VITALS: PULSE 67
[2019-01-04] MEDS: Metoprolol Tartrate 50 MG Tablet PO (07:52)
[2019-01-04] MEDS: APIXABAN 5 MG TABLET PO ×2 (07:53→20:29)
[2019-01-04] MEDS: Gabapentin 600 MG Tablet PO ×2 (07:54→20:28)
[2019-01-04] MEDS: Senna/Docusate Sodium 1 Tablet 2 TABLET PO (07:55)
[2019-01-04] MEDS: HYDROcodone Bitartrate/Apap 5/325 Tablet PO ×2 (08:20→17:47)
[2019-01-04 08:29] VITALS: BP 101/66; PULSE 67; RESP 16; TEMP 36.5; O2SAT 94
--- NOTE | 2019-01-04 15:33 | CASEMGMT ---
Insurance Continued stay approved with next update due on 01/07/19. Auth#[id number] Waldemar ESTRELLA, CAMILA
[2019-01-04 20:00] VITALS: BP 99/52; PULSE 78; RESP 16; TEMP 37.2; O2SAT 94
[2019-01-04 20:02] VITALS: BP 99/52; PULSE 78; RESP 16; TEMP 37.2; O2SAT 94
[2019-01-04] MEDS: traZODone 50 MG Tablet 25 MG PO (20:28)
[2019-01-04] MEDS: lamoTRIgine 100 MG Tablet PO (20:28)
[2019-01-04] MEDS: Atorvastatin Calcium 20 MG Tablet PO (20:28)
[2019-01-04 20:29] VITALS: BP 99/52; PULSE 78
--- NOTE | 2019-01-05 01:39 | NURSING ---
Reviewed and agree with PARKING METER COLLECTOR documentation and FIMs charting.
[2019-01-05] MEDS: HYDROcodone Bitartrate/Apap 5/325 Tablet PO ×2 (06:00→22:11)
[2019-01-05] MEDS: Baclofen 10 MG Tablet 5 MG PO ×3 (06:02→21:59)
[2019-01-05] MEDS: Menthol/Lanolin/Calamine/Znox 113 GM Tube 1 APPLIC TOPICAL ×2 (06:03→22:02)
[2019-01-05 09:41] VITALS: BP 121/65; PULSE 86; RESP 18; TEMP 36.7; O2SAT 96
--- NOTE | 2019-01-05 09:41 | PCM.PN.HOSP ---
Patient Problems: Active and Suspected Problems (Last Updated 04/29/18 @ 15:18 by Cee Mcnulty DO) Debility (Acute) Subjective: Relatively uneventful night Objective: GENERAL: cooperative HEENT: Atraumatic; moist oral mucosa EYES; Anicteric, Normal Conjunctiva NECK; supple, normal thyroid, no distended JVD. RESPIRATORY: Diminished to auscultation bilaterally, CARDIOVASCULAR: Regular S1 S2, no audible murmurs GI: soft, non-tender, normoactive bowel sounds, : No Renal angle tenderness; EXTREMITIES: No edema, no clubbing, no cyanosis. MUSCULOSKELETAL: left Knee surgical dressing NEURO: Awake; no lateralizing signs. SKIN: No Rash PSYCH; Normal affect Vitals/I&O's: Vital Signs Temp Pulse Resp BP Pulse Ox 99 F 78 16 99/52 L 94 01/04/19 20:02 01/04/19 20:29 01/04/19 20:02 01/04/19 20:29 01/04/19 20:02 Oxygen Flow Rate (L/min) 2 Oxygen Delivery Method Room Air Weight: 121.2 kg Body Mass Index (BMI) 41.3 Intake and Output for Last 24 Hours 01/03/19 01/04/19 01/05/19 23:59 23:59 23:59 Intake Total 1320 / 1320 1200 / 1200 360 / 360 Balance 1320 / 1320 1200 / 1200 360 / 360 Current Medications Acetaminophen (Tylenol) 650 mg PO Q6H PRN PRN PRN Reason: Mild Pain (scale 0-3)/T>100.7 Last Admin: 12/28/18 01:34 Dose: 650 mg Hydrocodone Bitart/Acetaminophen ([place] 5mg-325mg) 1 tablet PO Q6H PRN PRN PRN Reason: SEVERE PAIN (6-10/10) Last Admin: 01/05/19 06:00 Dose: 1 tablet Apixaban (Eliquis) 5 mg PO BID [facility] Last Admin: 01/04/19 20:29 Dose: 5 mg Ascorbic Acid (Vitamin C) 1,500 mg PO DAILY [facility] Last Admin: 01/04/19 07:50 Dose: 1,500 mg Atorvastatin Calcium (Lipitor) 20 mg PO QHS [facility] Last Admin: 01/04/19 20:28 Dose: 20 mg Baclofen (Lioresal) 5 mg PO TID [facility] Last Admin: 01/05/19 06:02 Dose: 5 mg Bisacodyl (Dulcolax) 10 mg RECTAL DAILY PRN PRN PRN Reason: Constipation Last Admin: 12/09/18 01:56 Dose: 10 mg Calamine/Phenol (Calmoseptine Ointment) 1 applic TOPICAL BID@0600,2200 [facility]; Protocol Last Admin: 01/05/19 06:03 Dose: 1 applicatio Diltiazem HCl (Cardizem Cd) 240 mg PO DAILY [facility] Last Admin: 01/04/19 07:48 Dose: 240 mg Diphenhydramine HCl (Benadryl) 25 mg PO TID PRN PRN PRN Reason: ITCHING Ergocalciferol (Vitamin D) 50,000 unit PO LUDWIG [facility] Last Admin: 01/02/19 08:22 Dose: 50,000 unit Fluoxetine HCl (Prozac) 40 mg PO DAILY [facility] Last Admin: 01/04/19 07:50 Dose: 40 mg Furosemide (Lasix) 40 mg PO BIDLX [facility] Last Admin: 01/04/19 17:47 Dose: 40 mg Gabapentin (Neurontin) 600 mg PO BID [facility] Last Admin: 01/04/19 20:28 Dose: 600 mg Lamotrigine (Lamictal) 100 mg PO QHS [facility] Last Admin: 01/04/19 20:28 Dose: 100 mg Magnesium Hydroxide (Milk Of Magnesia) 30 ml PO .PRN X 1 PRN PRN Reason: Constipation Last Admin: 12/08/18 19:58 Dose: 30 ml Metoprolol Tartrate (Lopressor (Beta Danielle)) 50 mg PO BID [facility] Last Admin: 01/04/19 20:29 Dose: Not Given Oxybutynin Chloride (Ditropan) 10 mg PO BID [facility] Last Admin: 01/04/19 20:28 Dose: 10 mg Polyethylene Glycol (Miralax) 17 gm PO DAILY [facility] Last Admin: 01/04/19 07:57 Dose: Not Given [facility]assium Ch[facility] ([facility]Dur) [facility] Last Admin: 01/04/19 17:47 Dose: 40 meq Senna/Docusate Sodium (Senokot-S, Sena-Colace) 2 tablet PO BID [facility] Last Admin: 01/04/19 20:30 Dose: Not Given Trazodone HCl (Desyrel) 25 mg PO QHS [facility] Last Admin: 01/04/19 20:28 Dose: 25 mg Medical Necessity - Tobacco Use Smoking Status: Former smoker Assessment/Plan All Active Problems (Last Updated 04/29/18 @ 15:18 by Cee Mcnulty DO) Acute fall (Acute) Fracture of femur, distal, left, closed (Acute) Debility (Acute) Acute exacerbation of chronic obstructive pulmonary disease (COPD) (Resolved) Parainfluenza virus bronchopneumonia (Resolved) History of MRSA infection (Resolved) Non-healing wound of lower extremity (Acute) Allergic reaction due to correct medicinal substance properly administered (Resolved) Atrial fibrillation with RVR (Resolved) CAP (community acquired pneumonia) (Resolved) Cellulitis of lower leg (Resolved) Influenza B (Resolved) Laceration of head (Resolved) Metabolic alkalosis (Resolved) Pneumonia (Resolved) Syncope and collapse (Resolved) Patient is a 63-year-old lady who slipped on ice injuring her left knee imaging studies obtained on admission demonstrated Comminuted and dorsally angulated fracture of the distal femur, involving the total knee arthroplasty. Admitted to regular nursing floor with consultation placed to orthopedic surgery patient underwent surgical intervention on 12/04/2018 patient was transferred to the inpatient rehab unit once her medical condition stabilized. 1. Acute comminuted, displaced, closed fracture of the distal femoral diaphysis, proximal to the femoral prosthesis secondary to fall. Patient underwent Revision left total knee replacement entire femoral and tibial component on 12/04/[address] Jenkins transferred to the inpatient rehab unit once her medical condition stabilized. Patient progress is rather been slow. 2. Paroxysmal atrial fibrillation rate controlled on systemic anticoagulation with Eliquis resumed on 12/05/2017 3. Anemia secondary to acute blood loss anemia following surgery monitoring H&H and has not require blood transfusion 4. COPD without acute exacerbation did continue patient home regimen 5. Obstructive sleep apnea 6. Morbid obesity with BMI of 41.6 7. Hypertension-blood pressure controlled, home medications continued with dose adjustment as needed 8. Depression with anxiety 9. Chronic alcoholic cirrhosis stable 10. Mediastinal adenopathy ; Informed of results instructed to follow-up with Dr. Grimaldo her primary care physician for subsequent follow-up 11. DVT prophylaxis on Eliquis Code Visit Inpatient E&M: 14560 Subs Hosp L2
[2019-01-05 09:42] VITALS: BP 121/65; PULSE 86
[2019-01-05] MEDS: Metoprolol Tartrate 50 MG Tablet PO ×2 (09:42→21:59)
[2019-01-05] MEDS: Ascorbic Acid 500 MG Tablet 1500 MG PO (09:42)
[2019-01-05] MEDS: FLUoxetine 20 MG Capsule 40 MG PO (09:42)
[2019-01-05] MEDS: Senna/Docusate Sodium 1 Tablet 2 TABLET PO (09:42)
[2019-01-05] MEDS: Oxybutynin 5 MG Tablet 10 MG PO ×2 (09:43→22:00)
[2019-01-05] MEDS: Furosemide 40 MG Tablet PO ×2 (09:43→17:46)
[2019-01-05] MEDS: APIXABAN 5 MG TABLET PO ×2 (09:43→22:00)
[2019-01-05] MEDS: dilTIAZem CD 240 MG Capsule PO (09:43)
[2019-01-05] MEDS: Gabapentin 600 MG Tablet PO ×2 (09:43→21:59)
--- NOTE | 2019-01-05 15:05 | PCM.PN.NEU ---
Patient Problems: Active and Suspected Problems (Last Updated 04/29/18 @ 15:18 by Cee Mcnulty DO) Debility (Acute) Subjective: No issues overnight. Care discussed with the nursing staff. - Physical Exam General: Alert HEENT: Normocephalic Neck: Supple Lungs: Normal air movement Cardiovascular: Normal S1, Normal S2 Abdomen: Bowel Sounds Present Extremities: No cyanosis Neurological: Cranial nerves II-XII grossly intact, Deep Tendon Reflexes 2+/4 and Symmetrical, Neuro grossly intact, Motor Exam 5/5 strength throughout, Muscle tone normal, Sensory exam intact to light touch and pain, Coordination normal Psych/Mental Status: Normal Affect Vital Signs Temp Pulse Resp BP Pulse Ox 98.0 F 86 18 121/65 H 96 01/05/19 09:41 01/05/19 09:42 01/05/19 09:41 01/05/19 09:42 01/05/19 09:41 Oxygen Flow Rate (L/min) 2 Oxygen Delivery Method Room Air Weight: 121.2 kg Body Mass Index (BMI) 41.3 Intake and Output for Last 24 Hours 01/03/19 01/04/19 01/05/19 23:59 23:59 23:59 Intake Total 1320 / 1320 1200 / 1200 600 / 600 Balance 1320 / 1320 1200 / 1200 600 / 600 Medical Necessity - Tobacco Use Smoking Status: Former smoker Assessment/Plan All Active Problems (Last Updated 04/29/18 @ 15:18 by Cee Mcnulty DO) Acute fall (Acute) Fracture of femur, distal, left, closed (Acute) Debility (Acute) Acute exacerbation of chronic obstructive pulmonary disease (COPD) (Resolved) Parainfluenza virus bronchopneumonia (Resolved) History of MRSA infection (Resolved) Non-healing wound of lower extremity (Acute) Allergic reaction due to correct medicinal substance properly administered (Resolved) Atrial fibrillation with RVR (Resolved) CAP (community acquired pneumonia) (Resolved) Cellulitis of lower leg (Resolved) Influenza B (Resolved) Laceration of head (Resolved) Metabolic alkalosis (Resolved) Pneumonia (Resolved) Syncope and collapse (Resolved) The patient is a 63 year old F with PMH HTN, Afib on Eliquis, LUIS, morbid obesity, COPD, GERD, chronic non healing ulcer bilateral LE, Lumbar spondylosis with lumbar radiculopathy and degenerative disc disease, depression/anxiety admitted to [facility] on 12/07/18 with debility s/p fall and left distal femur closed fracture s/p revision total left knee replacement done by Dr. Jenkins on 12/04/18, for >3 hrs therapy daily with a goal of returning back home at or near her prior level of functional independence. Per patient she fell on ice on 12/03/18, had femur fracture, per patient she hit her back of the head also, but denies any LOC, had some double vision since but has improved, denies any MARINO. Lives with her BF and brother in an apartment, has 2 steps to go into the house, does not use cane or walker at baseline, denies any frequent falls, does drive and does not need any assistance for her ADLs at baseline. Per patient she has chronic low back pain, does go to pain management for the same. Has occasional radicular symptoms but denies the same at present. Likely discharge Thursday01/07/2019. Plan -PT for gait stability and balance -OT for ADLs -Analgesics PRN -Bowel protocol -Left distal closed femur fracture s/p revision total left knee replacement- further postsurgical management per orthopedic Dr. Jenkins's recommendation. Per Dr. Jenkins's further recommendation doxycycline was given for 14 days. WBCs 6.3 (12/26/2018). -Orthostatic vitals were positive initially during the admission to [facility]- maintain hydration, compression stockings as needed. Later resolved -Dizziness and light headedness per PT/OT after patient walks a few steps- probably orthostatic but CT head w/o contrast-reported nothing acute, CT head was done as she had hit the back of the head when she fell on 12/01/18 per patient. Per patient she does not want to get MRI brain due to claustrophobia. 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 Refer to Neurosurgery as outpatient. CTA neck reported to show mediastinal adenopathy partially visualized. Will defer further evaluation to hospitalist. ?Muscle spasms?patient was started on baclofen 10 mg p.o. [address] Harris about a month ago. Per patient baclofen has not helped much. decreased to baclofen to 5 mg p.o. 3 times daily. -HTN-on Lasix, Metoprolol and Diltiazem. BP controlled -HLD- on atorvastatin -Afib-On Eliquis 5mg PO BID. Rate controlled. -Chronic low back pain- on gabapentin 600 mg PO BID and Baclofen -Anxiety/mood d/o- on Prozac and Lamictal 100 mg PO q hs. -Urinary disturbances- on Ditropan -GI/DVT prophylaxis- ON Eliquis -Fall precautions -Further medical management per hospitalist recommendation. Hospitalist consult -Follow with PCP, Orthopedic surgeon Dr. Jenkins, Neurosurgery and Cardiology as outpatient after discharge.
--- NOTE | 2019-01-05 15:08 | PN.NEURO_ITS ---
Patient Problems: Active and Suspected Problems (Last Updated 04/29/18 @ 15:18 by Cee Mcnulty DO) Debility (Acute) Subjective: No issues overnight. Care discussed with the nursing staff. - Physical Exam General: Alert HEENT: Normocephalic Neck: Supple Lungs: Normal air movement Cardiovascular: Normal S1, Normal S2 Abdomen: Bowel Sounds Present Extremities: No cyanosis Neurological: Cranial nerves II-XII grossly intact, Deep Tendon Reflexes 2+/4 and Symmetrical, Neuro grossly intact, Motor Exam 5/5 strength throughout, Muscle tone normal, Sensory exam intact to light touch and pain, Coordination normal Psych/Mental Status: Normal Affect Vital Signs Temp Pulse Resp BP Pulse Ox 98.0 F 86 18 121/65 H 96 01/05/19 09:41 01/05/19 09:42 01/05/19 09:41 01/05/19 09:42 01/05/19 09:41 Oxygen Flow Rate (L/min) 2 Oxygen Delivery Method Room Air Weight: 121.2 kg Body Mass Index (BMI) 41.3 Intake and Output for Last 24 Hours 01/03/19 01/04/19 01/05/19 23:59 23:59 23:59 Intake Total 1320 / 1320 1200 / 1200 600 / 600 Balance 1320 / 1320 1200 / 1200 600 / 600 Medical Necessity - Tobacco Use Smoking Status: Former smoker Assessment/Plan All Active Problems (Last Updated 04/29/18 @ 15:18 by Cee Mcnulty DO) Acute fall (Acute) Fracture of femur, distal, left, closed (Acute) Debility (Acute) Acute exacerbation of chronic obstructive pulmonary disease (COPD) (Resolved) Parainfluenza virus bronchopneumonia (Resolved) History of MRSA infection (Resolved) Non-healing wound of lower extremity (Acute) Allergic reaction due to correct medicinal substance properly administered (Resolved) Atrial fibrillation with RVR (Resolved) CAP (community acquired pneumonia) (Resolved) Cellulitis of lower leg (Resolved) Influenza B (Resolved) Laceration of head (Resolved) Metabolic alkalosis (Resolved) Pneumonia (Resolved) Syncope and collapse (Resolved) The patient is a 63 year old F with PMH HTN, Afib on Eliquis, LUIS, morbid obesity, COPD, GERD, chronic non healing ulcer bilateral LE, Lumbar spondylosis with lumbar radiculopathy and degenerative disc disease, depression/anxiety a dmitted to [facility] on 12/07/18 with debility s/p fall and left distal femur closed fracture s/p revision total left knee replacement done by Dr. Jenkins on 12/04/18, for >3 hrs therapy daily with a goal of returning back home at or near her prior level of functional independence. Per patient she fell on ice on 12/03/18, had femur fracture, per patient she hit her back of the head also, but denies any LOC, had some double vision since but has improved, denies any MARINO. Lives with her BF and brother in an apartment, has 2 steps to go into the house, does not use cane or walker at baseline, denies any frequent falls, does drive and does not need any assistance for her ADLs at baseline. Per patient she has chronic low back pain, does go to pain management for the same. Has occasional radicular symptoms but denies the same at present. Likely discharge Thursday01/07/2019. Plan -PT for gait stability and balance -OT for ADLs -Analgesics PRN -Bowel protocol -Left distal closed femur fracture s/p revision total left knee replacement- further postsurgical management per orthopedic Dr. Jenkins's recommendation. Per Dr. Jenkins's further recommendation doxycycline was given for 14 days. WBCs 6.3 (12/26/2018). -Orthostatic vitals were positive initially during the admission to [facility]- maintain hydration, compression stockings as needed. Later resolved -Dizziness and light headedness per PT/OT after patient walks a few steps- probably orthostatic but CT head w/o contrast-reported nothing acute, CT head was done as she had hit the back of the head when she fell on 12/01/18 per patien t. Per patient she does not want to get MRI brain due to claustrophobia. 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 Refer to Neurosurgery as outpatient. CTA neck reported to show mediastinal adenopathy partially visualized. Will defer further evaluation to hospitalist. ?Muscle spasms?patient was started on baclofen 10 mg p.o. [address] Harris about a month ago. Per patient baclofen has not helped much. decreased to baclofen to 5 mg p.o. 3 times daily. -HTN-on Lasix, Metoprolol and Diltiazem. BP controlled -HLD- on atorvastatin -Afib-On Eliquis 5mg PO BID. Rate controlled. -Chronic low back pain- on gabapentin 600 mg PO BID and Baclofen -Anxiety/mood d/o- on Prozac and Lamictal 100 mg PO q hs. -Urinary disturbances- on Ditropan -GI/DVT prophylaxis- ON Eliquis -Fall precautions -Further medical management per hospitalist recommendation. Hospitalist consult -Follow with PCP, Orthopedic surgeon Dr. Jenkins, Neurosurgery and Cardiology as outpatient after discharge.
[2019-01-05 21:55] VITALS: BP 116/63; PULSE 66; RESP 16; TEMP 36.8; O2SAT 95
[2019-01-05 21:59] VITALS: BP 116/63; PULSE 66
[2019-01-05] MEDS: Atorvastatin Calcium 20 MG Tablet PO (21:59)
[2019-01-05] MEDS: lamoTRIgine 100 MG Tablet PO (22:00)
[2019-01-05] MEDS: traZODone 50 MG Tablet 25 MG PO (22:02)
[2019-01-06] MEDS: Baclofen 10 MG Tablet 5 MG PO ×3 (06:26→22:38)
[2019-01-06] MEDS: Menthol/Lanolin/Calamine/Znox 113 GM Tube 1 APPLIC TOPICAL ×2 (06:27→22:39)
[2019-01-06 09:45] VITALS: BP 110/62; PULSE 64; RESP 16; TEMP 36.6; O2SAT 97
[2019-01-06] MEDS: Senna/Docusate Sodium 1 Tablet 2 TABLET PO ×2 (09:50→22:37)
[2019-01-06] MEDS: Ascorbic Acid 500 MG Tablet 1500 MG PO (09:50)
[2019-01-06 09:51] VITALS: PULSE 64
[2019-01-06] MEDS: dilTIAZem CD 240 MG Capsule PO (09:51)
[2019-01-06] MEDS: Furosemide 40 MG Tablet PO ×2 (09:51→17:59)
[2019-01-06] MEDS: Metoprolol Tartrate 50 MG Tablet PO ×2 (09:51→22:37)
[2019-01-06] MEDS: Oxybutynin 5 MG Tablet 10 MG PO ×2 (09:51→22:38)
[2019-01-06] MEDS: FLUoxetine 20 MG Capsule 40 MG PO (09:51)
[2019-01-06] MEDS: Gabapentin 600 MG Tablet PO ×2 (09:51→22:37)
[2019-01-06] MEDS: APIXABAN 5 MG TABLET PO ×2 (09:51→22:38)
--- NOTE | 2019-01-06 10:48 | PN.NEURO_ITS ---
Patient Problems: Active and Suspected Problems (Last Updated 04/29/18 @ 15:18 by Cee Mcnulty DO) Debility (Acute) Subjective: No issues overnight. Care discussed with the nursing staff. Further therapy details per PT/OT notes - Physical Exam General: Alert HEENT: Normocephalic Neck: Supple Lungs: Normal air movement Cardiovascular: Normal S1, Normal S2 Abdomen: Bowel Sounds Present Extremities: No cyanosis Neurological: Cranial nerves II-XII grossly intact, Deep Tendon Reflexes 2+/4 and Symmetrical, Neuro grossly intact, Motor Exam 5/5 strength throughout, Muscle tone normal, Sensory exam intact to light touch and pain, Coordination normal Psych/Mental Status: Normal Affect Vital Signs Temp Pulse Resp BP Pulse Ox 97.8 F 64 16 110/62 97 01/06/19 09:45 01/06/19 09:51 01/06/19 09:45 01/06/19 09:45 01/06/19 09:45 Oxygen Flow Rate (L/min) 2 Oxygen Delivery Method Room Air Weight: 121.2 kg Body Mass Index (BMI) 41.3 Intake and Output for Last 24 Hours 01/04/19 01/05/19 01/06/19 23:59 23:59 23:59 Intake Total 1200 / 1200 600 / 600 Balance 1200 / 1200 600 / 600 Medical Necessity - Tobacco Use Smoking Status: Former smoker Assessment/Plan All Active Problems (Last Updated 04/29/18 @ 15:18 by Cee Mcnulty DO) Acute fall (Acute) Fracture of femur, distal, left, closed (Acute) Debility (Acute) Acute exacerbation of chronic obstructive pulmonary disease (COPD) (Resolved) Parainfluenza virus bronchopneumonia (Resolved) History of MRSA infection (Resolved) Non-healing wound of lower extremity (Acute) Allergic reaction due to correct medicinal substance properly administered (Resolved) Atrial fibrillation with RVR (Resolved) CAP (community acquired pneumonia) (Resolved) Cellulitis of lower leg (Resolved) Influenza B (Resolved) Laceration of head (Resolved) Metabolic alkalosis (Resolved) Pneumonia (Resolved) Syncope and collapse (Resolved) The patient is a 63 year old F with PMH HTN, Afib on Eliquis, LUIS, morbid obesity, COPD, GERD, chronic non healing ulcer bilateral LE, Lumbar spondylosis with lumbar radiculopathy and degenerative disc disease, depression/anxiety admitted to [facility] on 12/07/18 with debility s/p fall and left distal femur closed fracture s/p revision total left knee replacement done by Dr. Jenkins on 12/04/18, for >3 hrs therapy daily with a goal of returning back home at or near her prior level of functional independence. Per patient she fell on ice on 12/03/18, had femur fracture, per patient she hit her back of the head also, but denies any LOC, had some double vision since but has improved, denies any MARINO. Lives with her BF and brother in an apartment, has 2 steps to go into the house, does not use cane or walker at baseline, denies any frequent falls, does drive and does not need any assistance for her ADLs at baseline. Per patient she has chronic low back pain, does go to pain management for the same. Has occasional radicular symptoms but denies the same at present. Likely discharge Thursday01/07/2019. Plan -PT for gait stability and balance -OT for ADLs -Analgesics PRN -Bowel protocol -Left distal closed femur fracture s/p revision total left knee replacement- further postsurgical management per orthopedic Dr. Jenkins's recommendation. Per Dr. Jenkins's further recommendation doxycycline was given for 14 days. WBCs 6.3 (12/26/2018). -Orthostatic vitals were positive initially during the admission to [facility]- maintain hydration, compression stockings as needed. Later resolved -Dizziness and light headedness per PT/OT after patient walks a few steps- probably orthostatic but CT head w/o contrast-reported nothing acute, CT head was done as she had hit the back of the head when she fell on 12/01/18 per patient. Per patient she does not want to get MRI brain due to claustrophobia. 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 Refer to Neurosurgery as outpatient. CTA neck reported to show mediastinal adenopathy partially visualized. Will defer further evaluation to hospitalist. ?Muscle spasms?patient was started on baclofen 10 mg p.o. [address] Harris about a month ago. Per patient baclofen has not helped much. decreased to baclofen to 5 mg p.o. 3 times daily. -HTN-on Lasix, Metoprolol and Diltiazem. BP controlled -HLD- on atorvastatin -Afib-On Eliquis 5mg PO BID. Rate controlled. -Chronic low back pain- on gabapentin 600 mg PO BID and Baclofen -Anxiety/mood d/o- on Prozac and Lamictal 100 mg PO q hs. -Urinary disturbances- on Ditropan -GI/DVT prophylaxis- ON Eliquis -Fall precautions -Further medical management per hospitalist recommendation. Hospitalist consult -Follow with PCP, Orthopedic surgeon Dr. Jenkins, Neurosurgery and Cardiology as outpatient after discharge. Likely discharge 01/07/19
--- NOTE | 2019-01-06 13:41 | CASEMGMT ---
Social Work Met with patient in room. Patient planning to discharge to home with significant other and brother on 01/07/19. Patient voicing no further needs. Patient to follow up with Orthopedic surgeon on continued therapy recommendations. Patient family to provide transportation home for patient at time of discharge. Support given. Proposed discharge date: 01/07/19 PLAN: Discharge to home with family. Waldemar ESTRELLA, CAMILA
[2019-01-06] MEDS: HYDROcodone Bitartrate/Apap 5/325 Tablet PO (14:36)
[2019-01-06 19:43] VITALS: BP 94/58; PULSE 62; RESP 16; TEMP 36.8; O2SAT 95
[2019-01-06 22:32] VITALS: BP 105/64; PULSE 68
[2019-01-06 22:37] VITALS: BP 105/64; PULSE 68
[2019-01-06] MEDS: Atorvastatin Calcium 20 MG Tablet PO (22:37)
[2019-01-06] MEDS: lamoTRIgine 100 MG Tablet PO (22:38)
[2019-01-06] MEDS: traZODone 50 MG Tablet 25 MG PO (22:39)
[2019-01-07] MEDS: Baclofen 10 MG Tablet 5 MG PO (06:13)
[2019-01-07] MEDS: Menthol/Lanolin/Calamine/Znox 113 GM Tube 1 APPLIC TOPICAL (06:14)
[2019-01-07 07:00] VITALS: BP 114/70; PULSE 76; RESP 18; TEMP 36.5; O2SAT 92
--- NOTE | 2019-01-07 07:22 | PN_ITS ---
Patient Problems: Active and Suspected Problems (Last Updated 04/29/18 @ 15:18 by Cee Mcnulty DO) Debility (Acute) Subjective: Uneventful night plan is for patient to be discharged home today by neurology Objective: GENERAL: cooperative HEENT: Atraumatic; moist oral mucosa EYES; Anicteric, Normal Conjunctiva NECK; supple, normal thyroid, no distended JVD. RESPIRATORY: Diminished to auscultation bilaterally, CARDIOVASCULAR: Regular S1 S2, no audible murmurs GI: soft, non-tender, normoactive bowel sounds, : No Renal angle tenderness; EXTREMITIES: No edema, no clubbing, no cyanosis. MUSCULOSKELETAL: left Knee surgical dressing NEURO: Awake; no lateralizing signs. SKIN: No Rash PSYCH; Normal affect Vitals/I&O's: Vital Signs Temp Pulse Resp BP Pulse Ox 98.2 F 68 16 105/64 95 01/06/19 19:43 01/06/19 22:37 01/06/19 19:43 01/06/19 22:37 01/06/19 19:43 Oxygen Flow Rate (L/min) 2 Oxygen Delivery Method Room Air Weight: 121.2 kg Body Mass Index (BMI) 41.3 Intake and Output for Last 24 Hours 01/05/19 01/06/19 01/07/19 23:59 23:59 23:59 Intake Total 600 / 600 440 / 440 Balance 600 / 600 440 / 440 Current Medications Acetaminophen (Tylenol) 650 mg PO Q6H PRN PRN PRN Reason: Mild Pain (scale 0-3)/T>100.7 Last Admin: 12/28/18 01:34 Dose: 650 mg Hydrocodone Bitart/Acetaminophen ([place] 5mg-325mg) 1 tablet PO Q6H PRN PRN PRN Reason: SEVERE PAIN (6-10/10) Last Admin: 01/06/19 14:36 Dose: 1 tablet Apixaban (Eliquis) 5 mg PO BID [facility] Last Admin: 01/06/19 22:38 Dose: 5 mg Ascorbic Acid (Vitamin C) 1,500 mg PO DAILY [facility] Last Admin: 01/06/19 09:50 Dose: 1,500 mg Atorvastatin Calcium (Lipitor) 20 mg PO QHS [facility] Last Admin: 01/06/19 22:37 Dose: 20 mg Baclofen (Lioresal) 5 mg PO TID [facility] Last Admin: 01/07/19 06:13 Dose: 5 mg Bisacodyl (Dulcolax) 10 mg RECTAL DAILY PRN PRN PRN Reason: Constipation Last Admin: 12/09/18 01:56 Dose: 10 mg Calamine/Phenol (Calmoseptine Ointment) 1 applic TOPICAL BID@0600,2200 [facility]; Protocol Last Admin: 01/07/19 06:14 Dose: 1 applicatio Diltiazem HCl (Cardizem Cd) 240 mg PO DAILY [facility] Last Admin: 01/06/19 09:51 Dose: 240 mg Diphenhydramine HCl (Benadryl) 25 mg PO TID PRN PRN PRN Reason: ITCHING Ergocalciferol (Vitamin D) 50,000 unit PO LUDWIG [facility] Last Admin: 01/02/19 08:22 Dose: 50,000 unit Fluoxetine HCl (Prozac) 40 mg PO DAILY [facility] Last Admin: 01/06/19 09:51 Dose: 40 mg Furosemide (Lasix) 40 mg PO BIDLX [facility] Last Admin: 01/06/19 17:59 Dose: 40 mg Gabapentin (Neurontin) 600 mg PO BID [facility] Last Admin: 01/06/19 22:37 Dose: 600 mg Lamotrigine (Lamictal) 100 mg PO QHS [facility] Last Admin: 01/06/19 22:38 Dose: 100 mg Magnesium Hydroxide (Milk Of Magnesia) 30 ml PO .PRN X 1 PRN PRN Reason: Constipation Last Admin: 12/08/18 19:58 Dose: 30 ml Metoprolol Tartrate (Lopressor (Beta Danielle)) 50 mg PO BID [facility] Last Admin: 01/06/19 22:37 Dose: 50 mg Oxybutynin Chloride (Ditropan) 10 mg PO BID [facility] Last Admin: 01/06/19 22:38 Dose: 10 mg Polyethylene Glycol (Miralax) 17 gm PO DAILY [facility] Last Admin: 01/06/19 09:49 Dose: Not Given Potassium Chloride (K-Dur) 40 meq PO BIDCM [facility] Last Admin: 01/06/19 17:59 Dose: 40 meq Senna/Docusate Sodium (Senokot-S, Sena-Colace) 2 tablet PO BID [facility] Last Admin: 01/06/19 22:37 Dose: 2 tablet Trazodone HCl (Desyrel) 25 mg PO QHS [facility] Last Admin: 01/06/19 22:39 Dose: 25 mg Medical Necessity - Tobacco Use Smoking Status: Former smoker Assessment/Plan All Active Problems (Last Updated 04/29/18 @ 15:18 by Cee Mcnulty DO) Acute fall (Acute) Fracture of femur, distal, left, closed (Acute) Debility (Acute) Acute exacerbation of chronic obstructive pulmonary disease (COPD) (Resolved) Parainfluenza virus bronchopneumonia (Resolved) History of MRSA infection (Resolved) Non-healing wound of lower extremity (Acute) Allergic reaction due to correct medicinal substance properly administered (Resolved) Atrial fibrillation with RVR (Resolved) CAP (community acquired pneumonia) (Resolved) Cellulitis of lower leg (Resolved) Influenza B (Resolved) Laceration of head (Resolved) Metabolic alkalosis (Resolved) Pneumonia (Resolved) Syncope and collapse (Resolved) Patient is a 63-year-old lady who slipped on ice injuring her left knee imaging studies obtained on admission demonstrated Comminuted and dorsally angulated fracture of the distal femur, involving the total knee arthroplasty. Admitted to regular nursing floor with consultation placed to orthopedic surgery patient underwent surgical intervention on 12/04/2018 patient was transferred to the inpatient rehab unit once her medical condition stabilized. 1. Acute comminuted, displaced, closed fracture of the distal femoral diaphysis, proximal to the femoral prosthesis secondary to fall. Patient underwent Revision left total knee replacement entire femoral and tibial component on 12/04/[address] Jenkins transferred to the inpatient rehab unit once her medical condition stabilized. Patient progress is rather been slow. 2. Paroxysmal atrial fibrillation rate controlled on systemic anticoagulation with Eliquis resumed on 12/05/2017 3. Anemia secondary to acute blood loss anemia following surgery monitoring H&H and has not require blood transfusion 4. COPD without acute exacerbation did continue patient home regimen 5. Obstructive sleep apnea 6. Morbid obesity with BMI of 41.6 7. Hypertension-blood pressure controlled, home medications continued with dose adjustment as needed 8. Depression with anxiety 9. Chronic alcoholic cirrhosis stable 10. Mediastinal adenopathy ; Informed of results instructed to follow-up with Dr. Grimaldo her primary care physician for subsequent follow-up 11. DVT prophylaxis on Eliquis Code Visit Inpatient E&M: 70791 Subs Hosp L2
[2019-01-07] MEDS: Ascorbic Acid 500 MG Tablet 1500 MG PO (09:09)
[2019-01-07] MEDS: FLUoxetine 20 MG Capsule 40 MG PO (09:09)
[2019-01-07 09:10] VITALS: BP 114/70; PULSE 76
[2019-01-07] MEDS: dilTIAZem CD 240 MG Capsule PO (09:10)
[2019-01-07] MEDS: Furosemide 40 MG Tablet PO (09:10)
[2019-01-07] MEDS: Oxybutynin 5 MG Tablet 10 MG PO (09:10)
[2019-01-07] MEDS: APIXABAN 5 MG TABLET PO (09:10)
[2019-01-07] MEDS: Senna/Docusate Sodium 1 Tablet 2 TABLET PO (09:10)
[2019-01-07] MEDS: Metoprolol Tartrate 50 MG Tablet PO (09:10)
[2019-01-07] MEDS: Gabapentin 600 MG Tablet PO (09:10)
--- NOTE | 2019-01-07 09:48 | PCM.DC ---
- Discharge Diagnoses Current Active Problems: Current Active and Chronic Problems (Last Updated 04/29/18 @ 15:18 by Cee Mcnulty DO) Debility (Acute) You will use the following diet at home:: Regular Your food should be the consistency of: Regular Discharge Activity: May Not Drive Weight Bearing Status: Partial weight bearing Call your doctor if your incision/area has: Continuous Slow Oozing, Sudden Increased Bleeding, Increased Pain/ Swelling, Increased Redness, Foul Smelling Discharge, Swelling at the incision site Call your doctor if you observe: Fever of 101 or Higher, Coldness, Increased Pain, Numbness or Tingling, Change in Color, Inability to urinate, Inability to have a bowel movement, Using more than one pad per hour, Shortness of breath, Dizziness, Fainting spells, Swelling in the ankles, Chest pain, Prolonged hiccoughing, Increased palpitations (irregular heartbeat), Calf discomfort, Uncontrolled pain Cleanse incision/area with: - - per ortho recommendations Instructions: What Is Atrial Flutter/Atrial Fibrillation?, What Is Type 2 Diabetes?, Your High Blood Pressure Risk Factors, Diabetes and Kidney Disease, What is COPD?, Discharge Instructions: COPD, Discharge Instructions for Atrial Fibrillation, Discharge Instructions for High Blood Pressure (Hypertension), Deciding on Bariatric Surgery Allergies/Adverse Reactions: Allergies morphine Allergy (Verified 12/01/18 18:51) Itching nifedipine [From Procardia] Adverse Reaction (Verified 12/01/18 23:56) Causes elevated BP Medications to take at Discharge Furosemide 40 mg PO BID 02/05/16 fluoxetine 40 mg capsule 40 mg PO DAILY 12/29/17 apixaban 5 mg tablet 5 mg PO BID tab 07/21/18 Lamotrigine [Lamictal] 100 mg PO QHS 08/06/18 cholecalciferol (vitamin D3) 50,000 unit capsule 50,000 unit PO LUDWIG 30 Days #4 cap 09/07/18 gabapentin 600 mg tablet 600 mg PO BID 30 Days #30 tab 09/07/18 Ascorbic Acid [Vitamin C] 1,500 mg PO DAILY 10/27/18 Metoprolol Tartrate 75 mg PO BID 10/27/18 Oxybutynin Chloride 10 mg PO BID 10/27/18 Potassium Chloride [Klor-Con M20] 40 meq PO BID 10/27/18 Simvastatin 40 mg PO QHS 10/27/18 Diltiazem HCl [Diltiazem 24Hr ER] 240 mg PO DAILY 12/02/18 Baclofen [Lioresal] 5 mg PO TID tablet 01/03/19 Hydrocodone Bitart/Apap 5-325 [[place] 5/325] 1 tablet PO Q6H PRN PRN 10 Days #40 tablet 01/03/19 traZODone [Desyrel] 25 mg PO QHS tablet 01/03/19 The following prescriptions were given: Hydrocodone Bitart/Apap 5-325 [[place] 5/325] 1 tablet PO Q6H PRN PRN 10 Days #40 tablet PRN Reason: Severe Pain (-08/18) Primary Care Physician: Osiel Grimaldo Chi, MD [Primary Care Provider] - Please follow up with your Primary Care Physician in: Follow up with PCP in 1-2 weeks Test Results: Test results from this visit will be discussed in further detail at your follow-up appointment, if applicable. Please Follow Up With: Gregory When: Follow up with Orthopedic surgeon in 1-2 weeks When: Follow with Neurosurgery [facility] for brain aneurysm Please Follow Up With: Dayton Cohen MD When: Follow up with Cardiology
[2019-01-07 09:50] VITALS: BP 114/70; PULSE 76; RESP 18; TEMP 36.5; O2SAT 92
--- NOTE | 2019-01-07 09:52 | DCINST_ITS ---
- Discharge Diagnoses Current Active Problems: Current Active and Chronic Problems (Last Updated 04/29/18 @ 15:18 by Cee Mcnulty DO) Debility (Acute) You will use the following diet at home:: Regular Your food should be the consistency of: Regular Discharge Activity: May Not Drive Weight Bearing Status: Partial weight bearing Call your doctor if your incision/area has: Continuous Slow Oozing, Sudden Increased Bleeding, Increased Pain/ Swelling, Increased Redness, Foul Smelling Discharge, Swelling at the incision site Call your doctor if you observe: Fever of 101 or Higher, Coldness, Increased Pain, Numbness or Tingling, Change in Color, Inability to urinate, Inability to have a bowel movement, Using more than one pad per hour, Shortness of breath, Dizziness, Fainting spells, Swelling in the ankles, Chest pain, Prolonged hiccoughing, Increased palpitations (irregular heartbeat), Calf discomfort, Uncontrolled pain Cleanse incision/area with: - - per ortho recommendations Instructions: What Is Atrial Flutter/Atrial Fibrillation?, What Is Type 2 Diabetes?, Your High Blood Pressure Risk Factors, Diabetes and Kidney Disease, What is COPD?, Discharge Instructions: COPD, Discharge Instructions for Atrial Fibrillation, Discharge Instructions for High Blood Pressure (Hypertension), Deciding on Bariatric Surgery Allergies/Adverse Reactions: Allergies morphine Allergy (Verified 12/01/18 18:51) Itching nifedipine [From Procardia] Adverse Reaction (Verified 12/01/18 23:56) Causes elevated BP Medications to take at Discharge Furosemide 40 mg PO BID 02/05/16 fluoxetine 40 mg capsule 40 mg PO DAILY 12/29/17 apixaban 5 mg tablet 5 mg PO BID tab 07/21/18 Lamotrigine [Lamictal] 100 mg PO QHS 08/06/18 cholecalciferol (vitamin D3) 50,000 unit capsule 50,000 unit PO LUDWIG 30 Days #4 cap 09/07/18 gabapentin 600 mg tablet 600 mg PO BID 30 Days #30 tab 09/07/18 Ascorbic Acid [Vitamin C] 1,500 mg PO DAILY 10/27/18 Metoprolol Tartrate 75 mg PO BID 10/27/18 Oxybutynin Chloride 10 mg PO BID 10/27/18 Potassium Chloride [Klor-Con M20] 40 meq PO BID 10/27/18 Simvastatin 40 mg PO QHS 10/27/18 Diltiazem HCl [Diltiazem 24Hr ER] 240 mg PO DAILY 12/02/18 Baclofen [Lioresal] 5 mg PO TID tablet 01/03/19 Hydrocodone Bitart/Apap 5-325 [[place] 5/325] 1 tablet PO Q6H PRN PRN 10 Days #40 tablet 01/03/19 traZODone [Desyrel] 25 mg PO QHS tablet 01/03/19 The following prescriptions were given: Hydrocodone Bitart/Apap 5-325 [[place] 5/325] 1 tablet PO Q6H PRN PRN 10 Days #40 tablet PRN Reason: Severe Pain (-08/18) Primary Care Physician: Osiel Grimaldo Chi, MD [Primary Care Provider] - Please follow up with your Primary Care Physician in: Follow up with PCP in 1-2 weeks Test Results: Test results from this visit will be discussed in further detail at your follow- up appointment, if applicable. Please Follow Up With: Gregory When: Follow up with Orthopedic surgeon in 1-2 weeks When: Follow with Neurosurgery [facility] for brain aneurysm Please Follow Up With: Dayton Cohen MD When: Follow up with Cardiology
--- NOTE | 2019-01-07 14:33 | NURSING ---
Went over discharge instructions, medications and appts. with pt., pt verbalized understanding, pt had all personal belongings in hand at discharged to include medical records for neurosurgery appt. Pt in stable condition.
--- NOTE | 2019-01-07 16:34 | CASEMGMT ---
Insurance Insurance notified of d/c home on 01/07/19. Auth # [id number] TAVIA Ramirez
== END 2019-01-07 14:37 | disposition home or self-care (01) | DRG 862 ==
PROVIDERS: Hospitalist; Admitting Provider Psychiatry & Neurology Neurology; Family Provider Family Medicine Geriatric Medicine; PCP Family Medicine Geriatric Medicine; Visit Provider Internal Medicine
DX: S72.402D Unspecified fracture of lower end of left femur, subsequent encounter for closed fracture with routine healing (principal); Z96.652 Presence of left artificial knee joint; G47.33 Obstructive sleep apnea (adult) (pediatric); K21.9 Gastro-esophageal reflux disease without esophagitis; J44.9 Chronic obstructive pulmonary disease, unspecified; Z86.14 Personal history of Methicillin resistant Staphylococcus aureus infection; I48.0 Paroxysmal atrial fibrillation; M51.37 Other intervertebral disc degeneration, lumbosacral region; I10 Essential (primary) hypertension; E66.01 Morbid (severe) obesity due to excess calories; Z68.41 Body mass index [BMI] 40.0-44.9, adult; Z71.3 Dietary counseling and surveillance; G89.29 Other chronic pain; E11.9 Type 2 diabetes mellitus without complications; R25.1 Tremor, unspecified; Z87.891 Personal history of nicotine dependence; M47.27 Other spondylosis with radiculopathy, lumbosacral region; D62 Acute posthemorrhagic anemia; E78.5 Hyperlipidemia, unspecified; Z79.01 Long term (current) use of anticoagulants; F41.8 Other specified anxiety disorders; W00.0XXD Fall on same level due to ice and snow, subsequent encounter; R59.0 Localized enlarged lymph nodes; K74.69 Other cirrhosis of liver
CPT/HCPCS: 36415; 70450; 70496; 70498; 73552; 80048; 82962; 83735; 85027; 85048; 97110; 97116; 97162; 97166; 97530; 97535; 97542; 97802; Q9967; A4216

== ENCOUNTER → 2019-01-13 17:17 | Outpatient (CLI) | payer MEDICAID, SELFPAY ==
[2018-12-07 19:05] VITALS: BMI 41.3
--- NOTE | 2019-01-13 17:20 | CT_ITS ---
STUDY: CT BRAIN WITHOUT CONTRAST REASON FOR EXAM: Female, 63 years old. Closed head injury RADIATION DOSAGE (If Supplied By Facility): CTDIvol = ( 44.99 ) mGy, DLP = ( 796.11 ) mGycm TECHNIQUE: Transaxial CT imaging of the brain was performed without administration of intravenous contrast material. Individualized dose optimization techniques were used for this CT. COMPARISON: 12/13/2018 FINDINGS: Normal soft tissue structures. Normal calvarium. There is mild cerebral atrophy with widening of the extra-axial spaces and ventricular dilatation. There are areas of decreased attenuation within the white matter tracts of the supratentorial brain, consistent with microvascular disease changes. Normal basal ganglia and thalami. Normal brainstem. There is mild cerebellar atrophy. There is no intracranial hemorrhage. There are no findings of an acute ischemic infarction. Normal visualized paranasal sinuses. CT/Brain/Head without Contrast IMPRESSION: Chronic involutional changes of the brain. Electronically Signed: Chang Pierson DO at 18:21 EST Tel , Service support ,
== END ==
PROVIDERS: Family Provider Family Medicine Geriatric Medicine; PCP Family Medicine Geriatric Medicine; Referring Provider Family Medicine Geriatric Medicine; Visit Provider Family Medicine Geriatric Medicine
DX: S09.90XA Unspecified injury of head, initial encounter (principal)
CPT/HCPCS: 70450

== ENCOUNTER → 2019-02-01 08:21 | Outpatient (CLI) | payer MEDICAID, SELFPAY ==
[2018-12-07 19:05] VITALS: BMI 41.3
--- NOTE | 2019-02-01 08:29 | VDLE_ITS ---
Reason For Study: LEG PAIN AND SWELLING RIGHT LEFT CFV is compressible, spontaneous, phasic, GSV is normal. competent and demonstrates normal CFV is compressible, spontaneous, phasic, augmentation. competent, and demonstrates normal Procedure augmentation. Exam performed in department. FV is compressible, spontaneous, phasic, A preliminary report was called and/or faxed competent and demonstrates normal to Dr. Jenkins. augmentation. POP V is compressible, spontaneous, phasic, competent and demonstrates normal augmentation. T/P Trunk is compressible. PTV is compressible. LT PerV is compressible. Interpretation Summary Deep veins of the left lower extremity are patent and compressible segmentally. There is no evidence of left lower extremity deep vein thrombosis. Valvular competence appears intact within the proximal deep venous system on the left . The left greater saphenous vein appears patent and compressible segmentally. Ordering Physician: Antonio Jenkins Referring Physician: Antonio Jenkins Performed By: Leticia Han RVT
== END ==
PROVIDERS: Family Provider Family Medicine Geriatric Medicine; PCP Family Medicine Geriatric Medicine; Referring Provider Specialist; Visit Provider Specialist
DX: M79.662 Pain in left lower leg (principal)
CPT/HCPCS: 93971

== ENCOUNTER → 2019-02-10 10:56 | Outpatient (CLI) | payer MEDICAID, SELFPAY ==
[2018-12-07 19:05] VITALS: BMI 41.3
== END ==
PROVIDERS: Family Provider Family Medicine Geriatric Medicine; PCP Family Medicine Geriatric Medicine; Referring Provider Family Medicine Geriatric Medicine; Visit Provider Family Medicine Geriatric Medicine
DX: R68.83 Chills (without fever) (principal)
CPT/HCPCS: 87633

== ENCOUNTER 2019-05-03 12:30 | Outpatient (RCR) | payer MEDICAID, SELFPAY ==
[2018-12-07 19:05] VITALS: BMI 41.3
--- NOTE | 2019-02-04 15:59 | HP.PTEVAL_ITS ---
Patient's Visit Information RUDY MICHELE is a 63 year old F referred to Physical Therapy by PRISCILLA Griffin with a diagnosis of PERIPROSTHETIC FRACTURE AROUND INTERNAL PROSTHESIS LEFT ,LEFT TKR. Date of Evaluation: 02/04/19 Physical Therapist: Alok Irizarry PT, Cert MDT, OCS - Visit Plan Frequency: 2x /Week Duration: 6 Weeks Plan: INTERVENTIONS WITH ROM,STRENGTHENIN HIP/KNEE ,GAIT/BALANCE TRAINING,NUSTEP. CP - Subjective Findings: This 63 y/o female presents to physical therapy periproshetic fracture around internal prothesis , revision left TKR . Patient fell out truck Dec 01 2018 caused fracture TKR thus went to ER ,thus undwerent revison of left TKR on 12/04/[address] Jenkins at [facility]. Patient then went to Rehab 4th floor 1 week later. Patient recently had US to r/o DVT 02/02. Patient d/c to home 01/07/19.While in hospital found aneurysm in brain ,patient seen Neurosurgeon in [facility].Patient recently seen DR shreyas BEAN. Patient denies parathesia/tingling in knee. Patient d/c to home with fww. Patient lives in apartment with 2 steps to enter has shower chair. Patient has difficulty with ADL's and housework tasks. Patient surgery affects QOL and function . SOCAIL: . VOCATION: retired - Pain Left Knee Pain Intensity (Out of 10): 9 Pain Intensity Range: 10 - Objective POSTURE: mild knee valgus. NEURO: c/o parathesia/tingling. EDEMA: mid calf 49.5 cm,joint line 50.5 cm. PALAPTION: unremarkable calf tender. SKIN: inscion well approximate. GAIT: ambulates with fww decrease stance time swing phase during gait cycle mild foward posture decrease stance time. BALANCE: fair+ with fww. AROM: knee 0-110 degrees supine knee flexion. MMT: quads/hams 4-/5,hip fl exion 3+/5,abd 3/5,ankke 4/5. FLEXABLITY: hams min tight. - hommans. STAIRS: one step at time with rails - Goals Goal 1:: Independant with HEP Goal Time Frame: 4-6 Weeks Goal 2:: Patient to ambulate with least restrictive device community distance with improve gait. pattern Goal Time Frame: 4-6 Weeks Goal 3:: Improve balance to good - with least restrictive device Goal Time Frame: 4-6 Weeks Goal 4:: Patient increase strength hip/knee 4/5 to improve function with gait Goal Time Frame: 4-6 Weeks Goal 5:: Patient improve LFES score by 10-15 points to improve QOL Goal Time Frame: 4-6 Weeks Goal 6:: Patient improve ROM knee for stairs. Goal Time Frame: 4-6 Weeks - Rehabilitation Potential Physical Therapy Diagnosis: Patient had revision of left TKR due to falling causing a fracture with current impairments with pain ,ROM ,decrease strength impairs gait ,balance stairs thus benifit from skilled PT Rehabilitation Potential: Good - Anticipated Interventions Patient/Client Instruction: Educate patient on: Condition, Plan of Care For the Purpose of:: To decrease pain, To increase ROM, To improve muscle performance and motor function, To improve ability to perform ADL's, To increase tolerance to activity/condition/position, To improve ability of physical actions for home/community/work/leisure, To improve gait and locomotor functions, To increase flexibility/ROM, To improve endurance, To improve balance, To improve safety with gait, To assume or resume ADL's, To improve ability to perform tasks related to life management Therapeutic Exercise to Include: Strength training, Endurance training, Balance training, Flexibilty training, Gait and locomotor training, Passive ROM, Active ROM Comment: KNEE /HIP For the Purpose of:: To decrease pain, To increase ROM, To improve muscle performance and motor function, To increase tolerance to activity/condition/position, To improve performance and independence with ADL's, To improve ability of physical actions for home/community/work/leisure, To improve gait and locomotor functions, To increase flexibility/ROM, To improve endurance, To improve balance, To improve safety with gait, To improve tolerance to ADL's Functional Training to Include: Gait training For the Purpose of:: To improve ability of physical actions for home/community/work/leisure, To improve gait and locomotor functions Cryotherapy (ice pack, ice massage): Yes For the Purpose of:: To decrease pain, To decrease swelling/inflammation Thank you for the opportunity to evaluate your patient. For Medicare and Medicare HMO plans, please review the plan of care and approve it. It will need to be FAXED BACK to us at [phone] for Medicare purposes. For Medicare only, by signing this I certify the plan of care. Please let me know if there are questions or concerns regarding this plan of care. Physician Signature: Date:
--- NOTE | 2019-05-03 13:02 | HP.PTDCSUM ---
HP - PT D/C Summary It has been my pleasure to treat RUDY MICHELE under orders from PRISCILLA Griffin, for the diagnosis of PERIPROSTHETIC FRACTURE AROUND INTERNAL PROSTHESIS LEFT ,LEFT TKR for a total of 11 visit(s). Discharge Date: 05/03/19 Please see the following information for a summary of their discharge status. - Subjective Subjective: Doing well..walking around no device in home without device. Doing ADL's at home - Pain Left Knee Pain Intensity (Out of 10): 0 - Overall Improvement % Improvement: 85 - Objective Objective/Function: AROM: 0-130 SUPINE KNEE FLEXION. MMT: quads/hams 4/5,hip flexion 4/5. GAIT: ambulates no device in home less than 50 '. community distance no device. BALANCE: FAIR+. EDEMA: ABSENT - Goals Goal 1:: Independant with HEP Goal Progress: Goal Met Goal 2:: Patient to ambulate with least restrictive device community distance with improve gait. pattern Goal Progress: Goal Met Goal 3:: Improve balance to good - with least restrictive device Goal Progress: Goal Met Goal 4:: Patient increase strength hip/knee 4/5 to improve function with gait Goal Progress: Goal Met Goal 5:: Patient improve LFES score by 10-15 points to improve QOL Goal Progress: Goal Met Goal 6:: Patient improve ROM knee for stairs. - Plan Plan: D/C TO HEP - D/C Information Discharge Comments: HEP If there are questions or concerns regarding this patient's physical therapy, please feel free to call me at [phone]. Thank you for the referral of this patient. Sincerely, Alok Irizarry, PT, Cert MDT, OCS
== END 2019-05-03 19:00 | disposition home or self-care (01) ==
LOC: PT 12:30
PROVIDERS: Family Provider Family Medicine Geriatric Medicine; PCP Family Medicine Geriatric Medicine; Referring Provider Physician Assistant Surgical; Visit Provider Physician Assistant Surgical
DX: M97.12XD Periprosthetic fracture around internal prosthetic left knee joint, subsequent encounter (principal); Z96.652 Presence of left artificial knee joint
CPT/HCPCS: 97110; 97162; 97530

== ENCOUNTER 2019-05-21 20:40 | Emergency (ER) | payer MEDICAID, SELFPAY ==
[2019-04-07 14:39] VITALS: BMI 41.7
[2019-05-21 20:40] VITALS: BP 110/63; PULSE 80; RESP 16; TEMP 36.3; O2SAT 96; BMI 41.0
--- NOTE | 2019-05-21 21:58 | RAD_ITS ---
STUDY: X-RAY CHEST REASON FOR EXAM: Female, 63 years old. Headache for 2 weeks. Patient has had chest pain for 3 days. TECHNIQUE: Single AP portable view of the chest. COMPARISON: December 01, 2018. FINDINGS: Cardiac monitoring leads are present. The lungs are clear and expanded. There is no demonstrated pleural abnormality. There is mild cardiac enlargement. Normal mediastinum and guillaume. Normal visualized pulmonary arteries. There is atherosclerotic calcification of the aortic arch with tortuosity. There is demineralization of the osseous structures. Normal visualized ribs, clavicles, and shoulders. There is no demonstrated abnormality of the visualized soft tissue structures of the upper abdomen. RAD/Chest 1 View (Portable) IMPRESSION: Mild cardiomegaly without evidence of acute cardiopulmonary disease. Electronically Signed: Leonarda Felix MD at 22:20 EDT , Service support ,
--- NOTE | 2019-05-21 21:58 | EKG12_ITS ---
Test Reason : CP Blood Pressure : / mmHG Vent. Rate : 081 BPM Atrial Rate : 097 BPM P-R Int : 000 ms QRS Dur : 088 ms QT Int : 442 ms P-R-T Axes : 000 -08 016 degrees QTc Int : 513 ms Atrial fibrillation Increased R/S ratio in V1, consider early transition or posterior infarct Prolonged QT Abnormal ECG Confirmed by ESTRELLITA FERNANDEZ, SATURNINO ([id number]), food editor RICHARD ALMEIDA ([id number]) on 05/24/2019 2:02:58 PM Referred By: BROCK Confirmed By:SATURNINO HARO MD
--- NOTE | 2019-05-21 22:00 | CT_ITS ---
STUDY: CT BRAIN WITHOUT CONTRAST REASON FOR EXAM: Female, 63 years old. Headache for 2 weeks with shaking. RADIATION DOSAGE (If Supplied By Facility): CTDIvol = ( 44.99 ) mGy, DLP = ( 812.98 ) mGycm TECHNIQUE: Transaxial CT imaging of the brain was performed without administration of intravenous contrast material. Multiplanar reformations are submitted for interpretation. Individualized dose optimization techniques were used for this CT. COMPARISON: CT of the head dated January 13, 2019. FINDINGS: Normal soft tissue structures. Normal calvarium. There is a endovascular coil bundle within the posterior fossa probably for treatment of an aneurysm. Normal size ventricles and extra-axial spaces for the patient's age. There are areas of decreased attenuation within the white matter tracts of the supratentorial brain, consistent with microvascular disease changes. Normal basal ganglia and thalami. Normal brainstem. Normal cerebellum. There is no intracranial hemorrhage. There is mild atherosclerotic calcification of the intracranial arteries. Normal visualized paranasal sinuses. CT/Brain/Head without Contrast IMPRESSION: No CT evidence of acute intracranial hemorrhage. Electronically Signed: Leonarda Felix MD at 23:32 EDT , Service support ,
[2019-05-21] MEDS: Nalbuphine 10 MG/ML Ampul IV (22:16)
[2019-05-21 22:18] LABS: Absolute Lymphocyte Count 2.68 X10^3/ul (0.83-4.51); Absolute Neutrophil Count 8.3 X10^3/uL (2.0-7.7); Basophil# 0.06 X10^3/uL; Basophil% 0.5 % (0-1); Eosinophil# 0.37 X10^3/uL; Eosinophils% 2.9 % (0-5); Hematocrit 38.8 % (37-47); Lymphocyte # 2.68 X10^3/ul (4.0); Lymphocyte % 21.3 % (19-41); Mean Corp Hgb Conc 30.9 g/gl (32-36); Mean Corpuscular Hgb 26.7 pg (27.0-32.0); Mean Corpuscular Volume 86.2 fL (81-99); Mean Platelet Vol. 10.4 fl (6.2-12.0); Monocyte# 1.12 X10^3/uL; Monocyte% 8.9 % (0-10); Neutrophil # 8.28 X10^3/uL (2.7-7.7); Neutrophil % 65.8 % (47-70); Platelet Count 314 K/mm3 (150-450); RBC Distribution Width CV 16.6 % (11.6-14.6); RBC Distribution Width SD 51.7 fl (35.1-43.9); White Blood Count 12.6 K/mm3 (4.4-11.0)
[2019-05-21 22:19] LABS: POSITIVE COUNT NO; POSITIVE DIFFERENTIAL NO; POSITIVE MORPHOLOGY NO
[2019-05-21 22:46] LABS: Anion Gap 5 (5-15); BUN 30 mg/dL (7-18); BUN/Creat Ratio 20.3 RATIO (10-20); Calcium,Total 8.4 mg/dL (8.5-10.1); Chloride 103 mmol/L (98-107); Creatinine, Serum 1.48 mg/dL (0.55-1.02); EST Glomerular Filtration Rate 38 mL/min (>60); Est Glom Filt Rate - Afr Amer 46 mL/min (>60); Estimated Creatinine Clearance 38.74 ml/min; Glucose 117 mg/dL (74-106); Potassium 4.3 mmol/L (3.5-5.1); Sodium Level 138 mmol/L (136-145)
[2019-05-21 23:20] VITALS: BP 97/79; PULSE 72; RESP 18; O2SAT 92
--- NOTE | 2019-05-22 00:28 | ED.DCSUM_ITS ---
- ER Visit Summary Date of Service: 05/22/19 Chief Complaint: Headache and chest pain History of Present Illness: The patient is a 63 F known history of a brain aneurysm has been coiled. History of anemia and A. fib on Eliquis. States she has had a constant headache for 1 week on the top part of her scalp and forehead. She denies any trauma. She denies any nausea or vomiting. She denies any fever or neck pain. She also states that she has had sharp chest pain for at least 3 days. Not associated with exertion. No shortness of breath. Is not pleuritic. No hemoptysis. No fever cough. Physical Examination: Alert female no acute distress vital signs are stable afebrile. Pulse ox 96% room air no hypoxia. HEENT exam unremarkable. Pupils round reactive light. No facial droop. Neck nontender no meningismus. No lymphadenopathy. Lungs clear to auscultation bilaterally. Heart irregularly irregular consistent with A. fib rate about 80. No murmur appreciated.. Abdomen is soft and nontender normal bowel sounds no peritoneal signs. Patient moving all 4 extremities. Neurovascularly intact. Neurologically she is awake and alert with no focal motor deficits. Test Results: CBC unremarkable white count 12. Hemoglobin 12. Electrolytes unremarkable BUN is 30 creatinine 1.48. Gap of 5. Troponin normal. Chest x- ray portable one view showed borderline cardiomegaly otherwise no acute process read by myself the radiologist. CT of the brain showed no acute abnormality as read by the radiologist. It was a noncontrast study. There was a coil present from the prior aneurysmal repair. Emergency Department Course and Treatment: Patient with atypical noncardiac sounding chest pain. Her headache is improved with the IV Nubain. Her neurologic exam remains normal repeat exam at 00 20 5 AM. She will be discharged home with outpatient follow-up. Continue her current medications. Treatment Plan: Follow-up with her primary care physician. Disposition: Discharge Impression: Acute cephalgia of uncertain etiology. History of prior brain aneurysm coiled. Anticoagulated on Eliquis Chronic A. fib Atypical chest pain uncertain etiology This note was generated with [employer] dictation software. It may contain incorrect words, spelling, and punctuation that were not noted in review of the chart prior to signing ED Disposition - Plan for ED Patient: Referrals: Osiel Grimaldo Chi, MD [Primary Care Provider] -
--- NOTE | 2019-05-22 00:32 | ED.DEP ---
ED Disposition - Plan for ED Patient: Disposition: Home or Assisted Living Instructions: HEADACHE, Unspecified, CHEST PAIN, Uncertain Cause Referrals: Osiel Grimaldo Chi, MD [Primary Care Provider] - 3-5 Days Additional Instructions: Tests are unremarkable. The CAT scan of your brain was normal. Tylenol for pain. Follow-up with your primary care physician in the next several days. Return if worse.
[2019-05-22 00:52] VITALS: BP 104/66; PULSE 76; RESP 16; O2SAT 94
== END 2019-05-22 01:04 | disposition home or self-care (01) ==
PROVIDERS: Emergency Provider Emergency Medicine; Family Provider Family Medicine Geriatric Medicine; PCP Family Medicine Geriatric Medicine
DX: R51 Headache (principal); I67.1 Cerebral aneurysm, nonruptured; Z79.01 Long term (current) use of anticoagulants; I48.2 Chronic atrial fibrillation; R07.89 Other chest pain; D64.9 Anemia, unspecified; Z79.899 Other long term (current) drug therapy
CPT/HCPCS: 70450; 71045; 80048; 84484; 85025; 93005; 96374; 99284; A4216

== ENCOUNTER → 2019-05-26 | Outpatient (CLI) | payer MEDICAID, SELFPAY ==
[2019-04-07 14:39] VITALS: BMI 41.7
[2019-05-21 20:40] VITALS: BMI 41.0
[2019-05-26 17:27] LABS: Anion Gap 3 (5-15); BUN 27 mg/dL (7-18); BUN/Creat Ratio 27.6 RATIO (10-20); Calcium,Total 8.6 mg/dL (8.5-10.1); Chloride 106 mmol/L (98-107); Creatinine, Serum 0.98 mg/dL (0.55-1.02); EST Glomerular Filtration Rate 61 mL/min (>60); Est Glom Filt Rate - Afr Amer 74 mL/min (>60); Glucose 100 mg/dL (74-106); Potassium 4.4 mmol/L (3.5-5.1); Sodium Level 141 mmol/L (136-145)
== END | disposition home or self-care (01) ==
PROVIDERS: Family Provider Family Medicine Geriatric Medicine; PCP Family Medicine Geriatric Medicine; Visit Provider Family Medicine Geriatric Medicine
DX: N18.3 Chronic kidney disease, stage 3 (moderate) (principal)
CPT/HCPCS: 36415; 80048

== ENCOUNTER → 2019-06-15 | Outpatient (CLI) | payer MEDICAID, SELFPAY ==
[2019-04-07 14:39] VITALS: BMI 41.7
[2019-05-31 09:11] VITALS: BMI 41.0
--- NOTE | 2019-06-15 10:50 | US_ITS ---
STUDY: RENAL ULTRASOUND - COMPLETE REASON FOR EXAM: Female, 63 years old. Recurrent UTI TECHNIQUE: Ultrasound evaluation of the kidneys was performed with real-time and static randhawa-scale imaging. COMPARISON: CT dated December 01, 2018 FINDINGS: RIGHT KIDNEY: Normal location of the right kidney, which is normal in size. The right kidney measures 13.6 cm in length. There is diffuse thinning of the renal cortex. There is a 3.0 x 2.7 x 2.3 cm right renal cyst. There are no right renal calculi. There is no right hydronephrosis. DISTAL RIGHT URETER: There is a visualized right ureteral jet. LEFT KIDNEY: Normal location of the left kidney, which is normal in size. The left kidney measures 12.0 cm in length. There is diffuse thinning of the renal cortex. There is no left renal mass or cyst. There are no left renal calculi. There is no left hydronephrosis. DISTAL LEFT URETER: There is a visualized left ureteral jet. BLADDER: The urinary bladder is incompletely distended and has a volume of 38.2 ml. There is a normal wall thickness of the urinary bladder. There is no demonstrated mass within the urinary bladder. There are no demonstrated bladder calculi. US/Kidney and Bladder IMPRESSION: No hydronephrosis. Bilateral cortical thinning. 3.0 x 2.7 x 2.3 cm right renal cyst. Electronically Signed: Christy Pinto MD at 16:51 EDT Tel , Service support ,
== END | disposition home or self-care (01) ==
LOC: US 10:48
PROVIDERS: Family Provider Family Medicine Geriatric Medicine; PCP Family Medicine Geriatric Medicine; Referring Provider Urology; Visit Provider Urology
DX: N39.0 Urinary tract infection, site not specified (principal)
CPT/HCPCS: 76770

== ENCOUNTER → 2019-06-27 | Outpatient (CLI) | payer MEDICAID, SELFPAY ==
[2019-05-31 09:11] VITALS: BMI 41.0
--- NOTE | 2019-06-27 12:57 | ECHOCS_ITS ---
Reason For Study: Afib/Flutter Procedure This was a 2D Doppler, Color Flow transthoracic echocardiogram. The study was technically difficult. Contrast injection was performed. Exam performed in department. Left Ventricle Normal LV size. Mild concentric left ventricular hypertrophy. Left ventricular systolic function is normal. The estimated ejection fraction is 55 %. No regional wall motion abnormalities noted. Right Ventricle Normal RV size. Normal systolic function. Atria The left atrium is moderately enlarged. Normal right atrium. Mitral Valve Normal mitral valve. Tricuspid Valve Normal tricuspid valve. Aortic Valve The aortic valve is not well visualized. Pulmonic Valve Normal pulmonic valve. Great Vessels Normal aortic root. The pulmonary artery is normal size. Pericardium/Pleural No pericardial effusion. Medication 22 gauge I.V. with prn adaptor inserted into right arm. Diluted definity 2ml given slow IV push to enhance endocardial definition. MMode/2D Measurements & Calculations LVIDd: 4.6 cm IVSd: 1.5 cm LAV(MOD-bp): 100.3 ml LVIDs: 3.0 cm LVPWd: 1.2 cm FS: 34.2 % LAV(MOD-bp) Indexed: 43.2 ml/m2 LAV(MOD-sp2): 82.1 ml LAV(MOD-sp4): 118.4 ml LA A4 area: 32.4 cm2 RA A4 area: 22.0 cm2 Doppler Measurements & Calculations MV E max lennie: 118.9 cm/sec Ao V2 max: 109.1 cm/sec LV V1 max: 81.2 cm/sec Ao max P.8 mmHg LV V1 max P.7 mmHg PA V2 max: 98.2 cm/sec Interpretation Summary Normal LV size. Left ventricular systolic function is normal. The estimated ejection fraction is 55 %. Mild concentric left ventricular hypertrophy. Contrast injection was performed. Compared to previous study, the left ventricular systolic function has improved.. Ordering Physician: Dayton Cohen Referring Physician: Osiel Grimaldo Chi Performed By: Cruzito Temple RCS
== END | disposition home or self-care (01) ==
PROVIDERS: Family Provider Family Medicine Geriatric Medicine; PCP Family Medicine Geriatric Medicine; Referring Provider Internal Medicine Cardiovascular Disease; Visit Provider Internal Medicine Cardiovascular Disease
DX: I42.8 Other cardiomyopathies (principal); I48.1 Persistent atrial fibrillation
CPT/HCPCS: 93306; Q9957; A4216; C8929

== ENCOUNTER → 2019-06-30 | Outpatient (CLI) | payer MEDICAID, SELFPAY ==
[2019-05-31 09:11] VITALS: BMI 41.0
[2019-06-30 12:27] LABS: Absolute Lymphocyte Count 1.37 X10^3/uL (0.83-4.51); Absolute Neutrophil Count 5.2 X10^3/uL (2.0-7.7); Basophil# 0.06 X10^3/uL; Basophil% 0.8 % (0-1); Hematocrit 39.2 % (37-47); Hemoglobin 11.7 g/dL (12.0-15.0); Lymphocyte # 1.37 X10^3/ul (4.0); Lymphocyte % 18.1 % (19-41); Mean Corp Hgb Conc 29.8 g/dL (32-36); Mean Corpuscular Hgb 27.3 pg (27.0-32.0); Mean Corpuscular Volume 91.4 fL (81-99); Mean Platelet Vol. 10.6 fl (6.2-12.0); Monocyte# 0.54 X10^3/uL; Monocyte% 7.2 % (0-10); NRBC Flagged by Analyzer 0 % (0-5); Neutrophil # 5.24 X10^3/uL (2.7-7.7); Neutrophil % 69.4 % (47-70); Platelet Count 282 K/mm3 (150-450); RBC Distribution Width CV 16.4 % (11.6-14.6); RBC Distribution Width SD 55.6 fl (35.1-43.9); Red Blood Count 4.29 M/mm3 (4.2-5.4); White Blood Count 7.6 K/mm3 (4.4-11.0)
[2019-06-30 12:57] LABS: ALB/GLOB Ratio 0.9 RATIO (0.9-2.4); AST(SGOT) 13 U/L (15-37); Alanine Aminotransfer ALT/SGPT 21 U/L (13-56); Albumin, Serum 3.4 g/dL (3.2-5.0); Alkaline Phosphatase 114 U/L (45-117); Anion Gap 4 (5-15); BUN 16 mg/dL (7-18); BUN/Creat Ratio 17.9 RATIO (10-20); Calcium,Total 8.6 mg/dL (8.5-10.1); Chloride 110 mmol/L (98-107); Creatinine, Serum 0.89 mg/dL (0.55-1.02); EST Glomerular Filtration Rate 67 mL/min (>60); Est Glom Filt Rate - Afr Amer 82 mL/min (>60); Globulin 3.6 g/dL (2.2-4.2); Glucose 120 mg/dL (74-106); Potassium 3.9 mmol/L (3.5-5.1); Sodium Level 144 mmol/L (136-145); Thyroid Stim Hormone (TSH) 1.53 uIU/mL (0.358-3.74)
== END | disposition home or self-care (01) ==
LOC: POLAB3 09:13
PROVIDERS: Family Provider Family Medicine Geriatric Medicine; PCP Family Medicine Geriatric Medicine; Visit Provider Family Medicine Geriatric Medicine
DX: E11.9 Type 2 diabetes mellitus without complications (principal); E55.9 Vitamin D deficiency, unspecified; I10 Essential (primary) hypertension
CPT/HCPCS: 36415; 80053; 82306; 84443; 85025

== ENCOUNTER → 2019-07-25 12:21 | Outpatient (CLI) | payer MEDICAID, SELFPAY ==
[2019-05-31 09:11] VITALS: BMI 41.0
[2019-07-25 13:07] LABS: Erythrocyte Sedimentation Rate 11 mm/hr (0-30)
[2019-07-25 13:09] LABS: Absolute Lymphocyte Count 1.57 X10^3/uL (0.83-4.51); Absolute Neutrophil Count 6.8 X10^3/uL (2.0-7.7); Basophil# 0.07 X10^3/uL; Basophil% 0.7 % (0-1); Eosinophil# 0.45 X10^3/uL; Eosinophils% 4.7 % (0-5); Hemoglobin 12.3 g/dL (12.0-15.0); Lymphocyte # 1.57 X10^3/ul (4.0); Lymphocyte % 16.4 % (19-41); Mean Corpuscular Volume 90.1 fL (81-99); Mean Platelet Vol. 10.3 fl (6.2-12.0); Monocyte# 0.63 X10^3/uL; Monocyte% 6.6 % (0-10); NRBC Flagged by Analyzer 0 % (0-5); Neutrophil # 6.76 X10^3/uL (2.7-7.7); Neutrophil % 70.9 % (47-70); Platelet Count 352 K/mm3 (150-450); RBC Distribution Width CV 15.5 % (11.6-14.6); RBC Distribution Width SD 51.6 fl (35.1-43.9); Red Blood Count 4.55 M/mm3 (4.2-5.4); White Blood Count 9.6 K/mm3 (4.4-11.0)
[2019-07-25 13:27] LABS: CRP < 2.90 mg/L (0.0-3.0)
== END ==
PROVIDERS: Family Provider Family Medicine Geriatric Medicine; PCP Family Medicine Geriatric Medicine; Referring Provider Physician Assistant Surgical; Visit Provider Physician Assistant Surgical
DX: Z96.652 Presence of left artificial knee joint (principal)
CPT/HCPCS: 36415; 85025; 85652; 86140

== ENCOUNTER 2019-08-08 13:43 | Inpatient (IN) | payer MEDICAID, SELFPAY ==
[2019-05-31 09:11] VITALS: BMI 41.0
[2019-08-08] VITALS (11 sets, daily range): BP systolic 105–136; BP diastolic 54–84; PULSE 82–122; RESP 16–29; TEMP 36.6–39.3; O2SAT 92–99; BMI 43.5; BMI 43.6; BMI 42.3
--- NOTE | 2019-08-08 13:58 | RAD_ITS ---
STUDY: X-RAY CHEST REASON FOR EXAM: Female, 63 years old. Cough. Nausea and vomiting. TECHNIQUE: Single AP portable view of the chest. COMPARISON: Comparison is made with prior study dated May 21, 2019. FINDINGS: EKG electrodes are seen. Mild increased linear markings at the left lung base suggestive of left basilar atelectasis. There is no demonstrated pleural abnormality. Normal size heart. Normal mediastinum and guillaume. Normal visualized pulmonary arteries. There is atherosclerotic tortuosity of the aortic arch and descending thoracic aorta. There are degenerative changes of the visualized thoracic spine. Mild dextroscoliosis. Normal visualized ribs, clavicles, and shoulders. There is no demonstrated abnormality of the visualized soft tissue structures of the upper abdomen. RAD/Chest 1 View (Portable) IMPRESSION: Mild increased markings at the left lung base suggestive of developing atelectasis. Electronically Signed: Dwight Ledbetter, at 15:27 EDT , Service support ,
--- NOTE | 2019-08-08 13:58 | EKG12_ITS ---
Test Reason : Blood Pressure : / mmHG Vent. Rate : 118 BPM Atrial Rate : 117 BPM P-R Int : 000 ms QRS Dur : 078 ms QT Int : 324 ms P-R-T Axes : 000 -10 203 degrees QTc Int : 454 ms Atrial fibrillation with rapid ventricular response Minimal voltage criteria for LVH, may be normal variant ST & T wave abnormality, consider inferior ischemia ST & T wave abnormality, consider anterolateral ischemia Abnormal ECG Confirmed by LUCILA FERNANDEZ, NITESH ([id number]), film and video editor RICHARD ALMEIDA ([id number]) on 08/10/2019 12:25:02 PM Referred By: Theresa Llanos Confirmed By:NITESH GAYTAN MD
--- NOTE | 2019-08-08 14:03 | ED.VIS.GEN ---
History of Present Illness Narrative: 63-year-old female with a past medical history of A. fib, hypertension, hyperlipidemia, morbid obesity presents with concern for nausea and vomiting. States it began 2 days ago. Admits to a cough which is been productive of clear sputum. Denies any abdominal pain. Patient states that she also has had an intermittent headache. States it is been relieved with Motrin. Denies any neck stiffness, vision change, numbness or tingling. Denies any urinary symptoms. Patient is a former smoker. <Ezio Luis - Last Filed: 08/08/19 17:39> <Quique Ruggiero - Last Filed: 08/10/19 00:09> Chief Complaint: Nausea/Vomiting Past Medical History Prior records reviewed: Yes Past Medical History: - - Degenerative disc disease, paroxysmal A. fib, hyperlipidemia, CAD Surgical History: - - T+A, Cholecystectomy, Hysterectomy, Vaginal fistula repairs, L TKR, Bunion/hammertoe RLE, Carpal tunnel BL. Smoking Status: Former smoker - Family History Maternal Family History: Family History (Last Reviewed 05/31/19 @ 10:11 by Dayton Cohen MD) Mother Breast cancer Diabetes Brother Cancer Family History: Reports: Diabetes Paternal Family History: Family History (Last Reviewed 05/31/19 @ 10:11 by Dayton Cohen MD) Mother Breast cancer Diabetes Brother Cancer Family History: Reports: Cancer <Ezio Luis - Last Filed: 08/08/19 17:39> - Family History Maternal Family History: Family History (Last Reviewed 05/31/19 @ 10:11 by Dayton Cohen MD) Mother Breast cancer Diabetes Brother Cancer Paternal Family History: Family History (Last Reviewed 05/31/19 @ 10:11 by Dayton Cohen MD) Mother Breast cancer Diabetes Brother Cancer <Quique Ruggiero - Last Filed: 08/10/19 00:09> - Allergies and Home Meds Allergies/Adverse Reactions: Allergies morphine Allergy (Verified 08/08/19 13:44) Itching nifedipine [From Procardia] Adverse Reaction (Verified 08/08/19 13:44) Causes elevated BP Review of Systems General: Reports: Malaise. Denies: Chills, Fever, Sweats Eyes: Denies: Visual changes - bilaterally, Diplopia ENT: Denies: Rhinorrhea, Sore throat Cardiovascular: Denies: Chest pain, Palpitations Respiratory: Denies: Dyspnea, Cough, Dyspnea on exertion Gastrointestinal: Reports: Nausea, Vomiting. Denies: Abdominal pain, Diarrhea, Melena, Hematochezia Genitourinary: Denies: Dysuria, Hematuria, Frequency Musculoskeletal: Denies: Neck pain, Back pain, Extremity Pain Skin: Denies: Rash, Wounds Neurological: Denies: Headache, Weakness, Numbness Endocrine: Denies: Polyuria, Polydipsia <Ezio Luis - Last Filed: 08/08/19 17:39> Physical Exam Vital Signs/Narrative: Vital Signs Temp Pulse Resp BP Pulse Ox 08/08/19 13:44 102.7 F H 122 H 29 H 136/78 H 95 Inital Vital Signs reviewed: Yes General: Well nourished, Well developed, No Acute Distress, - - Morbidly obese Head: Normocephalic, Atraumatic Eyes: Perrl, EOMI ENT: Moist mucous membranes, No rhinorrhea Neck: Supple, Nontender Cardiovascular: Regular rate, Regular rhythm, No murmurs Respiratory: No distress, Chest nontender, - - Left-sided wheezing. Abdomen: Soft, Nontender, Nondistended, Normal bowel sounds Back: Nontender, Normal Inspection Extremities: Nontender, No edema Skin: Normal color, No rash Neurological: Alert, Oriented x3, Cranial nerves II-XII grossly intact, Normal Strength, Normal Sensation Psychological: Normal affect, Normal Mood <Ezio Luis - Last Filed: 08/08/19 17:39> Diagnostic/Tx/Re-eval Chest X-Ray - ED: 1 View, No Acute Disease - Rhythm Strip Rhythm Strip: A-fib Rate: 118 - EKG Initial EKG Interpretation: Atrial Fibrillation, - - Atrial fibrillation with RVR at 118 bpm. No evidence of ST elevation or depression. - Medical Decision Making Patient appears ill but nontoxic. Evidence of tachycardia, fever, tachypnea on arrival. Normotensive however. Abdomen benign. Wheezing bilaterally. Chest x-ray shows no acute infiltrate. Urine positive for UTI. Patient given 1500 mL's of normal saline. Lactate of 0.9. No further fluid resuscitation necessary. Patient also given Tylenol. Slight hypokalemia which was replaced p.o. Prophylactically covered with Zosyn. Blood cultures and urine culture pending. CT without contrast was done which shows concern for possible pyelonephritis. Following fluid resuscitation, antibiotics, Tylenol patient's heart rate is approximately 100. Spoke with hospitalist who is agreeable with admission. Patient also agreeable and admitted in stable condition. <Ezio Luis - Last Filed: 08/08/19 17:39> - Medical Decision Making I performed a history and physical examination of the patient and discussed management plan with the resident physician. I reviewed the resident physician's note and agree with the documented findings and plan of care. She presents with fever. She is evidence of UTI. Normal lactic acid. She was started on antibiotics. Plan is admission to the hospital Quique Ruggiero DO, MS, FACEP <Quique Ruggiero - Last Filed: 08/10/19 00:09> ED Disposition <Ezio Luis - Last Filed: 08/08/19 17:39> <Quique Ruggiero - Last Filed: 08/10/19 00:09> - Plan for ED Patient: Disposition: Acute [facility] Diagnosis: Sepsis, UTI (urinary tract infection)
[2019-08-08] MEDS: 0.9% Normal Saline 1,000 ML 999 ML IV ×2 (14:05→15:10)
[2019-08-08] MEDS: Ondansetron 4 MG/2 ML Vial IM (14:12)
[2019-08-08] MEDS: Acetaminophen 500 MG Tablet 1000 MG PO (14:13)
[2019-08-08 14:14] LABS: Absolute Lymphocyte Count 0.83 X10^3/uL (0.83-4.51); Absolute Neutrophil Count 12.2 X10^3/uL (2.0-7.7); Basophil# 0.05 X10^3/uL; Basophil% 0.4 % (0-1); Eosinophil# 0.05 X10^3/uL; Eosinophils% 0.4 % (0-5); Hematocrit 38.2 % (37-47); Hemoglobin 12.4 g/dL (12.0-15.0); Lymphocyte # 0.83 X10^3/ul (4.0); Lymphocyte % 5.9 % (19-41); Mean Corp Hgb Conc 32.5 g/dL (32-36); Mean Corpuscular Hgb 28.6 pg (27.0-32.0); Mean Platelet Vol. 10.3 fl (6.2-12.0); Monocyte# 0.93 X10^3/uL; Monocyte% 6.6 % (0-10); NRBC Flagged by Analyzer 0 % (0-5); Neutrophil # 12.22 X10^3/uL (2.7-7.7); Neutrophil % 86.1 % (47-70); Platelet Count 238 K/mm3 (150-450); RBC Distribution Width CV 14.8 % (11.6-14.6); RBC Distribution Width SD 48.2 fl (35.1-43.9); Red Blood Count 4.34 M/mm3 (4.2-5.4); White Blood Count 14.2 K/mm3 (4.4-11.0)
[2019-08-08 14:22] LABS: International Normalized Ratio 1.4; Prothrombin Time (Protime)PT. 17.3 SECONDS (11.7-14.9)
[2019-08-08 14:23] LABS: Partial Thromboplast Time 30.7 Seconds (24.1-36.2)
[2019-08-08 14:32] LABS: ALB/GLOB Ratio 0.8 RATIO (0.9-2.4); AST(SGOT) 12 U/L (15-37); Alanine Aminotransfer ALT/SGPT 16 U/L (13-56); Alkaline Phosphatase 100 U/L (45-117); Anion Gap 8 (5-15); BUN 20 mg/dL (7-18); BUN/Creat Ratio 23.9 RATIO (10-20); Calcium,Total 8.4 mg/dL (8.5-10.1); Chloride 102 mmol/L (98-107); Creatinine, Serum 0.84 mg/dL (0.55-1.02); EST Glomerular Filtration Rate 73 mL/min (>60); Est Glom Filt Rate - Afr Amer 88 mL/min (>60); Estimated Creatinine Clearance 68.25 ml/min; Globulin 3.6 g/dL (2.2-4.2); Glucose 154 mg/dL (74-106); Potassium 3.2 mmol/L (3.5-5.1); Protein, Total 6.6 g/dL (6.4-8.2); Sodium Level 137 mmol/L (136-145)
[2019-08-08 14:37] LABS: Lactic Acid 1.9 mmol/L (0.4-2.0)
[2019-08-08 16:04] LABS: Mucous, Urine 0 SEEN /hpf (<or=2+); Squamous Epithelial Cells - UA 0 SEEN /hpf (5-10)
[2019-08-08 16:14] LABS: Color, Urine Straw (Yellow); Glucose, Dipstick Normal (Normal); Ketone-Dipstick Negative (Negative); Leukocyte Esterase-Dipstick 500 /ul (Negative); Nitrite-Dipstick Negative (Negative); Occult Blood-Urine 250 /ul (Negative); Protein-Dipstick 15 mg/dl (Negative); Specific Gravity, Urine 1.005 (1.002-1.030); Urine Bilirubin Dipstick Negative (Negative); Urine Clarity Cloudy (Clear); Urine Urobilinogen Normal (Normal)
[2019-08-08 16:29] LABS: White Blood Cells >100 SEEN /hpf (0-5)
[2019-08-08 16:30] LABS: Bacteria 2+ /hpf (None Seen); Red Blood Cells-Urine 0-5 SEEN /hpf (0-5)
--- NOTE | 2019-08-08 16:37 | CT_ITS ---
STUDY: CT ABDOMEN AND PELVIS WITHOUT CONTRAST REASON FOR EXAM: Female, 63 years old. Nausea/vomiting. 2 days. Cough. RADIATION DOSAGE (If Supplied By Facility): CTDIvol = ( 24.18 ) mGy, DLP = ( 1328.96 ) mGycm TECHNIQUE: Transaxial images were obtained from the dome of the diaphragm to the symphysis pubis without oral contrast, and without intravenous contrast. Sagittal and coronal images were reconstructed. Individualized dose optimization techniques were used for this CT. COMPARISON: December 01, 2018 FINDINGS: The visualized lung bases are unremarkable. The visualized portions of the heart are within normal limits. The lack of intravenous contrast limits the evaluation of solid visceral organs. Normal liver. There is non-visualization of the gallbladder, which may be secondary to either contraction or a prior cholecystectomy. Normal spleen. There is diffuse atrophy of the pancreas. Normal bilateral adrenal glands. There is a right renal cyst. Normal left kidney. Normal visualized stomach. Normal small intestine. Normal colon. The appendix is visualized and appears normal. There is diffuse atherosclerotic calcification of the abdominal aorta, without a demonstrated aneurysm. Normal inferior vena cava. Normal retroperitoneum. Normal urinary bladder. There is a small umbilical hernia containing fat. There are subcutaneous calcifications that are grossly stable within the lower back which may reflect injection granulomas. There are diffuse degenerative changes of the visualized lumbar spine. CT/Abdomen/Pelvis without Cont IMPRESSION: No acute intra-abdominal process. Electronically Signed: Christy Pinto MD at 17:10 EDT Tel , Service support ,
--- NOTE | 2019-08-08 18:10 | HP.PCM_ITS ---
Problem List (1) Sepsis Status: Acute Qualifiers: Sepsis acute organ dysfunction status: unspecified (2) UTI (urinary tract infection) Status: Acute Qualifiers: Urinary tract infection type: acute cystitis Hematuria presence: without hematuria Qualified Code(s): N30.00 - Acute cystitis without hematuria (3) DDD (degenerative disc disease), lumbar Status: Chronic (4) Hyperlipidemia Status: Chronic Qualifiers: Hyperlipidemia type: unspecified Qualified Code(s): E78.5 - Hyperlipidemia, unspecified (5) Essential (primary) hypertension Status: Chronic (6) Paroxysmal atrial fibrillation Status: Chronic History of Present Illness Date of Admission: 08/08/19 Chief Complaint: Fever, lower abdominal pain - 5 days The patient is a 63 year old F with multiple comorbidities who comes in with fever and lower abdominal discomfort as well as dysuria, frequency ongoing for 5 days. Patient reports having the symptoms and was having fevers at home. Denied any vomiting but she has nausea. Also admitted to upper respiratory symptoms including nasal congestion and cough. She denied any sick contacts Vitals in the ED showed temperature 102.7 F, heart rate 122, respiratory rate was 29, blood pressure was 136/78, SPO2 was 95% on room air. WBC count was 14.2, hemoglobin 12.4, platelet count 238, INR 1.4, sodium is 137, potassium 3.2, chloride 102, bicarbonate 27, BUN 20, creatinine 0.84, lactic acid is 1.9. UA was cloudy, occult blood positive, leukocyte esterase 500, WBC count more than 100. Chest x-ray showed increased marking of the left lung base relative atelectasis. Abdominal CT and pelvis is unremarkable. Past Medical History Past Medical History (Chronic Problems): Chronic Problems (Last Reviewed 05/31/19 @ 10:11 by Dayton Cohen MD) Persistent atrial fibrillation (Chronic) DDD (degenerative disc disease), lumbar (Chronic) Segmental and somatic dysfunction of thoracic region (Chronic) Segmental and somatic dysfunction of pelvic region (Chronic) Segmental and somatic dysfunction of lumbar region (Chronic) Nonischemic cardiomyopathy (Chronic) Hyperlipidemia (Chronic) Essential (primary) hypertension (Chronic) Paroxysmal atrial fibrillation (Chronic) Atrial fibrillation and flutter (Chronic) Medical History: Medical History (Last Reviewed 05/31/19 @ 10:11 by Dayton Cohen MD) Persistent atrial fibrillation (Chronic) I48.1 DDD (degenerative disc disease), lumbar (Chronic) M51.36 Segmental and somatic dysfunction of thoracic region (Chronic) M99.02 Segmental and somatic dysfunction of pelvic region (Chronic) M99.05 Segmental and somatic dysfunction of lumbar region (Chronic) M99.03 Nonischemic cardiomyopathy (Chronic) I42.8 Hyperlipidemia (Chronic) E78.5 Essential (primary) hypertension (Chronic) I10 Paroxysmal atrial fibrillation (Chronic) I48.0 Atrial fibrillation and flutter (Chronic) I48.91, I48.92 Segmental and somatic dysfunction of lumbar region M99.03 Segmental and somatic dysfunction of pelvic region M99.05 Segmental and somatic dysfunction of thoracic region M99.02 Anxiety F41.9 Bipolar disorder F31.9 COPD (chronic obstructive pulmonary disease) J44.9 DDD (degenerative disc disease) Degeneration of lumbosacral intervertebral disc M51.37 Fracture of femur, distal, left, closed S72.402A GERD (gastroesophageal reflux disease) K21.9 History of hysterectomy Z90.710 Morbid obesity E66.01 Non-alcoholic cirrhosis K74.60 Obstructive sleep apnea G47.33 Scoliosis of lumbar spine M41.9 Tremor R25.1 Type 2 diabetes mellitus E11.9 Cerebral aneurysm without rupture I67.1 Left PICA Coiling Bilateral lower extremity edema (Inactive) R60.0 Blister (nonthermal), left knee, initial encounter (Inactive) S80.222A Chest pain (Inactive) R07.9 Dizziness and giddiness R42 Edema R60.9 Palpitations (Inactive) R00.2 Shortness of breath R06.02 Allergies morphine Allergy (Verified 08/08/19 13:44) Itching nifedipine [From Procardia] Adverse Reaction (Verified 08/08/19 13:44) Causes elevated BP Home Medications: Ambulatory Orders Medication Instructions Recorded Furosemide 40 mg PO BID 02/05/16 fluoxetine 40 mg capsule 40 mg PO DAILY 12/29/17 cholecalciferol (vitamin D3) 50,000 unit PO LUDWIG 30 Days #4 cap 09/07/18 50,000 unit capsule Ascorbic Acid [Vitamin C] 1,500 mg PO DAILY 10/27/18 Metoprolol Tartrate 75 mg PO BID 10/27/18 Potassium Chloride [Klor-Con M20] 40 meq PO BID 10/27/18 Simvastatin 40 mg PO QHS 10/27/18 albuterol sulfate HFA 90 1 puff INHALATION Q2H PRN 30 Days 04/13/19 mcg/actuation aerosol inhaler #36 g clopidogrel 75 mg tablet 75 mg PO DAILY 04/13/19 lamotrigine 150 mg tablet 150 mg PO DAILY 04/13/19 lorazepam 1 mg tablet 1 mg PO Q12H PRN PRN 22 Days #44 04/13/19 tab diltiazem CD 240 mg 240 mg PO DAILY #90 cap 07/12/19 capsule,extended release 24 hr Apixaban [Eliquis] 5 mg PO BID 07/19/19 Fesoterodine Fumarate [Toviaz] 8 mg PO DAILY 07/19/19 Pantoprazole Sodium [Protonix] 40 mg PO DAILY 08/08/19 Surgical History: Surgical History (Last Reviewed 05/31/19 @ 10:11 by Dayton Cohen MD) History of carpal tunnel release of both wrists Z98.890 vaginal fistula repair History of carpal tunnel release Z98.890 History of left heart catheterization Onset Date: 01/2014 Z98.890 01/2013, 01/2014 History of tonsillectomy and adenoidectomy Z98.890 History of total left knee replacement (TKR) Z96.652 History of total right knee replacement (TKR) Z96.651 Hx of cholecystectomy Z90.49 left PICA coiling Onset Date: 02/2019 Surgical History: - - T+A, Cholecystectomy, Hysterectomy, Vaginal fistula repairs, L TKR, Bunion/hammertoe RLE, Carpal tunnel BL. 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 Denies: Weight Change Eyes: Denies: Blurred vision, Cataracts, Conjunctivae Inflammation, Pain, Redness, Vision Change HEENT: Denies: Difficulty Hearing, Difficulty Swallowing, Head Aches, Hearing Changes, Sinus Congestion, Sinus Drainage Cardiovascular: Denies: Chest Pain, Claudication, Orthopnea, Palpitations, Paroxysmal Noc. Dyspnea Respiratory: Denies: Cough, Hemoptysis, Shortness of breath at rest, Shortness of breath upon exertion, Sputum production Gastrointestinal: Denies: Abdominal Pain, Hematemesis, Hematochezia, Nausea, Vomiting Genitourinary: Denies: Dysuria, Frequency Musculoskeletal: Denies: Joint Pain, Joint stiffness, Joint swelling, Joint Tenderness Skin: Denies: Rash, Wounds Neurological: Denies: Difficulty swallowing, Focal weakness, Numbness, Tingling Psychiatric: Denies: Anxiety, Depression, Homicidal Ideations, Suicidal Ideations Hematologic/ Lymphatic: Denies: Easy Bruising, Easy Bleeding VTE Information - Inpt Only VTE Present on Admission: No VTE Pharm Prophylaxis ordered?: Yes Patient Problems: Active and Suspected Problems (Last Reviewed 05/31/19 @ 10:11 by Dayton Cohen MD) Sepsis (Acute) UTI (urinary tract infection) (Acute) - Physical Exam General: Alert, Oriented x3, Cooperative, No apparent distress HEENT: Atraumatic, PERRLA, EOMI, Normocephalic Oral: Moist Mucosa Neck: Supple Lungs: Normal air movement, Diminished - at the lung bases Cardiovascular: Regular rate, Regular Rhythm, Normal S1, Normal S2, No murmurs Abdomen: Bowel Sounds Present, Soft, Non Tender, Non-Distended, No Hepato- splenomegaly Extremities: No edema Skin: No rashes, No breakdown Musculoskeletal: No Tenderness to Palpation of Joints or Extremities Lymphatic: No Cervical, Supraclavicular, or Inguinal Adenopathy Neurological: Cranial nerves II-XII grossly intact, Neuro grossly intact Psych/Mental Status: Normal Affect, Appropriate Vital Signs Temp Pulse Resp BP Pulse Ox 98.4 F 100 21 H 107/66 98 08/08/19 16:21 08/08/19 18:05 08/08/19 18:05 08/08/19 18:05 08/08/19 18:05 Oxygen Flow Rate (L/min) 2 Oxygen Delivery Method Nasal Cannula Weight: 130 kg Body Mass Index (BMI) 43.5 Intake and Output for Last 24 Hours 08/06/19 08/07/19 08/08/19 23:59 23:59 23:59 Intake Total 2049.0 / 2049.0 Balance 2049.0 / 2049.0 Laboratory Tests Past 24 Hrs 08/08/19 08/08/19 08/08/19 14:00 14:00 14:00 WBC 14.2 H RBC 4.34 Hgb 12.4 Hct 38.2 MCV 88.0 MCH 28.6 MCHC 32.5 RDW Std Deviation 48.2 H RDW Coeff of Eric 14.8 H Plt Count 238 MPV 10.3 Immature Gran % (Auto) 0.600 Neut % (Auto) 86.1 H Lymph % (Auto) 5.9 L [place] % (Auto) 6.6 Eos % (Auto) 0.4 Baso % (Auto) 0.4 Absolute Neuts (auto) 12.2 H Absolute Lymphs (auto) 0.83 Nucleated RBC % 0 PT 17.3 H INR 1.4 APTT 30.7 Sodium 137 Potassium 3.2 L Chloride 102 Carbon Dioxide 27.0 Anion Gap 8 BUN 20 H Creatinine 0.84 Estim Creat Clear Calc 68.25 Est GFR (MDRD) Af Amer 88 Est GFR (MDRD) Non-Af 73 BUN/Creatinine Ratio 23.9 H Glucose 154 H Lactic Acid Calcium 8.4 L Total Bilirubin 1.00 AST 12 L ALT 16 Alkaline Phosphatase 100 Total Protein 6.6 Albumin 3.0 L Globulin 3.6 Albumin/Globulin Ratio 0.8 L Urine Color Urine Clarity Urine pH Ur Specific [place] Urine Protein Urine Glucose (UA) Urine Ketones Urine Occult Blood Urine Nitrite Urine Bilirubin Urine Urobilinogen Ur Leukocyte Esterase Urine RBC Urine WBC Ur Squamous Epith Cells Urine Bacteria Urine Mucus 08/08/19 08/08/19 14:00 15:50 WBC RBC Hgb Hct MCV MCH MCHC RDW Std Deviation RDW Coeff of Eric Plt Count MPV Immature Gran % (Auto) Neut % (Auto) Lymph % (Auto) [place] % (Auto) Eos % (Auto) Baso % (Auto) Absolute Neuts (auto) Absolute Lymphs (auto) Nucleated RBC % PT INR APTT Sodium Potassium Chloride Carbon Dioxide Anion Gap BUN Creatinine Estim Creat Clear Calc Est GFR (MDRD) Af Amer Est GFR (MDRD) Non-Af BUN/Creatinine Ratio Glucose Lactic Acid 1.9 Calcium Total Bilirubin AST ALT Alkaline Phosphatase Total Protein Albumin Globulin Albumin/Globulin Ratio Urine Color Straw Urine Clarity Cloudy Urine pH 7.0 Ur Specific [place] 1.005 Urine Protein 15 H Urine Glucose (UA) Normal Urine Ketones Negative Urine Occult Blood 250 H Urine Nitrite Negative Urine Bilirubin Negative Urine Urobilinogen Normal Ur Leukocyte Esterase 500 H Urine RBC 0-5 SEEN Urine WBC >100 SEEN Ur Squamous Epith Cells 0 SEEN Urine Bacteria 2+ Urine Mucus 0 SEEN Assessment/Plan All Active Problems (Last Reviewed 05/31/19 @ 10:11 by Dayton Cohen MD) Sepsis (Acute) UTI (urinary tract infection) (Acute) Acute exacerbation of chronic obstructive pulmonary disease (COPD) (Resolved) Acute fall (Resolved) Allergic reaction due to correct medicinal substance properly administered (Resolved) Atrial fibrillation with RVR (Resolved) CAP (community acquired pneumonia) (Resolved) Cellulitis of lower leg (Resolved) History of MRSA infection (Resolved) Hypokalemia (Resolved) Influenza B (Resolved) Laceration of head (Resolved) Metabolic alkalosis (Resolved) Non-healing wound of lower extremity (Resolved) Parainfluenza virus bronchopneumonia (Resolved) Pneumonia (Resolved) Sinusitis (Resolved) Syncope and collapse (Resolved) 63 year old F with multiple comorbidities who comes in with fever and lower abdominal discomfort as well as dysuria, frequency ongoing for 5 days. 1. Sepsis secondary to UTI, started on IV Zosyn Plan: Admit to [facility], continue IV ceftriaxone, follow-up with urine cultures 2. Paroxysmal atrial fibrillation, heart rate is fairly controlled, continue on Cardizem and metoprolol, apixaban 3. Dyslipidemia, on statin 4. Anxiety/depression, on Prozac 5. DVT prophylaxis-apixaban Code Visit Inpatient E&M: 94784 Init Hosp L2
[2019-08-08] MEDS: Ceftriaxone 1 GM/50 ML BAG IV (19:21)
[2019-08-08] MEDS: 0.9% Normal Saline 1,000 ML 100 ML IV (20:09)
[2019-08-08] MEDS: APIXABAN 5 MG TABLET PO (21:23)
[2019-08-08] MEDS: traZODone 100 MG Tablet PO (21:23)
[2019-08-08] MEDS: Atorvastatin Calcium 20 MG Tablet PO (21:23)
[2019-08-08] MEDS: Metoprolol Tartrate 25 MG Tablet 75 MG PO (21:23)
[2019-08-08 21:31] LABS: Bedside Glucose 127 mg/dL (70-110)
[2019-08-09] VITALS (15 sets, daily range): BP systolic 95–140; BP diastolic 57–82; PULSE 75–107; RESP 16–18; TEMP 36.7–38.6; O2SAT 92–94
[2019-08-09] MEDS: 0.9% Normal Saline 1,000 ML 100 ML IV (03:48)
[2019-08-09 08:36] LABS: Absolute Lymphocyte Count 0.94 X10^3/uL (0.83-4.51); Absolute Neutrophil Count 11.6 X10^3/uL (2.0-7.7); Basophil# 0.02 X10^3/uL; Basophil% 0.1 % (0-1); Eosinophil# 0.02 X10^3/uL; Eosinophils% 0.1 % (0-5); Hematocrit 36.6 % (37-47); Hemoglobin 11.5 g/dL (12.0-15.0); Lymphocyte # 0.94 X10^3/ul (4.0); Mean Corp Hgb Conc 31.4 g/dL (32-36); Mean Corpuscular Volume 89.3 fL (81-99); Mean Platelet Vol. 10.4 fl (6.2-12.0); Monocyte# 0.88 X10^3/uL; Monocyte% 6.5 % (0-10); NRBC Flagged by Analyzer 0 % (0-5); Neutrophil # 11.56 X10^3/uL (2.7-7.7); Neutrophil % 85.8 % (47-70); Platelet Count 201 K/mm3 (150-450); RBC Distribution Width SD 49.4 fl (35.1-43.9); White Blood Count 13.5 K/mm3 (4.4-11.0)
[2019-08-09 09:00] LABS: Anion Gap 10 (5-15); BUN 14 mg/dL (7-18); Calcium,Total 8.1 mg/dL (8.5-10.1); Chloride 104 mmol/L (98-107); Creatinine, Serum 0.58 mg/dL (0.55-1.02); EST Glomerular Filtration Rate 110 mL/min (>60); Est Glom Filt Rate - Afr Amer 133 mL/min (>60); Estimated Creatinine Clearance 98.85 ml/min; Glucose 115 mg/dL (74-106); Potassium 3.6 mmol/L (3.5-5.1); Sodium Level 139 mmol/L (136-145)
[2019-08-09] MEDS: Ceftriaxone 1 GM/50 ML BAG IV (10:05)
[2019-08-09] MEDS: dilTIAZem CD 240 MG Capsule PO (10:06)
[2019-08-09] MEDS: Tolterodine Tartrate 4 MG CAP.SA PO (10:06)
[2019-08-09] MEDS: APIXABAN 5 MG TABLET PO ×2 (10:06→21:34)
[2019-08-09] MEDS: FLUoxetine 20 MG Capsule 40 MG PO (10:06)
[2019-08-09] MEDS: Metoprolol Tartrate 25 MG Tablet 75 MG PO ×2 (10:06→21:34)
[2019-08-09] MEDS: Ascorbic Acid 500 MG Tablet 1500 MG PO (10:06)
[2019-08-09] MEDS: Clopidogrel Bisulfate 75 MG Tablet PO (10:06)
[2019-08-09] MEDS: lamoTRIgine 150 MG Tablet PO (10:06)
[2019-08-09] MEDS: Furosemide 40 MG Tablet PO ×2 (10:06→18:00)
--- NOTE | 2019-08-09 11:01 | PCM.PN.HOSP ---
Patient Problems: Active and Suspected Problems (Last Reviewed 05/31/19 @ 10:11 by Dayton Cohen MD) Sepsis (Acute) UTI (urinary tract infection) (Acute) Subjective: Patient was seen and examined. She feels about the same. Her T-max is 102.7. Running low-grade fevers this morning. Denies any dizziness or palpitations. Still has lower abdominal pain and epigastric pain. Denies any diarrhea. Objective: Physical Exam General: Alert, Oriented x3, Cooperative, No apparent distress HEENT: Atraumatic, PERRLA, EOMI, Normocephalic Oral: Moist Mucosa Neck: Supple Lungs: Diminished - at both lung bases Cardiovascular: Regular rate, Regular Rhythm, Normal S1, Normal S2, No murmurs Abdomen: Bowel Sounds Present, Soft, tenderness over the epigastric and suprapubic regions, Non-Distended, No Hepato-splenomegaly Extremities: No edema Skin: No rashes, No breakdown Musculoskeletal: No Tenderness to Palpation of Joints or Extremities Lymphatic: No Cervical, Supraclavicular, or Inguinal Adenopathy Neurological: Cranial nerves II-XII grossly intact, Neuro grossly intact Psych/Mental Status: Normal Affect, Appropriate Vitals/I&O's: Vital Signs Temp Pulse Resp BP Pulse Ox 99.4 F H 107 H 18 140/82 H 92 08/09/19 10:11 08/09/19 10:06 08/09/19 07:50 08/09/19 07:50 08/09/19 07:50 Oxygen Flow Rate (L/min) 2 Oxygen Delivery Method Room Air Weight: 126.3 kg Body Mass Index (BMI) 42.3 Intake and Output for Last 24 Hours 08/07/19 08/08/19 08/09/19 23:59 23:59 23:59 Intake Total 2099.0 / 2099.0 1401.66 / 1401.66 Balance 2099.0 / 2099.0 1401.66 / 1401.66 Microbiology Past 72 Hours 08/08/19 15:50 Urine, Clean Catch Urine Culture - Preliminary Presumptive E. coli 08/08/19 19:55 Mucosa - Nasopharyngeal Respiratory Panel (PCR) - Final Laboratory Results 08/08/19 14:00: WBC 14.2 H, RBC 4.34, Hgb 12.4, Hct 38.2, MCV 88.0, MCH 28.6, MCHC 32.5, RDW Std Deviation 48.2 H, RDW Coeff of Eric 14.8 H, Plt Count 238, MPV 10.3, Immature Gran % (Auto) 0.600, Neut % (Auto) 86.1 H, Lymph % (Auto) 5.9 L, [place] % (Auto) 6.6, Eos % (Auto) 0.4, Baso % (Auto) 0.4, Absolute Neuts (auto) 12.2 H, Absolute Lymphs (auto) 0.83, Nucleated RBC % 0 08/08/19 14:00: PT 17.3 H, INR 1.4, APTT 30.7 08/08/19 14:00: Sodium 137, Potassium 3.2 L, Chloride 102, Carbon Dioxide 27.0, Anion Gap 8, BUN 20 H, Creatinine 0.84, Estim Creat Clear Calc 68.25, Est GFR (MDRD) Af Amer 88, Est GFR (MDRD) Non-Af 73, BUN/Creatinine Ratio 23.9 H, Glucose 154 H, Calcium 8.4 L, Total Bilirubin 1.00, AST 12 L, ALT 16, Alkaline Phosphatase 100, Total Protein 6.6, Albumin 3.0 L, Globulin 3.6, Albumin/Globulin Ratio 0.8 L 08/08/19 14:00: Lactic Acid 1.9 08/08/19 15:50: Urine Color Straw, Urine Clarity Cloudy, Urine pH 7.0, Ur Specific [place] 1.005, Urine Protein 15 H, Urine Glucose (UA) Normal, Urine Ketones Negative, Urine Occult Blood 250 H, Urine Nitrite Negative, Urine Bilirubin Negative, Urine Urobilinogen Normal, Ur Leukocyte Esterase 500 H, Urine RBC 0-5 SEEN, Urine WBC >100 SEEN, Ur Squamous Epith Cells 0 SEEN, Urine Bacteria 2+, Urine Mucus 0 SEEN 08/08/19 21:23: POC Glucose 127 H 08/09/19 08:20: WBC 13.5 H, RBC 4.10 L, Hgb 11.5 L, Hct 36.6 L, MCV 89.3, MCH 28.0, MCHC 31.4 L, RDW Std Deviation 49.4 H, RDW Coeff of Eric 15.0 H, Plt Count 201, MPV 10.4, Immature Gran % (Auto) 0.500, Neut % (Auto) 85.8 H, Lymph % (Auto) 7.0 L, [place] % (Auto) 6.5, Eos % (Auto) 0.1, Baso % (Auto) 0.1, Absolute Neuts (auto) 11.6 H, Absolute Lymphs (auto) 0.94, Nucleated RBC % 0 08/09/19 08:20: Sodium 139, Potassium 3.6, Chloride 104, Carbon Dioxide 25.0, Anion Gap 10, BUN 14, Creatinine 0.58, Estim Creat Clear Calc 98.85, Est GFR (MDRD) Af Amer 133, Est GFR (MDRD) Non-Af 110, BUN/Creatinine Ratio 24.0 H, Glucose 115 H, Calcium 8.1 L Current Medications Acetaminophen (Tylenol) 650 mg PO Q6H PRN PRN PRN Reason: fever/pain Apixaban (Eliquis) 5 mg PO BID [facility] Last Admin: 08/09/19 10:06 Dose: 5 mg Documented by: Ascorbic Acid (Vitamin C) 1,500 mg PO DAILY [facility] Last Admin: 08/09/19 10:06 Dose: 1,500 mg Documented by: Atorvastatin Calcium (Lipitor) 20 mg PO QHS [facility] Last Admin: 08/08/19 21:23 Dose: 20 mg Documented by: Clopidogrel Bisulfate (Plavix) 75 mg PO DAILY [facility] Last Admin: 08/09/19 10:06 Dose: 75 mg Documented by: Dextrose (D50w Syringe) 0 gm IV X1 PRN; Protocol PRN Reason: Hypoglycemia Diltiazem HCl (Cardizem Cd) 240 mg PO DAILY [facility] Last Admin: 08/09/19 10:06 Dose: 240 mg Documented by: Ergocalciferol (Vitamin D) 50,000 unit PO LUDWIG [facility] Fluoxetine HCl (Prozac) 40 mg PO DAILY [facility] Last Admin: 08/09/19 10:06 Dose: 40 mg Documented by: Furosemide (Lasix) 40 mg PO BIDLX [facility] Last Admin: 08/09/19 10:06 Dose: 40 mg Documented by: Glucagon () 1 mg IM .X1 PRN PRN Reason: Hypoglycemia Sodium Chloride () 1,000 mls @ 100 mls/hr IV .Q10H [facility] Stop: 08/09/19 14:24 Last Infusion: 08/09/19 10:11 Dose: 0 mls/hr Documented by: Ceftriaxone Sodium (Rocephin) 1 gm in 50 mls @ 100 mls/hr IV Q24 [facility] Last Admin: 08/09/19 10:05 Dose: 100 mls/hr Documented by: Lamotrigine (Lamictal) 150 mg PO DAILY [facility] Last Admin: 08/09/19 10:06 Dose: 150 mg Documented by: Lorazepam (Ativan) 1 mg PO Q12H PRN PRN Reason: ANXIETY Metoprolol Tartrate (Lopressor (Beta Danielle)) 75 mg PO BID [facility] Last Admin: 08/09/19 10:06 Dose: 75 mg Documented by: Tolterodine Tartrate (Detrol La) 4 mg PO DAILY [facility] Last Admin: 08/09/19 10:06 Dose: 4 mg Documented by: Trazodone HCl (Desyrel) 100 mg PO QHS [facility] Last Admin: 08/08/19 21:23 Dose: 100 mg Documented by: Medical Necessity - Tobacco Use Smoking Status: Former smoker Tobacco Use: Non-smoker Assessment/Plan All Active Problems (Last Reviewed 05/31/19 @ 10:11 by Dayton Cohen MD) Sepsis (Acute) UTI (urinary tract infection) (Acute) Acute exacerbation of chronic obstructive pulmonary disease (COPD) (Resolved) Acute fall (Resolved) Allergic reaction due to correct medicinal substance properly administered (Resolved) Atrial fibrillation with RVR (Resolved) CAP (community acquired pneumonia) (Resolved) Cellulitis of lower leg (Resolved) History of MRSA infection (Resolved) Hypokalemia (Resolved) Influenza B (Resolved) Laceration of head (Resolved) Metabolic alkalosis (Resolved) Non-healing wound of lower extremity (Resolved) Parainfluenza virus bronchopneumonia (Resolved) Pneumonia (Resolved) Sinusitis (Resolved) Syncope and collapse (Resolved) 63 year old F with multiple comorbidities who comes in with fever and lower abdominal discomfort as well as dysuria, frequency ongoing for 5 days. 1. Sepsis secondary to possible E. Coli UTI, Still running fevers, blood cultures are pending, Urine cultures growing possible E. coli IV ceftriaxone, day 2, will continue same pending urine sensitivities 2. Paroxysmal atrial fibrillation,rate controlled, continue on Cardizem and metoprolol, apixaban 3. Dyslipidemia, on statin 4. Anxiety/depression, on Prozac, tra 5. DVT prophylaxis-apixaban 6. Disposition: Pending PT/OT evaluations Code Visit Inpatient E&M: 99644 Subs Hosp L2
--- NOTE | 2019-08-09 13:30 | CASEMGMT ---
RN ISABEL SOFTWARE RELEASE MANAGER CM to room to meet with patient for initial transition planning/care coordination assessment. DELIO HALL introduced self and role at [facility]. Pt voices understanding and consents to assessment at this time. Pt resting in bed in no distress at this time. Pt is A/O at this time and answers all questions appropriately. Care providers, pharmacy, and demographics verified/updated at this time. PCP: [facility] Specialists: Noel--hand tube winder, Josue--cardiovascular surgical tech, Kash--urologist Preferred Pharmacy: [place] Insurance: JAZIO Prescription Benefit: Yes Living Will/HPOA: does not have LW or HCPOA . Interested in more information and would like to talk to SW to complete paperwork. STEFANIE Crisostomo, made aware. LNOK: Has one sister who lives in [place] and a brother who lives in [place]. Pt had one daughter who last year from cancer. She has a grandaughter, Inessa. Living Arrangements: Lives with her boyfriend, Getachew Dave. She states she has been becoming more weak and he assists her with ADL's such as bathing and dressing and household mgmt tasks. They live in a one-story home w/one step to enter. Transportation: Pt states drives self and states no transportation concerns at this time. She states her boyfriend also drives. DME: has the following DME: extended tub bench, rails/grab bars, hand held shower, lift chair, and walker. Pt states she is interested in getting a rollator. She states the walker she has currently was processed through insurance but that it has been about 6 years ago. She was made aware there is usually a co-pay for a rollator, as insurance does not usually cover it at 100%. She was also made aware that if she does go to a SNF, that they could assist her with getting a rollator prior to her returning home. She voiced understanding. HHC/SNF: Has been to [facility] in the past. Pt states she feels she is too weak to return home and would like to go to a SNF. Pt states, i've been on the 4th floor here at the hospital and I'd prefer to go back there. STEFANIE, Ladonna Castro, made aware. STEFANIE/ISABEL to follow for further discharge planning/needs. Pt voices no further concerns/needs at this time. Advised pt to ask for SW/CM if any further questions/concerns/needs arise. Voices understanding. PLAN: SNF If pt does not qualify for SNF, please re-assess for any HHC/OP therapy needs and rollator @ discharge. Barbi BSN RN CM
[2019-08-09] MEDS: Acetaminophen 325 MG Tablet 650 MG PO (13:53)
--- NOTE | 2019-08-09 14:12 | CHAPLAIN ---
Type of Pastoral Visit _x__ Initial Visit ___ Follow-up Visit ___ On-call Visit ___ General Patient Visit ___ Spiritual Assessment ___ Family Conference ___ Bereavement ___ Rapid Response ___ Code Blue ___ Other (describe below) Pastoral Care Referral From _x__ Patient ___ Family ___ Nurse ___ Physician ___ Athletic Team Physician ___ Repairer ___ Other (describe below) Sacrament/Intervention _x__ Active listening ___ Anointing ___ Rastafarian ___ Bereavement ___ Communion ___ Elke exploration ___ ___ Life review _x__ Prayer ___ Reconciliation ___ Sacrament of Sick _x__ Supportive presence ___ Wedding ___ Other (describe below) Pastoral Comments
--- NOTE | 2019-08-09 15:00 | CASEMGMT ---
Addendum entered by Ladonna Castro 08/09/19 16:02: STEFANIE placed a call to Mariza with [employer]. Mariza states she is not able to pull up pt's Medicare without pt's ID number. Mariza encouraged this worker to clal Emergency Department registration as they may be able to pull up pt's Medicare. STEFANIE placed a call to ED registration and per Audrey pt's insurance is showing [employer]. STEFANIE met with pt and informed her that pt's Medicare card needs to be brought in to the hospital so [facility] can run her ID number. Pt states she will see if her card can be brought into the hospital tonight. STEFANIE provided pt with list of SNF that accept pt's [employer] and asked pt for a few options and informed pt that if pt does have [employer] then pre-cert will need to be obtained and it is important to get referrals sent off. Pt states her first choice is [facility] and second choice is [facility]. STEFANIE informed pt that if she gets her Medicare card and has Medicare then pt will have more options for SNF. Pt states understanding. STEFANIE faxed referral to Marbella at [facility]. Plan: SNF pending acceptance and pre-cert. STEFANIE working on confirming if pt has Medicare Original Note: Social Work Note RN ISABEL Méndez updated this worker that pt would like to complete advanced directives and would like to go to [facility] at discharge as pt has been there before. STEFANIE met with pt and introduced self and role at [facility]. Pt is alert and orientated x3. STEFANIE informed pt that to go to [facility] pt has to have a qualifying diagnosis and pt has been admitted with sepsis secondary to UTI and that is not a qualifying diagnosis for [facility]. STEFANIE provided pt with list of SNF that accept pt's insurance. Pt states that today is the first and her Medicare becomes active today. Pt states that she will have Medicare primary and [employer] secondary. STEFANIE informed pt that that changes things because if pt has Medicare she can go to any SNF that is on SNF list. STEFANIE informed pt that this worker will check with [employer] and have them run pt's account to confirm if pt's Medicare will become active today. STEFANIE asked pt about completed advanced directives. Pt denied wanting to complete advanced directives at this time. STEFANIE placed a call to [employer] and left a message requesting to check to confirm if pt's Medicare becomes active today. SW waiting for call back. Plan: SNF pending acceptance. SW waiting to determine if pt does have Medicare. Ladonna Castro TRIMMER MACHINE, INTERIM CONTROLLER
[2019-08-09] MEDS: Atorvastatin Calcium 20 MG Tablet PO (21:34)
[2019-08-09] MEDS: traZODone 100 MG Tablet PO (21:34)
[2019-08-10] VITALS (11 sets, daily range): BP systolic 91–112; BP diastolic 58–71; PULSE 82–98; RESP 16–24; TEMP 36.4–37.6; O2SAT 93–96
[2019-08-10 05:53] LABS: Absolute Lymphocyte Count 1.01 X10^3/uL (0.83-4.51); Absolute Neutrophil Count 9.7 X10^3/uL (2.0-7.7); Basophil# 0.03 X10^3/uL; Basophil% 0.3 % (0-1); Eosinophil# 0.07 X10^3/uL; Eosinophils% 0.6 % (0-5); Hematocrit 36.2 % (37-47); Hemoglobin 11.4 g/dL (12.0-15.0); Lymphocyte # 1.01 X10^3/ul (4.0); Lymphocyte % 8.8 % (19-41); Mean Corp Hgb Conc 31.5 g/dL (32-36); Mean Corpuscular Hgb 28.1 pg (27.0-32.0); Mean Corpuscular Volume 89.2 fL (81-99); Mean Platelet Vol. 10.8 fl (6.2-12.0); Monocyte# 0.69 X10^3/uL; NRBC Flagged by Analyzer 0 % (0-5); Neutrophil # 9.65 X10^3/uL (2.7-7.7); Neutrophil % 83.6 % (47-70); Platelet Count 211 K/mm3 (150-450); RBC Distribution Width CV 15.2 % (11.6-14.6); RBC Distribution Width SD 50.1 fl (35.1-43.9); Red Blood Count 4.06 M/mm3 (4.2-5.4); White Blood Count 11.5 K/mm3 (4.4-11.0)
[2019-08-10 06:12] LABS: Anion Gap 8 (5-15); BUN 12 mg/dL (7-18); BUN/Creat Ratio 15.6 RATIO (10-20); Calcium,Total 8.3 mg/dL (8.5-10.1); Chloride 99 mmol/L (98-107); Creatinine, Serum 0.77 mg/dL (0.55-1.02); EST Glomerular Filtration Rate 80 mL/min (>60); Est Glom Filt Rate - Afr Amer 97 mL/min (>60); Estimated Creatinine Clearance 74.46 ml/min; Glucose 98 mg/dL (74-106); Potassium 3.2 mmol/L (3.5-5.1); Sodium Level 138 mmol/L (136-145)
--- NOTE | 2019-08-10 09:08 | PN_ITS ---
Patient Problems: Active and Suspected Problems (Last Reviewed 05/31/19 @ 10:11 by Dayton Cohen MD) Sepsis (Acute) UTI (urinary tract infection) (Acute) Subjective: Patient was seen and examined. She feels about the same. Denies any fever or chills. T-max over the last 24 hours is 101.5. Denies any more dysuria or lower abdominal tenderness. Complains of a dull epigastric pain. Objective: Physical Exam General: Alert, Oriented x3, Cooperative, No apparent distress HEENT: Atraumatic, PERRLA, EOMI, Normocephalic Oral: Moist Mucosa Neck: Supple Lungs: Diminished - at both lung bases Cardiovascular: Regular rate, Regular Rhythm, Normal S1, Normal S2, No murmurs Abdomen: Bowel Sounds Present, Soft, tenderness over the epigastric and suprapubic regions, Non-Distended, No Hepato-splenomegaly Extremities: No edema Skin: No rashes, No breakdown Musculoskeletal: No Tenderness to Palpation of Joints or Extremities Lymphatic: No Cervical, Supraclavicular, or Inguinal Adenopathy Neurological: Cranial nerves II-XII grossly intact, Neuro grossly intact Psych/Mental Status: Normal Affect, Appropriate Vitals/I&O's: Vital Signs Temp Pulse Resp BP Pulse Ox 98.9 F 85 16 101/58 L 93 08/10/19 08:15 08/10/19 08:15 08/10/19 08:15 08/10/19 08:15 08/10/19 08:15 Oxygen Flow Rate (L/min) 2 Oxygen Delivery Method Room Air Weight: 126.3 kg Body Mass Index (BMI) 42.3 Intake and Output for Last 24 Hours 08/08/19 08/09/19 08/10/19 23:59 23:59 23:59 Intake Total 2099.0 / 2099.0 2523.33 / 2523.33 Balance 2099.0 / 2099.0 2523.33 / 2523.33 Microbiology Past 72 Hours 08/08/19 15:50 Urine, Clean Catch Urine Culture - Preliminary Presumptive E. coli 08/08/19 19:55 Mucosa - Nasopharyngeal Respiratory Panel (PCR) - Final Laboratory Results 08/10/19 05:34: WBC 11.5 H, RBC 4.06 L, Hgb 11.4 L, Hct 36.2 L, MCV 89.2, MCH 28.1, MCHC 31.5 L, RDW Std Deviation 50.1 H, RDW Coeff of Eric 15.2 H, Plt Count 211, MPV 10.8, Immature Gran % (Auto) 0.700, Neut % (Auto) 83.6 H, Lymph % (Auto) 8.8 L, [place] % (Auto) 6.0, Eos % (Auto) 0.6, Baso % (Auto) 0.3, Absolute Neuts (auto) 9.7 H, Absolute Lymphs (auto) 1.01, Nucleated RBC % 0 08/10/19 05:34: Sodium 138, Potassium 3.2 L, Chloride 99, Carbon Dioxide 31.0, Anion Gap 8, BUN 12, Creatinine 0.77, Estim Creat Clear Calc 74.46, Est GFR (MDRD) Af Amer 97, Est GFR (MDRD) Non-Af 80, BUN/Creatinine Ratio 15.6, Glucose 98, Calcium 8.3 L Current Medications Acetaminophen (Tylenol) 650 mg PO Q6H PRN PRN PRN Reason: fever/pain Last Admin: 08/09/19 13:53 Dose: 650 mg Documented by: Al Hydroxide/Mg Hydroxide (Mylanta Ii) 30 ml PO Q6H PRN PRN PRN Reason: DYSPEPSIA Apixaban (Eliquis) 5 mg PO BID [facility] Last Admin: 08/09/19 21:34 Dose: 5 mg Documented by: Ascorbic Acid (Vitamin C) 1,500 mg PO DAILY [facility] Last Admin: 08/09/19 10:06 Dose: 1,500 mg Documented by: Atorvastatin Calcium (Lipitor) 20 mg PO QHS [facility] Last Admin: 08/09/19 21:34 Dose: 20 mg Documented by: Clopidogrel Bisulfate (Plavix) 75 mg PO DAILY [facility] Last Admin: 08/09/19 10:06 Dose: 75 mg Documented by: Dextrose (D50w Syringe) 0 gm IV X1 PRN; Protocol PRN Reason: Hypoglycemia Diltiazem HCl (Cardizem Cd) 240 mg PO DAILY [facility] Last Admin: 08/09/19 10:06 Dose: 240 mg Documented by: Ergocalciferol (Vitamin D) 50,000 unit PO [facility] Fluoxetine HCl (Prozac) 40 mg PO DAILY [facility] Last Admin: 08/09/19 10:06 Dose: 40 mg Documented by: Furosemide (Lasix) 40 mg PO BIDLX [facility] Last Admin: 08/09/19 18:00 Dose: 40 mg Documented by: Glucagon () 1 mg IM .X1 PRN PRN Reason: Hypoglycemia Ceftriaxone Sodium (Rocephin) 1 gm in 50 mls @ 100 mls/hr IV Q24 [facility] Last Infusion: 08/09/19 10:35 Dose: Infused Documented by: Lamotrigine (Lamictal) 150 mg PO DAILY [facility] Last Admin: 08/09/19 10:06 Dose: 150 mg Documented by: Lorazepam (Ativan) 1 mg PO Q12H PRN PRN Reason: ANXIETY Metoprolol Tartrate (Lopressor (Beta Danielle)) 75 mg PO BID [facility] Last Admin: 08/09/19 21:34 Dose: 75 mg Documented by: Ondansetron HCl (Zofran) 4 mg IV Q8H PRN PRN PRN Reason: NAUSEA/VOMITING Pantoprazole Sodium (Protonix) 40 mg PO DAILY [facility] Potassium Chloride (Potassium Chl Soln) 20 meq PO BID [facility] Stop: 08/10/19 22:01 Tolterodine Tartrate (Detrol La) 4 mg PO DAILY [facility] Last Admin: 08/09/19 10:06 Dose: 4 mg Documented by: Trazodone HCl (Desyrel) 100 mg PO QHS [facility] Last Admin: 08/09/19 21:34 Dose: 100 mg Documented by: Medical Necessity - Tobacco Use Smoking Status: Former smoker Tobacco Use: Non-smoker Assessment/Plan All Active Problems (Last Reviewed 05/31/19 @ 10:11 by Dayton Cohen MD) Sepsis (Acute) UTI (urinary tract infection) (Acute) Acute exacerbation of chronic obstructive pulmonary disease (COPD) (Resolved) Acute fall (Resolved) Allergic reaction due to correct medicinal substance properly administered (Resolved) Atrial fibrillation with RVR (Resolved) CAP (community acquired pneumonia) (Resolved) Cellulitis of lower leg (Resolved) History of MRSA infection (Resolved) Hypokalemia (Resolved) Influenza B (Resolved) Laceration of head (Resolved) Metabolic alkalosis (Resolved) Non-healing wound of lower extremity (Resolved) Parainfluenza virus bronchopneumonia (Resolved) Pneumonia (Resolved) Sinusitis (Resolved) Syncope and collapse (Resolved) 63 year old F with multiple comorbidities who comes in with fever and lower abdominal discomfort as well as dysuria, frequency ongoing for 5 days. 1. Sepsis secondary to E. Coli UTI, slowly improving Continue on ceftriaxone day 3, will continue to follow-up on sensitivities 2. Hypokalemia, K 3.2, replaced, recheck in am 3. Paroxysmal atrial fibrillation, rate controlled, continue on Cardizem, metoprolol and apixaban 3. Dyslipidemia, on statin 4. Anxiety/depression, on Prozac, trazodone 5. DVT prophylaxis-apixaban 6. Disposition: pending precert to SNF Code Visit Inpatient E&M: 38073 Subs Hosp L2
--- NOTE | 2019-08-10 09:39 | CASEMGMT ---
Addendum entered by Ladonna Castro 08/10/19 09:55: SW received message from Marbella at [facility] stating they are not able to accept pt due to not having any beds. SW waiting to confirm pt's insurance. Original Note: Social Work Note SW received message from Marbella at [facility] stating she will have to check on bed availability this morning and will let this worker know this morning if they have beds available for pt. SW met with pt. SW asked pt if her Medicare card was brought in. Pt states her significant other will be bringing in the card this morning. SW informed pt that at this time [facility] is still showing for pt and it is important to get her Medicare card brought in. Pt states understanding. Plan: SNF pending acceptance/pre-cert. SW waiting to confirm Medicare. Ladonna Castro HARP REGULATOR, WHITE SOURER
--- NOTE | 2019-08-10 10:41 | CASEMGMT ---
Addendum entered by Ladonna Castro 08/10/19 15:12: SW received message from Elizabeth at [facility] stating she is able to accept pt and has submitted for pre-cert. Pt updated. Plan: [facility] pending pre-cert Original Note: Social Work Note SW received pt's Medicare cards. STEFANIE placed a call to Mariza with [employer] and updated her on pt's Medicare ID number. Mariza states pt has [employer] Medicare HMO. STEFANIE in to speak with pt. STEFANIE updated pt that pt's Medicare number was ran and it is showing that pt has [employer] Medicare HMO. STEFANIE provided pt with list of area SNF that accept pt's [employer] HMO. STEFANIE also informed pt that [facility] is not able to accept due to not having any beds at this time. Pt agreeable to [facility]. STEFANIE placed a call to [facility] and spoke with Elizabeth in admissions and provided referral. STEFANIE informed Elizabeth that pt does have [employer] Medicare HMO. Elizabeth request that the fax be sent to [phone]. STEFANIE faxed referral to [facility]. Plan: [facility] pending acceptance and pre-cert Ladonna Castro ELIGIBILITY SERVICES REPRESENTATIVE, ETHANOL OPERATOR
[2019-08-10] MEDS: Pantoprazole Sodium 40 MG Tablet PO (10:47)
[2019-08-10] MEDS: APIXABAN 5 MG TABLET PO ×2 (10:48→21:39)
[2019-08-10] MEDS: Ascorbic Acid 500 MG Tablet 1500 MG PO (10:48)
[2019-08-10] MEDS: dilTIAZem CD 240 MG Capsule PO (10:49)
[2019-08-10] MEDS: lamoTRIgine 150 MG Tablet PO (10:49)
[2019-08-10] MEDS: Tolterodine Tartrate 4 MG CAP.SA PO (10:49)
[2019-08-10] MEDS: Furosemide 40 MG Tablet PO ×2 (10:49→17:04)
[2019-08-10] MEDS: Clopidogrel Bisulfate 75 MG Tablet PO (10:50)
[2019-08-10] MEDS: FLUoxetine 20 MG Capsule 40 MG PO (10:50)
[2019-08-10] MEDS: Ceftriaxone 1 GM/50 ML BAG IV (10:51)
--- NOTE | 2019-08-10 15:22 | CASEMGMT ---
Social Work Living Will and Healthcare POA paperwork completed. Copies placed on chart. Patient named, Inessa Robles, granddaughter for HPO[employer]. Vi Faulkner, CLOSET BUILDER SCRUM MASTER
[2019-08-10] MEDS: Acetaminophen 325 MG Tablet 650 MG PO (18:47)
[2019-08-10] MEDS: traZODone 100 MG Tablet PO (21:39)
[2019-08-10] MEDS: Atorvastatin Calcium 20 MG Tablet PO (21:39)
[2019-08-11] VITALS (17 sets, daily range): BP systolic 82–118; BP diastolic 51–79; PULSE 72–124; RESP 18–24; TEMP 36.6–37.2; O2SAT 95–97
--- NOTE | 2019-08-11 07:19 | PCM.PN.HOSP ---
Patient Problems: Active and Suspected Problems (Last Reviewed 05/31/19 @ 10:11 by Dayton Cohen MD) Sepsis (Acute) UTI (urinary tract infection) (Acute) Subjective: Patient was seen and examined. Her blood pressures are running relatively low. Heart rate is elevated. Her orthostatic vitals are positive. She was dizzy on standing up today. Still complains of epigastric pain and now this morning mild lower abdominal discomfort. She denied any fever or chills. Able to eat her breakfast. Objective: Physical Exam General: Alert, Oriented x3, Cooperative, No apparent distress HEENT: Atraumatic, PERRLA, EOMI, Normocephalic Oral: Moist Mucosa Neck: Supple Lungs: Diminished - at both lung bases Cardiovascular: Regular rate, Regular Rhythm, Normal S1, Normal S2, No murmurs Abdomen: Bowel Sounds Present, Soft, tenderness over the epigastric and suprapubic regions, Non-Distended, No Hepato-splenomegaly Extremities: No edema Skin: No rashes, No breakdown Musculoskeletal: No Tenderness to Palpation of Joints or Extremities Lymphatic: No Cervical, Supraclavicular, or Inguinal Adenopathy Neurological: Cranial nerves II-XII grossly intact, Neuro grossly intact Psych/Mental Status: Normal Affect, Appropriate Vitals/I&O's: Vital Signs Temp Pulse Resp BP Pulse Ox 97.9 F 95 24 H 91/79 95 08/11/19 05:20 08/11/19 05:25 08/11/19 05:20 08/11/19 05:20 08/11/19 05:20 Oxygen Flow Rate (L/min) 2 Oxygen Delivery Method Room Air Weight: 126.3 kg Body Mass Index (BMI) 42.3 Intake and Output for Last 24 Hours 08/09/19 08/10/19 08/11/19 23:59 23:59 23:59 Intake Total 2523.33 / 2523.33 50 / 350 700 / 700 Balance 2523.33 / 2523.33 50 / 350 700 / 700 Microbiology Past 72 Hours 08/08/19 14:00 Blood Culture (Wb) - Anticubital Left Blood Culture - Preliminary No growth in 48 hours. 08/08/19 14:09 Blood Culture (Wb) - Right Hand Blood Culture - Preliminary No growth in 48 hours. 08/08/19 15:50 Urine, Clean Catch Urine Culture - Preliminary Presumptive E. coli 08/08/19 19:55 Mucosa - Nasopharyngeal Respiratory Panel (PCR) - Final Current Medications Acetaminophen (Tylenol) 650 mg PO Q6H PRN PRN PRN Reason: fever/pain Last Admin: 08/10/19 18:47 Dose: 650 mg Documented by: Al Hydroxide/Mg Hydroxide (Mylanta Ii) 30 ml PO Q6H PRN PRN PRN Reason: DYSPEPSIA Apixaban (Eliquis) 5 mg PO BID [facility] Last Admin: 08/10/19 21:39 Dose: 5 mg Documented by: Ascorbic Acid (Vitamin C) 1,500 mg PO DAILY [facility] Last Admin: 08/10/19 10:48 Dose: 1,500 mg Documented by: Atorvastatin Calcium (Lipitor) 20 mg PO QHS [facility] Last Admin: 08/10/19 21:39 Dose: 20 mg Documented by: Clopidogrel Bisulfate (Plavix) 75 mg PO DAILY [facility] Last Admin: 08/10/19 10:50 Dose: 75 mg Documented by: Dextrose (D50w Syringe) 0 gm IV X1 PRN; Protocol PRN Reason: Hypoglycemia Diltiazem HCl (Cardizem Cd) 240 mg PO DAILY [facility] Last Admin: 08/10/19 10:49 Dose: 240 mg Documented by: Ergocalciferol (Vitamin D) 50,000 unit PO [facility] Fluoxetine HCl (Prozac) 40 mg PO DAILY [facility] Last Admin: 08/10/19 10:50 Dose: 40 mg Documented by: Furosemide (Lasix) 40 mg PO BIDLX [facility] Last Admin: 08/10/19 17:04 Dose: 40 mg Documented by: Glucagon () 1 mg IM .X1 PRN PRN Reason: Hypoglycemia Ceftriaxone Sodium (Rocephin) 1 gm in 50 mls @ 100 mls/hr IV Q24 [facility] Last Infusion: 08/10/19 11:21 Dose: Infused Documented by: Lamotrigine (Lamictal) 150 mg PO DAILY [facility] Last Admin: 08/10/19 10:49 Dose: 150 mg Documented by: Lorazepam (Ativan) 1 mg PO Q12H PRN PRN Reason: ANXIETY Metoprolol Tartrate (Lopressor (Beta Danielle)) 75 mg PO BID [facility] Last Admin: 08/10/19 21:41 Dose: Not Given Documented by: Ondansetron HCl (Zofran) 4 mg IV Q8H PRN PRN PRN Reason: NAUSEA/VOMITING Pantoprazole Sodium (Protonix) 40 mg PO DAILY [facility] Last Admin: 08/10/19 10:47 Dose: 40 mg Documented by: Tolterodine Tartrate (Detrol La) 4 mg PO DAILY [facility] Last Admin: 08/10/19 10:49 Dose: 4 mg Documented by: Trazodone HCl (Desyrel) 100 mg PO QHS [facility] Last Admin: 08/10/19 21:39 Dose: 100 mg Documented by: Medical Necessity - Tobacco Use Smoking Status: Former smoker Tobacco Use: Non-smoker Assessment/Plan All Active Problems (Last Reviewed 05/31/19 @ 10:11 by Dayton Cohen MD) Sepsis (Acute) UTI (urinary tract infection) (Acute) Acute exacerbation of chronic obstructive pulmonary disease (COPD) (Resolved) Acute fall (Resolved) Allergic reaction due to correct medicinal substance properly administered (Resolved) Atrial fibrillation with RVR (Resolved) CAP (community acquired pneumonia) (Resolved) Cellulitis of lower leg (Resolved) History of MRSA infection (Resolved) Hypokalemia (Resolved) Influenza B (Resolved) Laceration of head (Resolved) Metabolic alkalosis (Resolved) Non-healing wound of lower extremity (Resolved) Parainfluenza virus bronchopneumonia (Resolved) Pneumonia (Resolved) Sinusitis (Resolved) Syncope and collapse (Resolved) 63 year old F with multiple comorbidities who comes in with fever and lower abdominal discomfort as well as dysuria, frequency ongoing for 5 days. 1. Orthostatic hypotension is secondary to poor p.o. intake, medication side effect Lasix, Cardizem held, metoprolol continued, Normal saline 500 mils bolus, IV fluids 100 mls/hr for 2 L continue to monitor vitals 2. Sepsis secondary to E. Coli UTI, slowly improving Continue on ceftriaxone, will complete antibiotics after today 3. Hypokalemia, K 3.2, replaced 4. A. fib with RVR, mild, likely secondary to dehydration, Cardizem held on account of hypotension, will continue metoprolol and apixaban Continue to monitor 5. Dyslipidemia, on statin 6. Anxiety/depression, on Prozac, trazodone 7. DVT prophylaxis-apixaban 8. Disposition: pending precert to [facility] Code Visit Inpatient E&M: 45806 Subs Hosp L2
[2019-08-11] MEDS: Acetaminophen 325 MG Tablet 650 MG PO ×2 (08:28→21:22)
[2019-08-11 10:08] LABS: Absolute Neutrophil Count 6.1 X10^3/uL (2.0-7.7); Basophil# 0.03 X10^3/uL; Basophil% 0.4 % (0-1); Eosinophil# 0.15 X10^3/uL; Hematocrit 36.5 % (37-47); Hemoglobin 11.5 g/dL (12.0-15.0); Lymphocyte % 9.2 % (19-41); Mean Corp Hgb Conc 31.5 g/dL (32-36); Mean Corpuscular Hgb 28.2 pg (27.0-32.0); Mean Corpuscular Volume 89.5 fL (81-99); Mean Platelet Vol. 11.1 fl (6.2-12.0); Monocyte# 0.51 X10^3/uL; Monocyte% 6.7 % (0-10); NRBC Flagged by Analyzer 0 % (0-5); Neutrophil # 6.14 X10^3/uL (2.7-7.7); Neutrophil % 80.8 % (47-70); Platelet Count 219 K/mm3 (150-450); RBC Distribution Width CV 14.8 % (11.6-14.6); RBC Distribution Width SD 48.8 fl (35.1-43.9); Red Blood Count 4.08 M/mm3 (4.2-5.4); White Blood Count 7.6 K/mm3 (4.4-11.0)
[2019-08-11 10:35] LABS: Anion Gap 3 (5-15); BUN 15 mg/dL (7-18); BUN/Creat Ratio 19.6 RATIO (10-20); Calcium,Total 8.3 mg/dL (8.5-10.1); Chloride 104 mmol/L (98-107); Creatinine, Serum 0.77 mg/dL (0.55-1.02); EST Glomerular Filtration Rate 80 mL/min (>60); Est Glom Filt Rate - Afr Amer 97 mL/min (>60); Estimated Creatinine Clearance 74.46 ml/min; Glucose 139 mg/dL (74-106); Potassium 3.2 mmol/L (3.5-5.1); Sodium Level 138 mmol/L (136-145)
[2019-08-11] MEDS: Tolterodine Tartrate 4 MG CAP.SA PO (11:21)
[2019-08-11] MEDS: Clopidogrel Bisulfate 75 MG Tablet PO (11:22)
[2019-08-11] MEDS: lamoTRIgine 150 MG Tablet PO (11:22)
[2019-08-11] MEDS: APIXABAN 5 MG TABLET PO ×2 (11:22→21:17)
[2019-08-11] MEDS: FLUoxetine 20 MG Capsule 40 MG PO (11:23)
[2019-08-11] MEDS: Pantoprazole Sodium 40 MG Tablet PO (11:23)
[2019-08-11] MEDS: Ascorbic Acid 500 MG Tablet 1500 MG PO (11:23)
[2019-08-11] MEDS: Ceftriaxone 1 GM/50 ML BAG IV (11:24)
[2019-08-11] MEDS: Metoprolol Tartrate 50 MG Tablet PO ×2 (13:19→21:17)
--- NOTE | 2019-08-11 13:56 | NURSING ---
1110am Alexandrea Sylvester RN reports she will clarify with Physician if Lopressor should be held due to patients positive orthostatic BP/low BP this am.
--- NOTE | 2019-08-11 14:42 | NURSING ---
pharmacy contacted asked to retime saline, there's a bad in the pt room
--- NOTE | 2019-08-11 14:49 | CASEMGMT ---
Social Work Note STEFANIE faxed updated clinicals to [facility]. STEFANIE received call from Tricia at [facility] stating pre-cert has been obtained and pt is able to discharge today. STEFANIE updated physician. Physician states pt is not medically cleared for discharge today. SW updated admissions at [facility] on no discharge today. SW updated pt on approval to go to [facility] but that pt is not medically cleared for discharge today. Pt states understanding. Plan: Likely discharge to [facility] tomorrow Ladonna Castro PRESIDENT EDUCATIONAL INSTITUTION, TEAMCENTER CONSULTANT
[2019-08-11] MEDS: 0.9% Normal Saline 1,000 ML 100 ML IV (15:34)
[2019-08-11] MEDS: traZODone 100 MG Tablet PO (21:17)
[2019-08-11] MEDS: Atorvastatin Calcium 20 MG Tablet PO (21:17)
[2019-08-12 03:00] VITALS: BP 109/63; PULSE 85; RESP 18; TEMP 36.4; O2SAT 93
[2019-08-12 05:06] VITALS: PULSE 82
[2019-08-12 07:19] LABS: Absolute Lymphocyte Count 1.14 X10^3/uL (0.83-4.51); Absolute Neutrophil Count 4.3 X10^3/uL (2.0-7.7); Basophil# 0.03 X10^3/uL; Basophil% 0.5 % (0-1); Eosinophil# 0.26 X10^3/uL; Eosinophils% 4.1 % (0-5); Hematocrit 36.9 % (37-47); Hemoglobin 11.4 g/dL (12.0-15.0); Lymphocyte # 1.14 X10^3/ul (4.0); Mean Corp Hgb Conc 30.9 g/dL (32-36); Mean Corpuscular Hgb 27.8 pg (27.0-32.0); Mean Platelet Vol. 11.2 fl (6.2-12.0); Monocyte# 0.53 X10^3/uL; Monocyte% 8.4 % (0-10); NRBC Flagged by Analyzer 0 % (0-5); Neutrophil # 4.31 X10^3/uL (2.7-7.7); Neutrophil % 67.9 % (47-70); Platelet Count 236 K/mm3 (150-450); RBC Distribution Width CV 14.8 % (11.6-14.6); RBC Distribution Width SD 48.9 fl (35.1-43.9); White Blood Count 6.3 K/mm3 (4.4-11.0)
[2019-08-12 07:40] LABS: Anion Gap 2 (5-15); BUN 14 mg/dL (7-18); BUN/Creat Ratio 19.9 RATIO (10-20); Calcium,Total 8.7 mg/dL (8.5-10.1); Chloride 110 mmol/L (98-107); EST Glomerular Filtration Rate 89 mL/min (>60); Est Glom Filt Rate - Afr Amer 107 mL/min (>60); Glucose 91 mg/dL (74-106); Potassium 3.7 mmol/L (3.5-5.1); Sodium Level 144 mmol/L (136-145)
[2019-08-12] MEDS: Tolterodine Tartrate 4 MG CAP.SA PO (09:27)
[2019-08-12] MEDS: APIXABAN 5 MG TABLET PO (09:28)
[2019-08-12 09:29] VITALS: BP 115/80; PULSE 91
[2019-08-12] MEDS: Metoprolol Tartrate 50 MG Tablet PO (09:29)
[2019-08-12] MEDS: lamoTRIgine 150 MG Tablet PO (09:29)
[2019-08-12] MEDS: Pantoprazole Sodium 40 MG Tablet PO (09:30)
[2019-08-12] MEDS: FLUoxetine 20 MG Capsule 40 MG PO (09:30)
[2019-08-12] MEDS: Clopidogrel Bisulfate 75 MG Tablet PO (09:30)
[2019-08-12] MEDS: Ascorbic Acid 500 MG Tablet 1500 MG PO (09:31)
[2019-08-12] MEDS: Ceftriaxone 1 GM/50 ML BAG IV (09:35)
[2019-08-12] MEDS: 0.9% NaCl Peripheral Flush Adult/Peds IV (09:37)
--- NOTE | 2019-08-12 09:39 | PCM.TXEXTCAR ---
- Diet 08/08/19 21:40 Diet: Cardiac: Calorie-Controlled Is pt able to select menu?: Yes How many daily calories?: 1800 calorie - Routine Orders/Code Status O2 Frequency: PRN Keep PO Greater than or Equal to (%): 94 Routine Lab Work: CBC - within 3 days, BMP - within 3 days - Therapies Weight Bearing: Weight bearing as tolerated Physical Therapy: Eval and Treat Occupational Therapy: Eval and Treat - Problem/Diagnosis (1) Sepsis Status: Acute Current Visit: Yes (2) UTI (urinary tract infection) Status: Acute Current Visit: Yes (3) DDD (degenerative disc disease), lumbar Status: Chronic Current Visit: Yes (4) Hyperlipidemia Status: Chronic Current Visit: Yes (5) Essential (primary) hypertension Status: Chronic Current Visit: Yes (6) Paroxysmal atrial fibrillation Status: Chronic Current Visit: Yes - Allergies/Procedures Done in Hospital Allergies/Adverse Reactions: Allergies morphine Allergy (Verified 08/08/19 13:44) Itching nifedipine [From Procardia] Adverse Reaction (Verified 08/08/19 13:44) Causes elevated BP Procedures: None - Type of Care/Length of Stay Estimated LOS: Convalescent Care Less Than 30 days Type of Care Needed: Skilled Rehab Potential: Good Prognosis: Good - Additional Orders/Day of Discharge Additional Orders: Patient's Lasix 40mg BID was held in the hospital on account of relative hypotension. Continue daily weights. Consider resuming if she gains fluid weight or start to look edematous. Her cardizem dose was decreased from 240mg to 120mg daiy. Consider resuming if BP and HR remains elevated. Day of Discharge: 08/12/19 - Dietary and Speech Recommendations Dietitian Recommendations/Changes: Recommend continue 1800 calorie controlled, cardiac diet. - Follow Up Care Primary Care Physician: Osiel Grimaldo Chi, MD [Primary Care Provider] - Please follow up with your Primary Care Physician in: within 1-2 weeks of discharge
--- NOTE | 2019-08-12 09:43 | DS.PCM_ITS ---
Discharge Date and Diagnosis - Problem List Patient Problems: Active and Suspected Problems (Last Reviewed 05/31/19 @ 10:11 by Dayton Cohen MD) Sepsis (Acute) UTI (urinary tract infection) (Acute) Date of Admission: 08/08/19 Date of Discharge: 08/12/19 - Primary Discharge Diagnosis Active and Suspected Problems (Last Reviewed 05/31/19 @ 10:11 by Dayton Cohen MD) Orthostatic hypotension Sepsis secondary to UTI Hypokalemia A. fib with RVR - Secondary Discharge Diagnosis Chronic Problems (Last Reviewed 05/31/19 @ 10:11 by Dayton Cohen MD) Persistent atrial fibrillation (Chronic) DDD (degenerative disc disease), lumbar (Chronic) Segmental and somatic dysfunction of thoracic region (Chronic) Segmental and somatic dysfunction of pelvic region (Chronic) Segmental and somatic dysfunction of lumbar region (Chronic) Nonischemic cardiomyopathy (Chronic) Hyperlipidemia (Chronic) Essential (primary) hypertension (Chronic) Paroxysmal atrial fibrillation (Chronic) Atrial fibrillation and flutter (Chronic) Hospital Course and Treatment Imaging Results: Clinical Impression(s) from Imaging Studies Chest X-Ray 08/08/19 13:58 IMPRESSION: Mild increased markings at the left lung base suggestive of developing atelectasis. Electronically Signed: Dwight Ledbetter, at 15:27 EDT , Service support , Abdomen/Pelvis CT 08/08/19 16:37 IMPRESSION: No acute intra-abdominal process. Electronically Signed: Christy Pinto MD at 17:10 EDT Tel , Service support , None Operations: None Procedures: None Summary of Care Provided: 63 year old female with multiple comorbidities who comes in with fever and lower abdominal discomfort as well as dysuria, frequency ongoing for 5 days. She was admitted and managed as sepsis secondary to UTI. She was started on IV fluids and IV ceftriaxone. The next day after her admission, patient was found to have A. fib with RVR. Her metoprolol was increased, and she received IV fluid hydration. Subsequently the next day, she was found to have orthostatic hypotension. Her Cardizem was held and metoprolol decreased to 50 mg p.o. twice daily from 75 mg bid. She received fluid boluses and was maintained on IV fluids with resolution of her orthostasis. Urine cultures came back positive for E. coli,which was pansensitive. She completed 5 days of IV ceftriaxone in the hospital. Patient was found to be hypokalemic in the hospital and her potassium was replaced. She was seen and skilled for subacute care in the custodial. Her Lasix was held on the day of discharge and her Cardizem was decreased to 120 mg p.o. daily. She was continued on metoprolol 50 mg p.o. twice daily. Patient Problems: Active and Suspected Problems (Last Reviewed 05/31/19 @ 10:11 by Dayton Cohen MD) Sepsis (Acute) UTI (urinary tract infection) (Acute) Subjective: Patient was seen and examined. She denied any new complaints. She feels much improved. Objective: Physical Exam General: Alert, Oriented x3, Cooperative, No apparent distress, morbidly obese HEENT: Atraumatic, PERRLA, EOMI, Normocephalic Oral: Moist Mucosa Neck: Supple Lungs: Diminished - at both lung bases Cardiovascular: Regular rate, Regular Rhythm, Normal S1, Normal S2, No murmurs Abdomen: Bowel Sounds Present, Soft, tenderness over the epigastric and suprapubic regions, Non-Distended, No Hepato-splenomegaly Extremities: No edema Skin: No rashes, No breakdown Musculoskeletal: No Tenderness to Palpation of Joints or Extremities Lymphatic: No Cervical, Supraclavicular, or Inguinal Adenopathy Neurological: Cranial nerves II-XII grossly intact, Neuro grossly intact Psych/Mental Status: Normal Affect, Appropriate - Physical Exam Vital Signs Temp Pulse Resp BP Pulse Ox 97.6 F L 82 18 109/63 93 08/12/19 03:00 08/12/19 05:06 08/12/19 03:00 08/12/19 03:00 08/12/19 03:00 Oxygen Flow Rate (L/min) 2 Oxygen Delivery Method Room Air Weight: 126.3 kg Body Mass Index (BMI) 42.3 Intake and Output for Last 24 Hours 08/10/19 08/11/19 08/12/19 23:59 23:59 23:59 Intake Total 50 / 350 [id number] Balance 50 / 350 2059 Microbiology Past 72 Hours 08/08/19 15:50 Urine Culture - Final Urine, Clean Catch Presumptive E. coli 08/08/19 14:00 Blood Culture - Preliminary Blood Culture (Wb) - Anticubital Left No growth in 48 hours. 08/08/19 14:09 Blood Culture - Preliminary Blood Culture (Wb) - Right Hand No growth in 48 hours. 08/08/19 19:55 Respiratory Panel (PCR) - Final Mucosa - Nasopharyngeal Laboratory Tests Past 24 Hrs 08/11/19 08/11/19 08/12/19 09:45 09:45 06:37 WBC 7.6 6.3 RBC 4.08 L 4.10 L Hgb 11.5 L 11.4 L Hct 36.5 L 36.9 L MCV 89.5 90.0 MCH 28.2 27.8 MCHC 31.5 L 30.9 L RDW Std Deviation 48.8 H 48.9 H RDW Coeff of Eric 14.8 H 14.8 H Plt Count 219 236 MPV 11.1 11.2 Immature Gran % (Auto) 0.900 1.100 H Neut % (Auto) 80.8 H 67.9 Lymph % (Auto) 9.2 L 18.0 L Wilbarger % (Auto) 6.7 8.4 Eos % (Auto) 2.0 4.1 Baso % (Auto) 0.4 0.5 Absolute Neuts (auto) 6.1 4.3 Absolute Lymphs (auto) 0.70 L 1.14 Nucleated RBC % 0 0 Sodium 138 Potassium 3.2 L Chloride 104 Carbon Dioxide 31.0 Anion Gap 3 L BUN 15 Creatinine 0.77 Estim Creat Clear Calc 74.46 Est GFR (MDRD) Af Amer 97 Est GFR (MDRD) Non-Af 80 BUN/Creatinine Ratio 19.6 Glucose 139 H Calcium 8.3 L 08/12/19 06:37 WBC RBC Hgb Hct MCV MCH MCHC RDW Std Deviation RDW Coeff of Eric Plt Count MPV Immature Gran % (Auto) Neut % (Auto) Lymph % (Auto) Wilbarger % (Auto) Eos % (Auto) Baso % (Auto) Absolute Neuts (auto) Absolute Lymphs (auto) Nucleated RBC % Sodium 144 Potassium 3.7 Chloride 110 H Carbon Dioxide 32.0 Anion Gap 2 L BUN 14 Creatinine 0.70 Estim Creat Clear Calc 81.90 Est GFR (MDRD) Af Amer 107 Est GFR (MDRD) Non-Af 89 BUN/Creatinine Ratio 19.9 Glucose 91 Calcium 8.7 Discharge Diet: Low fat/ Low Cholesterol, 2000 mg Sodium Diet Discharge Activity: Return to Normal Activity Home Medications: Medications to take at Discharge Furosemide 40 mg PO BID 02/05/16 fluoxetine 40 mg capsule 40 mg PO DAILY 12/29/17 cholecalciferol (vitamin D3) 50,000 unit capsule 50,000 unit PO LUDWIG 30 Days #4 cap 09/07/18 Ascorbic Acid [Vitamin C] 1,500 mg PO DAILY 10/27/18 Potassium Chloride [Klor-Con M20] 40 meq PO BID 10/27/18 Simvastatin 40 mg PO QHS 10/27/18 albuterol sulfate HFA 90 mcg/actuation aerosol inhaler 1 puff INHALATION Q2H PRN 30 Days #36 g 04/13/19 clopidogrel 75 mg tablet 75 mg PO DAILY 04/13/19 lamotrigine 150 mg tablet 150 mg PO DAILY 04/13/19 Apixaban [Eliquis] 5 mg PO BID 07/19/19 Fesoterodine Fumarate [Toviaz] 8 mg PO DAILY 07/19/19 Pantoprazole Sodium [Protonix] 40 mg PO DAILY 08/08/19 Acetaminophen [Tylenol Tablet] 650 mg PO Q6H PRN PRN tab 08/12/19 Diltiazem CD [Cardizem CD] 120 mg PO DAILY cap 08/12/19 Lorazepam [Ativan] 1 mg PO Q12H PRN PRN 5 Days #10 tab 08/12/19 Metoprolol Tartrate [Lopressor (beta avila)] 50 mg PO BID tab 08/12/19 Senna/Docusate Sodium [Senokot-S] 2 tab PO BID PRN tab 08/12/19 Following Prescrptions Were Given to Patient: Lorazepam [Ativan] 1 mg PO Q12H PRN PRN 5 Days #10 tab PRN Reason: Anxiety Prescription Printed Primary Care Physician: Osiel Grimaldo Chi, MD [Primary Care Provider] - Please follow up with your Primary Care Physician in: within 1-2 weeks of discharge Disposition: Snf facility Minutes spent on discharge:: 40 Patient Condition:: Stable Medical Necessity - Tobacco Use Smoking Status: Former smoker Tobacco Use: Non-smoker Meaningful Use Info Meaningful Use Diagnoses (Choose all that apply): None applicable Code Visit Inpatient E&M: 99437 Disch Hosp
[2019-08-12 10:42] VITALS: BP 115/80; PULSE 91; RESP 16; TEMP 36.3; O2SAT 99
[2019-08-12] MEDS: Magnesium Hydroxide 30 ML UDC PO (11:22)
[2019-08-12] MEDS: dilTIAZem CD 120 MG Capsule PO (11:22)
[2019-08-12 11:23] VITALS: BP 112/72
--- NOTE | 2019-08-12 12:51 | CASEMGMT ---
Social Work Note Pt is discharging to [facility] today. SW in to speak with pt and RN present in room. RN states pt could be transported via wheelchair van. Pt agreeable to wheelchair van. SW informed pt that wheelchair van could be arranged but pt will get a bill as her insurance doesn't pay for wheelchair van. Pt states I Can't have any bills. Pt states that her granddaughter gets off work around 4:00pm and will be able to transport pt. Vi SQUIRES faxed discharge paperwork to [facility] including transfer to extended care facility, signed medication list and any scripts. Vi placed original in SNF folder and copy on pt's chart. Vi SQUIRES completed [facility] in [place]. Vi SQUIRES placed a call to [facility] to update on discharge and transportation time. Plan: Discharge to [facility] today skilled with pt's family transporting around 4:00pm Ladonna ESTRELLA, INJECTION MOLD TECHNICIAN
[2019-08-12 14:18] VITALS: BP 103/69; PULSE 83; RESP 16; TEMP 36.6; O2SAT 99
--- NOTE | 2019-08-12 15:26 | NURSING ---
Report called to [facility] at this time.
== END 2019-08-12 16:48 | disposition skilled nursing facility (03) | DRG 463 ==
LOC: ED 14:54 → MS3 17:38
PROVIDERS: Admitting Provider Internal Medicine; Emergency Provider Emergency Medicine; Family Provider Family Medicine Geriatric Medicine; PCP Family Medicine Geriatric Medicine; Referring Provider Internal Medicine; Visit Provider Internal Medicine
DX: N39.0 Urinary tract infection, site not specified (principal); Z68.41 Body mass index [BMI] 40.0-44.9, adult; I42.8 Other cardiomyopathies; E78.5 Hyperlipidemia, unspecified; B96.20 Unspecified Escherichia coli [E. coli] as the cause of diseases classified elsewhere; E87.6 Hypokalemia; I10 Essential (primary) hypertension; I95.1 Orthostatic hypotension; E66.01 Morbid (severe) obesity due to excess calories; I48.91 Unspecified atrial fibrillation
CPT/HCPCS: 36415; 71045; 74176; 80048; 80053; 81001; 82962; 83605; 85025; 85610; 85730; 87040; 87086; 87088; 87186; 87633; 93005; 97116; 97162; 97166; 97530; 97535; 99285; J7030; J7040; A4216; J2405

== ENCOUNTER → 2019-10-03 13:32 | Outpatient (CLI) | payer MEDICARE, MEDICAID, SELFPAY ==
[2019-08-08 18:29] VITALS: BMI 42.3
[2019-10-03 17:48] LABS: ALB/GLOB Ratio 1.1 RATIO (0.9-2.4); AST(SGOT) 11 U/L (15-37); Alanine Aminotransfer ALT/SGPT 15 U/L (13-56); Albumin, Serum 3.4 g/dL (3.2-5.0); Alkaline Phosphatase 102 U/L (45-117); Anion Gap 5 (5-15); BUN 21 mg/dL (7-18); BUN/Creat Ratio 22.9 RATIO (10-20); Calcium,Total 8.8 mg/dL (8.5-10.1); Chloride 109 mmol/L (98-107); Creatinine, Serum 0.92 mg/dL (0.55-1.02); EST Glomerular Filtration Rate 65 mL/min (>60); Est Glom Filt Rate - Afr Amer 79 mL/min (>60); Globulin 3.2 g/dL (2.2-4.2); Glucose 119 mg/dL (74-106); Potassium 4.2 mmol/L (3.5-5.1); Protein, Total 6.6 g/dL (6.4-8.2); Sodium Level 142 mmol/L (136-145); Thyroid Stim Hormone (TSH) 1.56 uIU/mL (0.358-3.74)
[2019-10-03 17:54] LABS: Vitamin D,25 Hydroxy 44.5 ng/mL (29.95-100.01)
[2019-10-03 17:57] LABS: Absolute Neutrophil Count 6.1 X10^3/uL (2.0-7.7); Basophil# 0.05 X10^3/uL; Basophil% 0.5 % (0-1); Eosinophil# 0.55 X10^3/uL; Hematocrit 41.2 % (37-47); Hemoglobin 12.5 g/dL (12.0-15.0); Lymphocyte % 19.7 % (19-41); Mean Corp Hgb Conc 30.3 g/dL (32-36); Mean Corpuscular Hgb 27.7 pg (27.0-32.0); Mean Corpuscular Volume 91.2 fL (81-99); Monocyte# 0.64 X10^3/uL; NRBC Flagged by Analyzer 0 % (0-5); Neutrophil # 6.05 X10^3/uL (2.7-7.7); Neutrophil % 66.1 % (47-70); Platelet Count 318 K/mm3 (150-450); RBC Distribution Width CV 14.9 % (11.6-14.6); RBC Distribution Width SD 49.8 fl (35.1-43.9); Red Blood Count 4.52 M/mm3 (4.2-5.4); White Blood Count 9.2 K/mm3 (4.4-11.0)
== END ==
PROVIDERS: Family Provider Family Medicine Geriatric Medicine; PCP Family Medicine Geriatric Medicine; Visit Provider Family Medicine Geriatric Medicine
DX: E11.9 Type 2 diabetes mellitus without complications (principal); E55.9 Vitamin D deficiency, unspecified; I10 Essential (primary) hypertension
CPT/HCPCS: 36415; 80053; 82306; 84443; 85025

== ENCOUNTER 2019-10-05 09:30 | Outpatient (RCR) | payer MEDICARE, MEDICAID, SELFPAY ==
[2019-08-08 18:29] VITALS: BMI 42.3
--- NOTE | 2019-09-22 18:02 | HP.PTEVAL_ITS ---
Patient's Visit Information RDUY MICHELE is a 64 year old F referred to Physical Therapy by Osiel Grimaldo MD with a diagnosis of Debility. Date of Evaluation: 09/22/19 Physical Therapist: Bhavesh Metcalf, PT, ATC - Visit Plan Frequency: 2-3x /Week Duration: 4-6 Weeks Plan: B LE strengthening, balance and proprio, bike, gait training, and HEP - Subjective Findings: Pt reports she had a UTI 6 weeks ago that lead her to become septic. Pt reports she was admitted to the hospital for 6 days and then to the assisted for 12 days, then had to leave secondary to insurance reasons. Pt reports she feels a lot better now, but still feels really weak. Pt reports she also runs out of energy quick, and cant stand or walk for a prolonged period of time. Pt reports she is supposed to use a walker for ambulation, but notes she forgot her's today. Pt denies tingling or numbness in her LE's at thsi time. Pt notes her goals are to be able to walk and stand for a longer period of time. Pt notes she has falled approximately 10 times in the past 5 years. Pt notes L knee, LB, and R shoulder all sore today. - Pain body pain Pain Intensity (Out of 10): 7 - Objective Neuro: B LE sensation is WNL to light touch. B patellar reflex= 2/3. MMT: B LE's are grossly 4-/5 throughout. ROM: B LE's are WFL. Gait: Pt was able to ambulate 180' with slow cadance until needing a rest break. Transfers: Pt must use B UE's to stand from sitting. Multiple attempts until sucessful. - Goals Goal 1:: Increase B LE strength x 1 grade to aid with stair negotiation Goal Time Frame: 4-6 Weeks Goal 2:: Pt will be able to ambulate greater than 300 feet to aid with community ambulation Goal Time Frame: 4-6 Weeks Goal 3:: I with HEP Goal Time Frame: 4-6 Weeks Goal Time Frame: 4-6 Weeks - Rehabilitation Potential Physical Therapy Diagnosis: Pt has LE weakness and intolerance for prolonged ambulation secondary to debility Rehabilitation Potential: Good - Anticipated Interventions Patient/Client Instruction: Educate patient on: Condition, Plan of Care For the Purpose of:: To improve self management Therapeutic Exercise to Include: Strength training, Endurance training, Balance training, Gait and locomotor training For the Purpose of:: To decrease pain, To increase ROM, To improve muscle performance and motor function Thank you for the opportunity to evaluate your patient. For Medicare and Medicare HMO plans, please review the plan of care and approve it. It will need to be FAXED BACK to us at [phone] for Medicare purposes. For Medicare only, by signing this I certify the plan of care. Please let me know if there are questions or concerns regarding this plan of care. Physician Signature: Date:
--- NOTE | 2020-01-25 12:58 | HP.PT.NRP ---
RUDY MICHELE was seen in my office for initial evaluation on 09/22/19. The following Plan of Care was established for this patient: Initial Frequency: 2-3x /Week Initial Duration: 4-6 Weeks Patient/Client Instruction: Educate patient on: Condition, Plan of Care For the Purpose of:: To improve self management Therapeutic Exercise to Include: Strength training, Endurance training, Balance training, Gait and locomotor training For the Purpose of:: To decrease pain, To increase ROM, To improve muscle performance and motor function This patient was last seen in our office . Pertinent comments regarding their Physical therapy will appear below: Pt was treated for 2 PT visits for debility through the date of 10/05/19. Pt did not attend any other scheduled visits and has not returned through todays date and is discontinued at this time At this point I will be discontinuing this patient from physical therapy. I would be happy to see this patient again in the future if found appropriate by the physician. Thank you! Bhavesh Metcalf, PT, ATC
== END 2019-10-05 19:00 | disposition home or self-care (01) ==
LOC: PT 09:30
PROVIDERS: Family Provider Family Medicine Geriatric Medicine; PCP Family Medicine Geriatric Medicine; Referring Provider Family Medicine Geriatric Medicine; Visit Provider Family Medicine Geriatric Medicine
DX: R53.83 Other fatigue (principal)
CPT/HCPCS: 97110; 97161

== ENCOUNTER → 2019-10-26 17:33 | Outpatient (CLI) | payer MEDICARE, MEDICAID, SELFPAY ==
[2019-08-08 18:29] VITALS: BMI 42.3
--- NOTE | 2019-10-26 17:50 | RAD_ITS ---
STUDY: X-RAY - LEFT SHOULDER REASON FOR EXAM: Female, 64 years old. Pain TECHNIQUE: 4 view(s) of the shoulder. COMPARISON: None. FINDINGS: Normal glenohumeral articulation. Mild degenerative changes at the acromioclavicular joint. Normal acromion. Normal humeral head and visualized proximal humerus. The soft tissue structures are unremarkable. Normal visualized pulmonary apex. RAD/Shoulder min 2 Views IMPRESSION: Mild degenerative changes of the shoulder. Electronically Signed: Anupam Dc DO at 23:59 EST Tel [phone], Service support ,
== END ==
PROVIDERS: Family Provider Family Medicine Geriatric Medicine; PCP Family Medicine Geriatric Medicine; Referring Provider Family Medicine Geriatric Medicine; Visit Provider Family Medicine Geriatric Medicine
DX: M25.512 Pain in left shoulder (principal)
CPT/HCPCS: 73030

== ENCOUNTER 2019-11-29 17:22 | Observation (INO) | payer MEDICARE, MEDICAID, SELFPAY ==
[2019-08-08 18:29] VITALS: BMI 42.3
[2019-11-29] VITALS (7 sets, daily range): BP systolic 132–156; BP diastolic 81–100; PULSE 84–104; RESP 16–18; TEMP 36.1–36.7; O2SAT 99–100; BMI 41.3; BMI 43.1
--- NOTE | 2019-11-29 17:52 | EKG12_ITS ---
Test Reason : CP Blood Pressure : / mmHG Vent. Rate : 096 BPM Atrial Rate : 096 BPM P-R Int : 000 ms QRS Dur : 084 ms QT Int : 360 ms P-R-T Axes : 000 001 019 degrees QTc Int : 454 ms Atrial fibrillation Increased R/S ratio in V1, consider early transition or posterior infarct Abnormal ECG Confirmed by ROSALINDA ADKINS ([id number]), content editor RICAHRD ALMEIDA ([id number]) on 12/01/2019 8:27:20 AM Referred By: RANDY Confirmed By:ROSALINDA ADKINS
--- NOTE | 2019-11-29 17:53 | ED.DCSUM_ITS ---
- ER Visit Summary Date of Service: 11/29/19 Chief Complaint: [Cough and chest discomfort] History of Present Illness: The patient is a 64 F [presents to the emergency department with complaint of a cough that she is had for about 2 weeks. Patient complains also of chest discomfort that start about 2 hours ago and radiates into her left arm at times and across her chest. Patient describes it as a tightness. She denies any fevers. Denies recent travel or surgery. Her last heart cath she thinks was about 4 5 years ago. He is never had a stent or open heart surgery. Patient does have history of A. fib which is chronic and she is on Eliquis chronically which she has been compliant with. Patient's had a history of diabetes, hypertension, high cholesterol. 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 Patient's cough is mostly nonproductive but occasionally will bring up some yellow sputum. Also complains of some swelling to her lower extremities. She is never had a history of CHF. Patient does have history of some COPD.] Physical Examination: [HEENT-PERRLA, EOMI. Cranial nerves II through XII grossly intact. TMs clear. Mucous membranes moist. No adenopathy. Cardiovascular-irregularly irregular. No murmurs auscultated. Lungs-clear to auscultation, chest wall stable without crepitus or subcu emphysema Abdomen-normoactive bowel sounds, soft, nontender, no rebound or rigidity, no peritoneal signs. Extremities-intact ?4, normal range of motion, normal pulses, atraumatic. Patient has +1 edema both lower extremities but symmetric.] Test Results: [EKG obtained on arrival showed atrial fibrillation with a ventricular rate of 96 bpm with no acute ST segment changes. CBC with differential count of 7.0, hemoglobin 11, hematocrit 37, placed 256. Chemistries unremarkable. Troponin was less than 0.015. BNP was 96. Chest x-ray showed nothing acute.] Emergency Department Course and Treatment: [Patient was given 1 sublingual nitro and she did not experience much relief with that she still has 2 more nitro to receive.] Treatment Plan: [Admit for further work-up and evaluation of chest pain] Disposition: [Admit] Impression: [Chest pain-rule out acute coronary syndrome URI] This note was generated with [employer]ation software. It may contain incorrect words, spelling, and punctuation that were not noted in review of the chart prior to signing ED Disposition - Plan for ED Patient: Referrals: Osiel Grimaldo Chi, MD [Primary Care Provider] -
--- NOTE | 2019-11-29 17:56 | RAD_ITS ---
STUDY: X-RAY CHEST REASON FOR EXAM: Female, 64 years old. COUGH TECHNIQUE: AP portable COMPARISON: August 08, 2019 FINDINGS: There is minor interstitial thickening at the lung bases.. There is no demonstrated pleural abnormality. Normal size heart. Normal mediastinum and guillaume. Normal visualized pulmonary arteries. Normal visualized aortic arch and descending thoracic aorta. Dorsal spine demonstrates mild degenerative change. Normal visualized ribs, clavicles, and shoulders. There is no demonstrated abnormality of the visualized soft tissue structures of the upper abdomen. RAD/Chest 1 View (Portable) IMPRESSION: No acute cardiopulmonary pathology Electronically Signed: Dakotah White MD at 18:24 EST , Service support ,
[2019-11-29 18:18] LABS: Absolute Lymphocyte Count 1.44 X10^3/uL (0.83-4.51); Absolute Neutrophil Count 4.6 X10^3/uL (2.0-7.7); Basophil# 0.03 X10^3/uL; Basophil% 0.4 % (0-1); Eosinophil# 0.32 X10^3/uL; Eosinophils% 4.6 % (0-5); Hematocrit 36.9 % (37-47); Hemoglobin 11.3 g/dL (12.0-15.0); Lymphocyte # 1.44 X10^3/ul (4.0); Lymphocyte % 20.5 % (19-41); Mean Corp Hgb Conc 30.6 g/dL (32-36); Mean Corpuscular Hgb 27.7 pg (27.0-32.0); Mean Corpuscular Volume 90.4 fL (81-99); Mean Platelet Vol. 10.1 fl (6.2-12.0); Monocyte# 0.56 X10^3/uL; NRBC Flagged by Analyzer 0 % (0-5); Neutrophil % 65.6 % (47-70); Platelet Count 256 K/mm3 (150-450); RBC Distribution Width CV 14.6 % (11.6-14.6); RBC Distribution Width SD 48.1 fl (35.1-43.9); Red Blood Count 4.08 M/mm3 (4.2-5.4)
[2019-11-29 18:33] LABS: Anion Gap 0 (5-15); BUN 24 mg/dL (7-18); BUN/Creat Ratio 28.6 RATIO (10-20); Calcium,Total 8.7 mg/dL (8.5-10.1); Chloride 110 mmol/L (98-107); Creatinine, Serum 0.84 mg/dL (0.55-1.02); EST Glomerular Filtration Rate 73 mL/min (>60); Est Glom Filt Rate - Afr Amer 88 mL/min (>60); Estimated Creatinine Clearance 67.35 ml/min; Glucose 94 mg/dL (74-106); Potassium 3.8 mmol/L (3.5-5.1); Sodium Level 144 mmol/L (136-145)
[2019-11-29 18:51] LABS: BNP,B-Type NATRIURETIC PEPTIDE 96.7 pg/mL (0-100)
[2019-11-29] MEDS: Nitroglycerin SL (ED/IMG/CATH) 0.4 MG TABLET SUBLINGUAL (19:13)
--- NOTE | 2019-11-29 19:36 | PCM.HP.STD ---
Problem List (1) Chest pain Status: Acute (2) Persistent atrial fibrillation Status: Chronic (3) DDD (degenerative disc disease), lumbar Status: Chronic (4) Segmental and somatic dysfunction of thoracic region Status: Chronic (5) Segmental and somatic dysfunction of pelvic region Status: Chronic (6) Segmental and somatic dysfunction of lumbar region Status: Chronic (7) Nonischemic cardiomyopathy Status: Chronic (8) Hyperlipidemia Status: Chronic Qualifiers: Hyperlipidemia type: unspecified Qualified Code(s): E78.5 - Hyperlipidemia, unspecified (9) Essential (primary) hypertension Status: Chronic (10) Paroxysmal atrial fibrillation Status: Chronic (11) Atrial fibrillation and flutter Status: Chronic History of Present Illness Date of Admission: 11/29/19 Chief Complaint: chest pain The patient is a 64 year old F with a significant history of chronic A. fib; hypertension; morbid obesity who presented to emergency department with left-sided chest pain that radiates to her left armpit region. Associated with her symptoms is mild nausea without vomiting. Her chest pain is episodic. She denies any aggravating or ameliorating factors. She was given nitroglycerin at the emergency department which she thinks did not help her much. Also she has anorexia; headache and episodic wheezes. At emergency department troponin was negative EKG showed chronic A. fib. Reportedly she had a cardiac cath 4 to 5 years ago. Patient reported the cardiac cath was unremarkable. Her mother had a heart attack when she was in her mid 40s Past Medical History Past Medical History (Chronic Problems): Chronic Problems (Last Reviewed 11/29/19 @ 20:54 by Bobby Alford MD) Persistent atrial fibrillation (Chronic) DDD (degenerative disc disease), lumbar (Chronic) Segmental and somatic dysfunction of thoracic region (Chronic) Segmental and somatic dysfunction of pelvic region (Chronic) Segmental and somatic dysfunction of lumbar region (Chronic) Nonischemic cardiomyopathy (Chronic) Hyperlipidemia (Chronic) Essential (primary) hypertension (Chronic) Paroxysmal atrial fibrillation (Chronic) Atrial fibrillation and flutter (Chronic) Medical History: Medical History (Last Reviewed 11/29/19 @ 21:19 by Bobby Alford MD) Persistent atrial fibrillation (Chronic) I48.1 DDD (degenerative disc disease), lumbar (Chronic) M51.36 Segmental and somatic dysfunction of thoracic region (Chronic) M99.02 Segmental and somatic dysfunction of pelvic region (Chronic) M99.05 Segmental and somatic dysfunction of lumbar region (Chronic) M99.03 Nonischemic cardiomyopathy (Chronic) I42.8 Hyperlipidemia (Chronic) E78.5 Essential (primary) hypertension (Chronic) I10 Paroxysmal atrial fibrillation (Chronic) I48.0 Atrial fibrillation and flutter (Chronic) I48.91, I48.92 Segmental and somatic dysfunction of lumbar region M99.03 Segmental and somatic dysfunction of pelvic region M99.05 Segmental and somatic dysfunction of thoracic region M99.02 Anxiety F41.9 Bipolar disorder F31.9 COPD (chronic obstructive pulmonary disease) J44.9 DDD (degenerative disc disease) Degeneration of lumbosacral intervertebral disc M51.37 Fracture of femur, distal, left, closed S72.402A GERD (gastroesophageal reflux disease) K21.9 Morbid obesity E66.01 Non-alcoholic cirrhosis K74.60 Obstructive sleep apnea G47.33 Scoliosis of lumbar spine M41.9 Tremor R25.1 Type 2 diabetes mellitus E11.9 Cerebral aneurysm without rupture I67.1 Left PICA Coiling Bilateral lower extremity edema (Inactive) R60.0 Blister (nonthermal), left knee, initial encounter (Inactive) S80.222A Chest pain (Inactive) R07.9 Dizziness and giddiness R42 Edema R60.9 Palpitations (Inactive) R00.2 Shortness of breath R06.02 Allergies morphine Allergy (Verified 08/08/19 13:44) Itching nifedipine [From Procardia] Adverse Reaction (Verified 08/08/19 13:44) Causes elevated BP Home Medications: Ambulatory Orders Medication Instructions Recorded Furosemide 40 mg PO BID 02/05/16 fluoxetine 40 mg capsule 40 mg PO DAILY 12/29/17 Ascorbic Acid [Vitamin C] 1,500 mg PO DAILY 10/27/18 Potassium Chloride [Klor-Con M20] 40 meq PO BID 10/27/18 Simvastatin 40 mg PO QHS 10/27/18 albuterol sulfate 90 mcg/actuation 1 puff INHALATION Q2H PRN 30 Days 04/13/19 aerosol inhaler #36 g clopidogrel 75 mg tablet 75 mg PO DAILY 04/13/19 lamotrigine 150 mg tablet 150 mg PO DAILY 04/13/19 Fesoterodine Fumarate [Toviaz] 8 mg PO DAILY 07/19/19 Pantoprazole Sodium [Protonix] 40 mg PO DAILY 08/08/19 Acetaminophen [Tylenol Tablet] 650 mg PO Q6H PRN PRN tab 08/12/19 Diltiazem CD [Cardizem CD] 120 mg PO DAILY cap 08/12/19 Lorazepam [Ativan] 1 mg PO Q12H PRN PRN 5 Days #10 tab 08/12/19 Metoprolol Tartrate [Lopressor 50 mg PO BID tab 08/12/19 (beta avila)] Senna/Docusate Sodium [Senokot-S] 2 tab PO BID PRN tab 08/12/19 Aspirin [Aspirin, Baby] 81 mg PO DAILY 11/29/19 apixaban 5 mg tablet 5 mg PO BID #180 tab 11/29/19 Surgical History: Surgical History (Last Reviewed 11/29/19 @ 21:19 by Bobby Alford MD) History of carpal tunnel release of both wrists Z98.890 History of hysterectomy Z90.710 vaginal fistula repair History of carpal tunnel release Z98.890 History of left heart catheterization Onset Date: 01/2014 Z98.890 01/2013, 01/2014 History of tonsillectomy and adenoidectomy Z98.890 History of total left knee replacement (TKR) Z96.652 History of total right knee replacement (TKR) Z96.651 Hx of cholecystectomy Z90.49 left PICA coiling Onset Date: 02/2019 Surgical History: - - T+A, Cholecystectomy, Hysterectomy, Vaginal fistula repairs, L TKR, Bunion/hammertoe RLE, Carpal tunnel BL. Psychiatric History: Anxiety, Depression [employer] History: No pertinent [employer] history Lives: Spouse/ Significant Other Smoking Status: Former smoker - *Family History Maternal Family History: Family History (Last Reviewed 11/29/19 @ 21:20 by Bobby Alford MD) Mother Breast cancer Diabetes Brother Cancer History Items: Diabetes Paternal Family History: Family History (Last Reviewed 11/29/19 @ 21:20 by Bobby Alford MD) Mother Breast cancer Diabetes Brother Cancer History Items: Cancer Review of Systems Constitutional: Reports: Anorexia. Denies: Chills, Fever, Weight Change HEENT: Reports: Head Aches. Denies: Sinus Congestion, Sinus Drainage Cardiovascular: Reports: Chest Pain. Denies: Palpitations Respiratory: Reports: Cough, Wheezing. Denies: Shortness of breath at rest, Sputum production Gastrointestinal: Reports: Nausea. Denies: Abdominal Pain, Vomiting Genitourinary: Denies: Dysuria Musculoskeletal: Denies: Joint Pain, Joint Tenderness Skin: Denies: Rash, Wounds Neurological: Denies: Numbness, Tingling, Focal weakness Psychiatric: Denies: Anxiety, Depression, Homicidal Ideations, Suicidal Ideations Hematologic/ Lymphatic: Denies: Easy Bruising, Easy Bleeding VTE Information - Inpt Only VTE Present on Admission: No VTE Mechan Device Prophylaxis: None VTE Pharm Prophylaxis ordered?: No Reason prophylaxis not ordered:: Treatment Not Indicated - Eliquis continued Patient Problems: Active and Suspected Problems (Last Reviewed 11/29/19 @ 20:54 by Bobby Alford MD) Chest pain (Acute) - Physical Exam Vitals/I&O's: Vital Signs Temp Pulse Resp BP Pulse Ox 96.9 F L 99 16 148/93 H 100 11/29/19 17:24 11/29/19 19:13 11/29/19 17:24 11/29/19 19:13 11/29/19 17:52 Oxygen Delivery Method Room Air Weight: 123.377 kg Body Mass Index (BMI) 41.3 General: Alert, Oriented x3, Cooperative HEENT: Atraumatic, PERRLA, EOMI, Normocephalic Neck: Supple, No JVD, Negative Carotid Bruits Lungs: Clear to auscultation, Normal air movement Cardiovascular: Normal S1, Normal S2, No murmurs, Irregular Rate Abdomen: Bowel Sounds Present, Soft, Non Tender Extremities: No edema, Capillary Refill Less than 3 Seconds Skin: No rashes, No breakdown Musculoskeletal: No Tenderness to Palpation of Joints or Extremities Neurological: Cranial nerves II-XII grossly intact Psych/Mental Status: Normal Affect, Appropriate Laboratory Results 11/29/19 18:00: WBC 7.0, RBC 4.08 L, Hgb 11.3 L, Hct 36.9 L, MCV 90.4, MCH 27.7, MCHC 30.6 L, RDW Std Deviation 48.1 H, RDW Coeff of Eric 14.6, Plt Count 256, MPV 10.1, Immature Gran % (Auto) 0.900, Neut % (Auto) 65.6, Lymph % (Auto) 20.5, [place] % (Auto) 8.0, Eos % (Auto) 4.6, Baso % (Auto) 0.4, Absolute Neuts (auto) 4.6, Absolute Lymphs (auto) 1.44, Nucleated RBC % 0 11/29/19 18:00: Sodium 144, Potassium 3.8, Chloride 110 H, Carbon Dioxide 34.0 H, Anion Gap 0 L, BUN 24 H, Creatinine 0.84, Estim Creat Clear Calc 67.35, Est GFR (MDRD) Af Amer 88, Est GFR (MDRD) Non-Af 73, BUN/Creatinine Ratio 28.6 H, Glucose 94, Calcium 8.7, Troponin I < 0.015 11/29/19 18:00: B-Natriuretic Peptide 96.7 Current Medications Nitroglycerin (Nitrostat) 0.4 mg SUBLINGUAL Q5M PRN PRN Reason: Chest pain Last Admin: 11/29/19 19:13 Dose: 0.4 mg Documented by: Assessment/Plan All Active Problems (Last Reviewed 11/29/19 @ 20:54 by Bobby Alford MD) Chest pain (Acute) Acute exacerbation of chronic obstructive pulmonary disease (COPD) (Resolved) Acute fall (Resolved) Allergic reaction due to correct medicinal substance properly administered (Resolved) Atrial fibrillation with RVR (Resolved) CAP (community acquired pneumonia) (Resolved) Cellulitis of lower leg (Resolved) History of MRSA infection (Resolved) Hypokalemia (Resolved) Influenza B (Resolved) Laceration of head (Resolved) Metabolic alkalosis (Resolved) Non-healing wound of lower extremity (Resolved) Parainfluenza virus bronchopneumonia (Resolved) Pneumonia (Resolved) Sinusitis (Resolved) Syncope and collapse (Resolved) The patient is a 64 year old F with a significant history of chronic A. fib; hypertension; morbid obesity who presented to emergency department with left-sided chest pain. Chest Pain Place on a monitored bed at PCU CXR independently reviewed confirms no acute cardiopulmonary process. EKG independently reviewed confirms for without any ST or T wave abnormalities. ASA 81 mg p.o. daily SL NTG 0.4 mg prn as needed for chest pain We will check lipid panel. Statin: Home statin continued Anti-P2Y12 Receptor antibody: Plavix continued Serial cardiac enzymes Stat EKG as needed for chest pain Chemical Stress test in the AM if the cardiac enzymes are negative Metoprolol continued hold in the morning of the stress test. HTN On presentation her blood pressure was not within goal Cardizem and metoprolol continued Lasix continued Trend blood pressure and adjust blood pressure medications. Chronic Afib Placed on telemetry Eliquis continued GERD Protonix continued copd Patient has wheezes but has not appeared to be in acute exacerbation. Scheduled DuoNeb. Albuterol. DVT prophylaxis ordered. Code Visit OBSV E&M: 77797 Initial observation care L3
--- NOTE | 2019-11-29 20:47 | EKG12_ITS ---
Test Reason : CP ADMISSION Blood Pressure : / mmHG Vent. Rate : 093 BPM Atrial Rate : 241 BPM P-R Int : 000 ms QRS Dur : 078 ms QT Int : 400 ms P-R-T Axes : 000 003 017 degrees QTc Int : 497 ms Atrial fibrillation Prolonged QT Abnormal ECG When compared with ECG of 29-NOV-2019 18:10, MANUAL COMPARISON REQUIRED, DATA IS UNCONFIRMED Confirmed by ZENON FERNANDEZ, MICHELE ([id number]), medical editor RICHARD ALMEIDA ([id number]) on 12/02/2019 2:41:51 PM Referred By: RENA Confirmed By:MARCELL YARBROUGH MD
[2019-11-29] MEDS: Ipratropium/Albuterol Sulfate 3 ML AMPUL.NEB INHALATION (21:36)
[2019-11-29] MEDS: LORazepam 1 MG Tablet PO (21:47)
[2019-11-29] MEDS: Atorvastatin Calcium 20 MG Tablet PO (21:47)
[2019-11-29] MEDS: Metoprolol Tartrate 50 MG Tablet PO (21:47)
[2019-11-29] MEDS: Furosemide 40 MG Tablet PO (21:47)
[2019-11-29] MEDS: APIXABAN 5 MG TABLET PO (21:47)
[2019-11-30] VITALS (10 sets, daily range): BP systolic 107–132; BP diastolic 72–94; PULSE 70–106; RESP 16–19; TEMP 36.6–36.7; O2SAT 95–98
[2019-11-30 05:57] LABS: Absolute Lymphocyte Count 1.49 X10^3/uL (0.83-4.51); Absolute Neutrophil Count 5.4 X10^3/uL (2.0-7.7); Basophil# 0.03 X10^3/uL; Basophil% 0.4 % (0-1); Eosinophil# 0.33 X10^3/uL; Eosinophils% 4.2 % (0-5); Hematocrit 36.8 % (37-47); Hemoglobin 11.5 g/dL (12.0-15.0); Lymphocyte # 1.49 X10^3/ul (4.0); Lymphocyte % 18.9 % (19-41); Mean Corp Hgb Conc 31.3 g/dL (32-36); Mean Corpuscular Hgb 28.3 pg (27.0-32.0); Mean Corpuscular Volume 90.4 fL (81-99); Monocyte# 0.54 X10^3/uL; Monocyte% 6.9 % (0-10); NRBC Flagged by Analyzer 0 % (0-5); Neutrophil # 5.44 X10^3/uL (2.7-7.7); Neutrophil % 69.1 % (47-70); Platelet Count 240 K/mm3 (150-450); RBC Distribution Width CV 14.6 % (11.6-14.6); RBC Distribution Width SD 48.1 fl (35.1-43.9); Red Blood Count 4.07 M/mm3 (4.2-5.4); White Blood Count 7.9 K/mm3 (4.4-11.0)
[2019-11-30] MEDS: Aspirin 81 MG TAB.CHEW PO (06:28)
[2019-11-30] MEDS: Clopidogrel Bisulfate 75 MG Tablet PO (06:28)
[2019-11-30 06:42] LABS: Anion Gap 2 (5-15); BUN 18 mg/dL (7-18); Calcium,Total 8.5 mg/dL (8.5-10.1); Chloride 109 mmol/L (98-107); Cholesterol 143 mg/dL (200); Creatinine, Serum 0.82 mg/dL (0.55-1.02); EST Glomerular Filtration Rate 74 mL/min (>60); Est Glom Filt Rate - Afr Amer 90 mL/min (>60); Glucose 89 mg/dL (74-106); High Density Lipoprotein 40 mg/dL; Sodium Level 142 mmol/L (136-145); Triglycerides 129 mg/dL; Very Low Density Lipoprotein 26 mg/dL (5-40)
[2019-11-30] MEDS: FLUoxetine 20 MG Capsule 40 MG PO (10:35)
[2019-11-30] MEDS: APIXABAN 5 MG TABLET PO (10:35)
[2019-11-30] MEDS: Pantoprazole Sodium 40 MG Tablet PO (10:35)
[2019-11-30] MEDS: Tolterodine Tartrate 4 MG CAP.SA PO (10:35)
[2019-11-30] MEDS: lamoTRIgine 150 MG Tablet PO (10:36)
[2019-11-30] MEDS: Metoprolol Tartrate 50 MG Tablet PO (10:36)
[2019-11-30] MEDS: Furosemide 40 MG Tablet PO (10:36)
[2019-11-30] MEDS: dilTIAZem CD 120 MG Capsule PO (10:36)
[2019-11-30] MEDS: Ascorbic Acid 500 MG Tablet 1500 MG PO (10:37)
--- NOTE | 2019-11-30 10:40 | CASEMGMT ---
LW/POA forms scanned into summary tab of [facility] is pt's healthcare POA. LANI Dumont
[2019-11-30] MEDS: Ipratropium/Albuterol Sulfate 3 ML AMPUL.NEB INHALATION (10:52)
--- NOTE | 2019-11-30 11:58 | DCINST_ITS ---
- Discharge Diagnoses Current Active Problems: Current Active and Chronic Problems (Last Updated 11/30/19 @ 07:14 by Fariha Cote MD) Chest pain (Acute) You will use the following diet at home:: Cardiac Discharge Activity: Return to Normal Activity Call your doctor if you observe: Shortness of breath, Dizziness, Fainting spells, Chest pain Allergies/Adverse Reactions: Allergies morphine Allergy (Verified 08/08/19 13:44) Itching nifedipine [From Procardia] Adverse Reaction (Verified 08/08/19 13:44) Causes elevated BP Medications to take at Discharge Furosemide 40 mg PO BID 02/05/16 fluoxetine 40 mg capsule 40 mg PO DAILY 12/29/17 Ascorbic Acid [Vitamin C] 1,500 mg PO DAILY 10/27/18 Potassium Chloride [Klor-Con M20] 40 meq PO BID 10/27/18 Simvastatin 40 mg PO QHS 10/27/18 albuterol sulfate 90 mcg/actuation aerosol inhaler 1 puff INHALATION Q2H PRN 30 Days #36 g 04/13/19 clopidogrel 75 mg tablet 75 mg PO DAILY 04/13/19 lamotrigine 150 mg tablet 150 mg PO DAILY 04/13/19 Fesoterodine Fumarate [Toviaz] 8 mg PO DAILY 07/19/19 Pantoprazole Sodium [Protonix] 40 mg PO DAILY 08/08/19 Acetaminophen [Tylenol Tablet] 650 mg PO Q6H PRN PRN tab 08/12/19 Diltiazem CD [Cardizem CD] 120 mg PO DAILY cap 08/12/19 Lorazepam [Ativan] 1 mg PO Q12H PRN PRN 5 Days #10 tab 08/12/19 Metoprolol Tartrate [Lopressor (beta avila)] 50 mg PO BID tab 08/12/19 Senna/Docusate Sodium [Senokot-S] 2 tab PO BID PRN tab 08/12/19 Aspirin [Aspirin, Baby] 81 mg PO DAILY 11/29/19 apixaban 5 mg tablet 5 mg PO BID #180 tab 11/29/19 Primary Care Physician: Osiel Grimaldo Chi, MD [Primary Care Provider] - Please follow up with your Primary Care Physician in: 1 Week Test Results: Test results from this visit will be discussed in further detail at your follow- up appointment, if applicable. Proposed Discharge Date: 11/30/19
--- NOTE | 2019-11-30 13:11 | DS.PCM_ITS ---
<Jolanta Swenson - Last Filed: 11/30/19 16:10> Discharge Date and Diagnosis Date of Admission: 11/29/19 Date of Discharge: 11/30/19 - Primary Discharge Diagnosis Active and Suspected Problems (Last Updated 11/30/19 @ 07:14 by Fariha Cote MD) 1. Chest pain, ACS ruled out 2. Hypertension 3. Chronic atrial fibrillation 4. GERD 5. Chronic COPD 6. Hyperlipidemia 7. Anxiety/Depression - Secondary Discharge Diagnosis Chronic Problems (Last Updated 11/30/19 @ 07:14 by Fariha Cote MD) Persistent atrial fibrillation (Chronic) DDD (degenerative disc disease), lumbar (Chronic) Segmental and somatic dysfunction of thoracic region (Chronic) Segmental and somatic dysfunction of pelvic region (Chronic) Segmental and somatic dysfunction of lumbar region (Chronic) Nonischemic cardiomyopathy (Chronic) Hyperlipidemia (Chronic) Essential (primary) hypertension (Chronic) Paroxysmal atrial fibrillation (Chronic) Atrial fibrillation and flutter (Chronic) Hospital Course and Treatment Imaging Results: Diagnostic Data Chest X-Ray 11/29/19 17:56 IMPRESSION: No acute cardiopulmonary pathology Electronically Signed: Dakotah White MD at 18:24 EST , Service support , Operations: None Procedures: Stress test Summary of Care Provided: The patient is a 64 year old F admitted 11/29/2019 due to chest pain. 1. Atypical chest pain, ACS ruled out-troponin negative. EKG without ST-T changes. Patient underwent stress test, report pending. If stress test is unremarkable we will plan on discharge home with follow-up with primary care physician in 1 week. 2. Hypertension-stable, continue metoprolol, Cardizem regimen. 3. Chronic atrial fibrillation-rate controlled. Continue Cardizem, Eliquis regimen. 4. GERD-continue PPI. 5. Chronic COPD-no exacerbation. Continue home inhaler regimen. 6. Hyperlipidemia-continue statin. 7. Anxiety/Depression-continue home medication regimen. 8. Morbid obesity- encouraged diet and lifestyle modifications. Patient seen and examined prior to discharge. Physical assessment as noted below. Patient is stable for discharge with follow up recommendations as noted above. This patient was seen by CAROLINE Mulligan under the supervision of Dr. Cote. - Physical Exam Vitals/I&O's: Vital Signs Temp Pulse Resp BP Pulse Ox 97.8 F 84 16 130/81 H 97 11/30/19 13:08 11/30/19 13:08 11/30/19 13:08 11/30/19 13:08 11/30/19 13:08 Oxygen Delivery Method Room Air Weight: 283 lb 11.759 oz Body Mass Index (BMI) 43.1 Intake and Output for Last 24 Hours 11/28/19 11/29/19 11/30/19 23:59 23:59 23:59 Intake Total 200 / 200 520 / 520 Output Total 150 / 150 Balance 50 / 50 520 / 520 General: Alert, Oriented x3, Cooperative HEENT: Atraumatic, PERRLA, EOMI, Normocephalic Neck: Supple, No JVD, Negative Carotid Bruits Lungs: Clear to auscultation, Normal air movement Cardiovascular: Regular rate, Regular Rhythm, Normal S1, Normal S2, No murmurs Abdomen: Bowel Sounds Present, Soft, Non Tender, Non-Distended Extremities: No clubbing, No cyanosis, Capillary Refill Less than 3 Seconds, Edema - +1 BLLE Skin: No rashes, No breakdown Musculoskeletal: No Tenderness to Palpation of Joints or Extremities Neurological: Cranial nerves II-XII grossly intact, Neuro grossly intact Psych/Mental Status: Normal Affect, Appropriate Laboratory Results 11/29/19 18:00: WBC 7.0, RBC 4.08 L, Hgb 11.3 L, Hct 36.9 L, MCV 90.4, MCH 27.7, MCHC 30.6 L, RDW Std Deviation 48.1 H, RDW Coeff of Eric 14.6, Plt Count 256, MPV 10.1, Immature Gran % (Auto) 0.900, Neut % (Auto) 65.6, Lymph % (Auto) 20.5, Deuel % (Auto) 8.0, Eos % (Auto) 4.6, Baso % (Auto) 0.4, Absolute Neuts (auto) 4.6, Absolute Lymphs (auto) 1.44, Nucleated RBC % 0 11/29/19 18:00: Sodium 144, Potassium 3.8, Chloride 110 H, Carbon Dioxide 34.0 H , Anion Gap 0 L, BUN 24 H, Creatinine 0.84, Estim Creat Clear Calc 67.35, Est GFR (MDRD) Af Amer 88, Est GFR (MDRD) Non-Af 73, BUN/Creatinine Ratio 28.6 H, Glucose 94, Calcium 8.7, Troponin I < 0.015 11/29/19 18:00: B-Natriuretic Peptide 96.7 11/29/19 21:12: Troponin I < 0.015 11/29/19 23:58: Troponin I < 0.015 11/30/19 05:35: WBC 7.9, RBC 4.07 L, Hgb 11.5 L, Hct 36.8 L, MCV 90.4, MCH 28.3, MCHC 31.3 L, RDW Std Deviation 48.1 H, RDW Coeff of Eric 14.6, Plt Count 240, MPV 10.0, Immature Gran % (Auto) 0.500, Neut % (Auto) 69.1, Lymph % (Auto) 18.9 L, Deuel % (Auto) 6.9, Eos % (Auto) 4.2, Baso % (Auto) 0.4, Absolute Neuts (auto) 5.4, Absolute Lymphs (auto) 1.49, Nucleated RBC % 0 11/30/19 05:35: Sodium 142, Potassium 4.0, Chloride 109 H, Carbon Dioxide 31.0, Anion Gap 2 L, BUN 18, Creatinine 0.82, Estim Creat Clear Calc 69.00, Est GFR (MDRD) Af Amer 90, Est GFR (MDRD) Non-Af 74, BUN/Creatinine Ratio 22.0 H, Glucose 89, Calcium 8.5, Triglycerides 129, Cholesterol 143, LDL Cholesterol 77, VLDL Cholesterol 26, HDL Cholesterol 40 Current Medications Acetaminophen (Tylenol) 650 mg PO Q6H PRN PRN PRN Reason: Pain Score 1-10/Temp > 100.7 F Albuterol Sulfate (Ventolin Aerosols) 2.5 mg INHALATION Q2H PRN PRN PRN Reason: sob/wheezing Albuterol/Ipratropium (Duoneb) 3 ml INHALATION Q4HWA.RT [facility] Last Admin: 11/30/19 10:52 Dose: 3 ml Documented by: Apixaban (Eliquis) 5 mg PO BID [facility] Last Admin: 11/30/19 10:35 Dose: 5 mg Documented by: Ascorbic Acid (Vitamin C) 1,500 mg PO DAILY [facility] Last Admin: 11/30/19 10:37 Dose: 1,500 mg Documented by: Aspirin (Aspirin, Baby) 81 mg PO DAILYCM [facility] Last Admin: 11/30/19 06:28 Dose: 81 mg Documented by: Atorvastatin Calcium (Lipitor) 20 mg PO QHS [facility] Last Admin: 11/29/19 21:47 Dose: 20 mg Documented by: Clopidogrel Bisulfate (Plavix) 75 mg PO DAILY [facility] Last Admin: 11/30/19 06:28 Dose: 75 mg Documented by: Diltiazem HCl (Cardizem Cd) 120 mg PO DAILY [facility] Last Admin: 11/30/19 10:36 Dose: 120 mg Documented by: Fluoxetine HCl (Prozac) 40 mg PO DAILY [facility] Last Admin: 11/30/19 10:35 Dose: 40 mg Documented by: Furosemide (Lasix) 40 mg PO BID [facility] Last Admin: 11/30/19 10:36 Dose: 40 mg Documented by: Glucagon () 1 mg IM .X1 PRN PRN Reason: Hypoglycemia Sodium Chloride () 250 mls @ 15 mls/hr IV .[id number] PRN PRN Reason: Saline Flush Sodium Chloride () 250 mls @ 15 mls/hr IV .[id number] PRN PRN Reason: Additional IVPB Infusion Dextrose (Dextrose 10%-Water) 250 mls @ 999 mls/hr IV .Q16M PRN; Protocol PRN Reason: HYPOGLYCEMIA Lamotrigine (Lamictal) 150 mg PO DAILY [facility] Last Admin: 11/30/19 10:36 Dose: 150 mg Documented by: Lorazepam (Ativan) 1 mg PO Q12H PRN PRN PRN Reason: ANXIETY Last Admin: 11/29/19 21:47 Dose: 1 mg Documented by: Metoprolol Tartrate (Lopressor (Beta Danielle)) 50 mg PO BID [facility] Last Admin: 11/30/19 10:36 Dose: 50 mg Documented by: Nitroglycerin (Nitrostat) 0.4 mg SUBLINGUAL Q5M PRN PRN Reason: CARDIAC/CHEST PAIN Ondansetron HCl (Zofran) 4 mg IV Q8H PRN PRN PRN Reason: NAUSEA/VOMITING Pantoprazole Sodium (Protonix) 40 mg PO DAILY [facility] Last Admin: 11/30/19 10:35 Dose: 40 mg Documented by: Potassium Chloride (K-Dur) 40 meq PO BID [facility] Last Admin: 11/30/19 10:36 Dose: 40 meq Documented by: Senna/Docusate Sodium (Senokot-S, Sena-Colace) 1 tablet PO BID PRN PRN PRN Reason: Constipation Sodium Chloride () 10 - 40 ml IV UD PRN PRN Reason: SALINE FLUSH Tolterodine Tartrate (Detrol La) 4 mg PO DAILY [facility] Last Admin: 11/30/19 10:35 Dose: 4 mg Documented by: Discharge Diet: Low fat/ Low Cholesterol Discharge Activity: Return to Normal Activity Call your doctor if you observe: Shortness of breath, Dizziness, Fainting spells, Chest pain Home Medications: Medications to take at Discharge Furosemide 40 mg PO BID 02/05/16 fluoxetine 40 mg capsule 40 mg PO DAILY 12/29/17 Ascorbic Acid [Vitamin C] 1,500 mg PO DAILY 10/27/18 Potassium Chloride [Klor-Con M20] 40 meq PO BID 10/27/18 Simvastatin 40 mg PO QHS 10/27/18 albuterol sulfate 90 mcg/actuation aerosol inhaler 1 puff INHALATION Q2H PRN 30 Days #36 g 04/13/19 clopidogrel 75 mg tablet 75 mg PO DAILY 04/13/19 lamotrigine 150 mg tablet 150 mg PO DAILY 04/13/19 Fesoterodine Fumarate [Toviaz] 8 mg PO DAILY 07/19/19 Pantoprazole Sodium [Protonix] 40 mg PO DAILY 08/08/19 Acetaminophen [Tylenol Tablet] 650 mg PO Q6H PRN PRN tab 08/12/19 Diltiazem CD [Cardizem CD] 120 mg PO DAILY cap 08/12/19 Lorazepam [Ativan] 1 mg PO Q12H PRN PRN 5 Days #10 tab 08/12/19 Metoprolol Tartrate [Lopressor (beta danielle)] 50 mg PO BID tab 08/12/19 Senna/Docusate Sodium [Senokot-S] 2 tab PO BID PRN tab 08/12/19 Aspirin [Aspirin, Baby] 81 mg PO DAILY 11/29/19 apixaban 5 mg tablet 5 mg PO BID #180 tab 11/29/19 Primary Care Physician: Osiel Grimaldo Chi, MD [Primary Care Provider] - Please follow up with your Primary Care Physician in: 1 Week Disposition: Home Minutes spent on discharge:: 35 Patient Condition:: Stable Medical Necessity - Tobacco Use Smoking Status: Former smoker Meaningful Use Info Meaningful Use Diagnoses (Choose all that apply): None applicable <Fariha Cote - Last Filed: 12/01/19 10:35> Discharge Date and Diagnosis - Secondary Discharge Diagnosis Chronic Problems (Last Updated 11/30/19 @ 07:14 by Fariha Cote MD) Persistent atrial fibrillation (Chronic) DDD (degenerative disc disease), lumbar (Chronic) Segmental and somatic dysfunction of thoracic region (Chronic) Segmental and somatic dysfunction of pelvic region (Chronic) Segmental and somatic dysfunction of lumbar region (Chronic) Nonischemic cardiomyopathy (Chronic) Hyperlipidemia (Chronic) Essential (primary) hypertension (Chronic) Paroxysmal atrial fibrillation (Chronic) Atrial fibrillation and flutter (Chronic) Hospital Course and Treatment Summary of Care Provided: Hospitalist note: Discharge summary above reviewed and I concur with the above discharge plan. Patient admitted for chest pain for evaluation. It was atypical chest pain. EKG revealed A. fib without evidence of acute segment changes. Troponin was negative x3. Chest x-ray showed no acute findings. Routine blood work was unremarkable. BMP was normal. Lipid profile revealed normal total cholesterol, LDL cholesterol of 77, HDL cholesterol of 40. Her vital signs were stable throughout admission. She underwent never stress test that was normal without evidence of stress-induced myocardial ischemia and with preserved ejection fraction. ACS ruled out. Patient discharged home in a stable condition, discharged on her previous home medications without any changes, recommended follow-up with PCP in 1 week. - Physical Exam General: Alert, Oriented x3, Cooperative, No apparent distress. HEENT: Atraumatic, PERRLA, EOMI. Neck: Supple, No JVD, Negative Carotid Bruits, Trachea Midline, Thyroid Normal. Lungs: Clear to auscultation, Normal air movement, No rhonchi, No wheeze, No rales. Cardiovascular: Irregular rate and rhythm, Normal S1, Normal S2, PMI Normal. Abdomen: Bowel Sounds Present, Soft, Non Tender, Non-Distended, No Hepato- splenomegaly. Extremities: No clubbing, No cyanosis, No edema Skin: No rashes, No breakdown Neurological: Cranial nerves are intact, neuro grossly intact Vital Signs are stable. This note was generated with [employer] dictation software. It may contain incorrect words, spelling, and punctuation that were not noted in checking the note before signing. - Physical Exam Vitals/I&O's: Vital Signs Temp Pulse Resp BP Pulse Ox 97.8 F 70 16 130/81 H 97 11/30/19 13:08 11/30/19 16:09 11/30/19 13:08 11/30/19 13:08 11/30/19 13:08 Oxygen Delivery Method Room Air Weight: 283 lb 11.759 oz Body Mass Index (BMI) 43.1 Intake and Output for Last 24 Hours 11/28/19 11/29/19 11/30/19 23:59 23:59 23:59 Intake Total 200 / 200 520 / 520 Output Total 150 / 150 Balance 50 / 50 520 / 520 Laboratory Results 11/29/19 21:12: Troponin I < 0.015 11/29/19 23:58: Troponin I < 0.015 11/30/19 05:35: WBC 7.9, RBC 4.07 L, Hgb 11.5 L, Hct 36.8 L, MCV 90.4, MCH 28.3, MCHC 31.3 L, RDW Std Deviation 48.1 H, RDW Coeff of Eric 14.6, Plt Count 240, MPV 10.0, Immature Gran % (Auto) 0.500, Neut % (Auto) 69.1, Lymph % (Auto) 18.9 L, Deuel % (Auto) 6.9, Eos % (Auto) 4.2, Baso % (Auto) 0.4, Absolute Neuts (auto) 5.4, Absolute Lymphs (auto) 1.49, Nucleated RBC % 0 11/30/19 05:35: Sodium 142, Potassium 4.0, Chloride 109 H, Carbon Dioxide 31.0, Anion Gap 2 L, BUN 18, Creatinine 0.82, Estim Creat Clear Calc 69.00, Est GFR (MDRD) Af Amer 90, Est GFR (MDRD) Non-Af 74, BUN/Creatinine Ratio 22.0 H, Glucose 89, Calcium 8.5, Triglycerides 129, Cholesterol 143, LDL Cholesterol 77, VLDL Cholesterol 26, HDL Cholesterol 40 Disposition: Home Minutes spent on discharge:: 25 Patient Condition:: Stable Meaningful Use Info Meaningful Use Diagnoses (Choose all that apply): None applicable Code Visit OBSV E&M: 83672 Observation care discharge
--- NOTE | 2019-11-30 15:03 | PHA.DC.MR ---
Pharmacy Service has performed discharge medication reconciliation for this patient. Home Medications Furosemide 40 mg PO BID 02/05/16 fluoxetine 40 mg capsule 40 mg PO DAILY 12/29/17 Ascorbic Acid [Vitamin C] 1,500 mg PO DAILY 10/27/18 Potassium Chloride [Klor-Con M20] 40 meq PO BID 10/27/18 Simvastatin 40 mg PO QHS 10/27/18 albuterol sulfate 90 mcg/actuation aerosol inhaler 1 puff INHALATION Q2H PRN 30 Days #36 g 04/13/19 clopidogrel 75 mg tablet 75 mg PO DAILY 04/13/19 lamotrigine 150 mg tablet 150 mg PO DAILY 04/13/19 Fesoterodine Fumarate [Toviaz] 8 mg PO DAILY 07/19/19 Pantoprazole Sodium [Protonix] 40 mg PO DAILY 08/08/19 Acetaminophen [Tylenol Tablet] 650 mg PO Q6H PRN PRN tab 08/12/19 Diltiazem CD [Cardizem CD] 120 mg PO DAILY cap 08/12/19 Lorazepam [Ativan] 1 mg PO Q12H PRN PRN 5 Days #10 tab 08/12/19 Metoprolol Tartrate [Lopressor (beta avila)] 50 mg PO BID tab 08/12/19 Senna/Docusate Sodium [Senokot-S] 2 tab PO BID PRN tab 08/12/19 Aspirin [Aspirin, Baby] 81 mg PO DAILY 11/29/19 apixaban 5 mg tablet 5 mg PO BID #180 tab 11/29/19 The patient's discharge medication list was reviewed for discrepancies and discrepancies were resolved.
--- NOTE | 2019-11-30 17:56 | STRESSREP ---
Stress Test Report Pharmacologic myocardial perfusion stress test. 64-year-old lady with a history of atrial fibrillation. Stress protocol: Resting EKG demonstrates atrial fibrillation with a rate of 91 bpm normal intervals are noted resting blood pressures 150 104 mmHg. 0.4 mg of regadenoson was infused per usual protocol followed by Intravenous saline flush injection continuous EKG monitoring was performed. The maximum heart rate attained was 104 bpm which was 67% of maximum predicted heart rate the maximum workload was 1 metabolic equivalent. The patient maintained atrial fibrillation throughout the recording at rest and during peak infusion nonspecific ST-T wave changes were noted. Myocardial perfusion protocol. 15.1 mCi of technetium 99m sestamibi was injected at rest. 0.4 mg of regadenoson was infused per usual protocol peak infusion 44.6 mCi of technetium 99m sestamibi was injected stress images were obtained stress and rest images were reconstructed in comparing the short axis vertical long horizontal long axis. Gated images was obtained Perfusion SPECT analysis: Review of the stress images demonstrate normal uptake of tracer noted in all areas of the myocardium the resting images similar demonstrate normal uptake of tracer noted in all areas of the myocardium. No areas of reversibility are noted suggest ischemia no previous infarct is noted. Gated SPECT analysis: The gated ejection fraction is 51%. Conclusion: Normal pharmacologic myocardial perfusion stress test. Preserved ejection fraction. Atrial fibrillation noted.
== END 2019-11-30 11:58 | disposition home or self-care (01) ==
LOC: ED 18:01 → PCU 20:51
PROVIDERS: Admitting Provider Hospitalist; Emergency Provider Emergency Medicine; PCP Family Medicine Geriatric Medicine; Visit Provider Hospitalist
DX: R07.89 Other chest pain (principal); I10 Essential (primary) hypertension; I48.19 Other persistent atrial fibrillation; K21.9 Gastro-esophageal reflux disease without esophagitis; J44.9 Chronic obstructive pulmonary disease, unspecified; E78.5 Hyperlipidemia, unspecified; F41.9 Anxiety disorder, unspecified; M51.36 Other intervertebral disc degeneration, lumbar region; M99.05 Segmental and somatic dysfunction of pelvic region; M99.03 Segmental and somatic dysfunction of lumbar region; M99.02 Segmental and somatic dysfunction of thoracic region; I42.8 Other cardiomyopathies; E66.01 Morbid (severe) obesity due to excess calories; G47.33 Obstructive sleep apnea (adult) (pediatric); F31.9 Bipolar disorder, unspecified; I48.92 Unspecified atrial flutter; E11.9 Type 2 diabetes mellitus without complications; M41.9 Scoliosis, unspecified; Z68.41 Body mass index [BMI] 40.0-44.9, adult; Z71.3 Dietary counseling and surveillance; Z79.899 Other long term (current) drug therapy; Z79.82 Long term (current) use of aspirin; Z79.02 Long term (current) use of antithrombotics/antiplatelets; Z87.891 Personal history of nicotine dependence
CPT/HCPCS: 36415; 71045; 78452; 80048; 80061; 83880; 84484; 85025; 93005; 93017; 94640; 99218; 99285; A9500; A4216; G0378; J2785

== ENCOUNTER 2020-01-04 09:00 | Outpatient (RCR) | payer MEDICARE, MEDICAID, SELFPAY ==
[2019-11-29 20:13] VITALS: BMI 43.1
[2019-12-14 09:35] VITALS: BP 155/107; PULSE 77; RESP 20; TEMP 36.3; BMI 41.3
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
[2019-12-21 10:08] VITALS: BP 130/67; PULSE 94; RESP 18; TEMP 36.1; BMI 41.3
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
[2019-12-28 09:27] VITALS: BP 117/68; PULSE 84; RESP 20; TEMP 35.7; BMI 41.3
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
== END 2020-01-07 23:59 ==
LOC: WC 09:00
PROVIDERS: PCP Family Medicine Geriatric Medicine; Referring Provider Nurse Practitioner; Visit Provider Nurse Practitioner
DX: T14.8XXA Other injury of unspecified body region, initial encounter (principal); S81.811A Laceration without foreign body, right lower leg, initial encounter; Y83.8 Other surgical procedures as the cause of abnormal reaction of the patient, or of later complication, without mention of misadventure at the time of the procedure; M51.36 Other intervertebral disc degeneration, lumbar region; I48.20 Chronic atrial fibrillation, unspecified; I48.92 Unspecified atrial flutter; L08.9 Local infection of the skin and subcutaneous tissue, unspecified; V09.9XXA Pedestrian injured in unspecified transport accident, initial encounter
CPT/HCPCS: 11042; 87070; 87075; 87077; 87186; 87205; 99213; G0463

== ENCOUNTER 2020-01-11 08:39 | Outpatient (RCR) | payer MEDICARE, MEDICAID, SELFPAY ==
[2019-12-28 09:27] VITALS: BMI 41.3
[2020-01-08 01:02] VITALS: BP 117/68; PULSE 84; RESP 20; TEMP 35.7
[2020-01-11 10:04] VITALS: BP 152/94; PULSE 95; RESP 16; TEMP 36.1; BMI 41.3
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
== END 2020-02-07 23:59 ==
LOC: WC 08:39
PROVIDERS: PCP Family Medicine Geriatric Medicine; Referring Provider Nurse Practitioner; Visit Provider Nurse Practitioner
DX: Z09 Encounter for follow-up examination after completed treatment for conditions other than malignant neoplasm (principal); I48.20 Chronic atrial fibrillation, unspecified; I48.92 Unspecified atrial flutter; I10 Essential (primary) hypertension; M51.36 Other intervertebral disc degeneration, lumbar region; Z86.14 Personal history of Methicillin resistant Staphylococcus aureus infection
CPT/HCPCS: 99212; G0463

== ENCOUNTER 2020-01-27 13:28 | Emergency (ER) | payer MEDICARE, MEDICAID, SELFPAY ==
[2020-01-27 13:29] VITALS: BP 125/76; PULSE 87; RESP 16; TEMP 36.7; O2SAT 96; BMI 42.8
--- NOTE | 2020-01-27 13:50 | CT_ITS ---
STUDY: CT BRAIN WITHOUT CONTRAST REASON FOR EXAM: Female, 64 years old. HEADACHE X 4 DAYS, NAUSEA, ANEURYSM CLIP RADIATION DOSAGE (If Supplied By Facility): CTDIvol = ( 44.99 ) mGy, DLP = ( 863.60 ) mGycm TECHNIQUE: Transaxial CT imaging of the brain was performed without administration of intravenous contrast material. Individualized dose optimization techniques were used for this CT. COMPARISON: Comparison is made with prior examination dated May 21, 2019. FINDINGS: Normal soft tissue structures. Normal calvarium. There is mild cerebral atrophy with widening of the extra-axial spaces and ventricular dilatation. There are areas of decreased attenuation within the white matter tracts of the supratentorial brain, consistent with microvascular disease changes. Normal basal ganglia and thalami. Normal brainstem. Normal cerebellum. There is no intracranial hemorrhage. There are no findings of an acute ischemic infarction. And aneurysmal clip is seen within the posterior fossa. This is unchanged. Atherosclerotic calcification of the cavernous portions of the internal carotid arteries bilaterally. Normal visualized paranasal sinuses. CT/Brain/Head without Contrast IMPRESSION: Chronic involutional changes of the brain. 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 Electronically Signed: Dwight Ledbetter, at 14:42 EDT , Service support ,
--- NOTE | 2020-01-27 13:53 | ED.DCSUM_ITS ---
History of Present Illness Chief Complaint: Headache Narrative: 64-year-old woman with a history of previous aneurysm coiling presents with dizziness and nausea for the past 4 days. This happens to her intermittently since her coiling at [facility] 1 year ago. She had an appointment yesterday for an outpatient CT angiogram to evaluate her aneurysm but it was canceled secondary to the coronavirus pandemic statewide closures. She is somewhat nervous now because this canceled. She denies lateralizing weakness, slurred speech, or confusion. Onset was gradual. Severity is mild Past Medical History - Allergies and Home Meds Allergies/Adverse Reactions: Allergies morphine Allergy (Verified 01/27/20 13:32) Itching nifedipine [From Procardia] Adverse Reaction (Verified 01/27/20 13:32) Causes elevated BP Primary Care Physician: Osiel Grimaldo Chi, MD [Primary Care Provider] - Prior records reviewed: Yes Surgical History: - - T+A, Cholecystectomy, Hysterectomy, Vaginal fistula repairs, L TKR, Bunion/hammertoe RLE, Carpal tunnel BL. Smoking Status: Former smoker - Family History Maternal Family History: Family History (Last Reviewed 11/29/19 @ 21:[address] Bobby Alford MD) Mother Breast cancer Diabetes Brother Cancer Family History: Reports: Diabetes Paternal Family History: Family History (Last Reviewed 11/29/19 @ 21:[address] Bobby Alford MD) Mother Breast cancer Diabetes Brother Cancer Family History: Reports: Cancer Review of Systems General: Denies: Chills, Fever, Sweats Eyes: Denies: Visual changes - bilaterally, Diplopia ENT: Denies: Rhinorrhea, Sore throat Cardiovascular: Denies: Chest pain, Palpitations Respiratory: Denies: Dyspnea, Cough, Dyspnea on exertion Gastrointestinal: Reports: Nausea. Denies: Abdominal pain, Vomiting, Diarrhea, Melena, Hematochezia Genitourinary: Denies: Dysuria, Hematuria, Frequency Musculoskeletal: Denies: Back pain, Extremity Pain Skin: Denies: Rash, Wounds Neurological: Reports: Headache. Denies: Weakness, Numbness Physical Exam Vital Signs/Narrative: Vital Signs Temp Pulse Resp BP Pulse Ox 01/27/20 13:29 98.0 F 87 16 125/76 H 96 General: Well nourished, Well developed, No Acute Distress Head: Normocephalic, Atraumatic Eyes: Perrl, EOMI ENT: Moist mucous membranes, No rhinorrhea Neck: Supple, Nontender Cardiovascular: Regular rate, Regular rhythm, No murmurs Respiratory: No distress, CTA bilaterally, Chest nontender Abdomen: Soft, Nontender, Nondistended, Normal bowel sounds Back: Nontender, Normal Inspection Extremities: Nontender, No edema Skin: Normal color, No rash Neurological: Alert, Oriented x3, Cranial nerves II-XII grossly intact, Normal Strength, Normal Sensation, - - No objective ataxia. NIH is 0. Psychological: Normal affect, Normal Mood Diagnostic/Tx/Re-eval - Medical Decision Making I ordered a CT brain. It was negative. Labs are within normal. She was given IV fluids and Phenergan. On reexamination she essentially feels back to baseline. She has no objective ataxia. Her NIH is 0. I did explain that this could be posterior circulation stroke and we discussed admission to the hospital for MRI or possibly a CT angiogram of the brain in the emergency department. She does not want this. She would prefer not to stay in the hospital because of concerns for coronavirus exposure. She states that she already has an appointment set up with her neurologist for follow-up. This is somewhat of a chronic recurrent issue and her aneurysm clipping appears stable on the noncontrast CT. She looks well and at this point I feel she can safely be discharged. She will return here if worse. ED Disposition - Plan for ED Patient: Disposition: Home or Assisted Living Diagnosis: Headache Instructions: HEADACHE, Unspecified Referrals: Osiel Grimaldo Chi, MD [Primary Care Provider] - As soon as possible
[2020-01-27] MEDS: 0.9% Normal Saline 1,000 ML 1000 ML IV (14:06)
[2020-01-27] MEDS: proMETHazine 25 MG/ML Syringe 6.25 MG IV (14:06)
[2020-01-27 14:31] LABS: Absolute Lymphocyte Count 1.19 X10^3/uL (0.83-4.51); Absolute Neutrophil Count 4.9 X10^3/uL (2.0-7.7); Basophil# 0.04 X10^3/uL; Basophil% 0.6 % (0-1); Eosinophils% 4.2 % (0-5); Hematocrit 37.3 % (37-47); Hemoglobin 11.6 g/dL (12.0-15.0); Lymphocyte # 1.19 X10^3/ul (4.0); Lymphocyte % 16.7 % (19-41); Mean Corp Hgb Conc 31.1 g/dL (32-36); Mean Corpuscular Hgb 28.2 pg (27.0-32.0); Mean Corpuscular Volume 90.8 fL (81-99); Mean Platelet Vol. 10.5 fl (6.2-12.0); Monocyte# 0.68 X10^3/uL; Monocyte% 9.6 % (0-10); NRBC Flagged by Analyzer 0 % (0-5); Neutrophil # 4.86 X10^3/uL (2.7-7.7); Neutrophil % 68.3 % (47-70); Platelet Count 258 K/mm3 (150-450); RBC Distribution Width CV 14.5 % (11.6-14.6); RBC Distribution Width SD 48.1 fl (35.1-43.9); Red Blood Count 4.11 M/mm3 (4.2-5.4); White Blood Count 7.1 K/mm3 (4.4-11.0)
[2020-01-27 14:37] LABS: Anion Gap 4 (5-15); BUN 23 mg/dL (7-18); BUN/Creat Ratio 26.6 RATIO (10-20); Calcium,Total 8.6 mg/dL (8.5-10.1); Chloride 110 mmol/L (98-107); Creatinine, Serum 0.86 mg/dL (0.55-1.02); EST Glomerular Filtration Rate 70 mL/min (>60); Est Glom Filt Rate - Afr Amer 85 mL/min (>60); Estimated Creatinine Clearance 65.79 ml/min; Glucose 98 mg/dL (74-106); Potassium 4.2 mmol/L (3.5-5.1); Sodium Level 145 mmol/L (136-145)
[2020-01-27 15:41] VITALS: BP 110/61; PULSE 102; RESP 17; O2SAT 98
== END 2020-01-27 15:42 | disposition home or self-care (01) ==
PROVIDERS: Emergency Provider Emergency Medicine; PCP Family Medicine Geriatric Medicine
DX: R51 Headache (principal); R42 Dizziness and giddiness; R11.0 Nausea; Z87.891 Personal history of nicotine dependence
CPT/HCPCS: 70450; 80048; 85025; 96361; 96374; 99283; J7030

== ENCOUNTER 2020-02-27 13:23 | Emergency (ER) | payer MEDICARE, MEDICAID, SELFPAY ==
[2020-02-27 13:26] VITALS: BP 157/101; PULSE 74; RESP 19; TEMP 36.6; O2SAT 96; BMI 44.7
--- NOTE | 2020-02-27 13:42 | ED.DCSUM_ITS ---
History of Present Illness Chief Complaint: Dental Informant: Patient Onset: Yesterday Current Severity: Moderate Maximum Severity: Moderate Narrative: Patient has widespread dental decay, she is presenting with dental pain right lower central tooth, this was chipped off recently. She has no fever chills she has no facial swelling. She denies any difficulty swallowing. Past Medical History - Allergies and Home Meds Allergies/Adverse Reactions: Allergies morphine Allergy (Verified 02/27/20 13:25) Itching nifedipine [From Procardia] Adverse Reaction (Verified 02/27/20 13:25) Causes elevated BP Primary Care Physician: Osiel Grimaldo Chi, MD [Primary Care Provider] - Past Medical History: - - Hypertension hypercholesterolemia, she has atrial fibrillation she has anticoagulated with Eliquis Surgical History: - - T+A, Cholecystectomy, Hysterectomy, Vaginal fistula repairs, L TKR, Bunion/hammertoe RLE, Carpal tunnel BL. Smoking Status: Former smoker - Family History Maternal Family History: Family History (Last Reviewed 11/29/19 @ 21:[address] Bobby Alford MD) Mother Breast cancer Diabetes Brother Cancer Family History: Reports: Diabetes Paternal Family History: Family History (Last Reviewed 11/29/19 @ 21:[address] Bobby Alford MD) Mother Breast cancer Diabetes Brother Cancer Family History: Reports: Cancer Review of Systems General: Denies: Fever Eyes: Denies: Visual changes - bilaterally ENT: Reports: - - Dental pain as in HPI. Denies: Rhinorrhea, Sore throat Cardiovascular: Denies: Chest pain Skin: Denies: Rash Neurological: Denies: Weakness Hematologic: Reports: Easy bruising, Easy bleeding Physical Exam Vital Signs/Narrative: Vital Signs Temp Pulse Resp BP Pulse Ox 02/27/20 13:26 98 F 74 19 H 157/101 H 96 General: - - She does not appear in significant distress ENT: - - She has widespread dental decay, she is got a right lower central tooth decay, the remnant is at the level of the gingiva. There is no periapical abscess or facial swelling. Cardiovascular: Regular rate Respiratory: No distress Skin: Normal color, No rash Neurological: Normal Strength, Normal Sensation Diagnostic/Tx/Re-eval - Medical Decision Making Patient will be treated with antibiotics and analgesia. I will give her a dental referral ED Disposition - Plan for ED Patient: Disposition: Home or Assisted Living Diagnosis: Odontalgia Instructions: ED CAVITY Dental, ED Tooth Pain Prescriptions: Hydrocodone Bitart/Apap 5-325 [[place] 5MG-325MG] 1 tablet PO Q4H PRN PRN 2 Days #6 tablet PRN Reason: Pain Transmission Status: Sent to [place] [id number] Penicillin V Potassium 500 mg PO 4X/DAY #40 tab Transmission Status: Pending to [place] [id number] Referrals: Osiel Grimaldo Chi, MD [Primary Care Provider] - 3-5 Days
== END 2020-02-27 14:05 | disposition home or self-care (01) ==
LOC: ED 13:54
PROVIDERS: Emergency Provider Emergency Medicine; PCP Family Medicine Geriatric Medicine
DX: K08.89 Other specified disorders of teeth and supporting structures (principal); K02.9 Dental caries, unspecified; I10 Essential (primary) hypertension; E78.00 Pure hypercholesterolemia, unspecified; I48.91 Unspecified atrial fibrillation; Z79.01 Long term (current) use of anticoagulants; Z79.82 Long term (current) use of aspirin; Z79.899 Other long term (current) drug therapy; Z87.891 Personal history of nicotine dependence
CPT/HCPCS: 99282

== ENCOUNTER → 2020-03-07 15:41 | Outpatient (CLI) | payer MEDICARE, MEDICAID, SELFPAY ==
[2020-02-27 13:26] VITALS: BMI 44.7
[2020-03-07 16:17] LABS: Absolute Lymphocyte Count 1.86 X10^3/uL (0.83-4.51); Absolute Neutrophil Count 6.3 X10^3/uL (2.0-7.7); Basophil# 0.06 X10^3/uL; Basophil% 0.6 % (0-1); Eosinophil# 0.48 X10^3/uL; Eosinophils% 5.1 % (0-5); Hematocrit 39.8 % (37-47); Hemoglobin 12.3 g/dL (12.0-15.0); Lymphocyte # 1.86 X10^3/ul (4.0); Lymphocyte % 19.7 % (19-41); Mean Corp Hgb Conc 30.9 g/dL (32-36); Mean Corpuscular Hgb 27.4 pg (27.0-32.0); Mean Corpuscular Volume 88.6 fL (81-99); Mean Platelet Vol. 10.3 fl (6.2-12.0); Monocyte# 0.67 X10^3/uL; Monocyte% 7.1 % (0-10); NRBC Flagged by Analyzer 0 % (0-5); Neutrophil # 6.32 X10^3/uL (2.7-7.7); Platelet Count 341 K/mm3 (150-450); RBC Distribution Width CV 14.5 % (11.6-14.6); RBC Distribution Width SD 46.7 fl (35.1-43.9); Red Blood Count 4.49 M/mm3 (4.2-5.4); White Blood Count 9.4 K/mm3 (4.4-11.0)
[2020-03-07 16:49] LABS: ALB/GLOB Ratio 1.1 RATIO (0.9-2.4); AST(SGOT) 14 U/L (15-37); Alanine Aminotransfer ALT/SGPT 18 U/L (13-56); Albumin, Serum 3.7 g/dL (3.2-5.0); Alkaline Phosphatase 110 U/L (45-117); Anion Gap 5 (5-15); BUN 23 mg/dL (7-18); BUN/Creat Ratio 24.4 RATIO (10-20); Calcium,Total 8.9 mg/dL (8.5-10.1); Chloride 109 mmol/L (98-107); Creatinine, Serum 0.94 mg/dL (0.55-1.02); EST Glomerular Filtration Rate 63 mL/min (>60); Est Glom Filt Rate - Afr Amer 76 mL/min (>60); Globulin 3.5 g/dL (2.2-4.2); Glucose 104 mg/dL (74-106); Potassium 4.2 mmol/L (3.5-5.1); Protein, Total 7.2 g/dL (6.4-8.2); Sodium Level 140 mmol/L (136-145); Thyroid Stim Hormone (TSH) 1.69 uIU/mL (0.358-3.74)
== END ==
PROVIDERS: PCP Family Medicine Geriatric Medicine; Referring Provider Family Medicine Geriatric Medicine; Visit Provider Family Medicine Geriatric Medicine
DX: E11.9 Type 2 diabetes mellitus without complications (principal); E55.9 Vitamin D deficiency, unspecified; I10 Essential (primary) hypertension
CPT/HCPCS: 36415; 80053; 82306; 84443; 85025

== ENCOUNTER → 2020-04-19 10:38 | Outpatient (CLI) | payer MEDICARE, MEDICAID, SELFPAY | PROVIDERS: PCP Family Medicine Geriatric Medicine; Referring Provider Family Medicine Geriatric Medicine; Visit Provider Family Medicine Geriatric Medicine | DX: R68.83 Chills (without fever) (principal) | CPT/HCPCS: 87635; G2023; U0003 ==

== ENCOUNTER 2020-05-08 17:19 | Inpatient (IN) | payer MEDICARE, MEDICAID, SELFPAY ==
[2020-05-08 17:54] VITALS: BMI 43.6
[2020-05-08 18:34] VITALS: BP 137/84; PULSE 99; RESP 18; TEMP 36.8; O2SAT 94
[2020-05-08 19:44] VITALS: BP 132/82; PULSE 94; RESP 16; TEMP 36.7; O2SAT 99
[2020-05-08 20:28] VITALS: BMI 43.6
[2020-05-08] MEDS: Gabapentin 400 MG Capsule PO (20:47)
[2020-05-08] MEDS: Atorvastatin Calcium 20 MG Tablet PO (20:47)
[2020-05-08] MEDS: traZODone 100 MG Tablet PO (20:48)
[2020-05-08] MEDS: lamoTRIgine 100 MG Tablet 200 MG PO (20:48)
[2020-05-08] MEDS: Acetaminophen 325 MG Tablet 650 MG PO (20:58)
[2020-05-08] MEDS: Senna/Docusate Sodium 1 Tablet 2 TABLET PO (20:59)
[2020-05-08 22:00] VITALS: BMI 43.6
[2020-05-09 05:49] LABS: Absolute Lymphocyte Count 1.33 X10^3/uL (0.83-4.51); Absolute Neutrophil Count 5.5 X10^3/uL (2.0-7.7); Basophil# 0.04 X10^3/uL; Basophil% 0.5 % (0-1); Eosinophil# 0.37 X10^3/uL; Eosinophils% 4.7 % (0-5); Hematocrit 36.1 % (37-47); Hemoglobin 11.1 g/dL (12.0-15.0); Lymphocyte # 1.33 X10^3/ul (4.0); Lymphocyte % 16.9 % (19-41); Mean Corp Hgb Conc 30.7 g/dL (32-36); Mean Corpuscular Hgb 28.2 pg (27.0-32.0); Mean Corpuscular Volume 91.9 fL (81-99); Mean Platelet Vol. 9.9 fl (6.2-12.0); Monocyte# 0.59 X10^3/uL; Monocyte% 7.5 % (0-10); NRBC Flagged by Analyzer 0 % (0-5); Neutrophil # 5.46 X10^3/uL (2.7-7.7); Neutrophil % 69.3 % (47-70); Platelet Count 270 K/mm3 (150-450); RBC Distribution Width CV 15.8 % (11.6-14.6); RBC Distribution Width SD 53.1 fl (35.1-43.9); Red Blood Count 3.93 M/mm3 (4.2-5.4); White Blood Count 7.9 K/mm3 (4.4-11.0)
[2020-05-09 06:23] LABS: ALB/GLOB Ratio 0.9 RATIO (0.9-2.4); AST(SGOT) 12 U/L (15-37); Alanine Aminotransfer ALT/SGPT 17 U/L (13-56); Albumin, Serum 2.7 g/dL (3.2-5.0); Alkaline Phosphatase 82 U/L (45-117); Anion Gap 6 (5-15); BUN 14 mg/dL (7-18); BUN/Creat Ratio 20.4 RATIO (10-20); Calcium,Total 8.6 mg/dL (8.5-10.1); Chloride 106 mmol/L (98-107); Creatinine, Serum 0.68 mg/dL (0.55-1.02); EST Glomerular Filtration Rate 91 mL/min (>60); Est Glom Filt Rate - Afr Amer 111 mL/min (>60); Globulin 3.1 g/dL (2.2-4.2); Glucose 119 mg/dL (74-106); Magnesium 2.2 mg/dL (1.6-2.6); Potassium 3.8 mmol/L (3.5-5.1); Protein, Total 5.8 g/dL (6.4-8.2); Sodium Level 142 mmol/L (136-145)
[2020-05-09 07:25] VITALS: BP 149/80; PULSE 98; RESP 16; TEMP 36.6; O2SAT 93
[2020-05-09] MEDS: Senna/Docusate Sodium 1 Tablet 2 TABLET PO ×2 (07:52→22:06)
[2020-05-09] MEDS: FLUoxetine 20 MG Capsule 40 MG PO (07:52)
[2020-05-09] MEDS: Pantoprazole Sodium 40 MG Tablet PO (07:53)
[2020-05-09] MEDS: Multivitamins,Ther W-Minerals Tablet 1 TABLET PO (07:53)
[2020-05-09] MEDS: Gabapentin 400 MG Capsule PO ×2 (07:53→22:06)
[2020-05-09] MEDS: Vitamin E 400 UNITS Capsule PO (07:53)
[2020-05-09] MEDS: lamoTRIgine 100 MG Tablet 200 MG PO ×2 (07:53→22:06)
[2020-05-09] MEDS: Aspirin 81 MG TAB.CHEW PO (07:53)
[2020-05-09] MEDS: dilTIAZem CD 120 MG Capsule PO (07:53)
[2020-05-09] MEDS: Menthol/Lanolin/Calamine/Znox 113 GM Tube 1 APPLIC TOPICAL ×2 (07:55→22:07)
[2020-05-09] MEDS: Nystatin Powder 15gm Bottle 1 APPLIC TOPICAL ×2 (07:55→22:08)
[2020-05-09 09:42] VITALS: BMI 43.6
--- NOTE | 2020-05-09 13:33 | HP.PCM_ITS ---
Problem List (1) Physical debility Status: Acute Comment: due to hemorrhagic CVA due to recurrent left PIC Awith coiling done at [facility] by Dr. Cope (2) Hemorrhagic cerebrovascular accident (CVA) Status: Acute Comment: due to ruptured aneursym Lt PICA on 04/26/20 (3) Status post coil embolization of cerebral aneurysm Status: Acute Comment: on 04/25/[address] Cope at [facility] (4) Bipolar disorder Status: Chronic (5) Urinary incontinence Status: Chronic Comment: Chronically on Toviaz (6) Nonhealing nonsurgical wound limited to breakdown of skin Status: Resolved (7) Infected open wound Status: Resolved (8) MRSA (methicillin resistant Staphylococcus aureus) infection Status: Resolved (9) Sepsis Status: Resolved Qualifiers: Severe sepsis shock status: with septic shock Comment: Sepsis due to UTI while at [facility] prior to transfer to rehab on 05/08/2020. Required Dopamine for hypotension and junctional rhythm. Due to UTI caused by Staph Simulans (10) UTI (urinary tract infection) Status: Resolved Qualifiers: Comment: due to Staph Simulans at [facility] April 2020 (11) Chest pain Status: Inactive (12) Persistent atrial fibrillation Status: Chronic Comment: normally on Eliquis (13) DDD (degenerative disc disease), lumbar Status: Chronic (14) Segmental and somatic dysfunction of thoracic region Status: Chronic (15) Segmental and somatic dysfunction of pelvic region Status: Chronic (16) Segmental and somatic dysfunction of lumbar region Status: Chronic (17) Nonischemic cardiomyopathy Status: Chronic Comment: Echocardiogram in June 2019 showed a 55% ejection fraction with no wall motion abnormalities. There was mild concentric left ventricular hypertrophy. The left ventricular systolic function had improved from the prior study. (18) Hyperlipidemia Status: Chronic Qualifiers: (19) Essential (primary) hypertension Status: Chronic (20) Morbid obesity with BMI of 40.0-44.9, adult Status: Chronic (21) Tobacco dependence in remission Status: Chronic Comment: quit in October of 1999 (22) Alcohol dependence in remission Status: Chronic Comment: quit in 2011? (23) Venous insufficiency of both lower extremities Status: Chronic (24) Chronic anticoagulation Status: Chronic Comment: With Eliquis for atrial fibrillation. Currently being held in light of recent hemorrhagic CVA due to rupture of aneurysm PICA (25) Inflammatory polyarthropathy Status: Chronic (26) CABRERA (nonalcoholic steatohepatitis) Status: Chronic (27) Vitamin D deficiency Status: Acute (28) Restless leg syndrome Status: Chronic (29) Left atrial enlargement Status: Chronic (30) Diplopia Status: Acute (31) Subarachnoid hemorrhage due to ruptured aneurysm Status: Acute Comment: acute -associated with interventricular hemorrage on 04/26/20 1 day after coiling of the L PICA (04/25/20) History of Present Illness Date of Admission: 05/08/20 Chief Complaint: Debility secondary to subarachnoid hemorrhage and intraventricular bleeding due to bleeding from a PICA aneurysm that was coiled on 04/25/20 Devorah Storey is a 64 year old F with a past medical history of essential hypertension, hyperlipidemia, morbid obesity, bipolar disorder, tobacco dependence in remission, alcohol dependence in remission, inflammatory polyarthropathy, chronic urinary incontinence, persistent atrial fibrillation, chronic anticoagulation with Eliquis, history of nonischemic cardiomyopathy, left ventricular hypertrophy, CABRERA, restless leg syndrome, left atrial enlargement and pulmonary HTN evident on PFT's in 2016 who was admitted to [facility] on 04/25/20 for an elective coiling of a PICA aneurysm by Dr. Cope. There were no complications during the procedure but, on 04/26/20 she had SAH and interventricular hemorrhage which I presume was due to leaking or rupture of the aneurysm. She was also diagnosed with Septic shock requiring pressors due to UTI with Staph Simulans. She had hypotension and a junctional rhythm at that time. An ECHO revealed a EF of 68% and LVH had resolved. She had moderate LAE. She was transferred to the inpt Rehab unit at [facility] on 05/08/20 for 3 hours of therapy daily to restore function at or near her level of functioning prior to the recent CVA. All paperwork from [facility] was reviewed as well as the EMR from admissions to [facility] in the past. Toña denies hx of sleep apnea and tells me that she had a sleep study in 2018 at a hotel? Past Medical History Past Medical History (Chronic Problems): Chronic Problems (Last Updated 11/30/19 @ 07:[address] Fariha Cote MD) Bipolar disorder (Chronic) Urinary incontinence (Chronic) Chronically on Toviaz Morbid obesity with BMI of 40.0-44.9, adult (Chronic) Tobacco dependence in remission (Chronic) quit in October of 1999 Alcohol dependence in remission (Chronic) quit in 2011? Venous insufficiency of both lower extremities (Chronic) Chronic anticoagulation (Chronic) With Eliquis for atrial fibrillation. Currently being held in light of recent hemorrhagic CVA due to rupture of aneurysm PICA Inflammatory polyarthropathy (Chronic) CABRERA (nonalcoholic steatohepatitis) (Chronic) Restless leg syndrome (Chronic) Left atrial enlargement (Chronic) Persistent atrial fibrillation (Chronic) normally on Eliquis DDD (degenerative disc disease), lumbar (Chronic) Segmental and somatic dysfunction of thoracic region (Chronic) Segmental and somatic dysfunction of pelvic region (Chronic) Segmental and somatic dysfunction of lumbar region (Chronic) Nonischemic cardiomyopathy (Chronic) Echocardiogram in June 2019 showed a 55% ejection fraction with no wall motion abnormalities. There was mild concentric left ventricular hypertrophy. The left ventricular systolic function had improved from the prior study. Hyperlipidemia (Chronic) Essential (primary) hypertension (Chronic) Medical History: Medical History (Last Reviewed 05/09/20 @ 14:[address] Taisha Mcnulty, ) Persistent atrial fibrillation (Chronic) I48.1 normally on Eliquis Nonischemic cardiomyopathy (Chronic) I42.8 Echocardiogram in June 2019 showed a 55% ejection fraction with no wall motion abnormalities. There was mild concentric left ventricular hypertrophy. The left ventricular systolic function had improved from the prior study. Hyperlipidemia (Chronic) E78.5 Essential (primary) hypertension (Chronic) I10 Bipolar disorder F31.9 COPD (chronic obstructive pulmonary disease) J44.9 DDD (degenerative disc disease) GERD (gastroesophageal reflux disease) K21.9 Morbid obesity E66.01 Non-alcoholic cirrhosis K74.60 Obstructive sleep apnea G47.33 Scoliosis of lumbar spine M41.9 Type 2 diabetes mellitus E11.9 Cerebral aneurysm without rupture I67.1 Left PICA Coiling Allergies morphine Allergy (Verified 02/27/20 13:25) Itching nifedipine [From Procardia] Adverse Reaction (Verified 02/27/20 13:25) Causes elevated BP Home Medications: Ambulatory Orders Medication Instructions Recorded fluoxetine 40 mg capsule 40 mg PO DAILY 12/29/17 albuterol sulfate 90 mcg/actuation 2 puff INHALATION Q4H PRN 30 Days 04/13/19 aerosol inhaler #36 g clopidogrel 75 mg tablet 75 mg PO DAILY 04/13/19 lamotrigine 150 mg tablet 200 mg PO BID 04/13/19 Pantoprazole Sodium [Protonix] 40 mg PO DAILY 08/08/19 Aspirin [Aspirin, Baby] 81 mg PO DAILY 11/29/19 apixaban 5 mg tablet 5 mg PO BID #180 tab 11/29/19 Acetaminophen 650 mg PO Q4H PRN PRN 05/08/20 Atorvastatin Calcium [Lipitor] 20 mg PO QHS 05/08/20 Cholecalciferol (VIT D3) 50,000 units PO QWEEK 05/08/20 Diltiazem CD [Cardizem CD] 120 mg PO DAILY 05/08/20 Gabapentin [Neurontin] 400 mg PO BID 05/08/20 Multivit with Iron,Minerals 1 tab PO DAILY 05/08/20 Vitamin E 400 units PO DAILY 05/08/20 traZODone [Desyrel] 100 mg PO QHS 05/08/20 Surgical History: Surgical History (Last Reviewed 05/09/20 @ 14:[address] Taisha Mcnulty DO) History of hysterectomy Z90.710 vaginal fistula repair History of carpal tunnel release Z98.890 History of tonsillectomy and adenoidectomy Z98.890 History of total left knee replacement (TKR) Z96.652 History of total right knee replacement (TKR) Z96.651 Hx of cholecystectomy Z90.49 Surgical History: - - T+A, Cholecystectomy, Hysterectomy, Vaginal fistula repairs, L TKR, Bunion/hammertoe RLE, Carpal tunnel BL. Coiling of L PICA on 04/25/[address] 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 Taisha Mcnulty DO) Mother Breast cancer Diabetes Brother Cancer History Items: Diabetes Paternal Family History: Family History (Last Reviewed 05/09/20 @ 14:[address] Taisha Mcnulty DO) Mother Breast cancer Diabetes Brother Cancer History Items: Cancer Review of Systems Constitutional: Reports: Weakness - generalized. Denies: Chills, Fever, Weight Change Eyes: Reports: Double vision - she tells me with the R eye.......goes away when she covers the left eye HEENT: Denies: Difficulty Hearing, Difficulty Swallowing, Head Aches, Nasal Congestion, Sinus Congestion, Sinus Drainage, Sore Throat Cardiovascular: Reports: Edema - this is chronic and she has a hx of chronic venous insufficiency of BL LE's. Denies: Chest Pain, Palpitations Respiratory: Denies: Cough, Shortness of Breath, Shortness of breath at rest, Sputum production Gastrointestinal: Denies: Abdominal Pain, Constipation, Diarrhea, Nausea, Vomiting Genitourinary: Denies: Dysuria, Frequency, Incontinence Gynecological: Denies: Breast symptoms, Vaginal discharge Musculoskeletal: Denies: Joint Pain, Joint Tenderness, Muscle pain Skin: Reports: Dryness. Denies: Jaundice, Rash, Wounds Neurological: Reports: Balance problems, Double vision - this is new since recent stroke, Incoordination, Numbness - on the left side, Tremor - of her hands sometimes. Denies: Change in Speech, Slurred speech, Confusion, Difficulty swallowing, Focal weakness, Headaches, Tingling, Seizures Psychiatric: Denies: Anxiety, Depression, Homicidal Ideations, Suicidal Ideations Endocrine: Denies: Change in Body Habitus, Hx of Thyroiditis Hematologic/ Lymphatic: Denies: Easy Bruising, Easy Bleeding, Hx of blood clot VTE Information - Inpt Only VTE Present on Admission: No VTE Mechan Device Prophylaxis: SCD's, Knee High BECCA Hose VTE Pharm Prophylaxis ordered?: No Reason prophylaxis not ordered:: Treatment Not Indicated - CLopidogrel and Eliquis are on hold due to recent SAH and interventricular hemorrhage after coiling of the L PICA on 04/25/20 Patient Problems: Active and Suspected Problems (Last Updated 11/30/19 @ 07:[address] Fariha Cote MD) Physical debility (Acute) due to hemorrhagic CVA due to recurrent left PIC Awith coiling done at [facility] by Dr. Cope Hemorrhagic cerebrovascular accident (CVA) (Acute) due to ruptured aneursym Lt PICA on 04/26/20 Status post coil embolization of cerebral aneurysm (Acute) on 04/25/[address] Cope at [facility] Vitamin D deficiency (Acute) Diplopia (Acute) Subarachnoid hemorrhage due to ruptured aneurysm (Acute) acute -associated with interventricular hemorrage on 04/26/20 1 day after coiling of the L PICA (04/25/20) - Physical Exam Vitals/I&O's: Vital Signs Temp Pulse Resp BP Pulse Ox 98 F 98 16 149/80 H 93 05/09/20 07:25 05/09/20 07:25 05/09/20 07:25 05/09/20 07:25 05/09/20 07:25 Oxygen Delivery Method Room Air Weight: 286 lb 15.999 oz Body Mass Index (BMI) 43.6 Intake and Output for Last 24 Hours 05/07/20 05/08/20 05/09/20 23:59 23:59 23:59 Intake Total 200 / 200 240 / 240 Balance 200 / 200 240 / 240 General: Alert, Oriented x3, Cooperative, No apparent distress, Well developed, Well nourished HEENT: Atraumatic, PERRLA, EOMI, Normocephalic, - - has diplopia with the R eye that disappears when she covers the left eye Oral: Dry Mucosa Neck: Supple, No JVD, Negative Carotid Bruits, No Nodes, No Nuchal Rigidity, Trachea Midline, - - Carotids have brisk upstroke and good pulse volume bilaterally Lungs: Clear to auscultation, Diminished - harry in the bases with no rhonchi, wheezes or rales. No conversational dyspnea, not tachypneic, no accessory muscle use. Cardiovascular: Normal S1, Normal S2, No murmurs, Irregular Rate - Resting heart rate is in the high 90s and she is in atrial fibrillation., No rub noted, No Gallop Abdomen: Bowel Sounds Present, Soft, Non Tender, Non-Distended, Obese Extremities: No clubbing, No cyanosis, Capillary Refill Less than 3 Seconds, No Calf Tenderness, Edema - of both distal LE's .....BECCA hose are in place Skin: No rashes, No breakdown, - - multiple puncture sites R neck due to central line Musculoskeletal: No Tenderness to Palpation of Joints or Extremities, No Muscle Wasting Neurological: Cranial nerves II-XII grossly intact, - - LOC Alert: 0=alert LOC/Orientation: 0=both correct How old: said 62 and she is actually 64 What month: May correct LOC Commands: 0=obeys both Opens eyes: yes Make a fist: yes Best Gaze (monyitzyessi) : 0=normal Visual kathleen: 0= no visual loss Facial Paresis: none Dysarthria: no Best Language: 0 = no aphasia Motor Left ARM : 1 some drift Motor Left LE with some mild drift Motor Right ARM: 1 with mild drift Motor Right leg LE - no drift Limb ataxia: absent Sensory: 1....mild to moderate loss of sensation R arm and leg Neglect: none Babinski: did not check Psych/Mental Status: Normal Affect, Appropriate Laboratory Results 05/09/20 05:35: WBC 7.9, RBC 3.93 L, Hgb 11.1 L, Hct 36.1 L, MCV 91.9, MCH 28.2, MCHC 30.7 L, RDW Std Deviation 53.1 H, RDW Coeff of Eric 15.8 H, Plt Count 270, MPV 9.9, Immature Gran % (Auto) 1.100 H, Neut % (Auto) 69.3, Lymph % (Auto) 16.9 L, Anson % (Auto) 7.5, Eos % (Auto) 4.7, Baso % (Auto) 0.5, Absolute Neuts (auto) 5.5, Absolute Lymphs (auto) 1.33, Nucleated RBC % 0 05/09/20 05:35: Sodium 142, Potassium 3.8, Chloride 106, Carbon Dioxide 30.0, Anion Gap 6, BUN 14, Creatinine 0.68, Estim Creat Clear Calc 83.20, Est GFR (MDRD) Af Amer 111, Est GFR (MDRD) Non-Af 91, BUN/Creatinine Ratio 20.4 H, Glucose 119 H, Calcium 8.6, Phosphorus 3.0, Magnesium 2.2, Total Bilirubin 0.30, AST 12 L, ALT 17, Alkaline Phosphatase 82, Total Protein 5.8 L, Albumin 2.7 L, Globulin 3.1, Albumin/Globulin Ratio 0.9 Current Medications Acetaminophen (Tylenol) 650 mg PO Q4H PRN PRN PRN Reason: Pain Score 1-10/10 Last Admin: 05/08/20 20:58 Dose: 650 mg Documented by: Albuterol Sulfate (Ventolin Aerosols) 2.5 mg INHALATION Q4H PRN PRN Reason: SOB/WHEEZING Aspirin (Aspirin, Baby) 81 mg PO DAILYCM [facility] Last Admin: 05/09/20 07:53 Dose: 81 mg Documented by: Atorvastatin Calcium (Lipitor) 20 mg PO QHS [facility] Last Admin: 05/08/20 20:47 Dose: 20 mg Documented by: Bisacodyl (Dulcolax) 10 mg RECTAL .PRN X 1 PRN PRN Reason: Constipation Calamine/Phenol (Calmoseptine Ointment) 1 applic TOPICAL BID [facility]; Protocol Last Admin: 05/09/20 07:55 Dose: 1 applicatio Documented by: Diltiazem HCl (Cardizem Cd) 120 mg PO DAILY [facility] Last Admin: 05/09/20 07:53 Dose: 120 mg Documented by: Ergocalciferol (Vitamin D) 50,000 unit PO Leal [facility] Fluoxetine HCl (Prozac) 40 mg PO DAILY [facility] Last Admin: 05/09/20 07:52 Dose: 40 mg Documented by: Gabapentin (Neurontin) 400 mg PO BID [facility] Last Admin: 05/09/20 07:53 Dose: 400 mg Documented by: Lamotrigine (Lamictal) 200 mg PO BID [facility] Last Admin: 05/09/20 07:53 Dose: 200 mg Documented by: Magnesium Hydroxide (Milk Of Magnesia) 30 ml PO .PRN X 1 PRN PRN Reason: Constipation Multivitamins/Minerals (Multivitamin With Minerals (Bkc)) 1 tablet PO DAILY@0800 [facility] Last Admin: 05/09/20 07:53 Dose: 1 tablet Documented by: Nystatin (Mycostatin Powder) 1 applic TOPICAL BID [facility]; Protocol Last Admin: 05/09/20 07:55 Dose: 1 applicatio Documented by: Pantoprazole Sodium (Protonix) 40 mg PO DAILY [facility] Last Admin: 05/09/20 07:53 Dose: 40 mg Documented by: Senna/Docusate Sodium (Senokot-S, Sena-Colace) 2 tablet PO BID [facility] Last Admin: 05/09/20 07:52 Dose: 2 tablet Documented by: Trazodone HCl (Desyrel) 100 mg PO QHS [facility] Last Admin: 05/08/20 20:48 Dose: 100 mg Documented by: Vitamin E (Vitamin E) [facility] Last Admin: 05/09/20 07:53 Dose: 400 units Documented by: Assessment/Plan All Active Problems (Last Updated 11/30/19 @ 07:[address] Fariha Cote MD) Physical debility (Acute) Hemorrhagic cerebrovascular accident (CVA) (Acute) Status post coil embolization of cerebral aneurysm (Acute) Vitamin D deficiency (Acute) Diplopia (Acute) Subarachnoid hemorrhage due to ruptured aneurysm (Acute) Sepsis (Resolved) UTI (urinary tract infection) (Resolved) Acute exacerbation of chronic obstructive pulmonary disease (COPD) (Resolved) Acute fall (Resolved) Allergic reaction due to correct medicinal substance properly administered (Resolved) Atrial fibrillation with RVR (Resolved) CAP (community acquired pneumonia) (Resolved) Cellulitis of lower leg (Resolved) History of MRSA infection (Resolved) Hypokalemia (Resolved) Infected open wound (Resolved) Influenza B (Resolved) Laceration of head (Resolved) MRSA (methicillin resistant Staphylococcus aureus) infection (Resolved) Metabolic alkalosis (Resolved) Non-healing wound of lower extremity (Resolved) Nonhealing nonsurgical wound limited to breakdown of skin (Resolved) Parainfluenza virus bronchopneumonia (Resolved) Pneumonia (Resolved) Sinusitis (Resolved) Syncope and collapse (Resolved) Impressions 1. Debility due to SAH and IV hemorrhage on 04/26/20 following elective coiling of the L PICA aneurysm on 04/25/20 2. SAH and intraventricular hemorrhage on 04/26/20 which I suspect is due to rupture of the aneurysm of leaking after coiling 3. Coiling of left posterior inferior cerebral artery (PICA) on 04/25/[address] Cope at [facility] on 4. Septic shock secondary to urinary tract infection with Staphylococcus simulans at [facility]-resolved. Required pressors for hypotension and junctional rhythm. 5. Recent urinary tract infection secondary to Staphylococcus simulans- resolved. Patient did have a Dubois catheter while at [facility] ter. 6. Mild normochromic normocytic anemia-more likely than not secondary to intracerebral hemorrhage and frequent blood draws 7. Diplopia with the right eye 8. generalized weakness due to prolonged admission to [facility] (2 weeks) 9. Chronic medical conditions: Hypertension/hyperlipidemia/morbid obesity/pulmonary hypertension/left atrial enlargement/recovered nonischemic cardiomyopathy with recent ejection fraction of 68%/resolved left ventricular hypertrophy/pulmonary hypertension/bipolar disorder/chronic urinary incontinence on Toviaz/history of MRSA infection/persistent atrial fibrillation/chronic anticoagulation with Eliquis/degenerative disc disease/tobacco dependence in remission/alcohol dependence in remission/poly-arthropathy/CABRERA/vitamin D deficiency/restless leg syndrome -complicate care, management and prognosis. Resting HR is in the high 90's and I suspect this is due to IV volume depletion..........BUN/CREAT ratio is 20.4. PLAN PT for gait stability OT for ADL's ST for evaluation - higher level executive functioning. Analgesics as needed Bowel protocol Fall precautions Assess for Anxiety/Depression GI prophylaxis with Protonix 40 mg p.o. daily DVT prophylaxis with SCDs and BECCA hose. No anticoagulation for 3 weeks until a repeat CT of the brain can be done to make sure the bleed is resolving Follow up with Dr. Cope in [address] Grimaldo following DC from [facility] All lab was reviewed. The FBS is 119 and her mother had a hx of DM so will check a HGBA1C in the AM and also a lipid panel May have to patch 1 eye to help with diplopia and balance NS IV x 2 liters if nursing is able to start an IV repeat CTB in 3 weeks and if there is no new bleeding and the bleeding is resolving will start Eliquis at that time - May 28 or rst. Encourage weight loss Inpatient E&M: 65687 Init Hosp L3
--- NOTE | 2020-05-09 15:21 | PCM.RU.PYE ---
Admission Information Primary Diagnosis:: Debility secondary to recent intraventricular cerebral hemorrhage and subarachnoid hemorrhage secondary to cerebral aneurysm Status Changes from Prescreening?: No changes Identified Actual Problem List:: Bleeding, Infection - Had septic shock secondary to urinary tract infection while at [facility], UTI, Falls, Skin Intergrity, Cognitve Impr/Memory Loss, Mobility Impaired, Self Care Deficit, Alteration-Leisure Activ. Potential Problem List:: DVT, Bleeding, Infection, UTI, Aspiration, Falls, Skin Integrity, Depression Risk of Complications DVT: BECCA Hose, Sequential Compression Device Bleeding: Monitor Lab Values, Nursing to Teach Precautions for anti-coagulation therapy., Wound, if applicable, to be assessed every shift., Stroke patients assessed for lethargy or change in status. Infection: Clinical Staff to Monitor for S/S of infection:, S/S of infection include fever, redness, warmth, etc. Urinary Tract Infection: Monitor for frequency, burning, discomfort, or incontinence., Nursing will obtain urine sample for urinalysis and C&S when ordered. Aspiration: Clinical staff will monitor for coughing, drooling, congestion., Speech will evaluate swallowing and dsyphasia., Nursing will monitor patient swallowing during meals. Falls: Patient will be evaluated for Fall Precautions, Patient will be placed on Fall Precautions as indicated per protocol. Skin Breakdown: Nursing will assess skin daily using assessment tool., Nursing will place on Skin Breakdown Precautions as indicated. Pain: Clinical staff will assess patient's pain level per protocol., Medications will be given, if needed, and the pain level reassessed., Other methods: Massage, distraction, decrease stimulus, etc. used PRN. Plan of Care Patient requires physician specializing in physical medicine and rehab oversight to provide close medical supervision of rehab issues including: Pain Management, Sleep Problems, Bowel and Bladder, Medical and co-morbidity Management, DVT prophylaxis, Rehabilitation Leadership, Coordination of treatment team Patient needs Physical Therapy: For a minimum of 1 hour, At least 5 out of 7 days Patient needs Physical Therapy to improve:: Mobility, Mobility, Mobility, Strengthening, Transfers, Stretching, ROM, Endurance, Stairs, Gait, Balance Patient needs Occupational Therapy: For a minimum of 1 hour, At least 5 out of 7 days Patient needs Occupational Therapy to improve ADL's incl.: Eating, Grooming, Bathing, Dressing, Toileting, Toilet transfers, Community Reintegration, Higher functioning activities, Household tasks, Adaptive Equipment, Splinting, Other activities as determined Patient requires speech therapy: For a minimum of 1 hour, At least 5 out of 7 days Patient requires speech therapy for: Swallowing, Cognition, Language Skills, Compensatory Strategies Patient requires 24/ Rehabilitation Nursing for: Pain Issues, Identifying and preventing risk factors, Monitoring and reporting current medical conditions, Assisting with ambulation, transfer, and all ADL's, Teaching patients about disease process and medications, Family teaching, Providing safe environment, Bowel and Bladder Issues, Skin integrity, Medication Management Patient needs Service Person/ Case Management for: Discharge Planning, Arranging Home Equipment or Services, Family Interventions Patient needs Dietary and Nutrition Services for: Adequate Nutrition, Nutritional Supplements, Nutritional Education Goals Patient will remain: free from falls, or injury at time of discharge. Patient will perform bed mobility at: MOD I level of assist. Patient will complete transfers from bed to chair at: MOD I level of assist. Patient will ambulate: 100 feet, with MOD I assist, with LRD Patient will complete upper body dressing at: MOD I level of assist. Patient will complete lower body dressing at: MOD I level of assist. Patient will complete toileting at: MOD I level of assist. Patient will perform bathing at: MOD I level of assist. Patient will complete grooming at: MOD I level of assist. Patient will complete home management skills at: MOD I level of assist. Patient will achieve: 12 stairs, at MOD I assist Patient will have pain level of: of 3 or less Patient's skin will: remain intact, free from infection. Patient will receive: adequate nutrition. Discharge Planning Pt Prognosis for Sig. Practical Improv. w/in Reasonable Time: Good Estimated Length of stay (days): 21 Anticipated D/C Destination: Home with Home Health
[2020-05-09] MEDS: 0.9% Normal Saline 1,000 ML 100 ML IV (18:00)
[2020-05-09 18:54] VITALS: BP 133/95; PULSE 105; RESP 18; TEMP 37.2; O2SAT 94
[2020-05-09 20:55] VITALS: PULSE 102; O2SAT 95
[2020-05-09] MEDS: Atorvastatin Calcium 20 MG Tablet PO (22:06)
[2020-05-09] MEDS: traZODone 100 MG Tablet PO (22:06)
[2020-05-09] MEDS: Acetaminophen 325 MG Tablet 650 MG PO (22:08)
[2020-05-09 22:55] VITALS: BMI 43.6
[2020-05-10] MEDS: 0.9% Normal Saline 1,000 ML 100 ML IV (04:19)
[2020-05-10 06:21] LABS: Cholesterol 108 mg/dL (200); High Density Lipoprotein 39 mg/dL; Triglycerides 99 mg/dL; Very Low Density Lipoprotein 20 mg/dL (5-40)
[2020-05-10 07:39] VITALS: O2SAT 97
[2020-05-10 07:47] VITALS: BP 136/91; PULSE 91; RESP 16; TEMP 36.9; O2SAT 96
[2020-05-10] MEDS: Gabapentin 400 MG Capsule PO ×2 (07:57→22:04)
[2020-05-10] MEDS: Pantoprazole Sodium 40 MG Tablet PO (07:57)
[2020-05-10] MEDS: Vitamin E 400 UNITS Capsule PO (07:57)
[2020-05-10] MEDS: Menthol/Lanolin/Calamine/Znox 113 GM Tube 1 APPLIC TOPICAL ×2 (07:58→22:06)
[2020-05-10] MEDS: Aspirin 81 MG TAB.CHEW PO (07:58)
[2020-05-10] MEDS: dilTIAZem CD 120 MG Capsule PO (07:58)
[2020-05-10] MEDS: Multivitamins,Ther W-Minerals Tablet 1 TABLET PO (07:58)
[2020-05-10] MEDS: FLUoxetine 20 MG Capsule 40 MG PO (07:59)
[2020-05-10] MEDS: lamoTRIgine 100 MG Tablet 200 MG PO ×2 (07:59→22:04)
[2020-05-10] MEDS: Senna/Docusate Sodium 1 Tablet 2 TABLET PO ×2 (08:01→22:04)
[2020-05-10] MEDS: Acetaminophen 325 MG Tablet 650 MG PO ×2 (08:01→22:04)
--- NOTE | 2020-05-10 08:59 | PCM.PN.BLA ---
Progress Note Afebrile VSS-blood pressure is not adequately controlled. The systolic blood pressure is nearly always above 130 and the diastolic is nearly always above 80. Heart rate is in the 90s to low 100s. Maintaining appropriate oxygen saturation on RA while awake. There were no significant desaturations on the overnight trending pulse ox. Oral intake is fair She is incontinent of urine Last bowel movement was today Discussed with nursing - no problems that need addressed Reviewed the PT/OT/ST notes Medication list reviewed. All the lab from today was personally reviewed. Hemoglobin A1c is 5.6. Hemoglobin is mildly decreased at 11.1 with an MCV of 91.9 and a normal MCHC as well. Platelets are within normal limits. Sodium is 142 and the potassium is 3.8. Serum bicarb is 30. The BUN is 14 and the creatinine is 0.68. LFTs are unremarkable. Total cholesterol is 108 with an LDL of 49 and a low HDL at 39. Triglycerides are 39. alert, appropriate, NAD, sitting in the recliner Lungs - diminished but CTA AF with high resting HR, no gallop abd - obese, NT, soft with good BS's throughout edema - better with the BECCA hose no calf tenderness Impressions 1. severe post stroke debility with inability to ambulate. Inability to perform ADL's and cognitive dysfunction 2. dysphagia - this Seems to predate the recent CVA on 04/26/20 3. HTN - not adequately controlled 4. Low HDL 5. morbid obesity Continue therapy mechanical soft with thin liquids and close supervision Increase the Cardizem to BID and continue to monitor VS's BiD STROKE Vital Signs/Narrative: Vital Signs Temp Pulse Resp BP Pulse Ox 05/10/20 07:47 98.4 F 91 16 136/91 H 96 05/10/20 07:39 97 Inpatient E&M: [id number] Subs Hosp L2
[2020-05-10 11:28] LABS: Hemoglobin A1c 5.6 % (3.8-5.6)
[2020-05-10] MEDS: Nystatin Powder 15gm Bottle 1 APPLIC TOPICAL ×2 (11:36→22:06)
[2020-05-10 15:57] VITALS: BMI 43.6
--- NOTE | 2020-05-10 16:38 | CASEMGMT ---
Social Work SW completed PHQ9 depression screen due to new dx of depression. Pt score of 8 and pt admits to feeling depressed. [facility] seeing a therapist every two weeks and a psychiatrist every three months. She is also taking medication which pt states is helpful. SW discussed with pt that CVA can enhance feelings of depression and encouraged pt to verbalize feelings to staff or physician should she start to feel more down. SW to continue to follow. TAVIA Ramirez
[2020-05-10 19:55] VITALS: BP 121/82; PULSE 96; RESP 18; TEMP 36.4; O2SAT 98
[2020-05-10] MEDS: traZODone 100 MG Tablet PO (22:04)
[2020-05-10] MEDS: Atorvastatin Calcium 20 MG Tablet PO (22:04)
[2020-05-10] MEDS: 0.9% Saline Lock 10 ML Syringe IV (22:05)
[2020-05-11 00:53] VITALS: BMI 43.6
[2020-05-11] MEDS: Nystatin Powder 15gm Bottle 1 APPLIC TOPICAL ×2 (05:27→21:03)
[2020-05-11] MEDS: Aspirin 81 MG TAB.CHEW PO (07:31)
[2020-05-11] MEDS: Vitamin E 400 UNITS Capsule PO (07:32)
[2020-05-11] MEDS: Multivitamins,Ther W-Minerals Tablet 1 TABLET PO (07:32)
[2020-05-11] MEDS: Menthol/Lanolin/Calamine/Znox 113 GM Tube 1 APPLIC TOPICAL ×2 (07:33→21:02)
[2020-05-11] MEDS: Gabapentin 400 MG Capsule PO ×2 (07:33→21:01)
[2020-05-11] MEDS: Pantoprazole Sodium 40 MG Tablet PO (07:33)
[2020-05-11] MEDS: dilTIAZem CD 120 MG Capsule PO ×2 (07:33→21:02)
[2020-05-11] MEDS: lamoTRIgine 100 MG Tablet 200 MG PO ×2 (07:33→21:02)
[2020-05-11] MEDS: Acetaminophen 325 MG Tablet 650 MG PO ×2 (07:34→21:00)
[2020-05-11] MEDS: FLUoxetine 20 MG Capsule 40 MG PO (07:34)
[2020-05-11] MEDS: Senna/Docusate Sodium 1 Tablet 2 TABLET PO (07:34)
[2020-05-11 07:42] VITALS: O2SAT 97
[2020-05-11 08:49] VITALS: BP 144/95; PULSE 86; RESP 16; TEMP 36.9; O2SAT 96
[2020-05-11 09:11] VITALS: BMI 43.6
[2020-05-11] MEDS: 0.9% Saline Lock 10 ML Syringe IV ×2 (15:36→23:01)
[2020-05-11 19:32] VITALS: BP 136/77; PULSE 100; RESP 16; TEMP 36.6; O2SAT 96
[2020-05-11] MEDS: traZODone 100 MG Tablet PO (21:02)
[2020-05-11] MEDS: Atorvastatin Calcium 20 MG Tablet PO (21:02)
--- NOTE | 2020-05-11 22:24 | NURSING ---
PT TALKING ON PHONE, TV IS ON. PT APPEARS RELAXED.
[2020-05-12] MEDS: Nystatin Powder 15gm Bottle 1 APPLIC TOPICAL ×2 (06:20→21:47)
[2020-05-12 07:42] VITALS: BP 124/78; PULSE 86; RESP 16; TEMP 36.6; O2SAT 92
[2020-05-12] MEDS: dilTIAZem CD 120 MG Capsule PO ×2 (08:25→21:48)
[2020-05-12] MEDS: Aspirin 81 MG TAB.CHEW PO (08:25)
[2020-05-12] MEDS: Vitamin E 400 UNITS Capsule PO (08:25)
[2020-05-12] MEDS: Pantoprazole Sodium 40 MG Tablet PO (08:25)
[2020-05-12] MEDS: lamoTRIgine 100 MG Tablet 200 MG PO ×2 (08:25→21:48)
[2020-05-12] MEDS: FLUoxetine 20 MG Capsule 40 MG PO (08:25)
[2020-05-12] MEDS: Gabapentin 400 MG Capsule PO ×2 (08:25→21:47)
[2020-05-12] MEDS: Multivitamins,Ther W-Minerals Tablet 1 TABLET PO (08:25)
[2020-05-12] MEDS: Acetaminophen 325 MG Tablet 650 MG PO ×3 (08:29→21:59)
[2020-05-12 08:30] VITALS: PULSE 84
[2020-05-12] MEDS: Menthol/Lanolin/Calamine/Znox 113 GM Tube 1 APPLIC TOPICAL ×2 (08:35→21:49)
[2020-05-12 13:10] VITALS: BMI 43.6
[2020-05-12 19:02] VITALS: BP 116/70; PULSE 88; RESP 16; TEMP 36.6; O2SAT 97
[2020-05-12 20:51] VITALS: BMI 43.6
[2020-05-12] MEDS: 0.9% Saline Lock 10 ML Syringe IV (21:46)
[2020-05-12] MEDS: Atorvastatin Calcium 20 MG Tablet PO (21:48)
[2020-05-12] MEDS: traZODone 100 MG Tablet PO (21:48)
[2020-05-12 22:00] VITALS: PULSE 88
[2020-05-13] MEDS: Nystatin Powder 15gm Bottle 1 APPLIC TOPICAL ×2 (05:48→22:58)
[2020-05-13] MEDS: Acetaminophen 325 MG Tablet 650 MG PO ×2 (05:50→16:31)
[2020-05-13 07:41] VITALS: BP 147/81; PULSE 75; RESP 18; TEMP 36.7; O2SAT 95
[2020-05-13] MEDS: Pantoprazole Sodium 40 MG Tablet PO (10:09)
[2020-05-13] MEDS: Multivitamins,Ther W-Minerals Tablet 1 TABLET PO (10:09)
[2020-05-13] MEDS: FLUoxetine 20 MG Capsule 40 MG PO (10:09)
[2020-05-13] MEDS: Gabapentin 400 MG Capsule PO ×2 (10:09→21:36)
[2020-05-13] MEDS: Vitamin E 400 UNITS Capsule PO (10:09)
[2020-05-13] MEDS: dilTIAZem CD 120 MG Capsule PO (10:09)
[2020-05-13] MEDS: Aspirin 81 MG TAB.CHEW PO (10:09)
[2020-05-13] MEDS: lamoTRIgine 100 MG Tablet 200 MG PO ×2 (10:09→21:35)
[2020-05-13] MEDS: Menthol/Lanolin/Calamine/Znox 113 GM Tube 1 APPLIC TOPICAL ×2 (10:11→21:35)
[2020-05-13 14:31] VITALS: BMI 43.6
[2020-05-13] MEDS: 0.9% Saline Lock 10 ML Syringe IV ×2 (16:37→21:31)
[2020-05-13 18:49] VITALS: BP 137/89; PULSE 85; RESP 16; TEMP 36.7; O2SAT 98
--- NOTE | 2020-05-13 19:10 | NURSING ---
Refused to get out of bed for staff all day and requested to rest on her therapy day off.
--- NOTE | 2020-05-13 19:27 | PCM.PN.BLA ---
Progress Note Afebrile VSS Maintaining appropriate oxygen saturation on RA Oral intake is fair to good She continues to be incontinent of urine. Discussed with nursing - no problems that need addressed Reviewed the PT/OT/ST notes Medication list reviewed. No complaints to me at this time. Still needing a rachel to go from sitting to standing. Stood in the parallel bars for 1 min yesterday with CGA. Now using an eye patch which helps with vision and dysequilibrium due to diplopia alert, appropriate, NAD, sitting in the recliner Lungs - diminished but CTA AF with high resting HR, no gallop abd - obese, NT, soft with good BS's throughout edema - better with the BECCA hose no calf tenderness no neglect. not as dizzy since the eye patch was ordered Impressions 1. severe post stroke debility with inability to ambulate, Inability to perform ADL's and cognitive dysfunction 2. dysphagia - this Seems to predate the recent CVA on 04/26/20 ....currently on mechanical soft and thin liquids - may need a barium esophagram at some point 3. HTN - not adequately controlled...cardizem was increased to BID and there has not been significant improvement. 4. Low HDL 5. morbid obesity Increase the Cardizem to 180 mg BID and continue to monitor BP BID Continue therapy STROKE Vital Signs/Narrative: Vital Signs Temp Pulse Resp BP Pulse Ox 05/13/20 18:49 98.1 F 85 16 137/89 H 98 Inpatient E&M: 29995 Subs Hosp L1
[2020-05-13 21:23] VITALS: BMI 43.6
[2020-05-13] MEDS: dilTIAZem CD 180 MG Capsule PO (21:34)
[2020-05-13] MEDS: traZODone 100 MG Tablet PO (21:34)
[2020-05-13] MEDS: Atorvastatin Calcium 20 MG Tablet PO (21:35)
[2020-05-14] MEDS: Acetaminophen 325 MG Tablet 650 MG PO ×2 (05:44→21:20)
[2020-05-14] MEDS: Nystatin Powder 15gm Bottle 1 APPLIC TOPICAL ×2 (05:54→22:45)
[2020-05-14 07:23] VITALS: BP 134/83; PULSE 78; RESP 16; TEMP 36.6; O2SAT 96
[2020-05-14] MEDS: lamoTRIgine 100 MG Tablet 200 MG PO ×2 (10:11→21:34)
[2020-05-14] MEDS: Vitamin E 400 UNITS Capsule PO (10:11)
[2020-05-14] MEDS: Pantoprazole Sodium 40 MG Tablet PO (10:11)
[2020-05-14] MEDS: Aspirin 81 MG TAB.CHEW PO (10:11)
[2020-05-14] MEDS: FLUoxetine 20 MG Capsule 40 MG PO (10:11)
[2020-05-14] MEDS: dilTIAZem CD 180 MG Capsule PO ×2 (10:11→21:34)
[2020-05-14] MEDS: Multivitamins,Ther W-Minerals Tablet 1 TABLET PO (10:11)
[2020-05-14] MEDS: Gabapentin 400 MG Capsule PO ×2 (10:11→21:34)
[2020-05-14] MEDS: Menthol/Lanolin/Calamine/Znox 113 GM Tube 1 APPLIC TOPICAL ×2 (10:13→21:35)
--- NOTE | 2020-05-14 10:25 | CASEMGMT ---
Social Work IDT met with patient for Team Meeting. Discussed patient's progress in therapy. Pt is standing in // bars for 1 min, completing slideboard transfers with therapy, rachel lift with nursing, standing for 1-2 mins with OT at mod x1, EOB max x2, grooming set up while seated and UE dressing, pt can thread pants over feet while seated but max x2 to stand to complete LE dressing, ambulating in w/c. ST working with attention, memory, word finding, fatigues quickly. Pt remains on [facility] soft diet and working to trail solid foods. opt is very motivated. The goal is for pt to DC home with S.O./alone and PLOF. Explained [employer] insurance with NRD 05/14 and continued stay is not guaranteed. Will ReTeam next week. Will continue t follow. Mercedes Faulkner, RELATIONSHIP SPECIALIST PIECE MARKER [employer]
--- NOTE | 2020-05-14 11:51 | PN_ITS ---
Progress Note Pat was seen on team rounds today. There was no family present or family available to communicate by phone. She is afebrile since admission. VSS but the BP is still mildly elevated.....Cardizem was increased to 180 mg BID yesterday. Good oral intake very motivated to do therapy Overnight trending pulse ox negative for desaturations < 90% urge incontinence of urine. She takes Toviaz at home. she is c/o neck pain today and also low back pain. The low back pain is chronic. Denies MARINO. No change in mental status. No cough or sore throat. Denies SOB alert, oriented x3, no apparent distress, sitting at the bedside in the recliner. Lungs-diminished but clear to auscultation throughout Heart-regular rate and rhythm, distant heart sounds Abdomen-obese, soft, nontender, nondistended, normal bowel sounds present, no guarding with palpation Trace pretibial edema no calf tenderness no rashes and no breakdown Impressions 1. post stroke debility 2. hemorrhagic CVA 1 days after coiling of an aneurysm 3. COPD 4. HTN - Cardizem just increased yesterday - no change to the antihypertensive regimen today 5. Muscle spasm neck and low back 6. Morbid obesity start Zostrix BID to the posterior neck and the low back. Zanaflex 4 mg at 2100 nightly. continue to monitor the BP closely with a goal BP of <130/80 Inpatient E&M: [id number] [facility] Hosp L2
[2020-05-14] MEDS: Capsaicin 0.025% 1 APPLIC Tube TOPICAL ×2 (14:08→21:33)
[2020-05-14 14:34] VITALS: BMI 43.6
[2020-05-14 18:39] VITALS: BP 106/83; PULSE 69; RESP 18; TEMP 36.8; O2SAT 95
[2020-05-14 21:06] VITALS: BMI 43.6
[2020-05-14] MEDS: tiZANidine HCl 2 MG Tablet 4 MG PO ×2 (21:32→21:35)
[2020-05-14] MEDS: traZODone 100 MG Tablet PO (21:34)
[2020-05-14] MEDS: Atorvastatin Calcium 20 MG Tablet PO (21:34)
[2020-05-14] MEDS: 0.9% Saline Lock 10 ML Syringe IV (21:37)
[2020-05-14 22:00] VITALS: RESP 16
[2020-05-15] MEDS: Acetaminophen 325 MG Tablet 650 MG PO ×4 (04:49→20:24)
[2020-05-15] MEDS: Nystatin Powder 15gm Bottle 1 APPLIC TOPICAL ×2 (04:59→20:23)
[2020-05-15] MEDS: Capsaicin 0.025% 1 APPLIC Tube TOPICAL ×2 (05:52→20:24)
[2020-05-15 07:00] VITALS: BP 111/66; PULSE 61; RESP 16; TEMP 36.8; O2SAT 96
[2020-05-15] MEDS: Pantoprazole Sodium 40 MG Tablet PO (08:35)
[2020-05-15] MEDS: Aspirin 81 MG TAB.CHEW PO (08:35)
[2020-05-15] MEDS: FLUoxetine 20 MG Capsule 40 MG PO (08:35)
[2020-05-15] MEDS: Gabapentin 400 MG Capsule PO ×2 (08:35→20:23)
[2020-05-15] MEDS: Multivitamins,Ther W-Minerals Tablet 1 TABLET PO (08:35)
[2020-05-15] MEDS: lamoTRIgine 100 MG Tablet 200 MG PO ×2 (08:35→20:23)
[2020-05-15] MEDS: Vitamin E 400 UNITS Capsule PO (08:35)
[2020-05-15] MEDS: dilTIAZem CD 180 MG Capsule PO ×2 (08:35→20:22)
[2020-05-15] MEDS: Menthol/Lanolin/Calamine/Znox 113 GM Tube 1 APPLIC TOPICAL ×2 (08:38→20:22)
[2020-05-15 12:27] VITALS: BMI 43.6
[2020-05-15] MEDS: 0.9% Saline Lock 10 ML Syringe IV ×2 (17:58→20:27)
[2020-05-15 19:54] VITALS: BP 119/61; PULSE 68; RESP 16; TEMP 36.9; O2SAT 96
[2020-05-15] MEDS: Atorvastatin Calcium 20 MG Tablet PO (20:23)
[2020-05-15] MEDS: traZODone 100 MG Tablet PO (20:23)
[2020-05-15 23:09] VITALS: BMI 43.6
[2020-05-16] MEDS: Capsaicin 0.025% 1 APPLIC Tube TOPICAL ×2 (05:26→22:08)
[2020-05-16] MEDS: Nystatin Powder 15gm Bottle 1 APPLIC TOPICAL ×2 (05:26→22:10)
[2020-05-16 07:00] VITALS: BP 138/77; PULSE 73; RESP 16; TEMP 36.2; O2SAT 95
[2020-05-16] MEDS: Vitamin E 400 UNITS Capsule PO (08:26)
[2020-05-16] MEDS: Aspirin 81 MG TAB.CHEW PO (08:26)
[2020-05-16] MEDS: Gabapentin 400 MG Capsule PO ×2 (08:26→22:10)
[2020-05-16] MEDS: Acetaminophen 325 MG Tablet 650 MG PO ×3 (08:26→22:10)
[2020-05-16] MEDS: Multivitamins,Ther W-Minerals Tablet 1 TABLET PO (08:26)
[2020-05-16] MEDS: dilTIAZem CD 180 MG Capsule PO ×2 (08:26→22:10)
[2020-05-16] MEDS: FLUoxetine 20 MG Capsule 40 MG PO (08:26)
[2020-05-16] MEDS: Pantoprazole Sodium 40 MG Tablet PO (08:26)
[2020-05-16] MEDS: lamoTRIgine 100 MG Tablet 200 MG PO ×2 (08:26→22:09)
[2020-05-16] MEDS: Menthol/Lanolin/Calamine/Znox 113 GM Tube 1 APPLIC TOPICAL ×2 (10:54→22:10)
[2020-05-16] MEDS: Senna/Docusate Sodium 1 Tablet 2 TABLET PO (12:51)
[2020-05-16 13:06] VITALS: BMI 43.6
--- NOTE | 2020-05-16 13:49 | PCM.PN.BLA ---
Progress Note Afebrile VSS-blood pressure is well controlled. the HR is stable with the increase in the Cardizem Maintaining appropriate oxygen saturation on RA Oral intake is very good She has lost between 6 and 7 lbs since admission and this is more likely than not due to Water loss Still incontinent of urine Discussed with nursing - no problems that need addressed Reviewed the PT/OT/ST notes Medication list reviewed. Pat is c/o frequent urination. At home she is on Toviaz for OAB. she denies SOB, CP, N/V/abdominal pain, dysuria, urgency Alert, pleasant, appropriate, Oriented X 3. Lungs - diminished but CTA, no cough, not tachypneic and no conversational dyspnea HRRR Abd - NT, ND, BS's present No edema, no calf tenderness. No rashes and no skin breakdown Impressions 1. debility post hemorrhagic CVA - after coiling of aneurysm the day before 2. OAB -start tolterodine 3. neck pain due to muscle spasms - better with the Zanaflex at HS and the Zostrix 4. HTN 5. Dysphagia Continue the current meds continue therapy Inpatient E&M: [id number] [facility] Hosp L1
[2020-05-16 22:00] VITALS: BP 124/79; PULSE 75; RESP 16; TEMP 37.1; O2SAT 95; BMI 43.6
[2020-05-16] MEDS: Atorvastatin Calcium 20 MG Tablet PO (22:09)
[2020-05-16] MEDS: traZODone 100 MG Tablet PO (22:09)
[2020-05-16] MEDS: tiZANidine HCl 2 MG Tablet 4 MG PO (22:09)
--- NOTE | 2020-05-17 00:44 | NURSING ---
reviewed and agree with TRAINING PROJECT MANAGER's assessment and functional charting.
[2020-05-17] MEDS: Capsaicin 0.025% 1 APPLIC Tube TOPICAL ×2 (05:51→21:26)
[2020-05-17] MEDS: Nystatin Powder 15gm Bottle 1 APPLIC TOPICAL ×2 (05:53→21:29)
[2020-05-17 08:41] VITALS: BP 136/77; PULSE 60; RESP 18; TEMP 36.4; O2SAT 98
[2020-05-17] MEDS: Menthol/Lanolin/Calamine/Znox 113 GM Tube 1 APPLIC TOPICAL ×2 (08:55→21:29)
[2020-05-17] MEDS: Multivitamins,Ther W-Minerals Tablet 1 TABLET PO (08:56)
[2020-05-17] MEDS: lamoTRIgine 100 MG Tablet 200 MG PO ×2 (08:56→21:22)
[2020-05-17] MEDS: Gabapentin 400 MG Capsule PO ×2 (08:56→21:22)
[2020-05-17] MEDS: dilTIAZem CD 180 MG Capsule PO ×2 (08:56→21:22)
[2020-05-17] MEDS: Vitamin E 400 UNITS Capsule PO (08:56)
[2020-05-17] MEDS: Aspirin 81 MG TAB.CHEW PO (08:57)
[2020-05-17] MEDS: FLUoxetine 20 MG Capsule 40 MG PO (08:57)
[2020-05-17] MEDS: Tolterodine Tartrate 2 MG CAP.SA PO (08:57)
[2020-05-17] MEDS: Pantoprazole Sodium 40 MG Tablet PO (08:57)
[2020-05-17] MEDS: 0.9% Saline Lock 10 ML Syringe IV (09:09)
[2020-05-17 10:02] VITALS: BMI 43.6
--- NOTE | 2020-05-17 10:15 | NURSING ---
Pt refused AM stools stool softeners despite no BM, states she will take stool softeners this evening if she does not have BM today.
[2020-05-17] MEDS: Magnesium Hydroxide 30 ML UDC PO (14:57)
--- NOTE | 2020-05-17 17:16 | NURSING ---
SL removed from rt AC, catheter intact and pt tolerated well.
[2020-05-17 19:47] VITALS: BP 132/92; PULSE 78; RESP 16; TEMP 36.9; O2SAT 96
[2020-05-17] MEDS: Atorvastatin Calcium 20 MG Tablet PO (21:22)
[2020-05-17] MEDS: traZODone 100 MG Tablet PO (21:22)
[2020-05-17] MEDS: tiZANidine HCl 2 MG Tablet 4 MG PO (21:22)
[2020-05-17] MEDS: Senna/Docusate Sodium 1 Tablet 2 TABLET PO (21:24)
[2020-05-17] MEDS: Acetaminophen 325 MG Tablet 650 MG PO (21:24)
[2020-05-18 00:47] VITALS: BMI 43.6
[2020-05-18] MEDS: Capsaicin 0.025% 1 APPLIC Tube TOPICAL ×2 (05:19→21:17)
[2020-05-18] MEDS: Nystatin Powder 15gm Bottle 1 APPLIC TOPICAL ×2 (05:20→21:16)
[2020-05-18] MEDS: Bisacodyl 10 MG Suppository RECTAL (06:04)
[2020-05-18 07:00] VITALS: BP 115/70; PULSE 81; RESP 18; TEMP 36.6; O2SAT 94
[2020-05-18] MEDS: FLUoxetine 20 MG Capsule 40 MG PO (09:32)
[2020-05-18] MEDS: Senna/Docusate Sodium 1 Tablet 2 TABLET PO (09:32)
[2020-05-18] MEDS: dilTIAZem CD 180 MG Capsule PO ×2 (09:33→21:13)
[2020-05-18] MEDS: Gabapentin 400 MG Capsule PO ×2 (09:33→21:14)
[2020-05-18] MEDS: Tolterodine Tartrate 2 MG CAP.SA PO (09:33)
[2020-05-18] MEDS: lamoTRIgine 100 MG Tablet 200 MG PO ×2 (09:33→21:14)
[2020-05-18] MEDS: Multivitamins,Ther W-Minerals Tablet 1 TABLET PO (09:33)
[2020-05-18] MEDS: Pantoprazole Sodium 40 MG Tablet PO (09:33)
[2020-05-18] MEDS: Aspirin 81 MG TAB.CHEW PO (09:33)
[2020-05-18] MEDS: Menthol/Lanolin/Calamine/Znox 113 GM Tube 1 APPLIC TOPICAL ×2 (09:35→21:05)
[2020-05-18] MEDS: Acetaminophen 325 MG Tablet 650 MG PO (09:45)
[2020-05-18] MEDS: Vitamin E 400 UNITS Capsule PO (12:13)
--- NOTE | 2020-05-18 12:21 | NURSING ---
Pt c/o a Headache this morning 9 out of 10. Also states she is lightheaded and cloudy feeling. Tylenol given and now rates pain 7 out of [address] In[address] Mcnulty and she will assess her today.
[2020-05-18 12:52] VITALS: BMI 43.6
--- NOTE | 2020-05-18 13:05 | PCM.RU.PYE ---
Admission Information Actual Problem List:: Bleeding, Infection - Had septic shock secondary to urinary tract infection while at [facility], UTI, Falls, Skin Intergrity, Cognitve Impr/Memory Loss, Mobility Impaired, Self Care Deficit, Alteration-Leisure Activ. Potential Problem List:: DVT, Bleeding, Infection, UTI, Aspiration, Falls, Skin Integrity, Depression
[2020-05-18] MEDS: dexAMETHasone 4 MG Tablet 6 MG PO ×3 (14:49→23:18)
[2020-05-18] MEDS: Magnesium Oxide 400 MG Tablet 800 MG PO (15:03)
[2020-05-18 19:17] VITALS: BP 137/75; PULSE 83; RESP 18; TEMP 37.2; O2SAT 94
[2020-05-18] MEDS: tiZANidine HCl 2 MG Tablet 4 MG PO (21:04)
[2020-05-18] MEDS: traZODone 100 MG Tablet PO (21:14)
[2020-05-18] MEDS: Atorvastatin Calcium 20 MG Tablet PO (21:14)
[2020-05-18] MEDS: HYDROcodone Bitartrate/Apap 5/325 Tablet PO (21:15)
[2020-05-18 22:00] VITALS: BMI 43.6
[2020-05-19] MEDS: dexAMETHasone 4 MG Tablet 6 MG PO ×3 (05:49→17:17)
[2020-05-19] MEDS: Capsaicin 0.025% 1 APPLIC Tube TOPICAL ×2 (05:51→20:43)
[2020-05-19] MEDS: Nystatin Powder 15gm Bottle 1 APPLIC TOPICAL ×2 (05:53→20:42)
[2020-05-19 07:01] VITALS: BP 121/63; PULSE 82; RESP 18; TEMP 36.6; O2SAT 95
[2020-05-19] MEDS: dilTIAZem CD 180 MG Capsule PO ×2 (07:38→20:42)
[2020-05-19] MEDS: Gabapentin 400 MG Capsule PO ×2 (07:38→20:42)
[2020-05-19] MEDS: Senna/Docusate Sodium 1 Tablet 2 TABLET PO (07:38)
[2020-05-19] MEDS: Pantoprazole Sodium 40 MG Tablet PO (07:38)
[2020-05-19] MEDS: FLUoxetine 20 MG Capsule 40 MG PO (07:39)
[2020-05-19] MEDS: Vitamin E 400 UNITS Capsule PO (07:40)
[2020-05-19] MEDS: Multivitamins,Ther W-Minerals Tablet 1 TABLET PO (07:40)
[2020-05-19] MEDS: lamoTRIgine 100 MG Tablet 200 MG PO ×2 (07:40→20:42)
[2020-05-19] MEDS: Tolterodine Tartrate 2 MG CAP.SA PO (07:40)
[2020-05-19] MEDS: Aspirin 81 MG TAB.CHEW PO (07:40)
[2020-05-19] MEDS: Menthol/Lanolin/Calamine/Znox 113 GM Tube 1 APPLIC TOPICAL ×2 (07:45→20:41)
[2020-05-19 09:32] VITALS: BMI 43.6
[2020-05-19] MEDS: HYDROcodone Bitartrate/Apap 5/325 Tablet PO ×2 (11:44→20:43)
--- NOTE | 2020-05-19 14:09 | PCM.PN.BLA ---
Progress Note This is a late entry for 05/19/20 Pat is c/o a R frontal/temporal MARINO today. It is associated with photophobia and nausea. No aura. She has never been diagnosed with migraines but, she has a granddaughter who has migraines. She gets these MARINO's at home. She takes Tylenol but, it does not really help. She usually lays down in a quiet dark room and it eventually goes away. She has never seen a neurologist for this and she is not on treatment for migraines. Denies neck pain and the neck is supple. denies jaw claudication she is afebrile Lungs - CTA but diminished H - RRR PERRL no facial asymmetry no focal neurologic deficits Impressions 1. Suspected migraine cephalgia - magnesium 800 mg PO now, Decadron 6 mg Q 6H x 4 doses. Add [place] 5 mg as needed for migraine cephalgiA. check an ESR. 2. Debility post hemorrhagic CVA 1 day after coiling of the posterior inferior cerebellar artery 3. Hypertension - controlled. All diastolics are less than 80 now and the systolic is coming down also 4. morbid obesity 5. BPD 6. mild N/N anemia suspected to be due to intracerebral hemorrhage and also to frequent blood draws at [facility] for septic shock due to UTI from Staph Simulans 7. previously on Eliquis for persistent atrial fibrillation - now on hold due to the intracerebral hemorrhage 8. OAB - good results with Tolterodine 9. persistent AF 10. pulmonary HTN - overnight trending pulse ox on RA had no desaturations below 90% Inpatient E&M: [id number] Subs Hosp L2
[2020-05-19] MEDS: tiZANidine HCl 2 MG Tablet 4 MG PO (20:41)
[2020-05-19] MEDS: Atorvastatin Calcium 20 MG Tablet PO (20:42)
[2020-05-19] MEDS: traZODone 100 MG Tablet PO (20:42)
[2020-05-19 20:58] VITALS: BP 131/76; PULSE 85; RESP 16; TEMP 36.8; O2SAT 93
[2020-05-19 21:07] VITALS: BMI 43.6
[2020-05-20] MEDS: dexAMETHasone 4 MG Tablet 6 MG PO ×4 (00:50→18:21)
[2020-05-20] MEDS: Nystatin Powder 15gm Bottle 1 APPLIC TOPICAL ×2 (05:30→20:56)
[2020-05-20] MEDS: Capsaicin 0.025% 1 APPLIC Tube TOPICAL ×2 (05:30→20:55)
[2020-05-20 08:25] VITALS: BP 119/74; PULSE 84; RESP 18; TEMP 36.6; O2SAT 93
[2020-05-20] MEDS: Pantoprazole Sodium 40 MG Tablet PO (09:10)
[2020-05-20] MEDS: Vitamin E 400 UNITS Capsule PO (09:10)
[2020-05-20] MEDS: FLUoxetine 20 MG Capsule 40 MG PO (09:10)
[2020-05-20] MEDS: Multivitamins,Ther W-Minerals Tablet 1 TABLET PO (09:10)
[2020-05-20] MEDS: Aspirin 81 MG TAB.CHEW PO (09:10)
[2020-05-20] MEDS: lamoTRIgine 100 MG Tablet 200 MG PO ×2 (09:10→20:55)
[2020-05-20] MEDS: Tolterodine Tartrate 2 MG CAP.SA PO (09:10)
[2020-05-20] MEDS: Gabapentin 400 MG Capsule PO ×2 (09:10→20:55)
[2020-05-20] MEDS: dilTIAZem CD 180 MG Capsule PO ×2 (09:10→20:55)
[2020-05-20] MEDS: Menthol/Lanolin/Calamine/Znox 113 GM Tube 1 APPLIC TOPICAL ×2 (09:12→20:54)
[2020-05-20 09:25] VITALS: BMI 43.6
[2020-05-20] MEDS: tiZANidine HCl 2 MG Tablet 4 MG PO (20:54)
[2020-05-20] MEDS: traZODone 100 MG Tablet PO (20:55)
[2020-05-20] MEDS: Senna/Docusate Sodium 1 Tablet 2 TABLET PO (20:55)
[2020-05-20] MEDS: Atorvastatin Calcium 20 MG Tablet PO (20:55)
[2020-05-20] MEDS: HYDROcodone Bitartrate/Apap 5/325 Tablet PO (20:56)
[2020-05-20 21:02] VITALS: BP 139/74; PULSE 80; RESP 18; TEMP 36.9; O2SAT 93
[2020-05-20 21:59] VITALS: BMI 43.6
[2020-05-21] MEDS: dexAMETHasone 4 MG Tablet 6 MG PO ×4 (00:10→17:10)
[2020-05-21] MEDS: Capsaicin 0.025% 1 APPLIC Tube TOPICAL ×2 (06:22→20:11)
[2020-05-21] MEDS: Nystatin Powder 15gm Bottle 1 APPLIC TOPICAL ×2 (06:25→20:08)
[2020-05-21] MEDS: HYDROcodone Bitartrate/Apap 5/325 Tablet PO ×2 (06:27→20:24)
[2020-05-21 07:47] VITALS: BP 134/77; PULSE 78; RESP 16; TEMP 36.5; O2SAT 93
[2020-05-21] MEDS: dilTIAZem CD 180 MG Capsule PO ×2 (08:22→20:06)
[2020-05-21] MEDS: Vitamin E 400 UNITS Capsule PO (08:22)
[2020-05-21] MEDS: Multivitamins,Ther W-Minerals Tablet 1 TABLET PO (08:22)
[2020-05-21] MEDS: Aspirin 81 MG TAB.CHEW PO (08:22)
[2020-05-21] MEDS: Tolterodine Tartrate 2 MG CAP.SA PO (08:22)
[2020-05-21] MEDS: FLUoxetine 20 MG Capsule 40 MG PO (08:22)
[2020-05-21] MEDS: Pantoprazole Sodium 40 MG Tablet PO (08:22)
[2020-05-21] MEDS: Gabapentin 400 MG Capsule PO ×2 (08:22→20:06)
[2020-05-21] MEDS: lamoTRIgine 100 MG Tablet 200 MG PO ×2 (08:23→20:07)
--- NOTE | 2020-05-21 08:30 | CASEMGMT ---
Social Work IDT met with patient and dtr via conference call for Team Meeting. Discussed patient's progress in therapy. Pt is mod-max x2 fir transfers, using slideboard or rachel. PT to attempt FWW SPT this week. Pt can roll in bed at supervised level, took 2 small steps in // bars, standing for 2 mins and working on weight shifting. Pt is setup for grooming while seated, mod assist for LE bathing, set up for UE dressing, mod for LE dressing and assists with threading pants, and uses adaptive equipment for more independence. This week working on retrolean and trunk control. Pt is sleeping well, pain controlled. ST working on cognition as dtr noted to pt having difficulty with memory while talking to her on the phone each day. Explained insurance NRD 05/21 and continued stay is not guaranteed. Will continue to follow. Vi Faulkner, CIGARETTE MAKING EXAMINER OCCUPATIONAL THERAPIST ASSISTANTS
[2020-05-21 09:30] VITALS: BMI 43.6
[2020-05-21 18:39] VITALS: BP 158/88; PULSE 84; RESP 18; TEMP 36.7; O2SAT 93
[2020-05-21 19:49] VITALS: BMI 43.6
[2020-05-21 19:55] VITALS: RESP 17
[2020-05-21] MEDS: Menthol/Lanolin/Calamine/Znox 113 GM Tube 1 APPLIC TOPICAL (20:07)
[2020-05-21] MEDS: traZODone 100 MG Tablet PO (20:07)
[2020-05-21] MEDS: Atorvastatin Calcium 20 MG Tablet PO (20:07)
[2020-05-21] MEDS: tiZANidine HCl 2 MG Tablet 4 MG PO (20:07)
[2020-05-21] MEDS: Senna/Docusate Sodium 1 Tablet 2 TABLET PO (20:08)
--- NOTE | 2020-05-21 22:21 | PN_ITS ---
Patient Problems: Active and Suspected Problems (Last Reviewed 05/09/20 @ 14:[address] Taisha Mcnulty, DO) Physical debility (Acute) due to hemorrhagic CVA due to recurrent left PIC Awith coiling done at [facility] by Dr. Rosas Hemorrhagic cerebrovascular accident (CVA) (Acute) due to ruptured aneursym Lt PICA on 04/26/20 Status post coil embolization of cerebral aneurysm (Acute) on 04/25/[address] Rosas at [facility] Vitamin D deficiency (Acute) Diplopia (Acute) Subarachnoid hemorrhage due to ruptured aneurysm (Acute) acute -associated with interventricular hemorrage on 04/26/20 1 day after coiling of the L PICA (04/25/20) Subjective: Patient seen today, she has no new complaints, she is progressing in therapy, but staff feels she may not be giving 100% with therapy, reason unclear. Staff also note Pat's boyfriend Moreno brings in junk food for her to eat, which is not helping matters. - Physical Exam Vitals/I&O's: Vital Signs Temp Pulse Resp BP Pulse Ox 98.1 F 84 17 158/88 H 93 05/21/20 18:39 05/21/20 18:39 05/21/20 19:55 05/21/20 18:39 05/21/20 18:39 Oxygen Delivery Method Room Air Weight: 127.1 kg Body Mass Index (BMI) 43.6 Intake and Output for Last 24 Hours 05/19/20 05/20/20 05/21/20 23:59 23:59 23:59 Intake Total 1120 / 1120 1460 / 1460 1770 / 1770 Balance 1120 / 1120 1460 / 1460 1770 / 1770 General: Alert, Oriented x3, Cooperative HEENT: Atraumatic, PERRLA, EOMI, Normocephalic Neck: Supple, No JVD, Negative Carotid Bruits Lungs: Clear to auscultation, Normal air movement Cardiovascular: Regular rate, No murmurs Abdomen: Bowel Sounds Present, Soft, Non Tender Extremities: No edema, Capillary Refill Less than 3 Seconds Skin: No rashes, No breakdown Musculoskeletal: No Tenderness to Palpation of Joints or Extremities Neurological: Cranial nerves II-XII grossly intact Psych/Mental Status: Normal Affect, Appropriate Current Medications Acetaminophen (Tylenol) 650 mg PO Q4H PRN PRN PRN Reason: Pain Score 1-1010 Last Admin: 05/18/20 09:45 Dose: 650 mg Documented by: Hydrocodone Bitart/Acetaminophen ([place] 5mg-325mg) 1 tablet PO Q6H PRN PRN PRN Reason: migraine cephalgia Last Admin: 05/21/20 20:24 Dose: 1 tablet Documented by: Albuterol Sulfate (Ventolin Aerosols) 2.5 mg INHALATION Q4H PRN PRN Reason: SOB/WHEEZING Aspirin (Aspirin, Baby) 81 mg PO DAILYCM [facility] Last Admin: 05/21/20 08:22 Dose: 81 mg Documented by: Atorvastatin Calcium (Lipitor) 20 mg PO QHS [facility] Last Admin: 05/21/20 20:07 Dose: 20 mg Documented by: Bisacodyl (Dulcolax) 10 mg RECTAL .PRN X 1 PRN PRN Reason: Constipation Last Admin: 05/18/20 06:04 Dose: 10 mg Documented by: Calamine/Phenol (Calmoseptine Ointment) 1 applic TOPICAL BID [facility]; Protocol Last Admin: 05/21/20 20:07 Dose: 1 applicatio Documented by: Capsaicin (Zostrix) 1 applic TOPICAL 0600,2200 [facility]; Protocol Last Admin: 05/21/20 20:11 Dose: 1 applicatio Documented by: Dexamethasone (Decadron) 6 mg PO Q6 [facility] Stop: 05/29/20 06:01 Last Admin: 05/21/20 17:10 Dose: 6 mg Documented by: Diltiazem HCl (Cardizem Cd) 180 mg PO BID [facility] Last Admin: 05/21/20 20:06 Dose: 180 mg Documented by: Ergocalciferol (Vitamin D) 50,000 unit PO Leal [facility] Last Admin: 05/20/20 09:10 Dose: 50,000 unit Documented by: Fluoxetine HCl (Prozac) 40 mg PO DAILY [facility] Last Admin: 05/21/20 08:22 Dose: 40 mg Documented by: Gabapentin (Neurontin) 400 mg PO BID [facility] Last Admin: 05/21/20 20:06 Dose: 400 mg Documented by: Lamotrigine (Lamictal) 200 mg PO BID [facility] Last Admin: 05/21/20 20:07 Dose: 200 mg Documented by: Magnesium Hydroxide (Milk Of Magnesia) 30 ml PO .PRN X 1 PRN PRN Reason: Constipation Last Admin: 05/17/20 14:57 Dose: 30 ml Documented by: Multivitamins/Minerals (Multivitamin With Minerals (Bkc)) 1 tablet PO DAILY@0800 [facility] Last Admin: 05/21/20 08:22 Dose: 1 tablet Documented by: Nystatin (Mycostatin Powder) 1 applic TOPICAL BID@0600,2200 [facility]; Protocol Last Admin: 05/21/20 20:08 Dose: 1 applicatio Documented by: Pantoprazole Sodium (Protonix) 40 mg PO DAILY [facility] Last Admin: 05/21/20 08:22 Dose: 40 mg Documented by: Senna/Docusate Sodium (Senokot-S, Sena-Colace) 2 tablet PO BID [facility] Last Admin: 05/21/20 20:08 Dose: 2 tablet Documented by: Sodium Chloride () 10 - 40 ml IV UD PRN PRN Reason: SALINE FLUSH Last Admin: 05/17/20 09:09 Dose: 10 ml Documented by: Tizanidine HCl (Zanaflex) 4 mg PO DAILY@2100 [facility] Last Admin: 05/21/20 20:07 Dose: 4 mg Documented by: Tolterodine Tartrate (Detrol La) 2 mg PO DAILY [facility] Last Admin: 05/21/20 08:22 Dose: 2 mg Documented by: Trazodone HCl (Desyrel) 100 mg PO QHS [facility] Last Admin: 05/21/20 20:07 Dose: 100 mg Documented by: Vitamin E (Vitamin E) 400 units PO DAILYCM [facility] Last Admin: 05/21/20 08:22 Dose: 400 units Documented by: Capacity - Capacity Assessment Tool Can the patient make a choice & communicate that choice?: Yes Can the patient understand benefits, risks and alternatives?: Yes Can the patient make a logical, rational choice?: Yes Is the choice the patient makes consistent w/ their values?: Yes Is there an impending, emergent risk to the patient?: No Does the patient have an Advance Directive?: No Is there a Surrogate Available?: Yes i.e. HCPOA: Yes i.e. close relative (spouse, child, parent, sibling)?: Yes Medical Necessity - Tobacco Use Smoking Status: Former smoker Tobacco Use: Cigarettes Assessment/Plan All Active Problems (Last Reviewed 05/09/20 @ 14:[address] Taisha Mcnulty, DO) Physical debility (Acute) Hemorrhagic cerebrovascular accident (CVA) (Acute) Status post coil embolization of cerebral aneurysm (Acute) Vitamin D deficiency (Acute) Diplopia (Acute) Subarachnoid hemorrhage due to ruptured aneurysm (Acute) Sepsis (Resolved) UTI (urinary tract infection) (Resolved) Acute exacerbation of chronic obstructive pulmonary disease (COPD) (Resolved) Acute fall (Resolved) Allergic reaction due to correct medicinal substance properly administered (Resolved) Atrial fibrillation with RVR (Resolved) CAP (community acquired pneumonia) (Resolved) Cellulitis of lower leg (Resolved) History of MRSA infection (Resolved) Hypokalemia (Resolved) Infected open wound (Resolved) Influenza B (Resolved) Laceration of head (Resolved) MRSA (methicillin resistant Staphylococcus aureus) infection (Resolved) Metabolic alkalosis (Resolved) Non-healing wound of lower extremity (Resolved) Nonhealing nonsurgical wound limited to breakdown of skin (Resolved) Parainfluenza virus bronchopneumonia (Resolved) Pneumonia (Resolved) Sinusitis (Resolved) Syncope and collapse (Resolved) 64 year old female with below past medical history hospitalized for hemorrhagic stroke, admitted to for 3 hours of therapy daily, prior to discharge home with significant other. * Debility - PT/OT. * Cognition/stroke - ST. * Pain - Tylenol 650MG Q4H PRN, [place] 5/325MG 1 tablet Q6H PRN, Zostrix topical BID. * Bowel - Senna/colace 2 tablets BID, Dulcolax 10MG [place] daily PRN, MOM 30ML PO x 1 dose PRN. * COPD - Albuterol 2.5MG Q4H PRN. * Stroke - Aspirin 81MG daily. * Hyperlipidemia - Atorvastatin 20MG QHS. * Migraine - Decadron 6MG Q6H thru 05/29/2020. * Hypertension - Diltiazem 180MG twice daily. * Vitamin D deficiency - D2 50,000 units per week. * Depression - Fluoxetine 40MG daily, Lamictal 200MG twice daily. * Neuropathic pain - Gabapentin 400MG twice daily. * Skin irritation - Calmoseptine twice daily. * Nutrition - MVI daily. * Tinea Corporis - Nystatin powder twice daily. * GERD - Pantoprazole 40MG daily. * Muscle spasm - Tizanidine 4MG daily. * Overactive bladder - Tolterodine 2MG daily. * Insomnia - Trazodone 100MG QHS. * Vitamin E deficiency - Vitamin E 400IU daily.
[2020-05-22] MEDS: dexAMETHasone 4 MG Tablet 6 MG PO ×5 (00:45→23:35)
[2020-05-22] MEDS: Nystatin Powder 15gm Bottle 1 APPLIC TOPICAL ×2 (05:55→20:22)
[2020-05-22 08:54] VITALS: BP 124/82; PULSE 83; RESP 16; TEMP 36.5; O2SAT 92
[2020-05-22] MEDS: lamoTRIgine 100 MG Tablet 200 MG PO ×2 (09:15→20:21)
[2020-05-22] MEDS: Aspirin 81 MG TAB.CHEW PO (09:15)
[2020-05-22] MEDS: Multivitamins,Ther W-Minerals Tablet 1 TABLET PO (09:15)
[2020-05-22] MEDS: Tolterodine Tartrate 2 MG CAP.SA PO (09:15)
[2020-05-22] MEDS: Vitamin E 400 UNITS Capsule PO (09:15)
[2020-05-22] MEDS: Gabapentin 400 MG Capsule PO ×2 (09:16→20:23)
[2020-05-22] MEDS: Pantoprazole Sodium 40 MG Tablet PO (09:16)
[2020-05-22] MEDS: dilTIAZem CD 180 MG Capsule PO ×2 (09:16→20:21)
[2020-05-22] MEDS: FLUoxetine 20 MG Capsule 40 MG PO (09:16)
[2020-05-22] MEDS: Menthol/Lanolin/Calamine/Znox 113 GM Tube 1 APPLIC TOPICAL ×2 (09:17→20:29)
[2020-05-22 14:17] VITALS: BMI 43.6
[2020-05-22 18:38] VITALS: BP 129/85; PULSE 96; RESP 16; TEMP 36.8; O2SAT 93
[2020-05-22 20:01] VITALS: BMI 43.6
[2020-05-22 20:09] VITALS: RESP 16
[2020-05-22] MEDS: tiZANidine HCl 2 MG Tablet 4 MG PO (20:20)
[2020-05-22] MEDS: traZODone 100 MG Tablet PO (20:21)
[2020-05-22] MEDS: Atorvastatin Calcium 20 MG Tablet PO (20:22)
[2020-05-22] MEDS: Capsaicin 0.025% 1 APPLIC Tube TOPICAL (20:27)
[2020-05-23] MEDS: Capsaicin 0.025% 1 APPLIC Tube TOPICAL ×2 (06:17→20:36)
[2020-05-23] MEDS: dexAMETHasone 4 MG Tablet 6 MG PO ×4 (06:17→23:50)
[2020-05-23] MEDS: Nystatin Powder 15gm Bottle 1 APPLIC TOPICAL ×2 (06:18→20:37)
[2020-05-23] MEDS: Aspirin 81 MG TAB.CHEW PO (07:52)
[2020-05-23] MEDS: Vitamin E 400 UNITS Capsule PO (07:52)
[2020-05-23] MEDS: Tolterodine Tartrate 2 MG CAP.SA PO (07:52)
[2020-05-23] MEDS: Gabapentin 400 MG Capsule PO ×2 (07:52→20:37)
[2020-05-23] MEDS: Multivitamins,Ther W-Minerals Tablet 1 TABLET PO (07:52)
[2020-05-23] MEDS: Pantoprazole Sodium 40 MG Tablet PO (07:52)
[2020-05-23] MEDS: dilTIAZem CD 180 MG Capsule PO ×2 (07:52→20:39)
[2020-05-23] MEDS: FLUoxetine 20 MG Capsule 40 MG PO (07:53)
[2020-05-23] MEDS: Menthol/Lanolin/Calamine/Znox 113 GM Tube 1 APPLIC TOPICAL ×2 (07:54→20:39)
[2020-05-23 08:30] LABS: Mucous, Urine 0 SEEN /hpf (<or=2+)
--- NOTE | 2020-05-23 08:34 | PCM.PROGNOTE ---
Patient Problems: Active and Suspected Problems (Last Reviewed 05/09/20 @ 14:[address] 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 Rosas Hemorrhagic cerebrovascular accident (CVA) (Acute) due to ruptured aneursym Lt PICA on 04/26/20 Status post coil embolization of cerebral aneurysm (Acute) on 04/25/[address] Rosas at [facility] Vitamin D deficiency (Acute) Diplopia (Acute) Subarachnoid hemorrhage due to ruptured aneurysm (Acute) acute -associated with interventricular hemorrage on 04/26/20 1 day after coiling of the L PICA (04/25/20) Subjective: Resident seen in room. Lying in bed, eating breakfast. She has no new complaints. She is improving with therapy, she admits therapy does wear her out, but feels a little stronger every day. - Physical Exam Vitals/I&O's: Vital Signs Temp Pulse Resp BP Pulse Ox 98.3 F 96 16 129/85 H 93 05/22/20 18:38 05/22/20 18:38 05/22/20 20:09 05/22/20 18:38 05/22/20 18:38 Oxygen Delivery Method Room Air Weight: 127.1 kg Body Mass Index (BMI) 43.6 Intake and Output for Last 24 Hours 05/21/20 05/22/20 05/23/20 23:59 23:59 23:59 Intake Total 1770 / 1770 1660 / 1660 Output Total 300 / 300 Balance 1770 / 1770 1360 / 1360 General: Alert, Oriented x3, Cooperative HEENT: Atraumatic, PERRLA, EOMI, Normocephalic Neck: Supple, No JVD, Negative Carotid Bruits Lungs: Clear to auscultation, Normal air movement Cardiovascular: Regular rate, No murmurs Abdomen: Bowel Sounds Present, Soft, Non Tender Extremities: No edema, Capillary Refill Less than 3 Seconds Skin: No rashes, No breakdown Musculoskeletal: No Tenderness to Palpation of Joints or Extremities Neurological: Cranial nerves II-XII grossly intact Psych/Mental Status: Normal Affect, Appropriate Laboratory Results 05/23/20 08:00: Urine Color Pending, Urine Clarity Pending, Urine pH Pending, Ur Specific [place] Pending, Urine Protein Pending, Urine Glucose (UA) Pending, Urine Ketones Pending, Urine Occult Blood Pending, Urine Nitrite Pending, Urine Bilirubin Pending, Urine Urobilinogen Pending, Ur Leukocyte Esterase Pending, Urine RBC Pending, Urine WBC Pending, Ur Squamous Epith Cells Pending, Urine Bacteria Pending, Urine Mucus Pending Current Medications Acetaminophen (Tylenol) 650 mg PO Q4H PRN PRN PRN Reason: Pain Score 1-10/10 Last Admin: 05/18/20 09:45 Dose: 650 mg Documented by: Hydrocodone Bitart/Acetaminophen (Jack 5mg-325mg) 1 tablet PO Q6H PRN PRN PRN Reason: migraine cephalgia Last Admin: 05/21/20 20:24 Dose: 1 tablet Documented by: Albuterol Sulfate (Ventolin Aerosols) 2.5 mg INHALATION Q4H PRN PRN Reason: SOB/WHEEZING Aspirin (Aspirin, Baby) 81 mg PO DAILYCM [facility] Last Admin: 05/23/20 07:52 Dose: 81 mg Documented by: Atorvastatin Calcium (Lipitor) 20 mg PO QHS [facility] Last Admin: 05/22/20 20:22 Dose: 20 mg Documented by: Bisacodyl (Dulcolax) 10 mg RECTAL .PRN X 1 PRN PRN Reason: Constipation Last Admin: 05/18/20 06:04 Dose: 10 mg Documented by: Calamine/Phenol (Calmoseptine Ointment) 1 applic TOPICAL BID [facility]; Protocol Last Admin: 05/23/20 07:54 Dose: 1 applicatio Documented by: Capsaicin (Zostrix) 1 applic TOPICAL 0600,2200 [facility]; Protocol Last Admin: 05/23/20 06:17 Dose: 1 applicatio Documented by: Dexamethasone (Decadron) 6 mg PO Q6 [facility] Stop: 05/29/20 06:01 Last Admin: 05/23/20 06:17 Dose: 6 mg Documented by: Diltiazem HCl (Cardizem Cd) 180 mg PO BID [facility] Last Admin: 05/23/20 07:52 Dose: 180 mg Documented by: Ergocalciferol (Vitamin D) 50,000 unit PO Leal [facility] Last Admin: 05/20/20 09:10 Dose: 50,000 unit Documented by: Fluoxetine HCl (Prozac) 40 mg PO DAILY [facility] Last Admin: 05/23/20 07:53 Dose: 40 mg Documented by: Gabapentin (Neurontin) 400 mg PO BID [facility] Last Admin: 05/23/20 07:52 Dose: 400 mg Documented by: Lamotrigine (Lamictal) 200 mg PO BID [facility] Last Admin: 05/22/20 20:21 Dose: 200 mg Documented by: Magnesium Hydroxide (Milk Of Magnesia) 30 ml PO .PRN X 1 PRN PRN Reason: Constipation Last Admin: 05/17/20 14:57 Dose: 30 ml Documented by: Multivitamins/Minerals (Multivitamin With Minerals (Bkc)) 1 tablet PO DAILY@0800 [facility] Last Admin: 05/23/20 07:52 Dose: 1 tablet Documented by: Nystatin (Mycostatin Powder) 1 applic TOPICAL BID@0600,2200 [facility]; Protocol Last Admin: 05/23/20 06:18 Dose: 1 applicatio Documented by: Pantoprazole Sodium (Protonix) 40 mg PO DAILY [facility] Last Admin: 05/23/20 07:52 Dose: 40 mg Documented by: Senna/Docusate Sodium (Senokot-S, Sena-Colace) 2 tablet PO BID [facility] Last Admin: 05/22/20 10:13 Dose: Not Given Documented by: Sodium Chloride () 10 - 40 ml IV UD PRN PRN Reason: SALINE FLUSH Last Admin: 05/17/20 09:09 Dose: 10 ml Documented by: Tizanidine HCl (Zanaflex) 4 mg PO DAILY@2100 [facility] Last Admin: 05/22/20 20:20 Dose: 4 mg Documented by: Tolterodine Tartrate (Detrol La) 2 mg PO DAILY [facility] Last Admin: 05/23/20 07:52 Dose: 2 mg Documented by: Trazodone HCl (Desyrel) 100 mg PO QHS [facility] Last Admin: 05/22/20 20:21 Dose: 100 mg Documented by: Vitamin E (Vitamin E) [facility] Last Admin: 05/23/20 07:52 Dose: 400 units Documented by: Medical Necessity - Tobacco Use Smoking Status: Former smoker Tobacco Use: Cigarettes Assessment/Plan All Active Problems (Last Reviewed 05/09/20 @ 14:[address] Taisha Mcnulty DO) Physical debility (Acute) Hemorrhagic cerebrovascular accident (CVA) (Acute) Status post coil embolization of cerebral aneurysm (Acute) Vitamin D deficiency (Acute) Diplopia (Acute) Subarachnoid hemorrhage due to ruptured aneurysm (Acute) Sepsis (Resolved) UTI (urinary tract infection) (Resolved) Acute exacerbation of chronic obstructive pulmonary disease (COPD) (Resolved) Acute fall (Resolved) Allergic reaction due to correct medicinal substance properly administered (Resolved) Atrial fibrillation with RVR (Resolved) CAP (community acquired pneumonia) (Resolved) Cellulitis of lower leg (Resolved) History of MRSA infection (Resolved) Hypokalemia (Resolved) Infected open wound (Resolved) Influenza B (Resolved) Laceration of head (Resolved) MRSA (methicillin resistant Staphylococcus aureus) infection (Resolved) Metabolic alkalosis (Resolved) Non-healing wound of lower extremity (Resolved) Nonhealing nonsurgical wound limited to breakdown of skin (Resolved) Parainfluenza virus bronchopneumonia (Resolved) Pneumonia (Resolved) Sinusitis (Resolved) Syncope and collapse (Resolved) 64 year old female with below past medical history hospitalized for hemorrhagic stroke, admitted to for 3 hours of therapy daily, prior to discharge home with significant other. Debility - PT/OT. Cognition/stroke - ST. Pain - Tylenol 650MG Q4H PRN, Jack 5/325MG 1 tablet Q6H PRN, Zostrix topical BID. Bowel - Senna/colace 2 tablets BID, Dulcolax 10MG [place] daily PRN, MOM 30ML PO x 1 dose PRN. COPD - Albuterol 2.5MG Q4H PRN. Stroke - Aspirin 81MG daily. Hyperlipidemia - Atorvastatin 20MG QHS. Migraine - Decadron 6MG Q6H thru 05/29/2020, No complaints of migraine headaches today. Hypertension - Diltiazem 180MG twice daily. Vitamin D deficiency - D2 50,000 units per week. Depression - Fluoxetine 40MG daily, Lamictal 200MG twice daily. Neuropathic pain - Gabapentin 400MG twice daily. Skin irritation - Calmoseptine twice daily. Nutrition - MVI daily. Tinea Corporis - Nystatin powder twice daily. GERD - Pantoprazole 40MG daily. Muscle spasm - Tizanidine 4MG daily. Overactive bladder - Tolterodine 2MG daily. Insomnia - Trazodone 100MG QHS. Vitamin E deficiency - Vitamin E 400IU daily.
[2020-05-23 09:12] LABS: Color, Urine Yellow (Yellow); Glucose, Dipstick Normal (Normal); Ketone-Dipstick Negative (Negative); Leukocyte Esterase-Dipstick 500 /ul (Negative); Nitrite-Dipstick Positive (Negative); Occult Blood-Urine 25 /ul (Negative); Protein-Dipstick 15 mg/dl (Negative); Urine Bilirubin Dipstick Negative (Negative); Urine Clarity Sl. Cloudy (Clear); Urine Urobilinogen Normal (Normal)
[2020-05-23 09:19] LABS: Bacteria 2+ /hpf (None Seen); Red Blood Cells-Urine 0-5 SEEN /hpf (0-5); Squamous Epithelial Cells - UA 0-5 SEEN /hpf (5-10); White Blood Cells 50-100 SEEN /hpf (0-5)
[2020-05-23 10:00] VITALS: BP 134/79; PULSE 64; RESP 16; TEMP 36.6; O2SAT 94
[2020-05-23] MEDS: lamoTRIgine 100 MG Tablet 200 MG PO ×2 (10:34→20:38)
[2020-05-23] MEDS: Ciprofloxacin 500 MG Tablet PO ×2 (11:49→20:38)
--- NOTE | 2020-05-23 12:00 | NURSING ---
Patient aware of new Atb order due to positive UA.
[2020-05-23 15:21] VITALS: BMI 43.6
[2020-05-23] MEDS: HYDROcodone Bitartrate/Apap 5/325 Tablet PO (17:00)
[2020-05-23 19:42] VITALS: BP 148/92; PULSE 99; RESP 18; TEMP 36.8; O2SAT 97
[2020-05-23] MEDS: Atorvastatin Calcium 20 MG Tablet PO (20:38)
[2020-05-23 20:39] VITALS: BMI 43.6
[2020-05-23] MEDS: tiZANidine HCl 2 MG Tablet 4 MG PO (20:39)
[2020-05-24] MEDS: Capsaicin 0.025% 1 APPLIC Tube TOPICAL (05:20)
[2020-05-24] MEDS: dexAMETHasone 4 MG Tablet 6 MG PO ×3 (05:20→18:03)
[2020-05-24] MEDS: Nystatin Powder 15gm Bottle 1 APPLIC TOPICAL ×2 (05:21→20:18)
[2020-05-24 08:39] VITALS: BP 152/82; PULSE 90; RESP 16; TEMP 36.6; O2SAT 96
[2020-05-24] MEDS: Aspirin 81 MG TAB.CHEW PO (08:43)
[2020-05-24] MEDS: Multivitamins,Ther W-Minerals Tablet 1 TABLET PO (08:43)
[2020-05-24] MEDS: Ciprofloxacin 500 MG Tablet PO ×2 (08:43→20:18)
[2020-05-24] MEDS: Tolterodine Tartrate 2 MG CAP.SA PO (08:43)
[2020-05-24] MEDS: Vitamin E 400 UNITS Capsule PO (08:43)
[2020-05-24] MEDS: lamoTRIgine 100 MG Tablet 200 MG PO ×2 (08:43→20:18)
[2020-05-24] MEDS: dilTIAZem CD 180 MG Capsule PO ×2 (08:43→20:18)
[2020-05-24] MEDS: Pantoprazole Sodium 40 MG Tablet PO (08:44)
[2020-05-24] MEDS: Gabapentin 400 MG Capsule PO ×2 (08:44→20:19)
[2020-05-24] MEDS: FLUoxetine 20 MG Capsule 40 MG PO (08:44)
[2020-05-24] MEDS: Senna/Docusate Sodium 1 Tablet 2 TABLET PO (08:47)
[2020-05-24] MEDS: Menthol/Lanolin/Calamine/Znox 113 GM Tube 1 APPLIC TOPICAL ×2 (08:51→20:17)
[2020-05-24 09:52] VITALS: BMI 43.6
[2020-05-24] MEDS: HYDROcodone Bitartrate/Apap 5/325 Tablet PO ×2 (10:05→20:22)
--- NOTE | 2020-05-24 18:07 | PCM.PROGNOTE ---
Patient Problems: Active and Suspected Problems (Last Reviewed 05/09/20 @ 14:[address] 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 Rosas Hemorrhagic cerebrovascular accident (CVA) (Acute) due to ruptured aneursym Lt PICA on 04/26/20 Status post coil embolization of cerebral aneurysm (Acute) on 04/25/[address] Rosas at [facility] Vitamin D deficiency (Acute) Diplopia (Acute) Subarachnoid hemorrhage due to ruptured aneurysm (Acute) acute -associated with interventricular hemorrage on 04/26/20 1 day after coiling of the L PICA (04/25/20) Subjective: Patient seen, eating breakfast. Urine culture growing E. Coli, she is on Cipro but she still has urinary symptoms, I reassured her her symptoms will improve over time. She has no new complaints, has good appetite. - Physical Exam Vitals/I&O's: Vital Signs Temp Pulse Resp BP Pulse Ox 97.9 F 90 16 152/82 H 96 05/24/20 08:39 05/24/20 08:39 05/24/20 08:39 05/24/20 08:39 05/24/20 08:39 Oxygen Delivery Method Room Air Weight: 128 kg Body Mass Index (BMI) 43.6 Intake and Output for Last 24 Hours 05/22/20 05/23/20 05/24/20 23:59 23:59 23:59 Intake Total 1660 / 1660 1160 / 1160 760 / 760 Output Total 300 / 300 Balance 1360 / 1360 1160 / 1160 760 / 760 General: Alert, Oriented x3, Cooperative HEENT: Atraumatic, PERRLA, EOMI, Normocephalic Neck: Supple, No JVD, Negative Carotid Bruits Lungs: Clear to auscultation, Normal air movement Cardiovascular: Regular rate, No murmurs Abdomen: Bowel Sounds Present, Soft, Non Tender Extremities: No edema, Capillary Refill Less than 3 Seconds Skin: No rashes, No breakdown Musculoskeletal: No Tenderness to Palpation of Joints or Extremities Neurological: Cranial nerves II-XII grossly intact Psych/Mental Status: Normal Affect, Appropriate Microbiology Past 72 Hours 05/23/20 08:00 Urine, Catheterized Urine Culture - Preliminary Presumptive E. coli Current Medications Acetaminophen (Tylenol) 650 mg PO Q4H PRN PRN PRN Reason: Pain Score 1-10/10 Last Admin: 05/18/20 09:45 Dose: 650 mg Documented by: Hydrocodone Bitart/Acetaminophen ([place] 5mg-325mg) 1 tablet PO Q6H PRN PRN PRN Reason: migraine cephalgia Last Admin: 05/24/20 10:05 Dose: 1 tablet Documented by: Albuterol Sulfate (Ventolin Aerosols) 2.5 mg INHALATION Q4H PRN PRN Reason: SOB/WHEEZING Aspirin (Aspirin, Baby) 81 mg PO DAILYCM [facility] Last Admin: 05/24/20 08:43 Dose: 81 mg Documented by: Atorvastatin Calcium (Lipitor) 20 mg PO QHS [facility] Last Admin: 05/23/20 20:38 Dose: 20 mg Documented by: Bisacodyl (Dulcolax) 10 mg RECTAL .PRN X 1 PRN PRN Reason: Constipation Last Admin: 05/18/20 06:04 Dose: 10 mg Documented by: Calamine/Phenol (Calmoseptine Ointment) 1 applic TOPICAL BID [facility]; Protocol Last Admin: 05/24/20 08:51 Dose: 1 applicatio Documented by: Capsaicin (Zostrix) 1 applic TOPICAL 0600,2200 [facility]; Protocol Last Admin: 05/24/20 05:20 Dose: 1 applicatio Documented by: Ciprofloxacin HCl (Cipro) 500 mg PO BID [facility] Stop: 05/30/20 10:01 Last Admin: 05/24/20 08:43 Dose: 500 mg Documented by: Dexamethasone (Decadron) 6 mg PO Q6 [facility] Stop: 05/29/20 06:01 Last Admin: 05/24/20 18:03 Dose: 6 mg Documented by: Diltiazem HCl (Cardizem Cd) 180 mg PO BID [facility] Last Admin: 05/24/20 08:43 Dose: 180 mg Documented by: Ergocalciferol (Vitamin D) 50,000 unit PO Leal [facility] Last Admin: 05/20/20 09:10 Dose: 50,000 unit Documented by: Fluoxetine HCl (Prozac) 40 mg PO DAILY [facility] Last Admin: 05/24/20 08:44 Dose: 40 mg Documented by: Gabapentin (Neurontin) 400 mg PO BID [facility] Last Admin: 05/24/20 08:44 Dose: 400 mg Documented by: Lamotrigine (Lamictal) 200 mg PO BID [facility] Last Admin: 05/24/20 08:43 Dose: 200 mg Documented by: Magnesium Hydroxide (Milk Of Magnesia) 30 ml PO .PRN X 1 PRN PRN Reason: Constipation Last Admin: 05/17/20 14:57 Dose: 30 ml Documented by: Multivitamins/Minerals (Multivitamin With Minerals (Bkc)) 1 tablet PO DAILY@0800 [facility] Last Admin: 05/24/20 08:43 Dose: 1 tablet Documented by: Nystatin (Mycostatin Powder) 1 applic TOPICAL BID@0600,2200 [facility]; Protocol Last Admin: 05/24/20 05:21 Dose: 1 applicatio Documented by: Pantoprazole Sodium (Protonix) 40 mg PO DAILY [facility] Last Admin: 05/24/20 08:44 Dose: 40 mg Documented by: Senna/Docusate Sodium (Senokot-S, Sena-Colace) 2 tablet PO BID [facility] Last Admin: 05/24/20 08:47 Dose: 2 tablet Documented by: Sodium Chloride () 10 - 40 ml IV UD PRN PRN Reason: SALINE FLUSH Last Admin: 05/17/20 09:09 Dose: 10 ml Documented by: Tizanidine HCl (Zanaflex) 4 mg PO DAILY@2100 [facility] Last Admin: 05/23/20 20:39 Dose: 4 mg Documented by: Tolterodine Tartrate (Detrol La) 2 mg PO DAILY [facility] Last Admin: 05/24/20 08:43 Dose: 2 mg Documented by: Trazodone HCl (Desyrel) 100 mg PO QHS [facility] Last Admin: 05/22/20 20:21 Dose: 100 mg Documented by: Vitamin E (Vitamin E) 400 units PO DAILYCM [facility] Last Admin: 05/24/20 08:43 Dose: 400 units Documented by: Capacity - Capacity Assessment Tool Can the patient make a choice & communicate that choice?: Yes Can the patient understand benefits, risks and alternatives?: Yes Can the patient make a logical, rational choice?: Yes Is the choice the patient makes consistent w/ their values?: Yes Is there an impending, emergent risk to the patient?: No Does the patient have an Advance Directive?: No Is there a Surrogate Available?: Yes i.e. HCPOA: Yes i.e. close relative (spouse, child, parent, sibling)?: Yes Medical Necessity - Tobacco Use Smoking Status: Former smoker Tobacco Use: Cigarettes Assessment/Plan All Active Problems (Last Reviewed 05/09/20 @ 14:[address] Taisha Mcnulty, DO) Physical debility (Acute) Hemorrhagic cerebrovascular accident (CVA) (Acute) Status post coil embolization of cerebral aneurysm (Acute) Vitamin D deficiency (Acute) Diplopia (Acute) Subarachnoid hemorrhage due to ruptured aneurysm (Acute) Sepsis (Resolved) UTI (urinary tract infection) (Resolved) Acute exacerbation of chronic obstructive pulmonary disease (COPD) (Resolved) Acute fall (Resolved) Allergic reaction due to correct medicinal substance properly administered (Resolved) Atrial fibrillation with RVR (Resolved) CAP (community acquired pneumonia) (Resolved) Cellulitis of lower leg (Resolved) History of MRSA infection (Resolved) Hypokalemia (Resolved) Infected open wound (Resolved) Influenza B (Resolved) Laceration of head (Resolved) MRSA (methicillin resistant Staphylococcus aureus) infection (Resolved) Metabolic alkalosis (Resolved) Non-healing wound of lower extremity (Resolved) Nonhealing nonsurgical wound limited to breakdown of skin (Resolved) Parainfluenza virus bronchopneumonia (Resolved) Pneumonia (Resolved) Sinusitis (Resolved) Syncope and collapse (Resolved) 64 year old female with below past medical history hospitalized for hemorrhagic stroke, admitted to for 3 hours of therapy daily, prior to discharge home with significant other. Debility - PT/OT. Cognition/stroke - ST. Pain - Tylenol 650MG Q4H PRN, [place] 5/325MG 1 tablet Q6H PRN, Zostrix topical BID. Bowel - Senna/colace 2 tablets BID, Dulcolax 10MG [place] daily PRN, MOM 30ML PO x 1 dose PRN. COPD - Albuterol 2.5MG Q4H PRN. Stroke - Aspirin 81MG daily. Hyperlipidemia - Atorvastatin 20MG QHS. Migraine - Decadron 6MG Q6H thru 05/29/2020, No complaints of migraine headaches today. Hypertension - Diltiazem 180MG twice daily. Vitamin D deficiency - D2 50,000 units per week. Depression - Fluoxetine 40MG daily, Lamictal 200MG twice daily. Neuropathic pain - Gabapentin 400MG twice daily. Skin irritation - Calmoseptine twice daily. Nutrition - MVI daily. Tinea Corporis - Nystatin powder twice daily. GERD - Pantoprazole 40MG daily. Muscle spasm - Tizanidine 4MG daily. Overactive bladder - Tolterodine 2MG daily. Insomnia - Trazodone 100MG QHS. Vitamin E deficiency - Vitamin E 400IU daily. E. Coli UTI - Cipro 500MG twice daily thru 05/30/2020, sensitivity pending.
[2020-05-24 19:23] VITALS: BP 133/94; PULSE 89; RESP 16; TEMP 36.9; O2SAT 96
[2020-05-24] MEDS: tiZANidine HCl 2 MG Tablet 4 MG PO (20:17)
[2020-05-24] MEDS: Atorvastatin Calcium 20 MG Tablet PO (20:18)
[2020-05-24 22:37] VITALS: BMI 43.6
[2020-05-25] MEDS: dexAMETHasone 4 MG Tablet 6 MG PO ×4 (00:04→17:37)
[2020-05-25] MEDS: Capsaicin 0.025% 1 APPLIC Tube TOPICAL ×2 (05:13→21:02)
[2020-05-25] MEDS: Nystatin Powder 15gm Bottle 1 APPLIC TOPICAL ×2 (05:15→21:07)
[2020-05-25] MEDS: Multivitamins,Ther W-Minerals Tablet 1 TABLET PO (07:32)
[2020-05-25] MEDS: dilTIAZem CD 180 MG Capsule PO ×2 (07:32→21:01)
[2020-05-25] MEDS: Aspirin 81 MG TAB.CHEW PO (07:32)
[2020-05-25] MEDS: Vitamin E 400 UNITS Capsule PO (07:32)
[2020-05-25] MEDS: Gabapentin 400 MG Capsule PO ×2 (07:33→21:01)
[2020-05-25] MEDS: Tolterodine Tartrate 2 MG CAP.SA PO (07:33)
[2020-05-25] MEDS: Ciprofloxacin 500 MG Tablet PO ×2 (07:33→21:01)
[2020-05-25] MEDS: lamoTRIgine 100 MG Tablet 200 MG PO ×2 (07:33→21:01)
[2020-05-25] MEDS: Senna/Docusate Sodium 1 Tablet 2 TABLET PO (07:34)
[2020-05-25] MEDS: FLUoxetine 20 MG Capsule 40 MG PO (07:34)
[2020-05-25] MEDS: Pantoprazole Sodium 40 MG Tablet PO (07:34)
[2020-05-25] MEDS: Menthol/Lanolin/Calamine/Znox 113 GM Tube 1 APPLIC TOPICAL ×2 (07:36→21:17)
[2020-05-25 08:08] VITALS: BP 127/82; PULSE 83; RESP 18; TEMP 36.6; O2SAT 94
[2020-05-25 09:10] VITALS: BMI 43.6
[2020-05-25 20:46] VITALS: BP 137/75; PULSE 96; RESP 16; TEMP 36.9; O2SAT 95
[2020-05-25] MEDS: tiZANidine HCl 2 MG Tablet 4 MG PO (21:01)
[2020-05-25] MEDS: Atorvastatin Calcium 20 MG Tablet PO (21:01)
[2020-05-25] MEDS: HYDROcodone Bitartrate/Apap 5/325 Tablet PO (21:17)
[2020-05-26] MEDS: dexAMETHasone 4 MG Tablet 6 MG PO ×5 (00:09→22:56)
[2020-05-26 03:48] VITALS: BMI 43.6
[2020-05-26] MEDS: Nystatin Powder 15gm Bottle 1 APPLIC TOPICAL ×2 (05:01→22:14)
[2020-05-26 08:00] VITALS: BP 129/87; PULSE 86; RESP 18; TEMP 36.8; O2SAT 95
[2020-05-26] MEDS: Multivitamins,Ther W-Minerals Tablet 1 TABLET PO (08:00)
[2020-05-26] MEDS: FLUoxetine 20 MG Capsule 40 MG PO (08:00)
[2020-05-26] MEDS: Pantoprazole Sodium 40 MG Tablet PO (08:01)
[2020-05-26] MEDS: Menthol/Lanolin/Calamine/Znox 113 GM Tube 1 APPLIC TOPICAL ×2 (08:01→22:15)
[2020-05-26] MEDS: lamoTRIgine 100 MG Tablet 200 MG PO ×2 (08:01→22:15)
[2020-05-26] MEDS: dilTIAZem CD 180 MG Capsule PO ×2 (08:01→22:15)
[2020-05-26] MEDS: Vitamin E 400 UNITS Capsule PO (08:01)
[2020-05-26] MEDS: Tolterodine Tartrate 2 MG CAP.SA PO (08:03)
[2020-05-26] MEDS: Aspirin 81 MG TAB.CHEW PO (08:03)
[2020-05-26] MEDS: Gabapentin 400 MG Capsule PO ×2 (08:04→22:14)
[2020-05-26 09:00] VITALS: PULSE 88
[2020-05-26] MEDS: Ciprofloxacin 500 MG Tablet PO ×2 (09:44→22:15)
[2020-05-26] MEDS: Acetaminophen 325 MG Tablet 650 MG PO (09:44)
[2020-05-26 13:30] VITALS: BMI 43.6
[2020-05-26 19:22] VITALS: BP 149/79; PULSE 92; RESP 18; TEMP 36.8; O2SAT 92
[2020-05-26] MEDS: tiZANidine HCl 2 MG Tablet 4 MG PO (22:08)
[2020-05-26] MEDS: Capsaicin 0.025% 1 APPLIC Tube TOPICAL (22:13)
[2020-05-26] MEDS: Atorvastatin Calcium 20 MG Tablet PO (22:14)
[2020-05-26] MEDS: HYDROcodone Bitartrate/Apap 5/325 Tablet PO (22:27)
[2020-05-27] MEDS: Nystatin Powder 15gm Bottle 1 APPLIC TOPICAL ×2 (06:08→20:51)
[2020-05-27] MEDS: dexAMETHasone 4 MG Tablet 6 MG PO ×4 (06:08→23:24)
[2020-05-27] MEDS: Pantoprazole Sodium 40 MG Tablet PO (08:11)
[2020-05-27] MEDS: Vitamin E 400 UNITS Capsule PO (08:11)
[2020-05-27] MEDS: Aspirin 81 MG TAB.CHEW PO (08:11)
[2020-05-27] MEDS: lamoTRIgine 100 MG Tablet 200 MG PO ×2 (08:11→20:49)
[2020-05-27] MEDS: Tolterodine Tartrate 2 MG CAP.SA PO (08:11)
[2020-05-27] MEDS: Multivitamins,Ther W-Minerals Tablet 1 TABLET PO (08:11)
[2020-05-27] MEDS: FLUoxetine 20 MG Capsule 40 MG PO (08:11)
[2020-05-27] MEDS: Gabapentin 400 MG Capsule PO ×2 (08:12→20:49)
[2020-05-27] MEDS: dilTIAZem CD 180 MG Capsule PO ×2 (08:12→20:49)
[2020-05-27] MEDS: Menthol/Lanolin/Calamine/Znox 113 GM Tube 1 APPLIC TOPICAL ×2 (08:13→20:51)
[2020-05-27 08:15] VITALS: BP 120/64; PULSE 91; RESP 16; TEMP 36.7; O2SAT 94
[2020-05-27] MEDS: HYDROcodone Bitartrate/Apap 5/325 Tablet PO ×2 (08:15→19:44)
[2020-05-27 10:00] VITALS: PULSE 92
[2020-05-27] MEDS: Ciprofloxacin 500 MG Tablet PO ×2 (10:42→20:49)
[2020-05-27 13:00] VITALS: BMI 43.6
--- NOTE | 2020-05-27 17:31 | NURSING ---
Refused to get OOB today, requested to get caught up on her rest. No complaints voiced.
[2020-05-27 18:56] VITALS: BP 151/84; PULSE 98; RESP 18; TEMP 36.9; O2SAT 94
[2020-05-27 20:03] VITALS: BMI 43.6
[2020-05-27] MEDS: Atorvastatin Calcium 20 MG Tablet PO (20:49)
[2020-05-27] MEDS: tiZANidine HCl 2 MG Tablet 4 MG PO (20:49)
[2020-05-27] MEDS: Capsaicin 0.025% 1 APPLIC Tube TOPICAL (20:50)
--- NOTE | 2020-05-28 02:51 | NURSING ---
REVIEWED AND AGREE WITH EDUCATION REVIEWER'S FUNCTIONAL ASSESSMENT AND HANDOFF CHARTING THIS SHIFT.
[2020-05-28] MEDS: HYDROcodone Bitartrate/Apap 5/325 Tablet PO (05:41)
[2020-05-28] MEDS: dexAMETHasone 4 MG Tablet 6 MG PO ×2 (05:41→16:28)
[2020-05-28] MEDS: Capsaicin 0.025% 1 APPLIC Tube TOPICAL ×2 (05:42→20:38)
[2020-05-28] MEDS: Nystatin Powder 15gm Bottle 1 APPLIC TOPICAL ×2 (05:44→20:36)
[2020-05-28 07:37] VITALS: BP 123/86; PULSE 86; RESP 16; TEMP 36.7; O2SAT 94
[2020-05-28] MEDS: dilTIAZem CD 180 MG Capsule PO ×2 (08:13→20:37)
[2020-05-28] MEDS: Senna/Docusate Sodium 1 Tablet 2 TABLET PO ×2 (08:13→20:37)
[2020-05-28] MEDS: FLUoxetine 20 MG Capsule 40 MG PO (08:13)
[2020-05-28] MEDS: Multivitamins,Ther W-Minerals Tablet 1 TABLET PO (08:13)
[2020-05-28] MEDS: Vitamin E 400 UNITS Capsule PO (08:13)
[2020-05-28] MEDS: Aspirin 81 MG TAB.CHEW PO (08:13)
[2020-05-28] MEDS: lamoTRIgine 100 MG Tablet 200 MG PO ×2 (08:14→20:36)
[2020-05-28] MEDS: Tolterodine Tartrate 2 MG CAP.SA PO (08:14)
[2020-05-28] MEDS: Pantoprazole Sodium 40 MG Tablet PO (08:14)
[2020-05-28] MEDS: Gabapentin 400 MG Capsule PO ×2 (08:14→20:35)
[2020-05-28] MEDS: Menthol/Lanolin/Calamine/Znox 113 GM Tube 1 APPLIC TOPICAL ×2 (08:18→20:38)
[2020-05-28 09:33] VITALS: BMI 43.6
[2020-05-28] MEDS: Ciprofloxacin 500 MG Tablet PO ×2 (10:22→20:37)
--- NOTE | 2020-05-28 10:51 | PN_ITS ---
Progress Note Day #6 ciprofloxacin for UTI Afebrile VSS Maintaining appropriate oxygen saturation on RA Did not really participate in PT Thursday and she did not get out of bed yesterday not motivated to do therapy Discussed with nursing - no problems that need addressed Reviewed the PT/OT/ST notes......poor motivation to do therapy Medication list reviewed. She has been having visual hallucinations at night. Seeing her dtr at her bedside when she was small........scared her and she is perseverating on this. Had a panic attack on Thursday and does not know what precipitated this. She is still having urinary incontinence....mostly because she can not make it to the toilet in time or she does not want to get up to the bedside commode? She is not incontinent of stool. alert, appears anxious, oriented X 3 slightly tremulous Lungs - CTA but diminished H- RRR, distant, no gallop abd - obese, soft, active BS's no guarding with palpation no significant ankle edema no rashes no calf tenderness Impressions 1. post stroke debility +/- steroids. 2. UTI - on Cipro 3. hx of BPD and now with hallucinations that are new......possibly due to C ipro 4. morbid obesity 5. Hyperglycemia due to steroids....HGBA1C was < 6 and she has no hx of DM. - she has been on this for 10 days now. DC the Cipro - she has already received her dose today Start tapering the Decadron check CBC, CMP in the AM Start Rocephin 1 GM IV daily or, IM if nursing unable to get an IV started, for 3 days total Xanax 0.125 mg TID PRN for a max of 9 doses to control the anxiety STROKE Vital Signs/Narrative: Vital Signs Temp Pulse Resp BP Pulse Ox 05/28/20 07:37 98.0 F 86 16 123/86 H 94 Inpatient E&M: 90520 Subs Hosp L2
--- NOTE | 2020-05-28 10:51 | CASEMGMT ---
Social Work IDT met with patient for Team Meeting. Discussed patient's progress in therapy. Pt is min to mod for bed mobility, x2 for sitting to standing, ambulating 30 ft with FWW at mod assist, min to modx2 for tub transfers, UE dressing set up, uses senior it business analyst for LE dressing but still total assist using x2. Pt using bed story at night but does not use bed story at home. Set toileting goal to begin using BSC for all toileting. Will order BSC at DC . Pt has to side step to get into bathroom at home. Set that goal as well with therapy. ST working on concentrating, attention, and pt is aware of deficits. Encouraged assist at DC with finances and med management. Explained [employer] NRD 05/28 and continued stay is not guaranteed. Recommending continued therapy as pt does not wan to transfer to SNF - the goal is to return home. Will continue to follow. Vi Faulkner, RETAIL TIRE SALES MANAGER TANK TERMINAL GAUGER
[2020-05-28] MEDS: Acetaminophen 325 MG Tablet 650 MG PO (11:36)
[2020-05-28] MEDS: ALPRAZolam 0.25 MG Tablet 0.125 MG PO (16:28)
[2020-05-28 19:23] VITALS: BP 140/88; PULSE 98; RESP 16; TEMP 36.6; O2SAT 96
[2020-05-28] MEDS: Atorvastatin Calcium 20 MG Tablet PO (20:36)
[2020-05-28] MEDS: tiZANidine HCl 2 MG Tablet 4 MG PO (20:37)
[2020-05-28 20:55] VITALS: BMI 43.6
[2020-05-28 22:00] VITALS: RESP 16
[2020-05-29 05:38] LABS: Hematocrit 37.6 % (37-47); Mean Corp Hgb Conc 31.9 g/dL (32-36); Mean Corpuscular Volume 87.9 fL (81-99); Mean Platelet Vol. 9.7 fl (6.2-12.0); Platelet Count 191 K/mm3 (150-450); RBC Distribution Width CV 15.5 % (11.6-14.6); RBC Distribution Width SD 49.2 fl (35.1-43.9); Red Blood Count 4.28 M/mm3 (4.2-5.4); White Blood Count 16.1 K/mm3 (4.4-11.0)
[2020-05-29 06:04] LABS: AST(SGOT) 25 U/L (15-37); Alanine Aminotransfer ALT/SGPT 75 U/L (13-56); Albumin, Serum 2.6 g/dL (3.2-5.0); Alkaline Phosphatase 86 U/L (45-117); Anion Gap 7 (5-15); BUN 32 mg/dL (7-18); BUN/Creat Ratio 42.2 RATIO (10-20); Calcium,Total 7.9 mg/dL (8.5-10.1); Chloride 104 mmol/L (98-107); Creatinine, Serum 0.76 mg/dL (0.55-1.02); EST Glomerular Filtration Rate 81 mL/min (>60); Est Glom Filt Rate - Afr Amer 98 mL/min (>60); Estimated Creatinine Clearance 74.44 ml/min; Globulin 2.7 g/dL (2.2-4.2); Glucose 204 mg/dL (74-106); Magnesium 2.4 mg/dL (1.6-2.6); Potassium 3.9 mmol/L (3.5-5.1); Protein, Total 5.3 g/dL (6.4-8.2); Sodium Level 136 mmol/L (136-145)
[2020-05-29] MEDS: Nystatin Powder 15gm Bottle 1 APPLIC TOPICAL ×2 (07:08→20:30)
[2020-05-29] MEDS: Capsaicin 0.025% 1 APPLIC Tube TOPICAL ×2 (07:08→20:24)
[2020-05-29] MEDS: Tolterodine Tartrate 2 MG CAP.SA PO (08:19)
[2020-05-29] MEDS: Multivitamins,Ther W-Minerals Tablet 1 TABLET PO (08:19)
[2020-05-29] MEDS: Pantoprazole Sodium 40 MG Tablet PO (08:19)
[2020-05-29] MEDS: dilTIAZem CD 180 MG Capsule PO ×2 (08:19→20:22)
[2020-05-29] MEDS: lamoTRIgine 100 MG Tablet 200 MG PO ×2 (08:19→20:23)
[2020-05-29] MEDS: Senna/Docusate Sodium 1 Tablet 2 TABLET PO (08:19)
[2020-05-29] MEDS: Aspirin 81 MG TAB.CHEW PO (08:19)
[2020-05-29] MEDS: Gabapentin 400 MG Capsule PO ×2 (08:19→20:23)
[2020-05-29] MEDS: FLUoxetine 20 MG Capsule 40 MG PO (08:19)
[2020-05-29] MEDS: Vitamin E 400 UNITS Capsule PO (08:19)
[2020-05-29] MEDS: dexAMETHasone 4 MG Tablet 6 MG PO ×2 (08:19→16:42)
[2020-05-29] MEDS: Menthol/Lanolin/Calamine/Znox 113 GM Tube 1 APPLIC TOPICAL ×2 (08:22→20:22)
[2020-05-29] MEDS: ALPRAZolam 0.25 MG Tablet 0.125 MG PO (08:25)
[2020-05-29 09:36] VITALS: BP 128/74; PULSE 104; RESP 16; TEMP 36.2; O2SAT 94
[2020-05-29 09:42] VITALS: PULSE 104
[2020-05-29 09:49] VITALS: BMI 43.6
[2020-05-29] MEDS: Ceftriaxone 1 GM/50 ML BAG IV (10:05)
[2020-05-29] MEDS: 0.9% Saline Lock 10 ML Syringe IV ×2 (10:07→18:43)
--- NOTE | 2020-05-29 15:08 | CT_ITS ---
STUDY: CT BRAIN WITHOUT CONTRAST REASON FOR EXAM: Female, 64 years old. F/U BLEED WITH COIL RADIATION DOSAGE (If Supplied By Facility): CTDIvol = ( 44.99 ) mGy, DLP = ( 796.11 ) mGycm TECHNIQUE: Transaxial CT imaging of the brain was performed without administration of intravenous contrast material. Individualized dose optimization techniques were used for this CT. COMPARISON: Noncontrast head CT dated January 27, 2020 FINDINGS: Stable position of the prepontine metallic coils, which results in significant streak artifact and limited visualization of the cerebellum/posterior fossa. Reidentification of small tentorial calcifications. Normal soft tissue structures. Normal calvarium. There is moderate cerebral atrophy with widening of the extra-axial spaces and ventricular dilatation. There are areas of decreased attenuation within the white matter tracts of the supratentorial brain, consistent with microvascular disease changes. Normal basal ganglia and thalami. Normal brainstem. Normal cerebellum. There is no intracranial hemorrhage. There are no findings of an acute ischemic infarction. Normal visualized paranasal sinuses. CT/Brain/Head without Contrast IMPRESSION: 1. Chronic ischemic and involutional changes of the brain. 2. Stable position of the prepontine metallic coils. Electronically Signed: Steve Gallo MD at 16:47 EDT , Service support ,
--- NOTE | 2020-05-29 16:26 | CASEMGMT ---
Social Work Spoke with pt and she has regressed in therapy. Pt stated she feels weak from UTI and legs aren't working right. Inquired about mood. Pt reports stable. Inquired about S.O. Pt reported to him having a lot of stress and not being supportive for her. She is encouraging him to go talk to someone. Pt stated they have been together for 20 years. Provided emotional and verbal support. Encouraged pt to keeping working hard and stay motivated because she cannot return home on rachel lift. Pt understands and states she is going home, she has no alternative plan. Will continue to follow. Vi Faulkner, PLASTERER JOURNEYMAN MARINE OPERATIONS COORDINATOR
--- NOTE | 2020-05-29 17:16 | PN_ITS ---
Progress Note Day #1 of 3 Rocephin ( had 4 doses of Cipro prior to Rocephin) Afebrile Vital signs stable. Maintaining appropriate oxygen saturation on room air Denies cephalgia currently. Continues to complain of anxiety and does not feel the Xanax 0.125 mg is beneficial. Steroids are currently being tapered and the ciprofloxacin was discontinued this morning. No N/V/SOB or cough. She is sleeping well at night. All lab was personally reviewed. FBS, BUN and the WBC are increased due to the decadron. Starting tapering Decadron on 05/28. Alert, NAD. TAlking with significant other. Lungs - CTA but diminished H - RRR Abd - soft and non-tender no calf tenderness Impressions 1. cephalgia - resolved with Decadron. 2. increased anxiety due to steroids and Cipro. Continue to taper steroids and the Cipro was discontinued this AM 3. debility post stroke. Had a set back over the week end......did minimal therapy on Thursday due to anxiety and then none on Thursday. Would not stand today but did do E stim and exercises sitting 4. Chronic back pain - stable DC the Xanax and start Klonopin 0.5 mg PO Q 8 hours for 9 doses and then DC Continue therapy Recommend she follow up with neurology post DC for treatment of suspected migraine cephalgia. Inpatient E&M: 26626 [facility] L1
[2020-05-29] MEDS: clonazePAM 0.5 MG Tablet PO (18:42)
[2020-05-29 19:20] VITALS: BP 147/84; PULSE 105; RESP 18; TEMP 37; O2SAT 96
[2020-05-29] MEDS: tiZANidine HCl 2 MG Tablet 4 MG PO (20:21)
[2020-05-29] MEDS: Atorvastatin Calcium 20 MG Tablet PO (20:23)
[2020-05-29 20:28] VITALS: BMI 43.6
[2020-05-29 22:00] VITALS: PULSE 105; RESP 16
[2020-05-30] MEDS: clonazePAM 0.5 MG Tablet PO ×3 (01:34→17:06)
[2020-05-30] MEDS: Nystatin Powder 15gm Bottle 1 APPLIC TOPICAL ×2 (06:48→22:02)
[2020-05-30] MEDS: Capsaicin 0.025% 1 APPLIC Tube TOPICAL ×2 (06:48→22:00)
[2020-05-30] MEDS: Multivitamins,Ther W-Minerals Tablet 1 TABLET PO (08:23)
[2020-05-30] MEDS: dexAMETHasone 4 MG Tablet 6 MG PO ×2 (08:23→16:22)
[2020-05-30] MEDS: Aspirin 81 MG TAB.CHEW PO (08:23)
[2020-05-30] MEDS: dilTIAZem CD 180 MG Capsule PO ×2 (08:24→22:01)
[2020-05-30] MEDS: Tolterodine Tartrate 2 MG CAP.SA PO (08:24)
[2020-05-30] MEDS: Vitamin E 400 UNITS Capsule PO (08:24)
[2020-05-30] MEDS: lamoTRIgine 100 MG Tablet 200 MG PO ×2 (08:24→22:01)
[2020-05-30] MEDS: Pantoprazole Sodium 40 MG Tablet PO (08:25)
[2020-05-30] MEDS: FLUoxetine 20 MG Capsule 40 MG PO (08:25)
[2020-05-30] MEDS: Gabapentin 400 MG Capsule PO ×2 (08:25→22:01)
[2020-05-30] MEDS: Menthol/Lanolin/Calamine/Znox 113 GM Tube 1 APPLIC TOPICAL ×2 (08:26→22:02)
[2020-05-30] MEDS: Ceftriaxone 1 GM/50 ML BAG IV (09:39)
[2020-05-30 09:49] VITALS: BP 146/88; PULSE 82; RESP 18; TEMP 36.4; O2SAT 94
[2020-05-30 10:00] VITALS: PULSE 82
[2020-05-30 12:11] VITALS: BMI 43.6
--- NOTE | 2020-05-30 16:09 | CASEMGMT ---
Social Work Pt's Saadclyde Jennings [phone], contacted to to assist with DC plans and assistance in the home. Pt would not qualify for Waiver assistance if she does not have WBS or is a rachel lift. Chio assisted pt in contacting [employer] to be assigned a [employer] C.M. to help connect with resources. Chio had conversation with pt about alternative DC plans and home may not be the safest option. Pt understand but not full receptive. Will continue to follow for discharge planning and support. Vi Faulkner, DELORES PYLEW
--- NOTE | 2020-05-30 18:37 | PCM.PN.BLA ---
Progress Note The anxiety is better today with the Klonopin. She has been up in the WC and did exercises in the chair. could not get to a full sandstone inspector repairer the parallel bars even with 2 person assist and could also not use the slide board due to resistance to lateral motion. She did stand and pivot into the WC today with 2 person assist. She completed grooming and oral care with set-up level only. She did upper body strengthening exercises. She slept better last night and looks much less anxious today. Less anxious, slept well last night, oriented X 3. working with the ST when I entered the room. Pleasant and cooperative. Lungs - no coughing, CTA, diminished H - RRR, distant abd - soft, NT no calf tenderness no rashes reviewed the CT done 05/29 and there is no evidence of intracerebral hemorrhage and no evidence of acute ischemic CVA Impressions 1. UTI - adverse reaction to Cipro which was DC'd. Now on Rocephin to finish out a appropriate course o initiate any activity with therapy and she is requiring max cuing. Often requiring 3 people to get her from Sit to stand and she does not get to a complete stand even with 3 person assist. Due to stroke? Decadron? personality? Likely multifactorial. Continue to taper steroids. 2. Generalized weakness - seems out of proportion to what I would expect from recent CVA after coiling? Poor conditioning prior to the stroke? she has a stressful situation at home........not motivated to get home even though she states she is going home? If the motivation to participate in therapy and performance do not start to improve will need to consider transferring to SNF due to lack of progress. Inpatient E&M: 74337 Subs Hosp L2
[2020-05-30 20:12] VITALS: BP 160/80; PULSE 102; RESP 16; TEMP 36.8; O2SAT 94
[2020-05-30] MEDS: Senna/Docusate Sodium 1 Tablet 2 TABLET PO (22:00)
[2020-05-30] MEDS: Atorvastatin Calcium 20 MG Tablet PO (22:01)
[2020-05-30] MEDS: tiZANidine HCl 2 MG Tablet 4 MG PO (22:01)
[2020-05-30] MEDS: 0.9% Saline Lock 10 ML Syringe IV (22:19)
[2020-05-30] MEDS: HYDROcodone Bitartrate/Apap 5/325 Tablet PO (22:25)
[2020-05-31] MEDS: clonazePAM 0.5 MG Tablet PO ×3 (02:10→17:40)
[2020-05-31] MEDS: Nystatin Powder 15gm Bottle 1 APPLIC TOPICAL ×2 (06:05→20:32)
[2020-05-31] MEDS: Pantoprazole Sodium 40 MG Tablet PO (07:41)
[2020-05-31] MEDS: lamoTRIgine 100 MG Tablet 200 MG PO ×2 (07:41→20:32)
[2020-05-31] MEDS: Senna/Docusate Sodium 1 Tablet 2 TABLET PO ×2 (07:41→20:32)
[2020-05-31] MEDS: FLUoxetine 20 MG Capsule 40 MG PO (07:41)
[2020-05-31] MEDS: dilTIAZem CD 180 MG Capsule PO ×2 (07:41→20:31)
[2020-05-31] MEDS: Multivitamins,Ther W-Minerals Tablet 1 TABLET PO (07:42)
[2020-05-31] MEDS: Gabapentin 400 MG Capsule PO ×2 (07:42→20:32)
[2020-05-31] MEDS: Vitamin E 400 UNITS Capsule PO (07:42)
[2020-05-31] MEDS: Aspirin 81 MG TAB.CHEW PO (07:42)
[2020-05-31] MEDS: Tolterodine Tartrate 2 MG CAP.SA PO (07:42)
[2020-05-31] MEDS: dexAMETHasone 4 MG Tablet 6 MG PO ×2 (07:42→17:40)
[2020-05-31 07:46] VITALS: BP 135/76; PULSE 92; RESP 16; TEMP 36.7; O2SAT 93
[2020-05-31] MEDS: Menthol/Lanolin/Calamine/Znox 113 GM Tube 1 APPLIC TOPICAL ×2 (07:48→20:31)
[2020-05-31 09:33] VITALS: BMI 43.6
[2020-05-31] MEDS: Ceftriaxone 1 GM/50 ML BAG IV (10:28)
[2020-05-31] MEDS: HYDROcodone Bitartrate/Apap 5/325 Tablet PO ×2 (12:14→20:33)
--- NOTE | 2020-05-31 15:21 | RAD_ITS ---
STUDY: X-RAY - PELVIS REASON FOR EXAM: Female, 64 years old. Fall today. Right sided pain. TECHNIQUE: One view of the pelvis was obtained. COMPARISON: Prior pelvis radiograph of 05-14-16 FINDINGS: There is a non-specific bowel gas pattern. Normal visualized soft tissue structures. The pelvic ring is intact without a fracture deformity. Normal visualized bilateral superior and inferior pubic rami. Degenerative changes of the symphysis pubis. Normal ischial tuberosities. Normal visualized right femoral head. Normal right acetabulum. Normal visualized left femoral head. Normal left acetabulum. RAD/Pelvis 1 or 2 Views IMPRESSION: Negative for fracture or dislocation of the hips. Electronically Signed: Shanell Butts MD at 15:52 EDT , Service support ,
[2020-05-31] MEDS: tiZANidine HCl 2 MG Tablet 4 MG PO (20:31)
[2020-05-31] MEDS: traZODone 100 MG Tablet PO (20:32)
[2020-05-31] MEDS: Atorvastatin Calcium 20 MG Tablet PO (20:32)
[2020-05-31] MEDS: 0.9% Saline Lock 10 ML Syringe IV (20:33)
[2020-05-31] MEDS: Capsaicin 0.025% 1 APPLIC Tube TOPICAL (20:39)
[2020-05-31 22:00] VITALS: BP 163/98; PULSE 104; RESP 18; TEMP 36.8; O2SAT 92
[2020-05-31 23:11] VITALS: BMI 43.6
[2020-06-01] MEDS: clonazePAM 0.5 MG Tablet PO ×2 (01:17→12:15)
[2020-06-01] MEDS: Capsaicin 0.025% 1 APPLIC Tube TOPICAL (05:56)
[2020-06-01] MEDS: Nystatin Powder 15gm Bottle 1 APPLIC TOPICAL ×2 (05:57→22:00)
[2020-06-01 07:30] VITALS: BP 137/93; PULSE 88; RESP 16; TEMP 36.6; O2SAT 95
[2020-06-01] MEDS: Aspirin 81 MG TAB.CHEW PO (08:56)
[2020-06-01] MEDS: FLUoxetine 20 MG Capsule 40 MG PO (08:56)
[2020-06-01] MEDS: Tolterodine Tartrate 2 MG CAP.SA PO (08:57)
[2020-06-01] MEDS: dilTIAZem CD 180 MG Capsule PO ×2 (08:57→20:15)
[2020-06-01] MEDS: lamoTRIgine 100 MG Tablet 200 MG PO ×2 (08:57→20:15)
[2020-06-01] MEDS: Multivitamins,Ther W-Minerals Tablet 1 TABLET PO (08:57)
[2020-06-01] MEDS: Pantoprazole Sodium 40 MG Tablet PO (08:57)
[2020-06-01] MEDS: Vitamin E 400 UNITS Capsule PO (08:57)
[2020-06-01] MEDS: dexAMETHasone 4 MG Tablet 6 MG PO ×2 (08:59→18:05)
[2020-06-01 09:00] VITALS: PULSE 96
[2020-06-01] MEDS: Senna/Docusate Sodium 1 Tablet 2 TABLET PO ×2 (09:00→20:15)
[2020-06-01] MEDS: Gabapentin 400 MG Capsule PO ×2 (09:00→20:15)
[2020-06-01] MEDS: HYDROcodone Bitartrate/Apap 5/325 Tablet PO ×2 (09:08→20:20)
[2020-06-01] MEDS: Menthol/Lanolin/Calamine/Znox 113 GM Tube 1 APPLIC TOPICAL ×2 (09:11→20:22)
[2020-06-01 13:52] VITALS: BMI 43.6
[2020-06-01 19:40] VITALS: BP 137/89; PULSE 98; RESP 20; TEMP 36.9; O2SAT 94
[2020-06-01] MEDS: tiZANidine HCl 2 MG Tablet 4 MG PO (20:14)
[2020-06-01] MEDS: Atorvastatin Calcium 20 MG Tablet PO (20:15)
[2020-06-01] MEDS: traZODone 100 MG Tablet PO (20:15)
[2020-06-02] MEDS: Capsaicin 0.025% 1 APPLIC Tube TOPICAL (05:07)
[2020-06-02] MEDS: Nystatin Powder 15gm Bottle 1 APPLIC TOPICAL ×2 (05:08→20:47)
[2020-06-02 07:09] VITALS: BP 122/98; PULSE 100; RESP 20; TEMP 36.6; O2SAT 95
[2020-06-02] MEDS: Aspirin 81 MG TAB.CHEW PO (08:12)
[2020-06-02] MEDS: dexAMETHasone 4 MG Tablet 6 MG PO ×2 (08:12→16:22)
[2020-06-02] MEDS: Multivitamins,Ther W-Minerals Tablet 1 TABLET PO (08:13)
[2020-06-02] MEDS: Menthol/Lanolin/Calamine/Znox 113 GM Tube 1 APPLIC TOPICAL ×2 (08:14→20:46)
[2020-06-02] MEDS: Vitamin E 400 UNITS Capsule PO (08:14)
[2020-06-02 08:15] VITALS: O2SAT 95
[2020-06-02] MEDS: Gabapentin 400 MG Capsule PO ×2 (08:15→20:46)
[2020-06-02] MEDS: lamoTRIgine 100 MG Tablet 200 MG PO ×2 (08:15→20:46)
[2020-06-02] MEDS: dilTIAZem CD 180 MG Capsule PO ×2 (08:15→20:46)
[2020-06-02] MEDS: Tolterodine Tartrate 2 MG CAP.SA PO (08:15)
[2020-06-02] MEDS: Pantoprazole Sodium 40 MG Tablet PO (08:15)
[2020-06-02] MEDS: Senna/Docusate Sodium 1 Tablet 2 TABLET PO ×2 (08:16→20:45)
[2020-06-02] MEDS: FLUoxetine 20 MG Capsule 40 MG PO (08:16)
[2020-06-02 10:46] VITALS: BMI 43.6
[2020-06-02 19:46] VITALS: BP 138/86; PULSE 98; RESP 17; TEMP 36.7; O2SAT 96
[2020-06-02] MEDS: tiZANidine HCl 2 MG Tablet 4 MG PO (20:46)
[2020-06-02] MEDS: Atorvastatin Calcium 20 MG Tablet PO (20:46)
[2020-06-02] MEDS: traZODone 100 MG Tablet PO (20:46)
[2020-06-03] MEDS: Nystatin Powder 15gm Bottle 1 APPLIC TOPICAL ×2 (05:21→20:15)
[2020-06-03] MEDS: Tolterodine Tartrate 2 MG CAP.SA PO (08:30)
[2020-06-03] MEDS: Gabapentin 400 MG Capsule PO ×2 (08:30→20:15)
[2020-06-03] MEDS: Pantoprazole Sodium 40 MG Tablet PO (08:30)
[2020-06-03] MEDS: Aspirin 81 MG TAB.CHEW PO (08:30)
[2020-06-03] MEDS: Multivitamins,Ther W-Minerals Tablet 1 TABLET PO (08:30)
[2020-06-03] MEDS: Vitamin E 400 UNITS Capsule PO (08:30)
[2020-06-03] MEDS: dexAMETHasone 4 MG Tablet 6 MG PO (08:31)
[2020-06-03] MEDS: lamoTRIgine 100 MG Tablet 200 MG PO ×2 (08:31→20:15)
[2020-06-03] MEDS: dilTIAZem CD 180 MG Capsule PO ×2 (08:31→20:14)
[2020-06-03] MEDS: FLUoxetine 20 MG Capsule 40 MG PO (08:32)
[2020-06-03] MEDS: Senna/Docusate Sodium 1 Tablet 2 TABLET PO ×2 (08:32→20:16)
[2020-06-03] MEDS: Menthol/Lanolin/Calamine/Znox 113 GM Tube 1 APPLIC TOPICAL ×2 (08:34→20:14)
[2020-06-03 09:11] VITALS: BP 146/95; PULSE 101; RESP 20; TEMP 36.5; O2SAT 93
[2020-06-03 10:00] VITALS: PULSE 101
[2020-06-03 11:30] VITALS: BMI 43.6
--- NOTE | 2020-06-03 12:00 | NURSING ---
Offered to get patient up for meal, pt refused and requested to stay in bed to rest, will continue to encourage.
[2020-06-03] MEDS: dexAMETHasone 4 MG Tablet PO (15:48)
[2020-06-03] MEDS: Magnesium Hydroxide 30 ML UDC PO (15:48)
[2020-06-03] MEDS: tiZANidine HCl 2 MG Tablet 4 MG PO (20:13)
[2020-06-03] MEDS: traZODone 100 MG Tablet PO (20:14)
[2020-06-03] MEDS: Atorvastatin Calcium 20 MG Tablet PO (20:15)
[2020-06-03] MEDS: Capsaicin 0.025% 1 APPLIC Tube TOPICAL (20:16)
[2020-06-03 21:33] VITALS: BP 140/90; PULSE 104; RESP 16; TEMP 36.7; O2SAT 96
[2020-06-03 22:00] VITALS: PULSE 104
[2020-06-03 22:55] VITALS: BMI 43.6
[2020-06-04] MEDS: Nystatin Powder 15gm Bottle 1 APPLIC TOPICAL (04:53)
[2020-06-04 06:27] LABS: Anion Gap 6 (5-15); BUN 28 mg/dL (7-18); BUN/Creat Ratio 44.4 RATIO (10-20); Calcium,Total 7.7 mg/dL (8.5-10.1); Chloride 104 mmol/L (98-107); Creatinine, Serum 0.63 mg/dL (0.55-1.02); EST Glomerular Filtration Rate 100 mL/min (>60); Est Glom Filt Rate - Afr Amer 122 mL/min (>60); Estimated Creatinine Clearance 89.81 ml/min; Glucose 215 mg/dL (74-106); Magnesium 2.3 mg/dL (1.6-2.6); Phosphorus 2.3 mg/dL (2.5-4.9); Potassium 3.8 mmol/L (3.5-5.1); Sodium Level 139 mmol/L (136-145)
[2020-06-04 07:28] VITALS: BP 129/82; PULSE 105; RESP 18; TEMP 36.8; O2SAT 92
[2020-06-04] MEDS: Aspirin 81 MG TAB.CHEW PO (07:59)
[2020-06-04] MEDS: Vitamin E 400 UNITS Capsule PO (07:59)
[2020-06-04] MEDS: lamoTRIgine 100 MG Tablet 200 MG PO ×2 (07:59→22:19)
[2020-06-04] MEDS: Tolterodine Tartrate 2 MG CAP.SA PO (07:59)
[2020-06-04] MEDS: dexAMETHasone 4 MG Tablet PO ×2 (07:59→16:34)
[2020-06-04] MEDS: Multivitamins,Ther W-Minerals Tablet 1 TABLET PO (07:59)
[2020-06-04] MEDS: dilTIAZem CD 180 MG Capsule PO ×2 (07:59→22:20)
[2020-06-04] MEDS: FLUoxetine 20 MG Capsule 40 MG PO (08:00)
[2020-06-04] MEDS: Gabapentin 400 MG Capsule PO ×2 (08:00→22:19)
[2020-06-04] MEDS: Pantoprazole Sodium 40 MG Tablet PO (08:00)
[2020-06-04] MEDS: Senna/Docusate Sodium 1 Tablet 2 TABLET PO ×2 (08:01→22:19)
[2020-06-04] MEDS: Menthol/Lanolin/Calamine/Znox 113 GM Tube 1 APPLIC TOPICAL ×2 (08:02→22:20)
[2020-06-04 10:00] VITALS: PULSE 104
[2020-06-04] MEDS: Bisacodyl 10 MG Suppository RECTAL (10:33)
[2020-06-04 10:51] VITALS: BMI 43.6
--- NOTE | 2020-06-04 12:18 | CASEMGMT ---
Team meeting held today with pt present. Pt is receiving PT/OT/ST however, pt presenting with low motivation and limited progress at this time. 2-3 Max A assist to help pt stand. Pt unable to ambulate at this time. Mod A for bathing and if at edge of bed min A for lower body dressing and if in WC total assist. Toileting 2-3 assist, rachel lift or bedpan. Speech seeing pt for swollowing, word finding, and medical management and finances. SW discussed with pt that NRD is today and pt is not progressing with therapy. Discussed alternative plan and pt does state she is agreeable to go to [facility] or [facility] at time of discharge. STEFANIE will follow up for discharge planning. TAVIA Ramirez
--- NOTE | 2020-06-04 12:48 | CASEMGMT ---
Social Work SW spoke with [facility] and [facility]. Both facilities have beds available. Referrals faxed and will await determination if they can accept. TAVIA Ramirez
--- NOTE | 2020-06-04 14:04 | PN_ITS ---
Progress Note Devorah was seen on team rounds today. No family was present. Afebrile VSS Maintaining appropriate oxygen saturation on RA Oral intake is good Discussed with nursing - Toña is not really motivated to get out of bed, use the bedside commode or initiate movement. Reviewed the PT/OT/ST notes - she is not progressing in therapy. 10 days ago she was ambulating 30 ft and for the past 10 days she has not ambulated at all. It is taking 3 people to get her from sitting to standing and she does not even make it fully upright. She is total assistance for lower body dressing, toileting, toilet transfer. She continues to be incontinent of urine and she is going on the bedpan now. there is no physical reason why she can not use her legs. No change in pain. she has good sensation. The XRAYS after she fell on her backside last week when standing in the parallel bars were negative for fracture or dislocation. She does not present as being depressed. She is eating well, sleeping well, talking freely with staff and her boyfriend on the phone. She is not irritable or overly emotional. The increased anxiety is overall better but, she feels like she is going to have a panic attack everytime she is with therapy and they even talk about standing. she says she is week however she has 5/5 strength in the UE's and she can raise the LE's against gravity. She has a little drift with the left leg but it does not touch the bed. I talked with her on Thursday about her failure to progress and she knew she was going to have to be down graded to an SNF if she did not start to show progress. She tells me that she has an upcoming appt with someone at the counselling center who specializes in PTSD and panic disorder. She has not seen her airport operations duty manager at the counselling center since Dec? Medication list reviewed. alert, oriented. Affect is more flat today L - CTA and has better air exchange in the bases today. H- irreg today with increased resting HR. The Cardizem was just increased to 240 mg BID today. mild ankle edema....TEDS in place...she is sitting in the recliner with her legs dependent abd - soft, NT Impressions 1. BPD 2. anxiety with panic attacks.......started when she was on Cipro and higher dose steroids for severe cephalgia......got worse when she had a fall in the parallel bars 3. post stroke debility I spoke with her outpatient case manager Vi from the counselling center about the situation and she recommended either increasing the Lamictal to 225 BID or adding Abilify to the current drug regimen. Inpatient E&M: [id number] Subs Hosp L2
[2020-06-04 19:07] VITALS: BP 151/94; PULSE 107; RESP 18; TEMP 37; O2SAT 95
[2020-06-04 22:15] VITALS: PULSE 107; RESP 18; O2SAT 95; BMI 43.6
[2020-06-04] MEDS: Atorvastatin Calcium 20 MG Tablet PO (22:19)
[2020-06-04] MEDS: tiZANidine HCl 2 MG Tablet 4 MG PO (22:19)
[2020-06-04] MEDS: traZODone 100 MG Tablet PO (22:19)
[2020-06-05] MEDS: Nystatin Powder 15gm Bottle 1 APPLIC TOPICAL ×2 (04:46→21:50)
[2020-06-05 07:30] VITALS: BP 125/94; PULSE 106; RESP 18; TEMP 36.6; O2SAT 93
[2020-06-05] MEDS: Pantoprazole Sodium 40 MG Tablet PO (07:46)
[2020-06-05] MEDS: Aspirin 81 MG TAB.CHEW PO (07:46)
[2020-06-05] MEDS: Vitamin E 400 UNITS Capsule PO (07:46)
[2020-06-05] MEDS: Multivitamins,Ther W-Minerals Tablet 1 TABLET PO (07:46)
[2020-06-05] MEDS: FLUoxetine 20 MG Capsule 40 MG PO (07:46)
[2020-06-05] MEDS: Gabapentin 400 MG Capsule PO ×2 (07:46→21:49)
[2020-06-05] MEDS: lamoTRIgine 100 MG Tablet 200 MG PO (07:46)
[2020-06-05] MEDS: Tolterodine Tartrate 2 MG CAP.SA PO (07:46)
[2020-06-05] MEDS: dexAMETHasone 4 MG Tablet PO ×2 (07:46→17:45)
[2020-06-05] MEDS: dilTIAZem CD 180 MG Capsule PO (07:47)
[2020-06-05] MEDS: Menthol/Lanolin/Calamine/Znox 113 GM Tube 1 APPLIC TOPICAL ×2 (07:47→21:50)
[2020-06-05] MEDS: HYDROcodone Bitartrate/Apap 5/325 Tablet PO (07:50)
[2020-06-05 09:45] VITALS: PULSE 100
[2020-06-05 11:08] VITALS: BMI 43.6
[2020-06-05] MEDS: Na Biphos/Potassium Phosphate PACKET 1 PACKET PO ×2 (14:30→21:49)
--- NOTE | 2020-06-05 15:54 | CASEMGMT ---
Social Work Both facilities can accept pt. Spoke with pt and [facility]. [facility] to start precert with DC date 06/07, if outcome is received by then. Otherwise, pt will admit under [facility]. Will schedule cot transport for pt and complete HENS. Plan: DC to [facility] 06/07 DELORES SewellW
--- NOTE | 2020-06-05 19:44 | PCM.PN.BLA ---
Progress Note AF VSS- however the resting HR is increased and the BPis not adequately controlled Therapy notes reviewed All lab was personally reviewed. Sleeping well. Not c/o pain. Has lost approximately 2 lbs since admission She is getting up in the chair again......with the rachel. Alert,NAD, talking on the phone when I entered the room. Makes good eye contact. Lungs- CTA but diminished. Heart - regular today but with increased resting HR...possibly due to the steroids which are being tapered. abd - soft and NT no calf pain. Impressions 1. debility due to CVA 2. BPD 3. hyperglycemia due to steroids 4. Hypophosphatemia 5. HTN 6. PAF supplement the phos check accucheck QID for the next 48H Increase the Cardizem to 240 mg BID Restart the Apixaban .....I held off a few days because of the fall last week recheck phos and BMP in a few days Lamictal increased to 225mg BID after talking with MAINTENANCE PLANNER that is her heel caser [facility] Inpatient E&M: [id number] Subs Hosp L2
[2020-06-05 21:30] VITALS: BP 132/92; PULSE 106; RESP 20; TEMP 36.3; O2SAT 93; BMI 43.6
[2020-06-05] MEDS: dilTIAZem CD 240 MG Capsule PO (21:48)
[2020-06-05] MEDS: Atorvastatin Calcium 20 MG Tablet PO (21:48)
[2020-06-05] MEDS: tiZANidine HCl 2 MG Tablet 4 MG PO (21:48)
[2020-06-05] MEDS: Senna/Docusate Sodium 1 Tablet 2 TABLET PO (21:49)
[2020-06-05] MEDS: lamoTRIgine 150 MG Tablet 225 MG PO (21:49)
[2020-06-05] MEDS: APIXABAN 5 MG TABLET PO (21:49)
[2020-06-05] MEDS: traZODone 100 MG Tablet PO (21:49)
[2020-06-05] MEDS: Insulin Lispro 100 UNIT/ML INSULN.PEN SC (22:08)
[2020-06-05 22:31] LABS: Bedside Glucose 238 mg/dL (70-110)
[2020-06-06] MEDS: Capsaicin 0.025% 1 APPLIC Tube TOPICAL (06:00)
[2020-06-06] MEDS: Nystatin Powder 15gm Bottle 1 APPLIC TOPICAL ×2 (06:01→22:34)
[2020-06-06] MEDS: Na Biphos/Potassium Phosphate PACKET 1 PACKET PO ×3 (06:02→22:33)
[2020-06-06 07:10] LABS: Bedside Glucose 206 mg/dL (70-110)
[2020-06-06 07:30] VITALS: BP 122/66; PULSE 104; RESP 16; TEMP 36.9; O2SAT 92
[2020-06-06] MEDS: Aspirin 81 MG TAB.CHEW PO (08:06)
[2020-06-06] MEDS: Multivitamins,Ther W-Minerals Tablet 1 TABLET PO (08:06)
[2020-06-06] MEDS: dexAMETHasone 4 MG Tablet PO ×2 (08:06→17:20)
[2020-06-06] MEDS: Vitamin E 400 UNITS Capsule PO (08:07)
[2020-06-06] MEDS: APIXABAN 5 MG TABLET PO ×2 (08:07→22:33)
[2020-06-06] MEDS: Tolterodine Tartrate 2 MG CAP.SA PO (08:07)
[2020-06-06] MEDS: HYDROcodone Bitartrate/Apap 5/325 Tablet PO (08:07)
[2020-06-06] MEDS: dilTIAZem CD 240 MG Capsule PO ×2 (08:07→22:33)
[2020-06-06] MEDS: lamoTRIgine 150 MG Tablet 225 MG PO ×2 (08:08→22:32)
[2020-06-06] MEDS: FLUoxetine 20 MG Capsule 40 MG PO (08:09)
[2020-06-06] MEDS: Pantoprazole Sodium 40 MG Tablet PO (08:09)
[2020-06-06 08:10] VITALS: PULSE 104
[2020-06-06] MEDS: Insulin Lispro 100 UNIT/ML INSULN.PEN SC ×4 (08:10→22:53)
[2020-06-06] MEDS: Gabapentin 400 MG Capsule PO ×2 (08:10→22:33)
[2020-06-06] MEDS: Menthol/Lanolin/Calamine/Znox 113 GM Tube 1 APPLIC TOPICAL ×2 (08:14→22:33)
[2020-06-06 12:15] LABS: Bedside Glucose 167 mg/dL (70-110)
--- NOTE | 2020-06-06 13:41 | PN_ITS ---
Progress Note Blood sugars are coming down with tapering the Decadron. FBS today is 206 and the blood sugar at lunch was 167. COVID-19 is negative. MM are dry and she was instructed to increase fluid intake. Lungs - good air exchange with no wheezes or rales H - irreg, no gallop abd -soft, NT, BS's present in all quadrants minimal ankle edema with no pretibial edema today no skin breakdown and no rashes Impressions 1. hyperglycemia with no hx of DM - due to Decadron.....BS's are not terribly elevated and the Decadron is being tapered.....will not DC on SSI but will continue to taper steroids 2. anxiety and panic surrounding efforts to stand........due to fall recently? anxiety started when she was on Cipro and Decadron. 3. hypophosphatemia - on a phos supplement 4. post stroke debility 5. AF - Eliquis restarted - repeat CT scan in rehab showed no evidence of bleed. 6. complaining she can not stand or move her legs but she has good strength? I think this is more related to anxiety/panic about standing than weakness. 7. BPD - Lamictal dose increased due to flat affect......still eating well, sleeping well, interacting with staff, talking on the phone, getting up to the chair Plan DC to [facility] tomorrow Inpatient E&M: [id number] Subs Hosp L2
--- NOTE | 2020-06-06 14:05 | TREXTCAR_ITS ---
- Diet 05/09/20 12:44 Diet: Cardiac: Calorie-Controlled Food consistency:: Soft Liquid Consistency:: Regular/Thin Is pt able to select menu?: Yes Diet Comments: Distant supervision How many daily calories?: 1999 calorie - Routine Orders/Code Status Enema Type: Fleetz Enema Frequency: Daily PRN Suppository Type: Dulcolax 10mg Suppository Frequency: Daily PRN Routine Lab Work: - - BMP. 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 Rosas Current Visit: Yes (2) Hemorrhagic cerebrovascular accident (CVA) Status: Acute Comment: due to ruptured aneursym Lt PICA on 04/26/20 Current Visit: Yes (3) Status post coil embolization of cerebral aneurysm Status: Acute Comment: on 04/25/[address] Rosas at [facility] Current Visit: Yes (4) Bipolar disorder Status: Chronic Current Visit: Yes (5) Urinary incontinence Status: Chronic Comment: Chronically on Toviaz Current Visit: Yes (6) Persistent atrial fibrillation Status: Chronic Comment: normally on Eliquis Current Visit: No (7) DDD (degenerative disc disease), lumbar Status: Chronic Current Visit: No (8) Segmental and somatic dysfunction of thoracic region Status: Chronic Current Visit: No (9) Segmental and somatic dysfunction of pelvic region Status: Chronic Current Visit: No (10) Segmental and somatic dysfunction of lumbar region Status: Chronic Current Visit: No (11) Nonischemic cardiomyopathy Status: Chronic Comment: Echocardiogram in June 2019 showed a 55% ejection fraction with no wall motion abnormalities. There was mild concentric left ventricular hypertrophy. The left ventricular systolic function had improved from the prior study. Current Visit: No (12) Hyperlipidemia Status: Chronic Current Visit: No (13) Essential (primary) hypertension Status: Chronic Current Visit: No (14) Morbid obesity with BMI of 40.0-44.9, adult Status: Chronic Current Visit: Yes (15) Tobacco dependence in remission Status: Chronic Comment: quit in October of 1999 Current Visit: Yes (16) Alcohol dependence in remission Status: Chronic Comment: quit in 2011? Current Visit: Yes (17) Venous insufficiency of both lower extremities Status: Chronic Current Visit: Yes (18) Chronic anticoagulation Status: Chronic Comment: With Eliquis for atrial fibrillation. Currently being held in light of recent hemorrhagic CVA due to rupture of aneurysm PICA Current Visit: Yes (19) Inflammatory polyarthropathy Status: Chronic Current Visit: Yes (20) CABRERA (nonalcoholic steatohepatitis) Status: Chronic Current Visit: Yes (21) Vitamin D deficiency Status: Chronic Current Visit: Yes (22) Restless leg syndrome Status: Chronic Current Visit: Yes (23) Left atrial enlargement Status: Chronic Current Visit: Yes (24) Diplopia Status: Acute Current Visit: Yes (25) Subarachnoid hemorrhage due to ruptured aneurysm Status: Acute Comment: acute -associated with interventricular hemorrage on 04/26/20 1 day after coiling of the L PICA (04/25/20) Current Visit: Yes (26) Generalized anxiety disorder with panic attacks Status: Acute Current Visit: Yes (27) Drug-induced hyperglycemia Status: Acute Current Visit: Yes (28) Dysphagia Status: Chronic Comment: predated the stroke Current Visit: Yes (29) Low HDL (under 40) Status: Chronic Current Visit: Yes (30) Migraine headache without aura Status: Chronic Comment: sx consistent with Migraine and there is a FH but, she has not been seen by neurology and is not on tx for migraines. Current Visit: Yes (31) Overactive bladder Status: Chronic Current Visit: Yes (32) Pulmonary HTN Status: Chronic Current Visit: Yes (33) UTI (urinary tract infection) Status: Resolved Comment: due to E. Coli Current Visit: Yes (34) Adverse drug reaction Status: Acute Comment: due to Cipro - hallucinations Current Visit: Yes - Allergies/Procedures Done in Hospital Allergies/Adverse Reactions: Allergies morphine Allergy (Verified 02/27/20 13:25) Itching nifedipine [From Procardia] Adverse Reaction (Verified 02/27/20 13:25) Causes elevated BP Procedures: None - Type of Care/Length of Stay Estimated LOS: Convalescent Care Less Than 30 days Type of Care Needed: Skilled Rehab Potential: Fair Prognosis: Fair - Additional Orders/Day of Discharge H&P will serve as current which was dated: 05/09/20 Day of Discharge: 06/07/20 - Dietary and Speech Recommendations Dietitian Recommendations/Changes: Continue Cardiac:2000 Calorie controlled diet; texture modifications per AGRICULTURAL TECHNICAL OFFICER. Speech Linguistic Eval Summary: TRI-III completed this date ? Pt presents w/ moderate expressive and receptive deficits s/p CVA w/ skilled ST intervention recommended targeting attention, memory, word retrieval, fluency and functional cognitive tasks ? including nonprofit financial controller tasks and medication management ? to improve cognitive function to/near baseline to ensure the highest possible reilly of independent functioning upon discharge home. - Follow Up Care Primary Care Physician: Osiel Grimaldo Chi, MD [Primary Care Provider] - Please follow up with your Primary Care Physician in: 7-10 days Please Follow Up With: counselling center When: has appt for June Please Follow Up With: neurology
--- NOTE | 2020-06-06 14:21 | DS.PCM_ITS ---
Discharge Date and Diagnosis - Problem List Patient Problems: Active and Suspected Problems (Last Reviewed 05/09/20 @ 14:[address] 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 Serrano Hemorrhagic cerebrovascular accident (CVA) (Acute) due to ruptured aneursym Lt PICA on 04/26/20 Status post coil embolization of cerebral aneurysm (Acute) on 04/25/[address] Serrano at [facility] Diplopia (Acute) Subarachnoid hemorrhage due to ruptured aneurysm (Acute) acute -associated with interventricular hemorrage on 04/26/20 1 day after coiling of the L PICA (04/25/20) Generalized anxiety disorder with panic attacks (Acute) Drug-induced hyperglycemia (Acute) Adverse drug reaction (Acute) due to Cipro - hallucinations Date of Admission: 05/08/20 Date of Discharge: 06/07/20 - Primary Discharge Diagnosis Acute Problems: Active Problems (Last Reviewed 05/09/20 @ 14:[address] Taisha Mcnulty DO) Physical debility (Acute) due to hemorrhagic CVA/SAH on 05/26/20 due to recurrent left PICA aneurysm with coiling done at [facility] by Dr. Serrano Hemorrhagic cerebrovascular accident (CVA) (Acute) due to ruptured aneursym Lt PICA on 04/26/20 Status post coil embolization of cerebral aneurysm (Acute) on 04/25/[address] Serrano at [facility] Diplopia (Acute) - resolved Subarachnoid hemorrhage due to ruptured aneurysm (Acute) acute -associated with interventricular hemorrage on 04/26/20 1 day after coiling of the L PICA (04/25/20) Generalized anxiety disorder with panic attacks on chronic BPD/depression (Acute) Drug-induced hyperglycemia (Acute) Adverse drug reaction (Acute) due to Cipro - hallucinations Suspected Problems: Migraine cephalgia without Aura. She has not seen a neurologist for this and has never been formally diagnosed but, she has photophobia, phonophobia, N/V with the MARINO's and prefers to go to sleep in a dark room which helps the MARINO resolve. - Secondary Discharge Diagnosis Chronic Problems: Chronic Problems (Last Reviewed 05/09/20 @ 14:[address] Ria Sementi, DO) Bipolar disorder (Chronic) Urinary incontinence (Chronic) Chronically on Toviaz Morbid obesity with BMI of 40.0-44.9, adult (Chronic) Tobacco dependence in remission (Chronic) quit in October of 1999 Alcohol dependence in remission (Chronic) quit in 2011? Venous insufficiency of both lower extremities (Chronic) Chronic anticoagulation (Chronic) With Eliquis for atrial fibrillation. Currently being held in light of recent hemorrhagic CVA due to rupture of aneurysm PICA Inflammatory polyarthropathy (Chronic) CABRERA (nonalcoholic steatohepatitis) (Chronic) Vitamin D deficiency (Chronic) Restless leg syndrome (Chronic) Left atrial enlargement (Chronic) Dysphagia (Chronic) predated the stroke Low HDL (under 40) (Chronic) Migraine headache without aura (Chronic) sx consistent with Migraine and there is a FH but, she has not been seen by neurology and is not on tx for migraines. Overactive bladder (Chronic) Pulmonary HTN (Chronic) Persistent atrial fibrillation (Chronic) normally on Eliquis DDD (degenerative disc disease), lumbar (Chronic) Segmental and somatic dysfunction of thoracic region (Chronic) Segmental and somatic dysfunction of pelvic region (Chronic) Segmental and somatic dysfunction of lumbar region (Chronic) Nonischemic cardiomyopathy (Chronic) Echocardiogram in June 2019 showed a 55% ejection fraction with no wall motion abnormalities. There was mild concentric left ventricular hypertrophy. The left ventricular systolic function had improved from the prior study. Hyperlipidemia (Chronic) Essential (primary) hypertension (Chronic) Hospital Course and Treatment Imaging Results: Clinical Impression(s) from Imaging Studies Brain CT 05/29/20 15:08 IMPRESSION: 1. Chronic ischemic and involutional changes of the brain. 2. Stable position of the prepontine metallic coils. Electronically Signed: Steve Gallo MD at 16:47 EDT , Service support , Pelvis X-Ray 05/31/20 15:21 IMPRESSION: Negative for fracture or dislocation of the hips. Electronically Signed: Shanell Butts MD at 15:52 EDT , Service support , none Operations: None Procedures: - - overnight trending possible ox. No significant desaturation < 90%. Summary of Care Provided: Toña Storey is a 64 year old F with a past medical history of essential hypertension, hyperlipidemia, morbid obesity, overactive bladder, bipolar disorder, tobacco dependence in remission, alcohol dependence in remission, inflammatory polyarthropathy, chronic urinary incontinence, persistent atrial fibrillation, chronic anticoagulation with Eliquis, history of nonischemic cardiomyopathy ( resolved), left ventricular hypertrophy, CABRERA, restless leg syndrome, left atrial enlargement and pulmonary HTN evident on PFT's in 2016 who was [facility] for an elective coiling of a PICA aneurysm by Dr. Serrano. She had been previously coiled but, had recurred. There were no complications during the procedure but, on 04/26/20 she had a SAH and interventricular hemorrhage which I presume was due to leaking or rupture of the aneurysm. She was also diagnosed with Septic shock requiring pressors due to UTI with Staph Simulans. She had hypotension and a junctional rhythm at that time. An ECHO revealed a EF of 68% and LVH had resolved. She had moderate LAE. She was transferred to the inpt Rehab unit at [facility] on 05/08/20 for 3 hours of therapy daily to restore function at or near her level of functioning prior to the recent CVA. Toña c/o multiple joint pains while in rehab and was requiring narcotics for pain relief. She also had daily headaches that were associated with photophobia, phonophobia and nausea. She was always keeping the room dark. She deied any visual changes or jaw claudication. She was started on steroids for inflammatory polyarthropathy (PMR/) and suspected migraine headaches. The steroids are currently being tapered. She has not had additional migraines since being started on steroids and is requiring much less [place].....she has had several days when she did not even need the [place]. At the time of discharge she is on 4 mg BID and this will be decreased to 2 mg BID after 5 days. She will take 2 mg BID for 7 days and then 1 mg BID for 7 days and then Decadron will be discontinued. HGBA1C prior to steroids was 5.6 and she has no hx of DM. Blood sugars at discharge are elevated but, there are no BS's > 250 and we elected not to start SSI but, told her to increase her fluid intake to make up for polyuria. The blood sugars have been coming down with tapering the Decadron. While in rehab she developed another UTI and the culture showed > 100,000 colonies of E.Coli. She was placed on Cipro and unfortunately began having hallucinations which frightened her. Cipro was discontinued and she was placed on Rocephin to finish an 8 days course of antibiotics. At the time of discharge she has no fevers and no dysuria. She has been chronically incontinent of urine.....This likely contributes to recurrent UTI's, The E. Coli is sensitive to Nitrofurantoin and if she has another UTI while in assisted I would consider a 3 month course of Nitrofurantoin 50 mg daily for prophylaxis. On 05/29 Toña had a non-contrasted CT of the brain and there was no evidence of intracranial hemorrhage. she was restarted on Eliquis and is doing well with no MARINO's and no additional focal neurologic complaints. Toña initially did well with therapy and she was able to ambulate 25' on 05/22/20 with a WW. Unfortunately with the hallucinations she became anxious and had a set back.....ambulating only 10 ft on 05/25. On 05/26 she had a panic attack and this was disabling for her. After that she refused to get up to use the C and she did not want to do therapy or ambulate. Hallucinations resolved with discontinuation of Cipro. She had 3 days of Klonopin 0.5 mg TID and the anxiety improved but the fear of doing therapy persisted. We needed a Gissel lift to get her up at that point. On 05/31 while ambulating, after 2 steps her legs gave out and she folded slowly to the ground with the assistance of the PT. She c/o hip pain later that day and an XRAY was obtained that showed no fracture or dislocation. Fear increased significantly after that and she afraid to try and stand. She states she is too weak however, she has 5/5 strength in both UE's and she can lift both legs off the bed against gravity.....she has a mild drift with the Left leg but, it did not touch the bed, I thought the weakness was related to fear and increased depression over not being able to walk. I contacted Vi Amin who is her nurse geothermal production manager at the counselling center and she suggested increasing the Lamictal dose or adding Abilify 2 mg at HS. I elected to increase the Lamictal to 225 mg BID rather than add another drug. She wants to walk and get home but, she is very afraid of standing. She is now deconditioned because she has not really ambulated or stood at the parallel bars. On 06/02 she showed little assistance with BL UE's and LE's to go from supine to sitting and It took a staff of 3 to attempt standing and even with an assist of 3 she was unable to clear her bottom. She needed much encouragement to even participate with therapy. On 06/05 she participated with E-stim to the quads and seated exercise with minimal cuing. She propelled the WC 100' using BL UE's and LE's. She needed frequent rest breaks due to fatigue. Due to her failure to progress in therapy and, in fact she regressed while in rehab she is being transferred to [facility] where she will be required to do less than 3 hours of therapy daily. She has an upcoming appt with [facility] to address anxiety about standing and walking and possible PTSD associated with this. I do not think that she has steroid myopathy.......she was only started on steroids on 05/19/20 and they have been tapered. I think the problem is fear of standing and lack of motivation to participate due to anxiety. She was also falling a lot at home prior to the stroke was already deconditioned. If however she does not progress in skilled therapy and her strength doing seated exercises decreases I would consider a muscle biopsy of the quadriceps muscle. Pat will need to follow up with a neurologist going forward and also with Dr. SERRANO at [facility]. MM are dry and she was instructed to increase fluid intake. 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 Legs supine - lifts both legs off the bed and can hold against gravity for a count of 5 with minimal drift. No ataxia and no neglect. This note was generated with [employer] software. It may contain incorrect words, spelling, and punctuation that were not noted in checking the note before signing. [] Patient Problems: Active and Suspected Problems (Last Reviewed 05/09/20 @ 14:[address] 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 Serrano Hemorrhagic cerebrovascular accident (CVA) (Acute) due to ruptured aneursym Lt PICA on 04/26/20 Status post coil embolization of cerebral aneurysm (Acute) on 04/25/[address] Serrano at [facility] Diplopia (Acute) Subarachnoid hemorrhage due to ruptured aneurysm (Acute) acute -associated with interventricular hemorrage on 04/26/20 1 day after coiling of the L PICA (04/25/20) Generalized anxiety disorder with panic attacks (Acute) Drug-induced hyperglycemia (Acute) Adverse drug reaction (Acute) due to Cipro - hallucinations - Physical Exam Vitals/I&O's: Vital Signs Temp Pulse Resp BP Pulse Ox 98.5 F 104 H 16 122/66 H 92 06/06/20 07:30 06/06/20 08:10 06/06/20 07:30 06/06/20 07:30 06/06/20 07:30 Oxygen Flow Rate (L/min) 2 Oxygen Delivery Method Room Air Weight: 284 lb 8 oz Body Mass Index (BMI) 43.6 Intake and Output for Last 24 Hours 06/04/20 06/05/20 06/06/20 23:59 23:59 23:59 Intake Total 1820 / 1820 240 / 240 200 / 200 Output Total 150 / 150 300 / 300 Balance 1670 / 1670 -60 / -60 200 / 200 Laboratory Results 06/05/20 22:05: POC Glucose 238 H 06/06/20 06:10: POC Glucose 206 H 06/06/20 07:18: COVID-19 (SHILPI) Negative 06/06/20 12:11: POC Glucose 167 H Current Medications Acetaminophen (Tylenol) 650 mg PO Q4H PRN PRN PRN Reason: Pain Score 1-10/10 Last Admin: 05/28/20 11:36 Dose: 650 mg Documented by: Hydrocodone Bitart/Acetaminophen ([place] 5mg-325mg) 1 tablet PO Q6H PRN PRN PRN Reason: migraine cephalgia Last Admin: 06/06/20 08:07 Dose: 1 tablet Documented by: Albuterol Sulfate (Ventolin Aerosols) 2.5 mg INHALATION Q4H PRN PRN Reason: SOB/WHEEZING Apixaban (Eliquis) 5 mg PO BID [facility] Last Admin: 06/06/20 08:07 Dose: 5 mg Documented by: Aspirin (Aspirin, Baby) 81 mg PO DAILYCM [facility] Last Admin: 06/06/20 08:06 Dose: 81 mg Documented by: Atorvastatin Calcium (Lipitor) 20 mg PO QHS [facility] Last Admin: 06/05/20 21:48 Dose: 20 mg Documented by: Bisacodyl (Dulcolax) 10 mg RECTAL .PRN X 1 PRN PRN Reason: Constipation Last Admin: 06/04/20 10:33 Dose: 10 mg Documented by: Calamine/Phenol (Calmoseptine Ointment) 1 applic TOPICAL BID [facility]; Protocol Last Admin: 06/06/20 08:14 Dose: 1 applicatio Documented by: Capsaicin (Zostrix) 1 applic TOPICAL 0600,2200 [facility]; Protocol Last Admin: 06/06/20 06:00 Dose: 1 applicatio Documented by: [facility]; Taper Stop: 06/13/20 16:59 Last Admin: 06/06/20 08:06 Dose: 4 mg Documented by: Diltiazem HCl (Cardizem Cd) 240 mg PO BID [facility] Last Admin: 06/06/20 08:07 Dose: 240 mg Documented by: Ergocalciferol (Vitamin D) 50,000 unit PO [facility] Last Admin: 06/03/20 08:33 Dose: 50,000 unit Documented by: Fluoxetine HCl (Prozac) 40 mg PO DAILY [facility] Last Admin: 06/06/20 08:09 Dose: 40 mg Documented by: Gabapentin (Neurontin) 400 mg PO BID [facility] Last Admin: 06/06/20 08:10 Dose: 400 mg Documented by: Sodium Chloride () 250 mls @ 15 mls/hr IV .[id number] PRN PRN Reason: Saline Flush Last Infusion: 05/31/20 18:09 Dose: Infused Documented by: Sodium Chloride () 250 mls @ 15 mls/hr IV .[id number] PRN PRN Reason: Additional IVPB Infusion Insulin Human Lispro (Humalog Kwikpen (Bkc)) 0 unit SC ACHS [facility]; Protocol Last Admin: 06/06/20 12:20 Dose: 1 units Documented by: Lamotrigine (Lamictal) 225 mg PO BID [facility] Last Admin: 06/06/20 08:08 Dose: 225 mg Documented by: Magnesium Hydroxide (Milk Of Magnesia) 30 ml PO .PRN X 1 PRN PRN Reason: Constipation Last Admin: 06/03/20 15:48 Dose: 30 ml Documented by: Multivitamins/Minerals (Multivitamin With Minerals (Bkc)) 1 tablet PO DAILY@ 0800 [facility] Last Admin: 06/06/20 08:06 Dose: 1 tablet Documented by: Nystatin (Mycostatin Powder) 1 applic TOPICAL BID@0600,2200 [facility]; Protocol Last Admin: 06/06/20 06:01 Dose: 1 applicatio Documented by: Pantoprazole Sodium (Protonix) 40 mg PO DAILY [facility] Last Admin: 06/06/20 08:09 Dose: 40 mg Documented by: Pharmacy Profile Note () 1 each NOTE X1 PRN PRN Reason: NOT SPECIFIED Potassium Phos/Sodium Phos (Neutra-Phos Packet) 1 packet PO TID [facility] Stop: 06/08/20 06:01 Last Admin: 06/06/20 13:26 Dose: 1 packet Documented by: Senna/Docusate Sodium (Senokot-S, Sena-Colace) 2 tablet PO BID [facility] Last Admin: 06/06/20 08:10 Dose: Not Given Documented by: Sodium Chloride () 10 - 40 ml IV UD PRN PRN Reason: SALINE FLUSH Last Admin: 05/31/20 20:33 Dose: 10 ml Documented by: Tizanidine HCl (Zanaflex) 4 mg PO DAILY@2100 [facility] Last Admin: 06/05/20 21:48 Dose: 4 mg Documented by: Tolterodine Tartrate (Detrol La) 2 mg PO DAILY [facility] Last Admin: 06/06/20 08:07 Dose: 2 mg Documented by: Trazodone HCl (Desyrel) 100 mg PO QHS [facility] Last Admin: 06/05/20 21:49 Dose: 100 mg Documented by: Vitamin E (Vitamin E) 400 units PO DAILYCM [facility] Last Admin: 06/06/20 08:07 Dose: 400 units Documented by: Home Medications: Medications to take at Discharge fluoxetine 40 mg capsule 40 mg PO DAILY 12/29/17 albuterol sulfate 90 mcg/actuation aerosol inhaler 2 puff INHALATION Q4H PRN 30 Days #36 g 04/13/19 Pantoprazole Sodium [Protonix] 40 mg PO DAILY 08/08/19 Aspirin [Aspirin, Baby] 81 mg PO DAILY 11/29/19 apixaban 5 mg tablet 5 mg PO BID #180 tab 11/29/19 Acetaminophen 650 mg PO Q4H PRN PRN 05/08/20 Atorvastatin Calcium [Lipitor] 20 mg PO QHS 05/08/20 Cholecalciferol (VIT D3) 50,000 units PO QWEEK 05/08/20 Gabapentin [Neurontin] 400 mg PO BID 05/08/20 Multivit with Iron,Minerals 1 tab PO DAILY 05/08/20 Vitamin E 400 units PO DAILY 05/08/20 traZODone [Desyrel] 100 mg PO QHS 05/08/20 Apixaban [Eliquis] 5 mg PO BID tab 06/06/20 Bisacodyl [Dulcolax] 10 mg RECTAL .PRN X 1 PRN suppos. 06/06/20 Capsaicin 42.5 gm TP BID #1 cream..g. 06/06/20 Dexamethasone [Decadron] 4 mg PO BIDCM #10 tab 06/06/20 Diltiazem CD [Cardizem CD] 240 mg PO BID cap 06/06/20 Hydrocodone Bitart/Apap 5-325 [[place] 5/325] 1 tab PO Q6H PRN PRN 7 Days #10 tab 06/06/20 Lamotrigine [Lamictal] 225 mg PO BID tab 06/06/20 Magnesium Hydroxide [Milk Of Magnesia] 30 ml PO .PRN X 1 PRN udc 06/06/20 Menthol/Lanolin/Calamine/Znox [Calmoseptine Ointment] 1 applic TOPICAL BID tube 06/06/20 Na Biphos/Potassium Phosphate [Neutra-Phos Packet] 1 packet PO TID #6 packet 06/06/20 Nystatin Powder [Mycostatin Powder] 1 applic TOPICAL BID@0600,2200 bottle 06/06/20 Senna/Docusate Sodium [Senokot-S] 2 tab PO BID tab 06/06/20 Tizanidine HCl [Zanaflex] 4 mg PO DAILY@2100 tab 06/06/20 Tolterodine Tartrate [Detrol LA] 2 mg PO DAILY cap.sa 06/06/20 Following Prescrptions Were Given to Patient: Capsaicin 42.5 gm TP BID #1 cream..g. Hydrocodone Bitart/Apap 5-325 [[place] 5/325] 1 tab PO Q6H PRN PRN 7 Days #10 tab PRN Reason: pain >4 Prescription Printed Primary Care Physician: Osiel Grimaldo Chi, MD [Primary Care Provider] - Please follow up with your Primary Care Physician in: 7-10 days Please Follow Up With: counselling center When: has appt for June Please Follow Up With: neurology Disposition: [facility] Minutes spent on discharge:: 45 Patient Condition:: Stable Medical Necessity - Tobacco Use Smoking Status: Former smoker Tobacco Use: Cigarettes Meaningful Use Info Meaningful Use Diagnoses (Choose all that apply): Hemorrhagic CVA - CVA Therapy Assessed for PT,OT and/or ST?: Yes - Ischemic Stroke Antithrombotic order at d/c?: Yes Dx of Atrial fib/flutter?: Yes Anticoagulant at discharge?: Yes Statins at discharge?: Yes Primary Dx Acute Ischemic CVA?: No IV tPA ordered during stay?: No Reason IV t-PA not ordered: Treatment not Indicated - we are a rehab unit and she was treated at [facility] acutely. the stroke was hemorrhagic due to PICA aneurysm Inpatient E&M: [id number] Disch Hosp
--- NOTE | 2020-06-06 14:49 | CASEMGMT ---
Social Work [facility] received precert from [facility] for optical glass inspector services. Scheduled cot transport for 12 pm. Pt and IDT aware. Vi Faulkner, LOCAL ANNOUNCER EMPLOYMENT SPECIALIST/PROGRAM MANAGER
[2020-06-06 16:46] LABS: Bedside Glucose 173 mg/dL (70-110)
[2020-06-06 17:00] VITALS: BMI 43.6
[2020-06-06 22:30] VITALS: BP 146/89; PULSE 106; RESP 18; TEMP 36.3; O2SAT 95; BMI 43.6
[2020-06-06] MEDS: tiZANidine HCl 2 MG Tablet 4 MG PO (22:32)
[2020-06-06] MEDS: Atorvastatin Calcium 20 MG Tablet PO (22:33)
[2020-06-06] MEDS: traZODone 100 MG Tablet PO (22:33)
[2020-06-06 23:10] LABS: Bedside Glucose 249 mg/dL (70-110)
--- NOTE | 2020-06-07 03:37 | NURSING ---
REVIEWED AND AGREE WITH ROLLING DOWN MACHINE OPERATOR'S FUNCTIONAL ASSESSMENT AND HANDOFF CHARTING.
[2020-06-07] MEDS: Na Biphos/Potassium Phosphate PACKET 1 PACKET PO (05:22)
[2020-06-07] MEDS: Nystatin Powder 15gm Bottle 1 APPLIC TOPICAL (05:25)
[2020-06-07 07:25] LABS: Bedside Glucose 232 mg/dL (70-110)
[2020-06-07] MEDS: FLUoxetine 20 MG Capsule 40 MG PO (07:27)
[2020-06-07] MEDS: Aspirin 81 MG TAB.CHEW PO (07:27)
[2020-06-07] MEDS: Gabapentin 400 MG Capsule PO (07:27)
[2020-06-07] MEDS: dexAMETHasone 4 MG Tablet PO (07:27)
[2020-06-07] MEDS: Pantoprazole Sodium 40 MG Tablet PO (07:27)
[2020-06-07] MEDS: Multivitamins,Ther W-Minerals Tablet 1 TABLET PO (07:27)
[2020-06-07] MEDS: lamoTRIgine 150 MG Tablet 225 MG PO (07:28)
[2020-06-07] MEDS: APIXABAN 5 MG TABLET PO (07:28)
[2020-06-07] MEDS: dilTIAZem CD 240 MG Capsule PO (07:28)
[2020-06-07] MEDS: Vitamin E 400 UNITS Capsule PO (07:28)
[2020-06-07] MEDS: Insulin Lispro 100 UNIT/ML INSULN.PEN SC ×2 (07:28→11:08)
[2020-06-07] MEDS: Tolterodine Tartrate 2 MG CAP.SA PO (07:28)
[2020-06-07] MEDS: Menthol/Lanolin/Calamine/Znox 113 GM Tube 1 APPLIC TOPICAL (07:29)
[2020-06-07 08:44] VITALS: BP 129/89; PULSE 104; RESP 16; TEMP 36.5; O2SAT 93
[2020-06-07 09:23] VITALS: BMI 43.6
[2020-06-07 09:28] VITALS: PULSE 104
[2020-06-07 11:26] LABS: Bedside Glucose 165 mg/dL (70-110)
[2020-06-07 11:55] VITALS: BMI 43.6
[2020-06-07 12:10] VITALS: BP 129/99; PULSE 104; RESP 16; TEMP 36.5; O2SAT 93
--- NOTE | 2020-06-07 12:13 | NURSING ---
pt transported [facility] via ambulance and stretcher. report called at 1125. discharge packet sent with squad drivers.
== END 2020-06-07 12:10 | disposition skilled nursing facility (03) | DRG 65 ==
PROVIDERS: Admitting Provider Internal Medicine; PCP Family Medicine Geriatric Medicine; Visit Provider Internal Medicine
DX: I60.9 Nontraumatic subarachnoid hemorrhage, unspecified (principal); I42.8 Other cardiomyopathies; Z68.41 Body mass index [BMI] 40.0-44.9, adult; I48.19 Other persistent atrial fibrillation; N39.0 Urinary tract infection, site not specified; M99.02 Segmental and somatic dysfunction of thoracic region; M99.03 Segmental and somatic dysfunction of lumbar region; M99.05 Segmental and somatic dysfunction of pelvic region; E66.01 Morbid (severe) obesity due to excess calories; E78.5 Hyperlipidemia, unspecified; I10 Essential (primary) hypertension; G25.81 Restless legs syndrome; M06.4 Inflammatory polyarthropathy; I87.2 Venous insufficiency (chronic) (peripheral); F10.21 Alcohol dependence, in remission; Z87.891 Personal history of nicotine dependence; E55.9 Vitamin D deficiency, unspecified; I27.20 Pulmonary hypertension, unspecified; K21.9 Gastro-esophageal reflux disease without esophagitis; F31.9 Bipolar disorder, unspecified; G47.33 Obstructive sleep apnea (adult) (pediatric); K74.60 Unspecified cirrhosis of liver; D64.9 Anemia, unspecified; H53.2 Diplopia; B96.20 Unspecified Escherichia coli [E. coli] as the cause of diseases classified elsewhere; R32 Unspecified urinary incontinence; I69.319 Unspecified symptoms and signs involving cognitive functions following cerebral infarction; N32.81 Overactive bladder; B35.4 Tinea corporis; T38.0X5A Adverse effect of glucocorticoids and synthetic analogues, initial encounter; R73.9 Hyperglycemia, unspecified; F06.4 Anxiety disorder due to known physiological condition
CPT/HCPCS: 36415; 70450; 72170; 80048; 80053; 80061; 81001; 82962; 83036; 83735; 84100; 85025; 85027; 87086; 87088; 87186; 87635; 92507; 92523; 92526; 92610; 94762; 94799; 96125; 97110; 97112; 97116; 97129; 97162; 97166; 97530; 97535; 97542; 97802; 99251; J7030; J7050; A4216; G0463; U0003

== ENCOUNTER 2020-06-29 10:57 | Emergency (ER) | payer MEDICARE, MEDICAID, SELFPAY ==
[2020-06-29 10:59] VITALS: BP 134/68; PULSE 98; RESP 18; TEMP 37.3; BMI 44.8
--- NOTE | 2020-06-29 11:15 | CT_ITS ---
STUDY: CT BRAIN WITHOUT CONTRAST REASON FOR EXAM: Female, 64 years old. BRAIN ANEURYSM 04/2020, MARINO X 3 DAYS, BLURRY VISION RADIATION DOSAGE (If Supplied By Facility): CTDIvol = ( 44.99 ) mGy, DLP = ( 796.11 ) mGycm TECHNIQUE: Transaxial CT imaging of the brain was performed without administration of intravenous contrast material. Individualized dose optimization techniques were used for this CT. COMPARISON: No relevant priors. FINDINGS: Normal soft tissue structures. Normal calvarium. There is mild cerebral atrophy with widening of the extra-axial spaces and ventricular dilatation. There are areas of decreased attenuation within the white matter tracts of the supratentorial brain, consistent with microvascular disease changes. Normal basal ganglia and thalami. Normal brainstem. Normal cerebellum. Metallic coils are seen within a left PICA aneurysm. There is no intracranial hemorrhage. There are no findings of an acute ischemic infarction. Normal visualized paranasal sinuses. CT/Brain/Head without Contrast IMPRESSION: Chronic involutional changes of the brain. Electronically Signed: Rayray Templeton, at 12:15 EDT Tel , Service support ,
[2020-06-29] MEDS: Ketorolac 30 MG/ML Syringe IV (11:24)
[2020-06-29] MEDS: Ondansetron 4 MG/2 ML Vial IV (11:24)
--- NOTE | 2020-06-29 11:36 | ED.DCSUM_ITS ---
History of Present Illness Chief Complaint: Headache Informant: Patient Narrative: She presents from alf with the complaint of headache. 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 She underwent coiling. She was in rehab throughout May here. Review of that documentation shows the patient was having almost daily headaches. Patient states she has appointment with a neurologist in July. Since being in a alf due to gait inability she states that her headaches have been less but she still gets them quite often. This particular headache began 3 days ago. She states that she has requested some Aleve because that is what she would take at home but nobody has given her any. She states that today nothing is different with the headache but an ambulance was called to bring her here. She denies any changes in her neurologic baseline. She notes that the headache is throbbing and generalized. She is sitting in a well lit room with her eyes open but states that she has photophobia. She notes phonophobia and some nausea. Past Medical History - Allergies and Home Meds Allergies/Adverse Reactions: Allergies morphine Allergy (Verified 02/27/20 13:25) Itching nifedipine [From Procardia] Adverse Reaction (Verified 02/27/20 13:25) Causes elevated BP Primary Care Physician: Osiel Grimaldo Chi, MD [Primary Care Provider] - Surgical History: - - T+A, Cholecystectomy, Hysterectomy, Vaginal fistula repairs, L TKR, Bunion/hammertoe RLE, Carpal tunnel BL. Coiling of L PICA on 04/25/[address] Cope at [facility] Smoking Status: Former smoker - Family History Maternal Family History: Family History (Last Reviewed 05/09/20 @ 14:[address] Taisha Mcnulty DO) Mother Breast cancer Diabetes Brother Cancer Family History: Reports: Diabetes Paternal Family History: Family History (Last Reviewed 05/09/20 @ 14:[address] Taisha Mcnulty DO) Mother Breast cancer Diabetes Brother Cancer Family History: Reports: Cancer Review of Systems General: Denies: Chills, Fever, Sweats Eyes: Denies: Visual changes - bilaterally, Diplopia ENT: Denies: Rhinorrhea, Sore throat Cardiovascular: Denies: Chest pain, Palpitations Respiratory: Denies: Dyspnea, Cough, Dyspnea on exertion Gastrointestinal: Denies: Abdominal pain, Nausea, Vomiting, Diarrhea, Melena, Hematochezia Genitourinary: Denies: Dysuria, Hematuria, Frequency Musculoskeletal: Denies: Back pain, Extremity Pain Skin: Denies: Rash, Wounds Neurological: Reports: Headache, Weakness - Chronic no change from baseline. Denies: Parasthesia, Numbness Physical Exam Vital Signs/Narrative: Vital Signs Temp Pulse Resp BP 06/29/20 10:59 99.2 F H 98 18 134/68 H Inital Vital Signs reviewed: Yes General: Well nourished, Well developed, Obese, No Acute Distress Head: Normocephalic, Atraumatic Eyes: Perrl, EOMI, - - Sitting in a well lit room with her eyes open ENT: Moist mucous membranes, No rhinorrhea Neck: Supple, Nontender Cardiovascular: Regular rate, Regular rhythm, No murmurs Respiratory: No distress, CTA bilaterally, Chest nontender Abdomen: Soft, Nontender, Nondistended, Normal bowel sounds Back: Nontender, Normal Inspection Extremities: Nontender, No edema Skin: Normal color, No rash Neurological: Alert, Oriented x3, Cranial nerves II-XII grossly intact, Normal Sensation, - - Chronic bilateral leg weakness Psychological: Normal affect, Normal Mood Diagnostic/Tx/Re-eval Clinical Impression(s) from Imaging Studies Brain CT 06/29/20 11:15 IMPRESSION: Chronic involutional changes of the brain. Electronically Signed: Rayray Templeton, at 12:15 EDT Tel , Service support , - Medical Decision Making CT the brain showed no acute findings. I talked to the patient and informed her of the CT findings and how CT in the setting of subarachnoid hemorrhage after 3 days can be negative. However the patient has almost daily headaches and she states this headache has been going on for 3 days and has been unchanged and she has no neurologic symptoms from her baseline. She received a dose of Toradol and Zofran. She also received IV fluids. She will receive a dose of Decadron and she tells me this is helped her in the past. Would recommend anti- inflammatories as needed and follow-up with neurology as scheduled. ED Disposition - Plan for ED Patient: Disposition: Home or Assisted Living Diagnosis: Cephalgia Instructions: ED Headache Unspecified Referrals: Osiel Grimaldo Chi, MD [Primary Care Provider] - Keep Melody appointment Additional Instructions: Follow-up with neurology as scheduled.
[2020-06-29] MEDS: dexAMETHasone 10 MG/ML Vial IV (13:11)
[2020-06-29 13:14] VITALS: BP 122/82; PULSE 104; RESP 18
== END 2020-06-29 13:45 | disposition home or self-care (01) ==
PROVIDERS: Emergency Provider Emergency Medicine; PCP Family Medicine Geriatric Medicine
DX: R51 Headache (principal); R11.0 Nausea; H53.149 Visual discomfort, unspecified; E66.9 Obesity, unspecified; Z87.891 Personal history of nicotine dependence
CPT/HCPCS: 70450; 96361; 96374; 96375; 99284; J7030; A4216; J2405

== ENCOUNTER 2020-07-08 13:43 | Inpatient (IN) | payer MEDICARE, MEDICAID, SELFPAY ==
[2020-07-08] VITALS (21 sets, daily range): BP systolic 79–121; BP diastolic 43–80; PULSE 73–90; RESP 14–21; TEMP 36.4–37.3; O2SAT 90–99; BMI 50.1; BMI 45.0; BMI 45.1
--- NOTE | 2020-07-08 13:56 | CT_ITS ---
STUDY: CT BRAIN WITHOUT CONTRAST REASON FOR EXAM: Female, 64 years old. Headaches and visual changes RADIATION DOSAGE (If Supplied By Facility): CTDIvol = ( 44.99 ) mGy, DLP = ( 796.11 ) mGycm TECHNIQUE: Transaxial CT imaging of the brain was performed without administration of intravenous contrast material. Individualized dose optimization techniques were used for this CT. COMPARISON: 06/29/2020 CT. FINDINGS: Normal soft tissue structures. Normal calvarium. Normal size ventricles and extra-axial spaces for the patient''s age. There is coil material in the region of the left vertebral artery seen possibly relate with prior aneurysmal coiling. Chronic small vessel disease. Intracranial vascular calcifications. There is no intracranial hemorrhage. There are no findings of an acute ischemic infarction. Normal visualized paranasal sinuses. CT/Brain/Head without Contrast IMPRESSION: No acute intracranial hemorrhage, mass effect or acute large territory infarcts. These consider MRI exam of the brain if there is clinical concern for hyperacute ischemia Electronically Signed: Anival Otero, at 14:22 EDT Tel , Service support ,
--- NOTE | 2020-07-08 13:57 | EKG12_ITS ---
Test Reason : Blood Pressure : / mmHG Vent. Rate : 077 BPM Atrial Rate : 288 BPM P-R Int : 000 ms QRS Dur : 084 ms QT Int : 434 ms P-R-T Axes : 000 -06 166 degrees QTc Int : 491 ms Atrial fibrillation Minimal voltage criteria for LVH, may be normal variant Nonspecific ST & abnormality Prolonged QT Abnormal ECG Confirmed by LUCILA FERNANDEZ, NITESH ([id number]), industrial editor JOHN PRESTON ([id number]) on 07/12/2020 11:28:16 AM Referred By: ROBI Confirmed By:NITESH GAYTAN MD
[2020-07-08 14:21] LABS: Bedside Glucose 154 mg/dL (70-110)
[2020-07-08 14:22] LABS: Absolute Lymphocyte Count 2.11 X10^3/uL (0.83-4.51); Absolute Neutrophil Count 3.5 X10^3/uL (2.0-7.7); Basophil# 0.03 X10^3/uL; Basophil% 0.5 % (0-1); Eosinophil# 0.08 X10^3/uL; Eosinophils% 1.3 % (0-5); Hematocrit 35.1 % (37-47); Hemoglobin 10.9 g/dL (12.0-15.0); Lymphocyte # 2.11 X10^3/ul (4.0); Mean Corp Hgb Conc 31.1 g/dL (32-36); Mean Corpuscular Volume 93.4 fL (81-99); Mean Platelet Vol. 9.9 fl (6.2-12.0); Monocyte# 0.49 X10^3/uL; Monocyte% 7.7 % (0-10); NRBC Flagged by Analyzer 0 % (0-5); Neutrophil # 3.46 X10^3/uL (2.7-7.7); Neutrophil % 54.1 % (47-70); POSITIVE MORPHOLOGY YES; Platelet Count 263 K/mm3 (150-450); RBC Distribution Width CV 21.6 % (11.6-14.6); RBC Distribution Width SD 72.5 fl (35.1-43.9); Red Blood Count 3.76 M/mm3 (4.2-5.4); White Blood Count 6.4 K/mm3 (4.4-11.0)
[2020-07-08 14:26] LABS: ALB/GLOB Ratio 0.8 RATIO (0.9-2.4); AST(SGOT) 43 U/L (15-37); Alanine Aminotransfer ALT/SGPT 50 U/L (13-56); Albumin, Serum 2.5 g/dL (3.2-5.0); Alkaline Phosphatase 147 U/L (45-117); Anion Gap 5 (5-15); BUN 11 mg/dL (7-18); BUN/Creat Ratio 21.9 RATIO (10-20); Calcium,Total 8.1 mg/dL (8.5-10.1); Chloride 102 mmol/L (98-107); EST Glomerular Filtration Rate 131 mL/min (>60); Est Glom Filt Rate - Afr Amer 158 mL/min (>60); Estimated Creatinine Clearance 100.94 ml/min; Globulin 3.1 g/dL (2.2-4.2); Glucose 145 mg/dL (74-106); Potassium 2.9 mmol/L (3.5-5.1); Protein, Total 5.6 g/dL (6.4-8.2); Sodium Level 140 mmol/L (136-145)
[2020-07-08 14:28] LABS: Differential Indicated SCAN CRITERIA MET
--- NOTE | 2020-07-08 14:38 | CT_ITS ---
STUDY: CTA HEAD AND NECK WITH CONTRAST REASON FOR EXAM: Female, 64 years old. MARINO, DBL VISION, HX-ANEURYSM COILING RADIATION DOSAGE (If Supplied By Facility): CTDIvol = ( 22.48 ) mGy, DLP = ( 661.41 ) mGycm TECHNIQUE: CT angiography was performed with a multi-detector CT scanner. Data acquisition was obtained from the skull base through the vertex following intravenous administration of IV 100mL Isovue-[id number]. MIP images were reconstructed from the axial data set. Post-processing of the angiographic images was performed, with multiplanar reformation and 3D reconstruction. Individualized dose optimization techniques were used for this CT. COMPARISON: 12/17/2018 FINDINGS: The origin of the great vessels are patent. A few prominent caliber mediastinal lymph nodes seen. Heterogeneous enlarged appearance of the thyroid gland with a nodule in the left thyroid lobe which can be assessed with sonography. Retropharyngeal course of the carotid arteries. Carotid bifurcations are patent without significant stenosis. Tortuosity of the left extracranial internal carotid artery seen. Intracranial segments of the internal carotid arteries are patent with calcifications. Supraclinoid segments of the internal carotid arteries are patent with calcifications. Patent anterior communicating artery. The anterior cerebral artery is patent. Left middle cerebral arteries patent. Slightly left dominant vertebral artery. Origin of the vertebral arteries are patent. Mild atherosclerotic disease of the right vertebral artery seen along the foraminal segments. Calcifications of the intradural segment of the left vertebral artery. No definite aneurysm seen however coiled material limits assessment due to streak artifact. The basilar artery is patent. The posterior cerebral arteries appear patent proximally. The dural venous sinuses are patent. Degenerative changes of the thoracic and lumbar spine IMPRESSION: No definite evidence for intracranial aneurysm seen. Coiled material in the region of the left vertebral artery limits assessment Heterogeneous enlarged left thyroid lobe. Sonographic assessment is advised on a nonemergent basis. Asymmetric low-attenuation in the right occipital lobe noted subtle early acute infarct in the right occipital lobe is not excluded. Patient may benefit from MRI examination. Electronically Signed: Anival Otero, at 15:48 EDT Tel , Service support , CT/CTA Head AND Neck W/ Contrast
[2020-07-08 14:57] LABS: Anisocytosis 2+; Differential Comment SCANNED; Macrocytosis 1+; Microcytosis 1+
[2020-07-08] MEDS: 0.9% Normal Saline 1,000 ML 999 ML IV ×3 (16:04→18:32)
--- NOTE | 2020-07-08 16:07 | ED.VIS.GEN ---
History of Present Illness Chief Complaint: Vision Prob Informant: Patient Narrative: 64-year-old female with past medical history of hypertension, morbid obesity, intracranial hemorrhage presents with concern for headache and vision change. States that she developed a headache approximately 3 days ago. States her vision change began early yesterday morning over 24 hours ago. States it is bilateral blurry vision. Denies any nausea, vomiting, chest pain, shortness of breath, fever, chills, neck pain. Denies any trauma. Patient is on Eliquis. She is status postvertebral artery coil. Past Medical History - Allergies and Home Meds Allergies/Adverse Reactions: Allergies morphine Allergy (Verified 07/08/20 13:52) Itching nifedipine [From Procardia] Adverse Reaction (Verified 07/08/20 13:52) Causes elevated BP Primary Care Physician: Osiel Grimaldo Chi, MD [Primary Care Provider] - Prior records reviewed: Yes Past Medical History: - - Hypertension, intracranial hemorrhage, atrial fibrillation Surgical History: - - T+A, Cholecystectomy, Hysterectomy, Vaginal fistula repairs, L TKR, Bunion/hammertoe RLE, Carpal tunnel BL. Coiling of L PICA on 04/25/[address] Cope at [facility] Lives: Spouse/ Significant Other Smoking Status: Former smoker Alcohol: None Drugs: None - Family History Maternal Family History: Family History (Last Reviewed 05/09/20 @ 14:[address] Taisha Mcnulty DO) Mother Breast cancer Diabetes Brother Cancer Family History: Reports: Diabetes Paternal Family History: Family History (Last Reviewed 05/09/20 @ 14:[address] Taisha Mcnulty DO) Mother Breast cancer Diabetes Brother Cancer Family History: Reports: Cancer Review of Systems General: Denies: Chills, Fever, Sweats Eyes: Reports: Visual changes - bilaterally. Denies: Diplopia ENT: Denies: Rhinorrhea, Sore throat Cardiovascular: Denies: Chest pain, Palpitations Respiratory: Denies: Dyspnea, Cough, Dyspnea on exertion Gastrointestinal: Denies: Abdominal pain, Nausea, Vomiting, Diarrhea, Melena, Hematochezia Genitourinary: Denies: Dysuria, Hematuria, Frequency Musculoskeletal: Denies: Back pain, Extremity Pain Skin: Denies: Rash, Wounds Neurological: Reports: Headache. Denies: Weakness, Numbness Physical Exam Vital Signs/Narrative: Vital Signs Temp Pulse Resp BP Pulse Ox 07/08/20 16:02 81 21 H 98/68 95 07/08/20 16:01 97.9 F 88 15 95/68 94 07/08/20 14:45 83 16 86/57 L 95 07/08/20 13:53 99.2 F H 73 20 H 83/43 L 91 07/08/20 13:46 99.2 F H 88 21 H 83/43 L 90 Inital Vital Signs reviewed: Yes General: Well nourished, Well developed, No Acute Distress Head: Normocephalic, Atraumatic Eyes: Perrl, EOMI ENT: Moist mucous membranes, No rhinorrhea Neck: Supple, Nontender Cardiovascular: Regular rate, Regular rhythm, No murmurs Respiratory: No distress, CTA bilaterally, Chest nontender Abdomen: Soft, Nontender, Nondistended, Normal bowel sounds Back: Nontender, Normal Inspection Extremities: Nontender, No edema Skin: Normal color, No rash Neurological: Alert, Oriented x3, Cranial nerves II-XII grossly intact, Normal Strength, Normal Sensation Psychological: Normal affect, Normal Mood Diagnostic/Tx/Re-eval Clinical Impression(s) from Imaging Studies Brain CT 07/08/20 13:56 IMPRESSION: No acute intracranial hemorrhage, mass effect or acute large territory infarcts. These consider MRI exam of the brain if there is clinical concern for hyperacute ischemia Electronically Signed: Anival Otero, at 14:22 EDT Tel , Service support , Head/Neck CTA 07/08/20 14:38 Laboratory Data 07/08/20 07/08/20 07/08/20 13:49 13:55 13:55 WBC 6.4 RBC 3.76 L Hgb 10.9 L Hct 35.1 L MCV 93.4 MCH 29.0 MCHC 31.1 L RDW Std Deviation 72.5 H RDW Coeff of Eric 21.6 H Plt Count 263 MPV 9.9 Immature Gran % (Auto) 3.400 H Neut % (Auto) 54.1 Lymph % (Auto) 33.0 [place] % (Auto) 7.7 Eos % (Auto) 1.3 Baso % (Auto) 0.5 Absolute Neuts (auto) 3.5 Absolute Lymphs (auto) 2.11 Nucleated RBC % 0 Differential Comment SCANNED Anisocytosis 2+ Microcytosis 1+ Macrocytosis 1+ Sodium 140 Potassium 2.9 L Chloride 102 Carbon Dioxide 33.0 H Anion Gap 5 BUN 11 Creatinine 0.50 L Estim Creat Clear Calc 100.94 Est GFR (MDRD) Af Amer 158 Est GFR (MDRD) Non-Af 131 BUN/Creatinine Ratio 21.9 H Glucose 145 H Calcium 8.1 L Total Bilirubin 0.60 AST 43 H ALT 50 Alkaline Phosphatase 147 H Troponin I < 0.015 Total Protein 5.6 L Albumin 2.5 L Globulin 3.1 Albumin/Globulin Ratio 0.8 L POC Glucose 154 H - Rhythm Strip Rhythm Strip: A-fib Rate: 77 Ectopy: None - EKG Initial EKG Interpretation: Atrial Fibrillation - Atrial fibrillation at [address] changes. QTC of 491 ms. No significant change from previous done on 11/29/2019. - Medical Decision Making Patient presents with headache and vision change. History of intracranial hemorrhage. Sent to CT emergently. CT brain without shows no acute hemorrhage. NIH of 0. Transiently hypotensive. Patient will be given 1 L of normal saline. CTA shows evidence of early right occipital lobe stroke. Patient was given aspirin. Hypokalemia found incidentally which will be replaced IV. Will be admitted to hospitalist service for further evaluation and management. Patient agreeable and admitted in stable condition. Impression: 1. Right occipital lobe CVA 2. Hypokalemia 3. Headache 4. History of vertebral artery embolization ED Disposition - Plan for ED Patient: Disposition: Acute Care Hospital [facility] Referrals: Osiel Grimaldo Chi, MD [Primary Care Provider] -
[2020-07-08] MEDS: Potassium Chloride 10mEq/100mL 10 MEQ/100 ML IV.SOLN. 100 MEQ IV BOLUS ×5 (16:19→23:50)
[2020-07-08] MEDS: Aspirin 81 MG TAB.CHEW 324 MG PO (16:20)
[2020-07-08 16:21] LABS: Bacteria 0 SEEN /hpf (None Seen); Mucous, Urine 0 SEEN /hpf (<or=2+); Red Blood Cells-Urine 0 SEEN /hpf (0-5); Squamous Epithelial Cells - UA 0 SEEN /hpf (5-10); White Blood Cells 0 SEEN /hpf (0-5)
[2020-07-08 16:22] LABS: Magnesium 1.8 mg/dL (1.6-2.6)
[2020-07-08 16:23] LABS: Color, Urine Yellow (Yellow); Glucose, Dipstick Normal (Normal); Ketone-Dipstick Negative (Negative); Leukocyte Esterase-Dipstick Negative /ul (Negative); Nitrite-Dipstick Negative (Negative); Occult Blood-Urine Negative /ul (Negative); Protein-Dipstick Negative (Negative); Urine Bilirubin Dipstick Negative (Negative); Urine Clarity Clear (Clear); Urine Urobilinogen Normal (Normal); Urine pH 6.5 (5.0 - 8.0)
--- NOTE | 2020-07-08 17:05 | HP.PCM_ITS ---
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 Cope (2) Hemorrhagic cerebrovascular accident (CVA) Status: Chronic Comment: due to ruptured aneursym Lt PICA on 04/26/20 (3) Status post coil embolization of cerebral aneurysm Status: Chronic Comment: on 04/25/[address] Cope at [facility] (4) Bipolar disorder Status: Chronic (5) Urinary incontinence Status: Chronic Comment: Chronically on Toviaz (6) Morbid obesity with BMI of 40.0-44.9, adult Status: Chronic (7) Tobacco dependence in remission Status: Chronic Comment: quit in October of 1999 (8) Alcohol dependence in remission Status: Chronic Comment: quit in 2011? (9) Venous insufficiency of both lower extremities Status: Chronic (10) Chronic anticoagulation Status: Chronic Comment: With Eliquis for atrial fibrillation. Currently being held in light of recent hemorrhagic CVA due to rupture of aneurysm PICA (11) Inflammatory polyarthropathy Status: Chronic (12) CABRERA (nonalcoholic steatohepatitis) Status: Chronic (13) Vitamin D deficiency Status: Chronic (14) Restless leg syndrome Status: Chronic (15) Left atrial enlargement Status: Chronic (16) Diplopia Status: Chronic (17) Subarachnoid hemorrhage due to ruptured aneurysm Status: Chronic Comment: acute -associated with interventricular hemorrage on 04/26/20 1 day after coiling of the L PICA (04/25/20) (18) Generalized anxiety disorder with panic attacks Status: Chronic (19) Drug-induced hyperglycemia Status: Chronic (20) Dysphagia Status: Chronic Comment: predated the stroke (21) Low HDL (under 40) Status: Chronic (22) Migraine headache without aura Status: Chronic Comment: sx consistent with Migraine and there is a FH but, she has not been seen by neurology and is not on tx for migraines. (23) Overactive bladder Status: Chronic (24) Pulmonary HTN Status: Chronic (25) Adverse drug reaction Status: Resolved Comment: due to Cipro - hallucinations (26) Persistent atrial fibrillation Status: Chronic Comment: normally on Eliquis (27) DDD (degenerative disc disease), lumbar Status: Chronic (28) Segmental and somatic dysfunction of thoracic region Status: Chronic (29) Segmental and somatic dysfunction of pelvic region Status: Chronic (30) Segmental and somatic dysfunction of lumbar region Status: Chronic (31) Nonischemic cardiomyopathy Status: Chronic Comment: Echocardiogram in June 2019 showed a 55% ejection fraction with no wall motion abnormalities. There was mild concentric left ventricular hypertrophy. The left ventricular systolic function had improved from the prior study. (32) Hyperlipidemia Status: Chronic (33) Essential (primary) hypertension Status: Chronic History of Present Illness Date of Admission: 07/08/20 Chief Complaint: Left eye vision changes, left-sided weakness. The patient is a 64 year old F who reports left eye vision changes and left- sided weakness which has been ongoing for 1 week. Patient has an extensive medical history and was recently discharged from rehab unit 06/07/2020 following coiling of a PICA aneurysm by Dr. Luis at [facility] 04/25/2020. This was complicated by subarachnoid hemorrhage and intraventricular hemorrhage. Patient states her left-sided weakness is fairly subtle however left vision seems to be getting worse. She denies other neurologic symptoms. Patient currently resides at [facility] following prior stroke and states she has been nonambulatory since her recent CVA. She has a past medical history of hypertension, hyperlipidemia, morbid obesity, overactive bladder/chronic urinary incontinence, bipolar disorder/anxiety/depression, alcohol dependence in remission, tobacco dependence in remission, inflammatory polyarthropathy, persistent atrial fibrillation on chronic anticoagulation with Eliquis, history of nonischemic cardiomyopathy, CABRERA, restless leg syndrome, chronic COPD. Past Medical History Past Medical History (Chronic Problems): Chronic Problems (Last Reviewed 05/09/20 @ 14:[address] 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 Cope at [facility] Bipolar disorder (Chronic) Urinary incontinence (Chronic) Chronically on Toviaz Morbid obesity with BMI of 40.0-44.9, adult (Chronic) Tobacco dependence in remission (Chronic) quit in October of 1999 Alcohol dependence in remission (Chronic) quit in 2011? Venous insufficiency of both lower extremities (Chronic) Chronic anticoagulation (Chronic) With Eliquis for atrial fibrillation. Currently being held in light of recent hemorrhagic CVA due to rupture of aneurysm PICA Inflammatory polyarthropathy (Chronic) CABRERA (nonalcoholic steatohepatitis) (Chronic) Vitamin D deficiency (Chronic) Restless leg syndrome (Chronic) Left atrial enlargement (Chronic) Diplopia (Chronic) Subarachnoid hemorrhage due to ruptured aneurysm (Chronic) acute -associated with interventricular hemorrage on 04/26/20 1 day after coiling of the L PICA (04/25/20) Generalized anxiety disorder with panic attacks (Chronic) Drug-induced hyperglycemia (Chronic) Dysphagia (Chronic) predated the stroke Low HDL (under 40) (Chronic) Migraine headache without aura (Chronic) sx consistent with Migraine and there is a FH but, she has not been seen by neurology and is not on tx for migraines. Overactive bladder (Chronic) Pulmonary HTN (Chronic) Persistent atrial fibrillation (Chronic) normally on Eliquis DDD (degenerative disc disease), lumbar (Chronic) Segmental and somatic dysfunction of thoracic region (Chronic) Segmental and somatic dysfunction of pelvic region (Chronic) Segmental and somatic dysfunction of lumbar region (Chronic) Nonischemic cardiomyopathy (Chronic) Echocardiogram in June 2019 showed a 55% ejection fraction with no wall motion abnormalities. There was mild concentric left ventricular hypertrophy. The left ventricular systolic function had improved from the prior study. Hyperlipidemia (Chronic) Essential (primary) hypertension (Chronic) Medical History: Medical History (Last Reviewed 05/09/20 @ 14:[address] Taisha Mcnulty, DO) Persistent atrial fibrillation (Chronic) I48.1 normally on Eliquis Nonischemic cardiomyopathy (Chronic) I42.8 Echocardiogram in June 2019 showed a 55% ejection fraction with no wall motion abnormalities. There was mild concentric left ventricular hypertrophy. The left ventricular systolic function had improved from the prior study. Hyperlipidemia (Chronic) E78.5 Essential (primary) hypertension (Chronic) I10 Bipolar disorder F31.9 COPD (chronic obstructive pulmonary disease) J44.9 DDD (degenerative disc disease) GERD (gastroesophageal reflux disease) K21.9 Morbid obesity E66.01 Non-alcoholic cirrhosis K74.60 Obstructive sleep apnea G47.33 Scoliosis of lumbar spine M41.9 Type 2 diabetes mellitus E11.9 Cerebral aneurysm without rupture I67.1 Left PICA Coiling Allergies morphine Allergy (Verified 07/08/20 13:52) Itching nifedipine [From Procardia] Adverse Reaction (Verified 07/08/20 13:52) Causes elevated BP Home Medications: Ambulatory Orders Medication Instructions Recorded albuterol sulfate 90 mcg/actuation 2 puff INHALATION Q4H PRN 30 Days 04/13/19 aerosol inhaler #36 g Aspirin [Aspirin, Baby] 81 mg PO DAILY 11/29/19 Acetaminophen 650 mg PO Q4H PRN PRN 05/08/20 Gabapentin [Neurontin] 400 mg PO BID 05/08/20 Multivit with Iron,Minerals 1 tab PO DAILY 05/08/20 Vitamin E 400 units PO DAILY 05/08/20 traZODone [Desyrel] 100 mg PO QHS 05/08/20 Apixaban [Eliquis] 5 mg PO BID tab 06/06/20 Lamotrigine [Lamictal] 225 mg PO BID tab 06/06/20 Magnesium Hydroxide [Milk Of 30 ml PO .PRN X 1 PRN udc 06/06/20 Magnesia] Senna/Docusate Sodium [Senokot-S] 2 tab PO BID tab 06/06/20 Tizanidine HCl [Zanaflex] 4 mg PO DAILY@2100 tab 06/06/20 Tolterodine Tartrate [Detrol LA] 2 mg PO DAILY cap.sa 06/06/20 Fluoxetine HCl 60 mg PO DAILY 06/29/20 Hydrocodone Bitart/Apap 5-325 1 tab PO Q6H PRN PRN 06/29/20 [Fonda 5MG-325MG] Omeprazole 20 mg PO DAILY 06/29/20 Atorvastatin Calcium [Lipitor] 20 mg PO QHS 07/08/20 Bisacodyl 10 mg MA DAILY PRN PRN 07/08/20 Buspirone HCl 5 mg PO TID 07/08/20 Capsaicin 1 applic TP TID 07/08/20 Cholecalciferol (Vitamin D3) 50,000 unit PO QMONTH 07/08/20 [D3-50] Diltiazem CD [Cardizem CD] 240 mg PO BID 07/08/20 Furosemide [Lasix] 20 mg PO DAILY 07/08/20 Lactobacillus Rhamnosus GG 1 ea PO DAILY 07/08/20 [Culturelle] Smz/Tmp Ds [Bactrim Ds] 1 tab PO BID 07/08/20 Sodium Phosphate,[place]-Dibasic 1 bottle MA PRN PRN 07/08/20 [Enema Ready To Use] Surgical History: Surgical History (Last Reviewed 05/09/20 @ 14:[address] Taisha Mcnulty DO) History of hysterectomy Z90.710 vaginal fistula repair History of carpal tunnel release Z98.890 History of tonsillectomy and adenoidectomy Z98.890 History of total left knee replacement (TKR) Z96.652 History of total right knee replacement (TKR) Z96.651 Hx of cholecystectomy Z90.49 Surgical History: - - T+A, Cholecystectomy, Hysterectomy, Vaginal fistula repairs, L TKR, Bunion/hammertoe RLE, Carpal tunnel BL. Coiling of L PICA on 04/25/[address] 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 Denies: Chills, Fever, Weight Change HEENT: Denies: Head Aches, Sinus Congestion, Sinus Drainage Cardiovascular: Reports: Edema - Bilateral lower extremities. Denies: Chest Pain, Palpitations Respiratory: Denies: Cough, Shortness of breath at rest, Sputum production Gastrointestinal: Denies: Abdominal Pain, Nausea, Vomiting Genitourinary: Denies: Dysuria Musculoskeletal: Denies: Joint Pain, Joint Tenderness Skin: Reports: - - Right posterior calf wound from prior injury with history of MRSA status post I&D. Mostly healed. Neurological: Reports: - - Left eye vision changes and left-sided weakness Psychiatric: Reports: Depression, - - Bipolar. Denies: Homicidal Ideations, Suicidal Ideations Hematologic/ Lymphatic: Denies: Easy Bruising, Easy Bleeding VTE Information - Inpt Only VTE Present on Admission: No VTE Mechan Device Prophylaxis: None VTE Pharm Prophylaxis ordered?: No Reason prophylaxis not ordered:: Treatment Not Indicated - Already on anticoagulation with Eliquis - Physical Exam Vitals/I&O's: Vital Signs Temp Pulse Resp BP Pulse Ox 98.4 F 84 16 79/47 L 97 07/08/20 16:57 07/08/20 16:57 07/08/20 16:57 07/08/20 16:57 07/08/20 16:57 Oxygen Flow Rate (L/min) 2 Oxygen Delivery Method Nasal Cannula Weight: 301 lb 2.423 oz Body Mass Index (BMI) 50.1 Finger Stick Blood Glucose 154 General: Alert, Oriented x3, Cooperative HEENT: Atraumatic, PERRLA, EOMI, Normocephalic Oral: Dry Mucosa Neck: Supple, No JVD, Negative Carotid Bruits Lungs: Clear to auscultation, Diminished Cardiovascular: - - A. fib, rate controlled Abdomen: Bowel Sounds Present, Soft, Non Tender, Non-Distended, Obese Extremities: No clubbing, No cyanosis, Edema - Bilateral lower extremities Skin: - - Right posterior calf healing wound. Dressing intact. Left lower extremity with chronic skin changes and mild erythema. Musculoskeletal: No Tenderness to Palpation of Joints or Extremities Neurological: Cranial nerves II-XII grossly intact, - - Subjective left peripheral vision deficit. Mild left-sided weakness, no drift. Psych/Mental Status: Normal Affect, Appropriate Laboratory Results 07/08/20 13:49: POC Glucose 154 H 07/08/20 13:55: WBC 6.4, RBC 3.76 L, Hgb 10.9 L, Hct 35.1 L, MCV 93.4, MCH 29.0, MCHC 31.1 L, RDW Std Deviation 72.5 H, RDW Coeff of Eric 21.6 H, Plt Count 263, MPV 9.9, Immature Gran % (Auto) 3.400 H, Neut % (Auto) 54.1, Lymph % (Auto) 33.0, [place] % (Auto) 7.7, Eos % (Auto) 1.3, Baso % (Auto) 0.5, Absolute Neuts (auto) 3.5, Absolute Lymphs (auto) 2.11, Nucleated RBC % 0, Differential Comment SCANNED, Anisocytosis 2+, Microcytosis 1+, Macrocytosis 1+ 07/08/20 13:55: Sodium 140, Potassium 2.9 L, Chloride 102, Carbon Dioxide 33.0 H , Anion Gap 5, BUN 11, Creatinine 0.50 L, Estim Creat Clear Calc 100.94, Est GFR (MDRD) Af Amer 158, Est GFR (MDRD) Non-Af 131, BUN/Creatinine Ratio 21.9 H, Glucose 145 H, Calcium 8.1 L, Total Bilirubin 0.60, AST 43 H, ALT 50, Alkaline Phosphatase 147 H, Troponin I < 0.015, Total Protein 5.6 L, Albumin 2.5 L, Globulin 3.1, Albumin/Globulin Ratio 0.8 L 07/08/20 13:55: Magnesium 1.8 07/08/20 16:15: Urine Color Yellow, Urine Clarity Clear, Urine pH 6.5, Ur Specific [place] 1.010, Urine Protein Negative, Urine Glucose (UA) Normal, Urine Ketones Negative, Urine Occult Blood Negative, Urine Nitrite Negative, Urine Bilirubin Negative, Urine Urobilinogen Normal, Ur Leukocyte Esterase Negative, Urine RBC 0 SEEN, Urine WBC 0 SEEN, Ur Squamous Epith Cells 0 SEEN, Urine Bacteria 0 SEEN, Urine Mucus 0 SEEN Current Medications Potassium Chloride () 10 meq in 100 mls @ 100 mls/hr IV BOLUS Q1H SUZANNE Stop: 07/08/20 20:29 Last Admin: 07/08/20 16:19 Dose: 100 mls/hr Documented by: Sodium Chloride () 1,000 mls @ 999 mls/hr IV .Q1H1M SUZANNE Stop: 07/08/20 19:05 Iopamidol (Contrast Allergy Check) 0 ml IV X1 [facility] Assessment/Plan All Active Problems (Last Reviewed 05/09/20 @ 14:[address] Taisha Jack i, DO) Acute exacerbation of chronic obstructive pulmonary disease (COPD) (Resolved) Acute fall (Resolved) Adverse drug reaction (Resolved) Allergic reaction due to correct medicinal substance properly administered (Resolved) Atrial fibrillation with RVR (Resolved) CAP (community acquired pneumonia) (Resolved) Cellulitis of lower leg (Resolved) History of MRSA infection (Resolved) Hypokalemia (Resolved) Infected open wound (Resolved) Influenza B (Resolved) Laceration of head (Resolved) MRSA (methicillin resistant Staphylococcus aureus) infection (Resolved) Metabolic alkalosis (Resolved) Non-healing wound of lower extremity (Resolved) Nonhealing nonsurgical wound limited to breakdown of skin (Resolved) Parainfluenza virus bronchopneumonia (Resolved) Pneumonia (Resolved) Sinusitis (Resolved) Syncope and collapse (Resolved) 1. Acute right bicipital lobe CVA-brain CT shows no acute intracranial hemorrhage or acute large territory infarcts. Head and neck CTA demonstrates right occipital lobe early acute infarct. Continue aspirin, statin, Eliquis. Neurology consult. Plan for repeat CT in 24 hours. PT/OT/ST. 2. Hypotension-unclear etiology. Fluid bolus in ER. Hold BP regimen. 3. Hypokalemia-replace per protocol. Trend BMP. 4. Recent hemorrhagic CVA- coiling of a PICA aneurysm by Dr. Luis at [facility] 04/25/2020 complicated by subarachnoid hemorrhage and intraventricular hemo rrhage. Residing at [facility] due to debility. PT/OT. 5. Chronic right calf posterior wound-mostly healed. Previously followed with wound center. Wound is secondary to prior injury complicated by MRSA infection. Wound RN consult. 6. Hypertension-hold BP regimen given hypotension. 7. Hyperlipidemia-continue statin. 8. Morbid obesity-encouraged diet and lifestyle modifications. Nutrition consult. 9. Overactive bladder/chronic urinary incontinence-continue Detrol LA. 10. Bipolar disorder/anxiety/depression-continue home medication regimen and including buspirone, fluoxetine, Lamictal, trazodone. 11. Alcohol dependence in remission 12. Tobacco dependence in remission 13. Inflammatory polyarthropathy-PRN pain regimen. 14. Persistent atrial fibrillation on chronic anticoagulation with Eliquis- continue Cardizem. 15. History of nonischemic cardiomyopathy- resolved. Echo at [facility] April 2020 demonstrated an EF of 68%. 16. CABRERA-continue outpatient follow-up. 17. GERD-continue PPI. 18. Chronic COPD-no exacerbation. As needed albuterol aerosol. DVT prophylaxis- Eliquis CODE STATUS: Discussed in length with patient including full code, DNR CCA and DNR CC status. Patient elects to remain full code. Time spent: 18 minutes. This patient was seen by CAROLINE Mulligan under the supervision of Dr. Llanos. <Theresa Llanos - Last Filed: 07/08/20 19:28> History of Present Illness The patient is a 64 year old F [] Past Medical History Medical History: Medical History (Last Reviewed 05/09/20 @ 14:[address] Taisha Mcnulty DO) Persistent atrial fibrillation (Chronic) I48.1 normally on Eliquis Nonischemic cardiomyopathy (Chronic) I42.8 Echocardiogram in June 2019 showed a 55% ejection fraction with no wall motion abnormalities. There was mild concentric left ventricular hypertrophy. The left ventricular systolic function had improved from the prior study. Hyperlipidemia (Chronic) E78.5 Essential (primary) hypertension (Chronic) I10 Bipolar disorder F31.9 COPD (chronic obstructive pulmonary disease) J44.9 DDD (degenerative disc disease) GERD (gastroesophageal reflux disease) K21.9 Morbid obesity E66.01 Non-alcoholic cirrhosis K74.60 Obstructive sleep apnea G47.33 Scoliosis of lumbar spine M41.9 Type 2 diabetes mellitus E11.9 Cerebral aneurysm without rupture I67.1 Left PICA Coiling Allergies morphine Allergy (Verified 07/08/20 13:52) Itching nifedipine [From Procardia] Adverse Reaction (Verified 07/08/20 13:52) Causes elevated BP Surgical History: Surgical History (Last Reviewed 05/09/20 @ 14:[address] Taisha Mcnulty DO) History of hysterectomy Z90.710 vaginal fistula repair History of carpal tunnel release Z98.890 History of tonsillectomy and adenoidectomy Z98.890 History of total left knee replacement (TKR) Z96.652 History of total right knee replacement (TKR) Z96.651 Hx of cholecystectomy Z90.49 - *Family History Maternal Family History: Family History (Last Reviewed 07/08/20 @ 17:18 by CAROLINE Mulligan) Mother Breast cancer Diabetes Brother Cancer Paternal Family History: Family History (Last Reviewed 07/08/20 @ 17:18 by CAROLINE Mulligan) Mother Breast cancer Diabetes Brother Cancer - Physical Exam Vitals/I&O's: Vital Signs Temp Pulse Resp BP Pulse Ox 97.5 F L 83 14 86/61 L 94 07/08/20 18:00 07/08/20 18:30 07/08/20 18:30 07/08/20 18:30 07/08/20 18:30 Oxygen Flow Rate (L/min) 2 Oxygen Delivery Method Nasal Cannula Weight: 136.6 kg Body Mass Index (BMI) 50.1 Finger Stick Blood Glucose 154 Intake and Output for Last 24 Hours 07/06/20 07/07/20 07/08/20 23:59 23:59 23:59 Intake Total 2199 Balance 2199 Laboratory Results 07/08/20 13:49: POC Glucose 154 H 07/08/20 13:55: WBC 6.4, RBC 3.76 L, Hgb 10.9 L, Hct 35.1 L, MCV 93.4, MCH 29.0, MCHC 31.1 L, RDW Std Deviation 72.5 H, RDW Coeff of Eric 21.6 H, Plt Count 263, MPV 9.9, Immature Gran % (Auto) 3.400 H, Neut % (Auto) 54.1, Lymph % (Auto) 33.0, [place] % (Auto) 7.7, Eos % (Auto) 1.3, Baso % (Auto) 0.5, Absolute Neuts (auto) 3.5, Absolute Lymphs (auto) 2.11, Nucleated RBC % 0, Differential Comment SCANNED, Anisocytosis 2+, Microcytosis 1+, Macrocytosis 1+ 07/08/20 13:55: Sodium 140, Potassium 2.9 L, Chloride 102, Carbon Dioxide 33.0 H , Anion Gap 5, BUN 11, Creatinine 0.50 L, Estim Creat Clear Calc 100.94, Est GFR (MDRD) Af Amer 158, Est GFR (MDRD) Non-Af 131, BUN/Creatinine Ratio 21.9 H, Glucose 145 H, Calcium 8.1 L, Total Bilirubin 0.60, AST 43 H, ALT 50, Alkaline Phosphatase 147 H, Troponin I < 0.015, Total Protein 5.6 L, Albumin 2.5 L, Globu glen 3.1, Albumin/Globulin Ratio 0.8 L 07/08/20 13:55: Magnesium 1.8 07/08/20 16:15: Urine Color Yellow, Urine Clarity Clear, Urine pH 6.5, Ur Specific [place] 1.010, Urine Protein Negative, Urine Glucose (UA) Normal, Urine Ketones Negative, Urine Occult Blood Negative, Urine Nitrite Negative, Urine Bilirubin Negative, Urine Urobilinogen Normal, Ur Leukocyte Esterase Negative, Urine RBC 0 SEEN, Urine WBC 0 SEEN, Ur Squamous Epith Cells 0 SEEN, Urine Bacteria 0 SEEN, Urine Mucus 0 SEEN Current Medications Potassium Chloride () 10 meq in 100 mls @ 100 mls/hr IV BOLUS Q1H SUZANNE Stop: 07/08/20 20:29 Last Admin: 07/08/20 18:32 Dose: 100 mls/hr Documented by: Iopamidol (Contrast Allergy Check) 0 ml IV X1 SUZANNE Assessment/Plan This patient was seen in conjunction with Jolanta Swenson MARKETING AUTOMATION MANAGER. I have independently interviewed and examined the patient and reviewed pertinent historical, laboratory, and other data. Please refer to her note for patient's presentation, findings, and recommendations. 64-year-old female with multiple comorbidities including morbid obesity, recent history of CVA status post ruptured aneurysm in case of a subarachnoid hemorrhage and intraventricular hemorrhage who comes in with left eye vision changes and left-sided weakness ongoing for about 1 week. Patient was discharged recently from acute rehab on 06/07/20. Her vitals in the ED showed hypotension, systolic less than 80, persistent even after IV fluids bolus of almost 3 L. Her labs however show potassium of 2.9, magnesium 1.8 Vitals were reviewed -stable Physical Exam: Gen: Super morbid obesity, appears uncomfortable, moderately dehydrated, not pale, not jaundiced, alert oriented x3 CVS:HS I +II, regular, no murmurs RESP: Diminished at lung bases GI: BS present and normal, nontender, no palpable organs EXT:No edema ASSESSMENT: 1. Hypotension, unclear etiology likely related to dehydration/medication side effect 2. Acute Right occipital lobe CVA 3. Hypokalemia 4. Hypomagnesemia 5. Recent hemorrhagic CVA status post coiling of PICA aneurysm 6. Chronic atrial fibrillation 7. Chronic right calf posterior wound 8. Hyperlipidemia 9. Super morbid obesity 10. Overactive bladder Meds reviewed Plan: Admit to ICU, Monitor blood pressure PICC line IV pressors Continue on aspirin and Eliquis SOC consult in a.m. Replace electrolytes Recheck in a.m. Critical care consult CODE STATUS-full code, discussed in detail by nurse practitioner, confirmed with patient Inpatient E&M: 84031 Init Hosp L3 Procedures: 00799 Advncd Care Plan 30 Min
[2020-07-08 20:11] LABS: BNP,B-Type NATRIURETIC PEPTIDE 45.5 pg/mL (0-100)
[2020-07-08 20:12] LABS: Lactic Acid 1.9 mmol/L (0.4-1.9)
--- NOTE | 2020-07-08 20:14 | RAD_ITS ---
STUDY: X-RAY CHEST REASON FOR EXAM: Female, 64 years old. PICC LINE PLACEMENT, PLEASE GIVE MEASUREMENT HOW FAR IS NEEDED TO PULL THE LINE BACK TECHNIQUE: Frontal view of the chest COMPARISON: Generally 2019 FINDINGS: Left upper extremity PICC line is in place with its tip at the junction of the right atrium and inferior vena cava. Recommend withdrawal by approximately [address] the tip into the lower superior vena cava. Lungs are clear. Cardiac size is normal. There is no pulmonary edema or pleural effusions. RAD/CXR for Line Placement IMPRESSION: PICC line with tip in the lower right atrium, recommend retraction by 8 cm. Electronically Signed: Jenn Kirkpatrick, at 20:33 EDT Tel , Service support ,
--- NOTE | 2020-07-08 20:52 | RAD_ITS ---
STUDY: X-RAY CHEST REASON FOR EXAM: Female, 64 years old. PICC LINE PLACEMENT #2 AFTER BEING RETRACTED RECOMMENDED 8CM TECHNIQUE: Frontal view of the chest COMPARISON: None. FINDINGS: Left upper tendon PICC line is now located with its tip in the superior vena cava. There is left lower lobe atelectasis. Right lung is clear. Cardiac size is normal. There is no pulmonary edema, pleural effusions or pneumothorax. RAD/Chest 1 View (Portable) IMPRESSION: PICC line terminating with its tip in the SVC. Electronically Signed: Jenn Kirkpatrick, at 21:53 EDT Tel , Service support ,
--- NOTE | 2020-07-08 21:41 | RAD_ITS ---
STUDY: X-RAY CHEST REASON FOR EXAM: Female, 64 years old. PICC LINE PLACEMENT AFTER ADVANCEMENT FROM PREVIOUS IMAGE TECHNIQUE: Frontal view of the chest COMPARISON: Earlier same day FINDINGS: Left PICC line has been advanced and is now located with its tip at the junction of superior vena cava and right atrium. There is left lower lobe atelectasis and elevated left hemidiaphragm. Remainder of the findings are unremarkable. RAD/Chest 1 View (Portable) IMPRESSION: Left PICC line with tip at the junction of the right atrium and SVC. Electronically Signed: Jenn Kirkpatrick, at 22:23 EDT Tel , Service support ,
[2020-07-08] MEDS: lamoTRIgine 150 MG Tablet 225 MG PO (23:37)
[2020-07-08] MEDS: busPIRone 5 MG Tablet PO (23:37)
[2020-07-08] MEDS: Atorvastatin Calcium 40 MG Tablet PO (23:38)
[2020-07-08] MEDS: Senna/Docusate Sodium 1 Tablet PO (23:38)
--- NOTE | 2020-07-08 23:48 | NURSING ---
2230: Patient transferred into ICU 06 in stable condition. NIH completed at bedside with ED RN. Patient belongings include cell phone with red case and glasses.
[2020-07-09] VITALS (30 sets, daily range): BP systolic 95–135; BP diastolic 52–86; PULSE 79–120; RESP 11–21; TEMP 35.9–36.9; O2SAT 94–99; BMI 45.0
--- NOTE | 2020-07-09 00:50 | PCM.RX.CS ---
Consult Pharmacy has been consulted to manage selected antiobiotic: Vancomycin Type of Consult: New start Labs: Sodium 140 mmol/L (136-145) 07/08/20 13:55 Potassium 2.9 mmol/L (3.5-5.1) L 07/08/20 13:55 Chloride 102 mmol/L (98-107) 07/08/20 13:55 Carbon Dioxide 33.0 mmol/L (21.0-32.0) H 07/08/20 13:55 Anion Gap 5 (5-15) 07/08/20 13:55 BUN 11 mg/dL (7-18) 07/08/20 13:55 Creatinine 0.50 mg/dL (0.55-1.02) L 07/08/20 13:55 Est GFR (MDRD) Af Amer 158 mL/min (>60) 07/08/20 13:55 Est GFR (MDRD) Non-Af 131 mL/min (>60) 07/08/20 13:55 BUN/Creatinine Ratio 21.9 RATIO (10-20) H 07/08/20 13:55 Glucose 145 mg/dL (74-106) H 07/08/20 13:55 Goal Trough: 15-20 mcg/mL Pharmacy Plan for Drug Dosing: Pharmacy Service will continue to monitor and adjust dosing as required. Medications Vancomycin HCl 1,500 mg/ (Sodium Chloride) 530 mls @ 250 mls/hr IV Q8H SUZANNE Discontinued Medications Vancomycin HCl 2,000 mg/ (Sodium Chloride) 540 mls @ 250 mls/hr IV X1 ONE Stop: 07/08/20 23:39 Last Admin: 07/08/20 23:25 Dose: 250 mls/hr Documented by: Follow-Up Labs: Trough Vancomycin Labs to be done on [date and time ordered]: 07/09 @ 2300
[2020-07-09] MEDS: Potassium Chloride 10mEq/100mL 10 MEQ/100 ML IV.SOLN. 100 MEQ IV BOLUS (00:51)
[2020-07-09 04:43] LABS: Absolute Lymphocyte Count 1.74 X10^3/uL (0.83-4.51); Basophil# 0.04 X10^3/uL; Basophil% 0.7 % (0-1); Eosinophil# 0.05 X10^3/uL; Eosinophils% 0.9 % (0-5); Hematocrit 31.8 % (37-47); Hemoglobin 9.9 g/dL (12.0-15.0); Lymphocyte # 1.74 X10^3/ul (4.0); Lymphocyte % 32.5 % (19-41); Mean Corp Hgb Conc 31.1 g/dL (32-36); Mean Corpuscular Hgb 29.4 pg (27.0-32.0); Mean Corpuscular Volume 94.4 fL (81-99); Mean Platelet Vol. 9.4 fl (6.2-12.0); Monocyte# 0.39 X10^3/uL; Monocyte% 7.3 % (0-10); NRBC Flagged by Analyzer 0 % (0-5); Neutrophil # 2.97 X10^3/uL (2.7-7.7); Neutrophil % 55.4 % (47-70); POSITIVE MORPHOLOGY YES; Platelet Count 208 K/mm3 (150-450); RBC Distribution Width CV 22.1 % (11.6-14.6); RBC Distribution Width SD 74.3 fl (35.1-43.9); Red Blood Count 3.37 M/mm3 (4.2-5.4); White Blood Count 5.4 K/mm3 (4.4-11.0)
[2020-07-09 04:49] LABS: Differential Indicated SCAN CRITERIA MET
[2020-07-09 04:58] LABS: ALB/GLOB Ratio 0.8 RATIO (0.9-2.4); AST(SGOT) 27 U/L (15-37); Alanine Aminotransfer ALT/SGPT 40 U/L (13-56); Albumin, Serum 2.1 g/dL (3.2-5.0); Alkaline Phosphatase 112 U/L (45-117); Anion Gap 4 (5-15); BUN 8 mg/dL (7-18); BUN/Creat Ratio 24.9 RATIO (10-20); Calcium,Total 7.6 mg/dL (8.5-10.1); Chloride 109 mmol/L (98-107); Creatinine, Serum 0.32 mg/dL (0.55-1.02); EST Glomerular Filtration Rate 219 mL/min (>60); Est Glom Filt Rate - Afr Amer 265 mL/min (>60); Estimated Creatinine Clearance 176.81 ml/min; Globulin 2.7 g/dL (2.2-4.2); Glucose 97 mg/dL (74-106); Potassium 3.3 mmol/L (3.5-5.1); Protein, Total 4.8 g/dL (6.4-8.2); Sodium Level 143 mmol/L (136-145)
[2020-07-09 05:02] LABS: Differential Comment SCANNED
[2020-07-09] MEDS: busPIRone 5 MG Tablet PO ×3 (06:26→21:56)
--- NOTE | 2020-07-09 07:07 | PCM.PN.HOSP ---
Reason for Visit: Follow-up on acute right occipital CVA/hypotension Subjective: Patient was seen and examined. She remained hypotensive despite 3 L of IV fluid boluses. PICC line was inserted. Patient was started on Levophed. Levophed turned off at 2 AM on 07/09/20. No other acute events overnight. She denied any double vision or any weakness in any of her extremities. Her NIHSS score was 0. Vitals/I&O's: Vital Signs Temp Pulse Resp BP Pulse Ox 96.7 F L 88 18 105/67 97 07/09/20 04:00 07/09/20 07:00 07/09/20 07:00 07/09/20 07:00 07/09/20 07:00 Oxygen Flow Rate (L/min) 2 Oxygen Delivery Method Nasal Cannula Weight: 134 kg Body Mass Index (BMI) 45.0 Finger Stick Blood Glucose 154 Intake and Output for Last 24 Hours 07/07/20 07/08/20 07/09/20 23:59 23:59 23:59 Intake Total 3515.59 / 3520.29 811.15 / 811.15 Output Total 280 / 280 1000 / 1000 Balance 3235.59 / 3240.29 -188.85 / -188.85 General: Alert, Oriented x3, Cooperative, No apparent distress, - - Morbidly obese, on 2 L of oxygen HEENT: Atraumatic, PERRLA, EOMI, Normocephalic Oral: Moist Mucosa Neck: Supple Lungs: Clear to auscultation, Normal air movement Cardiovascular: Regular rate, Regular Rhythm, Normal S1, Normal S2, No murmurs Abdomen: Bowel Sounds Present, Soft, Non Tender, Non-Distended, No Hepato-splenomegaly Extremities: Edema - Trace bilateral edema, erythema of the right lower extremity with an area of healed blister Skin: - - see under extremities Musculoskeletal: No Tenderness to Palpation of Joints or Extremities Lymphatic: No Cervical, Supraclavicular, or Inguinal Adenopathy Neurological: Cranial nerves II-XII grossly intact, Neuro grossly intact Psych/Mental Status: Normal Affect, Appropriate Laboratory Results 07/08/20 13:49: POC Glucose 154 H 07/08/20 13:55: WBC 6.4, RBC 3.76 L, Hgb 10.9 L, Hct 35.1 L, MCV 93.4, MCH 29.0, MCHC 31.1 L, RDW Std Deviation 72.5 H, RDW Coeff of Eric 21.6 H, Plt Count 263, MPV 9.9, Immature Gran % (Auto) 3.400 H, Neut % (Auto) 54.1, Lymph % (Auto) 33.0, Armstrong % (Auto) 7.7, Eos % (Auto) 1.3, Baso % (Auto) 0.5, Absolute Neuts (auto) 3.5, Absolute Lymphs (auto) 2.11, Nucleated RBC % 0, Differential Comment SCANNED, Anisocytosis 2+, Microcytosis 1+, Macrocytosis 1+ 07/08/20 13:55: Sodium 140, Potassium 2.9 L, Chloride 102, Carbon Dioxide 33.0 H, Anion Gap 5, BUN 11, Creatinine 0.50 L, Estim Creat Clear Calc 100.94, Est GFR (MDRD) Af Amer 158, Est GFR (MDRD) Non-Af 131, BUN/Creatinine Ratio 21.9 H, Glucose 145 H, Calcium 8.1 L, Total Bilirubin 0.60, AST 43 H, ALT 50, Alkaline Phosphatase 147 H, Troponin I < 0.015, Total Protein 5.6 L, Albumin 2.5 L, Globulin 3.1, Albumin/Globulin Ratio 0.8 L 07/08/20 13:55: Magnesium 1.8 07/08/20 13:55: B-Natriuretic Peptide 45.5 07/08/20 13:55: Lactic Acid 1.9 07/08/20 16:15: Urine Color Yellow, Urine Clarity Clear, Urine pH 6.5, Ur Specific [place] 1.010, Urine Protein Negative, Urine Glucose (UA) Normal, Urine Ketones Negative, Urine Occult Blood Negative, Urine Nitrite Negative, Urine Bilirubin Negative, Urine Urobilinogen Normal, Ur Leukocyte Esterase Negative, Urine RBC 0 SEEN, Urine WBC 0 SEEN, Ur Squamous Epith Cells 0 SEEN, Urine Bacteria 0 SEEN, Urine Mucus 0 SEEN 07/09/20 04:30: WBC 5.4, RBC 3.37 L, Hgb 9.9 L, Hct 31.8 L, MCV 94.4, MCH 29.4, MCHC 31.1 L, RDW Std Deviation 74.3 H, RDW Coeff of Eric 22.1 H, Plt Count 208, MPV 9.4, Immature Gran % (Auto) 3.200 H, Neut % (Auto) 55.4, Lymph % (Auto) 32.5, Armstrong % (Auto) 7.3, Eos % (Auto) 0.9, Baso % (Auto) 0.7, Absolute Neuts (auto) 3.0, Absolute Lymphs (auto) 1.74, Nucleated RBC % 0, Differential Comment SCANNED 07/09/20 04:30: Sodium 143, Potassium 3.3 L, Chloride 109 H, Carbon Dioxide 30.0, Anion Gap 4 L, BUN 8, Creatinine 0.32 L, Estim Creat Clear Calc 176.81, Est GFR (MDRD) Af Amer 265, Est GFR (MDRD) Non-Af 219, BUN/Creatinine Ratio 24.9 H, Glucose 97, Calcium 7.6 L, Magnesium 2.0, Total Bilirubin 0.60, AST 27, ALT 40, Alkaline Phosphatase 112, Total Protein 4.8 L, Albumin 2.1 L, Globulin 2.7, Albumin/Globulin Ratio 0.8 L Current Medications Acetaminophen (Tylenol) 650 mg PO Q6H PRN PRN PRN Reason: Pain Score 1-10/Temp > 100.7 F Apixaban (Eliquis) 5 mg PO BID [facility] Aspirin (Aspirin, Baby) 81 mg PO DAILYCM [facility] Atorvastatin Calcium (Lipitor) 40 mg PO QHS [facility] Last Admin: 07/08/20 23:38 Dose: 40 mg Documented by: Buspirone HCl (Buspar) 5 mg PO TID [facility] Last Admin: 07/09/20 06:26 Dose: 5 mg Documented by: Heparin Sodium (Beef Lung) () 50 units IV UD PRN PRN Reason: PICC Line Heparin Flush Norepinephrine Bitartrate 8 mg (/ Sodium Chloride) 250 mls @ 9.375 mls/hr CONT INF .[id number] [facility]; Protocol Last Titration: 07/09/20 03:00 Dose: 0 mcg/min, 0 mls/hr Documented by: Piperacillin Sod/Tazobactam (Sod 3.375 gm/ Sodium Chloride) 50 mls @ 12.5 mls/hr IV Q8 [facility] Last Admin: 07/09/20 06:25 Dose: 12.5 mls/hr Documented by: Vancomycin IV Pharmacy to Dose (1 ea/ Sodium Chloride) 500 mls @ 250 mls/hr IV X1 PRN; Protocol PRN Reason: Rx to Dose Vancomycin HCl 1,500 mg/ (Sodium Chloride) 530 mls @ 250 mls/hr IV Q8H SUZANNE Sodium Chloride () 250 mls @ 15 mls/hr IV .[id number] PRN PRN Reason: Saline Flush Sodium Chloride () 250 mls @ 15 mls/hr IV .[id number] PRN PRN Reason: Additional IVPB Infusion Lamotrigine (Lamictal) 225 mg PO BID [facility] Last Admin: 07/08/20 23:37 Dose: 225 mg Documented by: Ondansetron HCl (Zofran) 4 mg IV Q8H PRN PRN PRN Reason: NAUSEA/VOMITING Pantoprazole Sodium (Protonix) 20 mg PO DAILY [facility] Senna/Docusate Sodium (Senokot-S, Sena-Colace) 1 tablet PO BID [facility] Last Admin: 07/08/20 23:38 Dose: 1 tablet Documented by: Sodium Chloride () 10 - 40 ml IV UD PRN PRN Reason: Open End PICC Flush Sodium Chloride (0.9% Nacl (Sterile) Posiflush) 10 - 40 ml IV UD PRN PRN Reason: Port access or dressing change Sodium Chloride () 10 - 40 ml IV UD PRN PRN Reason: SALINE FLUSH STROKE Vital Signs/Narrative: Vital Signs Temp Pulse Resp BP Pulse Ox 07/09/20 07:00 88 18 105/67 97 07/09/20 06:56 97 07/09/20 06:00 88 16 104/75 97 07/09/20 05:00 91 17 112/62 96 07/09/20 04:00 96.7 F L 93 11 L 96/57 L 97 07/09/20 03:58 88 Medical Necessity - Tobacco Use Smoking Status: Former smoker Tobacco Use: Non-smoker Assessment/Plan All Active Problems (Last Reviewed 05/09/20 @ 14:[address] Taisha Mcnulty DO) Acute exacerbation of chronic obstructive pulmonary disease (COPD) (Resolved) Acute fall (Resolved) Adverse drug reaction (Resolved) Allergic reaction due to correct medicinal substance properly administered (Resolved) Atrial fibrillation with RVR (Resolved) CAP (community acquired pneumonia) (Resolved) Cellulitis of lower leg (Resolved) History of MRSA infection (Resolved) Hypokalemia (Resolved) Infected open wound (Resolved) Influenza B (Resolved) Laceration of head (Resolved) MRSA (methicillin resistant Staphylococcus aureus) infection (Resolved) Metabolic alkalosis (Resolved) Non-healing wound of lower extremity (Resolved) Nonhealing nonsurgical wound limited to breakdown of skin (Resolved) Parainfluenza virus bronchopneumonia (Resolved) Pneumonia (Resolved) Sinusitis (Resolved) Syncope and collapse (Resolved) T 1. Hypotension, unclear etiology likely related to dehydration/medication side effect No clear source of infection, no leukocytosis Started on empiric antibiotics -vancomycin and Zosyn Was maintained on Levophed overnight; off Levophed Blood and urine cultures are pending We will discontinue IV vancomycin and keep on Zosyn for now pending culture results We will monitor blood pressures with restart of Cardizem 2. Acute Right occipital lobe CVA, seen on CTA of the head and neck, Patient is on aspirin and Eliquis; NIHSS is 0 SOC consulted, recommended MRI if neurosurgery comments?[facility] Continue to follow-up on 2D echo, lipid profile, HbA1c Will discontinue aspirin, continue on apixaban PT and OT and ST to evaluate and treat 3. Hypokalemia, potassium is 3.3 today We will replace, recheck in a.m. 4. Hypomagnesemia, resolved, magnesium is 2.0 today 5. 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 Chronic atrial fibrillation, rate controlled, continue on low-dose Cardizem and Eliquis 7. Chronic right calf posterior wound, wound is healed, mild erythema of the right lower leg We will continue to monitor 8. Hyperlipidemia, continue on statins 9. Super morbid obesity, BMI 44.9, complicates care 10. DVT prophylaxis?on Eliquis 11. Disposition: Pending PT/OT/ST evaluations Possible discharge home versus SNF Inpatient E&M: [id number] [facility] L2
--- NOTE | 2020-07-09 07:13 | TELEMED_ITS ---
[facility] Telemed has confirmed receipt of a request for visit. This document confirms receipt of the order initiating the consult. To find the results of the consultation, please view the patient's reports for the scanned Telemed Consult.
--- NOTE | 2020-07-09 07:36 | ECHOCS_ITS ---
Reason For Study: TIA/CVA Procedure This was a 2D Doppler, Color Flow transthoracic echocardiogram. Technically difficult study. Patient unable to lay on left side due to stroke symptoms. Exam performed portable in ICU/CCU. Left Ventricle Normal LV size. The estimated ejection fraction is 65 %. No regional wall motion abnormalities noted. Right Ventricle Normal RV size. Normal systolic function. Atria The left atrium is moderately enlarged. Normal right atrium. Mitral Valve Normal mitral valve. Tricuspid Valve Normal tricuspid valve. Aortic Valve The aortic valve is not well visualized. Pulmonic Valve The pulmonic valve is not well visualized. Great Vessels Normal aortic root. The pulmonary artery is normal size. Normal inferior vena cava. Pericardium/Pleural No pericardial effusion. Medication Diluted definity 2ml given slow IV push to enhance endocardial definition. Performed a rapid injection of agitated mix of 9 cc saline and 1cc air to assess for atrial septal defect. MMode/2D Measurements & Calculations LVIDd: 4.2 cm IVSd: 1.2 cm Ao root diam: 3.5 cm LVIDs: 2.7 cm LVPWd: 0.97 cm FS: 35.4 % LAV(MOD-sp4): 68.6 ml LA A4 area: 23.9 cm2 RA A4 area: 18.1 cm2 Time Measurements MV dec time: 0.20 sec Doppler Measurements & Calculations MV E max lennie: 102.5 cm/sec MV V2 max: 100.4 cm/sec MV P1/2t max lennie: 102.7 cm/sec MV max P.0 mmHg MV P1/2t: 77.4 msec MV V2 mean: 55.6 cm/sec MV dec slope: 388.5 cm/sec2 MV mean P.5 mmHg MV V2 VTI: 22.6 cm MVA(P1/2t): 2.8 cm2 Ao V2 max: 132.6 cm/sec LV V1 max: 118.2 cm/sec PA V2 max: 112.7 cm/sec Ao max P.0 mmHg LV V1 max P.6 mmHg Interpretation Summary The left atrium is moderately enlarged. Normal LV size. The estimated ejection fraction is 65 %. Contrast injection was performed. Ordering Physician: Theresa Llanos Referring Physician: Osiel Grimaldo Chi Performed By: Cruzito Temple RCS
[2020-07-09 07:58] LABS: Cholesterol 111 mg/dL (200); High Density Lipoprotein 36 mg/dL; Triglycerides 108 mg/dL; Very Low Density Lipoprotein 22 mg/dL (5-40)
[2020-07-09] MEDS: 0.9% Saline Lock 10 ML Syringe IV ×2 (08:04→11:56)
--- NOTE | 2020-07-09 08:45 | PCM.CON.CC ---
Problem List (1) Hemorrhagic cerebrovascular accident (CVA) Status: Chronic Comment: due to ruptured aneursym Lt PICA on 04/26/20 (2) Status post coil embolization of cerebral aneurysm Status: Chronic Comment: on 04/25/[address] Cope at [facility] (3) Bipolar disorder Status: Chronic (4) Urinary incontinence Status: Chronic Comment: Chronically on Toviaz (5) Morbid obesity with BMI of 40.0-44.9, adult Status: Chronic (6) Tobacco dependence in remission Status: Chronic Comment: quit in October of 1999 (7) Alcohol dependence in remission Status: Chronic Comment: quit in 2011? (8) Venous insufficiency of both lower extremities Status: Chronic (9) Inflammatory polyarthropathy Status: Chronic (10) SANCHEZ (nonalcoholic steatohepatitis) Status: Chronic (11) Vitamin D deficiency Status: Chronic (12) Restless leg syndrome Status: Chronic (13) Diplopia Status: Chronic (14) Subarachnoid hemorrhage due to ruptured aneurysm Status: Chronic Comment: acute -associated with interventricular hemorrage on 04/26/20 1 day after coiling of the L PICA (04/25/20) (15) Generalized anxiety disorder with panic attacks Status: Chronic (16) Low HDL (under 40) Status: Chronic (17) Pulmonary HTN Status: Chronic (18) Persistent atrial fibrillation Status: Chronic Comment: normally on Eliquis (19) DDD (degenerative disc disease), lumbar Status: Chronic (20) Segmental and somatic dysfunction of thoracic region Status: Chronic (21) Segmental and somatic dysfunction of pelvic region Status: Chronic (22) Segmental and somatic dysfunction of lumbar region Status: Chronic (23) Nonischemic cardiomyopathy Status: Chronic Comment: Echocardiogram in June 2019 showed a 55% ejection fraction with no wall motion abnormalities. There was mild concentric left ventricular hypertrophy. The left ventricular systolic function had improved from the prior study. (24) Hyperlipidemia Status: Chronic Qualifiers: (25) Essential (primary) hypertension Status: Chronic Reason for Consult Date of Consultation: 07/09/20 Reason for Consultation: Hypotension History of Present Illness: The patient is a 64 year old F, with past medical history listed below, who presented to [facility] on 07/08/2020 secondary to headaches and vision changes. Patient reportedly developed a headache 3 days ago and stated that her vision started to change yesterday over the past 24 hours. Patient had reported blurry vision, not double vision, but denied any nausea, vomiting, chest pain, shortness of breath, fever, chills, trauma. Patient is reportedly on Eliquis therapy following a PICA aneurysm coiling. In the ER, patient was noted to be afebrile, but hypotensive at 83/43. Patient was not tachycardic. Brain CT showed no acute infarcts. Laboratory work-up showed a relative anemia at 10.9 and hypokalemia at 2.9. Remaining work-up was relatively unremarkable. EKG did show atrial fibrillation with a QTC of 491. Patient was given normal saline and IV potassium. Blood pressure medications were held. Patient was admitted to the intensive care unit for further monitoring. Patient reportedly was on Levophed transiently while in the intensive care unit. Patient has had an NIH of 2 secondary to reported paresthesia on the left side. Patient reportedly has residual left-sided weakness secondary to her previous subarachnoid hemorrhage. Patient was denying any headache this morning. Patient has not been reporting any prodromal symptoms such as shortness of breath, fever, dysuria or frequency. Patient reportedly has a history of a cardiomyopathy, but this was resolved on an echo at [facility] in April. Patient reportedly has been at a SNF for rehab following debility associated with a hemorrhagic CVA previously. Review of systems otherwise negative from a constitutional, HEENT, respiratory, cardiovascular, GI, genitourinary, musculoskeletal, skin, neurologic, psychiatric and hematologic system unless stated above. Past Medical History Past Medical History (Chronic Problems): Chronic Problems (Last Reviewed 05/09/20 @ 14:[address] Taisha Mcnulty, ) Physical debility (Chronic) due to hemorrhagic CVA due to recurrent left PICA aneurysm with coiling done at [facility] by Dr. 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 Cope at [facility] Bipolar disorder (Chronic) Urinary incontinence (Chronic) Chronically on Toviaz Morbid obesity with BMI of 40.0-44.9, adult (Chronic) Tobacco dependence in remission (Chronic) quit in October of 1999 Alcohol dependence in remission (Chronic) quit in 2011? Venous insufficiency of both lower extremities (Chronic) Chronic anticoagulation (Chronic) With Eliquis for atrial fibrillation. Currently being held in light of recent hemorrhagic CVA due to rupture of aneurysm PICA Inflammatory polyarthropathy (Chronic) SANCHEZ (nonalcoholic steatohepatitis) (Chronic) Vitamin D deficiency (Chronic) Restless leg syndrome (Chronic) Left atrial enlargement (Chronic) Diplopia (Chronic) Subarachnoid hemorrhage due to ruptured aneurysm (Chronic) acute -associated with interventricular hemorrage on 04/26/20 1 day after coiling of the L PICA (04/25/20) Generalized anxiety disorder with panic attacks (Chronic) Drug-induced hyperglycemia (Chronic) Dysphagia (Chronic) predated the stroke Low HDL (under 40) (Chronic) Migraine headache without aura (Chronic) sx consistent with Migraine and there is a FH but, she has not been seen by neurology and is not on tx for migraines. Overactive bladder (Chronic) Pulmonary HTN (Chronic) Persistent atrial fibrillation (Chronic) normally on Eliquis DDD (degenerative disc disease), lumbar (Chronic) Segmental and somatic dysfunction of thoracic region (Chronic) Segmental and somatic dysfunction of pelvic region (Chronic) Segmental and somatic dysfunction of lumbar region (Chronic) Nonischemic cardiomyopathy (Chronic) Echocardiogram in June 2019 showed a 55% ejection fraction with no wall motion abnormalities. There was mild concentric left ventricular hypertrophy. The left ventricular systolic function had improved from the prior study. Hyperlipidemia (Chronic) Essential (primary) hypertension (Chronic) Medical History: Medical History (Last Reviewed 05/09/20 @ 14:[address] Taisha Mcnulty, ) Persistent atrial fibrillation (Chronic) I48.1 normally on Eliquis Nonischemic cardiomyopathy (Chronic) I42.8 Echocardiogram in June 2019 showed a 55% ejection fraction with no wall motion abnormalities. There was mild concentric left ventricular hypertrophy. The left ventricular systolic function had improved from the prior study. Hyperlipidemia (Chronic) E78.5 Essential (primary) hypertension (Chronic) I10 Bipolar disorder F31.9 COPD (chronic obstructive pulmonary disease) J44.9 DDD (degenerative disc disease) GERD (gastroesophageal reflux disease) K21.9 Morbid obesity E66.01 Non-alcoholic cirrhosis K74.60 Obstructive sleep apnea G47.33 Scoliosis of lumbar spine M41.9 Type 2 diabetes mellitus E11.9 Cerebral aneurysm without rupture I67.1 Left PICA Coiling Allergies morphine Allergy (Verified 07/08/20 13:52) Itching nifedipine [From Procardia] Adverse Reaction (Verified 07/08/20 13:52) Causes elevated BP Home Medications: Ambulatory Orders Medication Instructions Recorded albuterol sulfate 90 mcg/actuation 2 puff INHALATION Q4H PRN 30 Days 04/13/19 aerosol inhaler #36 g Aspirin [Aspirin, Baby] 81 mg PO DAILY 11/29/19 Acetaminophen 650 mg PO Q4H PRN PRN 05/08/20 Gabapentin [Neurontin] 400 mg PO BID 05/08/20 Multivit with Iron,Minerals 1 tab PO DAILY 05/08/20 Vitamin E 400 units PO DAILY 05/08/20 traZODone [Desyrel] 100 mg PO QHS 05/08/20 Apixaban [Eliquis] 5 mg PO BID tab 06/06/20 Lamotrigine [Lamictal] 225 mg PO BID tab 06/06/20 Magnesium Hydroxide [Milk Of 30 ml PO .PRN X 1 PRN udc 06/06/20 Magnesia] Senna/Docusate Sodium [Senokot-S] 2 tab PO BID tab 06/06/20 Tizanidine HCl [Zanaflex] 4 mg PO DAILY@2100 tab 06/06/20 Tolterodine Tartrate [Detrol LA] 2 mg PO DAILY cap.sa 06/06/20 Fluoxetine HCl 60 mg PO DAILY 06/29/20 Hydrocodone Bitart/Apap 5-325 1 tab PO Q6H PRN PRN 06/29/20 [[place] 5MG-325MG] Omeprazole 20 mg PO DAILY 06/29/20 Atorvastatin Calcium [Lipitor] 20 mg PO QHS 07/08/20 Bisacodyl 10 mg [place] DAILY PRN PRN 07/08/20 Buspirone HCl 5 mg PO TID 07/08/20 Capsaicin 1 applic TP TID 07/08/20 Cholecalciferol (Vitamin D3) 50,000 unit PO QMONTH 07/08/20 [D3-50] Diltiazem CD [Cardizem CD] 240 mg PO BID 07/08/20 Furosemide [Lasix] 20 mg PO DAILY 07/08/20 Lactobacillus Rhamnosus GG 1 ea PO DAILY 07/08/20 [Culturelle] Smz/Tmp Ds [Bactrim Ds] 1 tab PO BID 07/08/20 Sodium Phosphate,Laurel-Dibasic 1 bottle [place] PRN PRN 07/08/20 [Enema Ready To Use] Surgical History: Surgical History (Last Reviewed 05/09/20 @ 14:[address] Taisha Mcnulty DO) History of hysterectomy Z90.710 vaginal fistula repair History of carpal tunnel release Z98.890 History of tonsillectomy and adenoidectomy Z98.890 History of total left knee replacement (TKR) Z96.652 History of total right knee replacement (TKR) Z96.651 Hx of cholecystectomy Z90.49 Surgical History: - - T+A, Cholecystectomy, Hysterectomy, Vaginal fistula repairs, L TKR, Bunion/hammertoe RLE, Carpal tunnel BL. Coiling of L PICA on 04/25/[address] 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 Chest x-ray showed no acute infiltrate with a left-sided PIC. Agree with CT head interpretation. - Physical Exam Vitals/I&O's: Vital Signs Temp Pulse Resp BP Pulse Ox 35.9 C L 88 18 105/67 97 07/09/20 04:00 07/09/20 07:00 07/09/20 07:00 07/09/20 07:00 07/09/20 07:00 Oxygen Flow Rate (L/min) 2 Oxygen Delivery Method Nasal Cannula Weight: 134 kg Body Mass Index (BMI) 45.0 Finger Stick Blood Glucose 154 Intake and Output for Last 24 Hours 07/07/20 07/08/20 07/09/20 23:59 23:59 23:59 Intake Total 3515.59 / 3520.29 811.15 / 811.15 Output Total 280 / 280 1115 / 1115 Balance 3235.59 / 3240.29 -303.85 / -303.85 General: Alert, Oriented x3, Cooperative, No apparent distress, - - Morbidly obese. Speaking in full sentences. HEENT: Atraumatic, PERRLA, EOMI, Normocephalic, - - No scleral icterus or injection noted Oral: Moist Mucosa, No Gingival or Mucosal Lesions/ Ulcerations Neck: Supple, No JVD, No Nodes, Trachea Midline Lungs: No rhonchi, No wheeze, No rales, Diminished, - - Fair effort Cardiovascular: Normal S1, Normal S2, No murmurs, Irregular Rate, No rub noted, No Gallop, - - Echo completed, but not interpreted Abdomen: Bowel Sounds Present, Soft, Non Tender, Non-Distended, Obese Extremities: No clubbing, No cyanosis, Edema - Bilateral lower extremities Skin: Ulcer/ Wound - Healing right posterior calf wound, - - Left lower extremity with chronic skin changes and mild erythema Musculoskeletal: No Tenderness to Palpation of Joints or Extremities Lymphatic: No Cervical, Supraclavicular, or Inguinal Adenopathy Neurological: Cranial nerves II-XII grossly intact, - - Mild left-sided weakness. Psych/Mental Status: Anxious, Flat Affect Laboratory Results 07/08/20 13:49: POC Glucose 154 H 07/08/20 13:55: WBC 6.4, RBC 3.76 L, Hgb 10.9 L, Hct 35.1 L, MCV 93.4, MCH 29.0, MCHC 31.1 L, RDW Std Deviation 72.5 H, RDW Coeff of Eric 21.6 H, Plt Count 263, MPV 9.9, Immature Gran % (Auto) 3.400 H, Neut % (Auto) 54.1, Lymph % (Auto) 33.0, Laurel % (Auto) 7.7, Eos % (Auto) 1.3, Baso % (Auto) 0.5, Absolute Neuts (auto) 3.5, Absolute Lymphs (auto) 2.11, Nucleated RBC % 0, Differential Comment SCANNED, Anisocytosis 2+, Microcytosis 1+, Macrocytosis 1+ 07/08/20 13:55: Sodium 140, Potassium 2.9 L, Chloride 102, Carbon Dioxide 33.0 H, Anion Gap 5, BUN 11, Creatinine 0.50 L, Estim Creat Clear Calc 100.94, Est GFR (MDRD) Af Amer 158, Est GFR (MDRD) Non-Af 131, BUN/Creatinine Ratio 21.9 H, Glucose 145 H, Calcium 8.1 L, Total Bilirubin 0.60, AST 43 H, ALT 50, Alkaline Phosphatase 147 H, Troponin I < 0.015, Total Protein 5.6 L, Albumin 2.5 L, Globulin 3.1, Albumin/Globulin Ratio 0.8 L 07/08/20 13:55: Magnesium 1.8 07/08/20 13:55: B-Natriuretic Peptide 45.5 07/08/20 13:55: Lactic Acid 1.9 07/08/20 16:15: Urine Color Yellow, Urine Clarity Clear, Urine pH 6.5, Ur Specific [place] 1.010, Urine Protein Negative, Urine Glucose (UA) Normal, Urine Ketones Negative, Urine Occult Blood Negative, Urine Nitrite Negative, Urine Bilirubin Negative, Urine Urobilinogen Normal, Ur Leukocyte Esterase Negative, Urine RBC 0 SEEN, Urine WBC 0 SEEN, Ur Squamous Epith Cells 0 SEEN, Urine Bacteria 0 SEEN, Urine Mucus 0 SEEN 07/09/20 04:30: WBC 5.4, RBC 3.37 L, Hgb 9.9 L, Hct 31.8 L, MCV 94.4, MCH 29.4, MCHC 31.1 L, RDW Std Deviation 74.3 H, RDW Coeff of Eric 22.1 H, Plt Count 208, MPV 9.4, Immature Gran % (Auto) 3.200 H, Neut % (Auto) 55.4, Lymph % (Auto) 32.5, Laurel % (Auto) 7.3, Eos % (Auto) 0.9, Baso % (Auto) 0.7, Absolute Neuts (auto) 3.0, Absolute Lymphs (auto) 1.74, Nucleated RBC % 0, Differential Comment SCANNED 07/09/20 04:30: Sodium 143, Potassium 3.3 L, Chloride 109 H, Carbon Dioxide 30.0, Anion Gap 4 L, BUN 8, Creatinine 0.32 L, Estim Creat Clear Calc 176.81, Est GFR (MDRD) Af Amer 265, Est GFR (MDRD) Non-Af 219, BUN/Creatinine Ratio 24.9 H, Glucose 97, Calcium 7.6 L, Magnesium 2.0, Total Bilirubin 0.60, AST 27, ALT 40, Alkaline Phosphatase 112, Total Protein 4.8 L, Albumin 2.1 L, Globulin 2.7, Albumin/Globulin Ratio 0.8 L 07/09/20 04:30: Triglycerides 108, Cholesterol 111, LDL Cholesterol 53, VLDL Cholesterol 22, HDL Cholesterol 36 L Current Medications Acetaminophen (Tylenol) 650 mg PO Q6H PRN PRN PRN Reason: Pain Score 1-10/Temp > 100.7 F Apixaban (Eliquis) 5 mg PO BID [facility] Atorvastatin Calcium (Lipitor) 40 mg PO QHS [facility] Last Admin: 07/08/20 23:38 Dose: 40 mg Documented by: Buspirone HCl (Buspar) 5 mg PO TID [facility] Last Admin: 07/09/20 06:26 Dose: 5 mg Documented by: Heparin Sodium (Beef Lung) () 50 units IV UD PRN PRN Reason: PICC Line Heparin Flush Norepinephrine Bitartrate 8 mg (/ Sodium Chloride) 250 mls @ 9.375 mls/hr CONT INF .[id number] [facility]; Protocol Last Titration: 07/09/20 03:00 Dose: 0 mcg/min, 0 mls/hr Documented by: Piperacillin Sod/Tazobactam (Sod 3.375 gm/ Sodium Chloride) 50 mls @ 12.5 mls/hr IV Q8 [facility] Last Admin: 07/09/20 06:25 Dose: 12.5 mls/hr Documented by: Vancomycin IV Pharmacy to Dose (1 ea/ Sodium Chloride) 500 mls @ 250 mls/hr IV X1 PRN; Protocol PRN Reason: Rx to Dose Vancomycin HCl 1,500 mg/ (Sodium Chloride) 530 mls @ 250 mls/hr IV Q8H [facility] Last Admin: 07/09/20 08:05 Dose: 250 mls/hr Documented by: Sodium Chloride () 250 mls @ 15 mls/hr IV .[id number] PRN PRN Reason: Saline Flush Sodium Chloride () 250 mls @ 15 mls/hr IV .[id number] PRN PRN Reason: Additional IVPB Infusion Lamotrigine (Lamictal) 225 mg PO BID [facility] Last Admin: 07/08/20 23:37 Dose: 225 mg Documented by: Ondansetron HCl (Zofran) 4 mg IV Q8H PRN PRN PRN Reason: NAUSEA/VOMITING Pantoprazole Sodium (Protonix) 20 mg PO DAILY [facility] Senna/Docusate Sodium (Senokot-S, Sena-Colace) 1 tablet PO BID [facility] Last Admin: 07/08/20 23:38 Dose: 1 tablet Documented by: Sodium Chloride () 10 - 40 ml IV UD PRN PRN Reason: Open End PICC Flush Last Admin: 07/09/20 08:04 Dose: 20 ml Documented by: Sodium Chloride (0.9% Nacl (Sterile) Posiflush) 10 - 40 ml IV UD PRN PRN Reason: Port access or dressing change Sodium Chloride () 10 - 40 ml IV UD PRN PRN Reason: SALINE FLUSH Clinical Impression(s) from Imaging Studies Brain CT 07/08/20 13:56 IMPRESSION: No acute intracranial hemorrhage, mass effect or acute large territory infarcts. These consider MRI exam of the brain if there is clinical concern for hyperacute ischemia Electronically Signed: Anival Otero, at 14:22 EDT Tel , Service support , Head/Neck CTA 07/08/20 14:38 Chest X-Ray 07/08/20 20:14 IMPRESSION: PICC line with tip in the lower right atrium, recommend retraction by 8 cm. Electronically Signed: Jenn Kirkpatrick at 20:33 EDT Tel , Service support , Chest X-Ray 07/08/20 20:52 IMPRESSION: PICC line terminating with its tip in the SVC. Electronically Signed: Jenn Kirkpatrick at 21:53 EDT Tel , Service support , Chest X-Ray 07/08/20 21:41 IMPRESSION: Left PICC line with tip at the junction of the right atrium and SVC. Electronically Signed: Jenn Kirkpatrick at 22:23 EDT Tel , Service support , Assessment/Plan RECOMMENDATIONS: 1. Continue to hold Cardizem, possibly reinitiate at lower dosing 2. Fluid boluses as necessary 3. Okay to continue baseline aspirin, statin and Eliquis 4. Therapies are consulted 5. Wean oxygen as tolerated IMPRESSIONS: 1. Acute right occipital lobe CVA Unclear if this represents a watershed infarct as patient is currently on Eliquis therapy. Patient did have a recent coiling in the posterior circulation, so this may have been a complication of that intervention. Neurology has been consulted. Anticipate a repeat CT scan in 24 hours. Blood pressure appears to be doing better at this time. Unclear if patient should have permissive hypertension given recent coiling and concern for development of A. fib with RVR. Await neurology recommendations. 2. Persistent hypokalemia Unclear etiology. Patient will be supplemented as necessary. Patient does not appear to be clinically acidotic. Patient may have decreased dietary intake. Renal function is appropriate at this time. Patient is on baseline diuretic therapy 3. Recent hemorrhagic CVA status post coiling Patient with coiling completed on 04/25/2020 secondary to subarachnoid hemorrhage. PT/OT has been consulted for evaluation. 4. Hypertension With reported hypotension on presentation. Cardizem has been held. May need to reinitiate at lower dosing once blood pressure stabilizes. Patient was also on diuretic therapy. Patient does not appear to be volume depleted at this time, but blood pressures are adequate and she is off of pressors. 5. Hyperlipidemia/morbid obesity/overactive bladder/bipolar disorder/inflammatory polyarthropathy/persistent A. fib/Sanchez/GERD/reported COPD Complicates care, management, recovery and prognosis. Okay to continue with baseline medications from my perspective. 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 No intervention is likely required. Patient did have an echocardiogram in April showing a preserved ejection fraction. This has been repeated, which is likely appropriate given reported hypotension on presentation. Patient likely has a lower baseline blood pressure secondary to Sanchez. Patient does not appear to be in exacerbation of COPD at this time. Inpatient E&M: 27040 Init Hosp L3
[2020-07-09] MEDS: Pantoprazole Sodium 20 MG Tablet PO (11:55)
[2020-07-09] MEDS: lamoTRIgine 150 MG Tablet 225 MG PO ×2 (11:55→21:56)
[2020-07-09] MEDS: Senna/Docusate Sodium 1 Tablet PO ×2 (11:55→21:57)
[2020-07-09 12:06] LABS: Hemoglobin A1c 6.3 % (3.8-5.6)
--- NOTE | 2020-07-09 12:12 | CASEMGMT ---
RN CM Note: participated in ICU interdisciplinary rounds. Patient remains on room air, hypokalemia- K-dur x 2, hypotension- norepi gtt weaned off overnight, cardizem held, blood cultures pending. Tele-Neuro consult today: MRI recommended. -Patient is from [facility] [place] consult for return to SNF DC Plan: per social work-anticipate return to SNF on discharge. Lovely GALEANA RN ACM
--- NOTE | 2020-07-09 14:07 | CHAPLAIN ---
Type of Pastoral Visit _x__ Initial Visit ___ Follow-up Visit ___ On-call Visit ___ General Patient Visit ___ Spiritual Assessment ___ Family Conference ___ Bereavement ___ Rapid Response ___ Code Blue ___ Other (describe below) Pastoral Care Referral From _x__ Patient ___ Family ___ Nurse ___ Physician ___ Cotton Stripper ___ Real Estate Recruiter ___ Other (describe below) Sacrament/Intervention ___ Active listening ___ Anointing ___ Nondenominational ___ Bereavement ___ Communion ___ Elke exploration ___ ___ Life review ___ Prayer ___ Reconciliation ___ Sacrament of Sick _x__ Supportive presence ___ Wedding ___ Other (describe below) Pastoral Comments patient was moved to U from ICU today; pt is awake and welcoming but states that she is sick and just called for RN to come to room; pt requests a visit tomorrow from this brand development manager
[2020-07-09] MEDS: dilTIAZem CD 120 MG Capsule PO ×2 (15:29→21:56)
[2020-07-09] MEDS: APIXABAN 5 MG TABLET PO ×2 (15:29→21:56)
[2020-07-09] MEDS: Ondansetron 4 MG/2 ML Vial IV (15:31)
[2020-07-09] MEDS: Atorvastatin Calcium 40 MG Tablet PO (21:57)
[2020-07-10] VITALS (15 sets, daily range): BP systolic 108–147; BP diastolic 66–97; PULSE 86–123; RESP 18–20; TEMP 36.4–37.4; O2SAT 86–99; BMI 45.0
[2020-07-10] MEDS: dilTIAZem 25 MG/5 ML Vial 5 MG IV BOLUS ×2 (00:57→02:59)
[2020-07-10] MEDS: 0.9% Saline Lock 10 ML Syringe IV ×3 (00:59→10:17)
[2020-07-10] MEDS: busPIRone 5 MG Tablet PO (06:28)
[2020-07-10 06:30] LABS: Absolute Lymphocyte Count 1.17 X10^3/uL (0.83-4.51); Absolute Neutrophil Count 4.1 X10^3/uL (2.0-7.7); Basophil# 0.05 X10^3/uL; Basophil% 0.8 % (0-1); Eosinophil# 0.06 X10^3/uL; Hematocrit 32.3 % (37-47); Hemoglobin 9.8 g/dL (12.0-15.0); Lymphocyte # 1.17 X10^3/ul (4.0); Lymphocyte % 19.4 % (19-41); Mean Corp Hgb Conc 30.3 g/dL (32-36); Mean Corpuscular Hgb 28.9 pg (27.0-32.0); Mean Corpuscular Volume 95.3 fL (81-99); Monocyte# 0.44 X10^3/uL; Monocyte% 7.3 % (0-10); NRBC Flagged by Analyzer 0 % (0-5); Neutrophil # 4.12 X10^3/uL (2.7-7.7); Neutrophil % 68.5 % (47-70); POSITIVE MORPHOLOGY YES; Platelet Count 212 K/mm3 (150-450); RBC Distribution Width CV 22.1 % (11.6-14.6); RBC Distribution Width SD 75.9 fl (35.1-43.9); Red Blood Count 3.39 M/mm3 (4.2-5.4)
[2020-07-10 06:37] LABS: Differential Indicated SCAN CRITERIA MET
[2020-07-10 06:51] LABS: ALB/GLOB Ratio 0.8 RATIO (0.9-2.4); AST(SGOT) 23 U/L (15-37); Alanine Aminotransfer ALT/SGPT 32 U/L (13-56); Albumin, Serum 2.2 g/dL (3.2-5.0); Alkaline Phosphatase 111 U/L (45-117); Anion Gap 4 (5-15); BUN 8 mg/dL (7-18); BUN/Creat Ratio 26.6 RATIO (10-20); Calcium,Total 7.9 mg/dL (8.5-10.1); Chloride 110 mmol/L (98-107); EST Glomerular Filtration Rate 236 mL/min (>60); Est Glom Filt Rate - Afr Amer 285 mL/min (>60); Estimated Creatinine Clearance 188.59 ml/min; Globulin 2.8 g/dL (2.2-4.2); Glucose 107 mg/dL (74-106); Potassium 3.4 mmol/L (3.5-5.1); Sodium Level 142 mmol/L (136-145)
[2020-07-10 07:00] LABS: Anisocytosis 2+; Polychromasia RARE
--- NOTE | 2020-07-10 09:01 | MRI_ITS ---
STUDY: MRI BRAIN WITHOUT CONTRAST REASON FOR EXAM: Female, 64 years old. diplopia, left sided weakness, difficulty walking ; hx PICA aneurysm coiling 04/2020 TECHNIQUE: Standardized multiplanar fat and water weighted pulse sequences were obtained. COMPARISON: 07/08/2020 CT head. FINDINGS: There is mild cerebral atrophy with widening of the extra-axial spaces and ventricular dilatation. There are multiple white matter hyperintensities, distributed throughout the deep white matter tracts of the cerebral hemispheres, consistent with moderate chronic white matter ischemic changes. Normal bilateral basal ganglia. Normal thalami. There is no extra-axial fluid accumulation. Normal flow voids within the major intracranial circulation suggesting patency by spin echo criteria. Normal sella turcica, pituitary gland, infundibular stalk, optic chiasm and hypothalamus. Normal tectal plate and pineal gland. Normal midbrain, joby and medulla. Normal cerebellum. Left PICA region Coiling is noted MRI/Brain without Contrast IMPRESSION: No acute intracranial abnormality. Involutional changes of the brain Electronically Signed: Daiana Knott MD at 12:11 EDT Tel , Service support ,
[2020-07-10] MEDS: lamoTRIgine 150 MG Tablet 225 MG PO ×2 (09:17→21:30)
[2020-07-10] MEDS: Pantoprazole Sodium 20 MG Tablet PO (09:17)
[2020-07-10] MEDS: APIXABAN 5 MG TABLET PO ×2 (09:17→21:31)
[2020-07-10] MEDS: Senna/Docusate Sodium 1 Tablet PO (09:18)
[2020-07-10] MEDS: dilTIAZem CD 240 MG Capsule PO ×2 (09:18→21:31)
--- NOTE | 2020-07-10 09:49 | PN_ITS ---
Subjective: Patient transferred out of the intensive care unit yesterday. Blood pressures are much improved compared to previous. Patient was on room air this morning and tolerating well. Patient has had significant swelling of bilateral lower extremities. General: Alert, Oriented x3, Cooperative, No apparent distress, - - Morbidly obese. No dysarthria. Speaking in full sentences. HEENT: Atraumatic, PERRLA, EOMI, Normocephalic, - - No scleral icterus or injection noted Oral: Moist Mucosa, No Gingival or Mucosal Lesions/ Ulcerations Neck: Supple, Negative Hepatojugular Reflux, Trachea Midline, JVD, Right Lungs: No rhonchi, No wheeze, No rales, Diminished Cardiovascular: Normal S1, Normal S2, No murmurs, No rub noted, No Gallop, Tachycardic Abdomen: Bowel Sounds Present, Soft, Non Tender, Non-Distended, Obese Extremities: No clubbing, No cyanosis, Edema - Bilateral lower extremities, - - Venous stasis changes to bilateral lower extremities. Erythema improves with elevation. Skin: Rash Present - Bilateral lower extremities, but improves with elevation Musculoskeletal: No Tenderness to Palpation of Joints or Extremities Lymphatic: No Cervical, Supraclavicular, or Inguinal Adenopathy Neurological: Cranial nerves II-XII grossly intact Psych/Mental Status: Flat Affect Vital Signs Temp Pulse Resp BP Pulse Ox 37.1 C 103 H 18 147/91 H 93 07/10/20 08:47 07/10/20 08:47 07/10/20 08:47 07/10/20 08:47 07/10/20 09:34 Oxygen Flow Rate (L/min) 4 Oxygen Delivery Method Nasal Cannula Weight: 134 kg Body Mass Index (BMI) 45.0 Finger Stick Blood Glucose 154 Intake and Output for Last 24 Hours 07/08/20 07/09/20 07/10/20 23:59 23:59 23:59 Intake Total 3515.59 / 3520.29 2121.15 / 2361.15 570 / 570 Output Total 280 / 280 2065 / 2265 400 / 400 Balance 3235.59 / 3240.29 56.15 / 96.15 170 / 170 Labs (Last 48 Hours) 07/08/20 07/08/20 07/08/20 13:49 13:55 13:55 WBC 6.4 RBC 3.76 L Hgb 10.9 L Hct 35.1 L MCV 93.4 MCH 29.0 MCHC 31.1 L RDW Std Deviation 72.5 H RDW Coeff of Eric 21.6 H Plt Count 263 MPV 9.9 Immature Gran % (Auto) 3.400 H Neut % (Auto) 54.1 Lymph % (Auto) 33.0 [place] % (Auto) 7.7 Eos % (Auto) 1.3 Baso % (Auto) 0.5 Absolute Neuts (auto) 3.5 Absolute Lymphs (auto) 2.11 Nucleated RBC % 0 Differential Comment SCANNED Polychromasia Anisocytosis 2+ Microcytosis 1+ Macrocytosis 1+ Sodium 140 Potassium 2.9 L Chloride 102 Carbon Dioxide 33.0 H Anion Gap 5 BUN 11 Creatinine 0.50 L Estim Creat Clear Calc 100.94 Est GFR (MDRD) Af Amer 158 Est GFR (MDRD) Non-Af 131 BUN/Creatinine Ratio 21.9 H Glucose 145 H Hemoglobin A1c Lactic Acid Calcium 8.1 L Magnesium Total Bilirubin 0.60 AST 43 H ALT 50 Alkaline Phosphatase 147 H Troponin I < 0.015 B-Natriuretic Peptide Total Protein 5.6 L Albumin 2.5 L Globulin 3.1 Albumin/Globulin Ratio 0.8 L Triglycerides Cholesterol LDL Cholesterol VLDL Cholesterol HDL Cholesterol Urine Color Urine Clarity Urine pH Ur Specific [place] Urine Protein Urine Glucose (UA) Urine Ketones Urine Occult Blood Urine Nitrite Urine Bilirubin Urine Urobilinogen Ur Leukocyte Esterase Urine RBC Urine WBC Ur Squamous Epith Cells Urine Bacteria Urine Mucus POC Glucose 154 H 07/08/20 07/08/20 07/08/20 13:55 13:55 13:55 WBC RBC Hgb Hct MCV MCH MCHC RDW Std Deviation RDW Coeff of Eric Plt Count MPV Immature Gran % (Auto) Neut % (Auto) Lymph % (Auto) [place] % (Auto) Eos % (Auto) Baso % (Auto) Absolute Neuts (auto) Absolute Lymphs (auto) Nucleated RBC % Differential Comment Polychromasia Anisocytosis Microcytosis Macrocytosis Sodium Potassium Chloride Carbon Dioxide Anion Gap BUN Creatinine Estim Creat Clear Calc Est GFR (MDRD) Af Amer Est GFR (MDRD) Non-Af BUN/Creatinine Ratio Glucose Hemoglobin A1c Lactic Acid 1.9 Calcium Magnesium 1.8 Total Bilirubin AST ALT Alkaline Phosphatase Troponin I B-Natriuretic Peptide 45.5 Total Protein Albumin Globulin Albumin/Globulin Ratio Triglycerides Cholesterol LDL Cholesterol VLDL Cholesterol HDL Cholesterol Urine Color Urine Clarity Urine pH Ur Specific [place] Urine Protein Urine Glucose (UA) Urine Ketones Urine Occult Blood Urine Nitrite Urine Bilirubin Urine Urobilinogen Ur Leukocyte Esterase Urine RBC Urine WBC Ur Squamous Epith Cells Urine Bacteria Urine Mucus POC Glucose 07/08/20 07/09/20 07/09/20 16:15 04:30 04:30 WBC 5.4 RBC 3.37 L Hgb 9.9 L Hct 31.8 L MCV 94.4 MCH 29.4 MCHC 31.1 L RDW Std Deviation 74.3 H RDW Coeff of Eric 22.1 H Plt Count 208 MPV 9.4 Immature Gran % (Auto) 3.200 H Neut % (Auto) 55.4 Lymph % (Auto) 32.5 [place] % (Auto) 7.3 Eos % (Auto) 0.9 Baso % (Auto) 0.7 Absolute Neuts (auto) 3.0 Absolute Lymphs (auto) 1.74 Nucleated RBC % 0 Differential Comment SCANNED Polychromasia Anisocytosis Microcytosis Macrocytosis Sodium 143 Potassium 3.3 L Chloride 109 H Carbon Dioxide 30.0 Anion Gap 4 L BUN 8 Creatinine 0.32 L Estim Creat Clear Calc 176.81 Est GFR (MDRD) Af Amer 265 Est GFR (MDRD) Non-Af 219 BUN/Creatinine Ratio 24.9 H Glucose 97 Hemoglobin A1c Lactic Acid Calcium 7.6 L Magnesium 2.0 Total Bilirubin 0.60 AST 27 ALT 40 Alkaline Phosphatase 112 Troponin I B-Natriuretic Peptide Total Protein 4.8 L Albumin 2.1 L Globulin 2.7 Albumin/Globulin Ratio 0.8 L Triglycerides Cholesterol LDL Cholesterol VLDL Cholesterol HDL Cholesterol Urine Color Yellow Urine Clarity Clear Urine pH 6.5 Ur Specific [place] 1.010 Urine Protein Negative Urine Glucose (UA) Normal Urine Ketones Negative Urine Occult Blood Negative Urine Nitrite Negative Urine Bilirubin Negative Urine Urobilinogen Normal Ur Leukocyte Esterase Negative Urine RBC 0 SEEN Urine WBC 0 SEEN Ur Squamous Epith Cells 0 SEEN Urine Bacteria 0 SEEN Urine Mucus 0 SEEN POC Glucose 07/09/20 07/09/20 07/10/20 04:30 04:30 06:06 WBC 6.0 RBC 3.39 L Hgb 9.8 L Hct 32.3 L MCV 95.3 MCH 28.9 MCHC 30.3 L RDW Std Deviation 75.9 H RDW Coeff of Eric 22.1 H Plt Count 212 MPV 9.0 Immature Gran % (Auto) 3.000 H Neut % (Auto) 68.5 Lymph % (Auto) 19.4 [place] % (Auto) 7.3 Eos % (Auto) 1.0 Baso % (Auto) 0.8 Absolute Neuts (auto) 4.1 Absolute Lymphs (auto) 1.17 Nucleated RBC % 0 Differential Comment Polychromasia RARE Anisocytosis 2+ Microcytosis Macrocytosis Sodium Potassium Chloride Carbon Dioxide Anion Gap BUN Creatinine Estim Creat Clear Calc Est GFR (MDRD) Af Amer Est GFR (MDRD) Non-Af BUN/Creatinine Ratio Glucose Hemoglobin A1c 6.3 H Lactic Acid Calcium Magnesium Total Bilirubin AST ALT Alkaline Phosphatase Troponin I B-Natriuretic Peptide Total Protein Albumin Globulin Albumin/Globulin Ratio Triglycerides 108 Cholesterol 111 LDL Cholesterol 53 VLDL Cholesterol 22 HDL Cholesterol 36 L Urine Color Urine Clarity Urine pH Ur Specific [place] Urine Protein Urine Glucose (UA) Urine Ketones Urine Occult Blood Urine Nitrite Urine Bilirubin Urine Urobilinogen Ur Leukocyte Esterase Urine RBC Urine WBC Ur Squamous Epith Cells Urine Bacteria Urine Mucus POC Glucose 07/10/20 06:06 WBC RBC Hgb Hct MCV MCH MCHC RDW Std Deviation RDW Coeff of Eric Plt Count MPV Immature Gran % (Auto) Neut % (Auto) Lymph % (Auto) [place] % (Auto) Eos % (Auto) Baso % (Auto) Absolute Neuts (auto) Absolute Lymphs (auto) Nucleated RBC % Differential Comment Polychromasia Anisocytosis Microcytosis Macrocytosis Sodium 142 Potassium 3.4 L Chloride 110 H Carbon Dioxide 28.0 Anion Gap 4 L BUN 8 Creatinine 0.30 L Estim Creat Clear Calc 188.59 Est GFR (MDRD) Af Amer 285 Est GFR (MDRD) Non-Af 236 BUN/Creatinine Ratio 26.6 H Glucose 107 H Hemoglobin A1c Lactic Acid Calcium 7.9 L Magnesium Total Bilirubin 0.80 AST 23 ALT 32 Alkaline Phosphatase 111 Troponin I B-Natriuretic Peptide Total Protein 5.0 L Albumin 2.2 L Globulin 2.8 Albumin/Globulin Ratio 0.8 L Triglycerides Cholesterol LDL Cholesterol VLDL Cholesterol HDL Cholesterol Urine Color Urine Clarity Urine pH Ur Specific [place] Urine Protein Urine Glucose (UA) Urine Ketones Urine Occult Blood Urine Nitrite Urine Bilirubin Urine Urobilinogen Ur Leukocyte Esterase Urine RBC Urine WBC Ur Squamous Epith Cells Urine Bacteria Urine Mucus POC Glucose Microbiology 07/08/20 16:15 Urine Catheter - [place] Urine Culture - Final Culture exhibits no growth. Medical Necessity - Tobacco Use Smoking Status: Former smoker Tobacco Use: Non-smoker Assessment/Plan All Active Problems (Last Reviewed 05/09/20 @ 14:[address] Taisha Mcnulty, DO) Acute exacerbation of chronic obstructive pulmonary disease (COPD) (Resolved) Acute fall (Resolved) Adverse drug reaction (Resolved) Allergic reaction due to correct medicinal substance properly administered (Resolved) Atrial fibrillation with RVR (Resolved) CAP (community acquired pneumonia) (Resolved) Cellulitis of lower leg (Resolved) History of MRSA infection (Resolved) Hypokalemia (Resolved) Infected open wound (Resolved) Influenza B (Resolved) Laceration of head (Resolved) MRSA (methicillin resistant Staphylococcus aureus) infection (Resolved) Metabolic alkalosis (Resolved) Non-healing wound of lower extremity (Resolved) Nonhealing nonsurgical wound limited to breakdown of skin (Resolved) Parainfluenza virus bronchopneumonia (Resolved) Pneumonia (Resolved) Sinusitis (Resolved) Syncope and collapse (Resolved) RECOMMENDATIONS: 1. Continue Cardizem at lower doses 2. Give single dose of diuretic therapy 3. Okay to continue baseline aspirin, statin and Eliquis 4. Therapies are consulted 5. Wean oxygen as tolerated 6. Hemodynamically stable on room air. Will sign off from a critical care perspective IMPRESSIONS: 1. Acute right occipital lobe CVA Unclear if this represents a watershed infarct as patient is currently on Eliquis therapy. Patient did have a recent coiling in the posterior circulati on, so this may have been a complication of that intervention. Neurology has been consulted. Anticipate a repeat CT scan versus MRI in the near future. Blood pressure appears to be doing better at this time. Unclear if patient should have permissive hypertension given recent coiling and concern for development of A. fib with RVR. Await neurology recommendations. 2. Persistent hypokalemia Unclear etiology. Patient will be supplemented as necessary. Patient does not appear to be clinically acidotic. Patient may have decreased dietary intake. Renal function is appropriate at this time. Patient is on baseline diuretic therapy 3. Recent hemorrhagic CVA status post coiling Patient with coiling completed on 04/25/2020 secondary to subarachnoid hemorrhage. PT/OT has been consulted for evaluation. 4. Hypertension With reported hypotension on presentation. Cardizem has been reduced from baseline. Patient was also on diuretic therapy. We will introduce diuretics IV today. Likely okay to reinitiate baseline regimen tomorrow 5. Hyperlipidemia/morbid obesity/overactive bladder/bipolar disorder/inflammatory polyarthropathy/persistent A. fib/Sanchez/GERD/reported COPD Complicates care, management, recovery and prognosis. Okay to continue with baseline medications from my perspective. 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 No intervention is likely required. Patient did have an echocardiogram in April showing a preserved ejection fraction. This has been repeated, which is likely appropriate given reported hypotension on presentation. Patient likely has a lower baseline blood pressure secondary to Sanchez. Patient does not appear to be in exacerbation of COPD at this time. Inpatient E&M: [id number] Subs Hosp L2
[2020-07-10] MEDS: Furosemide 40 MG/4 ML Vial IV (10:17)
--- NOTE | 2020-07-10 11:29 | PN_ITS ---
Reason for Visit: Follow-up on acute right occipital CVA/hypotension Subjective: Patient was seen and examined. Patient reportedly aspirated on her pills this morning. Speech therapy was consulted. She has been kept NPO. Objective: Physical exam: General: Alert, Oriented x3, Cooperative, No apparent distress, - - Morbidly obese, on 2 L of oxygen HEENT: Atraumatic, PERRLA, EOMI, Normocephalic Oral: Moist Mucosa Neck: Supple Lungs: Clear to auscultation, Normal air movement Cardiovascular: Regular rate, Regular Rhythm, Normal S1, Normal S2, No murmurs Abdomen: Bowel Sounds Present, Soft, Non Tender, Non-Distended, No Hepato- splenomegaly Extremities: Edema - Trace bilateral edema, erythema of the right lower extremity with an area of healed blister Skin: - - see under extremities Musculoskeletal: No Tenderness to Palpation of Joints or Extremities Lymphatic: No Cervical, Supraclavicular, or Inguinal Adenopathy Neurological: Cranial nerves II-XII grossly intact, Neuro grossly intact Psych/Mental Status: Normal Affect, Appropriate Vitals/I&O's: Vital Signs Temp Pulse Resp BP Pulse Ox 98.7 F 103 H 18 147/91 H 93 07/10/20 08:47 07/10/20 08:47 07/10/20 08:47 07/10/20 08:47 07/10/20 09:34 Oxygen Flow Rate (L/min) 4 Oxygen Delivery Method Nasal Cannula Weight: 134 kg Body Mass Index (BMI) 45.0 Finger Stick Blood Glucose 154 Intake and Output for Last 24 Hours 07/08/20 07/09/20 07/10/20 23:59 23:59 23:59 Intake Total 3515.59 / 3520.29 2121.15 / 2361.15 570 / 570 Output Total 280 / 280 2065 / 2265 400 / 400 Balance 3235.59 / 3240.29 56.15 / 96.15 170 / 170 Microbiology Past 72 Hours 07/08/20 16:15 Urine Catheter - [place] Urine Culture - Final Culture exhibits no growth. Laboratory Results 07/09/20 04:30: Hemoglobin A1c 6.3 H 07/10/20 06:06: WBC 6.0, RBC 3.39 L, Hgb 9.8 L, Hct 32.3 L, MCV 95.3, MCH 28.9, MCHC 30.3 L, RDW Std Deviation 75.9 H, RDW Coeff of Eric 22.1 H, Plt Count 212, MPV 9.0, Immature Gran % (Auto) 3.000 H, Neut % (Auto) 68.5, Lymph % (Auto) 19.4, [place] % (Auto) 7.3, Eos % (Auto) 1.0, Baso % (Auto) 0.8, Absolute Neuts (auto) 4.1, Absolute Lymphs (auto) 1.17, Nucleated RBC % 0, Polychromasia RARE, Anisocytosis 2+ 07/10/20 06:06: Sodium 142, Potassium 3.4 L, Chloride 110 H, Carbon Dioxide 28.0, Anion Gap 4 L, BUN 8, Creatinine 0.30 L, Estim Creat Clear Calc 188.59, Est GFR (MDRD) Af Amer 285, Est GFR (MDRD) Non-Af 236, BUN/Creatinine Ratio 26.6 H, Glucose 107 H, Calcium 7.9 L, Total Bilirubin 0.80, AST 23, ALT 32, Alkaline Phosphatase 111, Total Protein 5.0 L, Albumin 2.2 L, Globulin 2.8, Albumin/Globulin Ratio 0.8 L Current Medications Acetaminophen (Tylenol) 650 mg PO Q6H PRN PRN PRN Reason: Pain Score 1-10/Temp > 100.7 F Apixaban (Eliquis) 5 mg PO BID [facility] Last Admin: 07/10/20 09:17 Dose: 5 mg Documented by: Atorvastatin Calcium (Lipitor) 40 mg PO QHS [facility] Last Admin: 07/09/20 21:57 Dose: 40 mg Documented by: Buspirone HCl (Buspar) 5 mg PO TID [facility] Last Admin: 07/10/20 06:28 Dose: 5 mg Documented by: Diltiazem HCl (Cardizem Cd) 240 mg PO BID [facility] Last Admin: 07/10/20 09:18 Dose: 240 mg Documented by: Heparin Sodium (Beef Lung) () 50 units IV UD PRN PRN Reason: PICC Line Heparin Flush Piperacillin Sod/Tazobactam (Sod 3.375 gm/ Sodium Chloride) 50 mls @ 12.5 mls/hr IV Q8 [facility] Last Admin: 07/10/20 06:28 Dose: 12.5 mls/hr Documented by: Sodium Chloride () 250 mls @ 15 mls/hr IV .[id number] PRN PRN Reason: Saline Flush Last Infusion: 07/10/20 09:34 Dose: Infused Documented by: Sodium Chloride () 250 mls @ 15 mls/hr IV .[id number] PRN PRN Reason: Additional IVPB Infusion Lamotrigine (Lamictal) 225 mg PO BID [facility] Last Admin: 07/10/20 09:17 Dose: 225 mg Documented by: Ondansetron HCl (Zofran) 4 mg IV Q8H PRN PRN PRN Reason: NAUSEA/VOMITING Last Admin: 07/09/20 15:31 Dose: 4 mg Documented by: Pantoprazole Sodium (Protonix) 20 mg PO DAILY [facility] Last Admin: 07/10/20 09:17 Dose: 20 mg Documented by: [facility] Stop: 07/11/20 08:01 Senna/Docusate Sodium (Senokot-S, Sena-Colace) 1 tablet PO BID [facility] Last Admin: 07/10/20 09:18 Dose: 1 tablet Documented by: Sodium Chloride () 10 - 40 ml IV UD PRN PRN Reason: Open End PICC Flush Last Admin: 07/10/20 10:17 Dose: 10 ml Documented by: Sodium Chloride (0.9% Nacl (Sterile) Posiflush) 10 - 40 ml IV UD PRN PRN Reason: Port access or dressing change Sodium Chloride () 10 - 40 ml IV UD PRN PRN Reason: SALINE FLUSH Last Admin: 07/10/20 03:01 Dose: 10 ml Documented by: STROKE Vital Signs/Narrative: Vital Signs Temp Pulse Resp BP Pulse Ox 07/10/20 09:34 93 07/10/20 09:20 86 07/10/20 08:47 98.7 F 103 H 18 147/91 H 96 Medical Necessity - Tobacco Use Smoking Status: Former smoker Tobacco Use: Non-smoker Assessment/Plan All Active Problems (Last Reviewed 05/09/20 @ 14:[address] Taisha Mcnulty DO) Acute exacerbation of chronic obstructive pulmonary disease (COPD) (Resolved) Acute fall (Resolved) Adverse drug reaction (Resolved) Allergic reaction due to correct medicinal substance properly administered (Resolved) Atrial fibrillation with RVR (Resolved) CAP (community acquired pneumonia) (Resolved) Cellulitis of lower leg (Resolved) History of MRSA infection (Resolved) Hypokalemia (Resolved) Infected open wound (Resolved) Influenza B (Resolved) Laceration of head (Resolved) MRSA (methicillin resistant Staphylococcus aureus) infection (Resolved) Metabolic alkalosis (Resolved) Non-healing wound of lower extremity (Resolved) Nonhealing nonsurgical wound limited to breakdown of skin (Resolved) Parainfluenza virus bronchopneumonia (Resolved) Pneumonia (Resolved) Sinusitis (Resolved) Syncope and collapse (Resolved) T 1. Hypotension, unclear etiology likely related to dehydration/medication side effect, resolved. Urine cultures are negative. Blood cultures are pending. Will discontinue IV Zosyn 2. Stroke-like symptoms likely related to hypotension, CVA ruled out with negative MRI CTA of the head and neck showed acute right occipital lobe lesion Continue on Eliquis 3. Hypokalemia, potassium is 3.4, replaced, recheck in am 4. Hypomagnesemia, resolved, magnesium is 2.0 today 5. 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 A. fib with RVR, HR slightly uncontrolled, resumed on Cardizem 240mg daily, Eliquis Will continue to monitor for hypotension. 7. Chronic right calf posterior wound, wound is healed, mild erythema of the right lower leg We will continue to monitor 8. Hyperlipidemia, continue on statins 9. Super morbid obesity, BMI 44.9, complicates care 10. DVT prophylaxis?on Eliquis 11. Disposition: Pending PT/OT/ST evaluations Possible discharge home versus SNF Inpatient E&M: [id number] Subs Hosp L2
[2020-07-10 12:16] LABS: Bedside Glucose 140 mg/dL (70-110)
--- NOTE | 2020-07-10 15:39 | CASEMGMT ---
SW was told by Speech Therapist that patient's significant other was in the room and wanted to talk with SW about changing nursing homes. STEFANIE met with him, introduced self and role at [facility]. He started to explain his concerns. STEFANIE asked if he talked with anyone at [facility] and he said he did not as they would just cover their tracks. STEFANIE gave him a list of other facilities that are in network with her insurance and the number for the [facility] at [facility]. STEFANIE then went back and spoke with patient a little while later while she was alone. She said she is fine with returning to [facility] and feels safe there. STEFANIE then spoke with Anny at [facility] and let her know. She said that insurance approved her to return. Plan: d/c back to [facility] when ready. Frances ESTRELLA
[2020-07-11] VITALS (10 sets, daily range): BP systolic 107–146; BP diastolic 67–97; PULSE 87–106; RESP 16–18; TEMP 36.8–37.1; O2SAT 93–98; BMI 45.0
[2020-07-11 06:51] LABS: Absolute Lymphocyte Count 1.81 X10^3/uL (0.83-4.51); Absolute Neutrophil Count 3.3 X10^3/uL (2.0-7.7); Basophil# 0.03 X10^3/uL; Basophil% 0.5 % (0-1); Eosinophils% 1.7 % (0-5); Hematocrit 33.7 % (37-47); Hemoglobin 10.2 g/dL (12.0-15.0); Lymphocyte # 1.81 X10^3/ul (4.0); Lymphocyte % 30.5 % (19-41); Mean Corp Hgb Conc 30.3 g/dL (32-36); Mean Corpuscular Hgb 28.4 pg (27.0-32.0); Mean Corpuscular Volume 93.9 fL (81-99); Mean Platelet Vol. 8.6 fl (6.2-12.0); Monocyte# 0.52 X10^3/uL; Monocyte% 8.8 % (0-10); NRBC Flagged by Analyzer 0 % (0-5); Neutrophil % 55.5 % (47-70); POSITIVE MORPHOLOGY YES; Platelet Count 232 K/mm3 (150-450); RBC Distribution Width CV 21.5 % (11.6-14.6); RBC Distribution Width SD 73.2 fl (35.1-43.9); Red Blood Count 3.59 M/mm3 (4.2-5.4); White Blood Count 5.9 K/mm3 (4.4-11.0)
[2020-07-11 06:53] LABS: Differential Indicated SCAN CRITERIA MET
[2020-07-11 07:08] LABS: Differential Comment SCANNED
[2020-07-11 07:09] LABS: Anisocytosis 1+; Polychromasia RARE
[2020-07-11 07:27] LABS: ALB/GLOB Ratio 0.8 RATIO (0.9-2.4); AST(SGOT) 25 U/L (15-37); Alanine Aminotransfer ALT/SGPT 31 U/L (13-56); Albumin, Serum 2.3 g/dL (3.2-5.0); Alkaline Phosphatase 107 U/L (45-117); Anion Gap 4 (5-15); BUN 7 mg/dL (7-18); BUN/Creat Ratio 23.2 RATIO (10-20); Calcium,Total 7.8 mg/dL (8.5-10.1); Chloride 106 mmol/L (98-107); EST Glomerular Filtration Rate 235 mL/min (>60); Est Glom Filt Rate - Afr Amer 284 mL/min (>60); Estimated Creatinine Clearance 188.59 ml/min; Globulin 2.9 g/dL (2.2-4.2); Glucose 90 mg/dL (74-106); Potassium 3.2 mmol/L (3.5-5.1); Protein, Total 5.2 g/dL (6.4-8.2); Sodium Level 140 mmol/L (136-145)
[2020-07-11] MEDS: 0.9% Saline Lock 10 ML Syringe IV (09:44)
[2020-07-11] MEDS: APIXABAN 5 MG TABLET PO ×2 (09:45→21:07)
[2020-07-11] MEDS: lamoTRIgine 150 MG Tablet 225 MG PO ×2 (09:45→21:07)
[2020-07-11] MEDS: dilTIAZem CD 240 MG Capsule PO ×2 (09:45→21:07)
[2020-07-11] MEDS: Potassium Chloride 10mEq/100mL 10 MEQ/100 ML IV.SOLN. 100 MEQ IV BOLUS ×2 (09:47→10:54)
--- NOTE | 2020-07-11 11:51 | PCM.PN.HOSP ---
Reason for Visit: Follow-up on acute strokelike symptoms/hypotension Subjective: Patient was seen and examined. She has been kept n.p.o. by speech therapy on account of choking on pills yesterday. Patient will have a barium swallow tomorrow by speech therapy. She is much more awake and alert alert. Discharge planning also ongoing. Objective: Physical exam: General: Alert, Oriented x3, Cooperative, No apparent distress, - - Morbidly obese, on 2 L of oxygen HEENT: Atraumatic, PERRLA, EOMI, Normocephalic Oral: Moist Mucosa Neck: Supple Lungs: Clear to auscultation, Normal air movement Cardiovascular: Regular rate, Regular Rhythm, Normal S1, Normal S2, No murmurs Abdomen: Bowel Sounds Present, Soft, Non Tender, Non-Distended, No Hepato-splenomegaly Extremities: Edema - Trace bilateral edema, erythema of the right lower extremity with an area of healed blister Skin: - - see under extremities Musculoskeletal: No Tenderness to Palpation of Joints or Extremities Lymphatic: No Cervical, Supraclavicular, or Inguinal Adenopathy Neurological: Cranial nerves II-XII grossly intact, Neuro grossly intact Psych/Mental Status: Normal Affect, Appropriate Vitals/I&O's: Vital Signs Temp Pulse Resp BP Pulse Ox 98.2 F 89 18 146/76 H 98 07/11/20 09:40 07/11/20 09:40 07/11/20 09:40 07/11/20 09:40 07/11/20 09:40 Oxygen Flow Rate (L/min) 2 Oxygen Delivery Method Nasal Cannula Weight: 134 kg Body Mass Index (BMI) 45.0 Finger Stick Blood Glucose 154 Intake and Output for Last 24 Hours 07/09/20 07/10/20 07/11/20 23:59 23:59 23:59 Intake Total 2121.15 / 2361.15 972.5 / 972.5 100 / 100 Output Total 2065 / 2265 3295 / 3295 250 / 250 Balance 56.15 / 96.15 -2322.5 / -2322.5 -150 / -150 Microbiology Past 72 Hours 07/08/20 19:41 Blood Culture (Wb) - Anticubital Left Blood Culture - Preliminary No growth in 48 hours. 07/08/20 19:41 Blood Culture (Wb) - Right Hand Blood Culture - Preliminary No growth in 48 hours. 07/08/20 16:15 Urine Catheter - Dubois Urine Culture - Final Culture exhibits no growth. Laboratory Results 07/10/20 10:23: POC Glucose 140 H 07/11/20 06:41: WBC 5.9, RBC 3.59 L, Hgb 10.2 L, Hct 33.7 L, MCV 93.9, MCH 28.4, MCHC 30.3 L, RDW Std Deviation 73.2 H, RDW Coeff of Eric 21.5 H, Plt Count 232, MPV 8.6, Immature Gran % (Auto) 3.000 H, Neut % (Auto) 55.5, Lymph % (Auto) 30.5, Spencer % (Auto) 8.8, Eos % (Auto) 1.7, Baso % (Auto) 0.5, Absolute Neuts (auto) 3.3, Absolute Lymphs (auto) 1.81, Nucleated RBC % 0, Differential Comment SCANNED, Polychromasia RARE, Anisocytosis 1+ 07/11/20 06:41: Sodium 140, Potassium 3.2 L, Chloride 106, Carbon Dioxide 30.0, Anion Gap 4 L, BUN 7, Creatinine 0.30 L, Estim Creat Clear Calc 188.59, Est GFR (MDRD) Af Amer 284, Est GFR (MDRD) Non-Af 235, BUN/Creatinine Ratio 23.2 H, Glucose 90, Calcium 7.8 L, Total Bilirubin 0.60, AST 25, ALT 31, Alkaline Phosphatase 107, Total Protein 5.2 L, Albumin 2.3 L, Globulin 2.9, Albumin/Globulin Ratio 0.8 L Current Medications Acetaminophen (Tylenol) 650 mg PO Q6H PRN PRN PRN Reason: Pain Score 1-10/Temp > 100.7 F Apixaban (Eliquis) 5 mg PO BID [facility] Last Admin: 07/11/20 09:45 Dose: 5 mg Documented by: Atorvastatin Calcium (Lipitor) 40 mg PO QHS [facility] Last Admin: 07/10/20 21:09 Dose: Not Given Documented by: Buspirone HCl (Buspar) 5 mg PO TID [facility] Last Admin: 07/10/20 21:11 Dose: Not Given Documented by: Diltiazem HCl (Cardizem Cd) 240 mg PO BID [facility] Last Admin: 07/11/20 09:45 Dose: 240 mg Documented by: Heparin Sodium (Beef Lung) () 50 units IV UD PRN PRN Reason: PICC Line Heparin Flush Sodium Chloride () 250 mls @ 15 mls/hr IV .[id number] PRN PRN Reason: Saline Flush Last Infusion: 07/10/20 09:34 Dose: Infused Documented by: Sodium Chloride () 250 mls @ 15 mls/hr IV .[id number] PRN PRN Reason: Additional IVPB Infusion Lamotrigine (Lamictal) 225 mg PO BID [facility] Last Admin: 07/11/20 09:45 Dose: 225 mg Documented by: Ondansetron HCl (Zofran) 4 mg IV Q8H PRN PRN PRN Reason: NAUSEA/VOMITING Last Admin: 07/09/20 15:31 Dose: 4 mg Documented by: Pantoprazole Sodium (Protonix) 20 mg PO DAILY [facility] Last Admin: 07/11/20 10:02 Dose: Not Given Documented by: Senna/Docusate Sodium (Senokot-S, Sena-Colace) 1 tablet PO BID [facility] Last Admin: 07/11/20 10:02 Dose: Not Given Documented by: Sodium Chloride () 10 - 40 ml IV UD PRN PRN Reason: Open End PICC Flush Last Admin: 07/11/20 09:44 Dose: 10 ml Documented by: Sodium Chloride (0.9% Nacl (Sterile) Posiflush) 10 - 40 ml IV UD PRN PRN Reason: Port access or dressing change Sodium Chloride () 10 - 40 ml IV UD PRN PRN Reason: SALINE FLUSH Last Admin: 07/10/20 03:01 Dose: 10 ml Documented by: STROKE Vital Signs/Narrative: Vital Signs Temp Pulse Resp BP Pulse Ox 07/11/20 09:40 98.2 F 89 18 146/76 H 98 Medical Necessity - Tobacco Use Smoking Status: Former smoker Tobacco Use: Non-smoker Assessment/Plan All Active Problems (Last Reviewed 05/09/20 @ 14:[address] Taisha Mcnulty DO) Acute exacerbation of chronic obstructive pulmonary disease (COPD) (Resolved) Acute fall (Resolved) Adverse drug reaction (Resolved) Allergic reaction due to correct medicinal substance properly administered (Resolved) Atrial fibrillation with RVR (Resolved) CAP (community acquired pneumonia) (Resolved) Cellulitis of lower leg (Resolved) History of MRSA infection (Resolved) Hypokalemia (Resolved) Infected open wound (Resolved) Influenza B (Resolved) Laceration of head (Resolved) MRSA (methicillin resistant Staphylococcus aureus) infection (Resolved) Metabolic alkalosis (Resolved) Non-healing wound of lower extremity (Resolved) Nonhealing nonsurgical wound limited to breakdown of skin (Resolved) Parainfluenza virus bronchopneumonia (Resolved) Pneumonia (Resolved) Sinusitis (Resolved) Syncope and collapse (Resolved) T 1. Hypotension, unclear etiology likely related to dehydration/medication side effect, resolved. Urine cultures are negative. Blood cultures are negative Will discontinue IV Zosyn 2. Stroke-like symptoms likely related to hypotension, CVA ruled out with negative MRI CTA of the head and neck showed acute right occipital lobe lesion Continue on Eliquis 3. Dysphagia, history of chronic dysphagia, speech therapy working with patient 4. Hypokalemia, potassium is 3.2, replaced, recheck in am 5. Hypomagnesemia, resolved, magnesium is 2.0 today 5. 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 A. fib with RVR, HR slightly uncontrolled, resumed on Cardizem 240mg daily, Eliquis Will continue to monitor for hypotension. 7. Chronic right calf posterior wound, wound is healed, mild erythema of the right lower leg We will continue to monitor 8. Hyperlipidemia, continue on statins 9. Super morbid obesity, BMI 44.9, complicates care 10. DVT prophylaxis?on Eliquis 11. Disposition: Pending PT/OT/ST evaluations Possible discharge home versus SNF Inpatient E&M: [id number] Subs Hosp L2
--- NOTE | 2020-07-11 13:56 | CASEMGMT ---
STEFANIE received a call from Anny at [facility] and patient's boyfriend called and said he is coming to meat pickler patient's stuff this afternoon as he is taking her home. STEFANIE met with patient, she was alone. She said she is okay with going back to [facility] but her family and boyfriend are not. STEFANIE asked her if she would like SW to talk with them and she said she would. Her boyfriend will be in soon. Patient's boyfriend arrived. STEFANIE allowed them time to talk and then STEFANIE met with them. He said that he is ok with her returning to [facility]. He called them and told them not to back her stuff. STEFANIE then called Anny at [facility] and let her know. STEFANIE also let Anny know that patient is getting a modified barium swallow tomorrow. Frances JENSEN MSW
--- NOTE | 2020-07-11 15:49 | CHAPLAIN ---
Type of Pastoral Visit ___ Initial Visit _x__ Follow-up Visit ___ On-call Visit ___ General Patient Visit ___ Spiritual Assessment ___ Family Conference ___ Bereavement ___ Rapid Response ___ Code Blue ___ Other (describe below) Pastoral Care Referral From _x__ Patient ___ Family ___ Nurse ___ Physician ___ Equities Trader ___ Backroom Associate ___ Other (describe below) Sacrament/Intervention ___ Active listening ___ Anointing ___ Restoration ___ Bereavement ___ Communion ___ Elke exploration ___ ___ Life review _x__ Prayer ___ Reconciliation ___ Sacrament of Sick _x__ Supportive presence ___ Wedding ___ Other (describe below) Pastoral Comments patient was slow to talk but did answer questions; pt welcomed a prayer but no further support desired at this time
[2020-07-12] VITALS (8 sets, daily range): BP systolic 111–132; BP diastolic 65–86; PULSE 85–104; RESP 16–18; TEMP 36.2–37; O2SAT 92–94; BMI 45.0
[2020-07-12] MEDS: 0.9% Saline Lock 10 ML Syringe IV ×3 (00:07→09:13)
[2020-07-12] MEDS: Ondansetron 4 MG/2 ML Vial IV ×2 (00:07→15:07)
[2020-07-12 07:13] LABS: Absolute Lymphocyte Count 1.72 X10^3/uL (0.83-4.51); Absolute Neutrophil Count 3.7 X10^3/uL (2.0-7.7); Basophil# 0.05 X10^3/uL; Basophil% 0.8 % (0-1); Eosinophil# 0.11 X10^3/uL; Eosinophils% 1.7 % (0-5); Hematocrit 34.4 % (37-47); Hemoglobin 10.8 g/dL (12.0-15.0); Lymphocyte # 1.72 X10^3/ul (4.0); Lymphocyte % 26.9 % (19-41); Mean Corp Hgb Conc 31.4 g/dL (32-36); Mean Corpuscular Hgb 29.4 pg (27.0-32.0); Mean Corpuscular Volume 93.7 fL (81-99); Mean Platelet Vol. 9.1 fl (6.2-12.0); Monocyte# 0.52 X10^3/uL; Monocyte% 8.1 % (0-10); NRBC Flagged by Analyzer 0 % (0-5); Neutrophil # 3.69 X10^3/uL (2.7-7.7); Neutrophil % 57.8 % (47-70); POSITIVE MORPHOLOGY YES; Platelet Count 277 K/mm3 (150-450); RBC Distribution Width CV 21.2 % (11.6-14.6); RBC Distribution Width SD 71.8 fl (35.1-43.9); Red Blood Count 3.67 M/mm3 (4.2-5.4); White Blood Count 6.4 K/mm3 (4.4-11.0)
[2020-07-12 07:14] LABS: Differential Indicated SCAN CRITERIA MET
[2020-07-12 07:37] LABS: Anisocytosis 2+; Red Cell Morphology N CHROM NORMAL (NORM C&C)
[2020-07-12 07:52] LABS: ALB/GLOB Ratio 0.9 RATIO (0.9-2.4); AST(SGOT) 22 U/L (15-37); Alanine Aminotransfer ALT/SGPT 27 U/L (13-56); Albumin, Serum 2.3 g/dL (3.2-5.0); Alkaline Phosphatase 100 U/L (45-117); Anion Gap 2 (5-15); BUN 9 mg/dL (7-18); BUN/Creat Ratio 39.6 RATIO (10-20); Calcium,Total 8.1 mg/dL (8.5-10.1); Chloride 105 mmol/L (98-107); Creatinine, Serum 0.23 mg/dL (0.55-1.02); EST Glomerular Filtration Rate 327 mL/min (>60); Est Glom Filt Rate - Afr Amer 395 mL/min (>60); Estimated Creatinine Clearance 245.99 ml/min; Globulin 2.7 g/dL (2.2-4.2); Glucose 82 mg/dL (74-106); Potassium 3.2 mmol/L (3.5-5.1); Sodium Level 140 mmol/L (136-145)
[2020-07-12] MEDS: Potassium Chloride 10mEq/100mL 10 MEQ/100 ML IV.SOLN. 100 MEQ IV BOLUS ×4 (09:10→12:48)
--- NOTE | 2020-07-12 09:29 | SP.MBSS_ITS ---
Modified Barium Swallow - Patient Information Study Date: 07/12/20 Study Time: 09:25 Diagnosis: Dysphagia Referring Physician: Theresa Llanos Reason for Referral: Objective assessment of swallow function, concern for silent aspiration Medical History: Pt is a 64 year old F with PMH including HTN, HLD, morbid obesity, overactive bladder/chronic urinary incontinence, bipolar disorder/anxiety/depression, alcohol and tobacco dependence in remission, inflammatory polyarthropathy, Atrial fibrillation, history of nonischemic cardiomyopathy, CABRERA, RLS, and chronic COPD. The pt presented to [facility] ED with reports of left eye vision changes and left-sided weakness which has been ongoing for 1 week. Patient was recently discharged from rehab unit 06/07/2020 following coiling of a PICA aneurysm by Dr. Luis at [facility] 04/25/2020. This was complicated by subarachnoid hemorrhage and intraventricular hemorrhage. Pt was receiving speech therapy during stay in inpatient rehab to address dysphagia and cognitive-linguistic impairments, including memory, word retrieval, and numerical processing. Pt was discharged on soft textures / thin liquids with distant supervision. Patient currently resides at [facility] following most recent CVA. MRI 07/10/2020 IMPRESSION: No acute intracranial abnormality. Involutional changes of the brain. Current Diet Ordered: NPO Dentition: Natural Teeth, Decay, Missing Teeth - numerous missing, limited dentition present Mental Status: Impaired - slowed processing, delayed initiation Respiratory Status: Oxygenating on Room Air - lung sounds diminished - Penetration-Aspiration Scale Penetration-Aspiration Scale: OBJECTIVE ASSESSMENT OF SWALLOW FUNCTION (QUANTITATIVE ? PER TRIAL): PENETRATION / ASPIRATION SCALE (BOURGEOIS): 1 = does not enter airway 2 = enters airway/above vocal folds/ejected 3 = enters airway/above vocal folds/not ejected 4 = enters airway/contacts vocal folds/ejected 5 = enters airway/contacts vocal folds/not ejected 6 = enters airway/below vocal folds/ejected 7 = enters airway/below vocal folds/not ejected despite effort 8 = enters airway/below vocal folds/no effort - Penetration-Aspiration Scale Score Thin Liquid via teaspoon Result: 1= does not enter airway Thin Liquid via teaspoon Trial 2 Result: 1= does not enter airway Thin Liquid via large single sip from cup Result: 3= enters airways/above vocal folds/not ejected Thin Liquid via large single sip from cup Trial 2 Result: 1= does not enter airway Pudding Result: 1= does not enter airway Cookie Result: 1= does not enter airway Thin Liquid via single sip from straw Result: 4= enters airway/contacts vocal folds/ejected Thin Liquid via single sip from straw Trial 2 Comment: tiny sip, view obstructed during swallow, unable to rate Thin Liquid via single sip from straw Trial 3 Result: 2= enter airway/above vocal folds/ejected Thin Liquid via small single sip from cup Result: 5= enters airways/contacts vocal folds/not ejected Comment: see impression Thin Liquid via small single sip from cup Trial 2 Result: 3= enters airways/above vocal folds/not ejected [place] Thick Liquid via small single sip from cup Result: 1= does not enter airway Thin Liquid via single sip from straw Chin tuck Comment: view obstructed w/ chin tuck, unable to rate Thin Liquid via single sip from straw Trial 4 Result: 1= does not enter airway Thin Liquid via single sip from straw Trial 5 Result: 1= does not enter airway - Oral Phase Labial Seal: No Labial Escape Tongue Control During Bolus Hold: Cohesive bolus between tongue to palatal seal Bolus Preparation/Mastication: Slow prolonged chewing/mashing with complete re collection Bolus Transport/Lingual Motion: Repetitive/disorganized tongue motion Oral Residue: Trace residue lining oral structures - Pharyngeal Phase Initiation of Pharyngeal Swallow: Bolus head at posterior laryngeal surgace of epiglottis Soft Palate Elevation: No bolus between soft palate and pharyngeal wall Laryngeal Elevation: Partial superior movement thyroid cart/partial apprx aryt- epig petiole Anterior Hyoid Excursion: Partial anterior movement Epiglottic Movement: Complete inversion Laryngeal Vestibule Closure at Height of Swallow: Incomplete; narrow column of air/contrast in laryngeal vestibule Pharyngeal Stripping Wave: Present - complete Pharyngoesophageal Segment Opening: Complete distension and complete duration; no obstruction of flow Tongue Base Retraction: Narrow column of contrast between tongue base & post. pharyngeal wall Pharyngeal Residue: Trace residue within or on pharyngeal structures - Esophageal Phase Esophageal Clearance: Complete clearance - Treatment Strategies Effects of Treatment Strategies Attempted:: Chin Tuck - view obstructed, unable to determine efficacy. Reduced liquid volume (small sips) - effective. Reduced bolus volume (small bites) - effective. Slow rate - effective, allowed time for independent initiation of a second swallow as needed to clear oral/pharyngeal residue. Straw use - effective, improved liquid bolus control - Diagnosis/Impression Diagnosis: Mild to moderate oropharyngeal dysphagia Impression: Pt presents w/ mild to moderate oropharyngeal dysphagia. Swallow function is characterized by prolonged mastication w/ discoranized lingual motion for A-P bolus transit. Premature pharyngeal bolus entry w/ suboptimal bolus location upon pharyngeal swallow onset, resulting in laryngeal vestibule penetration before/during deglutition. Penetration occurred to varying degrees in correlation to size of liquid bolus and method of intake. Thin liquid penetration was not consistently ejected from the laryngeal vestibule w/ suspected aspiration, although unable to confirm under fluoroscopy d/t patient's body habitus and fluoroscopy suite limitations which precluded complete and consistent visualization of the vocal folds/trachea. A delayed cough was noted following thin liquid penetration which contacted the vocal folds w/out ejection, w/ aspiration suspected. Laryngeal vestibule penetration was eliminated w/ thicker viscosities due to slower movement/improved bolus location at swallow onset. Penetration also reduced/eliminated w/ use of straw and w/ smaller volume sips. Pt was not able to consistently self-regulate liquid bolus volume during this study. This patient would benefit from skilled ST intervention targeting dyspahgia to improve swallow onset timing and hyolaryngeal excursion for improved airway protection during deglutiton. Thin liquid trials via straw to commence under direct THEATRICAL SCENIC DESIGNER supervision w/ advancement only after patient demonstrates consistent use of compensatory strategies w/out overt s/s aspiration, including increase in SOB, insp/exp wheeze, weak cough/throat clearing. - Recommendations Diet: Mechanical Soft Textures, [place]-thick Liquids Comment: thin liquid only under THEATRICAL SCENIC DESIGNER supervision Compensatory Strategies: Small Bites, Small Sips, Sips by straw only, Slow Rate, Feed only when alert, Sitting upright, Remain sitting upright for 30 minutes after PO intake Supervision: Distant Supervision Recommend Repeat Modified Barium Swallow: No Need for Skilled Speech Therapy Services: Yes - see impression for additional details Recommended Referrals: Dental Evaluation Education Completed: Described result of evaluation., Pt understands evaluation & agrees with goals and treatment plan., Family/caregivers understand evaluation & agree w/ goals & tx plan. - Image Count: 4,291 - Status Active ST Patient: Active - Contact Information Speech Therapist:: Dolores Higgins CCC-THEATRICAL SCENIC DESIGNER, MA Email:: [email or web address] Phone:: [phone]
[2020-07-12] MEDS: APIXABAN 5 MG TABLET PO (10:22)
[2020-07-12] MEDS: dilTIAZem CD 240 MG Capsule PO (10:22)
[2020-07-12] MEDS: lamoTRIgine 150 MG Tablet 225 MG PO (10:22)
[2020-07-12] MEDS: busPIRone 5 MG Tablet PO (13:20)
--- NOTE | 2020-07-12 16:29 | PCM.TXEXTCAR ---
- Diet 07/12/20 11:32 Diet: Cardiac - Heart Healthy Food consistency:: Mechanical (Minced/Moist) Liquid Consistency:: [place]/Mildly Thick Is pt able to select menu?: No Diet Comments: direct supervision, seated upright 90 degrees/alert, small sips w/ straw - Routine Orders/Code Status O2 Frequency: PRN Keep PO Greater than or Equal to (%): 94 Routine Lab Work: CBC - within 3 days, BMP - within 3 days - Wound(s) Right Ischium Wound Type: Pressure Injury Right Montero Wound Type: Laceration - Therapies Weight Bearing: Weight bearing as tolerated Physical Therapy: Eval and Treat Occupational Therapy: Eval and Treat Speech Therapy: Eval and Treat - Allergies/Procedures Done in Hospital Allergies/Adverse Reactions: Allergies morphine Allergy (Verified 07/08/20 13:52) Itching nifedipine [From Procardia] Adverse Reaction (Verified 07/08/20 13:52) Causes elevated BP Procedures: 2-D Echocardiogram - Type of Care/Length of Stay Estimated LOS: Convalescent Care Less Than 30 days Type of Care Needed: Skilled Rehab Potential: Good Prognosis: Good - Additional Orders/Day of Discharge Day of Discharge: 07/12/20 - Dietary and Speech Recommendations Dietitian Recommendations/Changes: Recommend cardiac diet- consistency per PATIENT RESOURCE SPECIALIST. - Follow Up Care Primary Care Physician: Osiel Grimaldo Chi, MD [Primary Care Provider] - Please follow up with your Primary Care Physician in: within 1-2 weeks of discharge
--- NOTE | 2020-07-12 16:45 | DS.PCM_ITS ---
Discharge Date and Diagnosis Date of Admission: 07/08/20 Date of Discharge: 07/12/20 - Primary Discharge Diagnosis Acute Problems: Shock/hypotension Strokelike symptoms related to hypotension, acute CVA ruled out Dysphagia Hypokalemia Hypomagnesemia - Secondary Discharge Diagnosis Chronic Problems: Chronic Problems (Last Reviewed 05/09/20 @ 14:[address] 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 Cope at [facility] Bipolar disorder (Chronic) Urinary incontinence (Chronic) Chronically on Toviaz Morbid obesity with BMI of 40.0-44.9, adult (Chronic) Tobacco dependence in remission (Chronic) quit in October of 1999 Alcohol dependence in remission (Chronic) quit in 2011? Venous insufficiency of both lower extremities (Chronic) Chronic anticoagulation (Chronic) With Eliquis for atrial fibrillation. Currently being held in light of recent hemorrhagic CVA due to rupture of aneurysm PICA Inflammatory polyarthropathy (Chronic) CABRERA (nonalcoholic steatohepatitis) (Chronic) Vitamin D deficiency (Chronic) Restless leg syndrome (Chronic) Left atrial enlargement (Chronic) Diplopia (Chronic) Subarachnoid hemorrhage due to ruptured aneurysm (Chronic) acute -associated with interventricular hemorrage on 04/26/20 1 day after coiling of the L PICA (04/25/20) Generalized anxiety disorder with panic attacks (Chronic) Drug-induced hyperglycemia (Chronic) Dysphagia (Chronic) predated the stroke Low HDL (under 40) (Chronic) Migraine headache without aura (Chronic) sx consistent with Migraine and there is a FH but, she has not been seen by neurology and is not on tx for migraines. Overactive bladder (Chronic) Pulmonary HTN (Chronic) Persistent atrial fibrillation (Chronic) normally on Eliquis DDD (degenerative disc disease), lumbar (Chronic) Segmental and somatic dysfunction of thoracic region (Chronic) Segmental and somatic dysfunction of pelvic region (Chronic) Segmental and somatic dysfunction of lumbar region (Chronic) Nonischemic cardiomyopathy (Chronic) Echocardiogram in June 2019 showed a 55% ejection fraction with no wall motion abnormalities. There was mild concentric left ventricular hypertrophy. The left ventricular systolic function had improved from the prior study. Hyperlipidemia (Chronic) Essential (primary) hypertension (Chronic) Hospital Course and Treatment Imaging Results: 07/12/20 09:35 Cookie Swallow [Swallowing Function w/Video] [RAD] Urgent Clinical Impression(s) from Imaging Studies Brain CT 07/08/20 13:56 IMPRESSION: No acute intracranial hemorrhage, mass effect or acute large territory infarcts. These consider MRI exam of the brain if there is clinical concern for hyperacute ischemia Electronically Signed: Anival Otero, at 14:22 EDT Tel , Service support , Head/Neck CTA 07/08/20 14:38 Chest X-Ray 07/08/20 20:14 IMPRESSION: PICC line with tip in the lower right atrium, recommend retraction by 8 cm. Electronically Signed: Jenn Kirkpatrick at 20:33 EDT Tel , Service support , Chest X-Ray 07/08/20 20:52 IMPRESSION: PICC line terminating with its tip in the SVC. Electronically Signed: Jenn Kirkpatrick at 21:53 EDT Tel , Service support , Chest X-Ray 07/08/20 21:41 IMPRESSION: Left PICC line with tip at the junction of the right atrium and SVC. Electronically Signed: Jenn Kirkpatrick at 22:23 EDT Tel , Service support , Brain MRI 07/10/20 09:01 IMPRESSION: No acute intracranial abnormality. Involutional changes of the brain Electronically Signed: Daiana Knott MD at 12:11 EDT Tel , Service support , Critical care Operations: None Procedures: 2-D Echocardiogram, - - modified barium swallow 07/12/20 Summary of Care Provided: 64-year-old female with multiple comorbidities including morbid obesity, recent history of CVA status post ruptured aneurysm in case of a subarachnoid hemorrhage and intraventricular hemorrhage who comes in with left eye vision changes and left-sided weakness ongoing for about 1 week. Patient was discharged recently from acute rehab on 06/07/20. Her vitals in the ED showed hypotension, systolic less than 80, persistent even after IV fluids bolus of almost 3 L. Her labs however show potassium of 2.9, magnesium 1.8. CTA of the head and neck was suggestive of possible early acute infarct in the right occipital lobe. She was admitted to the ICU, started on empiric antibiotics. Blood and urine cultures were negative. Patient received IV pressors overnight. Her blood pressures improved. She was resumed on a lower dose of cardizem. She was then transferred to the PCU and monitored further. patient was noted to have choked on her pills on 07/10/20. Speech therapy was following. MRI of the brain was negative for acute stroke. Patient underwent modified barium swallow found to have mild to moderate oropharyngeal dysphagia. She was recommended to be on mechanical soft texture, nectar thick liquids. Thin liquids only under speech therapy supervision. She was seen by PT and OT and skilled for discharge to detention facility. She will be followed also by speech therapy. Subjective: On the day of discharge, patient was seen and examined. She denied any new complaints. She feels much improved. Objective: Physical exam: General: Alert, Oriented x3, Cooperative, No apparent distress, - - Morbidly obese HEENT: Atraumatic, PERRLA, EOMI, Normocephalic Oral: Moist Mucosa Neck: Supple Lungs: Clear to auscultation, Normal air movement Cardiovascular: Regular rate, Regular Rhythm, Normal S1, Normal S2, No murmurs Abdomen: Bowel Sounds Present, Soft, Non Tender, Non-Distended, No Hepato- splenomegaly Extremities: Edema - Trace bilateral edema, erythema of the right lower extremity with an area of healed blister Skin: - - see under extremities Musculoskeletal: No Tenderness to Palpation of Joints or Extremities Lymphatic: No Cervical, Supraclavicular, or Inguinal Adenopathy Neurological: Cranial nerves II-XII grossly intact, Neuro grossly intact Psych/Mental Status: Normal Affect, Appropriate - Physical Exam Vitals/I&O's: Vital Signs Temp Pulse Resp BP Pulse Ox 98.6 F 104 H 18 126/65 H 93 07/12/20 15:50 07/12/20 15:53 07/12/20 15:53 07/12/20 15:50 07/12/20 15:53 Oxygen Flow Rate (L/min) 2 Oxygen Delivery Method Room Air Weight: 128.9 kg Body Mass Index (BMI) 45.0 Finger Stick Blood Glucose 154 Intake and Output for Last 24 Hours 07/10/20 07/11/20 07/12/20 23:59 23:59 23:59 Intake Total 972.5 / 972.5 300 / 300 520 / 520 Output Total 3295 / 3295 800 / 800 400 / 400 Balance -2322.5 / -2322.5 -500 / -500 120 / 120 Microbiology Past 72 Hours 07/08/20 19:41 Blood Culture (Wb) - Anticubital Left Blood Culture - Preliminary No growth in 48 hours. 07/08/20 19:41 Blood Culture (Wb) - Right Hand Blood Culture - Preliminary No growth in 48 hours. 07/08/20 16:15 Urine Catheter - Dubois Urine Culture - Final Culture exhibits no growth. Laboratory Results 07/12/20 06:31: WBC 6.4, RBC 3.67 L, Hgb 10.8 L, Hct 34.4 L, MCV 93.7, MCH 29.4, MCHC 31.4 L, RDW Std Deviation 71.8 H, RDW Coeff of Eric 21.2 H, Plt Count 277, MPV 9.1, Immature Gran % (Auto) 4.700 H, Neut % (Auto) 57.8, Lymph % (Auto) 26.9, Carter % (Auto) 8.1, Eos % (Auto) 1.7, Baso % (Auto) 0.8, Absolute Neuts (auto) 3.7, Absolute Lymphs (auto) 1.72, Nucleated RBC % 0, RBC Morphology N CHROM, Anisocytosis 2+ 07/12/20 06:31: Sodium 140, Potassium 3.2 L, Chloride 105, Carbon Dioxide 33.0 H , Anion Gap 2 L, BUN 9, Creatinine 0.23 L, Estim Creat Clear Calc 245.99, Est GFR (MDRD) Af Amer 395, Est GFR (MDRD) Non-Af 327, BUN/Creatinine Ratio 39.6 H, Glucose 82, Calcium 8.1 L, Total Bilirubin 0.60, AST 22, ALT 27, Alkaline Phosphatase 100, Total Protein 5.0 L, Albumin 2.3 L, Globulin 2.7, Albumin/Globulin Ratio 0.9 Current Medications Acetaminophen (Tylenol) 650 mg PO Q6H PRN PRN PRN Reason: Pain Score 1-10/Temp > 100.7 F Apixaban (Eliquis) 5 mg PO BID [facility] Last Admin: 07/12/20 10:22 Dose: 5 mg Documented by: Atorvastatin Calcium (Lipitor) 40 mg PO QHS [facility] Last Admin: 07/11/20 21:12 Dose: Not Given Documented by: Buspirone HCl (Buspar) 5 mg PO TID [facility] Last Admin: 07/12/20 13:20 Dose: 5 mg Documented by: Diltiazem HCl (Cardizem Cd) 240 mg PO BID [facility] Last Admin: 07/12/20 10:22 Dose: 240 mg Documented by: Heparin Sodium (Beef Lung) () 50 units IV UD PRN PRN Reason: PICC Line Heparin Flush Sodium Chloride () 250 mls @ 15 mls/hr IV .[id number] PRN PRN Reason: Saline Flush Last Infusion: 07/10/20 09:34 Dose: Infused Documented by: Sodium Chloride () 250 mls @ 15 mls/hr IV .[id number] PRN PRN Reason: Additional IVPB Infusion Lamotrigine (Lamictal) 225 mg PO BID [facility] Last Admin: 07/12/20 10:22 Dose: 225 mg Documented by: Ondansetron HCl (Zofran) 4 mg IV Q8H PRN PRN PRN Reason: NAUSEA/VOMITING Last Admin: 07/12/20 15:07 Dose: 4 mg Documented by: Pantoprazole Sodium (Protonix) 20 mg PO DAILY [facility] Last Admin: 07/12/20 10:25 Dose: Not Given Documented by: Senna/Docusate Sodium (Senokot-S, Sena-Colace) 1 tablet PO BID [facility] Last Admin: 07/12/20 10:25 Dose: Not Given Documented by: Sodium Chloride () 10 - 40 ml IV UD PRN PRN Reason: Open End PICC Flush Last Admin: 07/12/20 09:13 Dose: 10 ml Documented by: Sodium Chloride (0.9% Nacl (Sterile) Posiflush) 10 - 40 ml IV UD PRN PRN Reason: Port access or dressing change Sodium Chloride () 10 - 40 ml IV UD PRN PRN Reason: SALINE FLUSH Last Admin: 07/10/20 03:01 Dose: 10 ml Documented by: Discharge Diet: - - Diet: Mechanical Soft Textures, [place]-thick Liquids Discharge Activity: Return to Normal Activity Home Medications: Medications to take at Discharge albuterol sulfate 90 mcg/actuation aerosol inhaler 2 puff INHALATION Q4H PRN 30 Days #36 g 04/13/19 Acetaminophen 650 mg PO Q4H PRN PRN 05/08/20 Multivit with Iron,Minerals 1 tab PO DAILY 05/08/20 Vitamin E 400 units PO DAILY 05/08/20 traZODone [Desyrel] 100 mg PO QHS 05/08/20 Apixaban [Eliquis] 5 mg PO BID tab 06/06/20 Lamotrigine [Lamictal] 225 mg PO BID tab 06/06/20 Senna/Docusate Sodium [Senokot-S] 2 tab PO BID tab 06/06/20 Tolterodine Tartrate [Detrol LA] 2 mg PO DAILY cap.sa 06/06/20 Fluoxetine HCl 60 mg PO DAILY 06/29/20 Omeprazole 20 mg PO DAILY 06/29/20 Atorvastatin Calcium [Lipitor] 20 mg PO QHS 07/08/20 Bisacodyl 10 mg [place] DAILY PRN PRN 07/08/20 Buspirone HCl 5 mg PO TID 07/08/20 Capsaicin 1 applic TP TID 07/08/20 Cholecalciferol (Vitamin D3) [D3-50] 50,000 unit PO QMONTH 07/08/20 Diltiazem CD [Cardizem CD] 240 mg PO BID 07/08/20 Furosemide [Lasix] 20 mg PO DAILY 07/08/20 Lactobacillus Rhamnosus GG [Culturelle] 1 ea PO DAILY 07/08/20 Potassium Chloride [Klor-Con M20] 20 meq PO DAILY 5 Days #5 tab.er.prt 09/03/20 Following Prescriptions Were Given to Patient: Potassium Chloride [Klor-Con M20] 20 meq PO DAILY 5 Days #5 tab.er.prt Primary Care Physician: Osiel Grimaldo Chi, MD [Primary Care Provider] - Please follow up with your Primary Care Physician in: within 1-2 weeks of discharge Disposition: [facility] facility Minutes spent on discharge:: 40 Patient Condition:: Stable Medical Necessity - Tobacco Use Smoking Status: Former smoker Tobacco Use: Non-smoker Meaningful Use Info Meaningful Use Diagnoses (Choose all that apply): None applicable Inpatient E&M: 29247 Disch Hosp
[2020-07-12 17:38] LABS: Acetaminophen (Tylenol) Level 3.5 ug/mL (10.0-30.0)
[2020-07-12 17:39] LABS: Salicylate < 1.7 mg/dL (2.8-20.0)
== END 2020-07-12 18:37 | disposition skilled nursing facility (03) | DRG 315 ==
LOC: ED 17:08 → ICU 19:06 → PCU 07-09 13:10
PROVIDERS: Emergency Medicine; Admitting Provider Internal Medicine; Emergency Provider Emergency Medicine; PCP Family Medicine Geriatric Medicine; Visit Provider Internal Medicine
DX: I95.9 Hypotension, unspecified (principal); I42.8 Other cardiomyopathies; I48.19 Other persistent atrial fibrillation; Z68.43 Body mass index [BMI] 50.0-59.9, adult; R13.12 Dysphagia, oropharyngeal phase; E87.6 Hypokalemia; E83.42 Hypomagnesemia; S81.801A Unspecified open wound, right lower leg, initial encounter; Z86.73 Personal history of transient ischemic attack (TIA), and cerebral infarction without residual deficits; F31.9 Bipolar disorder, unspecified; E66.01 Morbid (severe) obesity due to excess calories; K75.81 Nonalcoholic steatohepatitis (NASH); G25.81 Restless legs syndrome; I27.20 Pulmonary hypertension, unspecified; N32.81 Overactive bladder; M51.36 Other intervertebral disc degeneration, lumbar region; E78.5 Hyperlipidemia, unspecified; I10 Essential (primary) hypertension; M99.02 Segmental and somatic dysfunction of thoracic region; M99.03 Segmental and somatic dysfunction of lumbar region; M99.05 Segmental and somatic dysfunction of pelvic region; F41.9 Anxiety disorder, unspecified; M06.4 Inflammatory polyarthropathy; J44.9 Chronic obstructive pulmonary disease, unspecified; G47.33 Obstructive sleep apnea (adult) (pediatric); K21.9 Gastro-esophageal reflux disease without esophagitis; Z79.82 Long term (current) use of aspirin; Z79.899 Other long term (current) drug therapy; Z79.01 Long term (current) use of anticoagulants; Z86.14 Personal history of Methicillin resistant Staphylococcus aureus infection; Z87.01 Personal history of pneumonia (recurrent); I67.1 Cerebral aneurysm, nonruptured; D64.9 Anemia, unspecified; M41.9 Scoliosis, unspecified; K74.60 Unspecified cirrhosis of liver; I87.2 Venous insufficiency (chronic) (peripheral); Z87.891 Personal history of nicotine dependence; Z87.898 Personal history of other specified conditions
CPT/HCPCS: 36415; 36569; 70450; 70496; 70498; 70551; 71045; 74230; 80053; 80061; 80329; 81001; 82962; 83036; 83605; 83735; 83880; 84484; 85025; 87040; 87086; 92526; 92610; 92611; 93005; 93306; 94762; 97110; 97112; 97162; 97166; 97530; 97802; 97803; 99285; J7030; J7040; J7050; Q9957; Q9967; A4216; C8929; G0480; J1940; J2405